=== PATIENT | female | born 1935 | race Caucasian/White ===

== ENCOUNTER → 2017-08-22 | Outpatient (REF) | payer OTHER, MEDICAID ==
[~2017-08-22] MED LIST: /ADVA50050; /TIOT18INH; CARD120T3; CARDIZEM CD; DUONSOL; LASI40TA; PRED20TA; ROBITUSSIN
[2017-08-23 09:54] LABS: CALCIUM LEVEL 9.1 MG/DL (8.8-10.2); GLOMERULAR FILTRATION RATE 56.8 (>32); POTASSIUM SERUM 4.8 MEQ/L (3.5-5.1)
== END ==
LOC: M LAB REF 16:05
PROVIDERS: ATTEND Internal Medicine Cardiovascular Disease
DX: J44.9 Chronic obstructive pulmonary disease, unspecified (principal); S76.211A Strain of adductor muscle, fascia and tendon of right thigh, initial encounter; X58.XXXA Exposure to other specified factors, initial encounter; Y92.89 Other specified places as the place of occurrence of the external cause; Y93.89 Activity, other specified; Y99.8 Other external cause status
CPT/HCPCS: 80048; G0463

== ENCOUNTER → 2017-10-18 | Outpatient (REF) | payer OTHER, MEDICAID | LOC: M SFHCCLAY 15:36 | DX: R35.0 Frequency of micturition (principal) | CPT/HCPCS: 87086 ==

== ENCOUNTER → 2017-11-06 | Outpatient (CLI) | payer OTHER, MEDICAID | LOC: M CLY 13:41 | DX: M16.12 Unilateral primary osteoarthritis, left hip (principal); M25.752 Osteophyte, left hip; M25.852 Other specified joint disorders, left hip; I10 Essential (primary) hypertension | CPT/HCPCS: 73502; 80048 ==

== ENCOUNTER → 2017-11-06 | Outpatient (REF) | payer OTHER, MEDICAID ==
[2017-11-06 18:24] LABS: ANION GAP 5 MEQ/L (8-16); BLOOD UREA NITROGEN 20 MG/DL (7-18); CALCIUM LEVEL 9.1 MG/DL (8.8-10.2); CARBON DIOXIDE LEVEL 36 MEQ/L (21-32); CHLORIDE LEVEL 98 MEQ/L (98-107); CREATININE FOR GFR 1.02 MG/DL (0.55-1.30); GLOMERULAR FILTRATION RATE 55.5 (>32); GLUCOSE, FASTING 131 MG/DL (70-100); SODIUM LEVEL 139 MEQ/L (136-145)
== END ==
LOC: M LABDRAWC 16:59
DX: I10 Essential (primary) hypertension (principal)
CPT/HCPCS: 80048

== ENCOUNTER → 2018-01-24 | Outpatient (REF) | payer OTHER, MEDICAID ==
[2018-01-24 18:37] LABS: ANION GAP 4 MEQ/L (8-16); BLOOD UREA NITROGEN 18 MG/DL (7-18); CALCIUM LEVEL 8.9 MG/DL (8.8-10.2); CARBON DIOXIDE LEVEL 38 MEQ/L (21-32); CHLORIDE LEVEL 99 MEQ/L (98-107); CREATININE FOR GFR 1.09 MG/DL (0.55-1.30); GLOMERULAR FILTRATION RATE 51.4 (>32); GLUCOSE, FASTING 101 MG/DL (70-100); POTASSIUM SERUM 4.3 MEQ/L (3.5-5.1); SODIUM LEVEL 141 MEQ/L (136-145)
== END ==
LOC: M LABDRWCV 17:37
DX: R60.9 Edema, unspecified (principal); I42.9 Cardiomyopathy, unspecified; N18.9 Chronic kidney disease, unspecified
CPT/HCPCS: 80048

== ENCOUNTER → 2018-02-20 | Outpatient (REF) | payer OTHER, MEDICAID ==
[2018-02-21 12:13] LABS: BASO # 0.1 10^3/uL (0.0-0.2); BASO % 0.4 % (0.0-1.0); EOS # 0.1 10^3/uL (0.0-0.50); EOS % 0.5 % (0.0-3.0); HEMATOCRIT 46.1 % (36.0-47.0); HEMOGLOBIN 14.7 g/dl (12.0-15.5); IMMATURE GRANULOCYTE % 0.6 % (0-3.0); LYMPH # 1.2 10^3/uL (1.5-4.5); LYMPH % 6.5 % (24.0-44.0); MEAN CORPUSCULAR HGB CONC 31.9 g/dl (32.0-36.5); MEAN CORPUSCULAR VOLUME 94.1 fl (80.0-96.0); MONO # 0.8 10^3/uL (0.0-0.8); MONO % 4.3 % (0.0-5.0); NEUTROPHILS # 16.4 10^3/uL (1.8-7.7); NEUTROPHILS % 87.7 % (36.0-66.0); PLATELET COUNT, AUTOMATED 251 10^3/uL (150-450); RED CELL DISTRIBUTION WIDTH 14.6 % (11.5-14.5); WHITE BLOOD COUNT 18.7 10^3/uL (4.0-10.0)
[2018-02-21 12:56] LABS: ALBUMIN/GLOBULIN RATIO 0.77 (1.00-1.93); ALKALINE PHOSPHATASE 76 U/L (45-117); ALT/SGPT 25 U/L (12-78); ANION GAP 9 MEQ/L (8-16); AST/SGOT 16 U/L (7-37); BILIRUBIN,TOTAL 0.4 MG/DL (0.2-1.0); BLOOD UREA NITROGEN 35 MG/DL (7-18); CALCIUM LEVEL 9.3 MG/DL (8.8-10.2); CARBON DIOXIDE LEVEL 40 MEQ/L (21-32); CHLORIDE LEVEL 89 MEQ/L (98-107); CHOLESTEROL LEVEL 179 MG/DL (<200); CHOLESTEROL RISK RATIO 2.934 (<5); CREATININE FOR GFR 1.36 MG/DL (0.55-1.30); DIGOXIN LEVEL 1.4 NG/ML (0.5-2.0); GLOMERULAR FILTRATION RATE 39.8 (>32); GLUCOSE, FASTING 176 MG/DL (70-100); HDL CHOLESTEROL 61 MG/DL (>40); LDL CHOLESTEROL 90.4 MG/DL (<100); NON-HDL-C 118 MG/DL; POTASSIUM SERUM 3.7 MEQ/L (3.5-5.1); SODIUM LEVEL 138 MEQ/L (136-145); TOTAL PROTEIN 6.9 GM/DL (6.4-8.2); TRIGLYCERIDES LEVEL 138 MG/DL (<150)
== END ==
LOC: M SFHCCLAY 14:21
DX: I10 Essential (primary) hypertension (principal); M16.12 Unilateral primary osteoarthritis, left hip; Z79.899 Other long term (current) drug therapy
CPT/HCPCS: 80162

== ENCOUNTER → 2018-03-11 | Outpatient (REF) | payer OTHER, MEDICAID ==
[2018-03-11 17:07] LABS: ANION GAP 9 MEQ/L (8-16); BLOOD UREA NITROGEN 21 MG/DL (7-18); CALCIUM LEVEL 9.7 MG/DL (8.8-10.2); CARBON DIOXIDE LEVEL 39 MEQ/L (21-32); CHLORIDE LEVEL 90 MEQ/L (98-107); CREATININE FOR GFR 1.28 MG/DL (0.55-1.30); GLOMERULAR FILTRATION RATE 42.7 (>32); GLUCOSE, FASTING 175 MG/DL (70-100); SODIUM LEVEL 138 MEQ/L (136-145)
[2018-03-11 18:18] LABS: BASO # 0.1 10^3/uL (0.0-0.2); BASO % 0.4 % (0.0-1.0); EOS # 0.1 10^3/uL (0.0-0.50); EOS % 0.8 % (0.0-3.0); HEMATOCRIT 44.2 % (36.0-47.0); HEMOGLOBIN 13.7 g/dl (12.0-15.5); IMMATURE GRANULOCYTE % 0.6 % (0-3.0); LYMPH # 2.2 10^3/uL (1.5-4.5); LYMPH % 13.8 % (24.0-44.0); MEAN CORPUSCULAR VOLUME 96.9 fl (80.0-96.0); MONO # 0.6 10^3/uL (0.0-0.8); NEUTROPHILS # 12.5 10^3/uL (1.8-7.7); NEUTROPHILS % 80.4 % (36.0-66.0); PLATELET COUNT, AUTOMATED 258 10^3/uL (150-450); RED BLOOD COUNT 4.56 10^6/uL (4.00-5.40); RED CELL DISTRIBUTION WIDTH 14.6 % (11.5-14.5); WHITE BLOOD COUNT 15.5 10^3/uL (4.0-10.0)
== END ==
LOC: M SFHCCAPE 10:48
DX: D72.829 Elevated white blood cell count, unspecified (principal); I27.9 Pulmonary heart disease, unspecified
CPT/HCPCS: 80048

== ENCOUNTER → 2018-03-26 | Outpatient (REF) | payer OTHER, MEDICAID ==
[2018-03-26 19:51] LABS: ANION GAP 5 MEQ/L (8-16); BLOOD UREA NITROGEN 13 MG/DL (7-18); CALCIUM LEVEL 8.9 MG/DL (8.8-10.2); CARBON DIOXIDE LEVEL 42 MEQ/L (21-32); CHLORIDE LEVEL 94 MEQ/L (98-107); CREATININE FOR GFR 1.14 MG/DL (0.55-1.30); GLOMERULAR FILTRATION RATE 48.8 (>32); GLUCOSE, FASTING 114 MG/DL (70-100); POTASSIUM SERUM 3.6 MEQ/L (3.5-5.1); SODIUM LEVEL 141 MEQ/L (136-145)
== END ==
LOC: M SFHCCLAY 10:56
DX: R60.0 Localized edema (principal)
CPT/HCPCS: 80048

== ENCOUNTER → 2018-08-19 | Outpatient (REF) | payer OTHER, MEDICAID ==
[2018-08-20 12:30] LABS: ALBUMIN 3.2 GM/DL (3.2-5.2); ALKALINE PHOSPHATASE 85 U/L (45-117); ALT/SGPT 34 U/L (12-78); ANION GAP 5 MEQ/L (8-16); AST/SGOT 21 U/L (7-37); BILIRUBIN,TOTAL 0.3 MG/DL (0.2-1.0); BLOOD UREA NITROGEN 21 MG/DL (7-18); CALCIUM LEVEL 9.6 MG/DL (8.8-10.2); CARBON DIOXIDE LEVEL 38 MEQ/L (21-32); CHLORIDE LEVEL 94 MEQ/L (98-107); CREATININE FOR GFR 1.21 MG/DL (0.55-1.30); DIGOXIN LEVEL 1.1 NG/ML (0.5-2.0); GLOMERULAR FILTRATION RATE 45.5 (>32); GLUCOSE, FASTING 171 MG/DL (70-100); POTASSIUM SERUM 4.8 MEQ/L (3.5-5.1); SODIUM LEVEL 137 MEQ/L (136-145); TOTAL PROTEIN 7.2 GM/DL (6.4-8.2)
== END ==
LOC: M SFHCCLAY 15:09
DX: R60.0 Localized edema (principal); I27.9 Pulmonary heart disease, unspecified; Z79.899 Other long term (current) drug therapy; Z23 Encounter for immunization
CPT/HCPCS: 80162

== ENCOUNTER 2018-09-01 17:15 | Inpatient (IN) | payer OTHER, MEDICAID ==
[~2018-09-01 17:15] MED LIST changes: -/ADVA50050; -/TIOT18INH; -CARD120T3; -CARDIZEM CD; -DUONSOL; +ETOMIDATE INJ 20MG/10ML VIAL; -LASI40TA; -PRED20TA; -ROBITUSSIN; +SUCCINYLCHOLINE 100 MG/5 ML SYRINGE (J0330)
[2018-09-01] MEDS: ETOMIDATE INJ 20MG/10ML VIAL IV (17:35)
[2018-09-01] MEDS: SUCCINYLCHOLINE INJ 200 MG/10 ML VIAL (J0330) IV (17:35)
[2018-09-01 17:50] LABS: BASO # 0.1 10^3/uL (0.0-0.2); BASO % 0.2 % (0.0-1.0); HEMATOCRIT 49.2 % (36.0-47.0); HEMOGLOBIN 14.7 g/dl (12.0-15.5); IMMATURE GRANULOCYTE % 0.7 % (0-3.0); LYMPH # 0.4 10^3/uL (1.5-4.5); LYMPH % 1.7 % (24.0-44.0); MEAN CORPUSCULAR HEMOGLOBIN 29.2 pg (27.0-33.0); MEAN CORPUSCULAR HGB CONC 29.9 g/dl (32.0-36.5); MEAN CORPUSCULAR VOLUME 97.8 fl (80.0-96.0); MONO % 3.9 % (0.0-5.0); NEUTROPHILS # 24.3 10^3/uL (1.8-7.7); NEUTROPHILS % 93.5 % (36.0-66.0); PLATELET COUNT, AUTOMATED 242 10^3/uL (150-450); RED BLOOD COUNT 5.03 10^6/uL (4.00-5.40); RED CELL DISTRIBUTION WIDTH 15.9 % (11.5-14.5)
[2018-09-01] MEDS: PROPOFOL 1,000 MG in APPROPRIATE DILUENT 1 EA IV (17:52)
[2018-09-01] MEDS: NS 1,000 ML IV ×2 (17:52→18:25)
[2018-09-01] MEDS ORDERED: MIDAZOLAM INJ 5 MG/ML VIAL (J2250) As Ordered (17:55)
[2018-09-01] MEDS: MIDAZOLAM INJ 5 MG/ML VIAL (J2250) IM (18:00)
[2018-09-01 18:11] LABS: ABG BASE EXCESS 12.7 (-2.0-2.0); ABG HCO3 46.9 MEQ/L (22.0-26.0); ABG PARTIAL PRESSURE O2 338.5 mmHg (75.0-100.0); ABG STANDARD HCO3 36.7 MEQ/L (22.0-26.0); ABG TOTAL CO2 50.8 MEQ/L (23.0-31.0)
[2018-09-01 18:13] LABS: ABG PARTIAL PRESSURE CO2 127.3 mmHg (35.0-45.0); ABG pH (ARTERIAL) 7.184 UNITS (7.350-7.450)
[2018-09-01 18:18] LABS: LACTIC ACID SEPSIS PROTOCOL 1.2 MMOL/L (0.4-2.0)
[2018-09-01] MEDS: dexameTHASONE 20 MG/5 ML VIAL (J1100) IV (18:20)
[2018-09-01] MEDS: MIDAZOLAM INJ 2 MG/2 ML VIAL (J2250) IV ×4 (18:35→22:20)
[2018-09-01] MEDS ORDERED: MIDAZOLAM INJ 2 MG/2 ML VIAL (J2250) As Ordered (18:35)
[2018-09-01 18:36] LABS: ANION GAP 3 MEQ/L (8-16); BLOOD UREA NITROGEN 17 MG/DL (7-18); CALCIUM LEVEL 10.3 MG/DL (8.8-10.2); CHLORIDE LEVEL 91 MEQ/L (98-107); CPK CREATINE PHOSPHOKINASE 131 U/L (26-192); CREATININE FOR GFR 1.04 MG/DL (0.55-1.30); GLOMERULAR FILTRATION RATE 54.1 (>32); GLUCOSE, FASTING 230 MG/DL (70-100); MB/CK RELATIVE INDEX 15.95 (< OR =4); NT-PRO BNP 2839 PG/ML (<450); POTASSIUM SERUM 4.5 MEQ/L (3.5-5.1); SODIUM LEVEL 140 MEQ/L (136-145); THYROID STIMULATING HORMONE 0.214 uIU/ML (0.358-3.740); TROPONIN I 0.35 NG/ML (< 0.10)
[2018-09-01] MEDS: PIPERACILLIN/TAZOBACTAM SOD 3.375 GM in D5W MINI-BAG PLUS 50 ML IV (18:46)
[2018-09-01 18:47] LABS: CARBON DIOXIDE LEVEL 46 MEQ/L (21-32)
[2018-09-01] MEDS: IPRATROPIUM 0.5MG/ALBUTEROL 2.5MG INH SOL UD 3ML (DUONEB)(J7620) NEB ×5 (18:52→23:20)
[2018-09-01 19:22] LABS: ABG BASE EXCESS 8.2 (-2.0-2.0); ABG O2 SATURATION 98.8 % (95.0-99.0); ABG PARTIAL PRESSURE O2 130.5 mmHg (75.0-100.0); ABG TOTAL CO2 40.5 MEQ/L (23.0-31.0); ABG pH (ARTERIAL) 7.287 UNITS (7.350-7.450)
[2018-09-01 19:26] LABS: ABG PARTIAL PRESSURE CO2 81.5 mmHg (35.0-45.0)
[2018-09-01] MEDS: D5W/0.45% SODIUM CHLORIDE 1,000 ML IV (19:39)
[2018-09-01] MEDS: AZITHROMYCIN INJ 500 MG, VIAL MATE ADAPTER 1 EACH in D5W 250 ML IV (21:36)
[2018-09-01] MEDS: HEPARIN SOD (PORCINE) 5000 UNITS/ML VIAL SC (21:36)
[2018-09-01] MEDS: methylPREDNISolone INJ 125 MG/2 ML VIAL (J2930) IV (21:36)
[2018-09-01] MEDS: cefTRIAXone SOD 1 GM in D5W MINI-BAG PLUS 50 ML IV (21:37)
[2018-09-01 22:56] LABS: ABG BASE EXCESS -1.7 (-2.0-2.0); ABG HCO3 23.2 MEQ/L (22.0-26.0); ABG PARTIAL PRESSURE O2 122.2 mmHg (75.0-100.0); ABG STANDARD HCO3 23.1 MEQ/L (22.0-26.0); ABG TOTAL CO2 24.5 MEQ/L (23.0-31.0); ABG pH (ARTERIAL) 7.382 UNITS (7.350-7.450)
[2018-09-02] MEDS: MIDAZOLAM INJ 2 MG/2 ML VIAL (J2250) IV ×6 (00:07→20:32)
[2018-09-02] MEDS: CHLORHEXIDINE ORAL RINSE 0.12%/15ML 120ML BOTTLE MT (00:08)
[2018-09-02] MEDS: IPRATROPIUM 0.5MG/ALBUTEROL 2.5MG INH SOL UD 3ML (DUONEB)(J7620) NEB ×5 (04:12→20:00)
[2018-09-02] MEDS: methylPREDNISolone INJ 125 MG/2 ML VIAL (J2930) IV ×3 (04:52→20:13)
[2018-09-02] MEDS: D5W/0.45% SODIUM CHLORIDE 1,000 ML IV ×4 (04:52→20:13)
[2018-09-02] MEDS: PROPOFOL 1,000 MG in APPROPRIATE DILUENT 1 EA IV ×3 (06:13→20:16)
[2018-09-02] MEDS: HEPARIN SOD (PORCINE) 5000 UNITS/ML VIAL SC ×3 (06:14→21:30)
[2018-09-02 06:16] LABS: BASO % 0.1 % (0.0-1.0); HEMATOCRIT 40.8 % (36.0-47.0); HEMOGLOBIN 12.7 g/dl (12.0-15.5); IMMATURE GRANULOCYTE % 0.4 % (0-3.0); LYMPH # 0.3 10^3/uL (1.5-4.5); LYMPH % 1.7 % (24.0-44.0); MEAN CORPUSCULAR HEMOGLOBIN 28.6 pg (27.0-33.0); MEAN CORPUSCULAR HGB CONC 31.1 g/dl (32.0-36.5); MEAN CORPUSCULAR VOLUME 91.9 fl (80.0-96.0); MONO # 0.2 10^3/uL (0.0-0.8); MONO % 1.3 % (0.0-5.0); NEUTROPHILS % 96.5 % (36.0-66.0); PLATELET COUNT, AUTOMATED 180 10^3/uL (150-450); RED BLOOD COUNT 4.44 10^6/uL (4.00-5.40); RED CELL DISTRIBUTION WIDTH 15.9 % (11.5-14.5); WHITE BLOOD COUNT 16.6 10^3/uL (4.0-10.0)
[2018-09-02 06:19] LABS: ABG BASE EXCESS 6.6 (-2.0-2.0); ABG HCO3 32.5 MEQ/L (22.0-26.0); ABG O2 SATURATION 97.7 % (95.0-99.0); ABG PARTIAL PRESSURE CO2 51.9 mmHg (35.0-45.0); ABG PARTIAL PRESSURE O2 90.1 mmHg (75.0-100.0); ABG STANDARD HCO3 30.5 MEQ/L (22.0-26.0); ABG TOTAL CO2 34.1 MEQ/L (23.0-31.0); ABG pH (ARTERIAL) 7.415 UNITS (7.350-7.450)
[2018-09-02 06:32] LABS: ALKALINE PHOSPHATASE 74 U/L (45-117); ALT/SGPT 52 U/L (12-78); ANION GAP 6 MEQ/L (8-16); AST/SGOT 28 U/L (7-37); BLOOD UREA NITROGEN 24 MG/DL (7-18); CALCIUM LEVEL 9.4 MG/DL (8.8-10.2); CARBON DIOXIDE LEVEL 36 MEQ/L (21-32); CHLORIDE LEVEL 94 MEQ/L (98-107); CPK CREATINE PHOSPHOKINASE 78 U/L (26-192); CREATININE FOR GFR 1.35 MG/DL (0.55-1.30); GLOMERULAR FILTRATION RATE 40.1 (>32); GLUCOSE, FASTING 297 MG/DL (70-100); LDH LACTATE DEHYDROGENASE 235 U/L (84-246); PHOSPHORUS LEVEL 1.1 MG/DL (2.5-4.9); POTASSIUM SERUM 3.8 MEQ/L (3.5-5.1); SODIUM LEVEL 136 MEQ/L (136-145)
[2018-09-02 06:33] LABS: ALBUMIN 2.4 GM/DL (3.2-5.2); ALBUMIN/GLOBULIN RATIO 0.57 (1.00-1.93); BILIRUBIN,TOTAL 0.3 MG/DL (0.2-1.0); CHOLESTEROL LEVEL 144 MG/DL (< 200); TOTAL PROTEIN 6.6 GM/DL (6.4-8.2); TRIGLYCERIDES LEVEL 63 MG/DL (<150)
[2018-09-02 06:45] LABS: ADD MANUAL DIFFER NO; DIFF SLIDE NUMBER 122; POSITIVE DIFF POS FLAG
[2018-09-02] MEDS: DIGOXIN 0.125 MG TAB PO (09:00)
[2018-09-02] MEDS: CHLORHEXIDINE GLUCONATE 0.12 % 15ML UDC (PERIDEX ORAL RINSE) MT ×2 (09:37→20:14)
[2018-09-02] MEDS ORDERED: DEXTROSE 50% 50 ML SYRINGE IV (09:45)
[2018-09-02] MEDS ORDERED: GLUCOSE 4 GM CHEW TABLET PO (09:45)
[2018-09-02] MEDS ORDERED: GLUCAGON FOR INJ 1 MG VIAL (J1610) SC (09:45)
[2018-09-02 09:47] LABS: MB/CK RELATIVE INDEX 10.38 (< OR =4); NT-PRO BNP 3834 PG/ML (<450)
[2018-09-02 12:12] LABS: ABG BASE EXCESS 8.7 (-2.0-2.0); ABG HCO3 35.3 MEQ/L (22.0-26.0); ABG O2 SATURATION 96.3 % (95.0-99.0); ABG PARTIAL PRESSURE CO2 57.4 mmHg (35.0-45.0); ABG PARTIAL PRESSURE O2 78.4 mmHg (75.0-100.0); ABG STANDARD HCO3 32.5 MEQ/L (22.0-26.0); ABG TOTAL CO2 37.1 MEQ/L (23.0-31.0); ABG pH (ARTERIAL) 7.407 UNITS (7.350-7.450)
[2018-09-02 12:16] LABS: BEDSIDE GLUCOSE 342 MG/DL (83-110)
[2018-09-02] MEDS: HumaLOG INSULIN (NovoLOG) PER UNIT SC ×2 (12:17→18:10)
[2018-09-02] MEDS: MORPHINE 4 MG/ML 1ML VIAL/SYRINGE (J2270) IV (14:06)
[2018-09-02] MEDS ORDERED: SODIUM CHLORIDE 0.9% INJ 10 ML SYR IV (14:15)
[2018-09-02] MEDS ORDERED: SLF 3 ML SYR IV (14:15)
[2018-09-02 14:27] LABS: ANION GAP 7 MEQ/L (8-16); BLOOD UREA NITROGEN 24 MG/DL (7-18); CALCIUM LEVEL 8.8 MG/DL (8.8-10.2); CARBON DIOXIDE LEVEL 35 MEQ/L (21-32); CHLORIDE LEVEL 94 MEQ/L (98-107); CREATININE FOR GFR 1.36 MG/DL (0.55-1.30); GLOMERULAR FILTRATION RATE 39.7 (>32); GLUCOSE, FASTING 340 MG/DL (70-100); POTASSIUM SERUM 3.8 MEQ/L (3.5-5.1); SODIUM LEVEL 136 MEQ/L (136-145)
[2018-09-02 14:58] LABS: CPK CREATINE PHOSPHOKINASE 60 U/L (26-192); MB/CK RELATIVE INDEX 7.67 (< OR =4); TROPONIN I 0.62 NG/ML (< 0.10)
[2018-09-02 16:15] LABS: ABG BASE EXCESS 7.2 (-2.0-2.0); ABG HCO3 33.5 MEQ/L (22.0-26.0); ABG O2 SATURATION 97.3 % (95.0-99.0); ABG PARTIAL PRESSURE CO2 55.4 mmHg (35.0-45.0); ABG TOTAL CO2 35.2 MEQ/L (23.0-31.0)
[2018-09-02 18:03] LABS: BEDSIDE GLUCOSE 383 MG/DL (83-110)
[2018-09-02] MEDS: ASPIRIN 325 MG TAB NG (18:09)
[2018-09-02] MEDS: PANTOPRAZOLE 40MG INJ (PROTONIX) (C9113) IV (20:12)
[2018-09-02] MEDS: AZITHROMYCIN INJ 500 MG, VIAL MATE ADAPTER 1 EACH in D5W 250 ML IV (20:13)
[2018-09-02] MEDS: cefTRIAXone SOD 1 GM in D5W MINI-BAG PLUS 50 ML IV (21:29)
[2018-09-02] MEDS: SLF 3 ML SYR IV (21:30)
[2018-09-02] MEDS: SODIUM CHLORIDE 0.9% INJ 10 ML SYR IV (21:30)
[2018-09-02 23:58] LABS: BEDSIDE GLUCOSE 356 MG/DL (83-110)
[2018-09-03] MEDS: HumaLOG INSULIN (NovoLOG) PER UNIT SC ×5 (00:01→23:16)
[2018-09-03] MEDS: PROPOFOL 1,000 MG in APPROPRIATE DILUENT 1 EA IV ×4 (00:02→23:17)
[2018-09-03] MEDS: MIDAZOLAM INJ 2 MG/2 ML VIAL (J2250) IV ×5 (00:02→06:34)
[2018-09-03] MEDS: IPRATROPIUM 0.5MG/ALBUTEROL 2.5MG INH SOL UD 3ML (DUONEB)(J7620) NEB ×7 (00:05→23:40)
[2018-09-03] MEDS: D5W/0.45% SODIUM CHLORIDE 1,000 ML IV ×2 (02:00→05:20)
[2018-09-03 05:12] LABS: BEDSIDE GLUCOSE 421 MG/DL (83-110)
[2018-09-03] MEDS: methylPREDNISolone INJ 125 MG/2 ML VIAL (J2930) IV ×3 (05:14→20:14)
[2018-09-03] MEDS: HEPARIN SOD (PORCINE) 5000 UNITS/ML VIAL SC ×3 (05:18→21:05)
[2018-09-03] MEDS: SODIUM CHLORIDE 0.9% INJ 10 ML SYR IV ×3 (05:19→21:05)
[2018-09-03] MEDS: SLF 3 ML SYR IV ×3 (05:19→21:05)
[2018-09-03 05:20] LABS: BASO % 0.1 % (0.0-1.0); HEMATOCRIT 36.9 % (36.0-47.0); HEMOGLOBIN 11.5 g/dl (12.0-15.5); IMMATURE GRANULOCYTE % 0.9 % (0-3.0); LYMPH # 0.3 10^3/uL (1.5-4.5); LYMPH % 1.9 % (24.0-44.0); MEAN CORPUSCULAR HEMOGLOBIN 28.8 pg (27.0-33.0); MEAN CORPUSCULAR HGB CONC 31.2 g/dl (32.0-36.5); MEAN CORPUSCULAR VOLUME 92.3 fl (80.0-96.0); MONO # 0.5 10^3/uL (0.0-0.8); MONO % 2.9 % (0.0-5.0); NEUTROPHILS # 15.3 10^3/uL (1.8-7.7); NEUTROPHILS % 94.2 % (36.0-66.0); PLATELET COUNT, AUTOMATED 166 10^3/uL (150-450); WHITE BLOOD COUNT 16.2 10^3/uL (4.0-10.0)
[2018-09-03 05:48] LABS: ABG BASE EXCESS 1.7 (-2.0-2.0); ABG HCO3 28.4 MEQ/L (22.0-26.0); ABG O2 SATURATION 96.8 % (95.0-99.0); ABG PARTIAL PRESSURE CO2 53.9 mmHg (35.0-45.0); ABG PARTIAL PRESSURE O2 86.2 mmHg (75.0-100.0); ABG TOTAL CO2 30.1 MEQ/L (23.0-31.0)
[2018-09-03 05:52] LABS: ALBUMIN 2.2 GM/DL (3.2-5.2); ALBUMIN/GLOBULIN RATIO 0.71 (1.00-1.93); ALKALINE PHOSPHATASE 73 U/L (45-117); ALT/SGPT 41 U/L (12-78); ANION GAP 6 MEQ/L (8-16); AST/SGOT 14 U/L (7-37); BILIRUBIN,TOTAL 0.1 MG/DL (0.2-1.0); BLOOD UREA NITROGEN 26 MG/DL (7-18); CALCIUM LEVEL 8.2 MG/DL (8.8-10.2); CARBON DIOXIDE LEVEL 34 MEQ/L (21-32); CHLORIDE LEVEL 97 MEQ/L (98-107); CHOLESTEROL LEVEL 129 MG/DL (< 200); CPK CREATINE PHOSPHOKINASE 36 U/L (26-192); CREATININE FOR GFR 1.15 MG/DL (0.55-1.30); GLOMERULAR FILTRATION RATE 48.2 (>32); GLUCOSE, FASTING 434 MG/DL (70-100); LDH LACTATE DEHYDROGENASE 183 U/L (84-246); PHOSPHORUS LEVEL 1.4 MG/DL (2.5-4.9); SODIUM LEVEL 137 MEQ/L (136-145); TOTAL PROTEIN 5.3 GM/DL (6.4-8.2); TRIGLYCERIDES LEVEL 79 MG/DL (<150)
[2018-09-03] MEDS ORDERED: ASPIRIN 81 MG ENTERIC TAB PO (09:00)
[2018-09-03] MEDS: CHLORHEXIDINE GLUCONATE 0.12 % 15ML UDC (PERIDEX ORAL RINSE) MT ×2 (09:15→21:04)
[2018-09-03] MEDS: ASPIRIN 81 MG CHEW TABLET NG (09:15)
[2018-09-03] MEDS: FUROSEMIDE 20 MG/2 ML VIAL (J1940) IV ×2 (09:15→17:22)
[2018-09-03 11:19] LABS: ABG BASE EXCESS 7.2 (-2.0-2.0); ABG HCO3 34.8 MEQ/L (22.0-26.0); ABG O2 SATURATION 96.1 % (95.0-99.0); ABG PARTIAL PRESSURE O2 76.7 mmHg (75.0-100.0); ABG TOTAL CO2 36.8 MEQ/L (23.0-31.0); ABG pH (ARTERIAL) 7.353 UNITS (7.350-7.450)
[2018-09-03 11:20] LABS: ABG PARTIAL PRESSURE CO2 64.1 mmHg (35.0-45.0)
[2018-09-03 11:31] LABS: BEDSIDE GLUCOSE 290 MG/DL (83-110)
[2018-09-03 17:16] LABS: BEDSIDE GLUCOSE 212 MG/DL (83-110)
[2018-09-03] MEDS: PANTOPRAZOLE 40MG INJ (PROTONIX) (C9113) IV (20:14)
[2018-09-03] MEDS: cefTRIAXone SOD 1 GM in D5W MINI-BAG PLUS 50 ML IV (20:14)
[2018-09-03 23:16] LABS: BEDSIDE GLUCOSE 234 MG/DL (83-110)
[2018-09-04] MEDS: IPRATROPIUM 0.5MG/ALBUTEROL 2.5MG INH SOL UD 3ML (DUONEB)(J7620) NEB ×6 (02:27→23:35)
[2018-09-04 04:11] LABS: BASO % 0.2 % (0.0-1.0); HEMATOCRIT 38.7 % (36.0-47.0); HEMOGLOBIN 12.1 g/dl (12.0-15.5); IMMATURE GRANULOCYTE % 1.6 % (0-3.0); LYMPH # 0.3 10^3/uL (1.5-4.5); LYMPH % 2.3 % (24.0-44.0); MEAN CORPUSCULAR HEMOGLOBIN 28.7 pg (27.0-33.0); MEAN CORPUSCULAR HGB CONC 31.3 g/dl (32.0-36.5); MEAN CORPUSCULAR VOLUME 91.9 fl (80.0-96.0); MONO # 0.4 10^3/uL (0.0-0.8); MONO % 2.4 % (0.0-5.0); NEUTROPHILS # 14.1 10^3/uL (1.8-7.7); NEUTROPHILS % 93.5 % (36.0-66.0); PLATELET COUNT, AUTOMATED 181 10^3/uL (150-450); RED BLOOD COUNT 4.21 10^6/uL (4.00-5.40); RED CELL DISTRIBUTION WIDTH 16.7 % (11.5-14.5); WHITE BLOOD COUNT 15.1 10^3/uL (4.0-10.0)
[2018-09-04 04:40] LABS: ALBUMIN 2.4 GM/DL (3.2-5.2); ALKALINE PHOSPHATASE 83 U/L (45-117); ALT/SGPT 62 U/L (12-78); ANION GAP 5 MEQ/L (8-16); AST/SGOT 26 U/L (7-37); BILIRUBIN,TOTAL 0.2 MG/DL (0.2-1.0); BLOOD UREA NITROGEN 37 MG/DL (7-18); CALCIUM LEVEL 8.4 MG/DL (8.8-10.2); CARBON DIOXIDE LEVEL 36 MEQ/L (21-32); CHLORIDE LEVEL 98 MEQ/L (98-107); CHOLESTEROL LEVEL 149 MG/DL (< 200); CPK CREATINE PHOSPHOKINASE 28 U/L (26-192); CREATININE FOR GFR 1.23 MG/DL (0.55-1.30); GLOMERULAR FILTRATION RATE 44.6 (>32); GLUCOSE, FASTING 245 MG/DL (70-100); LDH LACTATE DEHYDROGENASE 206 U/L (84-246); PHOSPHORUS LEVEL 2.3 MG/DL (2.5-4.9); POTASSIUM SERUM 4.4 MEQ/L (3.5-5.1); SODIUM LEVEL 139 MEQ/L (136-145); TOTAL PROTEIN 6.4 GM/DL (6.4-8.2); TRIGLYCERIDES LEVEL 126 MG/DL (<150)
[2018-09-04] MEDS: PROPOFOL 1,000 MG in APPROPRIATE DILUENT 1 EA IV ×3 (05:05→16:13)
[2018-09-04] MEDS: methylPREDNISolone INJ 125 MG/2 ML VIAL (J2930) IV (05:05)
[2018-09-04] MEDS: HEPARIN SOD (PORCINE) 5000 UNITS/ML VIAL SC ×3 (05:06→21:05)
[2018-09-04] MEDS: HumaLOG INSULIN (NovoLOG) PER UNIT SC ×3 (05:07→17:57)
[2018-09-04] MEDS: SODIUM CHLORIDE 0.9% INJ 10 ML SYR IV ×3 (05:07→21:05)
[2018-09-04] MEDS: SLF 3 ML SYR IV ×3 (05:07→21:05)
[2018-09-04 06:04] LABS: ABG BASE EXCESS 8.8 (-2.0-2.0); ABG HCO3 34.4 MEQ/L (22.0-26.0); ABG O2 SATURATION 97.4 % (95.0-99.0); ABG PARTIAL PRESSURE CO2 51.5 mmHg (35.0-45.0); ABG STANDARD HCO3 32.5 MEQ/L (22.0-26.0); ABG TOTAL CO2 35.9 MEQ/L (23.0-31.0); ABG pH (ARTERIAL) 7.442 UNITS (7.350-7.450)
[2018-09-04] MEDS: ASPIRIN 81 MG CHEW TABLET NG (08:56)
[2018-09-04] MEDS: FUROSEMIDE 20 MG/2 ML VIAL (J1940) IV ×2 (08:56→16:18)
[2018-09-04] MEDS: CHLORHEXIDINE GLUCONATE 0.12 % 15ML UDC (PERIDEX ORAL RINSE) MT ×2 (08:56→21:05)
[2018-09-04] MEDS: BISACODYL 10 MG SUPP PR (09:02)
[2018-09-04] MEDS: POLYVINYL ALCOHOL OPHTH SOLN 15 ML(LIQUITEARS) OU ×4 (10:59→21:04)
[2018-09-04 12:07] LABS: BEDSIDE GLUCOSE 201 MG/DL (83-110)
[2018-09-04 17:55] LABS: BEDSIDE GLUCOSE 222 MG/DL (83-110)
[2018-09-04] MEDS: methylPREDNISolone INJ 40 MG/1 ML VIAL (J2920) IV (17:57)
[2018-09-04] MEDS: PANTOPRAZOLE 40MG INJ (PROTONIX) (C9113) IV (21:04)
[2018-09-04] MEDS: cefTRIAXone SOD 1 GM in D5W MINI-BAG PLUS 50 ML IV (21:05)
[2018-09-04 23:24] LABS: BEDSIDE GLUCOSE 258 MG/DL (83-110)
[2018-09-05] MEDS: IPRATROPIUM 0.5MG/ALBUTEROL 2.5MG INH SOL UD 3ML (DUONEB)(J7620) NEB ×6 (04:09→22:50)
[2018-09-05 04:36] LABS: BASO # 0.1 10^3/uL (0.0-0.2); BASO % 0.4 % (0.0-1.0); EOS % 0.2 % (0.0-3.0); HEMATOCRIT 38.8 % (36.0-47.0); LYMPH # 0.4 10^3/uL (1.5-4.5); LYMPH % 3.4 % (24.0-44.0); MEAN CORPUSCULAR HEMOGLOBIN 28.6 pg (27.0-33.0); MEAN CORPUSCULAR HGB CONC 30.9 g/dl (32.0-36.5); MEAN CORPUSCULAR VOLUME 92.6 fl (80.0-96.0); MONO # 0.5 10^3/uL (0.0-0.8); NEUTROPHILS # 11.7 10^3/uL (1.8-7.7); PLATELET COUNT, AUTOMATED 189 10^3/uL (150-450); RED BLOOD COUNT 4.19 10^6/uL (4.00-5.40); RED CELL DISTRIBUTION WIDTH 16.9 % (11.5-14.5); WHITE BLOOD COUNT 13.1 10^3/uL (4.0-10.0)
[2018-09-05 05:08] LABS: ALBUMIN 2.4 GM/DL (3.2-5.2); ALBUMIN/GLOBULIN RATIO 0.62 (1.00-1.93); ALKALINE PHOSPHATASE 84 U/L (45-117); ALT/SGPT 102 U/L (12-78); ANION GAP 3 MEQ/L (8-16); AST/SGOT 41 U/L (7-37); BILIRUBIN,TOTAL 0.2 MG/DL (0.2-1.0); BLOOD UREA NITROGEN 51 MG/DL (7-18); CALCIUM LEVEL 8.3 MG/DL (8.8-10.2); CARBON DIOXIDE LEVEL 40 MEQ/L (21-32); CHLORIDE LEVEL 97 MEQ/L (98-107); CHOLESTEROL LEVEL 158 MG/DL (< 200); CPK CREATINE PHOSPHOKINASE 31 U/L (26-192); CREATININE FOR GFR 1.24 MG/DL (0.55-1.30); GLOMERULAR FILTRATION RATE 44.2 (>32); GLUCOSE, FASTING 240 MG/DL (70-100); LDH LACTATE DEHYDROGENASE 230 U/L (84-246); PHOSPHORUS LEVEL 3.1 MG/DL (2.5-4.9); POTASSIUM SERUM 4.6 MEQ/L (3.5-5.1); SODIUM LEVEL 140 MEQ/L (136-145); TOTAL PROTEIN 6.3 GM/DL (6.4-8.2); TRIGLYCERIDES LEVEL 154 MG/DL (<150)
[2018-09-05] MEDS: methylPREDNISolone INJ 40 MG/1 ML VIAL (J2920) IV ×2 (05:21→17:20)
[2018-09-05] MEDS: HEPARIN SOD (PORCINE) 5000 UNITS/ML VIAL SC ×3 (05:21→21:08)
[2018-09-05] MEDS: HumaLOG INSULIN (NovoLOG) PER UNIT SC ×2 (05:21)
[2018-09-05] MEDS: SODIUM CHLORIDE 0.9% INJ 10 ML SYR IV ×2 (05:22→12:55)
[2018-09-05] MEDS: SLF 3 ML SYR IV ×3 (05:22→21:09)
[2018-09-05 06:17] LABS: ABG BASE EXCESS 13.8 (-2.0-2.0); ABG HCO3 41.2 MEQ/L (22.0-26.0); ABG O2 SATURATION 97.2 % (95.0-99.0); ABG PARTIAL PRESSURE O2 91.9 mmHg (75.0-100.0); ABG STANDARD HCO3 37.6 MEQ/L (22.0-26.0); ABG TOTAL CO2 43.2 MEQ/L (23.0-31.0); ABG pH (ARTERIAL) 7.411 UNITS (7.350-7.450)
[2018-09-05 06:19] LABS: ABG PARTIAL PRESSURE CO2 73.2 mmHg (35.0-45.0)
[2018-09-05] MEDS: CHLORHEXIDINE GLUCONATE 0.12 % 15ML UDC (PERIDEX ORAL RINSE) MT (09:13)
[2018-09-05] MEDS: FUROSEMIDE 20 MG/2 ML VIAL (J1940) IV ×2 (09:13→17:21)
[2018-09-05] MEDS: ASPIRIN 81 MG CHEW TABLET NG (09:13)
[2018-09-05] MEDS: POLYVINYL ALCOHOL OPHTH SOLN 15 ML(LIQUITEARS) OU ×4 (09:14→21:09)
[2018-09-05 11:38] LABS: ABG BASE EXCESS 14.3 (-2.0-2.0); ABG O2 SATURATION 96.6 % (95.0-99.0); ABG PARTIAL PRESSURE O2 84.4 mmHg (75.0-100.0); ABG STANDARD HCO3 38.1 MEQ/L (22.0-26.0); ABG pH (ARTERIAL) 7.414 UNITS (7.350-7.450)
[2018-09-05 11:42] LABS: ABG PARTIAL PRESSURE CO2 67.1 mmHg (35.0-45.0)
[2018-09-05] MEDS: PANTOPRAZOLE 40MG INJ (PROTONIX) (C9113) IV (21:08)
[2018-09-05] MEDS: cefTRIAXone SOD 1 GM in D5W MINI-BAG PLUS 50 ML IV (21:08)
[2018-09-06 05:11] LABS: BASO # 0.1 10^3/uL (0.0-0.2); BASO % 0.5 % (0.0-1.0); EOS % 0.3 % (0.0-3.0); HEMATOCRIT 38.8 % (36.0-47.0); LYMPH # 0.5 10^3/uL (1.5-4.5); LYMPH % 5.4 % (24.0-44.0); MEAN CORPUSCULAR HEMOGLOBIN 28.6 pg (27.0-33.0); MEAN CORPUSCULAR HGB CONC 30.9 g/dl (32.0-36.5); MEAN CORPUSCULAR VOLUME 92.6 fl (80.0-96.0); MONO # 0.5 10^3/uL (0.0-0.8); MONO % 4.5 % (0.0-5.0); NEUTROPHILS # 8.4 10^3/uL (1.8-7.7); NEUTROPHILS % 84.3 % (36.0-66.0); PLATELET COUNT, AUTOMATED 174 10^3/uL (150-450); RED BLOOD COUNT 4.19 10^6/uL (4.00-5.40); RED CELL DISTRIBUTION WIDTH 16.7 % (11.5-14.5)
[2018-09-06 05:20] LABS: ALBUMIN 2.3 GM/DL (3.2-5.2); ALBUMIN/GLOBULIN RATIO 0.61 (1.00-1.93); ALKALINE PHOSPHATASE 73 U/L (45-117); ALT/SGPT 112 U/L (12-78); ANION GAP 3 MEQ/L (8-16); AST/SGOT 30 U/L (7-37); BILIRUBIN,TOTAL 0.2 MG/DL (0.2-1.0); BLOOD UREA NITROGEN 48 MG/DL (7-18); CALCIUM LEVEL 8.1 MG/DL (8.8-10.2); CARBON DIOXIDE LEVEL 41 MEQ/L (21-32); CHLORIDE LEVEL 96 MEQ/L (98-107); CHOLESTEROL LEVEL 174 MG/DL (< 200); CPK CREATINE PHOSPHOKINASE 44 U/L (26-192); CREATININE FOR GFR 0.98 MG/DL (0.55-1.30); GLUCOSE, FASTING 238 MG/DL (70-100); LDH LACTATE DEHYDROGENASE 239 U/L (84-246); PHOSPHORUS LEVEL 3.3 MG/DL (2.5-4.9); POTASSIUM SERUM 4.5 MEQ/L (3.5-5.1); SODIUM LEVEL 140 MEQ/L (136-145); TOTAL PROTEIN 6.1 GM/DL (6.4-8.2); TRIGLYCERIDES LEVEL 135 MG/DL (<150)
[2018-09-06] MEDS: IPRATROPIUM 0.5MG/ALBUTEROL 2.5MG INH SOL UD 3ML (DUONEB)(J7620) NEB ×5 (05:26→20:00)
[2018-09-06] MEDS: SLF 3 ML SYR IV ×3 (05:52→21:28)
[2018-09-06] MEDS: HEPARIN SOD (PORCINE) 5000 UNITS/ML VIAL SC ×3 (05:52→21:27)
[2018-09-06] MEDS: methylPREDNISolone INJ 40 MG/1 ML VIAL (J2920) IV (05:52)
[2018-09-06 06:04] LABS: ABG BASE EXCESS 16.6 (-2.0-2.0); ABG HCO3 44.3 MEQ/L (22.0-26.0); ABG O2 SATURATION 97.6 % (95.0-99.0); ABG STANDARD HCO3 40.6 MEQ/L (22.0-26.0); ABG TOTAL CO2 46.4 MEQ/L (23.0-31.0)
[2018-09-06 06:06] LABS: ABG PARTIAL PRESSURE CO2 68.3 mmHg (35.0-45.0)
[2018-09-06] MEDS: TIOTROPIUM INHALER/CAPSULE (SPIRIVA) INH (08:00)
[2018-09-06] MEDS: ASPIRIN 81 MG CHEW TABLET NG (08:39)
[2018-09-06] MEDS: FUROSEMIDE 20 MG/2 ML VIAL (J1940) IV ×2 (08:40→17:10)
[2018-09-06] MEDS: POLYVINYL ALCOHOL OPHTH SOLN 15 ML(LIQUITEARS) OU ×4 (08:40→21:28)
[2018-09-06 14:58] LABS: ESTIMATED AVERAGE GLUCOSE 186 MG/DL (60-110); HEMOGLOBIN A1c 8.1 %
[2018-09-06 17:05] LABS: BEDSIDE GLUCOSE 196 MG/DL (83-110)
[2018-09-06] MEDS: HumaLOG INSULIN (NovoLOG) PER UNIT SC ×2 (17:09→21:00)
[2018-09-06] MEDS: FORMOTEROL FUMARATE 20 MCG/2 ML INHALATION SOLUTION (PERFOROMIST) INH (20:09)
[2018-09-06] MEDS: BUDESONIDE 0.5 MG/2 ML INHALATION SUSPENSION INH (20:09)
[2018-09-06] MEDS: ATORVASTATIN 20 MG TAB PO (21:00)
[2018-09-06 21:02] LABS: BEDSIDE GLUCOSE 171 MG/DL (83-110)
[2018-09-06] MEDS: cefTRIAXone SOD 1 GM in D5W MINI-BAG PLUS 50 ML IV (21:27)
[2018-09-06] MEDS: PANTOPRAZOLE 40MG INJ (PROTONIX) (C9113) IV (21:27)
[2018-09-07] MEDS: IPRATROPIUM 0.5MG/ALBUTEROL 2.5MG INH SOL UD 3ML (DUONEB)(J7620) NEB ×5 (00:01→23:11)
[2018-09-07 05:05] LABS: HEMATOCRIT 40.2 % (36.0-47.0); HEMOGLOBIN 12.1 g/dl (12.0-15.5); MEAN CORPUSCULAR HEMOGLOBIN 28.3 pg (27.0-33.0); MEAN CORPUSCULAR HGB CONC 30.1 g/dl (32.0-36.5); MEAN CORPUSCULAR VOLUME 93.9 fl (80.0-96.0); PLATELET COUNT, AUTOMATED 159 10^3/uL (150-450); RED BLOOD COUNT 4.28 10^6/uL (4.00-5.40); RED CELL DISTRIBUTION WIDTH 16.4 % (11.5-14.5); WHITE BLOOD COUNT 10.9 10^3/uL (4.0-10.0)
[2018-09-07 05:08] LABS: ANION GAP 3 MEQ/L (8-16); BLOOD UREA NITROGEN 41 MG/DL (7-18); CALCIUM LEVEL 8.4 MG/DL (8.8-10.2); CARBON DIOXIDE LEVEL 42 MEQ/L (21-32); CHLORIDE LEVEL 96 MEQ/L (98-107); CREATININE FOR GFR 0.89 MG/DL (0.55-1.30); GLOMERULAR FILTRATION RATE > 60.0 (>32); GLUCOSE, FASTING 180 MG/DL (70-100); MAGNESIUM LEVEL 2.5 MG/DL (1.8-2.4); POTASSIUM SERUM 4.4 MEQ/L (3.5-5.1); SODIUM LEVEL 141 MEQ/L (136-145)
[2018-09-07] MEDS: HEPARIN SOD (PORCINE) 5000 UNITS/ML VIAL SC ×3 (05:28→22:30)
[2018-09-07] MEDS: SLF 3 ML SYR IV ×3 (05:28→22:30)
[2018-09-07] MEDS: HumaLOG INSULIN (NovoLOG) PER UNIT SC ×4 (07:43→21:00)
[2018-09-07] MEDS: TIOTROPIUM INHALER/CAPSULE (SPIRIVA) INH (09:16)
[2018-09-07] MEDS: BUDESONIDE 0.5 MG/2 ML INHALATION SUSPENSION INH ×2 (09:16→20:07)
[2018-09-07] MEDS: FORMOTEROL FUMARATE 20 MCG/2 ML INHALATION SOLUTION (PERFOROMIST) INH ×2 (09:16→20:07)
[2018-09-07] MEDS: ASPIRIN 81 MG CHEW TABLET NG (09:43)
[2018-09-07] MEDS: POLYVINYL ALCOHOL OPHTH SOLN 15 ML(LIQUITEARS) OU ×4 (09:45→20:26)
[2018-09-07] MEDS: methylPREDNISolone INJ 40 MG/1 ML VIAL (J2920) IV (09:45)
[2018-09-07] MEDS: FUROSEMIDE 20 MG/2 ML VIAL (J1940) IV ×2 (09:45→16:51)
[2018-09-07 11:55] LABS: BEDSIDE GLUCOSE 169 MG/DL (83-110)
[2018-09-07 16:47] LABS: BEDSIDE GLUCOSE 222 MG/DL (83-110)
[2018-09-07 20:06] LABS: BEDSIDE GLUCOSE 238 MG/DL (83-110)
[2018-09-07] MEDS: ATORVASTATIN 20 MG TAB PO (20:25)
[2018-09-07] MEDS: cefTRIAXone SOD 1 GM in D5W MINI-BAG PLUS 50 ML IV (20:26)
[2018-09-07] MEDS ORDERED: PANTOPRAZOLE 40MG TAB (PROTONIX) PO (21:00)
[2018-09-08 04:17] LABS: HEMATOCRIT 41.2 % (36.0-47.0); HEMOGLOBIN 12.8 g/dl (12.0-15.5); MEAN CORPUSCULAR HEMOGLOBIN 28.8 pg (27.0-33.0); MEAN CORPUSCULAR HGB CONC 31.1 g/dl (32.0-36.5); MEAN CORPUSCULAR VOLUME 92.8 fl (80.0-96.0); PLATELET COUNT, AUTOMATED 154 10^3/uL (150-450); RED BLOOD COUNT 4.44 10^6/uL (4.00-5.40)
[2018-09-08 04:38] LABS: ANION GAP 3 MEQ/L (8-16); BLOOD UREA NITROGEN 33 MG/DL (7-18); CALCIUM LEVEL 8.2 MG/DL (8.8-10.2); CARBON DIOXIDE LEVEL 41 MEQ/L (21-32); CHLORIDE LEVEL 93 MEQ/L (98-107); CREATININE FOR GFR 0.76 MG/DL (0.55-1.30); GLOMERULAR FILTRATION RATE > 60.0 (>32); GLUCOSE, FASTING 152 MG/DL (70-100); MAGNESIUM LEVEL 2.3 MG/DL (1.8-2.4); POTASSIUM SERUM 4.1 MEQ/L (3.5-5.1); SODIUM LEVEL 137 MEQ/L (136-145)
[2018-09-08] MEDS: HEPARIN SOD (PORCINE) 5000 UNITS/ML VIAL SC ×3 (05:02→21:10)
[2018-09-08] MEDS: SLF 3 ML SYR IV ×3 (05:03→21:09)
[2018-09-08] MEDS: TIOTROPIUM INHALER/CAPSULE (SPIRIVA) INH (07:19)
[2018-09-08] MEDS: FORMOTEROL FUMARATE 20 MCG/2 ML INHALATION SOLUTION (PERFOROMIST) INH ×2 (07:20→20:24)
[2018-09-08] MEDS: BUDESONIDE 0.5 MG/2 ML INHALATION SUSPENSION INH ×2 (07:20→20:24)
[2018-09-08] MEDS: ASPIRIN 81 MG CHEW TABLET NG (08:22)
[2018-09-08] MEDS: FUROSEMIDE 20 MG/2 ML VIAL (J1940) IV ×2 (08:22→17:12)
[2018-09-08] MEDS: HumaLOG INSULIN (NovoLOG) PER UNIT SC ×4 (08:22→21:00)
[2018-09-08] MEDS: predniSONE 20 MG TAB PO (08:23)
[2018-09-08] MEDS: PANTOPRAZOLE 40MG TAB (PROTONIX) PO (08:23)
[2018-09-08] MEDS: POLYVINYL ALCOHOL OPHTH SOLN 15 ML(LIQUITEARS) OU ×4 (08:24→21:09)
[2018-09-08 12:03] LABS: BEDSIDE GLUCOSE 138 MG/DL (83-110)
[2018-09-08 16:47] LABS: BEDSIDE GLUCOSE 214 MG/DL (83-110)
[2018-09-08 21:07] LABS: BEDSIDE GLUCOSE 156 MG/DL (83-110)
[2018-09-08] MEDS: ATORVASTATIN 20 MG TAB PO (21:09)
[2018-09-09 04:34] LABS: HEMATOCRIT 41.7 % (36.0-47.0); MEAN CORPUSCULAR HEMOGLOBIN 28.7 pg (27.0-33.0); MEAN CORPUSCULAR HGB CONC 31.2 g/dl (32.0-36.5); MEAN CORPUSCULAR VOLUME 92.1 fl (80.0-96.0); PLATELET COUNT, AUTOMATED 151 10^3/uL (150-450); RED BLOOD COUNT 4.53 10^6/uL (4.00-5.40); RED CELL DISTRIBUTION WIDTH 15.9 % (11.5-14.5); WHITE BLOOD COUNT 12.2 10^3/uL (4.0-10.0)
[2018-09-09 04:52] LABS: ANION GAP 3 MEQ/L (8-16); BLOOD UREA NITROGEN 29 MG/DL (7-18); CALCIUM LEVEL 8.1 MG/DL (8.8-10.2); CARBON DIOXIDE LEVEL 40 MEQ/L (21-32); CHLORIDE LEVEL 97 MEQ/L (98-107); CREATININE FOR GFR 0.79 MG/DL (0.55-1.30); GLOMERULAR FILTRATION RATE > 60.0 (>32); GLUCOSE, FASTING 124 MG/DL (70-100); POTASSIUM SERUM 3.9 MEQ/L (3.5-5.1); SODIUM LEVEL 140 MEQ/L (136-145)
[2018-09-09] MEDS: HEPARIN SOD (PORCINE) 5000 UNITS/ML VIAL SC ×3 (06:24→20:52)
[2018-09-09] MEDS: SLF 3 ML SYR IV ×3 (06:25→20:54)
[2018-09-09] MEDS: TIOTROPIUM INHALER/CAPSULE (SPIRIVA) INH (07:53)
[2018-09-09] MEDS: FORMOTEROL FUMARATE 20 MCG/2 ML INHALATION SOLUTION (PERFOROMIST) INH ×2 (07:53→19:40)
[2018-09-09] MEDS: BUDESONIDE 0.5 MG/2 ML INHALATION SUSPENSION INH ×2 (07:53→19:40)
[2018-09-09] MEDS: FUROSEMIDE 20 MG/2 ML VIAL (J1940) IV ×2 (08:29→17:29)
[2018-09-09] MEDS: ASPIRIN 81 MG CHEW TABLET NG (08:29)
[2018-09-09] MEDS: PANTOPRAZOLE 40MG TAB (PROTONIX) PO (08:29)
[2018-09-09] MEDS: POLYVINYL ALCOHOL OPHTH SOLN 15 ML(LIQUITEARS) OU ×4 (08:30→21:00)
[2018-09-09] MEDS: HumaLOG INSULIN (NovoLOG) PER UNIT SC ×4 (08:30→20:43)
[2018-09-09] MEDS: predniSONE 20 MG TAB PO (08:30)
[2018-09-09 16:24] LABS: BEDSIDE GLUCOSE 250 MG/DL (83-110)
[2018-09-09 20:00] LABS: BEDSIDE GLUCOSE 122 MG/DL (83-110)
[2018-09-09 20:02] LABS: BEDSIDE GLUCOSE 164 MG/DL (83-110)
[2018-09-09] MEDS: ATORVASTATIN 20 MG TAB PO (20:52)
[2018-09-09] MEDS: LEVEMIR (INSULIN DETEMIR) 1 UNITS/0.01ML SC (20:53)
[2018-09-10] MEDS: HEPARIN SOD (PORCINE) 5000 UNITS/ML VIAL SC ×3 (05:32→21:27)
[2018-09-10] MEDS: SLF 3 ML SYR IV ×3 (05:32→21:28)
[2018-09-10 05:54] LABS: HEMATOCRIT 39.5 % (36.0-47.0); HEMOGLOBIN 12.3 g/dl (12.0-15.5); MEAN CORPUSCULAR HEMOGLOBIN 28.3 pg (27.0-33.0); MEAN CORPUSCULAR HGB CONC 31.1 g/dl (32.0-36.5); MEAN CORPUSCULAR VOLUME 90.8 fl (80.0-96.0); PLATELET COUNT, AUTOMATED 149 10^3/uL (150-450); RED BLOOD COUNT 4.35 10^6/uL (4.00-5.40); RED CELL DISTRIBUTION WIDTH 15.9 % (11.5-14.5); WHITE BLOOD COUNT 12.2 10^3/uL (4.0-10.0)
[2018-09-10 06:18] LABS: ANION GAP 1 MEQ/L (8-16); BLOOD UREA NITROGEN 25 MG/DL (7-18); CALCIUM LEVEL 8.5 MG/DL (8.8-10.2); CARBON DIOXIDE LEVEL 42 MEQ/L (21-32); CHLORIDE LEVEL 97 MEQ/L (98-107); CREATININE FOR GFR 0.79 MG/DL (0.55-1.30); GLOMERULAR FILTRATION RATE > 60.0 (>32); GLUCOSE, FASTING 84 MG/DL (70-100); POTASSIUM SERUM 3.7 MEQ/L (3.5-5.1); SODIUM LEVEL 140 MEQ/L (136-145)
[2018-09-10] MEDS: BUDESONIDE 0.5 MG/2 ML INHALATION SUSPENSION INH ×2 (07:09→20:57)
[2018-09-10] MEDS: FORMOTEROL FUMARATE 20 MCG/2 ML INHALATION SOLUTION (PERFOROMIST) INH ×2 (07:09→20:57)
[2018-09-10] MEDS: TIOTROPIUM INHALER/CAPSULE (SPIRIVA) INH (07:09)
[2018-09-10] MEDS: HumaLOG INSULIN (NovoLOG) PER UNIT SC ×4 (07:30→19:53)
[2018-09-10] MEDS: FUROSEMIDE 20 MG/2 ML VIAL (J1940) IV ×2 (08:34→16:28)
[2018-09-10] MEDS: predniSONE 10 MG TAB PO (08:34)
[2018-09-10] MEDS: ASPIRIN 81 MG CHEW TABLET NG (08:34)
[2018-09-10] MEDS: PANTOPRAZOLE 40MG TAB (PROTONIX) PO (08:34)
[2018-09-10] MEDS: POLYVINYL ALCOHOL OPHTH SOLN 15 ML(LIQUITEARS) OU ×4 (08:35→20:28)
[2018-09-10 12:06] LABS: BEDSIDE GLUCOSE 159 MG/DL (83-110)
[2018-09-10 16:41] LABS: BEDSIDE GLUCOSE 182 MG/DL (83-110)
[2018-09-10 19:49] LABS: BEDSIDE GLUCOSE 173 MG/DL (83-110)
[2018-09-10] MEDS: LEVEMIR (INSULIN DETEMIR) 1 UNITS/0.01ML SC (20:28)
[2018-09-10] MEDS: ATORVASTATIN 20 MG TAB PO (20:28)
[2018-09-10] MEDS: SPIRONOLACTONE 25 MG TAB PO (20:29)
[2018-09-11] MEDS: HEPARIN SOD (PORCINE) 5000 UNITS/ML VIAL SC ×3 (06:03→22:29)
[2018-09-11] MEDS: SLF 3 ML SYR IV ×3 (06:03→22:30)
[2018-09-11 06:28] LABS: HEMATOCRIT 40.9 % (36.0-47.0); HEMOGLOBIN 12.8 g/dl (12.0-15.5); MEAN CORPUSCULAR HEMOGLOBIN 28.4 pg (27.0-33.0); MEAN CORPUSCULAR HGB CONC 31.3 g/dl (32.0-36.5); MEAN CORPUSCULAR VOLUME 90.9 fl (80.0-96.0); PLATELET COUNT, AUTOMATED 151 10^3/uL (150-450); RED CELL DISTRIBUTION WIDTH 15.9 % (11.5-14.5); WHITE BLOOD COUNT 12.6 10^3/uL (4.0-10.0)
[2018-09-11 06:48] LABS: ANION GAP 3 MEQ/L (8-16); BLOOD UREA NITROGEN 24 MG/DL (7-18); CALCIUM LEVEL 8.3 MG/DL (8.8-10.2); CARBON DIOXIDE LEVEL 41 MEQ/L (21-32); CHLORIDE LEVEL 96 MEQ/L (98-107); GLOMERULAR FILTRATION RATE > 60.0 (>32); GLUCOSE, FASTING 76 MG/DL (70-100); POTASSIUM SERUM 3.6 MEQ/L (3.5-5.1); SODIUM LEVEL 140 MEQ/L (136-145)
[2018-09-11] MEDS: BUDESONIDE 0.5 MG/2 ML INHALATION SUSPENSION INH ×2 (07:38→22:11)
[2018-09-11] MEDS: FORMOTEROL FUMARATE 20 MCG/2 ML INHALATION SOLUTION (PERFOROMIST) INH ×2 (07:38→22:11)
[2018-09-11] MEDS: TIOTROPIUM INHALER/CAPSULE (SPIRIVA) INH (07:39)
[2018-09-11] MEDS: HumaLOG INSULIN (NovoLOG) PER UNIT SC ×4 (07:40→22:29)
[2018-09-11] MEDS: POLYVINYL ALCOHOL OPHTH SOLN 15 ML(LIQUITEARS) OU ×4 (08:33→22:30)
[2018-09-11] MEDS: PANTOPRAZOLE 40MG TAB (PROTONIX) PO (08:33)
[2018-09-11] MEDS: ASPIRIN 81 MG CHEW TABLET NG (08:33)
[2018-09-11] MEDS: predniSONE 10 MG TAB PO (08:34)
[2018-09-11] MEDS: SPIRONOLACTONE 25 MG TAB PO (08:34)
[2018-09-11] MEDS: FUROSEMIDE 20 MG/2 ML VIAL (J1940) IV ×2 (08:34→17:50)
[2018-09-11 11:21] LABS: BEDSIDE GLUCOSE 148 MG/DL (83-110)
[2018-09-11 16:57] LABS: BEDSIDE GLUCOSE 227 MG/DL (83-110)
[2018-09-11 21:04] LABS: BEDSIDE GLUCOSE 218 MG/DL (83-110)
[2018-09-11] MEDS: LEVEMIR (INSULIN DETEMIR) 1 UNITS/0.01ML SC (22:29)
[2018-09-11] MEDS: ATORVASTATIN 20 MG TAB PO (22:30)
[2018-09-12] MEDS: SLF 3 ML SYR IV ×3 (06:04→22:22)
[2018-09-12] MEDS: HEPARIN SOD (PORCINE) 5000 UNITS/ML VIAL SC ×3 (06:04→22:22)
[2018-09-12 06:14] LABS: HEMOGLOBIN 13.1 g/dl (12.0-15.5); MEAN CORPUSCULAR HEMOGLOBIN 28.5 pg (27.0-33.0); MEAN CORPUSCULAR HGB CONC 30.5 g/dl (32.0-36.5); MEAN CORPUSCULAR VOLUME 93.5 fl (80.0-96.0); PLATELET COUNT, AUTOMATED 157 10^3/uL (150-450); RED CELL DISTRIBUTION WIDTH 16.1 % (11.5-14.5); WHITE BLOOD COUNT 13.5 10^3/uL (4.0-10.0)
[2018-09-12 06:37] LABS: ANION GAP 0 MEQ/L (8-16); BLOOD UREA NITROGEN 23 MG/DL (7-18); CALCIUM LEVEL 8.3 MG/DL (8.8-10.2); CARBON DIOXIDE LEVEL 43 MEQ/L (21-32); CHLORIDE LEVEL 97 MEQ/L (98-107); CREATININE FOR GFR 0.91 MG/DL (0.55-1.30); GLOMERULAR FILTRATION RATE > 60.0 (>32); GLUCOSE, FASTING 84 MG/DL (70-100); POTASSIUM SERUM 4.2 MEQ/L (3.5-5.1); SODIUM LEVEL 140 MEQ/L (136-145)
[2018-09-12] MEDS: HumaLOG INSULIN (NovoLOG) PER UNIT SC ×2 (07:30→12:39)
[2018-09-12] MEDS: BUDESONIDE 0.5 MG/2 ML INHALATION SUSPENSION INH ×2 (08:41→19:17)
[2018-09-12] MEDS: TIOTROPIUM INHALER/CAPSULE (SPIRIVA) INH (08:41)
[2018-09-12] MEDS: FORMOTEROL FUMARATE 20 MCG/2 ML INHALATION SOLUTION (PERFOROMIST) INH ×2 (08:41→19:17)
[2018-09-12] MEDS: ASPIRIN 81 MG CHEW TABLET NG (10:22)
[2018-09-12] MEDS: FUROSEMIDE 20 MG/2 ML VIAL (J1940) IV (10:22)
[2018-09-12] MEDS: predniSONE 20 MG TAB PO (10:23)
[2018-09-12] MEDS: SPIRONOLACTONE 25 MG TAB PO (10:23)
[2018-09-12] MEDS: POLYVINYL ALCOHOL OPHTH SOLN 15 ML(LIQUITEARS) OU ×4 (10:23→22:22)
[2018-09-12] MEDS: PANTOPRAZOLE 40MG TAB (PROTONIX) PO (10:23)
[2018-09-12 12:00] LABS: BEDSIDE GLUCOSE 153 MG/DL (83-110)
[2018-09-12] MEDS: FUROSEMIDE 40 MG TAB PO (16:24)
[2018-09-12 16:27] LABS: BEDSIDE GLUCOSE 157 MG/DL (83-110)
[2018-09-12 21:23] LABS: BEDSIDE GLUCOSE 233 MG/DL (83-110)
[2018-09-12] MEDS: ATORVASTATIN 20 MG TAB PO (22:21)
[2018-09-12] MEDS: LEVEMIR (INSULIN DETEMIR) 1 UNITS/0.01ML SC (22:21)
[2018-09-13] MEDS: HEPARIN SOD (PORCINE) 5000 UNITS/ML VIAL SC ×3 (05:43→22:01)
[2018-09-13] MEDS: SLF 3 ML SYR IV ×3 (05:45→22:02)
[2018-09-13 05:47] LABS: HEMATOCRIT 41.2 % (36.0-47.0); HEMOGLOBIN 12.7 g/dl (12.0-15.5); MEAN CORPUSCULAR HEMOGLOBIN 28.8 pg (27.0-33.0); MEAN CORPUSCULAR HGB CONC 30.8 g/dl (32.0-36.5); MEAN CORPUSCULAR VOLUME 93.4 fl (80.0-96.0); PLATELET COUNT, AUTOMATED 155 10^3/uL (150-450); RED BLOOD COUNT 4.41 10^6/uL (4.00-5.40); RED CELL DISTRIBUTION WIDTH 16.1 % (11.5-14.5); WHITE BLOOD COUNT 12.3 10^3/uL (4.0-10.0)
[2018-09-13 06:07] LABS: ANION GAP 1 MEQ/L (8-16); BLOOD UREA NITROGEN 22 MG/DL (7-18); CALCIUM LEVEL 8.4 MG/DL (8.8-10.2); CARBON DIOXIDE LEVEL 41 MEQ/L (21-32); CHLORIDE LEVEL 98 MEQ/L (98-107); CREATININE FOR GFR 0.93 MG/DL (0.55-1.30); GLOMERULAR FILTRATION RATE > 60.0 (>32); GLUCOSE, FASTING 79 MG/DL (70-100); SODIUM LEVEL 140 MEQ/L (136-145)
[2018-09-13] MEDS: BUDESONIDE 0.5 MG/2 ML INHALATION SUSPENSION INH ×2 (06:59→19:47)
[2018-09-13] MEDS: FORMOTEROL FUMARATE 20 MCG/2 ML INHALATION SOLUTION (PERFOROMIST) INH ×2 (07:00→19:47)
[2018-09-13] MEDS: TIOTROPIUM INHALER/CAPSULE (SPIRIVA) INH (07:00)
[2018-09-13] MEDS: PANTOPRAZOLE 40MG TAB (PROTONIX) PO (10:30)
[2018-09-13] MEDS: SPIRONOLACTONE 25 MG TAB PO (10:30)
[2018-09-13] MEDS: FUROSEMIDE 40 MG TAB PO ×2 (10:30→17:37)
[2018-09-13] MEDS: predniSONE 20 MG TAB PO (10:30)
[2018-09-13] MEDS: ASPIRIN 81 MG CHEW TABLET NG (10:30)
[2018-09-13] MEDS: POLYVINYL ALCOHOL OPHTH SOLN 15 ML(LIQUITEARS) OU ×4 (10:31→22:02)
[2018-09-13 11:43] LABS: BEDSIDE GLUCOSE 118 MG/DL (83-110)
[2018-09-13 16:46] LABS: BEDSIDE GLUCOSE 205 MG/DL (83-110)
[2018-09-13 20:36] LABS: BEDSIDE GLUCOSE 277 MG/DL (83-110)
[2018-09-13] MEDS: ATORVASTATIN 20 MG TAB PO (22:01)
[2018-09-13] MEDS: LEVEMIR (INSULIN DETEMIR) 1 UNITS/0.01ML SC (22:02)
[2018-09-14] MEDS: HEPARIN SOD (PORCINE) 5000 UNITS/ML VIAL SC ×3 (05:35→21:42)
[2018-09-14] MEDS: SLF 3 ML SYR IV ×3 (05:35→21:43)
[2018-09-14 06:55] LABS: HEMATOCRIT 44.8 % (36.0-47.0); HEMOGLOBIN 14.1 g/dl (12.0-15.5); MEAN CORPUSCULAR HEMOGLOBIN 28.8 pg (27.0-33.0); MEAN CORPUSCULAR HGB CONC 31.5 g/dl (32.0-36.5); MEAN CORPUSCULAR VOLUME 91.4 fl (80.0-96.0); PLATELET COUNT, AUTOMATED 189 10^3/uL (150-450); RED CELL DISTRIBUTION WIDTH 16.3 % (11.5-14.5); WHITE BLOOD COUNT 14.1 10^3/uL (4.0-10.0)
[2018-09-14 07:22] LABS: ANION GAP 4 MEQ/L (8-16); BLOOD UREA NITROGEN 21 MG/DL (7-18); CARBON DIOXIDE LEVEL 40 MEQ/L (21-32); CHLORIDE LEVEL 98 MEQ/L (98-107); CREATININE FOR GFR 0.94 MG/DL (0.55-1.30); GLOMERULAR FILTRATION RATE > 60.0 (>32); GLUCOSE, FASTING 86 MG/DL (70-100); POTASSIUM SERUM 4.5 MEQ/L (3.5-5.1); SODIUM LEVEL 142 MEQ/L (136-145)
[2018-09-14] MEDS: TIOTROPIUM INHALER/CAPSULE (SPIRIVA) INH (07:59)
[2018-09-14] MEDS: FORMOTEROL FUMARATE 20 MCG/2 ML INHALATION SOLUTION (PERFOROMIST) INH ×2 (07:59→20:08)
[2018-09-14] MEDS: BUDESONIDE 0.5 MG/2 ML INHALATION SUSPENSION INH ×2 (07:59→20:08)
[2018-09-14] MEDS: POLYVINYL ALCOHOL OPHTH SOLN 15 ML(LIQUITEARS) OU ×4 (09:00→21:43)
[2018-09-14] MEDS: SPIRONOLACTONE 25 MG TAB PO (09:13)
[2018-09-14] MEDS: FUROSEMIDE 40 MG TAB PO ×2 (09:14→16:38)
[2018-09-14] MEDS: predniSONE 20 MG TAB PO (09:14)
[2018-09-14] MEDS: ASPIRIN 81 MG CHEW TABLET NG (09:14)
[2018-09-14] MEDS: PANTOPRAZOLE 40MG TAB (PROTONIX) PO (09:14)
[2018-09-14 11:35] LABS: BEDSIDE GLUCOSE 120 MG/DL (83-110)
[2018-09-14 16:42] LABS: BEDSIDE GLUCOSE 255 MG/DL (83-110)
[2018-09-14 20:36] LABS: BEDSIDE GLUCOSE 199 MG/DL (83-110)
[2018-09-14] MEDS: ATORVASTATIN 20 MG TAB PO (21:42)
[2018-09-14] MEDS: LEVEMIR (INSULIN DETEMIR) 1 UNITS/0.01ML SC (21:43)
[2018-09-15] MEDS: SLF 3 ML SYR IV ×3 (05:14→21:34)
[2018-09-15] MEDS: HEPARIN SOD (PORCINE) 5000 UNITS/ML VIAL SC ×3 (05:14→21:32)
[2018-09-15] MEDS: BUDESONIDE 0.5 MG/2 ML INHALATION SUSPENSION INH ×2 (07:42→20:00)
[2018-09-15] MEDS: FORMOTEROL FUMARATE 20 MCG/2 ML INHALATION SOLUTION (PERFOROMIST) INH ×2 (07:42→20:00)
[2018-09-15] MEDS: TIOTROPIUM INHALER/CAPSULE (SPIRIVA) INH (07:42)
[2018-09-15] MEDS: predniSONE 20 MG TAB PO (09:36)
[2018-09-15] MEDS: ASPIRIN 81 MG CHEW TABLET NG (09:36)
[2018-09-15] MEDS: PANTOPRAZOLE 40MG TAB (PROTONIX) PO (09:39)
[2018-09-15] MEDS: SPIRONOLACTONE 25 MG TAB PO (09:39)
[2018-09-15] MEDS: FUROSEMIDE 40 MG TAB PO ×2 (09:39→18:00)
[2018-09-15] MEDS: POLYVINYL ALCOHOL OPHTH SOLN 15 ML(LIQUITEARS) OU ×4 (09:40→21:33)
[2018-09-15 19:39] LABS: BEDSIDE GLUCOSE 202 MG/DL (83-110)
[2018-09-15] MEDS: ATORVASTATIN 20 MG TAB PO (21:31)
[2018-09-15] MEDS: LEVEMIR (INSULIN DETEMIR) 1 UNITS/0.01ML SC (21:32)
[2018-09-15] MEDS: BISACODYL 10 MG SUPP PR (21:34)
[2018-09-16] MEDS: HEPARIN SOD (PORCINE) 5000 UNITS/ML VIAL SC ×3 (05:17→21:25)
[2018-09-16] MEDS: SLF 3 ML SYR IV ×3 (05:17→21:26)
[2018-09-16] MEDS: FORMOTEROL FUMARATE 20 MCG/2 ML INHALATION SOLUTION (PERFOROMIST) INH ×2 (08:10→20:00)
[2018-09-16] MEDS: TIOTROPIUM INHALER/CAPSULE (SPIRIVA) INH (08:10)
[2018-09-16] MEDS: BUDESONIDE 0.5 MG/2 ML INHALATION SUSPENSION INH ×2 (08:11→20:00)
[2018-09-16] MEDS: PANTOPRAZOLE 40MG TAB (PROTONIX) PO (08:55)
[2018-09-16] MEDS: ASPIRIN 81 MG CHEW TABLET NG (08:55)
[2018-09-16] MEDS: SPIRONOLACTONE 25 MG TAB PO (08:55)
[2018-09-16] MEDS: predniSONE 20 MG TAB PO (08:56)
[2018-09-16] MEDS: FUROSEMIDE 40 MG TAB PO ×2 (08:56→17:38)
[2018-09-16] MEDS: POLYVINYL ALCOHOL OPHTH SOLN 15 ML(LIQUITEARS) OU ×4 (08:56→20:38)
[2018-09-16] MEDS: guaiFENesin ER 600 MG TAB PO ×2 (12:52→20:38)
[2018-09-16] MEDS: LEVEMIR (INSULIN DETEMIR) 1 UNITS/0.01ML SC (20:37)
[2018-09-16] MEDS: ATORVASTATIN 20 MG TAB PO (20:38)
[2018-09-16 21:44] LABS: BEDSIDE GLUCOSE 234 MG/DL (83-110)
[2018-09-16 21:44] LABS: BEDSIDE GLUCOSE 140 MG/DL (83-110)
[2018-09-16 21:45] LABS: BEDSIDE GLUCOSE 207 MG/DL (83-110)
[2018-09-17] MEDS: SLF 3 ML SYR IV (05:29)
[2018-09-17] MEDS: HEPARIN SOD (PORCINE) 5000 UNITS/ML VIAL SC (05:29)
[2018-09-17 06:07] LABS: BEDSIDE GLUCOSE 91 MG/DL (83-110)
[2018-09-17] MEDS: TIOTROPIUM INHALER/CAPSULE (SPIRIVA) INH (07:20)
[2018-09-17] MEDS: BUDESONIDE 0.5 MG/2 ML INHALATION SUSPENSION INH (07:20)
[2018-09-17] MEDS: FORMOTEROL FUMARATE 20 MCG/2 ML INHALATION SOLUTION (PERFOROMIST) INH (07:20)
[2018-09-17] MEDS: predniSONE 5 MG TAB PO (09:00)
[2018-09-17] MEDS: SPIRONOLACTONE 25 MG TAB PO (09:49)
[2018-09-17] MEDS: FUROSEMIDE 40 MG TAB PO (09:50)
[2018-09-17] MEDS: guaiFENesin ER 600 MG TAB PO (09:50)
[2018-09-17] MEDS: PANTOPRAZOLE 40MG TAB (PROTONIX) PO (09:51)
[2018-09-17] MEDS: ASPIRIN 81 MG CHEW TABLET NG (09:51)
[2018-09-17] MEDS: POLYVINYL ALCOHOL OPHTH SOLN 15 ML(LIQUITEARS) OU (09:52)
== END 2018-09-17 11:50 | DRG 207 ==
LOC: M MSPAV 09-09 14:00 → M ED 17:15 → M ED INP 19:14 → M ICU 20:18
PROC: 06HM33Z Insertion of Infusion Device into Right Femoral Vein, Percutaneous Approach (ICD-10-PCS; 2018-09-01)
PROC: 0BH17EZ Insertion of Endotracheal Airway into Trachea, Via Natural or Artificial Opening (ICD-10-PCS; 2018-09-01)
PROC: 5A1955Z Respiratory Ventilation, Greater than 96 Consecutive Hours (ICD-10-PCS; principal; 2018-09-02)
DX: J96.21 Acute and chronic respiratory failure with hypoxia (principal); G93.40 Encephalopathy, unspecified; I50.32 Chronic diastolic (congestive) heart failure; J44.0 Chronic obstructive pulmonary disease with (acute) lower respiratory infection; J96.22 Acute and chronic respiratory failure with hypercapnia; I11.0 Hypertensive heart disease with heart failure; E09.65 Drug or chemical induced diabetes mellitus with hyperglycemia; N28.9 Disorder of kidney and ureter, unspecified; I87.2 Venous insufficiency (chronic) (peripheral); Z66 Do not resuscitate; J20.1 Acute bronchitis due to Hemophilus influenzae; I50.812 Chronic right heart failure; Z79.899 Other long term (current) drug therapy; Z79.52 Long term (current) use of systemic steroids; Z79.82 Long term (current) use of aspirin; Z99.81 Dependence on supplemental oxygen

== ENCOUNTER 2018-12-15 15:58 | Inpatient (IN) | payer MEDICAID, MEDICARE, OTHER ==
[~2018-12-15] VITALS: Ht 160 cm; Wt 72.5 kg
[~2018-12-15 15:58] MED LIST changes: +ADVA1AER2; +ALBU83IN INH; +ASPI81TA85 PO; +ATOR1TAB21 PO; +Artificial Tears Op Drops OU; +BISA10SU PR; +BREO1INH3 INH; +BUDE0.5S6 INH; +BUME1TAB3 PO; +CARD120T3; +CARDIZEM CD; +CART120C PO; +DEXT50IN6 IV; +DIGO0.12 PO; +DUONSOL; -ETOMIDATE INJ 20MG/10ML VIAL; +FURO40TA2 PO; +GLUC1INJ21 SC; +GLUC4CHW19 PO; +INCR1INH INH; +INSUDET SC; +IPRA0.00 NEB; +LASI40TA; +MUCI600T37 PO; +PANT40TA3 PO; +PATIENT COMMENTS; +PERF20NE2 INH; +PRED10TA2 PO; +PRED20TA; +PRED5TA PO; +ROBITUSSIN; +SPIR-10 PO; +SPIR1CAP; -SUCCINYLCHOLINE 100 MG/5 ML SYRINGE (J0330); +TIOT18INH INH; +VENTAER INH
[2018-12-15] MEDS ORDERED: ALBU83IN INH (16:15)
[2018-12-15] MEDS ORDERED: PRED10TA2 PO (16:15)
[2018-12-15] MEDS ORDERED: BUME1TAB3 PO (16:15)
[2018-12-15] MEDS ORDERED: methylPREDNISolone INJ 125 MG/2 ML VIAL (J2930) IV ONE (16:30)
[2018-12-15 16:33] LABS: BASO % 0.3 % (0.0-1.0); EOS % 0.2 % (0.0-3.0); HEMATOCRIT 47.7 % (36.0-47.0); HEMOGLOBIN 14.6 g/dl (12.0-15.5); LYMPH # 0.6 10^3/uL (1.5-4.5); LYMPH % 6.4 % (24.0-44.0); MEAN CORPUSCULAR HEMOGLOBIN 28.9 pg (27.0-33.0); MEAN CORPUSCULAR HGB CONC 30.6 g/dl (32.0-36.5); MEAN CORPUSCULAR VOLUME 94.5 fl (80.0-96.0); MONO # 0.4 10^3/uL (0.0-0.8); MONO % 3.9 % (0.0-5.0); NEUTROPHILS # 8.8 10^3/uL (1.8-7.7); NEUTROPHILS % 88.6 % (36.0-66.0); PLATELET COUNT, AUTOMATED 211 10^3/uL (150-450); RED BLOOD COUNT 5.05 10^6/uL (4.00-5.40); WHITE BLOOD COUNT 9.9 10^3/uL (4.0-10.0)
[2018-12-15] MEDS: IPRATROPIUM 0.5MG/ALBUTEROL 2.5MG INH SOL UD 3ML (DUONEB)(J7620) NEB PRN ×3 (16:55→18:08)
--- NOTE | 2018-12-15 16:58 | REP ---
Chest one-view HISTORY: Dyspnea Comparison: 09/09/2018 A small area of atelectasis or infiltrate is present in the right upper lobe. The left lung is clear. The heart is normal in size. The pulmonary vasculature is normal in appearance. Impression: Right upper lobe atelectasis or infiltrate. Electronically Signed by Gregory Tran MD 12/15/2018 04:49 P
[2018-12-15 17:12] LABS: ABG BASE EXCESS 12.9 (-2.0-2.0); ABG HCO3 42.6 MEQ/L (22.0-26.0); ABG O2 SATURATION 94.9 % (95.0-99.0); ABG PARTIAL PRESSURE O2 76.8 mmHg (75.0-100.0); ABG STANDARD HCO3 36.7 MEQ/L (22.0-26.0); ABG TOTAL CO2 45.1 MEQ/L (23.0-31.0); ABG pH (ARTERIAL) 7.347 UNITS (7.350-7.450)
[2018-12-15 17:13] LABS: CALCIUM LEVEL 9.5 MG/DL (8.8-10.2); CREATININE FOR GFR 1.07 MG/DL (0.55-1.30); GLOMERULAR FILTRATION RATE 52.4 (>32); MB/CK RELATIVE INDEX 5.96 (< OR =4); POTASSIUM SERUM 4.1 MEQ/L (3.5-5.1); THYROID STIMULATING HORMONE 0.628 uIU/ML (0.358-3.740); TROPONIN I 0.05 NG/ML (< 0.10)
[2018-12-15 17:16] LABS: ABG PARTIAL PRESSURE CO2 79.5 mmHg (35.0-45.0)
[2018-12-15] MEDS ORDERED: VITATAB11 PO (18:04)
[2018-12-15] MEDS ORDERED: MUCI600T31 PO (18:04)
[2018-12-15] MEDS ORDERED: IPRA0.00 INH (18:04)
[2018-12-15] MEDS ORDERED: ARTI99.0 OU (18:04)
[2018-12-15] MEDS ORDERED: CALC600T31 PO (18:04)
[2018-12-15] MEDS ORDERED: [UNRECOGNIZED DRUG - CODE] PO (18:04)
[2018-12-15] MEDS ORDERED: TYLE325T5 PO (18:04)
[2018-12-15] MEDS ORDERED: PANT40TA3 PO (18:04)
[2018-12-15] MEDS ORDERED: ATOR40TA75 PO (18:04)
[2018-12-15 18:10] LABS: INFLUENZA A AMPLIFICATION NEGATIVE (NEGATIVE); INFLUENZA B AMPLIFICATION NEGATIVE (NEGATIVE)
--- NOTE | 2018-12-15 18:12 | REPVR ---
EXAM: CT Chest Without Contrast EXAM DATE/TIME: 12/15/2018 5:24 PM CLINICAL HISTORY: 83 years old, female; Signs and symptoms; Shortness of breath; Additional info: ? Rul infiltrate TECHNIQUE: Axial computed tomography images of the chest without intravenous contrast. All CT scans at this facility use at least one of these dose optimization techniques: automated exposure control; mA and/or kV adjustment per patient size (includes targeted exams where dose is matched to clinical indication); or iterative reconstruction. Coronal and sagittal reformatted images were created and reviewed. MIP reconstructed images were created and reviewed. COMPARISON: CR PORTABLE CHEST X-RAY 12/15/2018 4:31 PM FINDINGS: Lungs: There is a small area of interstitial and alveolar infiltrate following the right major fissure. This may represent acute pneumonic infiltrate or scarring. There is atelectasis or scarring at the left lung base. Pleural space: There is no evidence of pneumothorax. There is no evidence of pleural effusion. Heart: The heart is normal in size. There is a small amount of pericardial effusion. Aorta: There is calcification of the aorta. Lymph nodes: There is no evidence of mediastinal or hilar lymphadenopathy. Bones/joints: There is prominent kyphosis of the thoracic spine. There is a moderate compression of T5 and T6 with loss of one third of vertebral height at each level. Soft tissues: Unremarkable. Liver: There are 3 small cysts at the falciform ligament ranging in size from 5 mm to 2.5 CM. There is small cyst right lobe of the liver. IMPRESSION: 1. There is a small area of interstitial and alveolar infiltrate following the major fissure. This may be the result of pneumonia or scarring. Electronically signed by: Clinton Nugent On 12/15/2018 18:12:05 PM
[2018-12-15] MEDS ORDERED: AZITHROMYCIN INJ 500 MG, VIAL MATE ADAPTER 1 EACH in D5W 250 ML IV ONE (19:00)
[2018-12-15] MEDS ORDERED: cefTRIAXone SOD 2 GM in D5W MINI-BAG PLUS 50 ML IV ONE (19:00)
[2018-12-15] MEDS ORDERED: ACETAMINOPHEN 325 MG TAB PO PRN (20:30)
[2018-12-15] MEDS ORDERED: IPRATROPIUM 0.5MG/ALBUTEROL 2.5MG INH SOL UD 3ML (DUONEB)(J7620) NEB PRN (20:30)
[2018-12-15] MEDS ORDERED: POLYVINYL ALCOHOL OPHTH SOLN 15 ML(LIQUITEARS) OU PRN (20:30)
[2018-12-15 21:00] VITALS: BP 176/84
[2018-12-15] MEDS: ATORVASTATIN 20 MG TAB PO SCH (21:00)
[2018-12-15] MEDS: DOXYCYCLINE HYCLATE 100 MG in D5W MINI-BAG PLUS 100 ML IV SCH (22:00)
[2018-12-15] MEDS ORDERED: guaiFENesin 200 MG TAB PO PRN (22:15)
[2018-12-15 23:59] VITALS: BP 164/92
[2018-12-16] VITALS (11 sets, daily range): BP systolic 128–188; BP diastolic 66–73; O2SAT 88–96
[2018-12-16] MEDS: IPRATROPIUM 0.5MG/ALBUTEROL 2.5MG INH SOL UD 3ML (DUONEB)(J7620) NEB SCH ×4 (02:35→18:28)
[2018-12-16 05:15] LABS: HEMATOCRIT 43.8 % (36.0-47.0); HEMOGLOBIN 13.3 g/dl (12.0-15.5); MEAN CORPUSCULAR HEMOGLOBIN 28.8 pg (27.0-33.0); MEAN CORPUSCULAR HGB CONC 30.4 g/dl (32.0-36.5); MEAN CORPUSCULAR VOLUME 94.8 fl (80.0-96.0); PLATELET COUNT, AUTOMATED 189 10^3/uL (150-450); RED BLOOD COUNT 4.62 10^6/uL (4.00-5.40); WHITE BLOOD COUNT 7.3 10^3/uL (4.0-10.0)
[2018-12-16 05:39] LABS: CREATININE FOR GFR 1.05 MG/DL (0.55-1.30); GLOMERULAR FILTRATION RATE 53.5 (>32); POTASSIUM SERUM 4.3 MEQ/L (3.5-5.1)
[2018-12-16] MEDS: methylPREDNISolone INJ 125 MG/2 ML VIAL (J2930) IV SCH ×2 (06:23→17:39)
--- NOTE | 2018-12-16 07:22 | HPE ---
DATE OF ADMISSION: 12/15/2018 CHIEF COMPLAINT: Community acquired pneumonia right upper lobe. SECONDARY DIAGNOSES: 1. Exacerbation of chronic obstructive pulmonary disease (COPD) secondary to pneumonia. 2. Hypertension. 3. Hyperlipidemia. 4. Chronic respiratory failure requiring chronic supplemental oxygen and chronic steroid therapy. PRIMARY CARE PROVIDER: Dr. Onel Cisse HISTORY OF PRESENT ILLNESS: Jocelyne Silva is a patient of Dr. Cisse. She was recently seen at the office 12/09/2018 and was in actually good health and feeling well. She then was probably exposed to some viral infection which was going through the family and presented to the emergency room with right upper lobe pneumonia and acute on chronic respiratory failure. She is being admitted for further therapy. She has a history of severe COPD. She was hospitalized at [facility] 09/01/2018-09/17/2018. She had respiratory failure requiring intubation. She had hypercarbic respiratory failure and was intubated and followed by Dr. Campa of the pulmonary group (sees Dr. Leo as an outpatient). Was extubated without significant difficulty. She grew H. Influenza on her sputum. She was treated with appropriate antibiotics. PAST MEDICAL HISTORY: Significant for severe end stage COPD requiring chronic steroids and supplemental oxygen, past history of atrial fibrillation converted to sinus rhythm, cor pulmonale, hyperlipidemia, hypertension. CODE STATUS: She has DO NOT RESUSCITATE (DNR) status, but indicates that she would want a trial of intubation and mechanical ventilation as well as noninvasive ventilation if necessary (This is a change from her 09/06/2018 medical orders for life-sustaining treatment (MOLST) form and will need her MOLST form taken care of during this admission. MEDICATIONS: - prednisone 10 mg daily - Cardizem CD 120 mg daily - Bumex 2 mg daily - Lipitor 40 mg daily - Protonix 40 mg daily - Breo Ellipta 200/45 one inhalation daily - Incruse Ellipta 62.5 one inhalation daily - Spironolactone 25 mg daily - albuterol as needed - aspirin 81 mg daily - DuoNeb every 4 hours - Mucinex as needed - oxygen 2 liters nasal cannula ALLERGIES: None known. REVIEW OF SYSTEMS: No hemoptysis, epistaxis, rectal bleeding, palpitations or chest pain. FAMILY HISTORY: Father of cancer, had some tropical liver infection. Mother probably of a myocardial infarction (ME). SURGICAL HISTORY: Left carpal tunnel in 2007. SOCIAL HISTORY: Quit smoking in the last few years. Has an attentive daughter who lives with her. PHYSICAL EXAMINATION: Vital signs per ER flow sheet. General Appearance: She is alert, conversant, and having some mild labored respiration. Able to speak full sentences. Pupils equally round and react to light. Pharynx benign. Neck with no masses. Lungs: Decreased breath sounds, expiratory wheezes. Heart: Regular rhythm, tachycardic, no murmur. Abdomen: Soft. Nontender no masses. 1+ peripheral edema. No clubbing or cyanosis. Moves arms and legs with equal strength. LABS: White count 9.9, hemoglobin 14, platelets 211. Sodium 138, potassium 4.1, BUN 24, creatinine 1.0, glucose 172. Troponin is flat. BNP 757 (this is relatively low for her; it was 3800 in August). AB.37/79/76/95%. Flu screen is negative. IMPRESSION: 1. Right upper lobe pneumonia community acquired. She will be admitted to a progressive care unit (PCU) bed. She will receive Rocephin 2 grams IV daily and doxycycline 100 mg twice a day. Respiratory panel has been ordered. If it proves to be viral in etiology, the antibiotics can be discontinued. 2. COPD exacerbation secondary to pneumonia. Nebulized bronchodilators and supplemental oxygen has been ordered. 3. Hyperlipidemia. Continue atorvastatin. 4. Hypertension. Continue current antihypertensives. 5. History of paroxysmal atrial fibrillation. She is in sinus rhythm on telemetry. 6. Cor pulmonale. Continue her Spironolactone. BNP is relatively low. We can continue her Bumex 2 mg daily. Daily lab work has been ordered. 7. Change in advanced directives. Current MOLST form on 09/07/2019 does not reflect her current expressed wishes which are to be DNR, but would want intubation or trial of noninvasive ventilation is necessary.
[2018-12-16] MEDS: BUMETANIDE 1 MG TAB PO SCH (09:09)
[2018-12-16] MEDS: VITAMIN B COMPLEX/VIT C CAP PO SCH (09:09)
--- NOTE | 2018-12-16 09:09 | IPNPDOC ---
Subjective Date Seen The patient was seen on 12/16/18. Subjective Chief Complaint/HPI Denies c/o. States breathing is slowly improving. + for human metapnovirus on respiratory panel. Home oxygen use is 2LNC at baseline. Pulmonary: Reports: Dyspnea, Cough Cardiovascular: Reports: Edema (states is chronic); Denies: Chest Pain, Palpitations, Orthopnea, Paroxysmal Noc. Dyspnea, Lt Headedness Gastrointestinal: Denies: Nausea, Vomiting, Abdominal Pain, Diarrhea, Cons tipation Objective Physical Examination General Exam: Positive: Alert, No Acute Distress ENT Exam: Positive: Atraumatic, Mucous membr. moist/pink, Pharynx Normal Neck Exam: Positive: Supple; Negative: JVD, thyromegaly Chest Exam: Positive: Diminished Heart Exam: Positive: Rate Normal, Regular Rhythm, Normal S1, Normal S2; Negative: Murmurs, Rubs Telemetry: Positive: No significant arrhythmia Extremity Exam: Positive: Edema (bilateral with maria alejandra discoloration), Normal pulses Skin Exam: Positive: Nl turgor and temperature; Negative: Breakdown Assessment /Plan Problems (1) Human metapneumovirus (hMPV) pneumonia Status: Acute Problem Text: Day #2 Ceftriaxone. slowly weaning down on oxygen needs. Continue with Solumedrol 40 mg IV bid. Will order PT eval for mobility. (2) Hypertension Status: Chronic (3) End stage COPD Status: Chronic (4) Chronic steroid use Status: Chronic (5) Type 2 diabetes mellitus Status: Chronic Plan/VTE VTE Prophylaxis Ordered?: Yes (Lovenox) VS, I&O, 24H, Fishbone Vital Signs/I&O Vital Signs Date Time Temp Pulse Resp B/P (MAP) Pulse Ox O2 Delivery O2 Flow Rate FiO2 12/16/18 08:00 97.4 96 19 147/73 (97) 95 4.0 12/16/18 01:00 Nasal Cannula I&O- Last 24 Hours up to 6 AM 12/16/18 06:00 Intake Total 120 ml Balance 120 ml Laboratory Data 24H LABS Laboratory Tests 2 12/15/18 16:25: Immature Granulocyte % (Auto) 0.6, White Blood Count 9.9, Red Blood Count 5.05, Hemoglobin 14.6, Hematocrit 47.7H, Mean Corpuscular Volume 94.5, Mean Corpuscular Hemoglobin 28.9, Mean Corpuscular Hemoglobin Concent 30.6L, Red Cell Distribution Width 14.7H, Platelet Count 211, Neutrophils (%) (Auto) 88.6H, Lymphocytes (%) (Auto) 6.4L, Monocytes (%) (Auto) 3.9, Eosinophils (%) (Auto) 0.2, Basophils (%) (Auto) 0.3, Neutrophils # (Auto) 8.8H, Lymphocytes # (Auto) 0.6L, Monocytes # (Auto) 0.4, Eosinophils # (Auto) 0.0, Basophils # (Auto) 0.0, Nucleated Red Blood Cells % (auto) 0.0, Anion Gap 4L, Glomerular Filtration Rate 52.4, Lactic Acid Level 1.7, Blood Urea Nitrogen 24H, Creatinine 1.07, Sodium Level 138, Potassium Level 4.1, Chloride Level 93L, Carbon Dioxide Level 41H, Calcium Level 9.5, Total Creatine Kinase 109, Creatine Kinase MB 6.0H, Creatine Kinase MB Relative Index 5.96H, Troponin I 0.05, YS-Nwt-N-Type Natriuretic Peptide 757H, Thyroid Stimulating Hormone (TSH) 0.628 12/15/18 17:04: Blood Gas Bicarbonate Standard 36.7H, Arterial Blood pH 7.347L, Arterial Blood Partial Pressure CO2 79.5*H, Arterial Blood Partial Pressure O2 76.8, Arterial Blood Total CO2 45.1H, Arterial Blood HCO3 42.6H, Arterial Blood Base Excess 12.9H, Arterial Blood Oxygen Saturation 94.9L 12/15/18 17:24: Influenza Type A (RT-PCR) NEGATIVE, Influenza Type B (RT-PCR) NEGATIVE 12/16/18 05:01: Nucleated Red Blood Cells % (auto) 0.0, Anion Gap 0L, Glomerular Filtration Rate 53.5, Blood Urea Nitrogen 25H, Creatinine 1.05, Sodium Level 136, Potassium Level 4.3, Chloride Level 94L, Carbon Dioxide Level 42H, Calcium Level 9.0 CBC/BMP Laboratory Tests 12/15/18 16:25 Red Blood Count 5.05, Mean Corpuscular Volume 94.5, Mean Corpuscular Hemoglobin 28.9, Mean Corpuscular Hemoglobin Concent 30.6 L, Red Cell Distribution Width 14.7 H, Neutrophils (%) (Auto) 88.6 H, Lymphocytes (%) (Auto) 6.4 L, Monocytes (%) (Auto) 3.9, Eosinophils (%) (Auto) 0.2, Basophils (%) (Auto) 0.3, Neutrophils # (Auto) 8.8 H, Lymphocytes # (Auto) 0.6 L, Monocytes # (Auto) 0.4, Eosinophils # (Auto) 0.0, Basophils # (Auto) 0.0, Calcium Level 9.5, Total Creatine Kinase 109 12/16/18 05:01 Red Blood Count 4.62, Mean Corpuscular Volume 94.8, Mean Corpuscular Hemoglobin 28.8, Mean Corpuscular Hemoglobin Concent 30.4 L, Red Cell Distribution Width 14.4, Calcium Level 9.0 Microbiology Microbiology 12/15/18 Blood Culture, Received Pending 12/15/18 Blood Culture, Received Pending 12/15/18 Gram Stain - Final, Resulted 12/15/18 Sputum Culture, Resulted Pending 12/15/18 Respiratory Virus Panel (PCR) ([facility]) - Final, Complete Human Metapneumovirus Zabrina Abbott [facility] Dec 16, 2018 09:09
[2018-12-16] MEDS: SPIRONOLACTONE 25 MG TAB PO SCH (09:10)
[2018-12-16] MEDS: ASPIRIN 81 MG ENTERIC TAB PO SCH (09:10)
[2018-12-16] MEDS: PANTOPRAZOLE 40MG TAB (PROTONIX) PO SCH (09:10)
[2018-12-16] MEDS: ENOXAPARIN 40 MG/0.4 ML SYRINGE (J1650) SC SCH (09:13)
[2018-12-16] MEDS: DOXYCYCLINE HYCLATE 100 MG in D5W MINI-BAG PLUS 100 ML IV SCH ×2 (09:39→22:01)
[2018-12-16] MEDS ORDERED: SLF 3 ML SYR IV PRN (09:45)
[2018-12-16] MEDS: SLF 3 ML SYR IV SCH ×2 (14:47→22:00)
--- NOTE | 2018-12-16 15:30 | ECGEPIP ---
Stationary ECG Study [facility] - ED Test Date: 2018-12-15 Pat Name: CLAIR LR Department: Room: [place] [address] Gender: F Personal Financial Representative: JOSIAH : 1935 Requested By: Pablito Orlando Order Number: [id number] Reading MD: Pablito Becerra Measurements Intervals [place] Rate: 106 P: 63 IA: 173 QRS: -45 QRSD: 85 T: 77 QT: 329 QTc: 438 Interpretive Statements SINUS TACHYCARDIA WITH OCCASIONAL VENTRICULAR PREMATURE COMPLEXES LEFT ANTERIOR FASCICULAR BLOCK INFERIOR MYOCARDIAL INFARCTION, PROBABLY OLD POOR R WAVE PROGRESSION SIMILAR TO 09/02/18 Electronically Signed On 12-16-2018 15:29:55 EDT by Pablito Becerra
[2018-12-16] MEDS ORDERED: cefTRIAXone SOD 2 GM in D5W MINI-BAG PLUS 50 ML IV SCH (21:00)
[2018-12-16] MEDS: ATORVASTATIN 20 MG TAB PO SCH (21:23)
[2018-12-17] VITALS (32 sets, daily range): BP systolic 128–224; BP diastolic 64–110; O2SAT 88–97
[2018-12-17] MEDS: IPRATROPIUM 0.5MG/ALBUTEROL 2.5MG INH SOL UD 3ML (DUONEB)(J7620) NEB SCH ×6 (00:23→23:27)
[2018-12-17] MEDS: methylPREDNISolone INJ 125 MG/2 ML VIAL (J2930) IV SCH ×2 (05:05→17:28)
[2018-12-17] MEDS: SLF 3 ML SYR IV SCH ×3 (05:05→20:58)
[2018-12-17 05:24] LABS: HEMATOCRIT 43.1 % (36.0-47.0); HEMOGLOBIN 13.3 g/dl (12.0-15.5); MEAN CORPUSCULAR HEMOGLOBIN 29.2 pg (27.0-33.0); MEAN CORPUSCULAR HGB CONC 30.9 g/dl (32.0-36.5); MEAN CORPUSCULAR VOLUME 94.5 fl (80.0-96.0); PLATELET COUNT, AUTOMATED 199 10^3/uL (150-450); RED BLOOD COUNT 4.56 10^6/uL (4.00-5.40); WHITE BLOOD COUNT 13.6 10^3/uL (4.0-10.0)
[2018-12-17 05:43] LABS: CALCIUM LEVEL 8.7 MG/DL (8.8-10.2); CREATININE FOR GFR 1.16 MG/DL (0.55-1.30); GLOMERULAR FILTRATION RATE 47.7 (>32)
[2018-12-17] MEDS: VITAMIN B COMPLEX/VIT C CAP PO SCH (09:12)
[2018-12-17] MEDS: BUMETANIDE 1 MG TAB PO SCH (09:13)
[2018-12-17] MEDS: ASPIRIN 81 MG ENTERIC TAB PO SCH (09:13)
[2018-12-17] MEDS: PANTOPRAZOLE 40MG TAB (PROTONIX) PO SCH (09:14)
[2018-12-17] MEDS: ENOXAPARIN 40 MG/0.4 ML SYRINGE (J1650) SC SCH (09:14)
[2018-12-17] MEDS: SPIRONOLACTONE 25 MG TAB PO SCH (09:14)
[2018-12-17] MEDS: DOXYCYCLINE HYCLATE 100 MG in D5W MINI-BAG PLUS 100 ML IV SCH ×2 (09:15→21:00)
--- NOTE | 2018-12-17 10:03 | IPNPDOC ---
Subjective Date Seen The patient was seen on 12/17/18. Subjective Chief Complaint/HPI Patient lying in bed as I entered the room. Nursing staff was attempting to restart her IV. Patient reports to be feeling about the same Constitutional: Denies: Chills, Fever Pulmonary: Reports: Dyspnea, Cough Cardiovascular: Denies: Chest Pain, Palpitations, Orthopnea, Edema Gastrointestinal: Denies: Nausea, Vomiting, Abdominal Pain Psych: Reports: Mood Normal Objective Physical Examination General Exam: Positive: Alert, No Acute Distress ENT Exam: Positive: Atraumatic, Mucous membr. moist/pink, Pharynx Normal Neck Exam: Positive: Supple; Negative: JVD, thyromegaly Chest Exam: Positive: Diminished Heart Exam: Positive: Rate Normal, Regular Rhythm, Normal S1, Normal S2; Negative: Murmurs, Rubs Telemetry: Positive: No significant arrhythmia Extremity Exam: Positive: Edema (bilateral with maria alejandra discoloration), Normal pulses Skin Exam: Positive: Nl turgor and temperature; Negative: Breakdown Assessment /Plan Problems (1) Diastolic congestive heart failure Status: Chronic Problem Text: on HD bumet 2, radu 25 QD 03/2018 TTE c grade 1 kody/mild HHN/no VHD/severe PHTN-Linus (2) Pulmonary hypertension Status: Chronic Problem Text: severe, poor px (3) COPD with exacerbation Status: Acute Problem Text: D3 doxy (previous 3D also ceftriaxone-last dose 12/17)-favor viral PN Patient reports to be feeling about the same. Continue with IV solumedrol 40 mg bid. Continue with nebs as scheduled. Will add Spiriva to daily regimen. Patient remains afebriled. WBC 13.6, most likely related to steroids Day #2 Ceftriaxone. slowly weaning down on oxygen needs. Continue with Solumedrol 40 mg IV bid. Will order PT eval for mobility. (4) End stage COPD Status: Chronic Problem Text: chronically 2L NC at home (5) Human metapneumovirus (hMPV) pneumonia Status: Acute (6) Chronic steroid use Status: Chronic (7) Type 2 diabetes mellitus Status: Chronic (8) Physical deconditioning Status: Chronic Problem Text: 12/17 not safe per PT Plan/VTE VTE Prophylaxis Ordered?: Yes (Lovenox) VS, I&O, 24H, Fishbone Vital Signs/I&O Vital Signs Date Time Temp Pulse Resp B/P (MAP) Pulse Ox O2 Delivery O2 Flow Rate FiO2 12/17/18 09:13 110 138/80 12/17/18 08:00 97.9 24 88 5.0 12/17/18 06:00 Nasal Cannula 12/16/18 17:00 90 I&O- Last 24 Hours up to 6 AM 12/17/18 06:00 Intake Total 1450 ml Output Total 0 ml Balance 1450 ml Laboratory Data 24H LABS Laboratory Tests 2 12/17/18 04:55: Nucleated Red Blood Cells % (auto) 0.0, Anion Gap 5L, Glomerular Filtration Rate 47.7, Blood Urea Nitrogen 33H, Creatinine 1.16, Sodium Level 138, Potassium Level 4.0, Chloride Level 95L, Carbon Dioxide Level 38H, Calcium Level 8.7L CBC/BMP Laboratory Tests 12/17/18 04:55 Red Blood Count 4.56, Mean Corpuscular Volume 94.5, Mean Corpuscular Hemoglobin 29.2, Mean Corpuscular Hemoglobin Concent 30.9 L, Red Cell Distribution Width 14.5, Calcium Level 8.7 L Microbiology Microbiology 12/15/18 Blood Culture - Preliminary, Resulted No growth after 24 hours . All specim... 12/15/18 Blood Culture - Preliminary, Resulted 12/15/18 Gram Stain - Final, Resulted 12/15/18 Sputum Culture, Resulted Pending 12/15/18 Respiratory Virus Panel (PCR) ([facility]) - Final, Complete Human Metapneumovirus ELDA RODRIGEZ Dec 17, 2018 10:03 Baltazar Panda M.D. Dec 17, 2018 16:30
[2018-12-17] MEDS: TIOTROPIUM INHALER/CAPSULE (SPIRIVA) INH SCH (18:16)
[2018-12-17] MEDS: ATORVASTATIN 20 MG TAB PO SCH ×2 (20:58→21:00)
[2018-12-17] MEDS ORDERED: FUROSEMIDE 40 MG/4 ML VIAL (J1940) As Ordered ONE ×2 (21:35→21:36)
[2018-12-17] MEDS ORDERED: methylPREDNISolone INJ 40 MG/1 ML VIAL (J2920) As Ordered ONE (21:36)
[2018-12-17 21:42] LABS: ABG BASE EXCESS 15.7 (-2.0-2.0); ABG HCO3 51.2 MEQ/L (22.0-26.0); ABG O2 SATURATION 98.5 % (95.0-99.0); ABG PARTIAL PRESSURE O2 144.6 mmHg (75.0-100.0); ABG STANDARD HCO3 39.8 MEQ/L (22.0-26.0); ABG TOTAL CO2 55.5 MEQ/L (23.0-31.0)
[2018-12-17 21:44] LABS: ABG PARTIAL PRESSURE CO2 140.7 mmHg (35.0-45.0); ABG pH (ARTERIAL) 7.179 UNITS (7.350-7.450)
[2018-12-17] MEDS ORDERED: FUROSEMIDE 40 MG/4 ML VIAL (J1940) IV ONE (21:45)
[2018-12-17] MEDS ORDERED: ALBUTEROL SULFATE 2.5 MG/0.5 ML INH NEB SOLN NEB PRN (22:15)
[2018-12-17] MEDS ORDERED: methylPREDNISolone INJ 125 MG/2 ML VIAL (J2930) IV ONE (22:15)
--- NOTE | 2018-12-17 22:19 | REPVR ---
EXAM: XR Chest, 1 View EXAM DATE/TIME: 12/17/2018 9:49 PM CLINICAL HISTORY: 83 years old, female; Signs and symptoms; Shortness of breath; Additional info: SOB TECHNIQUE: Imaging protocol: XR of the chest, 1 view. COMPARISON: CR PORTABLE CHEST X-RAY 12/15/2018 4:31 PM FINDINGS: Lungs: Discoid atelectasis is noted in the left lung base. Pleural space: There is no evidence of pneumothorax. Heart/Mediastinum: There is mild cardiomegaly. Vasculature: There is mild prominence of the vascular markings which maybe the result of mild increased volume or mild congestive changes. The aorta is tortuous and sclerotic. Bones/joints: Osteopenia is present. There is a healed fracture of the left humerus. IMPRESSION: 1. Mild cardiomegaly. 2. Mild increased vascularity. 3. Mild left basilar atelectasis. Electronically signed by: Clinton Nugent On 12/17/2018 22:18:51 PM
[2018-12-17 23:52] LABS: ABG BASE EXCESS 12.1 (-2.0-2.0); ABG HCO3 42.6 MEQ/L (22.0-26.0); ABG O2 SATURATION 93.4 % (95.0-99.0); ABG PARTIAL PRESSURE O2 70.7 mmHg (75.0-100.0); ABG STANDARD HCO3 35.8 MEQ/L (22.0-26.0); ABG TOTAL CO2 45.3 MEQ/L (23.0-31.0); ABG pH (ARTERIAL) 7.306 UNITS (7.350-7.450)
[2018-12-17 23:53] LABS: ABG PARTIAL PRESSURE CO2 87.4 mmHg (35.0-45.0)
[2018-12-18] VITALS (15 sets, daily range): BP systolic 125–160; BP diastolic 52–94; O2SAT 93
--- NOTE | 2018-12-18 00:29 | IPNPDOC ---
Text Note Date of Service The patient was seen on 12/18/18. NOTE A rapid assessment team call was placed at 2130. I arrived to the patient's room in the progressive care unit to find that the patient had been placed on a nonrebreather mask. History obtained from nursing staff who was already in the room stated that the patient has a history of COPD, CHF and was admitted with community-acquired pneumonia. Throughout the evening patient's oxygen saturations have been decreasing. Patient had sustained O2 saturations around 70% with the lowest being 68%. Patient was placed on a nonrebreather mask and Dr. Panda, [facility] attending, was paged. The rapid assessment team was called to the bedside to evaluate the patient. An arterial blood gas, 40 mg of Lasix, 120 mg Solu-Medrol was ordered by Dr. Panda. A chest x-ray and EKG was al so ordered. At this time it was decided that the patient should be moved to the intensive care unit and be placed on BiPAP. I called Dr. Leo, battery container finishing hand/unloading checker and spoke with her on the phone. I gave her the history. She agreed that the patient was suitable for BiPAP and said she will placed the orders and contact nursing staff in the intensive care unit. Patient was transferred to the intensive care unit. Physical exam: Patient was alert to verbal stimulus and would make eye contact and shake her head yes or no to answer questions. Patient was tachycardic with no murmurs heard. Patient had very poor air movement on respiratory examination. There was slight end expiratory wheezes well. Patient had edema in her right upper extremity as well as her bilateral lower extremities. Assessment/plan: Patient was moved to the intensive care unit and was placed on BiPAP. Rapid assessment team call was finished and patient was placed in the care of the intensive care unit nursing staff with orders from Dr. Leo for BiPAP. VS,Fishbone, I+O VS, Fishbone, I+O Laboratory Tests 12/17/18 04:55 Red Blood Count 4.56, Mean Corpuscular Volume 94.5, Mean Corpuscular Hemoglobin 29.2, Mean Corpuscular Hemoglobin Concent 30.9 L, Red Cell Distribution Width 14.5, Calcium Level 8.7 L Vital Signs Date Time Temp Pulse Resp B/P (MAP) Pulse Ox O2 Delivery O2 Flow Rate FiO2 12/17/18 23:00 110 23 144/83 (103) 88 30 12/17/18 22:30 99.1 12/17/18 22:27 Non-Rebreather 12/17/18 21:00 5.0 I&O- Last 24 Hours up to 6 AM 12/18/18 06:00 Intake Total 660 ml Output Total 200 ml Balance 460 ml GME ATTESTATION GME ATTESTATION My faculty preceptor for this patient encounter was physically present during the encounter and was fully available. All aspects of the patient interview, examination, medical decision making process, and medical care plan development were reviewed and approved by the faculty preceptor. The faculty preceptor is aware and concurs with the plan as stated in the body of this note and will at test to such by his/her cosignature. DAKOTA MSITH DO Dec 18, 2018 00:29 LESLY MURPHY MD Dec 19, 2018 06:06
[2018-12-18] MEDS ORDERED: methylPREDNISolone INJ 125 MG/2 ML VIAL (J2930) IV SCH ×2 (01:00→06:00)
[2018-12-18] MEDS: IPRATROPIUM 0.5MG/ALBUTEROL 2.5MG INH SOL UD 3ML (DUONEB)(J7620) NEB SCH ×6 (02:51→23:40)
[2018-12-18 04:50] LABS: HEMATOCRIT 44.4 % (36.0-47.0); HEMOGLOBIN 13.5 g/dl (12.0-15.5); MEAN CORPUSCULAR HEMOGLOBIN 28.8 pg (27.0-33.0); MEAN CORPUSCULAR HGB CONC 30.4 g/dl (32.0-36.5); MEAN CORPUSCULAR VOLUME 94.7 fl (80.0-96.0); PLATELET COUNT, AUTOMATED 192 10^3/uL (150-450); RED BLOOD COUNT 4.69 10^6/uL (4.00-5.40); WHITE BLOOD COUNT 12.1 10^3/uL (4.0-10.0)
[2018-12-18 05:13] LABS: CALCIUM LEVEL 9.1 MG/DL (8.8-10.2); CREATININE FOR GFR 1.49 MG/DL (0.55-1.30); GLOMERULAR FILTRATION RATE 35.8 (>32); POTASSIUM SERUM 3.9 MEQ/L (3.5-5.1)
[2018-12-18] MEDS: SLF 3 ML SYR IV SCH ×3 (06:04→20:34)
[2018-12-18] MEDS: TIOTROPIUM INHALER/CAPSULE (SPIRIVA) INH SCH (07:47)
[2018-12-18] MEDS: BUDESONIDE 0.5 MG/2 ML INHALATION SUSPENSION INH SCH ×2 (08:00→20:22)
[2018-12-18] MEDS: FORMOTEROL FUMARATE 20 MCG/2 ML INHALATION SOLUTION (PERFOROMIST) INH SCH ×2 (08:00→20:22)
[2018-12-18] MEDS: ENOXAPARIN 40 MG/0.4 ML SYRINGE (J1650) SC SCH (08:55)
[2018-12-18] MEDS: BUMETANIDE 1 MG TAB PO SCH (08:55)
[2018-12-18] MEDS: PANTOPRAZOLE 40MG TAB (PROTONIX) PO SCH (08:56)
[2018-12-18] MEDS: SPIRONOLACTONE 25 MG TAB PO SCH (08:56)
[2018-12-18] MEDS: ASPIRIN 81 MG ENTERIC TAB PO SCH (08:56)
[2018-12-18] MEDS: VITAMIN B COMPLEX/VIT C CAP PO SCH (08:56)
[2018-12-18] MEDS: DOXYCYCLINE HYCLATE 100 MG in D5W MINI-BAG PLUS 100 ML IV SCH (09:52)
--- NOTE | 2018-12-18 11:33 | CCN ---
DATE: 12/18/2018 NOTE: I was asked by Dr. Panda to emergently evaluate Ms. Silva for acute on chronic hypercapnic and hypoxemic respiratory failure. HISTORY OF PRESENT ILLNESS: Ms. 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 She is on chronic prednisone though it is not for her COPD but rather at one point was used because of the beginnings of appetite decrease related to work of breathing. She had a prolonged hospitalization in August and eventually went to [facility] for rehabilitation and was discharged in early October. She reportedly did reasonably well until recently when she developed a upper respiratory infection that was found to be human metapneumovirus. There was also a question of right upper lobe infiltrate versus scar. She was initially started on doxycycline. There was also a brief period of time that she was on ceftriaxone. Last evening, her saturations began to drop and she was eventually placed on a nonrebreather mask. She appeared to have more respiratory distress and an arterial blood gas was done, which showed acute on chronic hypercapnic respiratory failure and she was transferred to the intensive care unit (ICU) for noninvasive mechanical ventilation. She did well on the NIMV overnight and is alert and awake this morning. She has a strong cough but has difficulty expectorating it. This morning, with the mask removed, she is able to speak in short word sentences, which is how she speaks in the clinic. She is also using accessory muscles, which is again what she uses as an outpatient. She sits in the tripod position, again what she was doing as an outpatient. She feels she is increased from baseline but not significantly different in her level of shortness of breath. No chest pain. No abdominal discomfort or nausea. She would like to try eating, but states that even chewing makes her short of breath and it has been that way for a period of time, so she wants any food pureed or soft. ALLERGIES: No known drug allergies. MEDICATIONS: On admission: - Tylenol 650 mg by mouth four times a day as needed - albuterol nebulization twice a day - DuoNeb twice a day - artificial tears - aspirin 81 mg by mouth daily - atorvastatin 40 mg by mouth at night - vitamin B complex one by mouth daily - bumetanide one tablet by mouth daily - calcium 600 mg by mouth daily - diltiazem 120 mg by mouth daily - Breo 200/25 one puff daily - Mucinex 600 mg by mouth twice a day - Incruse one puff daily - pantoprazole 40 mg by mouth daily - prednisone 10 mg by mouth daily - spironolactone 25 mg by mouth daily - Valerian 1000 mg by mouth as needed PAST MEDICAL HISTORY: 1. COPD, very severe with hypercapnia and hypoxemia, felt secondary to emphysema. A. Spirometry 11/28/2016 showed very severe airflow obstruction with an FEV1 of 0.47 liters (24%) and an FVC of 1.29 (49%). FEV1/FVC ratio decreased at 36%. 2. Chronic hypercapnic and hypoxemic respiratory failure. 3. History of congestive heart failure (CHF). 4. Anxiety. 5. History of atrial fibrillation. 6. History of intubation in August 2018 secondary to H influenza. 7. Hypertension. 8. Cor pulmonale. 9. Dyslipidemia. 10. High risk medication usage, chronic prednisone. 11. Status post left carpal tunnel surgery in 2007. 12. History of tobacco usage. SOCIAL HISTORY: Jocelyne lives with her daughter. She is a former smoker. FAMILY HISTORY: Her father of cancer and had a tropical liver infection. Mother of a myocardial infarction. REVIEW OF SYSTEMS: As per history of present illness. Remainder of pertinent review of systems negative, including no hemoptysis or fevers. PHYSICAL EXAMINATION: GENERAL: Jocelyne is sitting upright in bed in moderate but chronic respiratory distress with significant supraclavicular accessory muscle usage and can only speak short word sentences, again baseline for her. VITAL SIGNS: Temperature 98.1 with a maximum temperature (t-max) of 99.1, pulse 106, respiratory rate 21, blood pressure 148/63, SpO2 of 94% on a bilevel device of 16/8 with an FiO2 of 0.4. HEENT: Anicteric. Pupils equal, round, and reactive to light and accommodation. Nares are patent bilaterally. Moist mucosa. Oropharynx is clear. No lesions. Moist mucosa. NECK: Supple without jugular venous distention (JVD) in the sitting position. Without thyromegaly or masses. Trachea is midline. Hypertrophy of the supraclavicular muscles. LYMPHATICS: Without cervical or supraclavicular lymphadenopathy. CHEST: Increased AP diameter. LUNGS: Symmetric but limited excursion. Markedly diminished air entry. No wheeze or rhonchi on tidal excursion. Scattered end expiratory wheezes. Prolonged expiratory phase. Supraclavicular accessory muscle usage. No retractions. She does prefer the tripod position. CARDIOVASCULAR: Distant. Tachycradic. Regular rhythm. No murmur, rub or gallop appreciated. ABDOMEN: Positive bowel sounds, soft, nondistended. No hepatosplenomegaly or masses appreciated. EXTREMITIES: Notable for significant bilateral lower extremity edema (again similar to what is seen as an outpatient). Without clubbing, cyanosis. Palpable pedal pulses bilaterally. NEUROLOGIC: Awake, alert and oriented times three. LABORATORY DATA: CBC shows a hemoglobin of 13.5, hematocrit 44.1 platelet count 192,000. White blood cell count 12,100. Chemistries showed a sodium of 138, potassium 3.9, chloride 94, bicarbonate 41, anion gap 3, BUN 43, creatinine 1.5, glucose 209, calcium 9.1, BNP 906. Arterial blood gas from last evening was 7.18/141/145 with a measured saturation of 99% and a base excess of 15.7. A repeat about 1-1/2 hours later on bilevel of 16/6 with an FiO2 of 0.3 was 7.31/87/71 with a measured saturation of 93% and a base excess of 12.1. Yesterday's input and output were 660 in and 200 out, making her positive 460. Weight is 83 kg. I reviewed her chest x-ray, as well as report from last evening. That x-ray showed mildly enlarged cardiac silhouette with enlarged pulmonary vascular shadows. No acute infiltrates. There is evidence of hyperinflation. There are chronic changes. No consolidated regions. I reviewed her chest CT scan, as well as report from 12/15/2018. That CT showed an enlarged cardiac silhouette, as well as enlarged pulmonary vascular shadows. No mediastinal or hilar adenopathy. There is bilateral diffuse emphysematous changes. There are scattered regions of scar and a small region of opacity in the right upper lobe. IMPRESSION: 1. Acute on chronic hypercapnic and hypoxemic respiratory failure. The acute portion is secondary to a viral infection in the setting of underlying chronic obstructive pulmonary disease (COPD) that is very severe and predominantly secondary to emphysema. 2. Human metapneumovirus positive. 3. Chronic obstructive pulmonary disease (COPD), very severe with an FEV1 of 24% over 1 year ago. 4. Chronic hypercapnic and hypoxemic respiratory failure. 5. Cor pulmonale. 6. History of congestive heart failure (CHF). 7. History of atrial fibrillation. 8. High risk medication usage with chronic prednisone. This was not started for lung purposes but rather secondary to appetite suppression. RECOMMENDATIONS: 1. Recommend continuing bilevel therapy with naps and nocturnally, likely during her hospital stay given her current viral illness. 2. I will ask respiratory to see if they can assist with her cough, though it is going to be difficult for her given her end stage lung disease. 3. We will continue her current medications. She may benefit from nebulized long-acting bronchodilator and inhaled corticosteroid, which she has tried in the past. I also would keep her on the LAMA, although I am not certain how well she can take that. 4. Continue on bronchodilators. 5. Continue on systemic corticosteroids, but would decrease the dosage to 40 mg IV every 8 hours and more rapidly decrease her dosage as this is not likely to significantly alter processes. I am not certain how much of this is an exacerbation. She is not breathing any differently than she does as an outpatient. 6. Jocelyne had previously been a do not resuscitate and do not intubate and she understands that she had been on an external ventilator last night and does not want to be intubated. Her Medical Orders for Life Sustaining Treatment (MOLST) form was updated to reflect that she is a DO NOT RESUSCITATE, DO NOT INTUBATE. Critical care time was 35 minutes, not including procedure time. ADEEL
--- NOTE | 2018-12-18 11:58 | IPNPDOC ---
Subjective Date Seen The patient was seen on 12/18/18. Subjective Chief Complaint/HPI Patient sleeping in bed when I entered the room this morning. RAT called to floor yesterday night around 2300. Patient was transferred to ICU. She is currently on BiPAP. Per nursing patient has been doing well. O2 94%. Pulmonary following along . Constitutional: Denies: Chills, Fever Pulmonary: Reports: Dyspnea; Denies: Cough, Pleuritic Chest Pain Cardiovascular: Denies: Chest Pain, Palpitations, Orthopnea, Edema Gastrointestinal: Denies: Nausea, Vomiting Psych: Reports: Mood Normal Objective Physical Examination General Exam: Positive: Alert, No Acute Distress ENT Exam: Positive: Atraumatic, Mucous membr. moist/pink, Pharynx Normal Neck Exam: Positive: Supple; Negative: JVD, thyromegaly Chest Exam: Positive: Diminished Heart Exam: Positive: Rate Normal, Regular Rhythm, Normal S1, Normal S2; Negative: Murmurs, Rubs Telemetry: Positive: No significant arrhythmia, Other Telemetry: (PEr nursing, patient with short periods of a-fib converts back to NSR) Extremity Exam: Positive: Edema (bilateral with maria alejandra discoloration), Normal pulses Skin Exam: Positive: Nl turgor and temperature; Negative: Breakdown Assessment /Plan Assessment 12/18 -- Agree with note as above. Discussed with Dr. Leo. Changed antibiotics to Levaquin secondary to moderate growth of Pseudomonas. -- CDT Problems (1) COPD with exacerbation Status: Acute Problem Text: 12/18/18: D#4 of Doxycyline. Patient in ICU. Pulmonary following. D3 doxy (previous 3D also ceftriaxone-last dose 12/17)-favor viral PN Patient reports to be feeling about the same. Continue with IV solumedrol 40 mg bid. Continue with nebs as scheduled. Will add Spiriva to daily regimen. Patient remains afebriled. WBC 13.6, most likely related to steroids Day #2 Ceftriaxone. slowly weaning down on oxygen needs. Continue with Solumedrol 40 mg IV bid. Will order PT eval for mobility. (2) Diastolic congestive heart failure Status: Chronic Problem Text: 12/18/18: Patient received a dose of Lasix last night. Remains on Bumex 2 mg daily, Geovanni 25mg q day. She appeared well compensated on exam this morning on HD bumet 2, geovanni 25 QD 03/2018 TTE c grade 1 kody/mild HHN/no VHD/severe PHTN-Linus (3) Pulmonary hypertension Status: Chronic Problem Text: severe, poor px (4) End stage COPD Status: Chronic Problem Text: chronically 2L NC at home (5) Human metapneumovirus (hMPV) pneumonia Status: Acute (6) Chronic steroid use Status: Chronic (7) Type 2 diabetes mellitus Status: Chronic Problem Text: 12/18/18: BG 174 (8) Physical deconditioning Status: Chronic Problem Text: 12/17 not safe per PT Plan/VTE VTE Prophylaxis Ordered?: Yes (Lovenox) VS, I&O, 24H, Fishbone Vital Signs/I&O Vital Signs Date Time Temp Pulse Resp B/P (MAP) Pulse Ox O2 Delivery O2 Flow Rate FiO2 12/18/18 04:00 98.1 100 21 126/94 (105) 94 35 12/18/18 02:51 BIPAP/CPAP 12/17/18 21:00 5.0 I&O- Last 24 Hours up to 6 AM 12/18/18 06:00 Intake Total 660 ml Output Total 1000 ml Balance -340 ml Laboratory Data 24H LABS Laboratory Tests 2 12/17/18 21:33: Bedside Glucose (Misc Panel) 174H 12/17/18 21:34: Blood Gas Bicarbonate Standard 39.8H, Arterial Blood pH 7.179*L, Arterial Blood Partial Pressure CO2 140.7*H, Arterial Blood Partial Pressure O2 144.6H, Arterial Blood Total CO2 55.5H, Arterial Blood HCO3 51.2H, Arterial Blood Base E xcess 15.7H, Arterial Blood Oxygen Saturation 98.5 12/17/18 23:45: Blood Gas Bicarbonate Standard 35.8H, Arterial Blood pH 7.306L, Arterial Blood Partial Pressure CO2 87.4*H, Arterial Blood Partial Pressure O2 70.7L, Arterial Blood Total CO2 45.3H, Arterial Blood HCO3 42.6H, Arterial Blood Base Excess 12.1H, Arterial Blood Oxygen Saturation 93.4L 12/18/18 04:20: Nucleated Red Blood Cells % (auto) 0.0, Anion Gap 3L, Glomerular Filtration Rate 35.8, Blood Urea Nitrogen 43H, Creatinine 1.49H, Sodium Level 138, Potassium Level 3.9, Chloride Level 94L, Carbon Dioxide Level 41H, Calcium Level 9.1, BR-Npc-E-Type Natriuretic Peptide 906H CBC/BMP Laboratory Tests 12/18/18 04:20 Red Blood Count 4.69, Mean Corpuscular Volume 94.7, Mean Corpuscular Hemoglobin 28.8, Mean Corpuscular Hemoglobin Concent 30.4 L, Red Cell Distribution Width 14.4, Calcium Level 9.1 Microbiology Microbiology 12/15/18 Blood Culture - Preliminary, Resulted No Growth after 48 hours. All Specime... 12/15/18 Blood Culture - Preliminary, Resulted 12/15/18 Gram Stain - Final, Resulted 12/15/18 Sputum Culture, Resulted Pending 12/15/18 Respiratory Virus Panel (PCR) ([facility]) - Final, Complete Human Metapneumovirus ELDA RODRIGEZ Dec 18, 2018 07:17 JEEVAN COTTON DO Dec 18, 2018 22:53
[2018-12-18] MEDS: methylPREDNISolone INJ 125 MG/2 ML VIAL (J2930) IV SCH ×2 (15:04→20:34)
[2018-12-18] MEDS: LevoFLOXacin 750 MG TABLET PO SCH (18:27)
[2018-12-18] MEDS: ATORVASTATIN 20 MG TAB PO SCH (20:34)
[2018-12-19] VITALS (17 sets, daily range): BP systolic 133–192; BP diastolic 63–118; O2SAT 91–97
--- NOTE | 2018-12-19 00:55 | ECGEPIP ---
Stationary ECG Study 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
[2018-12-19] MEDS: IPRATROPIUM 0.5MG/ALBUTEROL 2.5MG INH SOL UD 3ML (DUONEB)(J7620) NEB SCH ×5 (04:01→19:24)
[2018-12-19 05:07] LABS: HEMATOCRIT 42.7 % (36.0-47.0); MEAN CORPUSCULAR HEMOGLOBIN 28.8 pg (27.0-33.0); MEAN CORPUSCULAR HGB CONC 30.4 g/dl (32.0-36.5); MEAN CORPUSCULAR VOLUME 94.7 fl (80.0-96.0); PLATELET COUNT, AUTOMATED 169 10^3/uL (150-450); RED BLOOD COUNT 4.51 10^6/uL (4.00-5.40); WHITE BLOOD COUNT 12.9 10^3/uL (4.0-10.0)
[2018-12-19 05:22] LABS: CREATININE FOR GFR 1.09 MG/DL (0.55-1.30); GLOMERULAR FILTRATION RATE 51.3 (>32); POTASSIUM SERUM 4.1 MEQ/L (3.5-5.1)
[2018-12-19] MEDS: SLF 3 ML SYR IV SCH ×3 (06:00→21:22)
[2018-12-19] MEDS: methylPREDNISolone INJ 125 MG/2 ML VIAL (J2930) IV SCH (06:00)
[2018-12-19] MEDS: TIOTROPIUM INHALER/CAPSULE (SPIRIVA) INH SCH (08:00)
[2018-12-19] MEDS: VITAMIN B COMPLEX/VIT C CAP PO SCH (08:28)
[2018-12-19] MEDS: ASPIRIN 81 MG ENTERIC TAB PO SCH (08:29)
[2018-12-19] MEDS: PANTOPRAZOLE 40MG TAB (PROTONIX) PO SCH (08:29)
[2018-12-19] MEDS: ENOXAPARIN 40 MG/0.4 ML SYRINGE (J1650) SC SCH (08:29)
[2018-12-19] MEDS: SPIRONOLACTONE 25 MG TAB PO SCH (08:29)
[2018-12-19] MEDS: FORMOTEROL FUMARATE 20 MCG/2 ML INHALATION SOLUTION (PERFOROMIST) INH SCH ×2 (09:09→19:24)
[2018-12-19] MEDS: BUDESONIDE 0.5 MG/2 ML INHALATION SUSPENSION INH SCH ×2 (09:09→19:24)
[2018-12-19] MEDS: BUMETANIDE 1 MG TAB PO SCH (12:38)
--- NOTE | 2018-12-19 14:48 | IPNPDOC ---
Subjective Date Seen The patient was seen on 12/19/18. Subjective Chief Complaint/HPI Patient reports to be feeling about the same. She is alert and pleasant. No acute events overnight Constitutional: Denies: Chills, Fever Pulmonary: Reports: Dyspnea, Cough; Denies: Pleuritic Chest Pain Cardiovascular: Denies: Chest Pain, Orthopnea, Edema Gastrointestinal: Denies: Nausea, Vomiting, Abdominal Pain Psych: Reports: Mood Normal Objective Physical Examination General Exam: Positive: Alert, No Acute Distress ENT Exam: Positive: Atraumatic, Mucous membr. moist/pink, Pharynx Normal Neck Exam: Positive: Supple; Negative: JVD, thyromegaly Chest Exam: Positive: Diminished, Other (on NC this morning. BiPAP overnight ); Negative: Rales Heart Exam: Positive: Rate Normal, Regular Rhythm, Normal S1, Normal S2; Negative: Murmurs, Rubs Telemetry: Positive: No significant arrhythmia Extremity Exam: Positive: Edema (trace), Normal pulses Skin Exam: Positive: Nl turgor and temperature; Negative: Breakdown Assessment /Plan Problems (1) Atrial fibrillation Status: Acute Problem Text: 12/19 new onset AF RVR-on HC dilt CD 120 QD, increased to BID given RVR to 120- 130 QHS, + apix and check TTE 12/15 TSH 0.6 (2) COPD with exacerbation Status: Acute Problem Text: D1 levo 750 IV q48H (prior to this D4 doxy) 12/15 BCX1/2 Acinetobacter sp 12/15 SCX heavy P. aeruginosa . (3) Diastolic congestive heart failure Status: Chronic Problem Text: Patient appears well compensated on HD bumet 2, radu 25 QD 03/2018 TTE c grade 1 kody/mild HHN/no VHD/severe PHTN-Linus (4) Pulmonary hypertension Status: Chronic Problem Text: severe, poor px (5) End stage COPD Status: Chronic Problem Text: chronically 2L NC at home (6) Human metapneumovirus (hMPV) pneumonia Status: Acute (7) Chronic steroid use Status: Chronic (8) Type 2 diabetes mellitus Status: Chronic Problem Text: 12/19/18: BG 167 12/18/18: BG 174 (9) Physical deconditioning Status: Chronic Problem Text: 12/17 not safe per PT Plan/VTE VTE Prophylaxis Ordered?: Yes (Lovenox) VS, I&O, 24H, Fishbone Vital Signs/I&O Vital Signs Date Time Temp Pulse Resp B/P (MAP) Pulse Ox O2 Delivery O2 Flow Rate FiO2 12/19/18 04:01 97 BIPAP/CPAP 3.0 12/19/18 04:00 35 12/19/18 04:00 97.3 93 20 143/70 (94) I&O- Last 24 Hours up to 6 AM 12/19/18 06:00 Intake Total 1120 ml Output Total 1760 ml Balance -640 ml Laboratory Data 24H LABS Laboratory Tests 2 12/19/18 04:33: Nucleated Red Blood Cells % (auto) 0.0, Anion Gap 4L, Glomerular Filtration Rate 51.3, Blood Urea Nitrogen 39H, Creatinine 1.09, Sodium Level 140, Potassium Level 4.1, Chloride Level 95L, Carbon Dioxide Level 41H, Calcium Level 9.0 CBC/BMP Laboratory Tests 12/19/18 04:33 Red Blood Count 4.51, Mean Corpuscular Volume 94.7, Mean Corpuscular Hemoglobin 28.8, Mean Corpuscular Hemoglobin Concent 30.4 L, Red Cell Distribution Width 14.7 H, Calcium Level 9.0 Microbiology Microbiology 12/15/18 Blood Culture - Preliminary, Resulted No Growth after 72 hours. All specime... 12/15/18 Blood Culture - Preliminary, Resulted 12/15/18 Gram Stain - Final, Complete 12/15/18 Sputum Culture - Final, Complete Pseudomonas Aeruginosa 12/15/18 Respiratory Virus Panel (PCR) ([facility]) - Final, Complete Human Metapneumovirus ELDA RODRIGEZ Dec 19, 2018 06:51 Baltazar Panda M.D. Dec 19, 2018 14:48
[2018-12-19] MEDS: methylPREDNISolone INJ 40 MG/1 ML VIAL (J2920) IV SCH (18:44)
[2018-12-19] MEDS: ATORVASTATIN 20 MG TAB PO SCH (21:21)
[2018-12-19] MEDS: APIXABAN 5 MG TAB (ELIQUIS) PO SCH (21:22)
[2018-12-20] VITALS (19 sets, daily range): BP systolic 117–160; BP diastolic 62–121; O2SAT 92–98
[2018-12-20] MEDS: IPRATROPIUM 0.5MG/ALBUTEROL 2.5MG INH SOL UD 3ML (DUONEB)(J7620) NEB SCH ×6 (02:51→20:00)
[2018-12-20 04:42] LABS: HEMATOCRIT 43.7 % (36.0-47.0); HEMOGLOBIN 13.3 g/dl (12.0-15.5); MEAN CORPUSCULAR HEMOGLOBIN 28.7 pg (27.0-33.0); MEAN CORPUSCULAR HGB CONC 30.4 g/dl (32.0-36.5); MEAN CORPUSCULAR VOLUME 94.4 fl (80.0-96.0); PLATELET COUNT, AUTOMATED 170 10^3/uL (150-450); RED BLOOD COUNT 4.63 10^6/uL (4.00-5.40); WHITE BLOOD COUNT 8.9 10^3/uL (4.0-10.0)
[2018-12-20 05:15] LABS: CALCIUM LEVEL 9.5 MG/DL (8.8-10.2); CREATININE FOR GFR 1.05 MG/DL (0.55-1.30); GLOMERULAR FILTRATION RATE 53.5 (>32)
[2018-12-20] MEDS: methylPREDNISolone INJ 40 MG/1 ML VIAL (J2920) IV SCH ×2 (06:14→17:32)
[2018-12-20] MEDS: SLF 3 ML SYR IV SCH ×3 (06:15→20:54)
--- NOTE | 2018-12-20 07:28 | IPNPDOC ---
Subjective Date Seen The patient was seen on 12/20/18. Subjective Chief Complaint/HPI Patient lying in bed reading a book as I entered the room. She reports to be feeling at her baseline. Constitutional: Denies: Chills, Fever Pulmonary: Reports: Dyspnea, Cough; Denies: Pleuritic Chest Pain Cardiovascular: Denies: Chest Pain, Palpitations, Orthopnea, Edema Gastrointestinal: Denies: Nausea, Vomiting, Abdominal Pain Psych: Reports: Mood Normal Objective Physical Examination General Exam: Positive: Alert, No Acute Distress ENT Exam: Positive: Atraumatic, Mucous membr. moist/pink, Pharynx Normal Neck Exam: Positive: Supple; Negative: JVD, thyromegaly Chest Exam: Positive: Diminished; Negative: Rales, Rhonchi, Wheezing Heart Exam: Positive: Rate Normal, Regular Rhythm, Normal S1, Normal S2; Negative: Murmurs, Rubs Telemetry: Positive: No significant arrhythmia Extremity Exam: Positive: Normal pulses; Negative: Edema Skin Exam: Positive: Nl turgor and temperature; Negative: Breakdown Psych Exam: Positive: Mood NL Assessment /Plan Problems (1) Atrial fibrillation Status: Acute Problem Text: 12/20/18: Patient in NSR, regular rate - she seems to have converted on the increased dose of diltiazem. ECHO ordered yesterday and still pending. Pulmonary reports that she has a h/o PAF. This seems to be a new dx to our service, but they report that they have it documented in the past. 12/19 new onset AF RVR-on HC dilt CD 120 QD, increased to BID given RVR to 120- 130 QHS, + apix and check TTE 12/15 TSH 0.6 (2) COPD with exacerbation Status: Acute Problem Text: 12/20/18: Patient reports to be feeling at her baseline. She re scarlet on 5L NC, only on 2L bleed in when on pressure support, Levaquin 750mg q 48hs D1 levo 750 IV q48H (prior to this D4 doxy) 12/15 BCX1/2 Acinetobacter sp 12/15 SCX heavy P. aeruginosa . (3) Diastolic congestive heart failure Status: Chronic Problem Text: 12/20/18: Patient appears well compensated on exam this morning Patient appears well compensated on HD bumet 2, radu 25 QD 03/2018 TTE c grade 1 kody/mild HHN/no VHD/severe PHTN-Linus (4) Pulmonary hypertension Status: Chronic Problem Text: severe, poor px (5) End stage COPD Status: Chronic Problem Text: chronically 2L NC at home (6) Human metapneumovirus (hMPV) pneumonia Status: Acute Response to Treatment: Improving (7) Chronic steroid use Status: Chronic (8) Type 2 diabetes mellitus Status: Chronic Problem Text: 12/19/18: BG 167 12/18/18: BG 174 (9) Physical deconditioning Status: Chronic Problem Text: 12/17 not safe per PT Plan/VTE VTE Prophylaxis Ordered?: Yes (Lovenox) Plan Family Medicine Attending Note: I saw and examined Ms. Silva, discussed with Elda Rodrigez DNP. Agree with her note as documented. She is end-stage COPD and has a very poor prognosis. I discussed this with her today; we have had this discussion in the past. She understands, but chooses to keep a positive mental attitude. Her goal is to if possible return to a level of both physical and respiratory function were she can return home. 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) VS, I&O, 24H, Fishbone Vital Signs/I&O Vital Signs Date Time Temp Pulse Resp B/P (MAP) Pulse Ox O2 Delivery O2 Flow Rate FiO2 12/20/18 06:00 79 22 160/74 (102) 95 5.0 12/20/18 04:00 97.4 12/20/18 04:00 BIPAP/CPAP 12/19/18 04:00 35 I&O- Last 24 Hours up to 6 AM 12/20/18 06:00 Intake Total 1090 ml Output Total 1825 ml Balance -735 ml Laboratory Data 24H LABS Laboratory Tests 2 12/20/18 04:13: Nucleated Red Blood Cells % (auto) 0.0, Anion Gap 0L, Glomerular Filtration Rate 53.5, Blood Urea Nitrogen 45H, Creatinine 1.05, Sodium Level 141, Potassium Level 4.0, Chloride Level 96L, Carbon Dioxide Level 45H, Calcium Level 9.5 CBC/BMP Laboratory Tests 12/20/18 04:13 Red Blood Count 4.63, Mean Corpuscular Volume 94.4, Mean Corpuscular Hemoglobin 28.7, Mean Corpuscular Hemoglobin Concent 30.4 L, Red Cell Distribution Width 14.7 H, Calcium Level 9.5 Microbiology Microbiology 12/15/18 Blood Culture - Preliminary, Resulted No Growth after 72 hours. All specime... 12/15/18 Blood Culture - Preliminary, Resulted Acinetobacter Species 12/15/18 Gram Stain - Final, Complete 12/15/18 Sputum Culture - Final, Complete Pseudomonas Aeruginosa 12/15/18 Respiratory Virus Panel (PCR) ([facility]) - Final, Complete Human Metapneumovirus ELDA RODRIGEZ Dec 20, 2018 7:28 am Ian Grace MD Dec 20, 2018 8:07 pm
[2018-12-20] MEDS: FORMOTEROL FUMARATE 20 MCG/2 ML INHALATION SOLUTION (PERFOROMIST) INH SCH ×2 (07:48→20:40)
[2018-12-20] MEDS: BUDESONIDE 0.5 MG/2 ML INHALATION SUSPENSION INH SCH ×2 (07:48→20:40)
[2018-12-20] MEDS: TIOTROPIUM INHALER/CAPSULE (SPIRIVA) INH SCH (07:48)
[2018-12-20] MEDS: BUMETANIDE 1 MG TAB PO SCH (08:38)
[2018-12-20] MEDS: ASPIRIN 81 MG ENTERIC TAB PO SCH (08:39)
[2018-12-20] MEDS: SPIRONOLACTONE 25 MG TAB PO SCH (08:39)
[2018-12-20] MEDS: VITAMIN B COMPLEX/VIT C CAP PO SCH (08:39)
[2018-12-20] MEDS: PANTOPRAZOLE 40MG TAB (PROTONIX) PO SCH (08:39)
[2018-12-20] MEDS: APIXABAN 5 MG TAB (ELIQUIS) PO SCH ×2 (08:39→20:51)
[2018-12-20] MEDS: LevoFLOXacin 750 MG TABLET PO SCH (17:32)
[2018-12-20] MEDS: ATORVASTATIN 20 MG TAB PO SCH (20:52)
[2018-12-21] VITALS (13 sets, daily range): BP systolic 124–183; BP diastolic 57–82; O2SAT 89–98
[2018-12-21] MEDS: IPRATROPIUM 0.5MG/ALBUTEROL 2.5MG INH SOL UD 3ML (DUONEB)(J7620) NEB SCH ×6 (00:06→21:42)
[2018-12-21 04:37] LABS: HEMATOCRIT 43.7 % (36.0-47.0); HEMOGLOBIN 13.3 g/dl (12.0-15.5); MEAN CORPUSCULAR HEMOGLOBIN 28.5 pg (27.0-33.0); MEAN CORPUSCULAR HGB CONC 30.4 g/dl (32.0-36.5); MEAN CORPUSCULAR VOLUME 93.8 fl (80.0-96.0); PLATELET COUNT, AUTOMATED 168 10^3/uL (150-450); RED BLOOD COUNT 4.66 10^6/uL (4.00-5.40); WHITE BLOOD COUNT 8.1 10^3/uL (4.0-10.0)
[2018-12-21 05:18] LABS: CALCIUM LEVEL 9.3 MG/DL (8.8-10.2); CREATININE FOR GFR 1.08 MG/DL (0.55-1.30); GLOMERULAR FILTRATION RATE 51.8 (>32)
[2018-12-21] MEDS: SLF 3 ML SYR IV SCH ×3 (06:07→20:09)
[2018-12-21] MEDS: methylPREDNISolone INJ 40 MG/1 ML VIAL (J2920) IV SCH ×2 (06:07→18:12)
[2018-12-21] MEDS: BUDESONIDE 0.5 MG/2 ML INHALATION SUSPENSION INH SCH ×2 (07:21→21:42)
[2018-12-21] MEDS: FORMOTEROL FUMARATE 20 MCG/2 ML INHALATION SOLUTION (PERFOROMIST) INH SCH ×2 (07:21→21:42)
[2018-12-21] MEDS: TIOTROPIUM INHALER/CAPSULE (SPIRIVA) INH SCH (07:22)
[2018-12-21 08:46] LABS: ABG BASE EXCESS 20.3 (-2.0-2.0); ABG HCO3 50.7 MEQ/L (22.0-26.0); ABG O2 SATURATION 87.1 % (95.0-99.0); ABG PARTIAL PRESSURE O2 52.4 mmHg (75.0-100.0); ABG STANDARD HCO3 44.6 MEQ/L (22.0-26.0); ABG TOTAL CO2 53.3 MEQ/L (23.0-31.0); ABG pH (ARTERIAL) 7.393 UNITS (7.350-7.450)
[2018-12-21 09:08] LABS: ABG PARTIAL PRESSURE CO2 85.1 mmHg (35.0-45.0)
[2018-12-21] MEDS: VITAMIN B COMPLEX/VIT C CAP PO SCH (09:48)
[2018-12-21] MEDS: SPIRONOLACTONE 25 MG TAB PO SCH (09:48)
[2018-12-21] MEDS: BUMETANIDE 1 MG TAB PO SCH (09:48)
[2018-12-21] MEDS: PANTOPRAZOLE 40MG TAB (PROTONIX) PO SCH (09:49)
[2018-12-21] MEDS: APIXABAN 5 MG TAB (ELIQUIS) PO SCH ×2 (09:49→20:07)
[2018-12-21] MEDS: ASPIRIN 81 MG ENTERIC TAB PO SCH (09:49)
--- NOTE | 2018-12-21 13:32 | ECHO ---
DATE OF PROCEDURE: 12/20/2018 REFER ING PROVIDER: Dr. Jaime Mccormick PATIENT LOCATION: Room 3205. REASON FOR ECHOCARDIOGRAM: Arrhythmia. 2D MEASUREMENTS: IVS: 1.1 cm LV: 4.2 cm LVPW: 1.1 cm LA: 3.3 cm Aorta: 3.4 cm IVC: 2.2 cm DOPPLER MEASUREMENTS: Peak velocity across the aortic valve: 1.7 m/s Peak velocity across the LVOT: 0.71 m/s Mitral E: 0.78 Mitral A: 0.8 Ratio 1.0 Tricuspid valve velocity: 2.7 ms/s 2D COMMENTS: 1. Normal left ventricular size, wall thickness, and normal left global ventricular function. The estimated global left ventricular systolic ejection fraction is 60-65%. 2. Normal left atrium. Normal right atrium and right ventricle. 3. The atrial septum appeared to be normal without evidence of defect or shunt. 4. Normal aortic root. 5. No pericardial effusion seen. 6. Mildly calcified aortic valve. Leaflet excursion appeared to be normal. Mildly calcified mitral annulus with normal mitral valve and leaflet motion. Normal tricuspid valve. The pulmonic valve and proximal pulmonary artery branches were not well visualized. 7. The inferior vena cava was mildly enlarged. Central venous pressure might be indicated. DOPPLER: It detects mild tricuspid regurgitation. The calculated pulmonary artery systolic pressure is 30-40 mmHg. Abnormal relaxation pattern was noted across the mitral valve leaflets as well as the mitral valve annulus consistent with some features of grade 1 left ventricular diastolic dysfunction. IMPRESSION: 1. Normal global left ventricular systolic function. There are features of left ventricular diastolic dysfunction manifested by abnormal relaxation, grade 1. 2. Aortic valve sclerosis with stenosis but no aortic regurgitation. 3. Mitral annulus calcification. No evidence of mitral stenosis or mitral regurgitation. 4. Mild tricuspid regurgitation with mild pulmonary hypertension. 5. The inferior vena cava was mildly enlarged, central venous pressure might be indicated. MTDD
--- NOTE | 2018-12-21 16:47 | IPNPDOC ---
Subjective Date Seen The patient was seen on 12/21/18. Subjective Chief Complaint/HPI No acute events overnight. Patient unsure if she is feeling better today, doesn't know if she is any more or less short of breath and is mildly dyspneic with casual conversation on 2L nasal cannula. Denies any pain. Objective Physical Examination General Exam: Positive: Alert, No Acute Distress ENT Exam: Positive: Atraumatic, Mucous membr. moist/pink, Pharynx Normal Neck Exam: Positive: Supple; Negative: JVD, thyromegaly Chest Exam: Positive: Clear to auscultation, Normal air movement (Accessory muscle use, increased work of breathing.), Rhonchi, Diminished; Negative: Rales, Wheezing Heart Exam: Positive: Rate Normal, Regular Rhythm, Normal S1, Normal S2; Negative: Murmurs, Rubs Telemetry: Positive: No significant arrhythmia Extremity Exam: Positive: Normal pulses; Negative: Edema Skin Exam: Positive: Nl turgor and temperature; Negative: Breakdown Psych Exam: Positive: Mood NL Assessment /Plan Problems (1) COPD with exacerbation Status: Acute Problem Text: 12/21- No ABG's have been ordered in several days, new ABG showing she a normal pH with decreased PO2, we had her put on her CPAP and after a short amount of time she was doing much better. Even with the CPAP mask she still would desaturate somewhat but looked more comfortable and had easier work of breathing. We will transfer her back to PCU as she is otherwise stable and no longer requiring bilevel therapy. While she is stable right now, there is concern about how compliant she will be with her CPAP at home to prevent her from needing to come back to the hospital. 12/20/18: Patient reports to be feeling at her baseline. She remains on 5L NC, only on 2L bleed in when on pressure support, Levaquin 750mg q 48hs D1 levo 750 IV q48H (prior to this D4 doxy) 12/15 BCX1/2 Acinetobacter sp 12/15 SCX heavy P. aeruginosa . (2) Atrial fibrillation Status: Acute Problem Text: 12/21- Rate controlled, on eliquis. Echo still pending. 12/20/18: Patient in NSR, regular rate - she seems to have converted on the increased dose of diltiazem. ECHO ordered yesterday and still pending. Pulmonary reports that she has a h/o PAF. This seems to be a new dx to our service, but they report that they have it documented in the past. 12/19 new onset AF RVR-on HC dilt CD 120 QD, increased to BID given RVR to 120- 130 QHS, + apix and check TTE 12/15 TSH 0.6 (3) Diastolic congestive heart failure Status: Chronic Problem Text: 12/21- Patient not showing signs of fluid overload at this time. She has been net negative the last several days. 12/20/18: Patient appears well compensated on exam this morning Patient appears well compensated on HD bumet 2, radu 25 QD 03/2018 TTE c grade 1 kody/mild HHN/no VHD/severe PHTN-Linus (4) Pulmonary hypertension Status: Chronic Problem Text: severe, poor px (5) End stage COPD Status: Chronic Problem Text: chronically 2L NC at home (6) Human metapneumovirus (hMPV) pneumonia Status: Acute Response to Treatment: Improving (7) Chronic steroid use Status: Chronic Response to Treatment: Stable (8) Type 2 diabetes mellitus Status: Chronic Problem Text: 12/19/18: BG 167 12/18/18: BG 174 (9) Physical deconditioning Status: Chronic Problem Text: 12/17 not safe per PT Plan/VTE VTE Prophylaxis Ordered?: Yes (Lovenox) Plan Anticipated Discharge: Home VS, I&O, 24H, Fishbone Vital Signs/I&O Vital Signs Date Time Temp Pulse Resp B/P (MAP) Pulse Ox O2 Delivery O2 Flow Rate FiO2 12/21/18 12:00 89 Nasal Cannula 2.0 12/21/18 12:00 96.8 91 20 157/70 (99) 12/19/18 04:00 35 I&O- Last 24 Hours up to 6 AM 12/21/18 06:00 Intake Total 1020 ml Output Total 1875 ml Balance -855 ml Laboratory Data 24H LABS Laboratory Tests 2 12/21/18 04:01: Nucleated Red Blood Cells % (auto) 0.0, Anion Gap 1L, Glomerular Filtration Rate 51.8, Blood Urea Nitrogen 51H, Creatinine 1.08, Sodium Level 143, Potassium Level 4.0, Chloride Level 94L, Carbon Dioxide Level 48H, Calcium Level 9.3 12/21/18 08:26: Blood Gas Bicarbonate Standard 44.6H, Arterial Blood pH 7.393, Arterial Blood Partial Pressure CO2 85.1*H, Arterial Blood Partial Pressure O2 52.4L, Arterial Blood Total CO2 53.3H, Arterial Blood HCO3 50.7H, Arterial Blood Base Excess 20.3H, Arterial Blood Oxygen Saturation 87.1L CBC/BMP Laboratory Tests 12/21/18 04:01 Red Blood Count 4.66, Mean Corpuscular Volume 93.8, Mean Corpuscular Hemoglobin 28.5, Mean Corpuscular Hemoglobin Concent 30.4 L, Red Cell Distribution Width 14.5, Calcium Level 9.3 Microbiology Microbiology 12/15/18 Blood Culture - Final, Complete NO GROWTH AFTER 5 DAYS 12/15/18 Blood Culture - Final, Complete Acinetobacter Species 12/15/18 Gram Stain - Final, Complete 12/15/18 Sputum Culture - Final, Complete Pseudomonas Aeruginosa 12/15/18 Respiratory Virus Panel (PCR) ([facility]) - Final, Complete Human Metapneumovirus GME ATTESTATION GME ATTESTATION My faculty preceptor for this patient encounter was physically present during the encounter and was fully available. All aspects of the patient interview, examination, medical decision making process, and medical care plan development were reviewed and approved by the faculty preceptor. The faculty preceptor is aware and concurs with the plan as stated in the body of this note and will attest to such by his/her cosignature. ATTENDING NOTE patient's saturation with cpap in place was mid 80's, as she was talking to us. when she relaxed her clenched right hand and stopped talking, sats improved to 90-91%. Denies dyspnea. Likes the moleskin that nurses put on her nasal bridge to relieve mask discomfort. to pcu if approved by Pulmonary service. ILA WADE DO Dec 21, 2018 16:47 Ila Garvey MD Dec 22, 2018 08:44
[2018-12-21] MEDS: ATORVASTATIN 20 MG TAB PO SCH (20:08)
[2018-12-22] VITALS (24 sets, daily range): BP systolic 120–176; BP diastolic 58–83; O2SAT 85–98
[2018-12-22] MEDS: IPRATROPIUM 0.5MG/ALBUTEROL 2.5MG INH SOL UD 3ML (DUONEB)(J7620) NEB SCH ×6 (01:20→20:00)
[2018-12-22 05:11] LABS: HEMATOCRIT 45.9 % (36.0-47.0); HEMOGLOBIN 13.7 g/dl (12.0-15.5); MEAN CORPUSCULAR HEMOGLOBIN 28.6 pg (27.0-33.0); MEAN CORPUSCULAR HGB CONC 29.8 g/dl (32.0-36.5); MEAN CORPUSCULAR VOLUME 95.8 fl (80.0-96.0); PLATELET COUNT, AUTOMATED 162 10^3/uL (150-450); RED BLOOD COUNT 4.79 10^6/uL (4.00-5.40); WHITE BLOOD COUNT 7.8 10^3/uL (4.0-10.0)
[2018-12-22 05:50] LABS: BLOOD UREA NITROGEN 47 MG/DL (7-18); CALCIUM LEVEL 9.3 MG/DL (8.8-10.2); CARBON DIOXIDE LEVEL 52 MEQ/L (21-32); CHLORIDE LEVEL 90 MEQ/L (98-107); CREATININE FOR GFR 1.12 MG/DL (0.55-1.30); GLOMERULAR FILTRATION RATE 49.7 (>32); GLUCOSE, FASTING 250 MG/DL (70-100); POTASSIUM SERUM 4.3 MEQ/L (3.5-5.1); SODIUM LEVEL 141 MEQ/L (136-145)
[2018-12-22] MEDS: methylPREDNISolone INJ 40 MG/1 ML VIAL (J2920) IV SCH (06:18)
[2018-12-22] MEDS: SLF 3 ML SYR IV SCH ×3 (06:18→20:03)
[2018-12-22] MEDS: BUDESONIDE 0.5 MG/2 ML INHALATION SUSPENSION INH SCH ×2 (07:17→20:50)
[2018-12-22] MEDS: TIOTROPIUM INHALER/CAPSULE (SPIRIVA) INH SCH (07:17)
[2018-12-22] MEDS: FORMOTEROL FUMARATE 20 MCG/2 ML INHALATION SOLUTION (PERFOROMIST) INH SCH ×2 (07:17→20:50)
[2018-12-22] MEDS: BUMETANIDE 1 MG TAB PO SCH (08:17)
[2018-12-22] MEDS: VITAMIN B COMPLEX/VIT C CAP PO SCH (08:17)
[2018-12-22] MEDS: ASPIRIN 81 MG ENTERIC TAB PO SCH (08:17)
[2018-12-22] MEDS: PANTOPRAZOLE 40MG TAB (PROTONIX) PO SCH (08:17)
[2018-12-22] MEDS: SPIRONOLACTONE 25 MG TAB PO SCH (08:18)
[2018-12-22] MEDS: APIXABAN 5 MG TAB (ELIQUIS) PO SCH ×2 (08:18→21:00)
--- NOTE | 2018-12-22 12:01 | IPNPDOC ---
Subjective Date Seen The patient was seen on 12/22/18. Subjective Chief Complaint/HPI says she doesn't have cpap at home and doesn't want one! Constitutional: Denies: Chills ENT: Denies: Head Aches Pulmonary: Denies: Pleuritic Chest Pain Cardiovascular: Denies: Chest Pain, Palpitations Gastrointestinal: Denies: Nausea, Abdominal Pain Hematologic: Denies: Bruising, Bleeding Excessively, Petecchia Musculoskeletal: Denies: Neck Pain Neurological: Denies: Weakness Psych: Reports: Mood Normal Objective Physical Examination General Exam: Positive: Alert, No Acute Distress Eye Exam: Positive: PERRLA; Negative: Ptosis ENT Exam: Positive: Atraumatic, Mucous membr. moist/pink, Pharynx Normal Neck Exam: Positive: Supple; Negative: JVD, thyromegaly Chest Exam: Positive: Clear to auscultation, Normal air movement (Accessory muscle use, increased work of breathing.), Rhonchi (mild rhonchi, breaths when snoozing with use of accessory muscles. has trouble speaking in complete sentence due to dyspnea), Diminished; Negative: Rales, Wheezing Heart Exam: Positive: Rate Normal, Regular Rhythm, Normal S1, Normal S2; Negative: Murmurs, Rubs Telemetry: Positive: No significant arrhythmia Abdomen Exam: Positive: Normal bowel sounds Extremity Exam: Positive: Normal pulses; Negative: Edema Skin Exam: Positive: Nl turgor and temperature; Negative: Breakdown Psych Exam: Positive: Mood NL Assessment /Plan Problems (1) COPD with exacerbation Status: Acute Problem Text: 12/22: chronic, resistant to fairly obvious need for cpap. 12/21- No ABG's have been ordered in several days, new ABG showing she a normal pH with decreased PO2, we had her put on her CPAP and after a short amount of time she was doing much better. Even with the CPAP mask she still would desaturate somewhat but looked more comfortable and had easier work of breathing. We will transfer her back to PCU as she is otherwise stable and no longer requiring bilevel therapy. While she is stable right now, there is concern about how compliant she will be with her CPAP at home to prevent her from needing to come back to the hospital. 12/20/18: Patient reports to be feeling at her baseline. She remains on 5L NC, only on 2L bleed in when on pressure support, Levaquin 750mg q 48hs D1 levo 750 IV q48H (prior to this D4 doxy) 12/15 BCX1/2 Acinetobacter sp 12/15 SCX heavy P. aeruginosa . (2) Atrial fibrillation Status: Acute Response to Treatment: Stable Problem Specific Plan: Monitor Clinically Problem Text: 12/21- Rate controlled, on eliquis. Echo still pending. 12/20/18: Patient in NSR, regular rate - she seems to have converted on the increased dose of diltiazem. ECHO ordered yesterday and still pending. Pulmonary reports that she has a h/o PAF. This seems to be a new dx to our service, but they report that they have it documented in the past. 12/19 new onset AF RVR-on HC dilt CD 120 QD, increased to BID given RVR to 120- 130 QHS, + apix and check TTE 12/15 TSH 0.6 (3) Diastolic congestive heart failure Status: Chronic Response to Treatment: Stable Problem Text: 12/21- Patient not showing signs of fluid overload at this time. She has been net negative the last several days. 12/20/18: Patient appears well compensated on exam this morning Patient appears well compensated on HD bumet 2, radu 25 QD 03/2018 TTE c grade 1 kody/mild HHN/no VHD/severe PHTN-Linus (4) Pulmonary hypertension Status: Chronic Response to Treatment: Stable Problem Text: severe, poor px (5) End stage COPD Status: Chronic Problem Text: 12/22: breaths more easily with cpap on. likely needs this for any hope of maintaining out of hospital chronically 2L NC at home (6) Human metapneumovirus (hMPV) pneumonia Status: Acute Response to Treatment: Improving (7) Chronic steroid use Status: Chronic Response to Treatment: Stable Problem Text: Dr. Campa changed to po pred today. methylprednisolone stopped. (8) Type 2 diabetes mellitus Status: Chronic Problem Text: 12/19/18: BG 167 12/18/18: BG 174 (9) Physical deconditioning Status: Chronic Problem Text: 12/17 not safe per PT Plan/VTE VTE Prophylaxis Ordered?: Yes (Lovenox) Plan Anticipated Discharge: Home VS, I&O, 24H, Fishbone Vital Signs/I&O Vital Signs Date Time Temp Pulse Resp B/P (MAP) Pulse Ox O2 Delivery O2 Flow Rate FiO2 12/22/18 08:18 71 146/67 12/22/18 08:00 2.0 12/22/18 08:00 98.2 24 97 12/22/18 05:06 BIPAP/CPAP 12/21/18 16:00 35 I&O- Last 24 Hours up to 6 AM 12/22/18 06:00 Intake Total 500 ml Output Total 2335 ml Balance -1835 ml Laboratory Data 24H LABS Laboratory Tests 2 12/22/18 04:43: Nucleated Red Blood Cells % (auto) 0.0, Anion Gap , Glomerular Filtration Rate 49.7, Blood Urea Nitrogen 47H, Creatinine 1.12, Sodium Level 141, Potassium Level 4.3, Chloride Level 90L, Carbon Dioxide Level 52H, Calcium Level 9.3 CBC/BMP Laboratory Tests 12/22/18 04:43 Red Blood Count 4.79, Mean Corpuscular Volume 95.8, Mean Corpuscular Hemoglobin 28.6, Mean Corpuscular Hemoglobin Concent 29.8 L, Red Cell Distribution Width 14.5, Calcium Level 9.3 Microbiology Microbiology 12/15/18 Blood Culture - Final, Complete NO GROWTH AFTER 5 DAYS 12/15/18 Blood Culture - Final, Complete Acinetobacter Species 12/15/18 Gram Stain - Final, Complete 12/15/18 Sputum Culture - Final, Complete Pseudomonas Aeruginosa 12/15/18 Respiratory Virus Panel (PCR) ([facility]) - Final, Complete Human Metapneumovirus Jaime Garvey MD Dec 22, 2018 12:01
[2018-12-22] MEDS: LevoFLOXacin 750 MG TABLET PO SCH (18:16)
[2018-12-22] MEDS: ATORVASTATIN 20 MG TAB PO SCH (20:03)
--- NOTE | 2018-12-22 20:46 | IPN ---
DATE: 12/22/2018 I again attended Jocelyne Silva. She is awake, alert. She stays off the pressure ventilation during the day. She is able to eat this morning. T-max overnight 98.2. Blood pressure 120 to 140. Heart rate generally in the 60s. Respiratory rate 14 and in the 20s without accessory muscle use. White blood cell count 7.8, hemoglobin 13.7, platelet count 162,000. Sodium 141, potassium 4.3, chloride 90, CO2 52, BUN 47, creatinine 1.12, glucose 250. She is able to eat a regular diet now. She feels short of breath with any activity, but that is her baseline. She remains a DO NOT RESUSCITATE, DO NOT INTUBATE. PHYSICAL EXAMINATION: She is awake, alert and appropriate. Dyspneic with any activity. Pupils reactive. Sclerae clear. Chest shows kyphosis with goal decreased breath sound intension. Reduced hyperresonance to percussion, but no focal wheeze, rhonchus, crackles or rubs this morning. Cardiac exam: Distance, but regular. Peripheral pulses diminished, but palpable. Trace edema. Abdomen: Obese, soft, nontender, normoactive bowel sounds. No convincing organomegaly or masses. Extremities show no cyanosis or clubbing. Neurologic: She is awake, alert and cooperative. Psychiatric: Normal mood and affect. IMPRESSION: 1. Acute on chronic respiratory failure, both hypoxemic and hypercapnic. 2. End-stage restricted lung disease. 3. DO NOT RESUSCITATE , DO NOT INTUBATE status. 4. Pulmonary hypertension. 5. Sleep apnea. RECOMMENDATIONS: At this point, will continue her current regimen. She is generally noncompliant with compression therapy as an outpatient. With that being the case, should she desire to go on hospice that would not be in appropriate. For now, would continue to wean her medications to dose in oral regimen. She remains on low dose methylprednisolone and will probably change that to prednisone today, maybe tomorrow since she got her morning dose already. Will increase out of bed as able. Further recommendations will be made in the progress record as new information becomes available. <<2:10>> if new information becomes available.
[2018-12-23] VITALS (29 sets, daily range): BP systolic 131–163; BP diastolic 57–89; O2SAT 78–99
[2018-12-23] MEDS: IPRATROPIUM 0.5MG/ALBUTEROL 2.5MG INH SOL UD 3ML (DUONEB)(J7620) NEB SCH ×6 (04:15→20:00)
[2018-12-23] MEDS: SLF 3 ML SYR IV SCH ×3 (06:00→21:14)
[2018-12-23] MEDS: FORMOTEROL FUMARATE 20 MCG/2 ML INHALATION SOLUTION (PERFOROMIST) INH SCH ×2 (07:03→20:48)
[2018-12-23] MEDS: BUDESONIDE 0.5 MG/2 ML INHALATION SUSPENSION INH SCH ×2 (07:03→20:47)
[2018-12-23] MEDS: TIOTROPIUM INHALER/CAPSULE (SPIRIVA) INH SCH (07:03)
--- NOTE | 2018-12-23 07:36 | IPNPDOC ---
Subjective Date Seen The patient was seen on 12/23/18. Subjective Chief Complaint/HPI SOB, hypoxia Events since last encounter Using Bipap during sleep and naps. Patient states she feels at baseline. Constitutional: Denies: Chills, Fever, Night Sweats Pulmonary: Reports: Dyspnea, Cough Cardiovascular: Denies: Chest Pain, Palpitations, Orthopnea, Paroxysmal Noc. Dyspnea, Lt Headedness Gastrointestinal: Denies: Nausea, Vomiting, Abdominal Pain, Diarrhea, Constip ation Psych: Reports: Mood Normal; Denies: Depression, Memory Issues Objective Physical Examination General Exam: Positive: Alert, No Acute Distress Eye Exam: Positive: PERRLA; Negative: Ptosis ENT Exam: Positive: Atraumatic, Mucous membr. moist/pink, Pharynx Normal Neck Exam: Positive: Supple; Negative: JVD, thyromegaly Chest Exam: Positive: Clear to auscultation, Diminished; Negative: Rales, Rhonchi, Wheezing Heart Exam: Positive: Rate Normal, Regular Rhythm, Normal S1, Normal S2; Negative: Murmurs, Rubs Telemetry: Positive: No significant arrhythmia Abdomen Exam: Positive: Normal bowel sounds Extremity Exam: Positive: Normal pulses; Negative: Edema Skin Exam: Positive: Nl turgor and temperature; Negative: Breakdown Psych Exam: Positive: Mood NL Assessment /Plan Problems (1) COPD with exacerbation Status: Acute Problem Text: 12/23/18: on 2 LNC which is baseline use at home. Will start OOB and PT. Patient non-compliant with CPAP at home. DIscussed importance of use of CPAP at home, states will utiliza it. Will have PFS touch base with daughter to review CPAP use. 12/22: chronic, resistant to fairly obvious need for cpap. 12/21- No ABG's have been ordered in several days, new ABG showing she a normal pH with decreased PO2, we had her put on her CPAP and after a short amount of time she was doing much better. Even with the CPAP mask she still would desaturate somewhat but looked more comfortable and had easier work of breathing. We will transfer her back to PCU as she is otherwise stable and no longer requiring bilevel therapy. While she is stable right now, there is concern about how compliant she will be with her CPAP at home to prevent her from needing to come back to the hospital. 12/20/18: Patient reports to be feeling at her baseline. She remains on 5L NC, only on 2L bleed in when on pressure support, Levaquin 750mg q 48hs D1 levo 750 IV q48H (prior to this D4 doxy) 12/15 BCX1/2 Acinetobacter sp 12/15 SCX heavy P. aeruginosa . (2) Atrial fibrillation Status: Acute Response to Treatment: Stable Problem Specific Plan: Monitor Clinically Problem Text: 12/21- Rate controlled, on eliquis. Echo still pending. 12/20/18: Patient in NSR, regular rate - she seems to have converted on the increased dose of diltiazem. ECHO ordered yesterday and still pending. Pulmonary reports that she has a h/o PAF. This seems to be a new dx to our service, but they report that they have it documented in the past. 12/19 new onset AF RVR-on HC dilt CD 120 QD, increased to BID given RVR to 120- 130 QHS, + apix and check TTE 12/15 TSH 0.6 (3) Diastolic congestive heart failure Status: Chronic Response to Treatment: Stable Problem Text: 12/21- Patient not showing signs of fluid overload at this time. She has been net negative the last several days. 12/20/18: Patient appears well compensated on exam this morning Patient appears well compensated on HD bumet 2, radu 25 QD 03/2018 TTE c grade 1 kody/mild HHN/no VHD/severe PHTN-Linus (4) Pulmonary hypertension Status: Chronic Response to Treatment: Stable Problem Text: severe, poor px (5) End stage COPD Status: Chronic Problem Text: 12/22: breaths more easily with cpap on. likely needs this for any hope of maintaining out of hospital chronically 2L NC at home (6) Human metapneumovirus (hMPV) pneumonia Status: Acute Response to Treatment: Improving (7) Chronic steroid use Status: Chronic Response to Treatment: Stable Problem Text: Dr. Campa changed to po pred today. methylprednisolone stopped. (8) Type 2 diabetes mellitus Status: Chronic Problem Text: 12/19/18: BG 167 12/18/18: BG 174 (9) Physical deconditioning Status: Chronic Problem Text: : will start PT. 12/17 not safe per PT Plan/VTE VTE Prophylaxis Ordered?: Yes (Lovenox) Plan Anticipated Discharge: Home VS, I&O, 24H, Fishbone Vital Signs/I&O Vital Signs Date Time Temp Pulse Resp B/P (MAP) Pulse Ox O2 Delivery O2 Flow Rate FiO2 12/23/18 07:09 91 Nasal Cannula 2.0 12/23/18 07:06 87 16 12/23/18 04:00 96.9 149/65 (93) 12/21/18 16:00 35 I&O- Last 24 Hours up to 6 AM 12/23/18 06:00 Intake Total 780 ml Output Total 1985 ml Balance -1205 ml Laboratory Data Microbiology Microbiology 12/15/18 Blood Culture - Final, Complete NO GROWTH AFTER 5 DAYS 12/15/18 Blood Culture - Final, Complete Acinetobacter Species 12/15/18 Gram Stain - Final, Complete 12/15/18 Sputum Culture - Final, Complete Pseudomonas Aeruginosa 12/15/18 Respiratory Virus Panel (PCR) ([facility]) - Final, Complete Human Metapneumovirus Zabrina Abbott Dec 23, 2018 07:36
[2018-12-23] MEDS: PANTOPRAZOLE 40MG TAB (PROTONIX) PO SCH (08:55)
[2018-12-23] MEDS: VITAMIN B COMPLEX/VIT C CAP PO SCH (08:55)
[2018-12-23] MEDS: BUMETANIDE 1 MG TAB PO SCH (08:56)
[2018-12-23] MEDS: predniSONE 20 MG TAB PO SCH (08:57)
[2018-12-23] MEDS: APIXABAN 5 MG TAB (ELIQUIS) PO SCH ×2 (08:57→21:14)
[2018-12-23] MEDS: SPIRONOLACTONE 25 MG TAB PO SCH (08:57)
[2018-12-23] MEDS: ASPIRIN 81 MG ENTERIC TAB PO SCH (08:57)
[2018-12-23] MEDS: ATORVASTATIN 20 MG TAB PO SCH (21:14)
[2018-12-24] VITALS (11 sets, daily range): BP systolic 125–151; BP diastolic 58–84; O2SAT 88–93
[2018-12-24] MEDS: IPRATROPIUM 0.5MG/ALBUTEROL 2.5MG INH SOL UD 3ML (DUONEB)(J7620) NEB SCH ×6 (00:23→20:00)
[2018-12-24 04:57] LABS: BASO # 0.1 10^3/uL (0.0-0.2); BASO % 0.3 % (0.0-1.0); EOS % 0.2 % (0.0-3.0); HEMATOCRIT 48.2 % (36.0-47.0); HEMOGLOBIN 14.9 g/dl (12.0-15.5); LYMPH # 1.5 10^3/uL (1.5-4.5); LYMPH % 7.7 % (24.0-44.0); MEAN CORPUSCULAR HGB CONC 30.9 g/dl (32.0-36.5); MONO % 5.3 % (0.0-5.0); NEUTROPHILS # 16.3 10^3/uL (1.8-7.7); NEUTROPHILS % 85.7 % (36.0-66.0); PLATELET COUNT, AUTOMATED 167 10^3/uL (150-450); RED BLOOD COUNT 5.13 10^6/uL (4.00-5.40)
[2018-12-24] MEDS: SLF 3 ML SYR IV SCH ×3 (05:38→20:22)
[2018-12-24 06:17] LABS: CALCIUM LEVEL 9.5 MG/DL (8.8-10.2); CREATININE FOR GFR 1.17 MG/DL (0.55-1.30); GLOMERULAR FILTRATION RATE 47.3 (>32); POTASSIUM SERUM 3.5 MEQ/L (3.5-5.1)
[2018-12-24] MEDS: BUDESONIDE 0.5 MG/2 ML INHALATION SUSPENSION INH SCH ×2 (07:27→22:06)
[2018-12-24] MEDS: TIOTROPIUM INHALER/CAPSULE (SPIRIVA) INH SCH (07:27)
[2018-12-24] MEDS: FORMOTEROL FUMARATE 20 MCG/2 ML INHALATION SOLUTION (PERFOROMIST) INH SCH ×2 (07:27→22:06)
--- NOTE | 2018-12-24 09:08 | IPNPDOC ---
Subjective Date Seen The patient was seen on 12/24/18. Subjective Chief Complaint/HPI hypoxia/COPD Events since last encounter Continues to use Bipap at sleep hours and naps. Does desaturate with movement and eating which appears to be patient's baseline. Pulmonary: Reports: Dyspnea, Cough Cardiovascular: Denies: Chest Pain, Palpitations Gastrointestinal: Reports: Constipation; Denies: Nausea, Vomiting, Abdominal Pain, Diarrhea Objective Physical Examination General Exam: Positive: Alert, No Acute Distress Eye Exam: Positive: PERRLA; Negative: Ptosis ENT Exam: Positive: Atraumatic, Mucous membr. moist/pink, Pharynx Normal Neck Exam: Positive: Supple; Negative: JVD, thyromegaly Chest Exam: Positive: Clear to auscultation, Diminished; Negative: Rales, Rhonchi, Wheezing Heart Exam: Positive: Rate Normal, Regular Rhythm, Normal S1, Normal S2; Negative: Murmurs, Rubs Telemetry: Positive: No significant arrhythmia Abdomen Exam: Positive: Normal bowel sounds Extremity Exam: Positive: Normal pulses; Negative: Edema Skin Exam: Positive: Nl turgor and temperature; Negative: Breakdown Psych Exam: Positive: Mood NL Assessment /Plan Problems (1) COPD with exacerbation Status: Acute Problem Text: 12/24/18: poor exertional tolerance. Patient at end stage COPD. continues to wish treatment and try Bipap. 12/23/18: on 2 LNC which is baseline use at home. Will start OOB and PT. Patient non-compliant with CPAP at home. DIscussed importance of use of CPAP at home, states will utiliza it. Will have PFS touch base with daughter to review CPAP use. 12/22: chronic, resistant to fairly obvious need for cpap. 12/21- No ABG's have been ordered in several days, new ABG showing she a normal pH with decreased PO2, we had her put on her CPAP and after a short amount of time she was doing much better. Even with the CPAP mask she still would desaturate somewhat but looked more comfortable and had easier work of breathing. We will transfer her back to PCU as she is otherwise stable and no longer requiring bilevel therapy. While she is stable right now, there is concern about how compliant she will be with her CPAP at home to prevent her from needing to come back to the hospital. 12/20/18: Patient reports to be feeling at her baseline. She remains on 5L NC, only on 2L bleed in when on pressure support, Levaquin 750mg q 48hs D1 levo 750 IV q48H (prior to this D4 doxy) 12/15 BCX1/2 Acinetobacter sp 12/15 SCX heavy P. aeruginosa . (2) Atrial fibrillation Status: Acute Response to Treatment: Stable Problem Specific Plan: Monitor Clinically Problem Text: 12/24/18: NSR 12/21- Rate controlled, on eliquis. Echo still pending. 12/20/18: Patient in NSR, regular rate - she seems to have converted on the increased dose of diltiazem. ECHO ordered yesterday and still pending. Pulmonary reports that she has a h/o PAF. This seems to be a new dx to our service, but they report that they have it documented in the past. 12/19 new onset AF RVR-on HC dilt CD 120 QD, increased to BID given RVR to 120- 130 QHS, + apix and check TTE 12/15 TSH 0.6 (3) Diastolic congestive heart failure Status: Chronic Response to Treatment: Stable Problem Text: 12/21- Patient not showing signs of fluid overload at this time. She has been net negative the last several days. 12/20/18: Patient appears well compensated on exam this morning Patient appears well compensated on HD bumet 2, radu 25 QD 03/2018 TTE c grade 1 kody/mild HHN/no VHD/severe PHTN-Linus (4) Pulmonary hypertension Status: Chronic Response to Treatment: Stable Problem Text: severe, poor px (5) End stage COPD Status: Chronic Problem Text: 12/22: breaths more easily with cpap on. likely needs this for any hope of maintaining out of hospital chronically 2L NC at home (6) Human metapneumovirus (hMPV) pneumonia Status: Acute Response to Treatment: Improving (7) Chronic steroid use Status: Chronic Response to Treatment: Stable Problem Text: Dr. Campa changed to po pred today. methylprednisolone stopped. (8) Type 2 diabetes mellitus Status: Chronic Problem Text: 12/19/18: BG 167 12/18/18: BG 174 (9) Physical deconditioning Status: Chronic Problem Text: : will start PT. 12/17 not safe per PT Plan/VTE VTE Prophylaxis Ordered?: Yes (Lovenox) Plan Anticipated Discharge: Home VS, I&O, 24H, [facility] Vital Signs/I&O Vital Signs Date Time Temp Pulse Resp B/P (MAP) Pulse Ox O2 Delivery O2 Flow Rate FiO2 12/24/18 06:00 93 Nasal Cannula 2.0 12/24/18 04:00 97.6 86 22 125/58 (80) 12/21/18 16:00 35 I&O- Last 24 Hours up to 6 AM 12/24/18 06:00 Intake Total 1310 ml Output Total 2005 ml Balance -695 ml Laboratory Data 24H LABS Laboratory Tests 2 12/24/18 04:37: Immature Granulocyte % (Auto) 0.8, White Blood Count 19.0H, Red Blood Count 5.13, Hemoglobin 14.9, Hematocrit 48.2H, Mean Corpuscular Volume 94.0, Mean Corpuscular Hemoglobin 29.0, Mean Corpuscular Hemoglobin Concent 30.9L, Red Cell Distribution Width 14.5, Platelet Count 167, Neutrophils (%) (Auto) 85.7H, Lymphocytes (%) (Auto) 7.7L, Monocytes (%) (Auto) 5.3H, Eosinophils (%) (Auto) 0.2, Basophils (%) (Auto) 0.3, Neutrophils # (Auto) 16.3H, Lymphocytes # (Auto) 1.5, Monocytes # (Auto) 1.0H, Eosinophils # (Auto) 0.0, Basophils # (Auto) 0.1, Nucleated Red Blood Cells % (auto) 0.0, Anion Gap 1L, Glomerular Filtration Rate 47.3, Blood Urea Nitrogen 50H, Creatinine 1.17, Sodium Level 140, Potassium Level 3.5, Chloride Level 89L, Carbon Dioxide Level 50H, Calcium Level 9.5 CBC/BMP Laboratory Tests 12/24/18 04:37 Red Blood Count 5.13, Mean Corpuscular Volume 94.0, Mean Corpuscular Hemoglobin 29.0, Mean Corpuscular Hemoglobin Concent 30.9 L, Red Cell Distribution Width 14.5, Neutrophils (%) (Auto) 85.7 H, Lymphocytes (%) (Auto) 7.7 L, Monocytes (%) (Auto) 5.3 H, Eosinophils (%) (Auto) 0.2, Basophils (%) (Auto) 0.3, Neutrophils # (Auto) 16.3 H, Lymphocytes # (Auto) 1.5, Monocytes # (Auto) 1.0 H, Eosinophils # (Auto) 0.0, Basophils # (Auto) 0.1, Calcium Level 9.5 Microbiology Microbiology 12/15/18 Blood Culture - Final, Complete NO GROWTH AFTER 5 DAYS 12/15/18 Blood Culture - Final, Complete Acinetobacter Species 12/15/18 Gram Stain - Final, Complete 12/15/18 Sputum Culture - Final, Complete Pseudomonas Aeruginosa 12/15/18 Respiratory Virus Panel (PCR) ([facility]) - Final, Complete Human Metapneumovirus Zabrina Abbott [facility] Dec 24, 2018 09:08
[2018-12-24] MEDS ORDERED: BISACODYL 10 MG SUPP PR PRN (09:15)
[2018-12-24] MEDS: BUMETANIDE 1 MG TAB PO SCH (09:16)
[2018-12-24] MEDS: VITAMIN B COMPLEX/VIT C CAP PO SCH (09:16)
[2018-12-24] MEDS: ASPIRIN 81 MG ENTERIC TAB PO SCH (09:16)
[2018-12-24] MEDS: PANTOPRAZOLE 40MG TAB (PROTONIX) PO SCH (09:16)
[2018-12-24] MEDS: SPIRONOLACTONE 25 MG TAB PO SCH (09:16)
[2018-12-24] MEDS: APIXABAN 5 MG TAB (ELIQUIS) PO SCH ×2 (09:17→20:22)
[2018-12-24] MEDS: predniSONE 20 MG TAB PO SCH (09:17)
[2018-12-24] MEDS: DOCUSATE SODIUM 100 MG CAP PO SCH ×2 (09:20→20:22)
[2018-12-24] MEDS: MIRALAX *UNIT DOSE* 17GM PACKET PO SCH (09:20)
[2018-12-24] MEDS: LevoFLOXacin 750 MG TABLET PO SCH (19:40)
[2018-12-24] MEDS: ATORVASTATIN 20 MG TAB PO SCH (20:22)
[2018-12-25] VITALS (20 sets, daily range): BP systolic 101–165; BP diastolic 54–89; O2SAT 85–95
[2018-12-25] MEDS: IPRATROPIUM 0.5MG/ALBUTEROL 2.5MG INH SOL UD 3ML (DUONEB)(J7620) NEB SCH ×7 (01:06→23:57)
[2018-12-25] MEDS: SLF 3 ML SYR IV SCH ×3 (06:00→22:00)
[2018-12-25 06:38] LABS: BASO % 0.2 % (0.0-1.0); EOS # 0.1 10^3/uL (0.0-0.50); EOS % 0.6 % (0.0-3.0); HEMATOCRIT 46.3 % (36.0-47.0); HEMOGLOBIN 14.1 g/dl (12.0-15.5); LYMPH # 1.5 10^3/uL (1.5-4.5); LYMPH % 8.2 % (24.0-44.0); MEAN CORPUSCULAR HEMOGLOBIN 28.5 pg (27.0-33.0); MEAN CORPUSCULAR HGB CONC 30.5 g/dl (32.0-36.5); MEAN CORPUSCULAR VOLUME 93.7 fl (80.0-96.0); MONO # 0.8 10^3/uL (0.0-0.8); MONO % 4.5 % (0.0-5.0); NEUTROPHILS # 15.3 10^3/uL (1.8-7.7); NEUTROPHILS % 85.2 % (36.0-66.0); PLATELET COUNT, AUTOMATED 165 10^3/uL (150-450); RED BLOOD COUNT 4.94 10^6/uL (4.00-5.40); WHITE BLOOD COUNT 17.9 10^3/uL (4.0-10.0)
[2018-12-25 07:16] LABS: CALCIUM LEVEL 9.6 MG/DL (8.8-10.2); CREATININE FOR GFR 1.18 MG/DL (0.55-1.30); GLOMERULAR FILTRATION RATE 46.8 (>32); POTASSIUM SERUM 3.8 MEQ/L (3.5-5.1)
[2018-12-25] MEDS: FORMOTEROL FUMARATE 20 MCG/2 ML INHALATION SOLUTION (PERFOROMIST) INH SCH ×2 (08:34→21:31)
[2018-12-25] MEDS: TIOTROPIUM INHALER/CAPSULE (SPIRIVA) INH SCH (08:37)
[2018-12-25] MEDS: BUDESONIDE 0.5 MG/2 ML INHALATION SUSPENSION INH SCH ×2 (08:37→21:31)
[2018-12-25] MEDS: MIRALAX *UNIT DOSE* 17GM PACKET PO SCH ×2 (09:00→09:22)
[2018-12-25] MEDS: ASPIRIN 81 MG ENTERIC TAB PO SCH (09:21)
[2018-12-25] MEDS: APIXABAN 5 MG TAB (ELIQUIS) PO SCH ×2 (09:21→20:27)
[2018-12-25] MEDS: VITAMIN B COMPLEX/VIT C CAP PO SCH (09:21)
[2018-12-25] MEDS: BUMETANIDE 1 MG TAB PO SCH (09:21)
[2018-12-25] MEDS: DOCUSATE SODIUM 100 MG CAP PO SCH ×2 (09:21→20:28)
[2018-12-25] MEDS: PANTOPRAZOLE 40MG TAB (PROTONIX) PO SCH (09:21)
[2018-12-25] MEDS: SPIRONOLACTONE 25 MG TAB PO SCH (09:21)
[2018-12-25] MEDS: predniSONE 20 MG TAB PO SCH (09:22)
--- NOTE | 2018-12-25 10:10 | REP ---
Portable chest x-ray: Single view. History: Pneumonia. Comparison study: December 17, 2018. Findings: The patient is again noted be leaned somewhat to the right. Oxygen delivery tubing and EKG monitoring electrodes are seen. There is an area of linear fibrosis in the right base versus plate-like atelectasis. No infiltrate is seen. Heart size is borderline unchanged. The aorta is calcific and tortuous. There is a fracture in the surgical neck of the left humerus again noted. Impression: Right base discoid atelectasis. Borderline heart size. No acute changes. Electronically Signed by Paul Woodson MD 12/25/2018 03:52 P
--- NOTE | 2018-12-25 10:34 | IPNPDOC ---
Subjective Date Seen The patient was seen on 12/25/18. Subjective Chief Complaint/HPI SOB, hypoxia Constitutional: Denies: Chills, Fever, Night Sweats Pulmonary: Reports: Dyspnea, Cough Cardiovascular: Denies: Chest Pain, Palpitations, Orthopnea, Paroxysmal Noc. Dyspnea, Lt Headedness Objective Physical Examination General Exam: Positive: Alert, No Acute Distress Eye Exam: Positive: PERRLA; Negative: Ptosis ENT Exam: Positive: Atraumatic, Mucous membr. moist/pink, Pharynx Normal Neck Exam: Positive: Supple; Negative: JVD, thyromegaly Chest Exam: Positive: Clear to auscultation, Diminished; Negative: Rales, Rhonchi, Wheezing Heart Exam: Positive: Rate Normal, Regular Rhythm, Normal S1, Normal S2; Negative: Murmurs, Rubs Telemetry: Positive: No significant arrhythmia Abdomen Exam: Positive: Normal bowel sounds Extremity Exam: Positive: Normal pulses; Negative: Edema Skin Exam: Positive: Nl turgor and temperature; Negative: Breakdown Psych Exam: Positive: Mood NL Assessment /Plan Problems (1) COPD with exacerbation Status: Acute Problem Text: 12/25/18: work toward rehab. PFS working on table top bipap. Will need noc ox and ABG 48 hrs prior to DC date. Jair discussion held with patient regarding prognosis and exertion tolerance. Patient wishes to proceed with PT and rehab. 12/24/18: poor exertional tolerance. Patient at end stage COPD. continues to wish treatment and try Bipap. 12/23/18: on 2 LNC which is baseline use at home. Will start OOB and PT. Patient non-compliant with CPAP at home. DIscussed importance of use of CPAP at home, states will utiliza it. Will have PFS touch base with daughter to review CPAP use. 12/22: chronic, resistant to fairly obvious need for cpap. 12/21- No ABG's have been ordered in several days, new ABG showing she a normal pH with decreased PO2, we had her put on her CPAP and after a short amount of time she was doing much better. Even with the CPAP mask she still would desaturate somewhat but looked more comfortable and had easier work of breathing. We will transfer her back to PCU as she is otherwise stable and no longer requiring bilevel therapy. While she is stable right now, there is concern about how compliant she will be with her CPAP at home to prevent her from needing to come back to the hospital. 12/20/18: Patient reports to be feeling at her baseline. She remains on 5L NC, only on 2L bleed in when on pressure support, Levaquin 750mg q 48hs D1 levo 750 IV q48H (prior to this D4 doxy) 12/15 BCX1/2 Acinetobacter sp 12/15 SCX heavy P. aeruginosa . (2) Atrial fibrillation Status: Acute Response to Treatment: Stable Problem Specific Plan: Monitor Clinically Problem Text: 12/24/18: NSR 12/21- Rate controlled, on eliquis. Echo still pending. 12/20/18: Patient in NSR, regular rate - she seems to have converted on the increased dose of diltiazem. ECHO ordered yesterday and still pending. Pulmonary reports that she has a h/o PAF. This seems to be a new dx to our service, but they report that they have it documented in the past. 12/19 new onset AF RVR-on HC dilt CD 120 QD, increased to BID given RVR to 120- 130 QHS, + apix and check TTE 12/15 TSH 0.6 (3) Diastolic congestive heart failure Status: Chronic Response to Treatment: Stable Problem Text: 12/21- Patient not showing signs of fluid overload at this time. She has been net negative the last several days. 12/20/18: Patient appears well compensated on exam this morning Patient appears well compensated on HD bumet 2, radu 25 QD 03/2018 TTE c grade 1 kody/mild HHN/no VHD/severe PHTN-Linus (4) Pulmonary hypertension Status: Chronic Response to Treatment: Stable Problem Text: severe, poor px (5) End stage COPD Status: Chronic Problem Text: 12/22: breaths more easily with cpap on. likely needs this for any hope of maintaining out of hospital chronically 2L NC at home (6) Human metapneumovirus (hMPV) pneumonia Status: Acute Response to Treatment: Improving (7) Chronic steroid use Status: Chronic Response to Treatment: Stable Problem Text: Dr. Campa changed to po pred today. methylprednisolone stopped. (8) Type 2 diabetes mellitus Status: Chronic Problem Text: 12/19/18: BG 167 12/18/18: BG 174 (9) Physical deconditioning Status: Chronic Problem Text: : will start PT. 12/17 not safe per PT Plan/VTE VTE Prophylaxis Ordered?: Yes (Lovenox) Plan Anticipated Discharge: Home VS, I&O, 24H, [facility] Vital Signs/I&O Vital Signs Date Time Temp Pulse Resp B/P (MAP) Pulse Ox O2 Delivery O2 Flow Rate FiO2 12/25/18 09:21 68 135/63 12/25/18 08:00 98.3 18 91 2.0 12/24/18 06:00 Nasal Cannula 12/21/18 16:00 35 I&O- Last 24 Hours up to 6 AM 12/25/18 06:00 Intake Total 1280 ml Output Total 1350 ml Balance -70 ml Laboratory Data 24H LABS Laboratory Tests 2 12/25/18 06:12: Immature Granulocyte % (Auto) 1.3, White Blood Count 17.9H, Red Blood Count 4.94, Hemoglobin 14.1, Hematocrit 46.3, Mean Corpuscular Volume 93.7, Mean Co rpuscular Hemoglobin 28.5, Mean Corpuscular Hemoglobin Concent 30.5L, Red Cell Distribution Width 14.5, Platelet Count 165, Neutrophils (%) (Auto) 85.2H, Lymphocytes (%) (Auto) 8.2L, Monocytes (%) (Auto) 4.5, Eosinophils (%) (Auto) 0.6, Basophils (%) (Auto) 0.2, Neutrophils # (Auto) 15.3H, Lymphocytes # (Auto) 1.5, Monocytes # (Auto) 0.8, Eosinophils # (Auto) 0.1, Basophils # (Auto) 0.0, Nucleated Red Blood Cells % (auto) 0.0, Anion Gap 4L, Glomerular Filtration Rate 46.8, Blood Urea Nitrogen 47H, Creatinine 1.18, Sodium Level 140, Potassium Level 3.8, Chloride Level 88L, Carbon Dioxide Level 48H, Calcium Level 9.6 CBC/BMP Laboratory Tests 12/25/18 06:12 Red Blood Count 4.94, Mean Corpuscular Volume 93.7, Mean Corpuscular Hemoglobin 28.5, Mean Corpuscular Hemoglobin Concent 30.5 L, Red Cell Distribution Width 14.5, Neutrophils (%) (Auto) 85.2 H, Lymphocytes (%) (Auto) 8.2 L, Monocytes (%) (Auto) 4.5, Eosinophils (%) (Auto) 0.6, Basophils (%) (Auto) 0.2, Neutrophils # (Auto) 15.3 H, Lymphocytes # (Auto) 1.5, Monocytes # (Auto) 0.8, Eosinophils # (Auto) 0.1, Basophils # (Auto) 0.0, Calcium Level 9.6 Microbiology Microbiology 12/15/18 Blood Culture - Final, Complete NO GROWTH AFTER 5 DAYS 12/15/18 Blood Culture - Final, Complete Acinetobacter Species 12/15/18 Gram Stain - Final, Complete 12/15/18 Sputum Culture - Final, Complete Pseudomonas Aeruginosa 12/15/18 Respiratory Virus Panel (PCR) ([facility]) - Final, Complete Human Metapneumovirus Zabrina Abbott [employer] Dec 25, 2018 10:33
[2018-12-25] MEDS: ATORVASTATIN 20 MG TAB PO SCH (20:27)
[2018-12-26] VITALS (24 sets, daily range): BP systolic 140–162; BP diastolic 75–94; O2SAT 85–97
[2018-12-26] MEDS: IPRATROPIUM 0.5MG/ALBUTEROL 2.5MG INH SOL UD 3ML (DUONEB)(J7620) NEB SCH ×6 (03:44→23:29)
[2018-12-26] MEDS: SLF 3 ML SYR IV SCH ×3 (06:00→21:10)
[2018-12-26 06:07] LABS: BASO % 0.2 % (0.0-1.0); EOS # 0.1 10^3/uL (0.0-0.50); EOS % 0.8 % (0.0-3.0); HEMATOCRIT 47.7 % (36.0-47.0); HEMOGLOBIN 14.5 g/dl (12.0-15.5); LYMPH # 1.2 10^3/uL (1.5-4.5); LYMPH % 7.2 % (24.0-44.0); MEAN CORPUSCULAR HEMOGLOBIN 28.9 pg (27.0-33.0); MEAN CORPUSCULAR HGB CONC 30.4 g/dl (32.0-36.5); MEAN CORPUSCULAR VOLUME 95.2 fl (80.0-96.0); MONO # 0.7 10^3/uL (0.0-0.8); NEUTROPHILS # 14.5 10^3/uL (1.8-7.7); NEUTROPHILS % 86.4 % (36.0-66.0); PLATELET COUNT, AUTOMATED 152 10^3/uL (150-450); RED BLOOD COUNT 5.01 10^6/uL (4.00-5.40); WHITE BLOOD COUNT 16.7 10^3/uL (4.0-10.0)
[2018-12-26 06:43] LABS: CALCIUM LEVEL 9.3 MG/DL (8.8-10.2); CREATININE FOR GFR 1.07 MG/DL (0.55-1.30); GLOMERULAR FILTRATION RATE 52.4 (>32); POTASSIUM SERUM 3.6 MEQ/L (3.5-5.1)
[2018-12-26] MEDS: BUDESONIDE 0.5 MG/2 ML INHALATION SUSPENSION INH SCH ×2 (07:14→20:50)
[2018-12-26] MEDS: TIOTROPIUM INHALER/CAPSULE (SPIRIVA) INH SCH (07:14)
[2018-12-26] MEDS: FORMOTEROL FUMARATE 20 MCG/2 ML INHALATION SOLUTION (PERFOROMIST) INH SCH ×2 (07:14→20:50)
[2018-12-26] MEDS: BUMETANIDE 1 MG TAB PO SCH (08:33)
[2018-12-26] MEDS: ASPIRIN 81 MG ENTERIC TAB PO SCH (08:33)
[2018-12-26] MEDS: DOCUSATE SODIUM 100 MG CAP PO SCH ×2 (08:33→21:09)
[2018-12-26] MEDS: APIXABAN 5 MG TAB (ELIQUIS) PO SCH ×2 (08:33→21:09)
[2018-12-26] MEDS: PANTOPRAZOLE 40MG TAB (PROTONIX) PO SCH (08:33)
[2018-12-26] MEDS: SPIRONOLACTONE 25 MG TAB PO SCH (08:33)
[2018-12-26] MEDS: VITAMIN B COMPLEX/VIT C CAP PO SCH (08:33)
[2018-12-26] MEDS: predniSONE 20 MG TAB PO SCH (08:34)
[2018-12-26] MEDS: MIRALAX *UNIT DOSE* 17GM PACKET PO SCH (08:34)
--- NOTE | 2018-12-26 09:44 | IPNPDOC ---
Subjective Date Seen The patient was seen on 12/26/18. Subjective Chief Complaint/HPI hypoxia Events since last encounter Continues to have poor exertion capacity with PT and nursing. Discussion held with patient regarding poor progression and wishes for treatment with end stage COPD. Patient requesting to go home and kept comfortable. Wishes to proceed with Bipap at times of sleep and baseline oxygen at home. Pulmonary: Reports: Dyspnea, Cough Cardiovascular: Reports: Orthopnea; Denies: Chest Pain, Palpitations Gastrointestinal: Denies: Nausea, Vomiting, Abdominal Pain, Diarrhea, Constipation Objective Physical Examination General Exam: Positive: Alert, No Acute Distress Eye Exam: Positive: PERRLA ENT Exam: Positive: Atraumatic, Mucous membr. moist/pink, Pharynx Normal Neck Exam: Positive: Supple Chest Exam: Positive: Clear to auscultation, Diminished Heart Exam: Positive: Rate Normal, Regular Rhythm, Normal S1, Normal S2 Telemetry: Positive: No significant arrhythmia Abdomen Exam: Positive: Normal bowel sounds Extremity Exam: Positive: Normal pulses Skin Exam: Positive: Nl turgor and temperature Psych Exam: Positive: Mood NL Assessment /Plan Problems (1) COPD with exacerbation Status: Acute Problem Text: 12/26/18: PFS to schedule family meeting with attending physician and palliative care social worker delinquency prevention for progression to home. Patient wishes to stop PT due to discomfort and dyspnea. 12/25/18: work toward rehab. PFS working on table top bipap. Will need noc ox and ABG 48 hrs prior to DC date. Jair discussion held with patient regarding prognosis and exertion tolerance. Patient wishes to proceed with PT and rehab. 12/24/18: poor exertional tolerance. Patient at end stage COPD. continues to wish treatment and try Bipap. 12/23/18: on 2 LNC which is baseline use at home. Will start OOB and PT. Patient non-compliant with CPAP at home. DIscussed importance of use of CPAP at home, states will utiliza it. Will have PFS touch base with daughter to review CPAP use. 12/22: chronic, resistant to fairly obvious need for cpap. 12/21- No ABG's have been ordered in several days, new ABG showing she a normal pH with decreased PO2, we had her put on her CPAP and after a short amount of time she was doing much better. Even with the CPAP mask she still would rajeev aturate somewhat but looked more comfortable and had easier work of breathing. We will transfer her back to PCU as she is otherwise stable and no longer requiring bilevel therapy. While she is stable right now, there is concern about how compliant she will be with her CPAP at home to prevent her from needing to come back to the hospital. 12/20/18: Patient reports to be feeling at her baseline. She remains on 5L NC, only on 2L bleed in when on pressure support, Levaquin 750mg q 48hs D1 levo 750 IV q48H (prior to this D4 doxy) 12/15 BCX1/2 Acinetobacter sp 12/15 SCX heavy P. aeruginosa . (2) Atrial fibrillation Status: Acute Response to Treatment: Stable Problem Specific Plan: Monitor Clinically Problem Text: 12/24/18: NSR 12/21- Rate controlled, on eliquis. Echo still pending. 12/20/18: Patient in NSR, regular rate - she seems to have converted on the increased dose of diltiazem. ECHO ordered yesterday and still pending. Pulmonary reports that she has a h/o PAF. This seems to be a new dx to our service, but they report that they have it documented in the past. 12/19 new onset AF RVR-on HC dilt CD 120 QD, increased to BID given RVR to 120- 130 QHS, + apix and check TTE 12/15 TSH 0.6 (3) Diastolic congestive heart failure Status: Chronic Response to Treatment: Stable Problem Text: 12/21- Patient not showing signs of fluid overload at this time. She has been net negative the last several days. 12/20/18: Patient appears well compensated on exam this morning Patient appears well compensated on HD bumet 2, radu 25 QD 03/2018 TTE c grade 1 kody/mild HHN/no VHD/severe PHTN-Linus (4) Pulmonary hypertension Status: Chronic Response to Treatment: Stable Problem Text: severe, poor px (5) End stage COPD Status: Chronic Problem Text: 12/22: breaths more easily with cpap on. likely needs this for any hope of maintaining out of hospital chronically 2L NC at home (6) Human metapneumovirus (hMPV) pneumonia Status: Acute Response to Treatment: Improving (7) Chronic steroid use Status: Chronic Response to Treatment: Stable Problem Text: Dr. Campa changed to po pred today. methylprednisolone stopped. (8) Type 2 diabetes mellitus Status: Chronic Problem Text: 12/19/18: BG 167 12/18/18: BG 174 (9) Physical deconditioning Status: Chronic Problem Text: : will start PT. 12/17 not safe per PT Plan/VTE VTE Prophylaxis Ordered?: Yes (Lovenox) Plan Anticipated Discharge: Home VS, I&O, 24H, [facility] Vital Signs/I&O Vital Signs Date Time Temp Pulse Resp B/P (MAP) Pulse Ox O2 Delivery O2 Flow Rate FiO2 12/26/18 08:33 80 159/81 12/26/18 08:00 97.4 22 97 12/26/18 05:00 BIPAP/CPAP 2.0 12/21/18 16:00 35 I&O- Last 24 Hours up to 6 AM 12/26/18 06:00 Intake Total 510 ml Output Total 1725 ml Balance -1215 ml Laboratory Data 24H LABS Laboratory Tests 2 12/26/18 05:39: Immature Granulocyte % (Auto) 1.4, White Blood Count 16.7H, Red Blood Count 5.01, Hemoglobin 14.5, Hematocrit 47.7H, Mean Corpuscular Volume 95.2, Mean Corpuscular Hemoglobin 28.9, Mean Corpuscular Hemoglobin Concent 30.4L, Red Cell Distribution Width 14.6H, Platelet Count 152, Neutrophils (%) (Auto) 86.4H, Lymphocytes (%) (Auto) 7.2L, Monocytes (%) (Auto) 4.0, Eosinophils (%) (Auto) 0.8, Basophils (%) (Auto) 0.2, Neutrophils # (Auto) 14.5H, Lymphocytes # (Auto) 1.2L, Monocytes # (Auto) 0.7, Eosinophils # (Auto) 0.1, Basophils # (Auto) 0.0, Nucleated Red Blood Cells % (auto) 0.0, Anion Gap 6L, Glomerular Filtration Rate 52.4, Blood Urea Nitrogen 44H, Creatinine 1.07, Sodium Level 141, Potassium Level 3.6, Chloride Level 90L, Carbon Dioxide Level 45H, Calcium Level 9.3 CBC/BMP Laboratory Tests 12/26/18 05:39 Red Blood Count 5.01, Mean Corpuscular Volume 95.2, Mean Corpuscular Hemoglobin 28.9, Mean Corpuscular Hemoglobin Concent 30.4 L, Red Cell Distribution Width 14.6 H, Neutrophils (%) (Auto) 86.4 H, Lymphocytes (%) (Auto) 7.2 L, Monocytes (%) (Auto) 4.0, Eosinophils (%) (Auto) 0.8, Basophils (%) (Auto) 0.2, Neutrophils # (Auto) 14.5 H, Lymphocytes # (Auto) 1.2 L, Monocytes # (Auto) 0.7, Eosinophils # (Auto) 0.1, Basophils # (Auto) 0.0, Calcium Level 9.3 Zabrina Abbott [employer] Dec 26, 2018 09:44
[2018-12-26] MEDS: LevoFLOXacin 750 MG TABLET PO SCH (17:21)
[2018-12-26] MEDS: ATORVASTATIN 20 MG TAB PO SCH (21:10)
[2018-12-27] VITALS (24 sets, daily range): BP systolic 137–151; BP diastolic 68–87; O2SAT 84–96
[2018-12-27] MEDS: IPRATROPIUM 0.5MG/ALBUTEROL 2.5MG INH SOL UD 3ML (DUONEB)(J7620) NEB SCH ×6 (02:57→23:37)
[2018-12-27] MEDS: SLF 3 ML SYR IV SCH ×3 (04:42→22:07)
[2018-12-27 05:07] LABS: ABG BASE EXCESS 17.5 (-2.0-2.0); ABG HCO3 45.7 MEQ/L (22.0-26.0); ABG O2 SATURATION 93.6 % (95.0-99.0); ABG PARTIAL PRESSURE O2 66.3 mmHg (75.0-100.0); ABG STANDARD HCO3 41.5 MEQ/L (22.0-26.0); ABG TOTAL CO2 47.8 MEQ/L (23.0-31.0); ABG pH (ARTERIAL) 7.441 UNITS (7.350-7.450)
[2018-12-27 05:09] LABS: ABG PARTIAL PRESSURE CO2 68.6 mmHg (35.0-45.0)
[2018-12-27 05:49] LABS: BASO % 0.2 % (0.0-1.0); EOS # 0.1 10^3/uL (0.0-0.50); EOS % 0.9 % (0.0-3.0); HEMATOCRIT 45.5 % (36.0-47.0); LYMPH # 1.3 10^3/uL (1.5-4.5); LYMPH % 8.3 % (24.0-44.0); MEAN CORPUSCULAR HEMOGLOBIN 28.6 pg (27.0-33.0); MEAN CORPUSCULAR HGB CONC 30.8 g/dl (32.0-36.5); MONO # 0.8 10^3/uL (0.0-0.8); MONO % 5.1 % (0.0-5.0); NEUTROPHILS # 13.5 10^3/uL (1.8-7.7); NEUTROPHILS % 84.2 % (36.0-66.0); PLATELET COUNT, AUTOMATED 170 10^3/uL (150-450); RED BLOOD COUNT 4.89 10^6/uL (4.00-5.40)
[2018-12-27 06:38] LABS: CALCIUM LEVEL 9.4 MG/DL (8.8-10.2); CREATININE FOR GFR 1.02 MG/DL (0.55-1.30); GLOMERULAR FILTRATION RATE 55.4 (>32); POTASSIUM SERUM 3.8 MEQ/L (3.5-5.1)
[2018-12-27] MEDS: BUDESONIDE 0.5 MG/2 ML INHALATION SUSPENSION INH SCH ×2 (07:42→20:06)
[2018-12-27] MEDS: FORMOTEROL FUMARATE 20 MCG/2 ML INHALATION SOLUTION (PERFOROMIST) INH SCH ×2 (07:42→20:06)
[2018-12-27] MEDS: TIOTROPIUM INHALER/CAPSULE (SPIRIVA) INH SCH (07:42)
[2018-12-27] MEDS: MIRALAX *UNIT DOSE* 17GM PACKET PO SCH (09:00)
[2018-12-27] MEDS: BUMETANIDE 1 MG TAB PO SCH (09:27)
[2018-12-27] MEDS: DOCUSATE SODIUM 100 MG CAP PO SCH ×2 (09:27→22:06)
[2018-12-27] MEDS: VITAMIN B COMPLEX/VIT C CAP PO SCH (09:28)
[2018-12-27] MEDS: predniSONE 20 MG TAB PO SCH (09:28)
[2018-12-27] MEDS: ASPIRIN 81 MG ENTERIC TAB PO SCH (09:28)
[2018-12-27] MEDS: APIXABAN 5 MG TAB (ELIQUIS) PO SCH ×2 (09:28→22:06)
[2018-12-27] MEDS: PANTOPRAZOLE 40MG TAB (PROTONIX) PO SCH (09:28)
[2018-12-27] MEDS: SPIRONOLACTONE 25 MG TAB PO SCH (09:28)
--- NOTE | 2018-12-27 11:02 | IPNPDOC ---
Subjective Date Seen The patient was seen on 12/27/18. Subjective Chief Complaint/HPI Still with Dysnea but better than on admission. Has chronic baseline MULTANI. Very limited mobility at home - ambulates with walker, but not often or far. HAs 24 hour care at home. On chronic O2 Constitutional: Denies: Chills, Fever Pulmonary: Reports: Dyspnea; Denies: Cough Cardiovascular: Denies: Chest Pain, Palpitations Gastrointestinal: Denies: Nausea, Vomiting, Abdominal Pain, Diarrhea, Constipation Objective Physical Examination General Exam: Positive: Alert, Mild Distress (Pursed lipped breathing - appears slightly dyspneaic) Chest Exam: Positive: Clear to auscultation, Diminished Heart Exam: Positive: Rate Normal, Regular Rhythm, Normal S1, Normal S2 Telemetry: Positive: No significant arrhythmia Abdomen Exam: Positive: Normal bowel sounds, Soft; Negative: Tenderness Extremity Exam: Negative: Edema Psych Exam: Positive: Mood NL Assessment /Plan Problems (1) COPD with exacerbation Status: Acute Problem Text: 12/27/18 - Tala is not really sure what her baseline resp status is, but it sounds like she has chronic dyspnea at baseline and very limited mobility due to Dyspnea. Family meeting today to discuss possible home with Hospice potentially 12/26/18: PFS to schedule family meeting with attending physician and palliative care socially responsible investment adviser for progression to home. Patient wishes to stop PT due to discomfort and dyspnea. 12/25/18: work toward rehab. PFS working on table top bipap. Will need noc ox and ABG 48 hrs prior to DC date. Jair discussion held with patient regarding prognosis and exertion tolerance. Patient wishes to proceed with PT and rehab. 12/24/18: poor exertional tolerance. Patient at end stage COPD. continues to wish treatment and try Bipap. 12/23/18: on 2 LNC which is baseline use at home. Will start OOB and PT. Patient non-compliant with CPAP at home. DIscussed importance of use of CPAP at home, states will utiliza it. Will have PFS touch base with daughter to review CPAP use. 12/22: chronic, resistant to fairly obvious need for cpap. 12/21- No ABG's have been ordered in several days, new ABG showing she a normal pH with decreased PO2, we had her put on her CPAP and after a short amount of time she was doing much better. Even with the CPAP mask she still would desaturate somewhat but looked more comfortable and had easier work of breathing. We will transfer her back to PCU as she is otherwise stable and no longer requiring bilevel therapy. While she is stable right now, there is concern about how compliant she will be with her CPAP at home to prevent her from needing to come back to the hospital. 12/20/18: Patient reports to be feeling at her baseline. She remains on 5L NC, only on 2L bleed in when on pressure support, Levaquin 750mg q 48hs D1 levo 750 IV q48H (prior to this D4 doxy) 12/15 BCX1/2 Acinetobacter sp 12/15 SCX heavy P. aeruginosa . (2) End stage COPD Status: Chronic Problem Text: 12/27 - On Chronic BIPAP at hs as well as NC during the day Cont Spiriva and Pulmicort 12/22: breaths more easily with cpap on. likely needs this for any hope of maintaining out of hospital chronically 2L NC at home (3) Atrial fibrillation Status: Acute Response to Treatment: Stable Problem Specific Plan: Monitor Clinically Problem Text: 12/27 - NSR currently with rate controlled on Diltiazem Cont Eliquis 12/24/18: NSR 12/21- Rate controlled, on eliquis. Echo still pending. 12/20/18: Patient in NSR, regular rate - she seems to have converted on the increased dose of diltiazem. ECHO ordered yesterday and still pending. Pulmonary reports that she has a h/o PAF. This seems to be a new dx to our service, but they report that they have it documented in the past. 12/19 new onset AF RVR-on HC dilt CD 120 QD, increased to BID given RVR to 120- 130 QHS, + apix and check TTE 12/15 TSH 0.6 (4) Diastolic congestive heart failure Status: Chronic Response to Treatment: Stable Problem Text: 12/27 - compensated on Bumex and Aldactone 12/21- Patient not showing signs of fluid overload at this time. She has been net negative the last several days. 12/20/18: Patient appears well compensated on exam this morning Patient appears well compensated on HD bumet 2, radu 25 QD 03/2018 TTE c grade 1 kody/mild HHN/no VHD/severe PHTN-Linus (5) Pulmonary hypertension Status: Chronic Response to Treatment: Stable Problem Text: severe, poor px (6) Human metapneumovirus (hMPV) pneumonia Status: Acute Response to Treatment: Improving (7) Chronic steroid use Status: Chronic Response to Treatment: Stable Problem Text: Dr. Campa changed to po pred today. methylprednisolone stopped. (8) Type 2 diabetes mellitus Status: Chronic Problem Text: 12/19/18: BG 167 12/18/18: BG 174 (9) Physical deconditioning Status: Chronic Problem Text: : will start PT. 12/17 not safe per PT Plan/VTE VTE Prophylaxis Ordered?: Yes (Lovenox) Plan Anticipated Discharge: Home Disposition See above VS, I&O, 24H, Fishbone Vital Signs/I&O Vital Signs Date Time Temp Pulse Resp B/P (MAP) Pulse Ox O2 Delivery O2 Flow Rate FiO2 12/27/18 09:31 2.0 12/27/18 09:28 80 150/79 12/27/18 08:00 97.9 18 99 12/27/18 06:45 Nasal Cannula 12/21/18 16:00 35 I&O- Last 24 Hours up to 6 AM 12/27/18 06:00 Intake Total 1020 ml Output Total 1900 ml Balance -880 ml Laboratory Data 24H LABS Laboratory Tests 2 12/27/18 05:00: Blood Gas Bicarbonate Standard 41.5H, Arterial Blood pH 7.441, Arterial Blood Partial Pressure CO2 68.6*H, Arterial Blood Partial Pressure O2 66.3L, Arterial Blood Total CO2 47.8H, Arterial Blood HCO3 45.7H, Arterial Blood Base Excess 17.5H, Arterial Blood Oxygen Saturation 93.6L 12/27/18 05:03: Immature Granulocyte % (Auto) 1.3, White Blood Count 16.0H, Red Blood Count 4.89, Hemoglobin 14.0, Hematocrit 45.5, Mean Corpuscular Volume 93.0, Mean Co rpuscular Hemoglobin 28.6, Mean Corpuscular Hemoglobin Concent 30.8L, Red Cell Distribution Width 14.4, Platelet Count 170, Neutrophils (%) (Auto) 84.2H, Lymphocytes (%) (Auto) 8.3L, Monocytes (%) (Auto) 5.1H, Eosinophils (%) (Auto) 0.9, Basophils (%) (Auto) 0.2, Neutrophils # (Auto) 13.5H, Lymphocytes # (Auto) 1.3L, Monocytes # (Auto) 0.8, Eosinophils # (Auto) 0.1, Basophils # (Auto) 0.0, Nucleated Red Blood Cells % (auto) 0.0, Anion Gap 0L, Glomerular Filtration Rate 55.4, Blood Urea Nitrogen 47H, Creatinine 1.02, Sodium Level 140, Potassium Level 3.8, Chloride Level 90L, Carbon Dioxide Level 50H, Calcium Level 9.4 CBC/BMP Laboratory Tests 12/27/18 05:03 Red Blood Count 4.89, Mean Corpuscular Volume 93.0, Mean Corpuscular Hemoglobin 28.6, Mean Corpuscular Hemoglobin Concent 30.8 L, Red Cell Distribution Width 14.4, Neutrophils (%) (Auto) 84.2 H, Lymphocytes (%) (Auto) 8.3 L, Monocytes (%) (Auto) 5.1 H, Eosinophils (%) (Auto) 0.9, Basophils (%) (Auto) 0.2, Neutrophils # (Auto) 13.5 H, Lymphocytes # (Auto) 1.3 L, Monocytes # (Auto) 0.8, Eosinophils # (Auto) 0.1, Basophils # (Auto) 0.0, Calcium Level 9.4 CASSIDY RAHMAN PA-C Dec 27, 2018 11:01
[2018-12-27] MEDS: ATORVASTATIN 20 MG TAB PO SCH (22:06)
[2018-12-28] VITALS (26 sets, daily range): BP systolic 124–140; BP diastolic 65–82; O2SAT 90–98
[2018-12-28] MEDS: IPRATROPIUM 0.5MG/ALBUTEROL 2.5MG INH SOL UD 3ML (DUONEB)(J7620) NEB SCH ×6 (03:32→23:40)
[2018-12-28 05:51] LABS: BASO # 0.1 10^3/uL (0.0-0.2); BASO % 0.4 % (0.0-1.0); EOS # 0.1 10^3/uL (0.0-0.50); EOS % 0.5 % (0.0-3.0); HEMOGLOBIN 14.5 g/dl (12.0-15.5); LYMPH # 1.4 10^3/uL (1.5-4.5); LYMPH % 8.3 % (24.0-44.0); MEAN CORPUSCULAR HEMOGLOBIN 29.1 pg (27.0-33.0); MEAN CORPUSCULAR HGB CONC 30.9 g/dl (32.0-36.5); MEAN CORPUSCULAR VOLUME 94.2 fl (80.0-96.0); MONO # 0.8 10^3/uL (0.0-0.8); MONO % 4.8 % (0.0-5.0); NEUTROPHILS # 13.8 10^3/uL (1.8-7.7); PLATELET COUNT, AUTOMATED 166 10^3/uL (150-450); RED BLOOD COUNT 4.99 10^6/uL (4.00-5.40); WHITE BLOOD COUNT 16.3 10^3/uL (4.0-10.0)
[2018-12-28] MEDS: SLF 3 ML SYR IV SCH ×3 (06:00→21:43)
[2018-12-28 06:50] LABS: CALCIUM LEVEL 9.4 MG/DL (8.8-10.2); CREATININE FOR GFR 1.13 MG/DL (0.55-1.30); GLOMERULAR FILTRATION RATE 49.2 (>32); POTASSIUM SERUM 3.6 MEQ/L (3.5-5.1)
[2018-12-28] MEDS: BUDESONIDE 0.5 MG/2 ML INHALATION SUSPENSION INH SCH ×2 (07:26→19:58)
[2018-12-28] MEDS: FORMOTEROL FUMARATE 20 MCG/2 ML INHALATION SOLUTION (PERFOROMIST) INH SCH ×2 (07:26→19:58)
[2018-12-28] MEDS: TIOTROPIUM INHALER/CAPSULE (SPIRIVA) INH SCH (07:27)
[2018-12-28] MEDS: MIRALAX *UNIT DOSE* 17GM PACKET PO SCH (09:00)
[2018-12-28] MEDS: DOCUSATE SODIUM 100 MG CAP PO SCH ×2 (09:56→21:44)
[2018-12-28] MEDS: BUMETANIDE 1 MG TAB PO SCH (09:56)
[2018-12-28] MEDS: VITAMIN B COMPLEX/VIT C CAP PO SCH (09:56)
[2018-12-28] MEDS: PANTOPRAZOLE 40MG TAB (PROTONIX) PO SCH (09:57)
[2018-12-28] MEDS: predniSONE 20 MG TAB PO SCH (09:57)
[2018-12-28] MEDS: ASPIRIN 81 MG ENTERIC TAB PO SCH (09:57)
[2018-12-28] MEDS: APIXABAN 5 MG TAB (ELIQUIS) PO SCH ×2 (09:57→21:44)
[2018-12-28] MEDS: SPIRONOLACTONE 25 MG TAB PO SCH (09:57)
--- NOTE | 2018-12-28 13:59 | IPNPDOC ---
Subjective Date Seen The patient was seen on 12/28/18. Subjective Chief Complaint/HPI No acute events overnight. Patient is not complaining of any worsening dyspnea at this time. Objective Physical Examination General Exam: Positive: Alert, Mild Distress (Pursed lipped breathing - appears slightly dyspneaic) Chest Exam: Positive: Clear to auscultation, Diminished Heart Exam: Positive: Rate Normal, Regular Rhythm, Normal S1, Normal S2 Telemetry: Positive: No significant arrhythmia Abdomen Exam: Positive: Normal bowel sounds, Soft; Negative: Tenderness Extremity Exam: Negative: Edema Psych Exam: Positive: Mood NL Assessment /Plan Problems (1) COPD with exacerbation Status: Acute Problem Text: 12/28/18- Patient is comfortable from a respiratory status sta ndpoint, staff thinks she may even be doing a little better. She will continue to work with PT. 12/27/18 - Patient is not really sure what her baseline resp status is, but it sounds like she has chronic dyspnea at baseline and very limited mobility due to Dyspnea. Family meeting today to discuss possible home with Hospice potentially 12/26/18: PFS to schedule family meeting with attending physician and palliative care social work associate for progression to home. Patient wishes to stop PT due to discomfort and dyspnea. 12/25/18: work toward rehab. PFS working on table top bipap. Will need noc ox and ABG 48 hrs prior to DC date. Jair discussion held with patient regarding prognosis and exertion tolerance. Patient wishes to proceed with PT and rehab. 12/24/18: poor exertional tolerance. Patient at end stage COPD. continues to wish treatment and try Bipap. 12/23/18: on 2 LNC which is baseline use at home. Will start OOB and PT. Patient non-compliant with CPAP at home. DIscussed importance of use of CPAP at home, states will utiliza it. Will have PFS touch base with daughter to review CPAP use. 12/22: chronic, resistant to fairly obvious need for cpap. 12/21- No ABG's have been ordered in several days, new ABG showing she a normal pH with decreased PO2, we had her put on her CPAP and after a short amount of time she was doing much better. Even with the CPAP mask she still would de saturate somewhat but looked more comfortable and had easier work of breathing. We will transfer her back to PCU as she is otherwise stable and no longer requiring bilevel therapy. While she is stable right now, there is concern about how compliant she will be with her CPAP at home to prevent her from needing to come back to the hospital. 12/20/18: Patient reports to be feeling at her baseline. She remains on 5L NC, only on 2L bleed in when on pressure support, Levaquin 750mg q 48hs D1 levo 750 IV q48H (prior to this D4 doxy) 12/15 BCX1/2 Acinetobacter sp 12/15 SCX heavy P. aeruginosa . (2) End stage COPD Status: Chronic Problem Text: 12/28- Continues with Bipap use for sleep/naps. 12/27 - On Chronic BIPAP at hs as well as NC during the day Cont Spiriva and Pulmicort 12/22: breaths more easily with cpap on. likely needs this for any hope of maintaining out of hospital chronically 2L NC at home (3) Atrial fibrillation Status: Acute Response to Treatment: Stable Problem Specific Plan: Monitor Clinically Problem Text: 12/27 - NSR currently with rate controlled on Diltiazem Cont Eliquis 12/24/18: NSR 12/21- Rate controlled, on eliquis. Echo still pending. 12/20/18: Patient in NSR, regular rate - she seems to have converted on the increased dose of diltiazem. ECHO ordered yesterday and still pending. Pulmonary reports that she has a h/o PAF. This seems to be a new dx to our service, but they report that they have it documented in the past. 12/19 new onset AF RVR-on HC dilt CD 120 QD, increased to BID given RVR to 120- 130 QHS, + apix and check TTE 12/15 TSH 0.6 (4) Diastolic congestive heart failure Status: Chronic Response to Treatment: Stable Problem Text: 12/27 - compensated on Bumex and Aldactone 12/21- Patient not showing signs of fluid overload at this time. She has been net negative the last several days. 12/20/18: Patient appears well compensated on exam this morning Patient appears well compensated on HD bumet 2, radu 25 QD 03/2018 TTE c grade 1 kody/mild HHN/no VHD/severe PHTN-Linus (5) Pulmonary hypertension Status: Chronic Response to Treatment: Stable Problem Text: severe, poor px (6) Human metapneumovirus (hMPV) pneumonia Status: Acute Response to Treatment: Improving (7) Chronic steroid use Status: Chronic Response to Treatment: Stable Problem Text: Dr. Campa changed to po pred today. methylprednisolone stopped. (8) Type 2 diabetes mellitus Status: Chronic Problem Text: 12/19/18: BG 167 12/18/18: BG 174 (9) Physical deconditioning Status: Chronic Problem Text: : will start PT. 12/17 not safe per PT Plan/VTE VTE Prophylaxis Ordered?: Yes (Lovenox) Plan Anticipated Discharge: Home VS, I&O, 24H, Fishbone Vital Signs/I&O Vital Signs Date Time Temp Pulse Resp B/P (MAP) Pulse Ox O2 Delivery O2 Flow Rate FiO2 12/28/18 12:00 96.2 95 18 133/72 (92) 96 2.0 12/28/18 07:34 BIPAP/CPAP I&O- Last 24 Hours up to 6 AM 12/28/18 06:00 Intake Total 600 ml Output Total 425 ml Balance 175 ml Laboratory Data 24H LABS Laboratory Tests 2 12/28/18 05:31: Immature Granulocyte % (Auto) 1.0, White Blood Count 16.3H, Red Blood Count 4.99, Hemoglobin 14.5, Hematocrit 47.0, Mean Corpuscular Volume 94.2, Mean Corpuscular Hemoglobin 29.1, Mean Corpuscular Hemoglobin Concent 30.9L, Red Cell Distribution Width 14.2, Platelet Count 166, Neutrophils (%) (Auto) 85.0H, Lymphocytes (%) (Auto) 8.3L, Monocytes (%) (Auto) 4.8, Eosinophils (%) (Auto) 0.5, Basophils (%) (Auto) 0.4, Neutrophils # (Auto) 13.8H, Lymphocytes # (Auto) 1.4L, Monocytes # (Auto) 0.8, Eosinophils # (Auto) 0.1, Basophils # (Auto) 0.1, Nucleated Red Blood Cells % (auto) 0.0, Anion Gap 1L, Glomerular Filtration Rate 49.2, Blood Urea Nitrogen 56H, Creatinine 1.13, Sodium Level 136, Potassium Level 3.6, Chloride Level 89L, Carbon Dioxide Level 46H, Calcium Level 9.4 CBC/BMP Laboratory Tests 12/28/18 05:31 Red Blood Count 4.99, Mean Corpuscular Volume 94.2, Mean Corpuscular Hemoglobin 29.1, Mean Corpuscular Hemoglobin Concent 30.9 L, Red Cell Distribution Width 14.2, Neutrophils (%) (Auto) 85.0 H, Lymphocytes (%) (Auto) 8.3 L, Monocytes (%) (Auto) 4.8, Eosinophils (%) (Auto) 0.5, Basophils (%) (Auto) 0.4, Neutrophils # (Auto) 13.8 H, Lymphocytes # (Auto) 1.4 L, Monocytes # (Auto) 0.8, Eosinophils # (Auto) 0.1, Basophils # (Auto) 0.1, Calcium Level 9.4 GME ATTESTATION GME ATTESTATION My faculty preceptor for this patient encounter was physically present during the encounter and was fully available. All aspects of the patient interview, examination, medical decision making process, and medical care plan development were reviewed and approved by the faculty preceptor. The faculty preceptor is aware and concurs with the plan as stated in the body of this note and will attest to such by his/her cosignature. GME ATTESTATION GME ATTESTATION My faculty preceptor for this patient encounter was physically present during the encounter and was fully available. All aspects of the patient interview, examination, medical decision making process, and medical care plan development were reviewed and approved by the faculty preceptor. The faculty preceptor is aware and concurs with the plan as stated in the body of this note and will attest to such by his/her cosignature. ILA WADE DO Dec 28, 2018 13:59
[2018-12-28] MEDS: ATORVASTATIN 20 MG TAB PO SCH (21:44)
[2018-12-29] VITALS (25 sets, daily range): BP systolic 121–152; BP diastolic 66–81; O2SAT 91–100
[2018-12-29] MEDS: IPRATROPIUM 0.5MG/ALBUTEROL 2.5MG INH SOL UD 3ML (DUONEB)(J7620) NEB SCH ×5 (04:23→19:51)
[2018-12-29] MEDS: SLF 3 ML SYR IV SCH ×3 (05:19→21:20)
[2018-12-29 06:02] LABS: BASO # 0.1 10^3/uL (0.0-0.2); BASO % 0.3 % (0.0-1.0); EOS # 0.1 10^3/uL (0.0-0.50); EOS % 0.6 % (0.0-3.0); HEMATOCRIT 45.5 % (36.0-47.0); LYMPH # 1.4 10^3/uL (1.5-4.5); LYMPH % 7.7 % (24.0-44.0); MEAN CORPUSCULAR HEMOGLOBIN 28.9 pg (27.0-33.0); MEAN CORPUSCULAR HGB CONC 30.8 g/dl (32.0-36.5); MEAN CORPUSCULAR VOLUME 93.8 fl (80.0-96.0); MONO # 0.9 10^3/uL (0.0-0.8); MONO % 5.3 % (0.0-5.0); NEUTROPHILS # 15.2 10^3/uL (1.8-7.7); PLATELET COUNT, AUTOMATED 180 10^3/uL (150-450); RED BLOOD COUNT 4.85 10^6/uL (4.00-5.40); WHITE BLOOD COUNT 17.8 10^3/uL (4.0-10.0)
[2018-12-29 06:55] LABS: CALCIUM LEVEL 9.1 MG/DL (8.8-10.2); CREATININE FOR GFR 1.01 MG/DL (0.55-1.30); POTASSIUM SERUM 3.6 MEQ/L (3.5-5.1)
[2018-12-29] MEDS: FORMOTEROL FUMARATE 20 MCG/2 ML INHALATION SOLUTION (PERFOROMIST) INH SCH ×2 (08:48→19:51)
[2018-12-29] MEDS: BUDESONIDE 0.5 MG/2 ML INHALATION SUSPENSION INH SCH ×2 (08:48→19:51)
[2018-12-29] MEDS: TIOTROPIUM INHALER/CAPSULE (SPIRIVA) INH SCH (08:48)
[2018-12-29] MEDS: SPIRONOLACTONE 25 MG TAB PO SCH (09:24)
[2018-12-29] MEDS: PANTOPRAZOLE 40MG TAB (PROTONIX) PO SCH (09:25)
[2018-12-29] MEDS: ASPIRIN 81 MG ENTERIC TAB PO SCH (09:25)
[2018-12-29] MEDS: BUMETANIDE 1 MG TAB PO SCH (09:25)
[2018-12-29] MEDS: predniSONE 20 MG TAB PO SCH (09:26)
[2018-12-29] MEDS: VITAMIN B COMPLEX/VIT C CAP PO SCH (09:26)
[2018-12-29] MEDS: DOCUSATE SODIUM 100 MG CAP PO SCH ×2 (09:26→21:06)
[2018-12-29] MEDS: MIRALAX *UNIT DOSE* 17GM PACKET PO SCH (09:26)
[2018-12-29] MEDS: APIXABAN 5 MG TAB (ELIQUIS) PO SCH ×2 (09:26→21:07)
[2018-12-29] MEDS: ATORVASTATIN 20 MG TAB PO SCH (21:06)
--- NOTE | 2018-12-29 22:01 | IPNPDOC ---
Subjective Date Seen The patient was seen on 12/29/18. Subjective Chief Complaint/HPI Patient seen with daughter at bedside. Patient states she is feeling fairly well, especially as she is eating better. Daughter thinks that she has been improving. She is still short of breath while speaking. She is anxious, keeping a fan directed at herself, and feels as though there is not enough air to breathe if her door is closed. General: Reports: Fatigue, Malaise Constitutional: Denies: Chills, Fever Pulmonary: Reports: Dyspnea, Cough Cardiovascular: Denies: Chest Pain Gastrointestinal: Denies: Nausea, Vomiting, Diarrhea, Constipation Neurological: Reports: Weakness Psych: Reports: Anxiety Objective Physical Examination General Exam: Positive: Alert, Mild Distress (Pursed lipped breathing - appears slightly dyspneaic) Chest Exam: Positive: Clear to auscultation, Diminished (markedly) Heart Exam: Positive: Rate Normal, Regular Rhythm, Normal S1, Normal S2 Telemetry: Positive: No significant arrhythmia Abdomen Exam: Positive: Normal bowel sounds, Soft; Negative: Tenderness Extremity Exam: Negative: Edema Psych Exam: Positive: Mood NL Assessment /Plan Problems (1) COPD with exacerbation Status: Acute Problem Text: 12/29 -- Though respiratory status improved, she is tachypneic at baseline. Her dyspnea significantly limits her activity. I encouraged her to try sitting upright for brief periods unsupported, or try adding brief periods of any movement while she is in bed. 12/28/18- Patient is comfortable from a respiratory status standpoint, staff thinks she may even be doing a little better. She will continue to work with PT. 12/27/18 - Patient is not really sure what her baseline resp status is, but it sounds like she has chronic dyspnea at baseline and very limited mobility due to Dyspnea. Family meeting today to discuss possible home with Hospice potentially 12/26/18: PFS to schedule family meeting with attending physician and palliative care rn social work for progression to home. Patient wishes to stop PT due to discomfort and dyspnea. 12/25/18: work toward rehab. PFS working on table top bipap. Will need noc ox and ABG 48 hrs prior to DC date. Jair discussion held with patient regarding prognosis and exertion tolerance. Patient wishes to proceed with PT and rehab. 12/24/18: poor exertional tolerance. Patient at end stage COPD. continues to wish treatment and try Bipap. 12/23/18: on 2 LNC which is baseline use at home. Will start OOB and PT. Patient non-compliant with CPAP at home. DIscussed importance of use of CPAP at home, states will utiliza it. Will have PFS touch base with daughter to review CPAP use. 12/22: chronic, resistant to fairly obvious need for cpap. 12/21- No ABG's have been ordered in several days, new ABG showing she a normal pH with decreased PO2, we had her put on her CPAP and after a short amount of time she was doing much better. Even with the CPAP mask she still would desaturate somewhat but looked more comfortable and had easier work of breathing. We will transfer her back to PCU as she is otherwise stable and no longer requiring bilevel therapy. While she is stable right now, there is concern about how compliant she will be with her CPAP at home to prevent her from needing to come back to the hospital. 12/20/18: Patient reports to be feeling at her baseline. She remains on 5L NC, only on 2L bleed in when on pressure support, Levaquin 750mg q 48hs D1 levo 750 IV q48H (prior to this D4 doxy) 12/15 BCX1/2 Acinetobacter sp 12/15 SCX heavy P. aeruginosa . (2) End stage COPD Status: Chronic Problem Text: 12/28- Continues with Bipap use for sleep/naps. 12/27 - On Chronic BIPAP at hs as well as NC during the day Cont Spiriva and Pulmicort 12/22: breaths more easily with cpap on. likely needs this for any hope of maintaining out of hospital chronically 2L NC at home (3) Atrial fibrillation Status: Acute Response to Treatment: Stable Problem Specific Plan: Monitor Clinically Problem Text: 12/27 - NSR currently with rate controlled on Diltiazem Cont Eliquis 12/24/18: NSR 12/21- Rate controlled, on eliquis. Echo still pending. 12/20/18: Patient in NSR, regular rate - she seems to have converted on the increased dose of diltiazem. ECHO ordered yesterday and still pending. Pulmonary reports that she has a h/o PAF. This seems to be a new dx to our service, but they report that they have it documented in the past. 12/19 new onset AF RVR-on HC dilt CD 120 QD, increased to BID given RVR to 120- 130 QHS, + apix and check TTE 12/15 TSH 0.6 (4) Diastolic congestive heart failure Status: Chronic Response to Treatment: Stable Problem Text: 12/27 - compensated on Bumex and Aldactone 12/21- Patient not showing signs of fluid overload at this time. She has been net negative the last several days. 12/20/18: Patient appears well compensated on exam this morning Patient appears well compensated on HD bumet 2, radu 25 QD 03/2018 TTE c grade 1 kody/mild HHN/no VHD/severe PHTN-Linus (5) Pulmonary hypertension Status: Chronic Response to Treatment: Stable Problem Text: severe, poor px (6) Human metapneumovirus (hMPV) pneumonia Status: Acute Response to Treatment: Improving (7) Chronic steroid use Status: Chronic Response to Treatment: Stable Problem Text: Dr. Campa changed to po pred today. methylprednisolone stopped. (8) Type 2 diabetes mellitus Status: Chronic Problem Text: 12/19/18: BG 167 12/18/18: BG 174 (9) Physical deconditioning Status: Chronic Problem Text: : will start PT. 12/17 not safe per PT Plan/VTE VTE Prophylaxis Ordered?: Yes (Lovenox) Plan Anticipated Discharge: Home VS, I&O, 24H, [facility] Vital Signs/I&O Vital Signs Date Time Temp Pulse Resp B/P (MAP) Pulse Ox O2 Delivery O2 Flow Rate FiO2 12/29/18 21:06 100 148/70 12/29/18 20:00 97.9 24 93 2.0 12/29/18 19:51 Nasal Cannula I&O- Last 24 Hours up to 6 AM 12/29/18 06:00 Intake Total 1060 ml Output Total 2125 ml Balance -1065 ml Laboratory Data 24H LABS Laboratory Tests 2 12/29/18 05:45: Immature Granulocyte % (Auto) 1.1, White Blood Count 17.8H, Red Blood Count 4.85, Hemoglobin 14.0, Hematocrit 45.5, Mean Corpuscular Volume 93.8, Mean Corpuscular Hemoglobin 28.9, Mean Corpuscular Hemoglobin Concent 30.8L, Red Cell Distribution Width 14.0, Platelet Count 180, Neutrophils (%) (Auto) 85.0H, Lymphocytes (%) (Auto) 7.7L, Monocytes (%) (Auto) 5.3H, Eosinophils (%) (Auto) 0.6, Basophils (%) (Auto) 0.3, Neutrophils # (Auto) 15.2H, Lymphocytes # (Auto) 1.4L, Monocytes # (Auto) 0.9H, Eosinophils # (Auto) 0.1, Basophils # (Auto) 0.1, Nucleated Red Blood Cells % (auto) 0.0, Anion Gap 1L, Glomerular Filtration Rate 56.0, Blood Urea Nitrogen 54H, Creatinine 1.01, Sodium Level 138, Potassium Level 3.6, Chloride Level 90L, Carbon Dioxide Level 47H, Calcium Level 9.1 CBC/BMP Laboratory Tests 12/29/18 05:45 Red Blood Count 4.85, Mean Corpuscular Volume 93.8, Mean Corpuscular Hemoglobin 28.9, Mean Corpuscular Hemoglobin Concent 30.8 L, Red Cell Distribution Width 14.0, Neutrophils (%) (Auto) 85.0 H, Lymphocytes (%) (Auto) 7.7 L, Monocytes (%) (Auto) 5.3 H, Eosinophils (%) (Auto) 0.6, Basophils (%) (Auto) 0.3, Neutrophils # (Auto) 15.2 H, Lymphocytes # (Auto) 1.4 L, Monocytes # (Auto) 0.9 H, Eosinophils # (Auto) 0.1, Basophils # (Auto) 0.1, Calcium Level 9.1 JEEVAN COTTON DO Dec 29, 2018 22:01
[2018-12-30] VITALS (24 sets, daily range): BP systolic 122–160; BP diastolic 65–86; O2SAT 88–96
[2018-12-30] MEDS: IPRATROPIUM 0.5MG/ALBUTEROL 2.5MG INH SOL UD 3ML (DUONEB)(J7620) NEB SCH ×6 (00:31→15:14)
[2018-12-30] MEDS: SLF 3 ML SYR IV SCH ×3 (05:17→22:00)
[2018-12-30 05:45] LABS: BASO % 0.2 % (0.0-1.0); EOS % 0.2 % (0.0-3.0); HEMATOCRIT 45.2 % (36.0-47.0); LYMPH % 5.7 % (24.0-44.0); MEAN CORPUSCULAR HEMOGLOBIN 28.7 pg (27.0-33.0); MEAN CORPUSCULAR VOLUME 92.6 fl (80.0-96.0); MONO # 0.6 10^3/uL (0.0-0.8); MONO % 3.4 % (0.0-5.0); NEUTROPHILS # 15.4 10^3/uL (1.8-7.7); NEUTROPHILS % 89.8 % (36.0-66.0); PLATELET COUNT, AUTOMATED 180 10^3/uL (150-450); RED BLOOD COUNT 4.88 10^6/uL (4.00-5.40); WHITE BLOOD COUNT 17.2 10^3/uL (4.0-10.0)
[2018-12-30 06:29] LABS: CALCIUM LEVEL 8.9 MG/DL (8.8-10.2); CREATININE FOR GFR 1.14 MG/DL (0.55-1.30); GLOMERULAR FILTRATION RATE 48.7 (>32); POTASSIUM SERUM 3.7 MEQ/L (3.5-5.1)
[2018-12-30] MEDS: BUDESONIDE 0.5 MG/2 ML INHALATION SUSPENSION INH SCH ×2 (07:08→19:28)
[2018-12-30] MEDS: TIOTROPIUM INHALER/CAPSULE (SPIRIVA) INH SCH (07:08)
[2018-12-30] MEDS: FORMOTEROL FUMARATE 20 MCG/2 ML INHALATION SOLUTION (PERFOROMIST) INH SCH ×2 (07:08→19:28)
[2018-12-30] MEDS: ASPIRIN 81 MG ENTERIC TAB PO SCH (09:09)
[2018-12-30] MEDS: predniSONE 20 MG TAB PO SCH (09:09)
[2018-12-30] MEDS: VITAMIN B COMPLEX/VIT C CAP PO SCH (09:09)
[2018-12-30] MEDS: MIRALAX *UNIT DOSE* 17GM PACKET PO SCH (09:09)
[2018-12-30] MEDS: APIXABAN 5 MG TAB (ELIQUIS) PO SCH ×2 (09:10→20:03)
[2018-12-30] MEDS: PANTOPRAZOLE 40MG TAB (PROTONIX) PO SCH (09:10)
[2018-12-30] MEDS: DOCUSATE SODIUM 100 MG CAP PO SCH ×2 (09:10→20:03)
[2018-12-30] MEDS: SPIRONOLACTONE 25 MG TAB PO SCH (09:10)
[2018-12-30] MEDS: BUMETANIDE 1 MG TAB PO SCH (09:10)
--- NOTE | 2018-12-30 11:55 | IPNPDOC ---
Subjective Date Seen The patient was seen on 12/30/18. Subjective Chief Complaint/HPI Pt this morning with Bipap on. RT at bedside. Pt reports breathing better today than yest. She has intemittent cough. No new concerns. General: Reports: Fatigue Constitutional: Denies: Chills, Fever Pulmonary: Reports: Dyspnea, Cough Cardiovascular: Denies: Chest Pain, Palpitations Gastrointestinal: Denies: Nausea, Vomiting, Abdominal Pain, Diarrhea Genitourinary: Denies: Dysuria Musculoskeletal: Denies: Neck Pain Neurological: Denies: Weakness Psych: Reports: Mood Normal Objective Physical Examination General Exam: Positive: Alert, No Acute Distress ENT Exam: Positive: Mucous membr. moist/pink Chest Exam: Positive: Diminished (markedly) Heart Exam: Positive: Rate Normal, Regular Rhythm, Normal S1, Normal S2 Telemetry: Positive: No significant arrhythmia Abdomen Exam: Positive: Normal bowel sounds, Soft; Negative: Tenderness Extremity Exam: Negative: Edema Neuro Exam: Positive: Normal Speech Psych Exam: Positive: Mood NL Assessment /Plan Problems (1) COPD with exacerbation Status: Acute Problem Text: 12/30 Resp status slowly making improvements. Along with PT stressed importance of exercising even wihtout PT present. 12/29 -- Though respiratory status improved, she is tachypneic at baseline. Her dyspnea significantly limits her activity. I encouraged her to try sitting upright for brief periods unsupported, or try adding brief periods of any movement while she is in bed. 12/28/18- Patient is comfortable from a respiratory status standpoint, staff thinks she may even be doing a little better. She will continue to work with PT. 12/27/18 - Patient is not really sure what her baseline resp status is, but it sounds like she has chronic dyspnea at baseline and very limited mobility due to Dyspnea. Family meeting today to discuss possible home with Hospice potentially 12/26/18: PFS to schedule family meeting with attending physician and palliative care social worker delinquency prevention for progression to home. Patient wishes to stop PT due to discomfort and dyspnea. 12/25/18: work toward rehab. PFS working on table top bipap. Will need noc ox and ABG 48 hrs prior to DC date. Jair discussion held with patient regarding prognosis and exertion tolerance. Patient wishes to proceed with PT and rehab. 12/24/18: poor exertional tolerance. Patient at end stage COPD. continues to wish treatment and try Bipap. 12/23/18: on 2 LNC which is baseline use at home. Will start OOB and PT. Patient non-compliant with CPAP at home. DIscussed importance of use of CPAP at home, states will utiliza it. Will have PFS touch base with daughter to review CPAP use. 12/22: chronic, resistant to fairly obvious need for cpap. 12/21- No ABG's have been ordered in several days, new ABG showing she a normal pH with decreased PO2, we had her put on her CPAP and after a short amount of time she was doing much better. Even with the CPAP mask she still would desaturate somewhat but looked more comfortable and had easier work of cayden athing. We will transfer her back to PCU as she is otherwise stable and no longer requiring bilevel therapy. While she is stable right now, there is concern about how compliant she will be with her CPAP at home to prevent her from needing to come back to the hospital. 12/20/18: Patient reports to be feeling at her baseline. She remains on 5L NC, only on 2L bleed in when on pressure support, Levaquin 750mg q 48hs D1 levo 750 IV q48H (prior to this D4 doxy) 12/15 BCX1/2 Acinetobacter sp 12/15 SCX heavy P. aeruginosa . (2) End stage COPD Status: Chronic Problem Text: 12/30 BIPAP except with meals. 12/28- Continues with Bipap use for sleep/naps. 12/27 - On Chronic BIPAP at hs as well as NC during the day Cont Spiriva and Pulmicort 12/22: breaths more easily with cpap on. likely needs this for any hope of maintaining out of hospital chronically 2L NC at home (3) Atrial fibrillation Status: Acute Response to Treatment: Stable Problem Specific Plan: Monitor Clinically Problem Text: 12/27 - NSR currently with rate controlled on Diltiazem Cont Eliquis 12/24/18: NSR 12/21- Rate controlled, on eliquis. Echo still pending. 12/20/18: Patient in NSR, regular rate - she seems to have converted on the incr eased dose of diltiazem. ECHO ordered yesterday and still pending. Pulmonary reports that she has a h/o PAF. This seems to be a new dx to our service, but they report that they have it documented in the past. 12/19 new onset AF RVR-on HC dilt CD 120 QD, increased to BID given RVR to 120- 130 QHS, + apix and check TTE 12/15 TSH 0.6 (4) Diastolic congestive heart failure Status: Chronic Response to Treatment: Stable Problem Text: 12/27 - compensated on Bumex and Aldactone 12/21- Patient not showing signs of fluid overload at this time. She has been net negative the last several days. 12/20/18: Patient appears well compensated on exam this morning Patient appears well compensated on HD bumet 2, radu 25 QD 03/2018 TTE c grade 1 kody/mild HHN/no VHD/severe PHTN-Linus (5) Pulmonary hypertension Status: Chronic Response to Treatment: Stable Problem Text: severe, poor px (6) Human metapneumovirus (hMPV) pneumonia Status: Acute Response to Treatment: Improving (7) Chronic steroid use Status: Chronic Response to Treatment: Stable Problem Text: 12/30 Pred 10 po daily HD, currently on 40 mg daily, will change to 30 mg daily today. 12/23 Dr. Campa changed to po pred today. methylprednisolone stopped. (8) Type 2 diabetes mellitus Status: Chronic Problem Text: 12/19/18: BG 167 12/18/18: BG 174 (9) Physical deconditioning Status: Chronic Problem Text: 12/30 PT to cont to work with pt, PFS working with pt on d/c planning. 12/23/149: will start PT. 12/17 not safe per PT Plan/VTE VTE Prophylaxis Ordered?: Yes (Lovenox) Plan Anticipated Discharge: Home VS, I&O, 24H, [facility] Vital Signs/I&O Vital Signs Date Time Temp Pulse Resp B/P (MAP) Pulse Ox O2 Delivery O2 Flow Rate FiO2 12/30/18 09:10 85 122/80 12/30/18 08:00 98.3 18 96 12/30/18 06:00 BIPAP/CPAP 2.0 I&O- Last 24 Hours up to 6 AM 12/30/18 06:00 Intake Total 740 ml Output Total 1600 ml Balance -860 ml Laboratory Data 24H LABS Laboratory Tests 2 12/30/18 05:28: Immature Granulocyte % (Auto) 0.7, White Blood Count 17.2H, Red Blood Count 4.88, Hemoglobin 14.0, Hematocrit 45.2, Mean Corpuscular Volume 92.6, Mean Corpuscular Hemoglobin 28.7, Mean Corpuscular Hemoglobin Concent 31.0L, Red Cell Distribution Width 13.9, Platelet Count 180, Neutrophils (%) (Auto) 89.8H, Lymphocytes (%) (Auto) 5.7L, Monocytes (%) (Auto) 3.4, Eosinophils (%) (Auto) 0.2, Basophils (%) (Auto) 0.2, Neutrophils # (Auto) 15.4H, Lymphocytes # (Auto) 1.0L, Monocytes # (Auto) 0.6, Eosinophils # (Auto) 0.0, Basophils # (Auto) 0.0, Nucleated Red Blood Cells % (auto) 0.0, Anion Gap 5L, Glomerular Filtration Rate 48.7, Blood Urea Nitrogen 51H, Creatinine 1.14, Sodium Level 138, Potassium Level 3.7, Chloride Level 89L, Carbon Dioxide Level 44H, Calcium Level 8.9 CBC/BMP Laboratory Tests 12/30/18 05:28 Red Blood Count 4.88, Mean Corpuscular Volume 92.6, Mean Corpuscular Hemoglobin 28.7, Mean Corpuscular Hemoglobin Concent 31.0 L, Red Cell Distribution Width 13.9, Neutrophils (%) (Auto) 89.8 H, Lymphocytes (%) (Auto) 5.7 L, Monocytes (%) (Auto) 3.4, Eosinophils (%) (Auto) 0.2, Basophils (%) (Auto) 0.2, Neutrophils # (Auto) 15.4 H, Lymphocytes # (Auto) 1.0 L, Monocytes # (Auto) 0.6, Eosinophils # (Auto) 0.0, Basophils # (Auto) 0.0, Calcium Level 8.9 ALEX BERNAL PA-C Dec 30, 2018 11:55
[2018-12-30] MEDS: ATORVASTATIN 20 MG TAB PO SCH (20:03)
[2018-12-31] VITALS (25 sets, daily range): BP systolic 115–138; BP diastolic 70–78; O2SAT 90–98
[2018-12-31] MEDS: IPRATROPIUM 0.5MG/ALBUTEROL 2.5MG INH SOL UD 3ML (DUONEB)(J7620) NEB SCH ×7 (04:35→23:21)
[2018-12-31 05:53] LABS: BASO % 0.1 % (0.0-1.0); EOS # 0.1 10^3/uL (0.0-0.50); EOS % 0.3 % (0.0-3.0); HEMATOCRIT 46.7 % (36.0-47.0); HEMOGLOBIN 14.4 g/dl (12.0-15.5); LYMPH # 1.1 10^3/uL (1.5-4.5); LYMPH % 6.9 % (24.0-44.0); MEAN CORPUSCULAR HEMOGLOBIN 28.9 pg (27.0-33.0); MEAN CORPUSCULAR HGB CONC 30.8 g/dl (32.0-36.5); MEAN CORPUSCULAR VOLUME 93.6 fl (80.0-96.0); MONO # 0.7 10^3/uL (0.0-0.8); MONO % 4.1 % (0.0-5.0); NEUTROPHILS # 14.2 10^3/uL (1.8-7.7); NEUTROPHILS % 87.9 % (36.0-66.0); PLATELET COUNT, AUTOMATED 175 10^3/uL (150-450); RED BLOOD COUNT 4.99 10^6/uL (4.00-5.40); WHITE BLOOD COUNT 16.2 10^3/uL (4.0-10.0)
[2018-12-31] MEDS: SLF 3 ML SYR IV SCH ×3 (06:00→21:45)
[2018-12-31 06:33] LABS: CALCIUM LEVEL 9.5 MG/DL (8.8-10.2); CREATININE FOR GFR 1.05 MG/DL (0.55-1.30); GLOMERULAR FILTRATION RATE 53.5 (>32)
[2018-12-31] MEDS: TIOTROPIUM INHALER/CAPSULE (SPIRIVA) INH SCH (07:11)
[2018-12-31] MEDS: BUDESONIDE 0.5 MG/2 ML INHALATION SUSPENSION INH SCH ×2 (07:11→20:21)
[2018-12-31] MEDS: FORMOTEROL FUMARATE 20 MCG/2 ML INHALATION SOLUTION (PERFOROMIST) INH SCH ×2 (07:11→20:21)
[2018-12-31] MEDS: VITAMIN B COMPLEX/VIT C CAP PO SCH (08:28)
[2018-12-31] MEDS: BUMETANIDE 1 MG TAB PO SCH (08:28)
[2018-12-31] MEDS: SPIRONOLACTONE 25 MG TAB PO SCH (08:29)
[2018-12-31] MEDS: ASPIRIN 81 MG ENTERIC TAB PO SCH (08:29)
[2018-12-31] MEDS: PANTOPRAZOLE 40MG TAB (PROTONIX) PO SCH (08:29)
[2018-12-31] MEDS: APIXABAN 5 MG TAB (ELIQUIS) PO SCH ×2 (08:29→21:44)
[2018-12-31] MEDS: DOCUSATE SODIUM 100 MG CAP PO SCH ×2 (08:29→21:44)
[2018-12-31] MEDS: MIRALAX *UNIT DOSE* 17GM PACKET PO SCH (08:29)
[2018-12-31] MEDS: predniSONE 10 MG TAB PO SCH (08:29)
--- NOTE | 2018-12-31 09:26 | IPNPDOC ---
Subjective Date Seen The patient was seen on 12/31/18. Subjective Chief Complaint/HPI No new complaints Constitutional: Denies: Chills, Fever Pulmonary: Reports: Dyspnea; Denies: Cough Cardiovascular: Denies: Chest Pain, Palpitations Gastrointestinal: Denies: Nausea, Vomiting, Abdominal Pain, Diarrhea, Constipation Objective Physical Examination General Exam: Positive: Alert, No Acute Distress (Looks dyspneic chronically with purse lipped breathing with minimal exertion) ENT Exam: Positive: Mucous membr. moist/pink Chest Exam: Positive: Diminished (markedly) Heart Exam: Positive: Rate Normal, Regular Rhythm, Normal S1, Normal S2 Telemetry: Positive: No significant arrhythmia, Sinus (with PACs) Abdomen Exam: Positive: Normal bowel sounds, Soft; Negative: Tenderness Extremity Exam: Negative: Edema Neuro Exam: Positive: Normal Speech Psych Exam: Positive: Mood NL Assessment /Plan Problems (1) Chronic respiratory failure with hypoxia and hypercapnia Status: Chronic Response to Treatment: Stable Problem Text: Now on BIPAP - requires this when sleeping which is most of the day. Will ask pulm to revisit to determine if settings are stable - this will help PFS with plans for subacute rehab (2) COPD with exacerbation Status: Acute Problem Text: 12/31 - Cont Prednisone 30 QD Performist, SPiriva, Pulmicort, nebs Chronic BIPAP when sleeping 12/30 Resp status slowly making improvements. Along with PT stressed importance of exercising even wihtout PT present. 12/29 -- Though respiratory status improved, she is tachypneic at baseline. Her dyspnea significantly limits her activity. I encouraged her to try sitting upright for brief periods unsupported, or try adding brief periods of any movement while she is in bed. 12/28/18- Patient is comfortable from a respiratory status standpoint, staff thinks she may even be doing a little better. She will continue to work with PT. 12/27/18 - Patient is not really sure what her baseline resp status is, but it sounds like she has chronic dyspnea at baseline and very limited mobility due to Dyspnea. Family meeting today to discuss possible home with Hospice potentially 12/26/18: PFS to schedule family meeting with attending physician and palliative care director social welfare for progression to home. Patient wishes to stop PT due to discomfort and dyspnea. 12/25/18: work toward rehab. PFS working on table top bipap. Will need noc ox and ABG 48 hrs prior to DC date. Jair discussion held with patient regarding prognosis and exertion tolerance. Patient wishes to proceed with PT and rehab. 12/24/18: poor exertional tolerance. Patient at end stage COPD. continues to wish treatment and try Bipap. 12/23/18: on 2 LNC which is baseline use at home. Will start OOB and PT. Patient non-compliant with CPAP at home. DIscussed importance of use of CPAP at home, states will utiliza it. Will have PFS touch base with daughter to review CPAP use. 12/22: chronic, resistant to fairly obvious need for cpap. 12/21- No ABG's have been ordered in several days, new ABG showing she a normal pH with decreased PO2, we had her put on her CPAP and after a short amount of time she was doing much better. Even with the CPAP mask she still would desaturate somewhat but looked more comfortable and had easier work of breathing. We will transfer her back to PCU as she is otherwise stable and no longer requiring bilevel therapy. While she is stable right now, there is concern about how compliant she will be with her CPAP at home to prevent her from needing to come back to the hospital. 12/20/18: Patient reports to be feeling at her baseline. She remains on 5L NC, only on 2L bleed in when on pressure support, Levaquin 750mg q 48hs D1 levo 750 IV q48H (prior to this D4 doxy) 12/15 BCX1/2 Acinetobacter sp 12/15 SCX heavy P. aeruginosa . (3) End stage COPD Status: Chronic Problem Text: 12/30 BIPAP except with meals. 12/28- Continues with Bipap use for sleep/naps. 12/27 - On Chronic BIPAP at hs as well as NC during the day Cont Spiriva and Pulmicort 12/22: breaths more easily with cpap on. likely needs this for any hope of maintaining out of hospital chronically 2L NC at home (4) Atrial fibrillation Status: Acute Response to Treatment: Stable Problem Specific Plan: Monitor Clinically Problem Text: a4/2 - remains SR with PACs on Diltiazem On Eliquis 12/27 - NSR currently with rate controlled on Diltiazem Cont Eliquis 12/24/18: NSR 12/21- Rate controlled, on eliquis. Echo still pending. 12/20/18: Patient in NSR, regular rate - she seems to have converted on the increased dose of diltiazem. ECHO ordered yesterday and still pending. Pulmonary reports that she has a h/o PAF. This seems to be a new dx to our service, but they report that they have it documented in the past. 12/19 new onset AF RVR-on HC dilt CD 120 QD, increased to BID given RVR to 120- 130 QHS, + apix and check TTE 12/15 TSH 0.6 (5) Diastolic congestive heart failure Status: Chronic Response to Treatment: Stable Problem Text: 12/31 - compensated on Bumex and Aldactone 12/21- Patient not showing signs of fluid overload at this time. She has been net negative the last several days. 12/20/18: Patient appears well compensated on exam this morning Patient appears well compensated on HD bumet 2, radu 25 QD 03/2018 TTE c grade 1 kody/mild HHN/no VHD/severe PHTN-Linus (6) Pulmonary hypertension Status: Chronic Response to Treatment: Stable Problem Text: severe, poor px (7) Human metapneumovirus (hMPV) pneumonia Status: Acute Response to Treatment: Improving (8) Chronic steroid use Status: Chronic Response to Treatment: Stable Problem Text: 12/31 Pred 10 po daily HD, currently on 30 mg daily 12/23 Dr. Campa changed to po pred today. methylprednisolone stopped. (9) Type 2 diabetes mellitus Status: Chronic Problem Text: 12/19/18: BG 167 12/18/18: BG 174 (10) Physical deconditioning Status: Chronic Problem Text: 12/30 PT to cont to work with pt, PFS working with pt on d/c planning. : will start PT. 12/17 not safe per PT Plan/VTE VTE Prophylaxis Ordered?: Yes (Lovenox) Plan Anticipated Discharge: Home Disposition Plan for SNF today - On BIPAP therefore may limit options - see above - will ask pulm to help determine BIPAP settings and plan for care home use VS, I&O, 24H, [facility] Vital Signs/I&O Vital Signs Date Time Temp Pulse Resp B/P (MAP) Pulse Ox O2 Delivery O2 Flow Rate FiO2 12/31/18 08:33 2.0 12/31/18 08:29 89 130/70 12/31/18 08:27 97.0 18 95 12/31/18 07:00 Nasal Cannula I&O- Last 24 Hours up to 6 AM 12/31/18 06:00 Intake Total 360 ml Output Total 825 ml Balance -465 ml Laboratory Data 24H LABS Laboratory Tests 2 12/31/18 04:27: Immature Granulocyte % (Auto) 0.7, White Blood Count 16.2H, Red Blood Count 4.99, Hemoglobin 14.4, Hematocrit 46.7, Mean Corpuscular Volume 93.6, Mean Corpuscular Hemoglobin 28.9, Mean Corpuscular Hemoglobin Concent 30.8L, Red Cell Distribution Width 14.1, Platelet Count 175, Neutrophils (%) (Auto) 87.9H, Lymphocytes (%) (Auto) 6.9L, Monocytes (%) (Auto) 4.1, Eosinophils (%) (Auto) 0.3, Basophils (%) (Auto) 0.1, Neutrophils # (Auto) 14.2H, Lymphocytes # (Auto) 1.1L, Monocytes # (Auto) 0.7, Eosinophils # (Auto) 0.1, Basophils # (Auto) 0.0, Nucleated Red Blood Cells % (auto) 0.0, Anion Gap 13, Glomerular Filtration Rate 53.5, Blood Urea Nitrogen 48H, Creatinine 1.05, Sodium Level 138, Potassium Level 4.0, Chloride Level 89L, Carbon Dioxide Level 36H, Calcium Level 9.5 CBC/BMP Laboratory Tests 12/31/18 04:27 Red Blood Count 4.99, Mean Corpuscular Volume 93.6, Mean Corpuscular Hemoglobin 28.9, Mean Corpuscular Hemoglobin Concent 30.8 L, Red Cell Distribution Width 1 4.1, Neutrophils (%) (Auto) 87.9 H, Lymphocytes (%) (Auto) 6.9 L, Monocytes (%) (Auto) 4.1, Eosinophils (%) (Auto) 0.3, Basophils (%) (Auto) 0.1, Neutrophils # (Auto) 14.2 H, Lymphocytes # (Auto) 1.1 L, Monocytes # (Auto) 0.7, Eosinophils # (Auto) 0.1, Basophils # (Auto) 0.0, Calcium Level 9.5 CASSIDY RAHMAN PA-C Dec 31, 2018 09:26
--- NOTE | 2018-12-31 17:11 | DSES ---
DATE OF ADMISSION: 12/15/2018 DATE OF DISCHARGE: DATE OF PRISON FACILITY (SNF): 12/31/2018 BRIEF HISTORY AND PHYSICAL: The patient is an 83-year-old patient of Dr. Cabezas who was recently seen in the office on 12/09/2018, feeling well, but probably exposed to a viral infection that had been going through the family. She presented to the emergency room with shortness of breath, hypoxemia, right upper lobe pneumonia, and acute respiratory failure. PAST MEDICAL HISTORY: Significant for: 1. Severe chronic obstructive pulmonary disease (COPD), oxygen dependent with chronic respiratory failure. 2. Chronic hypoxemic respiratory failure, on chronic steroids. 3. Past history of atrial fibrillation, converted to sinus rhythm. 4. Cor pulmonale. 5. Hyperlipidemia. 6. Hypertension. PERTINENT LABORATORY DATA ON ADMISSION: White count 9.9, hemoglobin 14, platelets 211,000. Sodium 138, potassium 4.1, BUN 24, creatinine 1.0, glucose 172, troponin flat, BNP 757 which is relatively low for her. ABG shows a pH of 7.37, pCO2 of 79, pO2 of 76, 95% on room air. Flu screen was negative. HOSPITAL COURSE: 1. The patient was admitted for a right upper lobe community-acquired pneumonia, started on IV Rocephin and doxycycline. Respiratory panel showed human metapneumovirus and therefore supportive care was provided with treatment of chronic obstructive pulmonary disease (COPD) exacerbation as well using nebulized bronchodilators and IV Solu-Medrol. She required emergent pulmonary consultation for acute on chronic hypercapnic and hypoxemic respiratory failure on 12/18/2018, and at that point, she was placed on bilevel positive airway pressure (BiPAP). Her medical orders for life-sustaining treatment (MOLST) was updated to reflect that she is a DO NOT RESUSCITATE and a DO NOT INTUBATE. She has had slow gradual improvement of her respiratory status with less dyspnea, still on BiPAP when sleeping. She has become slightly more alert and physical therapy is working with her on increasing her activity, but she does require the BiPAP whenever she sleeps or naps. Pulmonary will be asked to revisit to take a look at her BiPAP settings and help us to assure that this is going to be her standard management so as to help facilitate transfer to subacute rehabilitation on the BiPAP. In the meantime, her prednisone dose has been cut down to 30 mg a day. Her home dose is 10 mg a day and we will gradually titrate down to that. She remains on formoterol, Pulmicort and Spiriva as well as an albuterol as needed. She grew Pseudomonas in her sputum and was treated with initially Rocephin and doxycycline on admission but switched to Levaquin. It should be noted there was some discussion about long-term plans regarding her severe COPD and limited ability to ambulate and likelihood of readmission for acute on chronic respiratory failure in the future. There was a family meeting that occurred at this point. Although she is a DO NOT RESUSCITATE (DNR)/DO NOT INTUBATE (DNI), she does not want to be treated and sent to the hospital if she were to become acutely ill again, but she has agreed to continue to follow with palliative care as an outpatient and this should be arranged upon discharge from the longterm. She will follow with the palliative care nurse practitioner as an outpatient. She is not planning to go on hospice as of yet. 2. Atrial fibrillation. Rate remains stable on diltiazem and Eliquis. She seemed to have converted to sinus on the diltiazem and has remained essentially in sinus at this point, but was rapid before the diltiazem was started. She did have an echocardiogram on 12/19/2018 showed normal left ventricular size, wall thickness and global ventricular function, ejection fraction (EF) was 60% to 65%, normal left atrium, atrial septum appears normal without evidence of defect or shunt, normal aortic root, no pericardial effusion, mildly calcific aortic valve, mildly calcified mitral annulus with normal mitral valve and leaflet motion, normal tricuspid valve with the pulmonic valve and proximal pulmonary artery branches not well visualized, inferior vena cava was mildly enlarged, central venous pressure might be indicated. 3. Diastolic congestive heart failure. She is on a Bumex and Aldactone and is compensated on this. 4. Physical deconditioning. She continues with physical therapy and will be made shelter facility (SNF) for subacute rehabilitation at this time. DISPOSITION: She is stable for shelter facility (SNF) status to continue with subacute rehabilitation. DISCHARGE DIAGNOSES: 1. Acute on chronic hypoxemic and hypercapnic respiratory failure. 2. Community-acquired pneumonia. 3. Human metapneumovirus pneumonia. 4. Severe end-stage chronic obstructive pulmonary disease (COPD), oxygen dependent with chronic hypoxia and hypercapnia requiring bilevel positive airway pressure (BiPAP) with sleep and naps. 5. Atrial fibrillation. 6. Diastolic congestive heart failure. 7. Pulmonary hypertension. 8. Chronic steroid use. 9. Diabetes mellitus, type 2. 10. Physical deconditioning.
[2018-12-31] MEDS: ATORVASTATIN 20 MG TAB PO SCH (21:45)
[2019-01-01] VITALS (8 sets, daily range): BP systolic 124–138; BP diastolic 58–72; O2SAT 89–94
[2019-01-01] MEDS: IPRATROPIUM 0.5MG/ALBUTEROL 2.5MG INH SOL UD 3ML (DUONEB)(J7620) NEB SCH ×6 (03:53→23:32)
[2019-01-01] MEDS: SLF 3 ML SYR IV SCH (05:07)
[2019-01-01] MEDS: FORMOTEROL FUMARATE 20 MCG/2 ML INHALATION SOLUTION (PERFOROMIST) INH SCH ×2 (06:59→19:58)
[2019-01-01] MEDS: TIOTROPIUM INHALER/CAPSULE (SPIRIVA) INH SCH (06:59)
[2019-01-01] MEDS: BUDESONIDE 0.5 MG/2 ML INHALATION SUSPENSION INH SCH ×2 (06:59→19:59)
[2019-01-01] MEDS: MIRALAX *UNIT DOSE* 17GM PACKET PO SCH (09:23)
[2019-01-01] MEDS: VITAMIN B COMPLEX/VIT C CAP PO SCH (09:23)
[2019-01-01] MEDS: BUMETANIDE 1 MG TAB PO SCH (09:23)
[2019-01-01] MEDS: predniSONE 10 MG TAB PO SCH (09:23)
[2019-01-01] MEDS: APIXABAN 5 MG TAB (ELIQUIS) PO SCH ×2 (09:24→20:05)
[2019-01-01] MEDS: PANTOPRAZOLE 40MG TAB (PROTONIX) PO SCH (09:24)
[2019-01-01] MEDS: DOCUSATE SODIUM 100 MG CAP PO SCH ×2 (09:24→20:04)
[2019-01-01] MEDS: ASPIRIN 81 MG ENTERIC TAB PO SCH (09:24)
[2019-01-01] MEDS: SPIRONOLACTONE 25 MG TAB PO SCH (09:24)
[2019-01-01] MEDS: ATORVASTATIN 20 MG TAB PO SCH (20:05)
[2019-01-02] MEDS: IPRATROPIUM 0.5MG/ALBUTEROL 2.5MG INH SOL UD 3ML (DUONEB)(J7620) NEB SCH ×5 (03:26→20:00)
[2019-01-02 06:00] VITALS: BP 142/79
[2019-01-02] MEDS: BUDESONIDE 0.5 MG/2 ML INHALATION SUSPENSION INH SCH ×2 (07:31→18:21)
[2019-01-02] MEDS: FORMOTEROL FUMARATE 20 MCG/2 ML INHALATION SOLUTION (PERFOROMIST) INH SCH ×2 (07:31→18:21)
[2019-01-02] MEDS: TIOTROPIUM INHALER/CAPSULE (SPIRIVA) INH SCH (07:31)
[2019-01-02] MEDS: VITAMIN B COMPLEX/VIT C CAP PO SCH (08:57)
[2019-01-02] MEDS: BUMETANIDE 1 MG TAB PO SCH (08:58)
[2019-01-02] MEDS: PANTOPRAZOLE 40MG TAB (PROTONIX) PO SCH (08:58)
[2019-01-02] MEDS: SPIRONOLACTONE 25 MG TAB PO SCH (08:58)
[2019-01-02] MEDS: APIXABAN 5 MG TAB (ELIQUIS) PO SCH ×2 (08:58→22:38)
[2019-01-02] MEDS: predniSONE 10 MG TAB PO SCH (08:58)
[2019-01-02] MEDS: MIRALAX *UNIT DOSE* 17GM PACKET PO SCH (08:59)
[2019-01-02] MEDS: ASPIRIN 81 MG ENTERIC TAB PO SCH (08:59)
[2019-01-02] MEDS: DOCUSATE SODIUM 100 MG CAP PO SCH ×2 (08:59→22:38)
--- NOTE | 2019-01-02 11:35 | CCN ---
DATE OF SERVICE: 01/02/2019 Jocelyne Silva is a patient that had been seen earlier during this admission, however we were asked to offer an opinion on the patient's BiPAP as she is awaiting transfer for rehabilitation. She has been on BiPAP and she states that she feels it is helping. However, the question is she has not formally been tested for sleep apnea and therefore would not qualify to be able to be sent tangela with the BiPAP. She does have a history of acute on chronic respiratory failure as well as end stage lung disease and chronic obstructive pulmonary disease (COPD). She was recently treated for right upper lobe pneumonia, community acquired pneumonia, but is not off antibiotics. According to her medicine progress notes her prednisone is being titrated down. She is currently on Pulmicort, Perforomist, DuoNebs and Spiriva for her breathing. The patient states that her breathing has been good. She states she is doing much better than she was when she initially came in. She denies any recent fevers or chills. She denies any current shortness of breath. She is on chronic supplemental oxygen at 2 liters. She states that she has been wearing BiPAP since it was initiated here in the hospital. She denies ever having worn CPAP or BiPAP at home. She states she has not been worked up for sleep apnea as far as she can recall. PHYSICAL EXAMINATION: VITALS: Temperature is 96.7, pulse 98, respiratory rate 18, blood pressure 120/74, pulse oximetry is 94% on 2 liters. GENERAL: Patient is alert and oriented. She is sitting up in a chair. She speaks in complete sentences. HEENT: Head is normocephalic, atraumatic. Moist mucous membranes. NECK: Supple. No cervical lymphadenopathy. No jugular venous distention (JVD). Trachea is midline. CARDIAC: Regular rate and rhythm, S1 and S2. PULMONARY: The patient has diminished breath sounds in all worrell. She does have prolongation of expiratory phase. No dullness to percussion. ABDOMEN: Positive bowel sounds. Soft, nontender. No rebound or guarding. EXTREMITIES: No clubbing, cyanosis, or edema. ASSESSMENT/PLAN: 1. Chronic respiratory failure/end stage lung disease/chronic obstructive pulmonary disease (COPD). The patient has been on BiPAP 16/03 during this admission. She is in the process of being evaluated for transfer to a rehabilitation facility. She would not qualify for continued BiPAP without an outpatient sleep study, which she has not yet had. The plan therefore will be to stop the BiPAP and leave her on her normal supplemental oxygen for sleep. Plan is to check an ABG in the morning. If the ABG is unremarkable, then once the patient is discharged from rehab then she can be considered for outpatient sleep study if she still wishes for that workup. I have discussed this with the floor nurses as well as with Makenna Emerson from the medicine team. Dr. Jimenez and I will be off call this afternoon. Therefore we will sign the patient out to Dr. Griffith who will be the oncoming medical records specialist for any further BiPAP issues.
[2019-01-02 12:13] LABS: ABG BASE EXCESS 1.1 (-2.0-2.0); ABG HCO3 24.7 MEQ/L (22.0-26.0); ABG PARTIAL PRESSURE CO2 36.1 mmHg (35.0-45.0); ABG PARTIAL PRESSURE O2 136.5 mmHg (75.0-100.0); ABG STANDARD HCO3 25.5 MEQ/L (22.0-26.0); ABG TOTAL CO2 25.8 MEQ/L (23.0-31.0); ABG pH (ARTERIAL) 7.453 UNITS (7.350-7.450)
[2019-01-02] MEDS: ATORVASTATIN 20 MG TAB PO SCH (22:38)
[2019-01-03] MEDS: IPRATROPIUM 0.5MG/ALBUTEROL 2.5MG INH SOL UD 3ML (DUONEB)(J7620) NEB SCH ×7 (00:27→23:45)
[2019-01-03 05:48] LABS: ABG BASE EXCESS 16.7 (-2.0-2.0); ABG HCO3 46.7 MEQ/L (22.0-26.0); ABG O2 SATURATION 97.8 % (95.0-99.0); ABG PARTIAL PRESSURE O2 108.4 mmHg (75.0-100.0); ABG STANDARD HCO3 40.8 MEQ/L (22.0-26.0); ABG TOTAL CO2 49.3 MEQ/L (23.0-31.0); ABG pH (ARTERIAL) 7.361 UNITS (7.350-7.450)
[2019-01-03 05:49] LABS: ABG PARTIAL PRESSURE CO2 84.3 mmHg (35.0-45.0)
[2019-01-03 06:00] VITALS: BP 120/69
[2019-01-03] MEDS: FORMOTEROL FUMARATE 20 MCG/2 ML INHALATION SOLUTION (PERFOROMIST) INH SCH ×2 (07:43→20:41)
[2019-01-03] MEDS: BUDESONIDE 0.5 MG/2 ML INHALATION SUSPENSION INH SCH ×2 (07:43→20:41)
[2019-01-03] MEDS: TIOTROPIUM INHALER/CAPSULE (SPIRIVA) INH SCH (07:44)
[2019-01-03] MEDS: SPIRONOLACTONE 25 MG TAB PO SCH (08:55)
[2019-01-03] MEDS: ASPIRIN 81 MG ENTERIC TAB PO SCH (08:55)
[2019-01-03] MEDS: DOCUSATE SODIUM 100 MG CAP PO SCH ×2 (08:55→21:03)
[2019-01-03] MEDS: VITAMIN B COMPLEX/VIT C CAP PO SCH (08:56)
[2019-01-03] MEDS: MIRALAX *UNIT DOSE* 17GM PACKET PO SCH (08:56)
[2019-01-03] MEDS: APIXABAN 5 MG TAB (ELIQUIS) PO SCH ×2 (08:56→21:03)
[2019-01-03] MEDS: PANTOPRAZOLE 40MG TAB (PROTONIX) PO SCH (08:56)
[2019-01-03] MEDS: BUMETANIDE 1 MG TAB PO SCH (08:56)
[2019-01-03] MEDS: predniSONE 10 MG TAB PO SCH (08:57)
--- NOTE | 2019-01-03 10:45 | IPN ---
DATE: 01/03/2019 The patient was seen and examined this morning during rounds. She was off of BiPAP overnight and she had a repeat arterial blood gas (ABG) drawn this morning. The patient reports that her breathing has been doing well at baseline at this time. She does have occasional cough but it has much improved. She denies any significant wheezing or chest pain. She denies any shortness of breath or dyspnea on exertion. However, she has not been very mobile. She did transfer out of bed into the chair yesterday and felt that she tolerated that well. She denies any abdominal pain. No nausea or vomiting. She reports her lower extremity edema has also been improving since her admission. PHYSICAL EXAMINATION: Temperature is 96.9, pulse 90, respiration and 20, blood pressure 120/69, O2 sat 97% on 2 liters nasal cannula. GENERAL: The patient is awake, alert and oriented. She is lying in bed. Answers questions appropriately. She does have some pursed-lip breathing. HEENT: Normocephalic, atraumatic. Moist mucous membranes. NECK: Supple. No cervical adenopathy. Trachea is midline. CARDIAC: Regular rate and rhythm. Normal S1, S2. Unable to appreciate any murmurs. PULMONARY: Diminished breath sounds bilaterally with prolonged expiration. No wheezes or rhonchi. Some crackles at the bases. ABDOMEN: Soft, nontender, positive bowel sounds. No rebound or guarding. EXTREMITIES: Some evidence of chronic venostasis changes and trace edema bilaterally. LABORATORY DATA: There was no CBC or chemistry drawn today and ABG was drawn which showed a pH 7.361, pCO2 84.3, pO2 108.4. 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 The patient's acute COPD exacerbation was likely in the setting of human Metapneumovirus. She did have sputum which grew Pseudomonas likely colonized at this point. Her CT chest did not show any focal opacities or infiltrates to suggest pneumonia. There was some evidence of a mild interstitial infiltrate along the right major fissure, which may be scarring or possibly secondary to her viral illness. There was significant emphysema throughout the lungs as well as some atelectasis in the bases. The patient was placed on BiPAP for her acute on chronic hypercarbic respiratory failure in the setting of end-stage COPD. She was trialed off of BiPAP overnight and noted to have a worsening hypercarbia on her ABG. She is compensated, however, given the increasing carbon dioxide and her end-stage COPD, the patient will need noninvasive positive pressure ventilation at night going forward. -Will continue with nasal cannula supplementation with a goal O2 sat of 88-92%. -The patient is on prednisone taper. Will decrease from 30 to 20 mg today and eventually taper to her home dose of 10 mg daily. Continue with her home medications including home inhalers and nebulizers. The patient also has a history of cor pulmonale likely in the setting of her severe end-stage lung disease and she is on chronic diuretics and does note improvement in her lower extremity edema. Will continue with home meds and continue to monitor her ins and outs and her weight. The patient's sputum culture did grow Pseudomonas likely colonization. Will follow her up as an outpatient to discuss need for possible inhaled tobramycin. The patient can followup with pulmonary associates as an outpatient once she is discharged to her subacute rehab. CODE STATUS: DO NOT RESUSCITATE, DO NOT INTUBATE. MTDD
[2019-01-03] MEDS: ATORVASTATIN 20 MG TAB PO SCH (21:03)
[2019-01-04] MEDS: IPRATROPIUM 0.5MG/ALBUTEROL 2.5MG INH SOL UD 3ML (DUONEB)(J7620) NEB SCH ×6 (03:22→23:58)
[2019-01-04 06:00] VITALS: BP 130/73
[2019-01-04] MEDS: FORMOTEROL FUMARATE 20 MCG/2 ML INHALATION SOLUTION (PERFOROMIST) INH SCH ×2 (07:28→18:13)
[2019-01-04] MEDS: TIOTROPIUM INHALER/CAPSULE (SPIRIVA) INH SCH (07:28)
[2019-01-04] MEDS: BUDESONIDE 0.5 MG/2 ML INHALATION SUSPENSION INH SCH ×2 (07:28→18:12)
[2019-01-04] MEDS: PANTOPRAZOLE 40MG TAB (PROTONIX) PO SCH (08:33)
[2019-01-04] MEDS: ASPIRIN 81 MG ENTERIC TAB PO SCH (08:33)
[2019-01-04] MEDS: VITAMIN B COMPLEX/VIT C CAP PO SCH (08:33)
[2019-01-04] MEDS: SPIRONOLACTONE 25 MG TAB PO SCH (08:33)
[2019-01-04] MEDS: APIXABAN 5 MG TAB (ELIQUIS) PO SCH ×2 (08:33→20:56)
[2019-01-04] MEDS: DOCUSATE SODIUM 100 MG CAP PO SCH ×2 (08:34→20:56)
[2019-01-04] MEDS: MIRALAX *UNIT DOSE* 17GM PACKET PO SCH (08:35)
[2019-01-04] MEDS: predniSONE 20 MG TAB PO SCH (08:35)
[2019-01-04] MEDS: BUMETANIDE 1 MG TAB PO SCH (08:35)
[2019-01-04] MEDS: ATORVASTATIN 20 MG TAB PO SCH (20:56)
[2019-01-04 22:00] VITALS: BP 122/72
[2019-01-05] MEDS: IPRATROPIUM 0.5MG/ALBUTEROL 2.5MG INH SOL UD 3ML (DUONEB)(J7620) NEB SCH ×6 (04:00→23:56)
[2019-01-05 06:00] VITALS: BP 126/71
[2019-01-05] MEDS: FORMOTEROL FUMARATE 20 MCG/2 ML INHALATION SOLUTION (PERFOROMIST) INH SCH ×2 (07:33→19:26)
[2019-01-05] MEDS: TIOTROPIUM INHALER/CAPSULE (SPIRIVA) INH SCH (07:33)
[2019-01-05] MEDS: BUDESONIDE 0.5 MG/2 ML INHALATION SUSPENSION INH SCH ×2 (07:33→19:26)
[2019-01-05] MEDS: APIXABAN 5 MG TAB (ELIQUIS) PO SCH ×2 (08:22→21:35)
[2019-01-05] MEDS: MIRALAX *UNIT DOSE* 17GM PACKET PO SCH (08:22)
[2019-01-05] MEDS: SPIRONOLACTONE 25 MG TAB PO SCH (08:22)
[2019-01-05] MEDS: predniSONE 20 MG TAB PO SCH (08:22)
[2019-01-05] MEDS: DOCUSATE SODIUM 100 MG CAP PO SCH ×2 (08:22→21:35)
[2019-01-05] MEDS: VITAMIN B COMPLEX/VIT C CAP PO SCH (08:22)
[2019-01-05] MEDS: ASPIRIN 81 MG ENTERIC TAB PO SCH (08:22)
[2019-01-05] MEDS: PANTOPRAZOLE 40MG TAB (PROTONIX) PO SCH (08:22)
[2019-01-05] MEDS: BUMETANIDE 1 MG TAB PO SCH (08:22)
[2019-01-05] MEDS: ATORVASTATIN 20 MG TAB PO SCH (21:35)
[2019-01-06] MEDS: IPRATROPIUM 0.5MG/ALBUTEROL 2.5MG INH SOL UD 3ML (DUONEB)(J7620) NEB SCH ×5 (03:22→20:00)
[2019-01-06 06:00] VITALS: BP 135/70
[2019-01-06] MEDS: FORMOTEROL FUMARATE 20 MCG/2 ML INHALATION SOLUTION (PERFOROMIST) INH SCH ×2 (07:12→20:00)
[2019-01-06] MEDS: BUDESONIDE 0.5 MG/2 ML INHALATION SUSPENSION INH SCH ×2 (07:12→20:00)
[2019-01-06] MEDS: TIOTROPIUM INHALER/CAPSULE (SPIRIVA) INH SCH (07:12)
[2019-01-06] MEDS: BUMETANIDE 1 MG TAB PO SCH (08:38)
[2019-01-06] MEDS: APIXABAN 5 MG TAB (ELIQUIS) PO SCH ×2 (08:38→21:21)
[2019-01-06] MEDS: SPIRONOLACTONE 25 MG TAB PO SCH (08:38)
[2019-01-06] MEDS: ASPIRIN 81 MG ENTERIC TAB PO SCH (08:38)
[2019-01-06] MEDS: MIRALAX *UNIT DOSE* 17GM PACKET PO SCH (08:38)
[2019-01-06] MEDS: predniSONE 20 MG TAB PO SCH (08:38)
[2019-01-06] MEDS: VITAMIN B COMPLEX/VIT C CAP PO SCH (08:38)
[2019-01-06] MEDS: PANTOPRAZOLE 40MG TAB (PROTONIX) PO SCH (08:38)
[2019-01-06] MEDS: DOCUSATE SODIUM 100 MG CAP PO SCH ×2 (08:38→21:21)
[2019-01-06] MEDS: ATORVASTATIN 20 MG TAB PO SCH (21:20)
[2019-01-06 22:00] VITALS: BP 109/64
[2019-01-07] MEDS: IPRATROPIUM 0.5MG/ALBUTEROL 2.5MG INH SOL UD 3ML (DUONEB)(J7620) NEB SCH ×6 (00:33→20:00)
[2019-01-07 06:00] VITALS: BP 112/62
[2019-01-07] MEDS: BUDESONIDE 0.5 MG/2 ML INHALATION SUSPENSION INH SCH ×2 (07:48→20:54)
[2019-01-07] MEDS: TIOTROPIUM INHALER/CAPSULE (SPIRIVA) INH SCH (07:48)
[2019-01-07] MEDS: FORMOTEROL FUMARATE 20 MCG/2 ML INHALATION SOLUTION (PERFOROMIST) INH SCH ×2 (07:48→20:54)
[2019-01-07] MEDS: predniSONE 20 MG TAB PO SCH (09:56)
[2019-01-07] MEDS: DOCUSATE SODIUM 100 MG CAP PO SCH ×2 (09:56→20:56)
[2019-01-07] MEDS: ASPIRIN 81 MG ENTERIC TAB PO SCH (09:56)
[2019-01-07] MEDS: APIXABAN 5 MG TAB (ELIQUIS) PO SCH ×2 (09:56→20:57)
[2019-01-07] MEDS: PANTOPRAZOLE 40MG TAB (PROTONIX) PO SCH (09:57)
[2019-01-07] MEDS: BUMETANIDE 1 MG TAB PO SCH (09:58)
[2019-01-07] MEDS: MIRALAX *UNIT DOSE* 17GM PACKET PO SCH (09:58)
[2019-01-07] MEDS: VITAMIN B COMPLEX/VIT C CAP PO SCH (09:58)
[2019-01-07] MEDS: SPIRONOLACTONE 25 MG TAB PO SCH (09:59)
--- NOTE | 2019-01-07 11:18 | IPNPDOC ---
Subjective Date Seen The patient was seen on 01/07/19. Subjective Chief Complaint/HPI Pt reports no new concerns. PFS and nursing working with Pulm to coordinate d/c to rehab following an overnight in the sleep lab. PT cont to work with the pt, currently 2 assist. General: Denies: Fatigue Constitutional: Denies: Chills, Fever Pulmonary: Reports: Dyspnea, Cough Cardiovascular: Denies: Chest Pain, Palpitations Gastrointestinal: Denies: Nausea, Vomiting Neurological: Reports: Weakness Psych: Reports: Mood Normal Objective Physical Examination General Exam: Positive: Alert, Mild Distress (Pursed lipped breathing - appears slightly dyspneic, pt has just moved from bed to commode when I entered the room.) ENT Exam: Positive: Mucous membr. moist/pink Chest Exam: Positive: Clear to auscultation, Diminished Heart Exam: Positive: Rate Normal, Regular Rhythm, Normal S1, Normal S2 Telemetry: Positive: No significant arrhythmia Abdomen Exam: Positive: Normal bowel sounds, Soft; Negative: Tenderness Extremity Exam: Negative: Edema Neuro Exam: Positive: Normal Speech Psych Exam: Positive: Mood NL Assessment /Plan Problems (1) Chronic respiratory failure with hypoxia and hypercapnia Status: Chronic Response to Treatment: Stable Problem Text: 01/07 Will need sleep lab prior to d/c to rehab, PFS and nursing aware and working to coordinate. 12/31 Now on BIPAP - requires this when sleeping which is most of the day. Will ask pulm to revisit to determine if settings are stable - this will help PFS with plans for subacute rehab (2) COPD with exacerbation Status: Acute Problem Text: 01/04 pred decreased from 30 mg daily to 20 mg daily -takes 10 mg daily at baseline. 12/31 - Cont Prednisone 30 QD Performist, Roseline, Pulmicort, nebs Chronic BIPAP when sleeping 12/30 Resp status slowly making improvements. Along with PT stressed importance of exercising even wihtout PT present. 12/29 -- Though respiratory status improved, she is tachypneic at baseline. Her dyspnea significantly limits her activity. I encouraged her to try sitting upright for brief periods unsupported, or try adding brief periods of any movement while she is in bed. 12/28/18- Patient is comfortable from a respiratory status standpoint, staff thinks she may even be doing a little better. She will continue to work with PT. 12/27/18 - Patient is not really sure what her baseline resp status is, but it sounds like she has chronic dyspnea at baseline and very limited mobility due to Dyspnea. Family meeting today to discuss possible home with Hospice potentially 12/26/18: PFS to schedule family meeting with attending physician and palliative care manager social responsibility for progression to home. Patient wishes to stop PT due to discomfort and dyspnea. 12/25/18: work toward rehab. PFS working on table top bipap. Will need noc ox and ABG 48 hrs prior to DC date. Jair discussion held with patient regarding prognosis and exertion tolerance. Patient wishes to proceed with PT and rehab. 12/24/18: poor exertional tolerance. Patient at end stage COPD. continues to wish treatment and try Bipap. 12/23/18: on 2 LNC which is baseline use at home. Will start OOB and PT. Patient non-compliant with CPAP at home. DIscussed importance of use of CPAP at home, states will utiliza it. Will have PFS touch base with daughter to review CPAP use. 12/22: chronic, resistant to fairly obvious need for cpap. 12/21- No ABG's have been ordered in several days, new ABG showing she a normal pH with decreased PO2, we had her put on her CPAP and after a short amount of time she was doing much better. Even with the CPAP mask she still would desaturate somewhat but looked more comfortable and had easier work of breathing. We will transfer her back to PCU as she is otherwise stable and no longer requiring bilevel therapy. While she is stable right now, there is concern about how compliant she will be with her CPAP at home to prevent her from needing to come back to the hospital. 12/20/18: Patient reports to be feeling at her baseline. She remains on 5L NC, only on 2L bleed in when on pressure support, Levaquin 750mg q 48hs D1 levo 750 IV q48H (prior to this D4 doxy) 12/15 BCX1/2 Acinetobacter sp 12/15 SCX heavy P. aeruginosa . (3) End stage COPD Status: Chronic Problem Text: 12/30 BIPAP except with meals. 12/28- Continues with Bipap use for sleep/naps. 12/27 - On Chronic BIPAP at hs as well as NC during the day Cont Spiriva and Pulmicort 12/22: breaths more easily with cpap on. likely needs this for any hope of maintaining out of hospital chronically 2L NC at home (4) Atrial fibrillation Status: Acute Response to Treatment: Stable Problem Specific Plan: Monitor Clinically Problem Text: 12/31 - remains SR with PACs on Diltiazem On Eliquis 12/27 - NSR currently with rate controlled on Diltiazem Cont Eliquis 12/24/18: NSR 12/21- Rate controlled, on eliquis. Echo still pending. 12/20/18: Patient in NSR, regular rate - she seems to have converted on the increased dose of diltiazem. ECHO ordered yesterday and still pending. Pulmonary reports that she has a h/o PAF. This seems to be a new dx to our service, but they report that they have it documented in the past. 12/19 new onset AF RVR-on HC dilt CD 120 QD, increased to BID given RVR to 120- 130 QHS, + apix and check TTE 12/15 TSH 0.6 (5) Diastolic congestive heart failure Status: Chronic Response to Treatment: Stable Problem Text: 01/07 appears compensated 12/31 - compensated on Bumex and Aldactone 12/21- Patient not showing signs of fluid overload at this time. She has been net negative the last several days. 12/20/18: Patient appears well compensated on exam this morning Patient appears well compensated on HD bumet 2, radu 25 QD 03/2018 TTE c grade 1 kody/mild HHN/no VHD/severe PHTN-Linus (6) Pulmonary hypertension Status: Chronic Response to Treatment: Stable Problem Text: severe, poor px (7) Human metapneumovirus (hMPV) pneumonia Status: Acute Response to Treatment: Improving (8) Chronic steroid use Status: Chronic Response to Treatment: Stable Problem Text: 12/31 Pred 10 po daily HD, currently on 30 mg daily 12/23 Dr. Campa changed to po pred today. methylprednisolone stopped. (9) Type 2 diabetes mellitus Status: Chronic Problem Text: 12/19/18: BG 167 12/18/18: BG 174 (10) Physical deconditioning Status: Chronic Problem Text: 12/30 PT to cont to work with pt, PFS working with pt on d/c planning. : will start PT. 12/17 not safe per PT Plan/VTE VTE Prophylaxis Ordered?: Yes (Lovenox) Plan Anticipated Discharge: Home VS, I&O, 24H, Fishbone Vital Signs/I&O Vital Signs Date Time Temp Pulse Resp B/P (MAP) Pulse Ox O2 Delivery O2 Flow Rate FiO2 01/07/19 09:57 87 130/64 01/07/19 06:00 97.4 18 95 01/06/19 22:00 2.0 01/01/19 05:00 BIPAP/CPAP I&O- Last 24 Hours up to 6 AM 01/07/19 06:00 Intake Total 780 ml Balance 780 ml ALEX BERNAL PA-C Jan 07, 2019 11:17
[2019-01-07] MEDS: ATORVASTATIN 20 MG TAB PO SCH (20:56)
[2019-01-08] MEDS: IPRATROPIUM 0.5MG/ALBUTEROL 2.5MG INH SOL UD 3ML (DUONEB)(J7620) NEB SCH ×7 (03:55→23:23)
[2019-01-08 06:00] VITALS: BP 137/67
[2019-01-08] MEDS: FORMOTEROL FUMARATE 20 MCG/2 ML INHALATION SOLUTION (PERFOROMIST) INH SCH ×2 (07:42→19:25)
[2019-01-08] MEDS: BUDESONIDE 0.5 MG/2 ML INHALATION SUSPENSION INH SCH ×2 (07:43→19:25)
[2019-01-08] MEDS: TIOTROPIUM INHALER/CAPSULE (SPIRIVA) INH SCH (07:43)
[2019-01-08] MEDS: DOCUSATE SODIUM 100 MG CAP PO SCH ×2 (10:28→21:50)
[2019-01-08] MEDS: VITAMIN B COMPLEX/VIT C CAP PO SCH (10:28)
[2019-01-08] MEDS: ASPIRIN 81 MG ENTERIC TAB PO SCH (10:28)
[2019-01-08] MEDS: MIRALAX *UNIT DOSE* 17GM PACKET PO SCH (10:28)
[2019-01-08] MEDS: PANTOPRAZOLE 40MG TAB (PROTONIX) PO SCH (10:28)
[2019-01-08] MEDS: SPIRONOLACTONE 25 MG TAB PO SCH (10:29)
[2019-01-08] MEDS: APIXABAN 5 MG TAB (ELIQUIS) PO SCH ×2 (10:29→21:50)
[2019-01-08] MEDS: BUMETANIDE 1 MG TAB PO SCH (10:29)
[2019-01-08] MEDS: predniSONE 20 MG TAB PO SCH (10:29)
[2019-01-08] MEDS: ATORVASTATIN 20 MG TAB PO SCH (21:50)
[2019-01-09] MEDS: IPRATROPIUM 0.5MG/ALBUTEROL 2.5MG INH SOL UD 3ML (DUONEB)(J7620) NEB SCH ×3 (04:22→11:22)
[2019-01-09] MEDS: BUDESONIDE 0.5 MG/2 ML INHALATION SUSPENSION INH SCH (07:33)
[2019-01-09] MEDS: TIOTROPIUM INHALER/CAPSULE (SPIRIVA) INH SCH (07:33)
[2019-01-09] MEDS: FORMOTEROL FUMARATE 20 MCG/2 ML INHALATION SOLUTION (PERFOROMIST) INH SCH (07:33)
[2019-01-09] MEDS: DOCUSATE SODIUM 100 MG CAP PO SCH (09:21)
[2019-01-09] MEDS: ASPIRIN 81 MG ENTERIC TAB PO SCH (09:21)
[2019-01-09] MEDS: APIXABAN 5 MG TAB (ELIQUIS) PO SCH (09:21)
[2019-01-09] MEDS: BUMETANIDE 1 MG TAB PO SCH (09:21)
[2019-01-09] MEDS: predniSONE 20 MG TAB PO SCH (09:21)
[2019-01-09] MEDS: PANTOPRAZOLE 40MG TAB (PROTONIX) PO SCH (09:21)
[2019-01-09] MEDS: VITAMIN B COMPLEX/VIT C CAP PO SCH (09:21)
[2019-01-09] MEDS: SPIRONOLACTONE 25 MG TAB PO SCH (09:21)
[2019-01-09 09:24] VITALS: BP 136/72
[2019-01-09] MEDS: MIRALAX *UNIT DOSE* 17GM PACKET PO SCH (09:24)
[2019-01-09] MEDS ORDERED: TIOT18INH INH (09:41)
[2019-01-09] MEDS ORDERED: ELIQ5TAB PO (09:41)
[2019-01-09] MEDS ORDERED: IPRA0.00 NEB (09:41)
[2019-01-09] MEDS ORDERED: PERF20NE2 INH (09:41)
[2019-01-09] MEDS ORDERED: ALB2.5NEB NEB (09:41)
[2019-01-09] MEDS ORDERED: BUDE0.5S6 INH (09:41)
[2019-01-09] MEDS ORDERED: PEG1POW PO (09:41)
[2019-01-09] MEDS ORDERED: COLA100C5 PO (09:41)
[2019-01-09] MEDS ORDERED: BUME1TAB3 PO (09:41)
== END 2019-01-09 12:06 | DRG 193 ==
LOC: M ED 15:58 → M ED INP 19:06 → M PCU 20:43 → M ICU 12-17 21:55 → M PCU 12-24 15:06 → M MSPAV 01-01 14:40
PROVIDERS: ADMIT Family Medicine; ATTEND Family Medicine
DX: J12.3 Human metapneumovirus pneumonia (principal); J96.21 Acute and chronic respiratory failure with hypoxia; J96.22 Acute and chronic respiratory failure with hypercapnia; J44.0 Chronic obstructive pulmonary disease with (acute) lower respiratory infection; J44.1 Chronic obstructive pulmonary disease with (acute) exacerbation; I50.32 Chronic diastolic (congestive) heart failure; I11.0 Hypertensive heart disease with heart failure; F41.9 Anxiety disorder, unspecified; E78.5 Hyperlipidemia, unspecified; I48.0 Paroxysmal atrial fibrillation; E11.9 Type 2 diabetes mellitus without complications; I27.29 Other secondary pulmonary hypertension; Z66 Do not resuscitate; Z99.81 Dependence on supplemental oxygen; Z79.52 Long term (current) use of systemic steroids; Z79.82 Long term (current) use of aspirin; Z79.899 Other long term (current) drug therapy; Z87.891 Personal history of nicotine dependence

== ENCOUNTER → 2019-03-24 | Outpatient (REF) | payer MEDICARE, MEDICAID ==
[~2019-03-24] MED LIST changes: +ACET-683 PO; +ALB2.5NEB NEB; +ARTI99.0 OU; +ATOR40TA75 PO; +B-COTAB10 PO; +CALC500T44 PO; +CALC600T31 PO; +COLA100C5 PO; +DOCU100C17 PO; +ELIQ5TAB PO; +IPRA0.00 INH; +MEDREC COMMENT; +MIRA3350 PO; +MUCI600T31 PO; +OMEP20CA4 PO; +PEG1POW PO; +TYLE325T5 PO; +VITATAB11 PO; +[UNRECOGNIZED DRUG - CODE] PO
[2019-03-24 17:30] LABS: BASO % 0.3 % (0.0-1.0); EOS # 0.1 10^3/uL (0.0-0.50); EOS % 0.7 % (0.0-3.0); HEMATOCRIT 41.8 % (36.0-47.0); HEMOGLOBIN 12.9 g/dl (12.0-15.5); LYMPH # 1.2 10^3/uL (1.5-4.5); LYMPH % 7.8 % (24.0-44.0); MEAN CORPUSCULAR HEMOGLOBIN 29.3 pg (27.0-33.0); MEAN CORPUSCULAR HGB CONC 30.9 g/dl (32.0-36.5); MONO # 0.7 10^3/uL (0.0-0.8); MONO % 4.9 % (0.0-5.0); NEUTROPHILS # 12.5 10^3/uL (1.8-7.7); NEUTROPHILS % 85.5 % (36.0-66.0); PLATELET COUNT, AUTOMATED 266 10^3/uL (150-450); WHITE BLOOD COUNT 14.7 10^3/uL (4.0-10.0)
[2019-03-24 17:35] LABS: ALBUMIN 3.2 GM/DL (3.2-5.2); BILIRUBIN,TOTAL 0.2 MG/DL (0.2-1.0); CALCIUM LEVEL 9.1 MG/DL (8.8-10.2); CREATININE FOR GFR 1.01 MG/DL (0.55-1.30); POTASSIUM SERUM 4.2 MEQ/L (3.5-5.1); TOTAL PROTEIN 6.4 GM/DL (6.4-8.2)
[2019-03-24 18:33] LABS: HEMOGLOBIN A1c 7.7 %
== END ==
LOC: M SFHCCLAY 11:20
PROVIDERS: ATTEND Family Medicine
DX: R60.0 Localized edema (principal); E11.9 Type 2 diabetes mellitus without complications; Z79.01 Long term (current) use of anticoagulants
CPT/HCPCS: 80053; 83036; 85025; G0463

== ENCOUNTER 2019-04-20 14:11 | Inpatient (IN) | payer MEDICARE, MEDICAID ==
[~2019-04-20] VITALS: Ht 160 cm; Wt 79.5 kg
[~2019-04-20 14:11] MED LIST changes: -ACET-683 PO; -B-COTAB10 PO; -CALC500T44 PO; -DOCU100C17 PO; -MEDREC COMMENT; -MIRA3350 PO; -OMEP20CA4 PO
[2019-04-20 14:53] LABS: BASO % 0.1 % (0.0-1.0); EOS % 0.1 % (0.0-3.0); HEMATOCRIT 41.7 % (36.0-47.0); HEMOGLOBIN 12.5 g/dl (12.0-15.5); LYMPH # 0.4 10^3/uL (1.5-4.5); LYMPH % 2.9 % (24.0-44.0); MEAN CORPUSCULAR HEMOGLOBIN 28.8 pg (27.0-33.0); MEAN CORPUSCULAR VOLUME 96.1 fl (80.0-96.0); MONO # 0.8 10^3/uL (0.0-0.8); MONO % 5.1 % (0.0-5.0); NEUTROPHILS # 13.7 10^3/uL (1.8-7.7); NEUTROPHILS % 91.3 % (36.0-66.0); PLATELET COUNT, AUTOMATED 229 10^3/uL (150-450); RED BLOOD COUNT 4.34 10^6/uL (4.00-5.40)
[2019-04-20] MEDS ORDERED: ALBUTEROL SULFATE 2.5 MG/0.5 ML INH NEB SOLN INH ONE (15:00)
[2019-04-20] MEDS ORDERED: dexameTHASONE 20 MG/5 ML VIAL (J1100) IV ONE (15:00)
[2019-04-20] MEDS ORDERED: IPRATROPIUM 0.5MG/ALBUTEROL 2.5MG INH SOL UD 3ML (DUONEB)(J7620) NEB ONE (15:00)
[2019-04-20 15:25] LABS: INR 1.31; PARTIAL THROMBOPLASTIN TIME 26.9 SECONDS (25.0-38.4)
[2019-04-20 15:26] LABS: BILIRUBIN,DIRECT 0.1 MG/DL (0.0-0.2); BILIRUBIN,TOTAL 0.3 MG/DL (0.2-1.0); CALCIUM LEVEL 9.1 MG/DL (8.8-10.2); CK-MB VALUE MASS 5.7 NG/ML (<3.6); CREATININE FOR GFR 1.09 MG/DL (0.55-1.30); GLOMERULAR FILTRATION RATE 51.3 (>32); MB/CK RELATIVE INDEX 9.19 (< OR =4); POTASSIUM SERUM 5.2 MEQ/L (3.5-5.1); TOTAL PROTEIN 6.9 GM/DL (6.4-8.2); TROPONIN I 0.03 NG/ML (< 0.10)
[2019-04-20 15:28] LABS: C REACTIVE PROTEIN QUANTITATIV 6.36 MG/DL (0.00-0.30); CK-MB VALUE MASS 5.4 NG/ML (<3.6); MB/CK RELATIVE INDEX 9.15 (< OR =4); TROPONIN I 0.03 NG/ML (< 0.10)
[2019-04-20] MEDS ORDERED: MEROPENEM INJ 1 GM in APPROPRIATE DILUENT 1 EA IV ONE (16:45)
[2019-04-20] MEDS ORDERED: INCR1INH INH (17:09)
[2019-04-20] MEDS ORDERED: TIOT18INH INH (17:09)
[2019-04-20] MEDS ORDERED: ACET-683 PO (17:09)
[2019-04-20] MEDS ORDERED: ELIQ5TAB PO (17:09)
[2019-04-20] MEDS ORDERED: BUME1TAB3 PO (17:09)
[2019-04-20] MEDS ORDERED: B-COTAB10 PO (17:09)
[2019-04-20] MEDS ORDERED: OMEP20CA4 PO (17:09)
[2019-04-20] MEDS ORDERED: CALC500T44 PO (17:09)
[2019-04-20] MEDS ORDERED: BREO1INH3 INH (17:09)
[2019-04-20] MEDS ORDERED: MUCI600T31 PO (17:11)
[2019-04-20] MEDS ORDERED: IPRA0.00 INH (17:11)
[2019-04-20] MEDS ORDERED: DOCU100C17 PO (17:12)
[2019-04-20] MEDS ORDERED: MIRA3350 PO (17:12)
[2019-04-20] MEDS ORDERED: MEDREC COMMENT (17:14)
[2019-04-20] MEDS ORDERED: guaiFENesin ER 600 MG TAB PO PRN (18:15)
[2019-04-20] MEDS ORDERED: IPRATROPIUM 0.5MG/ALBUTEROL 2.5MG INH SOL UD 3ML (DUONEB)(J7620) NEB PRN (18:15)
[2019-04-20] MEDS ORDERED: POLYVINYL ALCOHOL OPHTH SOLN 15 ML(LIQUITEARS) OU PRN (18:15)
[2019-04-20] MEDS ORDERED: DEXTROSE 50% 50 ML SYRINGE IV PRN (18:15)
[2019-04-20] MEDS ORDERED: GLUCOSE 4 GM CHEW TABLET PO PRN (18:15)
[2019-04-20] MEDS ORDERED: GLUCAGON FOR INJ 1 MG VIAL (J1610) SC PRN (18:15)
[2019-04-20] MEDS ORDERED: MIRALAX *UNIT DOSE* 17GM PACKET PO PRN (18:15)
[2019-04-20] MEDS ORDERED: ACETAMINOPHEN 500 MG TAB PO PRN (18:15)
[2019-04-20] MEDS ORDERED: FUROSEMIDE 40 MG/4 ML VIAL (J1940) IV ONE (19:00)
--- NOTE | 2019-04-20 19:58 | ECGEPIP ---
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
[2019-04-20] MEDS: IPRATROPIUM 0.5MG/ALBUTEROL 2.5MG INH SOL UD 3ML (DUONEB)(J7620) NEB SCH (20:00)
[2019-04-20] MEDS ORDERED: CEFTAROLINE FOSAMIL 400 MG in D5W MINI-BAG PLUS 50 ML IV SCH (21:00)
[2019-04-20] MEDS: HumaLOG INSULIN (NovoLOG) PER UNIT SC SCH (21:00)
[2019-04-20 21:31] VITALS: BP 161/77
[2019-04-20 22:00] VITALS: BP 153/76
[2019-04-20 23:00] VITALS: BP 137/80
[2019-04-20] MEDS: APIXABAN 5 MG TAB (ELIQUIS) PO SCH (23:04)
[2019-04-20] MEDS: ATORVASTATIN 20 MG TAB PO SCH (23:04)
[2019-04-20] MEDS: methylPREDNISolone INJ 125 MG/2 ML VIAL (J2930) IV SCH (23:07)
[2019-04-20] MEDS: CEFTAROLINE FOSAMIL 400 MG in D5W MINI-BAG PLUS 50 ML IV SCH (23:54)
[2019-04-21] VITALS (17 sets, daily range): BP systolic 115–159; BP diastolic 56–91
[2019-04-21] MEDS: IPRATROPIUM 0.5MG/ALBUTEROL 2.5MG INH SOL UD 3ML (DUONEB)(J7620) NEB SCH ×4 (02:07→20:08)
[2019-04-21 04:43] LABS: HEMATOCRIT 40.3 % (36.0-47.0); HEMOGLOBIN 12.3 g/dl (12.0-15.5); MEAN CORPUSCULAR HGB CONC 30.5 g/dl (32.0-36.5); PLATELET COUNT, AUTOMATED 202 10^3/uL (150-450); RED BLOOD COUNT 4.24 10^6/uL (4.00-5.40); WHITE BLOOD COUNT 10.8 10^3/uL (4.0-10.0)
[2019-04-21 04:48] LABS: CALCIUM LEVEL 8.9 MG/DL (8.8-10.2); CREATININE FOR GFR 0.98 MG/DL (0.55-1.30); POTASSIUM SERUM 4.7 MEQ/L (3.5-5.1)
[2019-04-21 05:52] LABS: ABG BASE EXCESS 16.3 (-2.0-2.0); ABG HCO3 45.3 MEQ/L (22.0-26.0); ABG O2 SATURATION 93.1 % (95.0-99.0); ABG PARTIAL PRESSURE O2 69.4 mmHg (75.0-100.0); ABG STANDARD HCO3 40.1 MEQ/L (22.0-26.0); ABG TOTAL CO2 47.7 MEQ/L (23.0-31.0); ABG pH (ARTERIAL) 7.375 UNITS (7.350-7.450)
[2019-04-21 05:53] LABS: ABG PARTIAL PRESSURE CO2 79.2 mmHg (35.0-45.0)
--- NOTE | 2019-04-21 07:15 | REP ---
CHEST, SINGLE VIEW: COMPARISON: 12/25/2018 as well as other prior exams. Scattered fibrotic scarring which appears relatively stable bilaterally. No definite acute infiltrate is seen. There is chronic blunting of the right costophrenic angle. The heart does not appear to be significantly enlarged. The mediastinal silhouette is unchanged. IMPRESSION: Stable chronic findings without evidence of acute infiltrate. Electronically Signed by Cayetano Okeefe MD 04/21/2019 09:13 A
[2019-04-21] MEDS: methylPREDNISolone INJ 125 MG/2 ML VIAL (J2930) IV SCH ×2 (08:28→21:17)
[2019-04-21] MEDS: HumaLOG INSULIN (NovoLOG) PER UNIT SC SCH ×4 (08:28→21:00)
--- NOTE | 2019-04-21 08:28 | IPNPDOC ---
Subjective Date Seen The patient was seen on 04/21/19. Subjective Chief Complaint/HPI acute on chronic respiratory failure with hypercapnia. Events since last encounter Admitted overnight with respiratory failure. Bipap continued overnight. There is some concern by nursing staff about tubing for oxygen bleed in, malfunctioning. Sats maintained in mid 94% range overnight. ABG this am with Normal PH and hypercapnia. New orders entered to keep sats 88-92%. reviewed with nursing staff. patient states symptoms improved since last night. Slept well with addition of Bipap. Received Lasix 40 mg IV x 1 with 1+ liter of fluid diuresed. Constitutional: Denies: Chills, Fever, Night Sweats Pulmonary: Reports: Dyspnea, Cough Cardiovascular: Denies: Chest Pain, Palpitations, Orthopnea, Paroxysmal Noc. Dyspnea, Lt Headedness Gastrointestinal: Denies: Nausea, Vomiting, Abdominal Pain, Diarrhea, Constipation Genitourinary: Denies: Dysuria, Frequency, Incontinence, Retention Psych: Reports: Mood Normal; Denies: Depression, Memory Issues Objective Physical Examination General Exam: Positive: Alert, Cooperative, No Acute Distress Neck Exam: Positive: Supple; Negative: JVD, thyromegaly Chest Exam: Positive: Diminished Heart Exam: Positive: Rate Normal, Regular Rhythm, Normal S1, Normal S2; Negative: Murmurs, Rubs Telemetry: Positive: No significant arrhythmia Abdomen Exam: Positive: Normal bowel sounds, Soft; Negative: Tenderness Extremity Exam: Positive: Edema (2+ BLE) Skin Exam: Positive: Other skin issue (ecchymosis to BUE. Erythema to RIGHT forearm under iV sire, mildly swollen, non-tender normal radial pulse) Psych Exam: Positive: Mental status NL Assessment /Plan Problems (1) Chronic respiratory failure with hypoxia and hypercapnia Status: Acute Problem Text: D2 meropenem 04/20 BCX2 P 04/20 SCX P Continue Bipap at hours of sleep including naps. ABG reviewed this am. Keep sats 88-92%. Sputum cx pending. Received meropenem x 1 dose and currently on Ceftaroline as ordered by ED providers. Hx of pseudomonas in sputum. 11/2018 SCX heavy Pseudomonas (2) Diastolic congestive heart failure Status: Chronic Problem Text: acute on chronic. Diuresed well with Lasix overnight. will order another dose of Lasix 40 mg IV, monitor I/O and daily weights. (3) Type 2 diabetes mellitus Status: Chronic Problem Text: RISS per protocol. (4) Pulmonary hypertension Status: Chronic (5) Atrial fibrillation Status: Chronic Problem Text: home dosing eliquis continued. Plan/VTE VTE Prophylaxis Ordered?: Yes VS, I&O, 24H, Fishbone Vital Signs/I&O Vital Signs Date Time Temp Pulse Resp B/P (MAP) Pulse Ox O2 Delivery O2 Flow Rate FiO2 04/21/19 07:23 90 14 04/21/19 07:00 115/56 (75) 93 5.0 04/21/19 04:00 97.5 04/20/19 18:17 NIPPV (BIPAP/CPAP) I&O- Last 24 Hours up to 6 AM 04/21/19 06:00 Intake Total 340 ml Output Total 1775 ml Balance -1435 ml Laboratory Data 24H LABS Laboratory Tests 2 04/20/19 14:41: Total Creatine Kinase 59, Creatine Kinase MB 5.4H, Creatine Kinase MB Relative Index 9.15H, Troponin I 0.03, C-Reactive Protein, Quantitative 6.36H, EC-Lqz-D-Type Natriuretic Peptide 939H 04/20/19 14:42: Total Creatine Kinase 62, Creatine Kinase MB 5.7H, Creatine Kinase MB Relative Index 9.19H, Troponin I 0.03, Immature Granulocyte % (Auto) 0.5, White Blood Count 15.0H, Red Blood Count 4.34, Hemoglobin 12.5, Hematocrit 41.7, Mean Corpuscular Volume 96.1H, Mean Corpuscular Hemoglobin 28.8, Mean Corpuscular Hemoglobin Concent 30.0L, Red Cell Distribution Width 14.8H, Platelet Count 229, Neutrophils (%) (Auto) 91.3H, Lymphocytes (%) (Auto) 2.9L, Monocytes (%) (Auto) 5.1H, Eosinophils (%) (Auto) 0.1, Basophils (%) (Auto) 0.1, Neutrophils # (Auto) 13.7H, Lymphocytes # (Auto) 0.4L, Monocytes # (Auto) 0.8, Eosinophils # (Auto) 0.0, Basophils # (Auto) 0.0, Nucleated Red Blood Cells % (auto) 0.0, Prothrombin Time 16.0H, Prothromb Time International Ratio 1.31, Activated Partial Thromboplast Time 26.9, Anion Gap 3L, Glomerular Filtration Rate 51.3, Calcium Level 9.1, Aspartate Amino Transf (AST/SGOT) 26, Alanine Aminotransferase (ALT/SGPT) 66, Alkaline Phosphatase 140H, Total Bilirubin 0.3, Direct Bilirubin 0.1, Total Protein 6.9, Albumin 3.0L, Albumin/Globulin Ratio 0.77L 04/20/19 15:09: POC pH (Misc Panel) 7.245*L, POC Base Excess (Misc Panel) 13.0H, POC Saturated Percent O2 (Misc) 95, POC pO2 (Misc Panel) 95.0, POC pCO2 (Misc Panel) 92.2*H, POC HCO3 (Misc Panel) 40.0H, POC Total CO2 (Misc Panel) 43.0H 04/20/19 22:40: Bedside Glucose (Misc Panel) 197H 04/21/19 04:02: Nucleated Red Blood Cells % (auto) 0.0, Anion Gap 2L, Glomerular Filtration Rate 58.0, Blood Urea Nitrogen 21H, Creatinine 0.98, Sodium Level 139, Potassium Level 4.7, Chloride Level 93L, Carbon Dioxide Level 44H, Calcium Level 8.9 04/21/19 05:38: Blood Gas Bicarbonate Standard 40.1H, Arterial Blood pH 7.375, Arterial Blood Partial Pressure CO2 79.2*H, Arterial Blood Partial Pressure O2 69.4L, Arterial Blood Total CO2 47.7H, Arterial Blood HCO3 45.3H, Arterial Blood Base Excess 16.3H, Arterial Blood Oxygen Saturation 93.1L CBC/BMP Laboratory Tests 04/20/19 14:42 Red Blood Count 4.34, Mean Corpuscular Volume 96.1 H, Mean Corpuscular Hemoglobin 28.8, Mean Corpuscular Hemoglobin Concent 30.0 L, Red Cell Distribution Width 14.8 H, Neutrophils (%) (Auto) 91.3 H, Lymphocytes (%) (Auto) 2.9 L, Monocytes (%) (Auto) 5.1 H, Eosinophils (%) (Auto) 0.1, Basophils (%) (Auto) 0.1, Neutrophils # (Auto) 13.7 H, Lymphocytes # (Auto) 0.4 L, Monocytes # (Auto) 0.8, Eosinophils # (Auto) 0.0, Basophils # (Auto) 0.0 04/21/19 04:02 Red Blood Count 4.24, Mean Corpuscular Volume 95.0, Mean Corpuscular Hemoglobin 29.0, Mean Corpuscular Hemoglobin Concent 30.5 L, Red Cell Distribution Width 14.7 H, Calcium Level 8.9 Microbiology Microbiology 04/20/19 Blood Culture, Received Pending 04/20/19 Blood Culture, Received Pending 04/20/19 Gram Stain - Final, Resulted 04/20/19 Sputum Culture, Resulted Pending Zabrina Abbott Apr 21, 2019 08:28 Baltazar Panda M.D. Apr 21, 2019 16:16
[2019-04-21] MEDS: SPIRONOLACTONE 25 MG TAB PO SCH (08:29)
[2019-04-21] MEDS: ASPIRIN 81 MG ENTERIC TAB PO SCH (08:29)
[2019-04-21] MEDS: APIXABAN 5 MG TAB (ELIQUIS) PO SCH ×2 (08:29→21:16)
[2019-04-21] MEDS: OMEPRAZOLE 20 MG CAP PO SCH (08:29)
[2019-04-21] MEDS ORDERED: FUROSEMIDE 40 MG/4 ML VIAL (J1940) IV ONE (09:00)
--- NOTE | 2019-04-21 10:02 | HPE ---
DATE OF ADMISSION: 04/20/2019 PRIMARY CARE PROVIDER: Dr. Onel Cisse BUTTON SPINDLER: Dr. Leo CHIEF COMPLAINT: Acute on chronic respiratory failure. The patient is being admitted in respiratory failure. She is currently not very arousable, but nursing staff tells me that just a short while ago she was answering questions and cooperating and they think that she is just very fatigued. She has a history of severe chronic obstructive pulmonary disease (COPD) and is followed by Dr. Leo at the [facility]. She has very severe COPD with hypercapnia secondary to severe emphysema. I do not have any recent spirometric data to quantitate this but by Dr. Leo's description from 03/13/2018 office visit her respiratory situation is "very severe." She has a DO NOT INTUBATE status. She has atrial fibrillation and is followed by Dr. Barriga for this. She had an echocardiogram done in November 2018, ejection fraction was 60 to 65%. Left atrium only 33 mm. Mild pulmonary hypertension noted. OTHER PAST MEDICAL HISTORY: 1. Hypertension. 2. Hyperlipidemia. 3. Cor pulmonale. 4. Right upper lobe community-acquired pneumonia in December 2018. Respiratory panel showed human metapneumovirus. She has a history of type 2 diabetes, probably from steroids. CODE STATUS: DO NOT RESUSCITATE, DO NOT INTUBATE. A copy of that was scanned into the record in November 2018. SOCIAL HISTORY: Quit smoking within the last few years. No alcohol intake. Retired. Unmarried. ALLERGIES: None. REVIEW OF SYSTEMS: Should note that she was in [facility] in [place] from 01/09/2019 to 03/19/2019. She has been in [facility] in August 2018 for generalized weakness and chronic respiratory failure as well. The rest of the review of systems was unobtainable as the patient is sleeping and not arousable. MEDICATIONS: - prednisone 10 mg daily - omeprazole 20 mg daily - Eliquis 5 mg twice a day - spironolactone 25 mg daily - diltiazem XT 120 mg daily - Bumex 2 mg daily - Lipitor 40 mg daily - aspirin 81 mg daily - budesonide nebulized daily - DuoNeb nebulized every 4 hours - Spiriva once a day - formoterol 20 mcg nebulized twice a day - Mucinex as needed - calcium with vitamin D - oxygen at 2 to 3 liters nasal cannula with noninvasive ventilatory support at night for 3 to 6 hours - albuterol 1.25 mg nebulized as needed PHYSICAL EXAMINATION: VITAL SIGNS: Per flow sheet. GENERAL APPEARANCE: Elderly, lying in bed. She has a BiPAP mask on. She is not responding to questions or any verbal stimulation, but nursing staff told me that just a short while previously she was following commands and answering questions. HEENT: Unremarkable except for Cushingoid appearance. LUNGS: Decreased breath sounds diffusely. HEART: Regular rhythm. ABDOMEN: Soft, nontender. No masses. EXTREMITIES: Trace peripheral edema. NEUROLOGIC: Not testable. LABORATORIES: White count 15,000, hemoglobin 12.5, platelets 229. Sodium 137, potassium 5.2, BUN 19, creatinine 1.0, glucose 236, hemoglobin A1/c in March 2019 was 7.7. ABG today was 7.24/95/95. Chest x-ray has not been interpreted yet, although it was done 4 hours ago, it looked clear, just an AP film. IMPRESSION: 1. Acute on chronic respiratory failure. The patient is being admitted to the intensive care unit (ICU). Consult pulmonary. I do not think that she needs to be seen tonight unless her condition deteriorates further. She is DO NOT RESUSCITATE, DO NOT INTUBATE. Communicated with Dr. Jimenez about this. Empiric steroids have been ordered. Chest x-ray is clear. I am going to put her on empiric antibiotics despite this because she has had bacterial growth on sputum samples on the last three admissions, including pseudomonas Acinetobacter, and H influenzae with staphylococcus. At this point, I am just putting her on ceftaroline depending results of repeat sputum culture. 2. Diabetes. Sliding scale insulin coverage ordered. 3. Hypertension. Continue diltiazem. 4. Hyperlipidemia. Continue atorvastatin. 5. Cor pulmonale. I am going to give her a dose of intravenous Lasix and I think that we can decide on her diuresis needs in the morning.
[2019-04-21] MEDS: CEFTAROLINE FOSAMIL 400 MG in D5W MINI-BAG PLUS 50 ML IV SCH (11:51)
[2019-04-21] MEDS: MEROPENEM INJ 1 GM in APPROPRIATE DILUENT 1 EA IV SCH (17:38)
[2019-04-21] MEDS: ATORVASTATIN 20 MG TAB PO SCH (21:16)
[2019-04-22] MEDS: IPRATROPIUM 0.5MG/ALBUTEROL 2.5MG INH SOL UD 3ML (DUONEB)(J7620) NEB SCH ×4 (03:13→19:48)
[2019-04-22] MEDS: MEROPENEM INJ 1 GM in APPROPRIATE DILUENT 1 EA IV SCH ×2 (05:10→17:09)
[2019-04-22 05:30] VITALS: BP 166/80
[2019-04-22 06:50] LABS: HEMATOCRIT 41.1 % (36.0-47.0); HEMOGLOBIN 12.6 g/dl (12.0-15.5); MEAN CORPUSCULAR HEMOGLOBIN 29.5 pg (27.0-33.0); MEAN CORPUSCULAR HGB CONC 30.7 g/dl (32.0-36.5); MEAN CORPUSCULAR VOLUME 96.3 fl (80.0-96.0); PLATELET COUNT, AUTOMATED 217 10^3/uL (150-450); RED BLOOD COUNT 4.27 10^6/uL (4.00-5.40); WHITE BLOOD COUNT 12.1 10^3/uL (4.0-10.0)
[2019-04-22 07:07] LABS: BLOOD UREA NITROGEN 35 MG/DL (7-18); CALCIUM LEVEL 9.4 MG/DL (8.8-10.2); CARBON DIOXIDE LEVEL 45 MEQ/L (21-32); CHLORIDE LEVEL 93 MEQ/L (98-107); CREATININE FOR GFR 1.09 MG/DL (0.55-1.30); GLOMERULAR FILTRATION RATE 51.3 (>32); GLUCOSE, FASTING 229 MG/DL (70-100); POTASSIUM SERUM 4.3 MEQ/L (3.5-5.1); SODIUM LEVEL 137 MEQ/L (136-145)
[2019-04-22] MEDS: OMEPRAZOLE 20 MG CAP PO SCH (08:31)
[2019-04-22] MEDS: HumaLOG INSULIN (NovoLOG) PER UNIT SC SCH ×4 (08:31→20:49)
[2019-04-22] MEDS: ASPIRIN 81 MG ENTERIC TAB PO SCH (08:31)
[2019-04-22] MEDS: SPIRONOLACTONE 25 MG TAB PO SCH (08:31)
[2019-04-22] MEDS: APIXABAN 5 MG TAB (ELIQUIS) PO SCH ×2 (08:31→20:48)
[2019-04-22] MEDS: methylPREDNISolone INJ 125 MG/2 ML VIAL (J2930) IV SCH ×2 (08:31→20:49)
--- NOTE | 2019-04-22 12:51 | IPNPDOC ---
Subjective Date Seen The patient was seen on 04/22/19. Subjective Chief Complaint/HPI COPD Events since last encounter Patient notes breathing is at baseline. Using 2 LNC during day and Table top bipap at sleep hours. Admits to continuing weakness. Constitutional: Denies: Chills, Fever, Night Sweats Pulmonary: Reports: Dyspnea, Cough Cardiovascular: Denies: Chest Pain, Palpitations, Orthopnea, Paroxysmal Noc. Dyspnea, Lt Headedness Genitourinary: Denies: Dysuria, Frequency, Incontinence, Retention Psych: Reports: Mood Normal; Denies: Depression, Memory Issues Objective Physical Examination General Exam: Positive: Alert, Cooperative, No Acute Distress Neck Exam: Positive: Supple; Negative: JVD, thyromegaly Chest Exam: Positive: Diminished Heart Exam: Positive: Rate Normal, Regular Rhythm, Normal S1, Normal S2; Negative: Murmurs, Rubs Telemetry: Positive: No significant arrhythmia Abdomen Exam: Positive: Normal bowel sounds, Soft; Negative: Tenderness Extremity Exam: Positive: Edema (2+ BLE) Skin Exam: Positive: Other skin issue (ecchymosis to BUE. Erythema to RIGHT forearm under iV sire, mildly swollen, non-tender normal radial pulse) Psych Exam: Positive: Mental status NL Assessment /Plan Problems (1) Chronic respiratory failure with hypoxia and hypercapnia Status: Acute Problem Text: D3 meropenem 04/22/19: + for H. influenza. Failed PT for safety going home. 04/20 BCX2 P 04/20 SCX P Continue Bipap at hours of sleep including naps. ABG reviewed this am. Keep sats 88-92%. Sputum cx pending. Received meropenem x 1 dose and currently on Ceftaroline as ordered by ED providers. Hx of pseudomonas in sputum. 11/2018 SCX heavy Pseudomonas (2) Diastolic congestive heart failure Status: Chronic Problem Text: 04/22/19: diuresed another 2L. WIll monitor I/O today on Spironolactone. acute on chronic. Diuresed well with Lasix overnight. will order another dose of Lasix 40 mg IV, monitor I/O and daily weights. (3) Type 2 diabetes mellitus Status: Chronic Problem Text: RISS per protocol. (4) Pulmonary hypertension Status: Chronic (5) Atrial fibrillation Status: Chronic Problem Text: home dosing eliquis continued. Plan/VTE VTE Prophylaxis Ordered?: Yes VS, I&O, 24H, Fishbone Vital Signs/I&O Vital Signs Date Time Temp Pulse Resp B/P (MAP) Pulse Ox O2 Delivery O2 Flow Rate FiO2 04/22/19 09:00 2.0 04/22/19 08:36 116 170/90 04/22/19 05:30 97.6 20 94 04/20/19 18:17 NIPPV (BIPAP/CPAP) l I&O- Last 24 Hours up to 6 AM 04/22/19 05:59 Intake Total 1110 ml Output Total 1955 ml Balance -845 ml Laboratory Data 24H LABS Laboratory Tests 2 04/21/19 17:06: Bedside Glucose (Misc Panel) 237H 04/21/19 20:34: Bedside Glucose (Misc Panel) 229H 04/22/19 06:09: Nucleated Red Blood Cells % (auto) 0.0, Anion Gap , Glomerular Filtration Rate 51.3, Blood Urea Nitrogen 35#H, Creatinine 1.09, Sodium Level 137, Potassium Level 4.3, Chloride Level 93L, Carbon Dioxide Level 45H, Calcium Level 9.4 04/22/19 12:05: Bedside Glucose (Misc Panel) 157H CBC/BMP Laboratory Tests 04/22/19 06:09 Red Blood Count 4.27, Mean Corpuscular Volume 96.3 H, Mean Corpuscular Hemoglobin 29.5, Mean Corpuscular Hemoglobin Concent 30.7 L, Red Cell D istribution Width 14.7 H, Calcium Level 9.4 Microbiology Microbiology 04/20/19 Blood Culture - Preliminary, Resulted No growth after 24 hours . All specim... 04/20/19 Blood Culture - Preliminary, Resulted No growth after 24 hours . All specim... 04/20/19 Gram Stain - Final, Complete 04/20/19 Sputum Culture - Final, Complete Haemophilus Influenzae Zabrina Abbott [employer] Apr 22, 2019 12:51
[2019-04-22 14:00] VITALS: BP 145/71
[2019-04-22 20:00] VITALS: BP 136/85
[2019-04-22] MEDS: ATORVASTATIN 20 MG TAB PO SCH (20:49)
[2019-04-23] MEDS: MEROPENEM INJ 1 GM in APPROPRIATE DILUENT 1 EA IV SCH (05:22)
[2019-04-23 06:21] VITALS: BP 142/74
[2019-04-23 06:46] LABS: HEMOGLOBIN 12.5 g/dl (12.0-15.5); MEAN CORPUSCULAR HEMOGLOBIN 29.3 pg (27.0-33.0); MEAN CORPUSCULAR HGB CONC 29.8 g/dl (32.0-36.5); MEAN CORPUSCULAR VOLUME 98.4 fl (80.0-96.0); PLATELET COUNT, AUTOMATED 210 10^3/uL (150-450); RED BLOOD COUNT 4.27 10^6/uL (4.00-5.40); WHITE BLOOD COUNT 11.7 10^3/uL (4.0-10.0)
[2019-04-23 07:07] LABS: CALCIUM LEVEL 9.1 MG/DL (8.8-10.2); CREATININE FOR GFR 1.11 MG/DL (0.55-1.30); GLOMERULAR FILTRATION RATE 50.2 (>32); POTASSIUM SERUM 4.6 MEQ/L (3.5-5.1)
[2019-04-23] MEDS: SPIRONOLACTONE 25 MG TAB PO SCH (08:10)
[2019-04-23] MEDS: ASPIRIN 81 MG ENTERIC TAB PO SCH (08:10)
[2019-04-23] MEDS: APIXABAN 5 MG TAB (ELIQUIS) PO SCH ×2 (08:10→20:06)
[2019-04-23] MEDS: methylPREDNISolone INJ 125 MG/2 ML VIAL (J2930) IV SCH ×2 (08:10→20:06)
[2019-04-23] MEDS: OMEPRAZOLE 20 MG CAP PO SCH (08:10)
[2019-04-23] MEDS: HumaLOG INSULIN (NovoLOG) PER UNIT SC SCH ×4 (08:11→20:07)
[2019-04-23] MEDS: IPRATROPIUM 0.5MG/ALBUTEROL 2.5MG INH SOL UD 3ML (DUONEB)(J7620) NEB SCH ×3 (08:35→21:01)
[2019-04-23 14:00] VITALS: BP 122/78
[2019-04-23] MEDS ORDERED: cefTRIAXone SOD 2 GM in D5W MINI-BAG PLUS 50 ML IV SCH (17:00)
--- NOTE | 2019-04-23 17:03 | IPN ---
DATE: 04/23/2019 Jocelyne is seen on [facility]. She is a little less short of breath. Her sputum grew out Haemophilus influenza, so we are narrowing the antibiotic spectrum. Her legs are weak, and daughter would like her to be considered for rehabilitation. PHYSICAL EXAMINATION: 122/78, saturation 93% on 2 liters. GENERAL APPEARANCE: She shows cushingoid changes. LUNGS: Expiratory wheezes. Better than last time I examined her. HEART: Regular rate and rhythm. ABDOMEN: Soft and nontender. Peripheral 1+ edema. LABORATORY DATA: White count 11.7, on steroids. Hemoglobin stable. Electrolytes unremarkable. BUN elevated (probably from the steroids). IMPRESSION: 1. Exacerbation of chronic obstructive pulmonary disease (COPD) with hypercapnia and respiratory secondary to Haemophilus (H) influenza. I stopped her meropenem and put her on ceftriaxone 2 grams daily for a more narrow antibiotic spectrum. Continue bilevel positive airway pressure (BiPAP). 2. Congestive heart failure (CHF), preserved ejection fraction. Continue diuresis. She still has peripheral edema, and I think she has more diuresis to go. 3 Diabetes. Sliding scale per protocol. 4. Atrial fibrillation. Continue Eliquis.
[2019-04-23] MEDS: ATORVASTATIN 20 MG TAB PO SCH (20:06)
[2019-04-23 22:00] VITALS: BP 138/72
[2019-04-24] MEDS: IPRATROPIUM 0.5MG/ALBUTEROL 2.5MG INH SOL UD 3ML (DUONEB)(J7620) NEB SCH ×4 (00:43→21:13)
[2019-04-24 06:00] VITALS: BP 134/71
[2019-04-24] MEDS: HumaLOG INSULIN (NovoLOG) PER UNIT SC SCH ×4 (08:12→21:00)
[2019-04-24] MEDS: ASPIRIN 81 MG ENTERIC TAB PO SCH (08:13)
[2019-04-24] MEDS: APIXABAN 5 MG TAB (ELIQUIS) PO SCH ×2 (08:13→20:45)
[2019-04-24] MEDS: SPIRONOLACTONE 25 MG TAB PO SCH (08:13)
[2019-04-24] MEDS: OMEPRAZOLE 20 MG CAP PO SCH (08:13)
[2019-04-24] MEDS: methylPREDNISolone INJ 125 MG/2 ML VIAL (J2930) IV SCH ×2 (08:13→20:45)
--- NOTE | 2019-04-24 11:30 | IPNPDOC ---
Subjective Date Seen The patient was seen on 04/24/19. Subjective Chief Complaint/HPI respiratory failure Constitutional: Reports: Weakness; Denies: Chills, Fever Pulmonary: Reports: Dyspnea, Cough Cardiovascular: Denies: Chest Pain, Palpitations, Orthopnea, Paroxysmal Noc. Dyspnea, Lt Headedness Gastrointestinal: Denies: Nausea, Vomiting, Abdominal Pain, Diarrhea, Constipation Genitourinary: Denies: Dysuria, Frequency, Incontinence, Retention Objective Physical Examination General Exam: Positive: Alert, Cooperative, No Acute Distress Neck Exam: Positive: Supple; Negative: JVD, thyromegaly Chest Exam: Positive: Diminished Heart Exam: Positive: Rate Normal, Regular Rhythm, Normal S1, Normal S2; Negative: Murmurs, Rubs Abdomen Exam: Positive: Normal bowel sounds, Soft; Negative: Tenderness Extremity Exam: Positive: Edema (2+ BLE) Skin Exam: Positive: Other skin issue (ecchymosis to BUE. Erythema to RIGHT f orearm under iV sire, mildly swollen, non-tender normal radial pulse) Psych Exam: Positive: Mental status NL Assessment /Plan Problems (1) Chronic respiratory failure with hypoxia and hypercapnia Status: Acute Problem Text: : transition po abx for H. Influenza. working on rehab/PTfor DC home vs rehab. 04/22/19: + for H. influenza. Failed PT for safety going home. 04/20 BCX2 P 04/20 SCX P Continue Bipap at hours of sleep including naps. ABG reviewed this am. Keep sats 88-92%. Sputum cx pending. Received meropenem x 1 dose and currently on Ceftaroline as ordered by ED providers. Hx of pseudomonas in sputum. 11/2018 SCX heavy Pseudomonas (2) Diastolic congestive heart failure Status: Chronic Problem Text: 04/22/19: diuresed another 2L. WIll monitor I/O today on Spironolactone. acute on chronic. Diuresed well with Lasix overnight. will order another dose of Lasix 40 mg IV, monitor I/O and daily weights. (3) Type 2 diabetes mellitus Status: Chronic Problem Text: RISS per protocol. (4) Pulmonary hypertension Status: Chronic (5) Atrial fibrillation Status: Chronic Problem Text: home dosing eliquis continued. Plan/VTE VTE Prophylaxis Ordered?: Yes VS, I&O, 24H, Fishbone Vital Signs/I&O Vital Signs Date Time Temp Pulse Resp B/P (MAP) Pulse Ox O2 Delivery O2 Flow Rate FiO2 04/24/19 08:18 2.0 04/24/19 08:13 84 134/71 04/24/19 06:00 97.9 18 95 04/20/19 18:17 NIPPV (BIPAP/CPAP) I&O- Last 24 Hours up to 6 AM 04/24/19 06:00 Intake Total 760 ml Balance 760 ml Laboratory Data 24H LABS Laboratory Tests 2 04/23/19 11:45: Bedside Glucose (Misc Panel) 197H 04/23/19 17:31: Bedside Glucose (Misc Panel) 296H 04/23/19 20:00: Bedside Glucose (Misc Panel) 261H 04/24/19 05:58: Bedside Glucose (Misc Panel) 232H Microbiology Microbiology 04/20/19 Blood Culture - Preliminary, Resulted No Growth after 72 hours. All specime... 04/20/19 Blood Culture - Preliminary, Resulted No Growth after 72 hours. All specime... 04/20/19 Gram Stain - Final, Complete 04/20/19 Sputum Culture - Final, Complete Haemophilus Influenzae Zabrina Abbott [facility] Apr 24, 2019 11:30
[2019-04-24 12:08] LABS: BASO % 0.3 % (0.0-1.0); HEMATOCRIT 39.7 % (36.0-47.0); LYMPH # 0.3 10^3/uL (1.5-4.5); LYMPH % 2.2 % (24.0-44.0); MEAN CORPUSCULAR HEMOGLOBIN 29.8 pg (27.0-33.0); MEAN CORPUSCULAR HGB CONC 30.2 g/dl (32.0-36.5); MEAN CORPUSCULAR VOLUME 98.5 fl (80.0-96.0); MONO # 0.7 10^3/uL (0.0-0.8); NEUTROPHILS # 12.7 10^3/uL (1.8-7.7); NEUTROPHILS % 91.3 % (36.0-66.0); PLATELET COUNT, AUTOMATED 207 10^3/uL (150-450); RED BLOOD COUNT 4.03 10^6/uL (4.00-5.40); WHITE BLOOD COUNT 13.9 10^3/uL (4.0-10.0)
[2019-04-24] MEDS: AUGMENTIN 875 MG TAB PO SCH ×2 (12:14→20:45)
[2019-04-24 12:44] LABS: ALBUMIN 2.8 GM/DL (3.2-5.2); BILIRUBIN,TOTAL 0.2 MG/DL (0.2-1.0); CALCIUM LEVEL 9.7 MG/DL (8.8-10.2); CREATININE FOR GFR 1.1 MG/DL (0.55-1.30); GLOMERULAR FILTRATION RATE 50.7 (>32); POTASSIUM SERUM 5.5 MEQ/L (3.5-5.1); TOTAL PROTEIN 6.3 GM/DL (6.4-8.2)
[2019-04-24 14:00] VITALS: BP 161/133
[2019-04-24 14:05] VITALS: BP 144/60
[2019-04-24 14:07] VITALS: BP 161/133
[2019-04-24] MEDS: ATORVASTATIN 20 MG TAB PO SCH (20:45)
[2019-04-24 22:03] VITALS: BP 146/63
[2019-04-25] MEDS: IPRATROPIUM 0.5MG/ALBUTEROL 2.5MG INH SOL UD 3ML (DUONEB)(J7620) NEB SCH ×4 (00:07→18:11)
[2019-04-25 06:49] VITALS: BP 148/65
[2019-04-25] MEDS: AUGMENTIN 875 MG TAB PO SCH ×2 (08:12→20:06)
[2019-04-25] MEDS: SPIRONOLACTONE 25 MG TAB PO SCH (08:12)
[2019-04-25] MEDS: methylPREDNISolone INJ 125 MG/2 ML VIAL (J2930) IV SCH ×2 (08:12→08:15)
[2019-04-25] MEDS: HumaLOG INSULIN (NovoLOG) PER UNIT SC SCH ×4 (08:12→20:07)
[2019-04-25] MEDS: APIXABAN 5 MG TAB (ELIQUIS) PO SCH ×2 (08:13→20:06)
[2019-04-25] MEDS: ASPIRIN 81 MG ENTERIC TAB PO SCH (08:13)
[2019-04-25] MEDS: OMEPRAZOLE 20 MG CAP PO SCH (08:13)
[2019-04-25] MEDS: ATORVASTATIN 20 MG TAB PO SCH (20:06)
--- NOTE | 2019-04-25 23:26 | DSES ---
DATE OF ADMISSION: 04/20/2019 DATE OF SHELTER FACILITY SUMMARY: 04/25/2019 DATE OF DISCHARGE: This is an 83-year-old female patient who follows with Dr. Cisse in the outpatient setting who has a history of chronic respiratory failure who presented to [facility] in acute respiratory failure. She was seen by pulmonary, started on empiric antibiotics as well as Solu-Medrol. During her hospitalization, she has remained medically stable. Her antibiotics have been transitioned over to orals. Her intravenous (IV) steroids have been transitioned to orals as well. She had a sputum culture that was positive for Haemophilus influenzae. She is now on Augmentin, tolerating Duo-Nebs. Her respiratory status continues to improve. She is working with physical therapy, although is agreeable to rehabilitation and we anticipate that she will be able to transition there is the coming days. DISCHARGE DIAGNOSES: 1. Acute on chronic respiratory failure with hypoxia and hypercapnia. 2. Diastolic congestive heart failure. 3. Type 2 diabetes mellitus. 4. Pulmonary hypertension. 5. Chronic atrial fibrillation. Discharge medications and plan will be summarized at time of discharge from the hospital. edited: 04/29/2019 0743 tkf MTDD
[2019-04-26] MEDS: IPRATROPIUM 0.5MG/ALBUTEROL 2.5MG INH SOL UD 3ML (DUONEB)(J7620) NEB SCH ×4 (01:16→20:08)
[2019-04-26 06:00] VITALS: BP 148/68
[2019-04-26] MEDS: HumaLOG INSULIN (NovoLOG) PER UNIT SC SCH ×4 (08:11→20:42)
[2019-04-26] MEDS: AUGMENTIN 875 MG TAB PO SCH ×2 (08:12→20:42)
[2019-04-26] MEDS: predniSONE 10 MG TAB PO SCH (08:12)
[2019-04-26] MEDS: SPIRONOLACTONE 25 MG TAB PO SCH (08:12)
[2019-04-26] MEDS: APIXABAN 5 MG TAB (ELIQUIS) PO SCH ×2 (08:12→20:42)
[2019-04-26] MEDS: ASPIRIN 81 MG ENTERIC TAB PO SCH (08:12)
[2019-04-26] MEDS: OMEPRAZOLE 20 MG CAP PO SCH (08:12)
[2019-04-26] MEDS: ATORVASTATIN 20 MG TAB PO SCH (20:42)
[2019-04-27] MEDS: IPRATROPIUM 0.5MG/ALBUTEROL 2.5MG INH SOL UD 3ML (DUONEB)(J7620) NEB SCH ×4 (02:00→20:04)
[2019-04-27 06:00] VITALS: BP 144/68
[2019-04-27] MEDS: predniSONE 10 MG TAB PO SCH (08:17)
[2019-04-27] MEDS: SPIRONOLACTONE 25 MG TAB PO SCH (08:17)
[2019-04-27] MEDS: AUGMENTIN 875 MG TAB PO SCH ×2 (08:18→21:41)
[2019-04-27] MEDS: APIXABAN 5 MG TAB (ELIQUIS) PO SCH ×2 (08:18→21:41)
[2019-04-27] MEDS: ASPIRIN 81 MG ENTERIC TAB PO SCH (08:18)
[2019-04-27] MEDS: OMEPRAZOLE 20 MG CAP PO SCH (08:18)
[2019-04-27] MEDS: HumaLOG INSULIN (NovoLOG) PER UNIT SC SCH ×4 (08:19→21:00)
[2019-04-27] MEDS: ATORVASTATIN 20 MG TAB PO SCH (21:40)
[2019-04-28] MEDS: IPRATROPIUM 0.5MG/ALBUTEROL 2.5MG INH SOL UD 3ML (DUONEB)(J7620) NEB SCH ×4 (01:31→19:58)
[2019-04-28 06:00] VITALS: BP 160/86
[2019-04-28] MEDS: OMEPRAZOLE 20 MG CAP PO SCH (08:07)
[2019-04-28] MEDS: ASPIRIN 81 MG ENTERIC TAB PO SCH (08:08)
[2019-04-28] MEDS: AUGMENTIN 875 MG TAB PO SCH ×2 (08:08→21:02)
[2019-04-28] MEDS: predniSONE 10 MG TAB PO SCH (08:08)
[2019-04-28] MEDS: APIXABAN 5 MG TAB (ELIQUIS) PO SCH ×2 (08:08→21:02)
[2019-04-28] MEDS: SPIRONOLACTONE 25 MG TAB PO SCH (08:08)
[2019-04-28] MEDS: HumaLOG INSULIN (NovoLOG) PER UNIT SC SCH ×4 (08:09→20:45)
[2019-04-28] MEDS ORDERED: NS 1,000 ML IV SCH (09:45)
[2019-04-28 11:02] LABS: CALCIUM LEVEL 8.5 MG/DL (8.8-10.2); CREATININE FOR GFR 1.02 MG/DL (0.55-1.30); GLOMERULAR FILTRATION RATE 55.4 (>32); POTASSIUM SERUM 4.3 MEQ/L (3.5-5.1)
--- NOTE | 2019-04-28 11:40 | IPNPDOC ---
Subjective Date Seen The patient was seen on 04/28/19. Subjective Chief Complaint/HPI says she feels ok Pulmonary: Denies: Pleuritic Chest Pain Cardiovascular: Denies: Chest Pain, Orthopnea Gastrointestinal: Denies: Nausea, Abdominal Pain Psych: Reports: Mood Normal Objective Physical Examination General Exam: Positive: Alert, Cooperative, No Acute Distress Neck Exam: Positive: Supple; Negative: JVD, thyromegaly Chest Exam: Positive: Diminished Heart Exam: Positive: Rate Normal, Regular Rhythm, Normal S1, Normal S2; Negative: Murmurs, Rubs Abdomen Exam: Positive: Normal bowel sounds, Soft; Negative: Tenderness Extremity Exam: Positive: Edema (2+ BLE. also puffy hands) Skin Exam: Positive: Other skin issue (ecchymosis to BUE. Erythema to RIGHT forearm under iV sire, mildly swollen, non-tender normal radial pulse) Psych Exam: Positive: Mental status NL Assessment /Plan Problems (1) Chronic respiratory failure with hypoxia and hypercapnia Status: Acute Problem Text: 04/28/19 May be candidate for CPAP or BiPAP chronically. : transition po abx for H. Influenza. working on rehab/PTfor DC home vs rehab. 04/22/19: + for H. influenza. Failed PT for safety going home. 04/20 BCX2 P 04/20 SCX P Continue Bipap at hours of sleep including naps. ABG reviewed this am. Keep sats 88-92%. Sputum cx pending. Received meropenem x 1 dose and currently on Ceftaroline as ordered by ED providers. Hx of pseudomonas in sputum. 11/2018 SCX heavy Pseudomonas (2) Diastolic congestive heart failure Status: Chronic Problem Text: 04/22/19: diuresed another 2L. WIll monitor I/O today on Spironolactone. acute on chronic. Diuresed well with Lasix overnight. will order another dose of Lasix 40 mg IV, monitor I/O and daily weights. (3) Type 2 diabetes mellitus Status: Chronic Problem Text: RISS per protocol. (4) Pulmonary hypertension Status: Chronic (5) Atrial fibrillation Status: Chronic Problem Text: home dosing eliquis continued. (6) Renal azotemia Status: Chronic Response to Treatment: Improving Problem Text: BUN had been climbing steadily when she was changed to ALC status. PO intake has improved in the last day or so and her BUN is improved as well. Associated hyperkalemia has also apparently resolved. Will hydrate for 24 hours then d/c IV. Plan/VTE VTE Prophylaxis Ordered?: Yes VS, I&O, 24H, Fishbone Vital Signs/I&O Vital Signs Date Time Temp Pulse Resp B/P (MAP) Pulse Ox O2 Delivery O2 Flow Rate FiO2 04/28/19 08:08 87 160/86 04/28/19 06:00 97.8 20 92 2.0 I&O- Last 24 Hours up to 6 AM 04/28/19 05:59 Intake Total 1160 ml Output Total 600 ml Balance 560 ml Laboratory Data 24H LABS Laboratory Tests 2 04/27/19 16:38: Bedside Glucose (Misc Panel) 276H 04/27/19 19:39: Bedside Glucose (Misc Panel) 113H 04/28/19 05:57: Bedside Glucose (Misc Panel) 118H 04/28/19 10:13: Anion Gap 0L, Glomerular Filtration Rate 55.4, Blood Urea Nitrogen 30H, Creatinine 1.02, Sodium Level 140, Potassium Level 4.3, Chloride Level 99, Carbon Dioxide Level 41H, Calcium Level 8.5L CBC/BMP Laboratory Tests 04/28/19 10:13 Calcium Level 8.5 L Microbiology Microbiology 04/20/19 Blood Culture - Final, Complete NO GROWTH AFTER 5 DAYS 04/20/19 Blood Culture - Final, Complete NO GROWTH AFTER 5 DAYS 04/20/19 Gram Stain - Final, Complete 04/20/19 Sputum Culture - Final, Complete Haemophilus Influenzae Jaime Garvey MD Apr 28, 2019 11:40
[2019-04-28 14:36] VITALS: BP 158/88
[2019-04-28] MEDS: ATORVASTATIN 20 MG TAB PO SCH (21:02)
[2019-04-29] MEDS: IPRATROPIUM 0.5MG/ALBUTEROL 2.5MG INH SOL UD 3ML (DUONEB)(J7620) NEB SCH ×2 (00:40→07:40)
[2019-04-29 05:52] LABS: HEMATOCRIT 35.8 % (36.0-47.0); HEMOGLOBIN 10.9 g/dl (12.0-15.5); MEAN CORPUSCULAR HEMOGLOBIN 29.7 pg (27.0-33.0); MEAN CORPUSCULAR HGB CONC 30.4 g/dl (32.0-36.5); MEAN CORPUSCULAR VOLUME 97.5 fl (80.0-96.0); PLATELET COUNT, AUTOMATED 152 10^3/uL (150-450); RED BLOOD COUNT 3.67 10^6/uL (4.00-5.40); WHITE BLOOD COUNT 15.9 10^3/uL (4.0-10.0)
[2019-04-29 06:00] VITALS: BP 152/84
[2019-04-29 06:21] LABS: BLOOD UREA NITROGEN 28 MG/DL (7-18); CARBON DIOXIDE LEVEL 39 MEQ/L (21-32); CHLORIDE LEVEL 102 MEQ/L (98-107); GLOMERULAR FILTRATION RATE > 60.0 (>32); GLUCOSE, FASTING 157 MG/DL (70-100); MAGNESIUM LEVEL 2.5 MG/DL (1.8-2.4); POTASSIUM SERUM 4.6 MEQ/L (3.5-5.1); SODIUM LEVEL 141 MEQ/L (136-145)
[2019-04-29 08:05] VITALS: BP 152/84
[2019-04-29] MEDS: predniSONE 10 MG TAB PO SCH (08:05)
[2019-04-29] MEDS: HumaLOG INSULIN (NovoLOG) PER UNIT SC SCH (08:05)
[2019-04-29] MEDS: APIXABAN 5 MG TAB (ELIQUIS) PO SCH (08:05)
[2019-04-29] MEDS: AUGMENTIN 875 MG TAB PO SCH (08:05)
[2019-04-29] MEDS: OMEPRAZOLE 20 MG CAP PO SCH (08:05)
[2019-04-29] MEDS: ASPIRIN 81 MG ENTERIC TAB PO SCH (08:05)
[2019-04-29 09:20] LABS: HEMOGLOBIN A1c 8.6 %
[2019-04-29] MEDS ORDERED: PRED10TA2 PO (10:13)
[2019-04-29] MEDS ORDERED: AMOX875T2 PO (10:13)
--- NOTE | 2019-04-29 15:00 | DSES ---
DATE OF ADMISSION: 04/20/2019 DATE OF DISCHARGE: 04/29/2019 REASON FOR ADMISSION: The patient was admitted from the emergency department. She is usually seen by Dr. Cisse in [place]. The patient lives in [place]. She was admitted with respiratory failure. She had had an infection with metapneumovirus in December of 2018. She is a DO NOT RESUSCITATE order in place. She is a former smoker having quit a few years ago. She was in [facility] for rehab in August of 2018. History of atrial fibrillation followed by Dr. Barriga. Echocardiography with a normal ejection fraction, mild pulmonary hypertension. She was diagnosed with acute on chronic respiratory failure. A pulmonary consult was obtained, placed on steroids, antibiotics. No pneumonia was identified. She had some Lasix, gradually improved. Routine Lasix was stopped. She had been on bumetanide as an outpatient. She became somewhat azotemic and potassium increased, rechecked members and overnight hydration partially corrected her azotemia. She is now showing an elevated white count but has no fever, cough, dyspnea or dysuria. No flank pain. No abdominal pain. Seems to be ready to move on to [facility] for rehabilitation. She is showing a white count of 15.9 at discharge, hemoglobin of 10.9 with BUN 28, creatinine 0.70, potassium 4.6, hemoglobin A1c was 8.6. She has had manifested glucoses over 200 since admission and has been on sliding scale coverage. DISCHARGE MEDICATIONS: Will include: - amoxicillin clavulanic acid 875 twice a day for five more days - prednisone 30 mg for 3 days, 20 mg for 3 days and then 10 mg a day - acetaminophen 1000 mg every 6 hours as needed - apixaban 5 mg twice a day - atorvastatin 40 mg daily - calcium carbonate 500-200 daily - diltiazem 120 mg daily - docusate sodium 100 mg by mouth twice a day - Breo 200-25 one inhalation daily - ipratropium albuterol sulfate nebs one every 4 hours as needed - umeclidinium bromide/INCRUSE Ellipta one inhalation daily - vitamin B complex - spironolactone 25 mg daily - omeprazole 20 mg daily - polyvinyl alcohol eye drops - MiraLAX as needed for constipation - Mucinex 600 by mouth twice a day as needed for cough Her loop diuretic has been held for the moment although it could be restarted if she shows increasing evidence of edema. She does have peripheral edema consistent with cor pulmonale. DISCHARGE DIAGNOSES: Chronic obstructive pulmonary disease (COPD) exacerbation with resultant hypercarbic respiratory failure, currently saturating at 96% on 2 liters. Consider nocturnal oximetry monitoring to confirm that she can safely remain without ventilatory support while sleeping, possible candidate for CPAP. Cor pulmonale with confirmed evidence of pulmonary artery hypertension on echo. Diabetes mellitus type 2. Hypertension. Will remain on diltiazem for now. Hypercholesterolemia on atorvastatin. She will be transferred to [facility] where she will be under the care of Dr. Cisse.
[2019-05-05] MEDS ORDERED: predniSONE 10 MG TAB PO SCH (09:00)
== END 2019-04-29 12:10 | DRG 291 ==
LOC: M ED 14:11 → M ED INP 18:13 → M ICU 21:32 → M MS4PR 04-21 16:17 → UNDODISIN 04-23 12:15 → M MS5PR 04-23 16:30
PROVIDERS: ADMIT Family Medicine; ATTEND Family Medicine
DX: I11.0 Hypertensive heart disease with heart failure (principal); J96.22 Acute and chronic respiratory failure with hypercapnia; I50.31 Acute diastolic (congestive) heart failure; J44.1 Chronic obstructive pulmonary disease with (acute) exacerbation; Z66 Do not resuscitate; E11.9 Type 2 diabetes mellitus without complications; I27.20 Pulmonary hypertension, unspecified; I48.91 Unspecified atrial fibrillation; E78.5 Hyperlipidemia, unspecified; I27.81 Cor pulmonale (chronic); Z79.899 Other long term (current) drug therapy; Z79.52 Long term (current) use of systemic steroids; Z79.01 Long term (current) use of anticoagulants; Z88.8 Allergy status to other drugs, medicaments and biological substances; B96.3 Hemophilus influenzae [H. influenzae] as the cause of diseases classified elsewhere

== ENCOUNTER → 2019-05-05 | Outpatient (REF) ==
[~2019-05-05] MED LIST changes: +ACET-683 PO; +AMOX875T2 PO; +B-COTAB10 PO; +CALC500T44 PO; +DOCU100C17 PO; +MEDREC COMMENT; +MIRA3350 PO; +OMEP20CA4 PO
[2019-05-05 07:01] LABS: BLOOD UREA NITROGEN 17 MG/DL (7-18); CALCIUM LEVEL 8.3 MG/DL (8.8-10.2); CARBON DIOXIDE LEVEL 40 MEQ/L (21-32); CHLORIDE LEVEL 100 MEQ/L (98-107); CREATININE FOR GFR 0.57 MG/DL (0.55-1.30); GLOMERULAR FILTRATION RATE > 60.0 (>32); GLUCOSE, FASTING 81 MG/DL (70-100); POTASSIUM SERUM 3.8 MEQ/L (3.5-5.1); SODIUM LEVEL 142 MEQ/L (136-145)
== END ==
LOC: SKLAB4 10:22
PROVIDERS: ATTEND Family Medicine
DX: I50.9 Heart failure, unspecified (principal)

== ENCOUNTER → 2019-05-12 | Outpatient (REF) | payer MEDICARE, MEDICAID ==
[~2019-05-12] MED LIST changes: -ARTI99.0 OU; +ARTIDRO2 OU
== END ==
LOC: M EKG 11:51
PROVIDERS: ATTEND Family Medicine
DX: R06.09 Other forms of dyspnea (principal)

== ENCOUNTER → 2019-05-12 | Outpatient (REF) ==
[2019-05-12 08:48] LABS: BLOOD UREA NITROGEN 21 MG/DL (7-18); CALCIUM LEVEL 9.3 MG/DL (8.8-10.2); CARBON DIOXIDE LEVEL 41 MEQ/L (21-32); CHLORIDE LEVEL 100 MEQ/L (98-107); CREATININE FOR GFR 0.75 MG/DL (0.55-1.30); GLOMERULAR FILTRATION RATE > 60.0 (>32); GLUCOSE, FASTING 118 MG/DL (70-100); SODIUM LEVEL 143 MEQ/L (136-145)
[2019-05-12 11:39] LABS: HEMATOCRIT 38.1 % (36.0-47.0); HEMOGLOBIN 11.5 g/dl (12.0-15.5); MEAN CORPUSCULAR HGB CONC 30.2 g/dl (32.0-36.5); MEAN CORPUSCULAR VOLUME 96.2 fl (80.0-96.0); PLATELET COUNT, AUTOMATED 164 10^3/uL (150-450); RED BLOOD COUNT 3.96 10^6/uL (4.00-5.40)
[2019-05-12 12:02] LABS: CHOLESTEROL RISK RATIO 2.042 (<5); TROPONIN I 0.06 NG/ML (< 0.10)
--- NOTE | 2019-05-12 14:12 | REP ---
COMPARISON: 04/20/2019 REASON FOR EXAM: Hypoxia. There is a patchy opacity in the inferior right middle lobe. This is seen with conjunction with marked fibrotic changes status quo. There is cardiomegaly accentuated by technique. The technique utilized in obtaining the radiograph has magnified the cardiac silhouette and accentuated the interstitial markings. There is right costophrenic angle and cardiophrenic angle blunting at least in part of which is chronic. IMPRESSION: 1. New right upper lobe opacity abutting the major fissure. Pneumonia cannot be ruled out. 2. Chronic lung field changes as described above with chronic change. 3. Chronic right cardiophrenic and costophrenic angle blunting. Electronically Signed by Pito Hayward DO 05/12/2019 04:46 P
[2019-05-12 15:31] LABS: CK-MB VALUE MASS 2.9 NG/ML (<3.6); MB/CK RELATIVE INDEX 4.75 (< OR =4)
--- NOTE | 2019-05-13 20:30 | ECGEPIP ---
[facility] Test Date: 2019-05-12 Pat Name: CLAIR LR Department: Room: - Gender: Female [employer] Driver: LEONEL : [id number] Requested By: [facility] Order Number: [id number] Reading MD: Pratik Barriga Measurements Intervals [place] Rate: 106 P: 35 ND: 167 QRS: -31 QRSD: 90 T: 46 QT: 322 QTc: 429 Interpretive Statements SINUS TACHYCARDIA WITH OCCASIONAL VENTRICULAR PREMATURE COMPLEXES WITH OCCASIONAL SUPRAVENTRICULAR PREMATURE COMPLEXES POSSIBLE SEPTAL MYOCARDIAL INFARCTION, PROBABLY OLD INFERIOR MYOCARDIAL INFARCTION, PROBABLY OLD COMPARED TO THE LAST 4 TRACINGS IN THE SYSTEM, NO SIGNIFICANT CHANGES Electronically Signed on 05-13-2019 20:30:09 EDT by Pratik Barriga
== END ==
LOC: SKLAB4 09:17
PROVIDERS: ATTEND Family Medicine
DX: I50.9 Heart failure, unspecified (principal)

== ENCOUNTER → 2019-05-13 | Outpatient (REF) ==
[2019-05-13 08:10] LABS: HEMATOCRIT 35.5 % (36.0-47.0); HEMOGLOBIN 10.5 g/dl (12.0-15.5); MEAN CORPUSCULAR HGB CONC 29.6 g/dl (32.0-36.5); MEAN CORPUSCULAR VOLUME 98.1 fl (80.0-96.0); PLATELET COUNT, AUTOMATED 162 10^3/uL (150-450); RED BLOOD COUNT 3.62 10^6/uL (4.00-5.40); WHITE BLOOD COUNT 8.5 10^3/uL (4.0-10.0)
== END ==
LOC: SKLAB4 07:09
PROVIDERS: ATTEND Family Medicine
DX: D72.829 Elevated white blood cell count, unspecified (principal); R94.31 Abnormal electrocardiogram [ECG] [EKG]; R79.89 Other specified abnormal findings of blood chemistry

== ENCOUNTER → 2019-05-19 | Outpatient (REF) ==
[2019-05-19 09:52] LABS: BLOOD UREA NITROGEN 13 MG/DL (7-18); CALCIUM LEVEL 8.2 MG/DL (8.8-10.2); CARBON DIOXIDE LEVEL 42 MEQ/L (21-32); CHLORIDE LEVEL 98 MEQ/L (98-107); CREATININE FOR GFR 0.65 MG/DL (0.55-1.30); GLOMERULAR FILTRATION RATE > 60.0 (>32); GLUCOSE, FASTING 89 MG/DL (70-100); POTASSIUM SERUM 3.9 MEQ/L (3.5-5.1); SODIUM LEVEL 142 MEQ/L (136-145)
== END ==
LOC: SKLAB4 09:50
PROVIDERS: ATTEND Family Medicine
DX: I50.9 Heart failure, unspecified (principal)

== ENCOUNTER 2019-05-26 09:06 | Inpatient (IN) | payer MEDICARE, MEDICAID ==
[~2019-05-26] VITALS: Ht 177.8 cm; Wt 77.8 kg
[~2019-05-26 09:06] MED LIST changes: -ACET65SU PR; -AUGM500T34 PO; +DIGO0.12 PO; -DIGO0.123 PO; -DULC10SU2 PR; -ENEMENE PR; +ENOXAPARIN 30 MG/0.3 ML SYR (J1650) SC SCH; -INSUHUMDS SC; -MILKSUS3 PO; -OMEP1CAP73 PO; +OMEP20CA4 PO; -PRED20TA PO; -TORS100T PO; -TORS10TA3 PO
[2019-05-26] MEDS ORDERED: LIDOCAINE 2% 5ML JELLY UROJET TOP ONE ×2 (09:30→10:45)
[2019-05-26 09:50] LABS: ABG BASE EXCESS 21.3 (-2.0-2.0); ABG HCO3 54.6 MEQ/L (22.0-26.0); ABG O2 SATURATION 98.3 % (95.0-99.0); ABG PARTIAL PRESSURE O2 123.8 mmHg (75.0-100.0); ABG STANDARD HCO3 45.7 MEQ/L (22.0-26.0); ABG TOTAL CO2 58.9 MEQ/L (23.0-31.0)
[2019-05-26 09:55] LABS: ABG PARTIAL PRESSURE CO2 139.6 mmHg (35.0-45.0)
[2019-05-26 10:13] LABS: BASO # 0.1 10^3/uL (0.0-0.2); BASO % 0.7 % (0.0-1.0); EOS % 0.2 % (0.0-3.0); HEMATOCRIT 36.9 % (36.0-47.0); HEMOGLOBIN 10.5 g/dl (12.0-15.5); LYMPH # 1.9 10^3/uL (1.5-4.5); LYMPH % 13.1 % (24.0-44.0); MEAN CORPUSCULAR HEMOGLOBIN 28.2 pg (27.0-33.0); MEAN CORPUSCULAR HGB CONC 28.5 g/dl (32.0-36.5); MEAN CORPUSCULAR VOLUME 99.2 fl (80.0-96.0); MONO # 0.9 10^3/uL (0.0-0.8); NEUTROPHILS # 11.6 10^3/uL (1.8-7.7); NEUTROPHILS % 78.1 % (36.0-66.0); PLATELET COUNT, AUTOMATED 302 10^3/uL (150-450); RED BLOOD COUNT 3.72 10^6/uL (4.00-5.40); WHITE BLOOD COUNT 14.8 10^3/uL (4.0-10.0)
[2019-05-26] MEDS ORDERED: TORS10TA3 PO (10:13)
[2019-05-26] MEDS ORDERED: MILKSUS3 PO (10:13)
[2019-05-26] MEDS ORDERED: ACET65SU PR (10:13)
[2019-05-26] MEDS ORDERED: DULC10SU2 PR (10:13)
[2019-05-26] MEDS ORDERED: PRED10TA2 PO (10:13)
[2019-05-26] MEDS ORDERED: ENEMENE PR (10:13)
[2019-05-26] MEDS ORDERED: methylPREDNISolone INJ 125 MG/2 ML VIAL (J2930) IV ONE (10:15)
[2019-05-26] MEDS ORDERED: ALBUTEROL SULFATE 2.5 MG/0.5 ML INH NEB SOLN INH ONE (10:15)
[2019-05-26] MEDS ORDERED: IPRATROPIUM 0.5MG/ALBUTEROL 2.5MG INH SOL UD 3ML (DUONEB)(J7620) NEB ONE (10:15)
[2019-05-26] MEDS ORDERED: PIPERACILLIN/TAZOBACTAM SOD 4.5 GM in D5W MINI-BAG PLUS 50 ML IV ONE (10:45)
[2019-05-26 11:20] LABS: AMPHETAMINES LEVEL URINE NEGATIVE (NEGATIVE); BARBITURATES URINE NEGATIVE (NEGATIVE); BENZODIAZEPINES URINE NEGATIVE (NEGATIVE); CANNABINOIDS URINE NEGATIVE (NEGATIVE); COCAINE METABOLITE URINE NEGATIVE (NEGATIVE); METHADONE URINE NEGATIVE (NEGATIVE); OPIATES URINE NEGATIVE (NEGATIVE); PHENCYCLIDINE URINE NEGATIVE (NEGATIVE)
[2019-05-26 11:27] LABS: ACETAMINOPHEN LEVEL < 2.0 UG/ML (10.0-30.0); ALBUMIN 2.6 GM/DL (3.2-5.2); ALT/SGPT 62 U/L (12-78); BILIRUBIN,DIRECT < 0.1 MG/DL (0.0-0.2); BILIRUBIN,TOTAL 0.2 MG/DL (0.2-1.0); BLOOD UREA NITROGEN 15 MG/DL (7-18); CALCIUM LEVEL 8.7 MG/DL (8.8-10.2); CARBON DIOXIDE LEVEL 50 MEQ/L (21-32); CHLORIDE LEVEL 94 MEQ/L (98-107); CK-MB VALUE MASS 2.3 NG/ML (<3.6); CPK CREATINE PHOSPHOKINASE 36 U/L (26-192); CREATININE FOR GFR 0.72 MG/DL (0.55-1.30); ETHYL ALCOHOL (ETHANOL) < 0.003 % (0.000-0.010); GLOMERULAR FILTRATION RATE > 60.0 (>32); GLUCOSE, FASTING 111 MG/DL (70-100); MB/CK RELATIVE INDEX 6.39 (< OR =4); POTASSIUM SERUM 4.1 MEQ/L (3.5-5.1); SALICYLATE LEVEL < 1.7 MG/DL (5.0-30.0); SODIUM LEVEL 143 MEQ/L (136-145); THYROID STIMULATING HORMONE 0.989 uIU/ML (0.358-3.740); TOTAL PROTEIN 5.9 GM/DL (6.4-8.2); TROPONIN I 0.04 NG/ML (< 0.10)
[2019-05-26 13:30] VITALS: BP 114/57
[2019-05-26] MEDS ORDERED: ACETAMINOPHEN 650 MG SUPP PR PRN (13:45)
[2019-05-26] MEDS ORDERED: BISACODYL 10 MG SUPP PR PRN (13:45)
[2019-05-26 14:00] VITALS: BP 125/63
[2019-05-26 14:10] LABS: NT-PRO BNP 921 PG/ML (<450)
[2019-05-26 15:00] VITALS: BP 120/58
[2019-05-26] MEDS ORDERED: AZITHROMYCIN INJ 500 MG, VIAL MATE ADAPTER 1 EACH in D5W 250 ML IV SCH (15:00)
[2019-05-26] MEDS: OMEPRAZOLE 20 MG CAP PO SCH (15:07)
[2019-05-26] MEDS: FUROSEMIDE 40 MG/4 ML VIAL (J1940) IV SCH ×2 (15:07→20:00)
[2019-05-26] MEDS: predniSONE 10 MG TAB PO SCH (15:07)
[2019-05-26] MEDS: cefTRIAXone SOD 2 GM in D5W MINI-BAG PLUS 50 ML IV SCH (15:07)
[2019-05-26] MEDS: SPIRONOLACTONE 25 MG TAB PO SCH (15:08)
--- NOTE | 2019-05-26 15:24 | CR ---
PULMONARY CRITICAL CARE CONSULTATION: DATE OF VISIT: 05/26/2019 ATTENDING PHYSICIAN: Dr. Cordero REASON FOR CONSULTATION: Acute on chronic respiratory failure. HISTORY OF PRESENT ILLNESS (HPI): Ms. Silva is an 83-year-old female known to this service from multiple previous admissions. She is now at the retirement. She is a DO NOT RESUSCITATE, DO NOT INTUBATE confirmed again by her daughter at the bedside. Apparently was doing well until the last several days where she has had decreasing mental status with increasing involuntary muscle twitching. Was much more obtunded this morning. Brought to the emergency room (ER) where a pH of 7.21, pCO2 139, and pO2 of 123 was documented. She was placed on noninvasive support; pH 7.294, pCO2 of 103.4, pO2 of 86. She is now moved to the intensive care unit. Chest x-ray shows cardiomegaly, interstitial edema and small bilateral pleural effusions. No recent fever or chills reported. No acute illness. ALLERGIES: None. CURRENT MEDICATIONS (ordered here in the hospital): - Tylenol - Eliquis - Lipitor - Cardizem 120 - guaifenesin - omeprazole - chronic prednisone of 10 mg - 25 mg spironolactone - She was placed ceftriaxone, azithromycin. SOCIAL HISTORY: No recent smoking. She is currently in the [facility]. FAMILY HISTORY: Noncontributory. REVIEW OF SYSTEMS: As per the HPI, otherwise: Constitutional: Negative for any recent fevers or chills. HEENT: Unremarkable for double or blurred vision. Pulmonary: Significant for end-stage obstructive lung disease. Cardiac: Significant for cardiomegaly and congestive heart failure. Endocrine: Significant for elevated glucose. Hematologic is significant chronic anticoagulation. Dermatologic: Unremarkable for any new rashes or psoriasis. Musculoskeletal: Significant for chronic arthralgias, myalgias. Allergic/immunologic: Unremarkable. Psychiatric: Unremarkable. PHYSICAL EXAM: Currently reveals an elderly female, lying in the bed in the intensive care unit. Blood pressure 119 systolic, respiratory rate about 24 without accessory muscle use. She is currently afebrile. Heart rate in the 80s. HEENT: Shows the noninvasive mask in place. Pupils do react. Jugular venous system does appear visible at 30 degrees. Chest: Diminished but symmetric expansion. There are basilar crackles. No convincing wheeze. Occasional rhonchus clears with cough. Cardiac exam: Distant, generally regular. Peripheral pulses markedly diminished but palpable. 1+ edema. Abdomen: Obese, soft with active bowel sounds. Extremities: Without cyanosis or clubbing. There are multiple bruises consistent with her anticoagulation. Neurologically, she is awake, does answer questions but intermittently confulsed. She moves all extremities but there is involuntary muscle twitching. Blood gases as outlined above. White blood cell count 14.8, hemoglobin 10.5, platelet count 302,000, 78% segmented neutrophils, no bands. Sodium 143, potassium 4.1, chloride 94, CO2 50, BUN 15, creatinine 0.72, troponin is 0.04. ProBNP 921. IMPRESSION: 1. Acute on chronic respiratory failure both hypoxemic and hypercapnic. 2. Advanced essentially end-stage obstructive lung disease. 3. Suspect obstructive sleep apnea syndrome. 4. Congestive heart failure. 5. DO NOT RESUSCITATE, DO NOT INTUBATE status. 6. Chronic anticoagulation. RECOMMENDATIONS: At this point, her daughter confirms her DO NOT RESUSCITATE, DO NOT INTUBATE status. In general when she gets well, she usually refuses noninvasive support. Discussions have been had in the past regarding getting her a device for use in the [facility] but she has never been able to get to the lab to be tested, and we will discuss it with her again. At this point, I do not see an overall roll for antimicrobials but will check a procalcitonin. Diuresis is being managed through the primary service. At this point, she does remain critically ill. There is always a high likelihood of further compromise. Further recommendations will be made in the progress record as new information becomes available.
[2019-05-26 16:00] VITALS: BP 117/58
--- NOTE | 2019-05-26 16:55 | REP ---
Axial CT of the head without contrast Indication: Altered. On Eliquis. Comparison: None Findings: There is patient motion artifact which reduces the sensitivity of the study for detection of small lesions. Within this limitation, there is a linear focus of hyperdensity along the sulci of the right parietal cortex which raises suspicion for subarachnoid hemorrhage. There is no midline shift. Ventricles are symmetric. Basal cisterns are patent. Note is made intracranial vascular calcifications. The [place] ocular lenses are surgically absent. There is partial opacification of the inferior right mastoid air cells. There is near-complete opacification of the left sphenoid sinus. 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 Impression: Suboptimal examination secondary to patient were artifact which reduces the sensitivity for the detection of small lesions. Within this limitation, there is linear focus of hyperdensity along the right parietal brain which raises suspicion for subarachnoid hematoma. Recommend repeat CT head. Left sphenoid sinus opacification. Electronically Signed by Miko Brewer MD 05/26/2019 10:39 A
--- NOTE | 2019-05-26 16:56 | REP ---
Portable chest, 09:49 a.m., single AP view with the patient sitting: Comparison is a 09/08/2019. There is effacement right costophrenic angle that has increased compatible with an increasing right pleural effusion. Lung worrell otherwise clear. Cardiac size is normal. The patti, mediastinum, skeletal structures are unchanged. Impression: Increasing right pleural effusion. Electronically Signed by Cayetano Hall MD 05/26/2019 10:07 A
[2019-05-26 17:27] LABS: ABG BASE EXCESS 17.5 (-2.0-2.0); ABG HCO3 47.5 MEQ/L (22.0-26.0); ABG O2 SATURATION 95.9 % (95.0-99.0); ABG PARTIAL PRESSURE O2 81.2 mmHg (75.0-100.0); ABG STANDARD HCO3 41.5 MEQ/L (22.0-26.0); ABG TOTAL CO2 50.4 MEQ/L (23.0-31.0); ABG pH (ARTERIAL) 7.326 UNITS (7.350-7.450)
[2019-05-26 17:28] LABS: ABG PARTIAL PRESSURE CO2 93.1 mmHg (35.0-45.0)
[2019-05-26] MEDS ORDERED: VANCOMYCIN HCL 500 MG in D5W MINI-BAG PLUS 100 ML IV SCH (17:45)
[2019-05-26] MEDS: AZITHROMYCIN INJ 500 MG, VIAL MATE ADAPTER 1 EACH in D5W 250 ML IV SCH (18:31)
[2019-05-26] MEDS: POLYVINYL ALCOHOL OPHTH SOLN 15 ML(LIQUITEARS) OU SCH ×3 (18:31→21:04)
[2019-05-26 18:50] LABS: CK-MB VALUE MASS 1.7 NG/ML (<3.6); MB/CK RELATIVE INDEX 5.31 (< OR =4); TROPONIN I 0.03 NG/ML (< 0.10)
[2019-05-26 19:54] VITALS: BP 109/57
[2019-05-26] MEDS ORDERED: VANCOMYCIN HCL 1,000 MG, VIAL MATE ADAPTER 1 EACH in D5W 250 ML IV SCH (20:00)
--- NOTE | 2019-05-26 20:04 | REPVR ---
EXAM: CT Chest Without Contrast EXAM DATE/TIME: 05/26/2019 6:22 PM CLINICAL HISTORY: 83 years old, female; Condition or disease; Lung condition and disease; Pleural effusion; Other: ? ; Additional info: Right pleural effusion TECHNIQUE: Imaging protocol: Computed tomography images of the chest without contrast. 3D rendering: MIP reconstructed images were created and reviewed. Radiation optimization: All CT scans at this facility use at least one of these dose optimization techniques: automated exposure control; mA and/or kV adjustment per patient size (includes targeted exams where dose is matched to clinical indication); or iterative reconstruction. COMPARISON: CT Chest without contrast 12/15/2018 5:10 PM FINDINGS: Lungs: There is infiltrates in the right lower lung field consistent with atelectasis and pneumonia. There is a small area of scarring at the right lung base unchanged. Pleural space: There is a moderate right pleural effusion. The right pleural effusion has developed since November. There is a small left pleural effusion. Heart: Normal size heart. Aorta: There is calcification of the aorta which appears intact. Lymph nodes: Unremarkable. No enlarged lymph nodes. Bones/joints: There is severe kyphosis of the thoracic spine. There is moderate compression of T5 and T6 vertebra and also seen on the examination of November. Soft tissues: Unremarkable. Liver: There is scattered cysts of the liver. Gallbladder and bile ducts: There are large calcified gallstones in the dependent portion of the gallbladder. IMPRESSION: 1. There is a moderate right pleural effusion new since November. 2. There is atelectasis and pneumonic infiltrate in the right lower lobe. 3. Large calcified gallstones. Electronically signed by: Clinton Nugent On 05/26/2019 20:03:51 PM
--- NOTE | 2019-05-26 20:38 | ECGEPIP ---
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
[2019-05-26 20:50] VITALS: BP 115/56
[2019-05-26] MEDS ORDERED: VANCOMYCIN HCL 750 MG, VIAL MATE ADAPTER 1 EACH in D5W 250 ML IV SCH (21:00)
[2019-05-26] MEDS: guaiFENesin ER 600 MG TAB PO SCH (21:04)
[2019-05-26] MEDS: ATORVASTATIN 20 MG TAB PO SCH (21:04)
[2019-05-26] MEDS: APIXABAN 5 MG TAB (ELIQUIS) PO SCH (21:04)
--- NOTE | 2019-05-26 23:48 | PHACANCOPD ---
PHARMACY VANCOMYCIN DOSING Pt Demographics Demographics Patient Age:83 , Weight:79.500 , Gender: female Adjusted Body Weight Events Past 24 Hours Events Past 24 Hours: NO: Dialysis, Diuretic Therapy, Change in CrCl, Fever, Elevation in WBC, Pending Diagnostics, Pending Procedures, Other Vancomycin Vancomycin indication: RESP INFECTION Vancomycin Target Ranges: 15-20 mcg/ml Vancomycin Load Y/N: Yes Load Dose Date Time Vancomycin Load Dose: 1.75GM Date: 05/26/19 Time: 20:00 Vancomycin Dose Date: 05/27/19. Current Vancomycin Dose: [1GM IV Q24H (08:00)] Intermittent Dosing?: No Labs Labs Laboratory Tests 05/26/19 09:20 Red Blood Count 3.72 L, Mean Corpuscular Volume 99.2 H, Mean Corpuscular Hemogl obin 28.2, Mean Corpuscular Hemoglobin Concent 28.5 L, Red Cell Distribution Width 15.2 H, Neutrophils (%) (Auto) 78.1 H, Lymphocytes (%) (Auto) 13.1 L, Monocytes (%) (Auto) 6.0 H, Eosinophils (%) (Auto) 0.2, Basophils (%) (Auto) 0.7, Neutrophils # (Auto) 11.6 H, Lymphocytes # (Auto) 1.9, Monocytes # (Auto) 0.9 H, Eosinophils # (Auto) 0.0, Basophils # (Auto) 0.1 Micro Microbiology 05/26/19 Blood Culture, Received Pending 05/26/19 Blood Culture, Received Pending 05/26/19 Respiratory Virus Panel (PCR) ([facility]) - Final, Complete 05/26/19 Urine Culture, Received Pending Creatinine Clearance Date:05/26/19. Creatinine Clearance: [>60ml/min]. Assessment and Plan Maintaining Current Dose?: Yes Reason for dose change: No Dose Change Pharmacist Note Pharmacist Note Date: 05/26/19. PharmD note: VANCOMYCIN 1.75GM LD 20:00 FOLLOWED BY 1GM IV Q24H STARTING AT 8:00 05/27/19. VANCO TROUGH WHEN AT [facility] May 26, 2019 23:48
--- NOTE | 2019-05-26 23:57 | HPE ---
DATE OF ADMISSION: 05/26/2019 PRIMARY CARE PHYSICIAN: Onel Cisse MD CHIEF COMPLAINT: Confusion. HISTORY OF PRESENT ILLNESS: This is an 83-year-old female, was brought in by ambulance due to altered mental status according to the daughter for the past few days, worsening respiratory distress. The patient is confused and history could not be obtained. In the emergency room (ER), she was found to have acute hypercapnic respiratory failure with severe respiratory acidosis, pH was 7.2, CO2 of 139. She was emergently placed on BiPAP therapy. Code status was confirmed with the patient's daughter. She remains DO NOT RESUSCITATE, DO NOT INTUBATE. The patient is only awake, alert to herself. She has a longtime history of severe chronic obstructive pulmonary disease (COPD) and follows with Dr. Leo at [facility], along with hypercapnia. There has been no fever detected in the emergency room. She has a progressive pleural effusion and is currently being admitted for congestive heart failure with acute hypercapnic respiratory failure requiring BiPAP therapy. Review of systems could not be performed as the patient is confused. No other history was able to be obtained. PAST MEDICAL HISTORY: 1. Hypertension. 2. Dyslipidemia. 3. Cor pulmonale. 4. Pneumonia. 5. History of human metapneumovirus. 6. Type 2 diabetes. 7. Chronic hypercapnic respiratory failure. 8. End-stage chronic obstructive pulmonary disease (COPD). 9. Chronic hypoxic respiratory failure on supplemental oxygen. 10. Chronic renal insufficiency. 11. Arterial hypertension. 12. History of obesity. 13. Chronic lower extremity edema due to venous insufficiency and right-sided heart failure. PAST SURGICAL HISTORY: 1. Carpal tunnel repair on the left hand. SOCIAL HISTORY: Came from [facility]. Quit smoking about 9 years ago. No alcohol use. Healthcare proxy is the daughter. FAMILY HISTORY: Questionable history of heart disease in her father. HOME MEDICATIONS: - acetaminophen 1 gram every 6 hours as needed for pain, 650 every 4 hours as needed for pain or fever, acetaminophen, Eliquis 5 mg twice a day, atorvastatin 40 mg at bedtime (q.h.s.), Dulcolax 10 mg per rectum as needed, calcium with vitamin D one tab daily, diltiazem 120 mg daily, Mucinex 600 mg twice a day, Combivent every 4 hours as needed, omeprazole 20 mg daily, Artificial Tears one drop both eyes four times a day, prednisone 10 mg daily, spironolactone 25 mg daily, torsemide 10 mg daily REVIEW OF SYSTEMS: Could not be obtained. PHYSICAL EXAMINATION: Temperature 98.3, pulse 91, respiratory rate 18, blood pressure 127/61, 97% on BiPAP, 45% FiO2. GENERAL: The patient is in moderate distress. She is using respiratory accessory muscles, confused, able to state her name. Thick unable to assess jugular venous distension (JVD), thyromegaly or cervical lymphadenopathy. LUNGS: Diminished bilateral crackles and rales. HEART: S1, S2. Regular rate and rhythm. ABDOMEN: Obese, soft, nontender, nondistended. Timmons catheter in place. EXTREMITIES: 3+ pitting edema to the sacrum. LABORATORY DATA: White count 14.8, hemoglobin 10, hematocrit 36, platelet count 302. Sodium 142, potassium 4, chloride 94, bicarbonate 50, BUN 15, creatinine 0.72, glucose 111, lactic acid 0.6, calcium 8.7, total bilirubin 0.2, direct bilirubin less than 0.1, AST 26, ALT 62, alkaline phosphatase 144, ammonia 24, total CK 36, MB fraction 2.3, relative index 6.39, troponin 0.34, total protein 5.9, albumin 2.6, thyroid simulating hormone (TSH) 0.98. Urine drug screen is negative. Salicylate less than 1.7. Cloudy appearance of the urine. 1+ protein, 3+ blood. Positive nitrite. 2+ leukocyte esterase. 99 white blood cells. White count 139. White count 14.8, hemoglobin 10.5, hematocrit 36, platelet count 302. Urine and blood cultures are pending. CT of the head pending official report. Chest x-ray: Progressive right-sided pleural effusion. Official report is pending. ASSESSMENT AND PLAN: 83-year-old female presented to the emergency room with altered mental status, found to have worsening bilateral pleural effusions, right greater than left, acute hypercapnic respiratory failure. The patient will be admitted into the intensive care unit (ICU) for the following acute issues. 1. Acute hypercapnic respiratory failure, most likely secondary to congestive heart failure (CHF) exacerbation, diastolic dysfunction. The patient will be kept nothing by mouth while on BiPAP to decrease the risk of aspiration. The patient is kept on input and output, daily weights, continue with Lasix diuresis every 6 hours, 2 liter fluid restriction. The patient was not wheezing on examination, but did receive IV Solu-Medrol on admission. She was given IV Zosyn for presumed pneumonia of the right base and continued on ceftriaxone and azithromycin for now. 2. Congestive heart failure (CHF). Acute exacerbation, diastolic dysfunction with preserved ejection fraction. The patient will be kept in the intensive care unit (ICU) under telemetry. Cardiac markers will be cycled. Previous echocardiogram was done 12/21 showing ejection fraction of 60 to 65% of grade 1 diastolic dysfunction. No evidence of mitral stenosis. There is mild pulmonary hypertension and mild tricuspid regurgitation. The patient will be given Lasix 40 mg IV every 6 hours. Net negative balance of 1 liter goal daily. Strict input and output, daily weight and fluid restriction until the patient's respiratory status has significantly improved. 3. Chronic hypoxic respiratory failure due to end-stage chronic obstructive pulmonary disease (COPD) and congestive heart failure. The patient is kept on supplemental oxygen, keep saturations between 80 to 92%. Will rule out acute pneumonia. Currently on IV ceftriaxone and azithromycin for presumed pneumonia. The patient does have a slight white count, no fever or chills however. No sputum production. Blood cultures have been obtained. Will check urine, streptococcal antigen and urine Legionella antigen. The patient is covered for both gram negative infection, as well as atypicals. Will obtain methicillin-resistant Staphylococcus aureus (MRSA) screen and respiratory panel as well, as the patient has had prior history of human metapneumovirus. 4. Type 2 diabetes. Will check A1c. The patient is kept on hypoglycemic protocol, insulin sliding scale for now. No intravenous fluids. Once respiratory status has, will consider resumption of diet and if mentation has improved. 5. Acute encephalopathy, most likely secondary to hypercapnic respiratory failure secondary to congestive heart failure (CHF) exacerbation. The patient is kept nothing by mouth due to aspiration risks. Swallow evaluation will be obtained. CT of the brain had to be repeated due to question of hematoma. Repeat CT head showed no acute bleed. The patient will be monitored every 4 hours with neuro checks, telemetry in the intensive care unit (ICU). 6. Dyslipidemia. Continue on Lipitor. 7. Hypertensive heart disease. Continue on diltiazem 120 mg daily 8. Chronic obstructive pulmonary disease (COPD). No active wheezing on exam. Received IV Solu-Medrol 125 mg. Continue with DuoNeb and currently BiPAP managed by pulmonary. 9. Cor pulmonale with pulmonary artery hypertension. Continue on Lasix diuresis. MTDD
[2019-05-27] VITALS (20 sets, daily range): BP systolic 109–140; BP diastolic 55–88; O2SAT 96
[2019-05-27 00:54] LABS: CK-MB VALUE MASS 1.4 NG/ML (<3.6); CPK CREATINE PHOSPHOKINASE 25 U/L (26-192); TROPONIN I < 0.02 NG/ML (< 0.10)
[2019-05-27] MEDS: FUROSEMIDE 40 MG/4 ML VIAL (J1940) IV SCH ×4 (02:00→20:11)
[2019-05-27 05:12] LABS: HEMOGLOBIN 10.4 g/dl (12.0-15.5); MEAN CORPUSCULAR HEMOGLOBIN 28.3 pg (27.0-33.0); MEAN CORPUSCULAR HGB CONC 29.7 g/dl (32.0-36.5); MEAN CORPUSCULAR VOLUME 95.1 fl (80.0-96.0); PLATELET COUNT, AUTOMATED 276 10^3/uL (150-450); RED BLOOD COUNT 3.68 10^6/uL (4.00-5.40); WHITE BLOOD COUNT 12.9 10^3/uL (4.0-10.0)
[2019-05-27 06:04] LABS: ALBUMIN 2.5 GM/DL (3.2-5.2); ALT/SGPT 59 U/L (12-78); BILIRUBIN,TOTAL 0.2 MG/DL (0.2-1.0); BLOOD UREA NITROGEN 23 MG/DL (7-18); CALCIUM LEVEL 8.7 MG/DL (8.8-10.2); CARBON DIOXIDE LEVEL 46 MEQ/L (21-32); CHLORIDE LEVEL 93 MEQ/L (98-107); CK-MB VALUE MASS 1.1 NG/ML (<3.6); CPK CREATINE PHOSPHOKINASE 28 U/L (26-192); CREATININE FOR GFR 0.92 MG/DL (0.55-1.30); GLOMERULAR FILTRATION RATE > 60.0 (>32); GLUCOSE, FASTING 172 MG/DL (70-100); MB/CK RELATIVE INDEX 3.93 (< OR =4); POTASSIUM SERUM 4.4 MEQ/L (3.5-5.1); SODIUM LEVEL 139 MEQ/L (136-145); TROPONIN I 0.02 NG/ML (< 0.10)
[2019-05-27 06:10] LABS: ABG BASE EXCESS 17.2 (-2.0-2.0); ABG HCO3 44.8 MEQ/L (22.0-26.0); ABG O2 SATURATION 97.7 % (95.0-99.0); ABG PARTIAL PRESSURE CO2 72.5 mmHg (35.0-45.0); ABG PARTIAL PRESSURE O2 97.3 mmHg (75.0-100.0); ABG STANDARD HCO3 41.1 MEQ/L (22.0-26.0); ABG pH (ARTERIAL) 7.409 UNITS (7.350-7.450)
--- NOTE | 2019-05-27 07:53 | IPNPDOC ---
Date Seen The patient was seen on 05/27/19. Progress Note SUBJECTIVE: pt still confused, but much more alert. denies any chest pain,pressure,tightness. has not been out of bed. still c/o sob but improved, and requesting bipap mask to be removed. no c/o fever, chills. diuresed about [address] chest: right pleural effusion, not loculated. tele unremarkable OBJECTIVE: PHYSICAL EXAMINATION VITALS PLS SEE BELOW GENERAL: [id number] to person only. answers questions appropriately bipap mask on. neck is Thick unable to assess jugular venous distension (JVD), thyromegaly or cervical lymphadenopathy. LUNGS:Diminished bilateral crackles and rales. HEART: S1, S2. Regular rate and rhythm. ABDOMEN: Obese, soft, nontender, nondistended. Timmons catheter in place. EXTREMITIES: 3+ pitting edema to the sacrum. LABORATORY DATA, IMAGING STUDIES, MICROBIOLOGY: PENDING ASSESSMENT AND PLAN: 83-year-old female presented to the emergency room with altered mental status, found to have worsening bilateral pleural effusions, right greater than left, acute hypercapnic respiratory failure. The patient will be admitted into the intensive care unit (ICU) for the following acute issues. 1. Acute hypercapnic respiratory failure, most likely secondary to congestive heart failure (CHF) exacerbation, diastolic dysfunction. The patient will be kept nothing by mouth while on BiPAP to decrease the risk of aspiration. The patient is kept on input and output, daily weights, continue with Lasix diuresis every 6 hours, 2 liter fluid restriction. The patient was not wheezing on examination, but did receive IV Solu-Medrol on admission. She was given IV Zosyn for presumed pneumonia of the right base and continued on ceftriaxone and azithromycin for now. 2. Acute exacerbation OF chf, diastolic dysfunctionwith preserved ejection fraction. The patient will be kept in the intensive care unit (ICU) under telemetry. Cardiac markers will be cycled. Previous echocardiogram was done 12/21 showing ejection fraction of 60 to 65% of grade 1 diastolic dysfunction. No evidence of mitral stenosis. There is mild pulmonary hypertension and mild tricuspid regurgitation. The patient will be given Lasix 40 mg IV every 6 hours. Net negative balance of 1 liter goal daily. Strict input and output, daily weight and fluid restriction until the patient's respiratory status has significantly improved. 3. Chronic hypoxic respiratory failure due to end-stage chronic obstructive pulmonary disease (COPD) and congestive heart failure. The patient is kept on supplemental oxygen, keep saturations between 80 to 92%. Will rule out acute pneumonia. Currently on IV ceftriaxone and azithromycin for presumed pneumonia. The patient does have a slight white count, no fever or chills however. No sputum production. Blood cultures have been obtained. Will check urine, streptococcal antigen and urine Legionella antigen. The patient is covered for both gram negative infection, as well as atypicals. Will obtain methicillin-resistant Staphylococcus aureus (MRSA) screen and respiratory panel as well, as the patient has had prior history of human metapneumovirus. 4. Type 2 diabetes. Will check A1c. The patient is kept on hypoglycemic protocol, insulin sliding scale for now. No intravenous fluids. Once respiratory status has, will consider resumption of diet and if mentation has improved. 5. Acute encephalopathy, most likely secondary to hypercapnic respiratory failure secondary to congestive heart failure (CHF) exacerbation, uti present on admission, and probable pneumonia. The patient is kept nothing by mouth due to aspiration risks. Swallow evaluation will be obtained. CT of the brain had to be repeated due to question of hematoma. Repeat CT head showed no acute bleed. The patient will be monitored every 4 hours with neuro checks, telemetry in the intensive care unit (ICU). 6. Dyslipidemia. Continue on Lipitor. 7. Hypertensive heart disease. Continue on diltiazem 120 mg daily 8. Chronic obstructive pulmonary disease (COPD). No active wheezing on exam. Received IV Solu-Medrol 125 mg. Continue with DuoNeb and currently BiPAP managed by pulmonary. 9. Cor pulmonale with pulmonary artery hypertension. Continue on Lasix diuresis. 10. UTI present on admission on ceftriaxone VS, I&O, 24H, Fishbone Vital Signs/I&O Vital Signs Date Time Temp Pulse Resp B/P (MAP) Pulse Ox O2 Delivery O2 Flow Rate FiO2 05/27/19 07:31 96 BIPAP/CPAP 40 05/27/19 03:01 83 113/60 (77) 05/27/19 00:26 97.1 18 05/26/19 09:08 3.0 I&O- Last 24 Hours up to 6 AM 05/27/19 06:00 Intake Total 1065 ml Output Total 1525 ml Balance -460 ml Laboratory Data 24H LABS Laboratory Tests 2 05/26/19 09:20: Immature Granulocyte % (Auto) 1.9, White Blood Count 14.8H, Red Blood Count 3.72L, Hemoglobin 10.5L, Hematocrit 36.9, Mean Corpuscular Volume 99.2H, Mean Corpuscular Hemoglobin 28.2, Mean Corpuscular Hemoglobin Concent 28.5L, Red Cell Distribution Width 15.2H, Platelet Count 302, Neutrophils (%) (Auto) 78.1H, Lymphocytes (%) (Auto) 13.1L, Monocytes (%) (Auto) 6.0H, Eosinophils (%) (Auto) 0.2, Basophils (%) (Auto) 0.7, Neutrophils # (Auto) 11.6H, Lymphocytes # (Auto) 1.9, Monocytes # (Auto) 0.9H, Eosinophils # (Auto) 0.0, Basophils # (Auto) 0.1, Nucleated Red Blood Cells % (auto) 0.2H, Anion Gap , Glomerular Filtration Rate > 60.0, Calcium Level 8.7L, Aspartate Amino Transf (AST/SGOT) 26, Alanine Aminotransferase (ALT/SGPT) 62, Alkaline Phosphatase 144H, Total Bilirubin 0.2, Direct Bilirubin < 0.1, Ammonia 24, Total Creatine Kinase 36, Creatine Kinase MB 2.3, Creatine Kinase MB Relative Index 6.39H, Troponin I 0.04, ED-Mhl-D-Type Natriuretic Peptide 921H, Total Protein 5.9L, Albumin 2.6L, Albumin/Globulin Ratio 0.79L, Thyroid Stimulating Hormone (TSH) 0.989, Salicylates Level < 1.7L, Acetaminophen Level < 2.0L, Ethyl Alcohol Level < 0.003 05/26/19 09:29: Blood Gas Bicarbonate Standard 45.7H, Arterial Blood pH 7.210*L, Arterial Blood Partial Pressure CO2 139.6*H, Arterial Blood Partial Pressure O2 123.8H, Arterial Blood Total CO2 58.9H, Arterial Blood HCO3 54.6H, Arterial Blood Base Excess 21.3H, Arterial Blood Oxygen Saturation 98.3 05/26/19 09:43: Lactic Acid Level 0.6 05/26/19 10:29: Bedside Glucose (Misc Panel) 117H 05/26/19 10:40: Urine Color YELLOW, Urine Appearance CLOUDYH, Urine pH 5.0, Urine Specific [place] 1.014, Urine Protein 1+H, Urine Glucose (UA) NEGATIVE, Urine Ketones NEGATIVE, Urine Blood 3+H, Urine Nitrite POSITIVEH, Urine Bilirubin NEGATIVE, Urine Urobilinogen 0.2, Urine Leukocyte Esterase 2+H, Urine WBC (Auto) 139H, Urine RBC (Auto) 99H, Urine Hyaline Casts (Auto) 0, Urine Bacteria (Auto) 1+H, Urine Squamous Epithelial Cells 8, Urine Sperm (Auto) , Urine Amphetamines Screen NEGATIVE, Urine Benzodiazepines Screen NEGATIVE, Urine Opiates Screen NEGATIVE, Urine Methadone Screen NEGATIVE, Urine Barbiturates Screen NEGATIVE, Urine Phencyclidine Screen NEGATIVE, Urine Cocaine Metabolite Screen NEGATIVE, Urine Cannabinoids Screen NEGATIVE 05/26/19 11:44: POC pH (Misc Panel) 7.294L, POC Base Excess (Misc Panel) 24.0H, POC Saturated Percent O2 (Misc) 94L, POC pO2 (Misc Panel) 86.0, POC pCO2 (Misc Panel) 103.4*H, POC HCO3 (Misc Panel) 50.1H, POC Total CO2 (Misc Panel) > 50.0H 05/26/19 15:10: Methicillin-Resist S.aureus DNA PCR POSITIVEH 05/26/19 17:19: Blood Gas Bicarbonate Standard 41.5H, Arterial Blood pH 7.326L, Arterial Blood Partial Pressure CO2 93.1*H, Arterial Blood Partial Pressure O2 81.2, Arterial Blood Total CO2 50.4H, Arterial Blood HCO3 47.5H, Arterial Blood Base Excess 17.5H, Arterial Blood Oxygen Saturation 95.9 05/26/19 17:54: Total Creatine Kinase 32, Creatine Kinase MB 1.7, Creatine Kinase MB Relative Index 5.31H, Troponin I 0.03# 05/26/19 18:26: 05/27/19 00:02: Total Creatine Kinase 25L, Creatine Kinase MB 1.4, Creatine Kinase MB Relative Index 5.60H, Troponin I < 0.02# 05/27/19 04:50: Total Creatine Kinase 28, Creatine Kinase MB 1.1, Creatine Kinase MB Relative Index 3.93, Troponin I 0.02, Nucleated Red Blood Cells % (auto) 0.2H, Anion Gap 0L, Glomerular Filtration Rate > 60.0, Blood Urea Nitrogen 23#H, Creatinine 0.92, Sodium Level 139, Potassium Level 4.4, Chloride Level 93L, Carbon Dioxide Level 46H, Calcium Level 8.7L, Aspartate Amino Transf (AST/SGOT) 26, Alanine Aminotransferase (ALT/SGPT) 59, Alkaline Phosphatase 132H, Total Bilirubin 0.2, Total Protein 6.0L, Albumin 2.5L, Albumin/Globulin Ratio 0.71L 05/27/19 05:53: Blood Gas Bicarbonate Standard 41.1H, Arterial Blood pH 7.409, Arterial Blood Partial Pressure CO2 72.5*H, Arterial Blood Partial Pressure O2 97.3, Arterial Blood Total CO2 47.0H, Arterial Blood HCO3 44.8H, Arterial Blood Base Excess 17.2H, Arterial Blood Oxygen Saturation 97.7 CBC/BMP Laboratory Tests 05/26/19 09:20 Red Blood Count 3.72 L, Mean Corpuscular Volume 99.2 H, Mean Corpuscular Hemoglobin 28.2, Mean Corpuscular Hemoglobin Concent 28.5 L, Red Cell Distribution Width 15.2 H, Neutrophils (%) (Auto) 78.1 H, Lymphocytes (%) (Auto) 13.1 L, Monocytes (%) (Auto) 6.0 H, Eosinophils (%) (Auto) 0.2, Basophils (%) (Auto) 0.7, Neutrophils # (Auto) 11.6 H, Lymphocytes # (Auto) 1.9, Monocytes # (Auto) 0.9 H, Eosinophils # (Auto) 0.0, Basophils # (Auto) 0.1 05/27/19 04:50 Red Blood Count 3.68 L, Mean Corpuscular Volume 95.1, Mean Corpuscular Hemoglobin 28.3, Mean Corpuscular Hemoglobin Concent 29.7 L, Red Cell Distribution Width 15.2 H, Calcium Level 8.7 L, Aspartate Amino Transf (AST/SGOT) 26, Alanine Aminotransferase (ALT/SGPT) 59, Total Creatine Kinase 28, Alkaline Phosphatase 132 H, Total Bilirubin 0.2, Total Protein 6.0 L, Albumin 2.5 L Microbiology Microbiology 05/26/19 Blood Culture, Received Pending 05/26/19 Blood Culture, Received Pending 05/26/19 Respiratory Virus Panel (PCR) ([facility]) - Final, Complete 05/26/19 Urine Culture, Received Pending AZEEM QUISPE MD May 27, 2019 07:53
[2019-05-27] MEDS ORDERED: VANCOMYCIN HCL 1,000 MG, VIAL MATE ADAPTER 1 EACH in D5W 250 ML IV SCH (08:00)
--- NOTE | 2019-05-27 08:56 | REP ---
Portable chest, and 06:00 a.m., single AP view with the patient sitting: Comparison is 05/26/2019. The right pleural effusion is unchanged. There is effacement of the left costophrenic angle. This could represent a left pleural effusion, left lower lobe infiltrate, or artifact from portable positioning. Lung worrell otherwise clear and unchanged. Cardiac size is normal. The patti, mediastinum, skeletal structures are unchanged. Impression: The right pleural effusion is unchanged. New left pleural effusion/ left left lower lobe infiltrate versus artifact from portable positioning. Electronically Signed by Cayetano Hall MD 05/27/2019 08:47 A
[2019-05-27] MEDS: APIXABAN 5 MG TAB (ELIQUIS) PO SCH ×2 (09:21→20:12)
[2019-05-27] MEDS: OMEPRAZOLE 20 MG CAP PO SCH (09:22)
[2019-05-27] MEDS: predniSONE 10 MG TAB PO SCH (09:22)
[2019-05-27] MEDS: SPIRONOLACTONE 25 MG TAB PO SCH (09:22)
[2019-05-27] MEDS: guaiFENesin ER 600 MG TAB PO SCH ×2 (09:22→20:12)
[2019-05-27] MEDS: POLYVINYL ALCOHOL OPHTH SOLN 15 ML(LIQUITEARS) OU SCH ×4 (09:23→20:10)
--- NOTE | 2019-05-27 10:31 | IPN ---
DATE: 05/27/2019 I again attended Jocelyne Silva here in the intensive care unit. Patient was examined and chart was reviewed. From a mental status standpoint she is back to her baseline. She is awake, alert and appropriate and follows all commands. Maximum temperature overnight 97.7, blood pressure 109 to 120's. Heart rate generally in the 80's to 90's and respiratory rate 18 to 20 without accessory muscle use. Midnight to midnight in and outs, 1065 in with 1125 out. White blood cell count 12.9, hemoglobin 10.4, platelet count 276,000, sodium 139, potassium 4.4, chloride 93, C02 46, BUN 23, creatinine 0.92. Glucose 172. Chest x-ray shows no new findings, more consistent with volume overload. On exam, she has non-invasive mask replacement. She is awake, alert and follows all commands. She moves all extremities. Pupils are active. Sclera is clear. Trachea is midline. Chest shows diminished but symmetric expansion, a little more diminished at the bases. There are some opening crackles. No other focal adventitious breath sounds are identified. Heart exam generally regular but distant. Peripheral pulses are diminished but palpable trace edema. Abdomen is obese, soft with active bowel sounds. No masses. Neurologic, she is awake, alert and appropriate. She follows all command. Psychiatric normal mood and affect. IMPRESSION: 1. Acute on chronic respiratory failure with hypoxemic and hypercapnic. 2. Suspected LIZETH, never able to get the lab. 3. Heart failure. 4. Advanced obstructive lung disease. 5. DO NOT RESUSCITATE DO NOT INTUBATE status. RECOMMENDATIONS: At this point we will again wean her non-invasive support. My suspicion is that she will do well. Intermittently she is required naps and again we will see if she is interested in getting to the lab to be titrated but historically has refused. At this point we will proceed as outlined above. She has an extremely high likelihood for recurrent hospitalizations as long as her and the daughter wish to continue intermittent support. Further recommendations will be made in the progress records.
[2019-05-27] MEDS: cefTRIAXone SOD 2 GM in D5W MINI-BAG PLUS 50 ML IV SCH (14:51)
[2019-05-27] MEDS: AZITHROMYCIN INJ 500 MG, VIAL MATE ADAPTER 1 EACH in D5W 250 ML IV SCH (17:32)
[2019-05-27] MEDS: ATORVASTATIN 20 MG TAB PO SCH (20:11)
[2019-05-28] VITALS (12 sets, daily range): BP systolic 110–146; BP diastolic 56–68
[2019-05-28] MEDS: FUROSEMIDE 40 MG/4 ML VIAL (J1940) IV SCH ×4 (01:05→20:05)
[2019-05-28 07:10] LABS: HEMATOCRIT 34.4 % (36.0-47.0); HEMOGLOBIN 10.4 g/dl (12.0-15.5); MEAN CORPUSCULAR HEMOGLOBIN 28.3 pg (27.0-33.0); MEAN CORPUSCULAR HGB CONC 30.2 g/dl (32.0-36.5); MEAN CORPUSCULAR VOLUME 93.7 fl (80.0-96.0); PLATELET COUNT, AUTOMATED 294 10^3/uL (150-450); RED BLOOD COUNT 3.67 10^6/uL (4.00-5.40); WHITE BLOOD COUNT 13.6 10^3/uL (4.0-10.0)
[2019-05-28 07:47] LABS: BLOOD UREA NITROGEN 24 MG/DL (7-18); CALCIUM LEVEL 9.1 MG/DL (8.8-10.2); CARBON DIOXIDE LEVEL 54 MEQ/L (21-32); CHLORIDE LEVEL 91 MEQ/L (98-107); CREATININE FOR GFR 1.01 MG/DL (0.55-1.30); GLUCOSE, FASTING 99 MG/DL (70-100); POTASSIUM SERUM 3.3 MEQ/L (3.5-5.1); SODIUM LEVEL 140 MEQ/L (136-145); VANCOMYCIN LEVEL TROUGH 12.6 UG/ML (10.0-20.0)
[2019-05-28] MEDS: guaiFENesin ER 600 MG TAB PO SCH ×2 (09:19→22:06)
[2019-05-28] MEDS: predniSONE 10 MG TAB PO SCH (09:19)
[2019-05-28] MEDS: LevoFLOXacin IV 500 MG in APPROPRIATE DILUENT 1 EA IV SCH (09:19)
[2019-05-28] MEDS: OMEPRAZOLE 20 MG CAP PO SCH (09:19)
[2019-05-28] MEDS: APIXABAN 5 MG TAB (ELIQUIS) PO SCH (09:19)
[2019-05-28] MEDS: SPIRONOLACTONE 25 MG TAB PO SCH (09:19)
[2019-05-28] MEDS: POLYVINYL ALCOHOL OPHTH SOLN 15 ML(LIQUITEARS) OU SCH ×4 (09:20→22:07)
--- NOTE | 2019-05-28 10:24 | IPN ---
DATE OF VISIT: 05/28/2019 I again attended Jocelyne Silva. She is maintained off of BiPAP this morning. She feels her respiratory status is at her baseline. Some intermittent sputum production. She is on nasal cannula. She continues to be diuresed by the primary service and is negative 2 liters for yesterday. Chest x-ray does show some improvement. White blood cell count 13.6, hemoglobin 10.4 and platelet count 294,000. Sodium 140, potassium 3.3, chloride 91, CO2 54, BUN 24, creatinine 1.01. On exam, she is awake, alert and appropriate. Her baseline is with dyspnea with exertion. HEENT: Otherwise normocephalic, atraumatic. Pupils react. Neck supple. Trachea is midline. Chest: Markedly diminished, but symmetric expansion. There are some rhonchi that do not clear completely with cough. There are basilar crackles. No rubs or egophony. Cardiac Exam: Generally regular. Peripheral pulses diminished, but palpable. Trace edema. Abdomen obese, soft, with active bowel sounds. No convincing organomegaly or masses. Extremities: Without cyanosis or clubbing. Neurologically, she is awake, alert and appropriate. IMPRESSION: 1. Acute on chronic respiratory failure with hypoxemia and hypercapnic. 2. Congestive heart failure. 3. Suspected underlying obstructive sleep apnea syndrome. 4. Essentially end stage obstructive lung disease. RECOMMENDATIONS: At this point, she is being diuresed by the primary service. Care should be taken as her bicarbonate is being driven up and she will have no choice but to retain more carbon dioxide. She has been able to reset her pH, but care with her diuretics is paramount. Historically, she has never made it to the lab for formal sleep study as generally when the time comes she changes her mind. She generally does wear the noninvasive device when she is here. For now, will try her off and see how she does. We will use it for shortness of breath if needed. At this point, we will sign off. She follows with Dr. Leo in the office and should be seen several weeks after discharge. Please do not hesitate to contact us with issues with which we can be of assistance.
[2019-05-28] MEDS ORDERED: POTASSIUM CHLORIDE 10 MEQ SR TABLET PO ONE (10:45)
--- NOTE | 2019-05-28 12:05 | REP ---
Portable chest, 07:44 a.m., single AP view with the patient sitting: Comparison is 05/27/2019. The right pleural effusion is unchanged. There is no left pleural effusion. The finding on the comparison study was likely artifact. Lung worrell otherwise clear. Cardiac size is normal. The patti, mediastinum, skeletal structures are unchanged. Impression: The right pleural effusion is unchanged. There is no left pleural effusion. Electronically Signed by Cayetano Hall MD 05/28/2019 07:50 A
--- NOTE | 2019-05-28 15:37 | IPNPDOC ---
Date Seen The patient was seen on 05/28/19. Progress Note SUBJECTIVE: confused per RN overnight, but cooperative. stable on table top. still c/o sob, but no cough, fever, or chills. cxr: persistent rll effusion diuresed well . no c/o lightheadedness or dizziness. OBJECTIVE: PHYSICAL EXAMINATION VITALS PLS SEE BELOW GENERAL: aaoX1 to person only. mask with dentures neck is Thick unable to assess jugular venous distension (JVD), thyromegaly or cervical lymphadenopathy. LUNGS:Diminished right base HEART: S1, S2. Regular rate and rhythm. ABDOMEN: Obese, soft, nontender, nondistended. Timmons catheter in place. EXTREMITIES: +edema LABORATORY DATA, IMAGING STUDIES, MICROBIOLOGY: PENDING ASSESSMENT AND PLAN: 83-year-old female presented to the emergency room with altered mental status, found to have worsening bilateral pleural effusions, right greater than left, acute hypercapnic respiratory failure. The patient will be admitted into the intensive care unit (ICU) for the following acute issues. Acute hypercapnic respiratory failure, resolved secondary to congestive heart failure (CHF) exacerbation, diastolic dysfunction. on input and output, daily weights, continue with Lasix diuresis every 6 hours, 2 liter fluid restriction. The patient was not wheezing on examination, but did receive IV Solu-Medrol on admission. She was given IV Zosyn for presumed pneumonia of the right base and s/p ceftriaxone and azithromycin. now on levaquin for UTI Acute exacerbation OF chf, diastolic dysfunction with preserved ejection fraction. on telemetry. Previous echocardiogram was done 12/21 showing ejection fraction of 60 to 65% of grade 1 diastolic dysfunction. No evidence of mitral stenosis. There is mild pulmonary hypertension and mild tricuspid regurgitation. The patient will be given Lasix 40 mg IV every 6 hours. Net negative balance of 1 liter goal daily. Strict input and output, daily weight and fluid restriction until the patient's respiratory status has significantly improved. Chronic hypoxic respiratory failure due to end-stage chronic obstructive pulmonary disease (COPD) and congestive heart failure. The patient is kept on supplemental oxygen, keep saturations between 80 to 92%. Type 2 diabetes. on hypoglycemic protocol, insulin sliding scale for now. resumed on home meds and consistent carbs diet Acute encephalopathy,improved secondary to hypercapnic respiratory failure secondary to congestive heart failure (CHF) exacerbation, uti present on admission. CT head negative Dyslipidemia. on Lipitor. Hypertensive heart disease. on diltiazem 120 mg daily Chronic obstructive pulmonary disease (COPD). No active wheezing on exam. Received IV Solu-Medrol 125 mg. Continue with DuoNeb and table top Cor pulmonale with pulmonary artery hypertension. on Lasix diuresis. UTI present on admission s/p ceftriaxone on levaquin disposition: transferred to [facility] VS, I&O, 24H, Fishbone Vital Signs/I&O Vital Signs Date Time Temp Pulse Resp B/P (MAP) Pulse Ox O2 Delivery O2 Flow Rate FiO2 05/28/19 14:00 98.2 88 18 112/67 (82) 95 2.0 05/28/19 00:00 45 05/27/19 07:31 BIPAP/CPAP I&O- Last 24 Hours up to 6 AM 05/28/19 06:00 Intake Total 1400 ml Output Total 3925 ml Balance -2525 ml Laboratory Data 24H LABS Laboratory Tests 2 05/28/19 01:03: Bedside Glucose (Misc Panel) 122H 05/28/19 07:00: Nucleated Red Blood Cells % (auto) 0.0, Anion Gap , Glomerular Filtration Rate 56.0, Blood Urea Nitrogen 24H, Creatinine 1.01, Sodium Level 140, Potassium Level 3.3#L, Chloride Level 91L, Carbon Dioxide Level 54H, Calcium Level 9.1, Vancomycin Level Trough 12.6 CBC/BMP Laboratory Tests 05/28/19 07:00 Red Blood Count 3.67 L, Mean Corpuscular Volume 93.7, Mean Corpuscular He moglobin 28.3, Mean Corpuscular Hemoglobin Concent 30.2 L, Red Cell Distribution Width 15.3 H, Calcium Level 9.1 Microbiology Microbiology 05/26/19 Blood Culture - Preliminary, Resulted No Growth after 48 hours. All Specime... 05/26/19 Blood Culture - Preliminary, Resulted No Growth after 48 hours. All Specime... 05/26/19 Respiratory Virus Panel (PCR) ([facility]) - Final, Complete 05/26/19 Urine Culture - Preliminary, Resulted E.coli Esbl AZEEM QUISPE MD May 28, 2019 15:37
[2019-05-28 15:41] LABS: LDH LACTATE DEHYDROGENASE 247 U/L (84-246)
[2019-05-28] MEDS ORDERED: DEXTROSE 50% 50 ML SYRINGE IV PRN (15:45)
[2019-05-28] MEDS ORDERED: GLUCOSE 4 GM CHEW TABLET PO PRN (15:45)
[2019-05-28] MEDS ORDERED: GLUCAGON FOR INJ 1 MG VIAL (J1610) SC PRN (15:45)
[2019-05-28] MEDS: HumaLOG INSULIN (NovoLOG) PER UNIT SC SCH ×2 (17:33→21:00)
[2019-05-28] MEDS: ATORVASTATIN 20 MG TAB PO SCH (22:04)
[2019-05-28] MEDS: POTASSIUM CHLORIDE 10 MEQ SR TABLET PO SCH (22:06)
[2019-05-29] MEDS: FUROSEMIDE 40 MG/4 ML VIAL (J1940) IV SCH ×4 (02:05→21:21)
[2019-05-29 06:00] VITALS: BP 130/71
[2019-05-29 06:17] LABS: HEMATOCRIT 35.2 % (36.0-47.0); HEMOGLOBIN 10.4 g/dl (12.0-15.5); MEAN CORPUSCULAR HEMOGLOBIN 27.2 pg (27.0-33.0); MEAN CORPUSCULAR HGB CONC 29.5 g/dl (32.0-36.5); MEAN CORPUSCULAR VOLUME 92.1 fl (80.0-96.0); PLATELET COUNT, AUTOMATED 300 10^3/uL (150-450); RED BLOOD COUNT 3.82 10^6/uL (4.00-5.40)
[2019-05-29 07:10] LABS: BLOOD UREA NITROGEN 19 MG/DL (7-18); CALCIUM LEVEL 9.1 MG/DL (8.8-10.2); CARBON DIOXIDE LEVEL 47 MEQ/L (21-32); CHLORIDE LEVEL 96 MEQ/L (98-107); CREATININE FOR GFR 0.89 MG/DL (0.55-1.30); GLOMERULAR FILTRATION RATE > 60.0 (>32); GLUCOSE, FASTING 98 MG/DL (70-100); POTASSIUM SERUM 3.9 MEQ/L (3.5-5.1); SODIUM LEVEL 143 MEQ/L (136-145)
[2019-05-29] MEDS: HumaLOG INSULIN (NovoLOG) PER UNIT SC SCH ×4 (07:30→21:00)
[2019-05-29] MEDS: LevoFLOXacin IV 500 MG in APPROPRIATE DILUENT 1 EA IV SCH (08:47)
[2019-05-29] MEDS: POTASSIUM CHLORIDE 10 MEQ SR TABLET PO SCH ×2 (08:48→21:22)
[2019-05-29] MEDS: SPIRONOLACTONE 25 MG TAB PO SCH (08:49)
[2019-05-29] MEDS: guaiFENesin ER 600 MG TAB PO SCH ×2 (08:49→21:22)
[2019-05-29] MEDS: OMEPRAZOLE 20 MG CAP PO SCH (08:49)
[2019-05-29] MEDS: predniSONE 10 MG TAB PO SCH (08:50)
[2019-05-29] MEDS: POLYVINYL ALCOHOL OPHTH SOLN 15 ML(LIQUITEARS) OU SCH ×4 (08:51→21:22)
[2019-05-29] MEDS: ADVAIR HFA 230/21MCG INHALER INH SCH ×2 (09:00→20:40)
[2019-05-29] MEDS: IPRATROPIUM 0.5MG/ALBUTEROL 2.5MG INH SOL UD 3ML (DUONEB)(J7620) NEB SCH ×3 (11:29→20:00)
--- NOTE | 2019-05-29 11:35 | IPN ---
DATE: 05/29/2019 I saw Jocelyne corea on the medical/surgical unit. The patient was examined and the chart was reviewed. I reviewed her laboratories and her vital signs. These are all in the EMR. She is awake, alert and appropriate. She has intermittent cough with some pale yellow sputum at times. We ordered her nebulizers, as well as her inhalers. PHYSICAL EXAMINATION: She is awake, alert and appropriate. Denies any dyspnea. Pupils react. Sclerae clear. Trachea is in the midline. Lungs are diminished but symmetric expansion. Some fine crackles at the bases. End expiratory squeak only with forced maneuver. No convincing rhonchi. Cardiac exam is distant but regular. Peripheral pulses palpable with trace edema at best. Abdomen is obese, benign. Extremities with no cyanosis or clubbing. Neurologically, awake, alert and appropriate. Psychiatric, normal mood and affect. IMPRESSION: 1. Acute on chronic respiratory failure, both hypoxemic and hypercapnic. 2. Obstructive sleep apnea. 3. End stage obstructive lung disease. 4. DO NOT RESUSCITATE, DO NOT INTUBATE status. 5. Congestive heart failure (CHF). RECOMMENDATIONS: At this point, we restarted her pulmonary medications. She has essentially remained off of noninvasive support. Historically, [facility] If at any point she reconsiders and wishes to be treated in the outpatient setting, we can try to get her into the sleep lab. At this point, we will sign off her case here in the hospital but are available for any questions that pertain to her pulmonary or sleep status.
[2019-05-29 14:00] VITALS: BP 112/62
[2019-05-29 14:25] VITALS: BP 130/84
[2019-05-29 14:29] LABS: BODY FLUID CULTURE Not Indicated (.); LEGIONELLA ANTIGEN URINE Negative (Negative); ORGANISM ID Not indicated. (.); SPECIMEN SOURCE Urine (.); URINE STREP PNEUMONIAE ANTIGEN Negative (Negative)
--- NOTE | 2019-05-29 16:51 | IPNPDOC ---
Date Seen The patient was seen on 05/29/19. Progress Note SUBJECTIVE: breathing better with improved sob, cooperative with tabletop per RN, but most likely will be noncompliant once returns to SNF. denies fever, chills, but scant sputum production when she coughs, and says, "thick white sticky stuff" comes out. Improved PND, still with 2 pillow orthopnea, and LE is better b/l. denies dizziness, lightheadedness, but has not ambulated much despite improvement in respiratory status. no other issues per RN. still gets confused at night, but re-directable and orients without needing a sitter. OBJECTIVE: PHYSICAL EXAMINATION VITALS PLS SEE BELOW GENERAL: aaoX1 to person only. no conversational dyspnea,speaks in full sentences,no thyromegaly or cervical lymphadenopathy. thick neck LUNGS:Diminished right base. improved aeration. AE better in left lung. HEART: S1, S2. Regular rate and rhythm. ABDOMEN: Obese, soft, nontender, nondistended. Timmons catheter in place. EXTREMITIES: trace b/l edema. LABORATORY DATA, IMAGING STUDIES, MICROBIOLOGY: PENDING ASSESSMENT AND PLAN: 83-year-old female presented to the emergency room with altered mental status, found to have worsening bilateral pleural effusions, right greater than left, acute hypercapnic respiratory failure. The patient was admitted into the intensive care unit (ICU) for the following acute issues. Acute hypercapnic respiratory failure, resolved secondary to congestive heart failure (CHF) exacerbation, diastolic dysfunction. on strict input and output, daily weights, Lasix diuresis every 6 hours, 2 liter fluid restriction. The patient was not wheezing on examination, but did receive IV Solu-Medrol on admission. She was given IV Zosyn for presumed pneumonia of the right base and s/p ceftriaxone and azithromycin. now on levaquin for UTI. Acute exacerbation OF chf, diastolic dysfunction with preserved ejection fraction. on telemetry. Previous echocardiogram was done 12/21 showing ejection fraction of 60 to 65% of grade 1 diastolic dysfunction. No evidence of mitral stenosis. There is mild pulmonary hypertension and mild tricuspid regurgitation. on Lasix 40mg IV every 6 hours. Net negative balance of 1 liter goal daily. Strict input and output, daily weight and 2 fluid restriction . improved, and off bipap. net negative 3.6 liters since admission. Persistent right pleural effusion, unchanged despite diuresis thoracentesis planned for tomorrow . needed ac held for 48hrs. consent obtained from pt's daughter. pleural fluid analysis ordered. on levaquin for UTI. no sputum sample. afebrile, with persistent leukocytosis may need to change abx depending on pleural fluid culture or empirically if pt worsens clinically. Chronic hypoxic respiratory failure due to end-stage chronic obstructive pulmonary disease (COPD) and congestive heart failure. The patient is kept on supplemental oxygen, keep saturations between 80 to 92%. Type 2 diabetes. on hypoglycemic protocol, insulin sliding scale for now. resumed on home meds and consistent carbs diet Acute encephalopathy,improved secondary to hypercapnic respiratory failure secondary to congestive heart failure (CHF) exacerbation, uti present on admission. CT head negative Dyslipidemia. on Lipitor. Hypertensive heart disease. on diltiazem 120 mg daily Chronic obstructive pulmonary disease (COPD). No active wheezing on exam. Received IV Solu-Medrol 125 mg. Continue with DuoNeb and table top Cor pulmonale with pulmonary artery hypertension. on Lasix diuresis. UTI present on admission s/p ceftriaxone on levaquin disposition:stable on medsurg floor. on tabletop. VS, I&O, 24H, [facility] Vital Signs/I&O Vital Signs Date Time Temp Pulse Resp B/P (MAP) Pulse Ox O2 Delivery O2 Flow Rate FiO2 05/29/19 14:25 130/84 (99) 05/29/19 14:00 96.9 91 20 95 2.0 05/28/19 00:00 45 05/27/19 07:31 BIPAP/CPAP I&O- Last 24 Hours up to 6 AM 05/29/19 06:00 Intake Total 1060 ml Output Total 2650 ml Balance -1590 ml Laboratory Data 24H LABS Laboratory Tests 2 05/28/19 21:55: Bedside Glucose (Misc Panel) 151H 05/29/19 05:42: Nucleated Red Blood Cells % (auto) 0.0, Anion Gap 0L, Glomerular Filtration Rate > 60.0, Blood Urea Nitrogen 19H, Creatinine 0.89, Sodium Level 143, Potassium Level 3.9, Chloride Level 96L, Carbon Dioxide Level 47H, Calcium Level 9.1 05/29/19 06:15: Bedside Glucose (Misc Panel) 100 05/29/19 11:43: Bedside Glucose (Misc Panel) 142H CBC/BMP Laboratory Tests 05/29/19 05:42 Red Blood Count 3.82 L, Mean Corpuscular Volume 92.1, Mean Corpuscular Hemoglobin 27.2, Mean Corpuscular Hemoglobin Concent 29.5 L, Red Cell Distribution Width 15.4 H, Calcium Level 9.1 Microbiology Microbiology 05/26/19 Blood Culture - Preliminary, Resulted No Growth after 72 hours. All specime... 05/26/19 Blood Culture - Preliminary, Resulted No Growth after 72 hours. All specime... 05/26/19 Respiratory Virus Panel (PCR) ([facility]) - Final, Complete 05/26/19 Urine Culture - Final, Complete E.coli Esbl AZEEM QUISPE MD May 29, 2019 16:47
[2019-05-29] MEDS: ATORVASTATIN 20 MG TAB PO SCH (21:22)
[2019-05-29 22:00] VITALS: BP 137/64
[2019-05-30] MEDS: FUROSEMIDE 40 MG/4 ML VIAL (J1940) IV SCH ×3 (02:16→14:14)
[2019-05-30] MEDS: IPRATROPIUM 0.5MG/ALBUTEROL 2.5MG INH SOL UD 3ML (DUONEB)(J7620) NEB SCH ×7 (03:35→22:34)
[2019-05-30 06:00] VITALS: BP 131/71
[2019-05-30 06:29] LABS: HEMATOCRIT 35.9 % (36.0-47.0); HEMOGLOBIN 10.8 g/dl (12.0-15.5); MEAN CORPUSCULAR HEMOGLOBIN 27.6 pg (27.0-33.0); MEAN CORPUSCULAR HGB CONC 30.1 g/dl (32.0-36.5); MEAN CORPUSCULAR VOLUME 91.6 fl (80.0-96.0); PLATELET COUNT, AUTOMATED 297 10^3/uL (150-450); RED BLOOD COUNT 3.92 10^6/uL (4.00-5.40); WHITE BLOOD COUNT 16.1 10^3/uL (4.0-10.0)
[2019-05-30 06:58] LABS: CALCIUM LEVEL 8.9 MG/DL (8.8-10.2); CREATININE FOR GFR 1.05 MG/DL (0.55-1.30); GLOMERULAR FILTRATION RATE 53.5 (>32); POTASSIUM SERUM 4.8 MEQ/L (3.5-5.1)
[2019-05-30] MEDS: ADVAIR HFA 230/21MCG INHALER INH SCH ×2 (07:56→19:55)
[2019-05-30] MEDS: POTASSIUM CHLORIDE 10 MEQ SR TABLET PO SCH ×2 (08:27→20:21)
[2019-05-30] MEDS: LevoFLOXacin IV 500 MG in APPROPRIATE DILUENT 1 EA IV SCH (08:27)
[2019-05-30] MEDS: OMEPRAZOLE 20 MG CAP PO SCH (08:28)
[2019-05-30] MEDS: guaiFENesin ER 600 MG TAB PO SCH ×2 (08:28→20:22)
[2019-05-30] MEDS: predniSONE 10 MG TAB PO SCH (08:28)
[2019-05-30] MEDS: SPIRONOLACTONE 25 MG TAB PO SCH (08:28)
[2019-05-30] MEDS: POLYVINYL ALCOHOL OPHTH SOLN 15 ML(LIQUITEARS) OU SCH ×4 (08:30→20:22)
[2019-05-30] MEDS: HumaLOG INSULIN (NovoLOG) PER UNIT SC SCH ×4 (08:30→21:00)
[2019-05-30 13:25] LABS: PH BODY FLUID 7.671 UNITS (NOT ESTABLISHED); SOURCE, BODY FLUID pH PLEURAL
[2019-05-30 13:33] LABS: APPEARANCE, BODY FLUID CLOUDY (CLEAR); PLEURAL FL COLOR YELLOW (COLORLESS); SOURCE, BODY FLUID PLEURAL
--- NOTE | 2019-05-30 13:35 | REP ---
Chest three views including a single PA and two lateral views post thoracentesis: Comparison is a 2018. The right pleural effusion has significantly decreased in size. There is no pneumothorax. There is atelectasis in the left lower lobe. The upper lobes are clear. Cardiac size is normal and unchanged. The patti, mediastinum, skeletal structures are unremarkable. Impression: No pneumothorax. The right pleural effusion has decreased in size. Electronically Signed by Cayetano Hall MD 05/30/2019 01:27 P
[2019-05-30 14:00] VITALS: BP 138/75
[2019-05-30 14:01] LABS: AMYLASE, BODY FLUID 28 U/L (NOT ESTABLISHED); CHOLESTEROL, BODY FLUID < 50 MG/DL (NOT ESTABLISHED); LDH, BODY FLUID 104 U/L (NOT ESTABLISHED); SOURCE, BODY FLUID ALBUMIN PLEURAL; SOURCE, BODY FLUID AMYLASE PLEURAL; SOURCE, BODY FLUID CHOL PLEURAL; SOURCE, BODY FLUID GLUCOSE PLEURAL; SOURCE, BODY FLUID LDH PLEURAL; SOURCE, BODY FLUID TOT PROTEIN PLEURAL; SOURCE, BODY FLUID TRIG PLEURAL; TOTAL PROTEIN, BODY FLUID 2.2 G/DL (NOT ESTABLISHED); TRIGLYCERIDE, BODY FLUID 12 MG/DL (NOT ESTABLISHED)
[2019-05-30 14:30] VITALS: BP 149/96
[2019-05-30 15:00] VITALS: BP 132/69
[2019-05-30] MEDS ORDERED: ONDANSETRON 4MG/2ML VIAL (J2405) IV PRN (15:15)
--- NOTE | 2019-05-30 16:07 | REP ---
ULTRASOUND-GUIDED RIGHT THORACENTESIS The risks and benefits of the procedure were explained to the patient and informed consent was obtained. The right pleural effusion was localized using ultrasound guidance. The skin was prepped and draped in a sterile fashion. 1% lidocaine was used as a local anesthetic. Using ultrasound guidance and 8-Yi multi side-hole catheter was inserted using trocar technique. 80 ml of yellow fluid was withdrawn and sent to the lab for analysis. The patient tolerated the procedure well and there were no immediate complications. Reviewed by SHER Ham 05/30/2019 03:50 P Electronically Signed by Paul Woodson MD 05/30/2019 03:58 P
--- NOTE | 2019-05-30 18:36 | IPNPDOC ---
Subjective Date Seen The patient was seen on 05/30/19. Subjective Chief Complaint/HPI Subjective: Patient states her breathing is ok today. She is conversive and cooperative, is aware of planned thoracentesis today. No overnight events noted. General: Denies: Chills, Night Sweats, Fatigue, Malaise Constitutional: Denies: Chills, Fever, Weakness Eyes: Denies: Vision change ENT: Denies: Sinus Congestion Pulmonary: Denies: Dyspnea, Cough, Pleuritic Chest Pain Cardiovascular: Denies: Chest Pain, Palpitations Gastrointestinal: Denies: Nausea, Vomiting, Abdominal Pain Genitourinary: Denies: Dysuria Endocrine: Denies: Polyuria Musculoskeletal: Denies: Neck Pain Neurological: Denies: Weakness, Numbness Psych: Reports: Mood Normal; Denies: Anxiety, Depression Objective Physical Examination Other physical findings GEN: Thin, cachectic female, NAD, resting in bed comfortably HEENT: EOMI, MM dry Cardio: S1/s2 present, RRR, no m/r/g Lungs: poor respiratory effort, good air entry on left side, significantly decreased air entry on right with decreased breath sounds to scapula. Abd: s, nt, nd, bs present Ext: trace b/l edema : key in place Neuro: altert and oriented Assessment /Plan Assessment 83 y/o F admitted from [place] for AMS and acute on chronic hypercapnic and hypoxic respiratory failure in the setting of worsening b/l pleural effusions (R>L) and HFpEF exacerbation, admitted to ICU and now downgraded medical floors. Plan/VTE VTE Prophylaxis Ordered?: Yes Plan Advance Directives: DNR Acute on Chronic Hypercapnic and hypoxic respiratory failure due to end stage COPD/CHF. -Doing well off of BIPAP, continue O2 via NC, keep sats between 88-92% and BIPAP at night -Pulmonary and critical care evaluation by Dr. Campa appreciated. -Continue Duonebs q4 hours standing. ID -currently on IV Levaquin for UTI and possible RLL PNA -Patient does have persistent Leukocytosis, possible concern for infected pleur al fluid although patient would likely be clinically more septic. Will f/u Pleural fluid drainage studies and cultures and adjust antibiotics accordingly. Acute HFpEF exacerbation with diastolic dysfunction, cor pulmonale with pulm HTN. -Strict I&O, 2L fluid restriction, daily weights -Decrease Lasix from IV 40mg q6 to 40mg IV daily as she is developing significant contraction alkalosis and is net negative 6L during admission and monitor clinically. -Continue Spironolactone 25mg daily, Lipitor, Diltiazem 120mg daily. Eliquis held for thoracentesis, restart tomorrow. Persistent Right sided pleural effusion, unchanged despite diuresis -IR to do Thoracentesis today. Pleural fluid studies and cultures ordered. -may need to change abx depending on pleural fluid culture or empirically if pt worsens clinically. Type 2 diabetes. on hypoglycemic protocol, insulin sliding scale for now. r esumed on home meds and consistent carbs diet Acute encephalopathy,improved secondary to hypercapnic respiratory failure secondary to congestive heart failure (CHF) exacerbation, uti present on admission. CT head negative Dyslipidemia on Lipitor. Hypertensive heart disease. on diltiazem 120 mg daily UTI present on admission s/p ceftriaxone on levaquin disposition:stable on medsur floor. VS, I&O, 24H, Fishbone Vital Signs/I&O Vital Signs Date Time Temp Pulse Resp B/P (MAP) Pulse Ox O2 Delivery O2 Flow Rate FiO2 05/30/19 15:00 98.1 89 20 132/69 (90) 94 2.0 05/28/19 00:00 45 05/27/19 07:31 BIPAP/CPAP I&O- Last 24 Hours up to 6 AM 05/30/19 06:00 Intake Total 1330 ml Output Total 2650 ml Balance -1320 ml Laboratory Data 24H LABS Laboratory Tests 2 05/30/19 06:15: Nucleated Red Blood Cells % (auto) 0.0, Anion Gap 2L, Glomerular Filtration Rate 53.5, Blood Urea Nitrogen 24H, Creatinine 1.05, Sodium Level 139, Potassium Level 4.8#, Chloride Level 95L, Carbon Dioxide Level 42H, Calcium Level 8.9 05/30/19 11:23: Body Fluid pH 7.671, Body Fluid pH Source PLEURAL, Body Fluid WBC (Auto) 1779H, Body Fluid RBC (Auto) 4, Body Fluid Mononuclear Cells % Auto 96.8H, Fluid Polymorphonuclear Cell % Auto 3.2H, Body Fluid Glucose Source PLEURAL, Body Fluid Glucose 188, Body Fluid Protein Source PLEURAL, Body Fluid Total Protein 2.2, Body Fluid Albumin Source PLEURAL, Body Fluid Albumin 1.2, Body Fluid LDH Source PLEURAL, Body Fluid Lactate Dehydrogenase 104, Body Fluid Amylase Source PLEURAL, Body Fluid Amylase 28, Body Fluid Cholesterol < 50, Body Fluid Cholesterol Source PLEURAL, Body Fluid Triglyceride Source PLEURAL, Body Fluid Triglycerides 12, Pleural Fluid Source PLEURAL, Pleural Fluid Color YELLOW, Pleural Fluid Appearance CLOUDY CBC/BMP Laboratory Tests 05/30/19 06:15 Red Blood Count 3.92 L, Mean Corpuscular Volume 91.6, Mean Corpuscular Hemoglobin 27.6, Mean Corpuscular Hemoglobin Concent 30.1 L, Red Cell Distribution Width 15.7 H, Calcium Level 8.9 Microbiology Microbiology 05/26/19 Blood Culture - Preliminary, Resulted No Growth after 72 hours. All specime... 05/26/19 Blood Culture - Preliminary, Resulted No Growth after 72 hours. All specime... 05/30/19 Acid Fast Stain, Received Pending 05/30/19 Mycobacterial Culture, Received Pending 05/30/19 Fungal Smear, Received Pending 05/30/19 Fungal Culture, Received Pending 05/30/19 Body Fluid Culture, Received Pending 05/26/19 Respiratory Virus Panel (PCR) ([facility]) - Final, Complete 05/26/19 Urine Culture - Final, Complete E.coli Esbl KYLEE CALVO MD May 30, 2019 18:36
[2019-05-30] MEDS: ATORVASTATIN 20 MG TAB PO SCH (20:22)
[2019-05-30 22:00] VITALS: BP 132/60
[2019-05-31] MEDS: IPRATROPIUM 0.5MG/ALBUTEROL 2.5MG INH SOL UD 3ML (DUONEB)(J7620) NEB SCH ×6 (03:02→23:24)
[2019-05-31 06:00] VITALS: BP 131/69
[2019-05-31] MEDS: ADVAIR HFA 230/21MCG INHALER INH SCH ×2 (07:47→19:43)
[2019-05-31] MEDS: OMEPRAZOLE 20 MG CAP PO SCH (08:38)
[2019-05-31] MEDS: guaiFENesin ER 600 MG TAB PO SCH ×2 (08:38→21:10)
[2019-05-31] MEDS: predniSONE 10 MG TAB PO SCH (08:39)
[2019-05-31] MEDS: HumaLOG INSULIN (NovoLOG) PER UNIT SC SCH ×4 (08:39→21:00)
[2019-05-31] MEDS: LevoFLOXacin IV 500 MG in APPROPRIATE DILUENT 1 EA IV SCH (08:39)
[2019-05-31] MEDS: POTASSIUM CHLORIDE 10 MEQ SR TABLET PO SCH ×2 (08:39→21:10)
[2019-05-31] MEDS: SPIRONOLACTONE 25 MG TAB PO SCH (08:39)
[2019-05-31] MEDS: POLYVINYL ALCOHOL OPHTH SOLN 15 ML(LIQUITEARS) OU SCH ×4 (08:40→21:12)
[2019-05-31] MEDS: FUROSEMIDE 40 MG/4 ML VIAL (J1940) IV SCH (08:40)
--- NOTE | 2019-05-31 08:58 | IPN ---
DATE: 05/31/2019 Jocelyne is seen while rounding for the hospitalist. She had a thoracentesis yesterday, the results are pending. They took off 80 mL of fluid. She has a persisting leukocytosis. She is currently on Levaquin for ESBL E. Coli in the urine. I am not sure that is going to provide adequate pulmonary coverage as she has a positive methicillin-resistant Staphylococcus aureus (MRSA) screen. She feels less short of breath and does not express any pain currently from the thoracentesis/pleural biopsy site. PHYSICAL EXAMINATION: Afebrile. 131/69. Pulse 100. Respiratory rate 20. 95% saturation on 2 liters. General Appearance: Resting comfortably, in no distress. HEENT: Unremarkable. No jugular venous distention (JVD). Lungs: Decreased breath sounds, clear to the apices bilaterally. Right thoracentesis has no crepitance. Trace peripheral edema. LABS: She had no lab work ordered for today. IMPRESSION: 1. Acute on chronic hypercapnic respiratory failure on end stage chronic obstructive pulmonary disease and heart failure with preserved ejection fraction. She is well saturated. She is clinically stable. She is getting DuoNebs every 4 hours. Pulmonary was seeing her previously, but signed off. 2. Leukocytosis. This is persisting. Unfortunately, no labs ordered for today. She is currently on IV Levaquin, which I do not think will be sufficient for her pulmonary process as her MRSA screen is positive. I will add Ceftaroline to her regimen. 3. Pleural effusion status post thoracentesis. Results should be back as far as culture and gram stain tomorrow. 4. Diabetes. On sliding scale insulin. 5. Hypertensive heart disease. Continue current diltiazem. 6. EBSL E. Coli urinary tract infection. She is on her fourth day of Levaquin. I would discontinue this tomorrow after five days of therapy.
[2019-05-31] MEDS: CEFTAROLINE FOSAMIL 400 MG in D5W MINI-BAG PLUS 50 ML IV SCH ×2 (11:24→23:43)
[2019-05-31 14:00] VITALS: BP 131/63
[2019-05-31] MEDS: ATORVASTATIN 20 MG TAB PO SCH (21:10)
[2019-05-31] MEDS: APIXABAN 5 MG TAB (ELIQUIS) PO SCH (21:10)
[2019-05-31 22:00] VITALS: BP 114/68
[2019-06-01] MEDS: IPRATROPIUM 0.5MG/ALBUTEROL 2.5MG INH SOL UD 3ML (DUONEB)(J7620) NEB SCH ×6 (02:40→22:41)
[2019-06-01 06:00] VITALS: BP 110/68
[2019-06-01 06:35] LABS: BASO # 0.1 10^3/uL (0.0-0.2); BASO % 0.3 % (0.0-1.0); EOS # 0.2 10^3/uL (0.0-0.50); EOS % 0.8 % (0.0-3.0); HEMATOCRIT 34.8 % (36.0-47.0); HEMOGLOBIN 10.2 g/dl (12.0-15.5); LYMPH # 1.5 10^3/uL (1.5-4.5); LYMPH % 7.9 % (24.0-44.0); MEAN CORPUSCULAR HEMOGLOBIN 27.6 pg (27.0-33.0); MEAN CORPUSCULAR HGB CONC 29.3 g/dl (32.0-36.5); MEAN CORPUSCULAR VOLUME 94.1 fl (80.0-96.0); MONO # 0.9 10^3/uL (0.0-0.8); MONO % 4.5 % (0.0-5.0); NEUTROPHILS # 16.3 10^3/uL (1.8-7.7); NEUTROPHILS % 85.7 % (36.0-66.0); PLATELET COUNT, AUTOMATED 251 10^3/uL (150-450)
[2019-06-01 07:08] LABS: BLOOD UREA NITROGEN 24 MG/DL (7-18); CALCIUM LEVEL 9.4 MG/DL (8.8-10.2); CARBON DIOXIDE LEVEL 40 MEQ/L (21-32); CHLORIDE LEVEL 101 MEQ/L (98-107); GLOMERULAR FILTRATION RATE 56.6 (>32); GLUCOSE, FASTING 89 MG/DL (70-100); SODIUM LEVEL 140 MEQ/L (136-145)
[2019-06-01] MEDS: HumaLOG INSULIN (NovoLOG) PER UNIT SC SCH ×4 (07:30→21:00)
[2019-06-01] MEDS: ADVAIR HFA 230/21MCG INHALER INH SCH ×2 (07:45→20:05)
[2019-06-01] MEDS: LevoFLOXacin IV 500 MG in APPROPRIATE DILUENT 1 EA IV SCH (09:00)
[2019-06-01] MEDS: POTASSIUM CHLORIDE 10 MEQ SR TABLET PO SCH ×2 (09:00→21:51)
[2019-06-01] MEDS: OMEPRAZOLE 20 MG CAP PO SCH (09:00)
[2019-06-01] MEDS: SPIRONOLACTONE 25 MG TAB PO SCH (09:01)
[2019-06-01] MEDS: guaiFENesin ER 600 MG TAB PO SCH ×2 (09:03→21:51)
[2019-06-01] MEDS: predniSONE 10 MG TAB PO SCH (09:03)
[2019-06-01] MEDS: POLYVINYL ALCOHOL OPHTH SOLN 15 ML(LIQUITEARS) OU SCH ×4 (09:03→21:52)
[2019-06-01] MEDS: FUROSEMIDE 40 MG/4 ML VIAL (J1940) IV SCH (09:03)
[2019-06-01] MEDS: APIXABAN 5 MG TAB (ELIQUIS) PO SCH ×2 (09:03→21:51)
[2019-06-01 09:06] VITALS: O2SAT 91
[2019-06-01] MEDS: CEFTAROLINE FOSAMIL 400 MG in D5W MINI-BAG PLUS 50 ML IV SCH ×2 (10:47→21:52)
--- NOTE | 2019-06-01 11:52 | REP ---
Clinical: Follow up pneumonia. Technique: AP and lateral. Comparison: 05/30/2019. Findings: Mediastinum and cardiac silhouette are stable. Lung worrell demonstrate diffuse chronic interstitial changes. Superimposed bilateral atelectasis and possible small right pleural effusion is suspected. Skeletal structures demonstrate osteopenia and degenerative changes. Impression: Chronic changes with suspected superimposed bilateral atelectasis and small right pleural effusion. Electronically Signed by Ray Corrigan MD 06/01/2019 11:44 A
[2019-06-01 14:00] VITALS: BP 131/58
--- NOTE | 2019-06-01 19:38 | IPNPDOC ---
Text Note Date of Service The patient was seen on 06/01/19. NOTE Subjective: Patient complains of mild shortness of breath. No acute events overnight. Patient denies fever, chills, nausea, vomiting, palpitations, diarrhea Objective: GENERAL: NAD HEENT: PERRLA, EOMI LUNGS: Diminished lung sounds at the base, no wheezes HEART: S1, S2. Regular rate and rhythm ABDOMEN: Obese, soft, nontender, nondistended. Timmons catheter in place EXTREMITIES: trace b/l edema. Neuro: Nonfocal, cranial nerves from 2 through 12 intact A/p 83 y/o F admitted from [place] for AMS and acute on chronic hypercapnic and hypoxic respiratory failure in the setting of worsening b/l pleural effusions (R>L) and HFpEF exacerbation, admitted to ICU and now downgraded medical floors. Due to persistent right lower lobe effusion thoracocentesis was done, await pleural fluid culture. Acute hypercapnic respiratory failure, resolved Most likely secondary to CHF exacerbation superimposed with pneumonia Patient received multiple antibiotic treatment including azithromycin, Zosyn, ceftriaxone, Levaquin for presumed pneumonia Out of bed, encourage to ambulate Chest x-ray Acute exacerbation of chf, Diastolic CHF with ejection fraction of 60-65% on echo I's and O's Continue diuresis Persistent right pleural effusion Thoracocentesis was done Lites criteria suggests transudate Chronic hypoxic respiratory failure due to end-stage chronic obstructive pulmonary disease (COPD) superimposed with acute congestive heart failure. Prognosis guarded Type 2 diabetes. Insulin sliding scale Diabetes diet Acute encephalopathy Resolved secondary to hypercapnic respiratory Dyslipidemia. on Lipitor Hypertensive heart disease on diltiazem 120 mg daily Chronic obstructive pulmonary disease (COPD). Continue steroids, inhalers Cor pulmonale with pulmonary artery hypertension. Follow-up with senior sas programmer UTI present on admission ESBL positive culture Continue Levaquin VS,Fishbone, I+O VS, Fishbone, I+O Laboratory Tests 06/01/19 06:16 Red Blood Count 3.70 L, Mean Corpuscular Volume 94.1, Mean Corpuscular Hemoglobin 27.6, Mean Corpuscular Hemoglobin Concent 29.3 L, Red Cell Distribution Width 15.8 H, Neutrophils (%) (Auto) 85.7 H, Lymphocytes (%) (Auto) 7.9 L, Monocytes (%) (Auto) 4.5, Eosinophils (%) (Auto) 0.8, Basophils (%) (Auto) 0.3, Neutrophils # (Auto) 16.3 H, Lymphocytes # (Auto) 1.5, Monocytes # (Auto) 0.9 H, Eosinophils # (Auto) 0.2, Basophils # (Auto) 0.1, Calcium Level 9.4 Vital Signs Date Time Temp Pulse Resp B/P (MAP) Pulse Ox O2 Delivery O2 Flow Rate FiO2 06/01/19 17:13 98.9 06/01/19 14:00 102 18 131/58 (82) 91 2.0 06/01/19 09:06 Nasal Cannula 05/28/19 00:00 45 I&O- Last 24 Hours up to 6 AM 06/01/19 06:00 Intake Total 836 ml Output Total 1350 ml Balance -514 ml ESSIE ARZOLA DO Jun 01, 2019 19:38
[2019-06-01 21:01] LABS: BLOOD UREA NITROGEN 25 MG/DL (7-18); CALCIUM LEVEL 9.2 MG/DL (8.8-10.2); CARBON DIOXIDE LEVEL 38 MEQ/L (21-32); CHLORIDE LEVEL 99 MEQ/L (98-107); CREATININE FOR GFR 1.07 MG/DL (0.55-1.30); GLOMERULAR FILTRATION RATE 52.4 (>32); GLUCOSE, FASTING 134 MG/DL (70-100); SODIUM LEVEL 136 MEQ/L (136-145)
[2019-06-01] MEDS: ATORVASTATIN 20 MG TAB PO SCH (21:52)
[2019-06-01 22:00] VITALS: BP 128/73; O2SAT 93
[2019-06-02 02:02] LABS: BLOOD UREA NITROGEN 24 MG/DL (7-18); CALCIUM LEVEL 9.3 MG/DL (8.8-10.2); CARBON DIOXIDE LEVEL 40 MEQ/L (21-32); CHLORIDE LEVEL 99 MEQ/L (98-107); CREATININE FOR GFR 1.02 MG/DL (0.55-1.30); GLOMERULAR FILTRATION RATE 55.4 (>32); GLUCOSE, FASTING 113 MG/DL (70-100); POTASSIUM SERUM 4.6 MEQ/L (3.5-5.1); SODIUM LEVEL 137 MEQ/L (136-145)
[2019-06-02] MEDS: IPRATROPIUM 0.5MG/ALBUTEROL 2.5MG INH SOL UD 3ML (DUONEB)(J7620) NEB SCH ×6 (03:58→23:38)
[2019-06-02 06:00] VITALS: BP 137/78
[2019-06-02] MEDS: ADVAIR HFA 230/21MCG INHALER INH SCH ×2 (07:06→21:00)
[2019-06-02 07:07] LABS: BASO # 0.1 10^3/uL (0.0-0.2); BASO % 0.3 % (0.0-1.0); EOS # 0.1 10^3/uL (0.0-0.5); EOS % 0.4 % (0.0-3.0); HEMATOCRIT 32.5 % (36.0-47.0); LYMPH # 1.5 10^3/uL (1.5-5.0); LYMPH % 7.9 % (24.0-44.0); MEAN CORPUSCULAR HEMOGLOBIN 28.4 pg (27.0-33.0); MEAN CORPUSCULAR HGB CONC 30.8 g/dl (32.0-36.5); MEAN CORPUSCULAR VOLUME 92.3 fl (80.0-96.0); MONO % 5.5 % (0.0-5.0); NEUTROPHILS # 15.9 10^3/uL (1.5-8.5); NEUTROPHILS % 85.3 % (36.0-66.0); PLATELET COUNT, AUTOMATED 247 10^3/uL (150-450); RED BLOOD COUNT 3.52 10^6/uL (4.00-5.40); WHITE BLOOD COUNT 18.6 10^3/uL (4.0-10.0)
[2019-06-02 07:24] LABS: BLOOD UREA NITROGEN 24 MG/DL (7-18); CALCIUM LEVEL 8.9 MG/DL (8.8-10.2); CARBON DIOXIDE LEVEL 37 MEQ/L (21-32); CHLORIDE LEVEL 99 MEQ/L (98-107); CREATININE FOR GFR 0.95 MG/DL (0.55-1.30); GLOMERULAR FILTRATION RATE > 60.0 (>32); GLUCOSE, FASTING 84 MG/DL (70-100); POTASSIUM SERUM 4.3 MEQ/L (3.5-5.1); SODIUM LEVEL 139 MEQ/L (136-145)
[2019-06-02] MEDS: HumaLOG INSULIN (NovoLOG) PER UNIT SC SCH ×4 (07:30→21:00)
[2019-06-02] MEDS: POTASSIUM CHLORIDE 10 MEQ SR TABLET PO SCH ×2 (08:36→22:03)
[2019-06-02] MEDS: FUROSEMIDE 40 MG/4 ML VIAL (J1940) IV SCH (08:36)
[2019-06-02 08:39] VITALS: BP 152/76
[2019-06-02] MEDS: OMEPRAZOLE 20 MG CAP PO SCH (08:39)
[2019-06-02] MEDS: POLYVINYL ALCOHOL OPHTH SOLN 15 ML(LIQUITEARS) OU SCH ×4 (08:39→22:03)
[2019-06-02] MEDS: predniSONE 10 MG TAB PO SCH (08:39)
[2019-06-02] MEDS: guaiFENesin ER 600 MG TAB PO SCH ×2 (08:39→22:04)
[2019-06-02] MEDS: APIXABAN 5 MG TAB (ELIQUIS) PO SCH ×2 (08:39→22:04)
[2019-06-02] MEDS: SPIRONOLACTONE 25 MG TAB PO SCH (08:39)
[2019-06-02 09:15] VITALS: O2SAT 93
[2019-06-02] MEDS: CEFTAROLINE FOSAMIL 400 MG in D5W MINI-BAG PLUS 50 ML IV SCH ×2 (10:15→22:04)
[2019-06-02 11:33] VITALS: O2SAT 98
--- NOTE | 2019-06-02 12:01 | IPN ---
DATE: 06/02/2019 Jocelyne is seen [facility]. She feels that she is closer to her baseline with respiratory status but not there yet. She is on 2 liters nasal cannula and maintaining her oxygenation satisfactorily. Her pleural fluid did not prove to be an empyema. Culture is negative. Look to be a transudate. PHYSICAL EXAMINATION: 152/72, pulse 84, 95% oxygen saturation on 2 liters. GENERAL APPEARANCE: Alert, conversant. Speaks without any labored respirations. HEENT: Unremarkable. LUNGS: Few wheezes at the bases. HEART: Regular rhythm. ABDOMEN: Soft, nontender. EXTREMITIES: Trace peripheral edema. LABORATORIES: BMP unremarkable. White count is 18,000 on steroids, hemoglobin 10. IMPRESSION: 1. Acute on chronic respiratory failure, end stage chronic obstructive pulmonary disease (COPD) complicated by noncompliance as an outpatient. Continue her steroids and nebulized bronchodilator. 2. Leukocytosis. Suspect a pulmonary infection. She is on ceftaroline for this. 3. Pleural effusion, transudate. The culture is negative ruling out empyema. 4. Hypertensive heart disease, stable on current regimen. 5. Extended-Spectrum beta-Lactamases (ESBL) Escherichia (E) coli urinary tract infection (UTI). She completed 5 days of Levaquin, this was discontinued yesterday. Anticipate discharge in the next day or two. Home safety evaluation advised tomorrow.
[2019-06-02 14:00] VITALS: BP 114/77
[2019-06-02 14:11] LABS: CALCIUM LEVEL 9.1 MG/DL (8.8-10.2); CREATININE FOR GFR 1.16 MG/DL (0.55-1.30); GLOMERULAR FILTRATION RATE 47.7 (>32); POTASSIUM SERUM 4.8 MEQ/L (3.5-5.1)
[2019-06-02 20:13] LABS: CALCIUM LEVEL 9.1 MG/DL (8.8-10.2); CREATININE FOR GFR 1.12 MG/DL (0.55-1.30); GLOMERULAR FILTRATION RATE 49.7 (>32); POTASSIUM SERUM 4.8 MEQ/L (3.5-5.1)
[2019-06-02 22:00] VITALS: BP 159/84
[2019-06-02] MEDS: ATORVASTATIN 20 MG TAB PO SCH (22:03)
[2019-06-03 02:15] LABS: BLOOD UREA NITROGEN 21 MG/DL (7-18); CALCIUM LEVEL 8.5 MG/DL (8.8-10.2); CARBON DIOXIDE LEVEL 36 MEQ/L (21-32); CHLORIDE LEVEL 99 MEQ/L (98-107); CREATININE FOR GFR 0.92 MG/DL (0.55-1.30); GLOMERULAR FILTRATION RATE > 60.0 (>32); GLUCOSE, FASTING 108 MG/DL (70-100); POTASSIUM SERUM 4.6 MEQ/L (3.5-5.1); SODIUM LEVEL 137 MEQ/L (136-145)
[2019-06-03] MEDS: IPRATROPIUM 0.5MG/ALBUTEROL 2.5MG INH SOL UD 3ML (DUONEB)(J7620) NEB SCH ×3 (04:47→11:22)
[2019-06-03 06:00] VITALS: BP 139/78
[2019-06-03 07:15] LABS: BASO # 0.1 10^3/uL (0.0-0.2); BASO % 0.4 % (0.0-1.0); EOS # 0.1 10^3/uL (0.0-0.5); EOS % 0.3 % (0.0-3.0); HEMATOCRIT 33.7 % (36.0-47.0); HEMOGLOBIN 10.2 g/dl (12.0-15.5); LYMPH # 1.9 10^3/uL (1.5-5.0); LYMPH % 11.8 % (24.0-44.0); MEAN CORPUSCULAR HEMOGLOBIN 27.8 pg (27.0-33.0); MEAN CORPUSCULAR HGB CONC 30.3 g/dl (32.0-36.5); MEAN CORPUSCULAR VOLUME 91.8 fl (80.0-96.0); MONO % 6.6 % (0.0-5.0); NEUTROPHILS # 12.7 10^3/uL (1.5-8.5); NEUTROPHILS % 80.1 % (36.0-66.0); PLATELET COUNT, AUTOMATED 251 10^3/uL (150-450); RED BLOOD COUNT 3.67 10^6/uL (4.00-5.40); WHITE BLOOD COUNT 15.9 10^3/uL (4.0-10.0)
[2019-06-03] MEDS: HumaLOG INSULIN (NovoLOG) PER UNIT SC SCH ×2 (07:30→12:24)
[2019-06-03 07:42] LABS: BLOOD UREA NITROGEN 19 MG/DL (7-18); CALCIUM LEVEL 8.8 MG/DL (8.8-10.2); CARBON DIOXIDE LEVEL 36 MEQ/L (21-32); CHLORIDE LEVEL 100 MEQ/L (98-107); CREATININE FOR GFR 0.94 MG/DL (0.55-1.30); GLOMERULAR FILTRATION RATE > 60.0 (>32); GLUCOSE, FASTING 99 MG/DL (70-100); POTASSIUM SERUM 4.4 MEQ/L (3.5-5.1); SODIUM LEVEL 137 MEQ/L (136-145)
[2019-06-03 08:14] VITALS: BP 124/68
[2019-06-03] MEDS: APIXABAN 5 MG TAB (ELIQUIS) PO SCH (08:47)
[2019-06-03] MEDS: POLYVINYL ALCOHOL OPHTH SOLN 15 ML(LIQUITEARS) OU SCH ×2 (08:47→12:24)
[2019-06-03] MEDS: POTASSIUM CHLORIDE 10 MEQ SR TABLET PO SCH (08:48)
[2019-06-03] MEDS: predniSONE 10 MG TAB PO SCH (08:48)
[2019-06-03] MEDS: OMEPRAZOLE 20 MG CAP PO SCH (08:48)
[2019-06-03] MEDS: SPIRONOLACTONE 25 MG TAB PO SCH (08:48)
[2019-06-03] MEDS: guaiFENesin ER 600 MG TAB PO SCH (08:49)
[2019-06-03] MEDS: FUROSEMIDE 40 MG/4 ML VIAL (J1940) IV SCH (08:50)
[2019-06-03] MEDS: ADVAIR HFA 230/21MCG INHALER INH SCH ×2 (09:00→11:55)
[2019-06-03] MEDS ORDERED: TORS100T PO (11:03)
[2019-06-03] MEDS ORDERED: PRED20TA PO (11:08)
[2019-06-03] MEDS ORDERED: VENTAER INH (11:09)
[2019-06-03] MEDS ORDERED: INSUHUMDS SC ×4 (11:14→11:19)
[2019-06-03] MEDS: CEFTAROLINE FOSAMIL 400 MG in D5W MINI-BAG PLUS 50 ML IV SCH (11:15)
[2019-06-03] MEDS ORDERED: BREO1INH3 INH (11:28)
--- NOTE | 2019-06-03 21:25 | DS.PDOC ---
Discharge Summary General Date of Admission May 26, 2019 at 12:20 Date of Discharge 06/03/19 Primary Care Physician: Onel Cisse M.D. Attending Physician: ESSIE ARZOLA DO Discharge Summary PROCEDURES PERFORMED DURING STAY: None ADMITTING DIAGNOSES: Acute hypercapnic respiratory failure Acute exacerbation of chf, Persistent right pleural effusion Chronic hypoxic respiratory failure Type 2 diabetes. Acute encephalopathy Dyslipidemia. Hypertensive heart disease Chronic obstructive pulmonary disease (COPD) .UTI present on admission Cor pulmonale with pulmonary artery hypertension. DISCHARGE DIAGNOSES: Acute hypercapnic respiratory failure Acute exacerbation of chf, Persistent right pleural effusion Chronic hypoxic respiratory failure Type 2 diabetes. Acute encephalopathy Dyslipidemia. Hypertensive heart disease Chronic obstructive pulmonary disease (COPD) .UTI present on admission Cor pulmonale with pulmonary artery hypertension. COMPLICATIONS/CHIEF COMPLAINT: Acute And Chronic Respiratory Failure W/Hypoxia. HISTORY OF PRESENT ILLNESS: This is an 83-year-old female, was brought in by ambulance due to altered mental status according to the daughter for the past few days, worsening respiratory distress. The patient is confused and history could not be obtained. In the emergency room (ER), she was found to have acute hypercapnic respiratory failure with severe respiratory acidosis, pH was 7.2, CO2 of 139. She was emergently placed on BiPAP therapy. Code status was confirmed with the patient's daughter. She remains DO NOT RESUSCITATE, DO NOT INTUBATE. The patient is only awake, alert to herself. She has a longtime history of severe chronic obstructive pulmonary disease (COPD) and follows with Dr. Leo at [facility], along with hypercapnia. There has been no fever detected in the emergency room. She has a progressive pleural effusion and is currently being admitted for congestive heart failure with acute hypercapnic respiratory failure requiring BiPAP therapy. HOSPITAL COURSE: During hospital stay the following issues were addressed Acute hypercapnic respiratory failure, resolved Most likely secondary to CHF exacerbation superimposed with pneumonia Patient received multiple antibiotic treatment including azithromycin, Zosyn, ceftriaxone, Levaquin for presumed pneumonia Acute exacerbation of chf, Diastolic CHF with ejection fraction of 60-65% on echo Received IV Lasix Persistent right pleural effusion Thoracocentesis was done Lites criteria suggests transudate Chronic hypoxic respiratory failure due to end-stage chronic obstructive pulmonary disease (COPD) superimposed with acute congestive heart failure. Prognosis guarded Follow-up with palliative care Type 2 diabetes. Insulin sliding scale Diabetes diet Acute encephalopathy Resolved secondary to hypercapnic respiratory Dyslipidemia. on Lipitor Hypertensive heart disease on diltiazem 120 mg daily Chronic obstructive pulmonary disease (COPD). Continue steroids, inhalers Cor pulmonale with pulmonary artery hypertension. Follow-up with admitting coordinator UTI present on admission ESBL positive culture Continue Levaquin DISCHARGE MEDICATIONS: Please see below. ALLERGIES: Please see below. PHYSICAL EXAMINATION ON DISCHARGE: VITAL SIGNS: Please see below. GENERAL: NAD HEENT: PERRLA, EOMI LUNGS: Diminished lung sounds at the base, no wheezes HEART: S1, S2. Regular rate and rhythm ABDOMEN: Obese, soft, nontender, nondistended. Timmons catheter in place EXTREMITIES: trace b/l edema. Neuro: Nonfocal, cranial nerves from 2 through 12 intact LABORATORY DATA: Please see below. IMAGING: Clinical: Follow up pneumonia. Technique: AP and lateral. Comparison: 05/30/2019. Findings: Mediastinum and cardiac silhouette are stable. Lung worrell demonstrate diffuse chronic interstitial changes. Superimposed bilateral atelectasis and possible small right pleural effusion is suspected. Skeletal structures demonstrate osteopenia and degenerative changes. Impression: Chronic changes with suspected superimposed bilateral atelectasis and small right pleural effusion. PROGNOSIS: Guarded ACTIVITY: As tolerated DIET: Cardiac DISCHARGE PLAN: [facility] DISPOSITION: [facility]. DISCHARGE INSTRUCTIONS: Use inhalers as prescribed ITEMS TO FOLLOWUP ON ON OUTPATIENT: Follow-up with admitting coordinator in 1 week, PCP in 3 days Follow-up with palliative care in 1 week DISCHARGE CONDITION: Stable TIME SPENT ON DISCHARGE: Greater than 20 minutes. Vital Signs/I&Os Vital Signs Date Time Temp Pulse Resp B/P (MAP) Pulse Ox O2 Delivery O2 Flow Rate FiO2 06/03/19 10:00 2.0 06/03/19 08:14 97.7 84 16 124/68 (86) 94 06/02/19 20:32 Nasal Cannula 05/28/19 00:00 45 I&O- Last 24 Hours up to 6 AM 06/03/19 05:59 Intake Total 1150 ml Output Total 1775 ml Balance -625 ml Laboratory Data Labs 24H Laboratory Tests 2 06/03/19 01:46: Anion Gap 2L, Glomerular Filtration Rate > 60.0, Blood Urea Nitrogen 21H, Creatinine 0.92, Sodium Level 137, Potassium Level 4.6, Chloride Level 99, Carbon Dioxide Level 36H, Calcium Level 8.5L 06/03/19 06:52: Anion Gap 1L, Glomerular Filtration Rate > 60.0, Blood Urea Nitrogen 19H, Creatinine 0.94, Sodium Level 137, Potassium Level 4.4, Chloride Level 100, Carbon Dioxide Level 36H, Calcium Level 8.8, Immature Granulocyte % (Auto) 0.8, White Blood Count 15.9H, Red Blood Count 3.67L, Hemoglobin 10.2L, Hematocrit 33.7L, Mean Corpuscular Volume 91.8, Mean Corpuscular Hemoglobin 27.8, Mean Corpuscular Hemoglobin Concent 30.3L, Red Cell Distribution Width 15.9H, Platelet Count 251, Neutrophils (%) (Auto) 80.1H, Lymphocytes (%) (Auto) 11.8L, Monocytes (%) (Auto) 6.6H, Eosinophils (%) (Auto) 0.3, Basophils (%) (Auto) 0.4, Neutrophils # (Auto) 12.7H, Lymphocytes # (Auto) 1.9, Monocytes # (Auto) 1.0H, Eosinophils # (Auto) 0.1, Basophils # (Auto) 0.1, Nucleated Red Blood Cells % (auto) 0.0 06/03/19 11:39: Bedside Glucose (Misc Panel) 136H CBC/BMP Laboratory Tests 06/03/19 01:46 Calcium Level 8.5 L 06/03/19 06:52 Calcium Level 8.8, Red Blood Count 3.67 L, Mean Corpuscular Volume 91.8, Mean Corpuscular Hemoglobin 27.8, Mean Corpuscular Hemoglobin Concent 30.3 L, Red Cell Distribution Width 15.9 H, Neutrophils (%) (Auto) 80.1 H, Lymphocytes (%) (Auto) 11.8 L, Monocytes (%) (Auto) 6.6 H, Eosinophils (%) (Auto) 0.3, Basophils (%) (Auto) 0.4, Neutrophils # (Auto) 12.7 H, Lymphocytes # (Auto) 1.9, Monocytes # (Auto) 1.0 H, Eosinophils # (Auto) 0.1, Basophils # (Auto) 0.1 FSBS Laboratory Tests Test 06/03/19 11:39 Range/Units Bedside Glucose (Misc Panel) 136 83-110 MG/DL Microbiology Microbiology 05/26/19 Blood Culture - Final, Complete NO GROWTH AFTER 5 DAYS 05/26/19 Blood Culture - Final, Complete NO GROWTH AFTER 5 DAYS 05/30/19 Acid Fast Stain, Received Pending 05/30/19 Mycobacterial Culture, Received Pending 05/30/19 Fungal Smear, Received Pending 05/30/19 Fungal Culture, Received Pending 05/30/19 Gram Stain - Final, Complete 05/30/19 Body Fluid Culture - Final, Complete 05/30/19 Anaerobic Culture - Final, Complete 05/26/19 Respiratory Virus Panel (PCR) (LAKISHA) - Final, Complete 05/26/19 Urine Culture - Final, Complete E.coli Esbl Discharge Medications Scheduled Apixaban (Eliquis) 5 Mg Tablet, 5 MG PO BID, (Reported) Atorvastatin Calcium (Atorvastatin Calcium) 40 Mg Tab, 40 MG PO QHS, (Reported) Calcium Carbonate/Vitamin D3 (Calcium 500-Vit D3 200 Tablet) 1 Each Tablet, 1 TAB PO DAILY, (Reported) Diltiazem HCl (Cartia Xt) 120 Mg Cap, 120 MG PO DAILY, (Reported) Docusate Sodium (Docusate Sodium) 100 Mg Capsule, 100 MG PO BID, (Reported) Fluticasone/Vilanterol (Breo Ellipta 200-25 Mcg INH) 1 Each Blst.w.dev, 2 PUFF INH DAILY Guaifenesin (Mucinex) 600 Mg Tab.er.12h, 600 MG PO BID, (Reported) Insulin Human Lispro (Humalog) 100 Unit/1 Ml Vial, 1 UNITS SC AC Insulin Human Lispro (Humalog) 100 Unit/1 Ml Vial, 1 UNITS SC QHS SLIDING SCALE. FOLLOW PROTOCOL Omeprazole (Omeprazole) 20 Mg Capsule.dr, 20 MG PO DAILY, (Reported) Polyvinyl Alcohol (Artificial Tears) 1.4 % [place], 1 DROP OU QID, (Reported) Prednisone (Prednisone) 10 Mg Tablet, 10 MG PO DAILY, (Reported) Prednisone (Prednisone) 20 Mg Tablet, 20 MG PO ASDIRECTED for COPD Spironolactone (Spironolactone) 25 Mg Tab, 25 MG PO DAILY, (Reported) Torsemide (Torsemide) 100 Mg Tablet, 100 MG PO DAILY Umeclidinium [place] (Incruse Ellipta) 62.5 Mcg Blst.w.dev, 1 PUFF INH DAILY, (Reported) Vitamin B Complex/Folic Acid (B-Complex Tablet) 0.4 Mg Tablet, 1 TAB PO DAILY, (Reported) Scheduled PRN Acetaminophen (Acetaminophen) 650 Mg Supp.rect, 650 MG IL Q4H PRN for PAIN / FEVER, (Reported) Albuterol Sulfate (Ventolin Hfa) 18 Gm Hfa.aer.ad, 2 PUFF INH Q4-6HP PRN for wheezing Bisacodyl (Dulcolax) 10 Mg Supp.rect, 10 MG [place] DAILY PRN for CONSTIPATION, (Reported) Ipratropium/Albuterol Sulfate (Iprat-Albut 0.5-3(2.5) mg/3 ml) 3 Ml Ampul.neb, 1 VIAL INH Q4H PRN for SHORTNESS OF BREATH, (Reported) Magnesium Hydroxide (Milk of Magnesia) 400 Mg/5 Ml Oral.susp, 800 MG PO DAILY PRN for CONSTIPATION, (Reported) Sodium Phosphate,[place]-Dibasic (Enema) 133 Ml Enema, 1 [place] DAILY PRN for CONSTIPATION, (Reported) Allergies Coded Allergies: No Known Allergies (Unverified , 12/25/18) ESSIE ARZOLA DO Jun 03, 2019 21:25
== END 2019-06-03 13:35 | DRG 291 ==
LOC: EDBD 09:06 → M ED 09:06 → EEVIPCON 12:20 → M ED INP 12:20 → M ICU 14:13 → M MSPAV 05-28 11:13
PROVIDERS: ADMIT General Practice; ATTEND Internal Medicine
PROC: 0W993ZZ Drainage of Right Pleural Cavity, Percutaneous Approach (ICD-10-PCS; principal; 2019-05-30 15:00)
DX: I11.0 Hypertensive heart disease with heart failure (principal); J96.21 Acute and chronic respiratory failure with hypoxia; J96.22 Acute and chronic respiratory failure with hypercapnia; J18.9 Pneumonia, unspecified organism; N39.0 Urinary tract infection, site not specified; G93.40 Encephalopathy, unspecified; I50.33 Acute on chronic diastolic (congestive) heart failure; I27.81 Cor pulmonale (chronic); E11.9 Type 2 diabetes mellitus without complications; J44.9 Chronic obstructive pulmonary disease, unspecified; E78.5 Hyperlipidemia, unspecified; I27.20 Pulmonary hypertension, unspecified; Z66 Do not resuscitate; Z79.899 Other long term (current) drug therapy; Z87.891 Personal history of nicotine dependence; Z79.52 Long term (current) use of systemic steroids; Z79.01 Long term (current) use of anticoagulants; B96.29 Other Escherichia coli [E. coli] as the cause of diseases classified elsewhere

== ENCOUNTER → 2019-05-26 | Outpatient (REF) ==
[~2019-05-26] MED LIST changes: +ACET65SU PR; +AUGM500T34 PO; -DIGO0.12 PO; +DIGO0.123 PO; +DULC10SU2 PR; +ENEMENE PR; +INSUHUMDS SC; +MILKSUS3 PO; +OMEP1CAP73 PO; -OMEP20CA4 PO; +PRED20TA PO; +TORS100T PO; +TORS10TA3 PO
[2019-05-26 08:36] LABS: BLOOD UREA NITROGEN 15 MG/DL (7-18); CALCIUM LEVEL 8.8 MG/DL (8.8-10.2); CARBON DIOXIDE LEVEL 48 MEQ/L (21-32); CHLORIDE LEVEL 95 MEQ/L (98-107); CREATININE FOR GFR 0.75 MG/DL (0.55-1.30); GLOMERULAR FILTRATION RATE > 60.0 (>32); GLUCOSE, FASTING 107 MG/DL (70-100); POTASSIUM SERUM 4.2 MEQ/L (3.5-5.1); SODIUM LEVEL 143 MEQ/L (136-145)
== END ==
LOC: SKLAB4 10:09
PROVIDERS: ATTEND Family Medicine
DX: R60.9 Edema, unspecified (principal)

== ENCOUNTER → 2019-06-09 | Outpatient (REF) ==
[~2019-06-09] MED LIST changes: +ACET65SU PR; +AUGM500T34 PO; -DIGO0.12 PO; +DIGO0.123 PO; +DULC10SU2 PR; +ENEMENE PR; -ENOXAPARIN 30 MG/0.3 ML SYR (J1650) SC SCH; +INSUHUMDS SC; +MILKSUS3 PO; +OMEP1CAP73 PO; -OMEP20CA4 PO; +PRED20TA PO; +TORS100T PO; +TORS10TA3 PO
[2019-06-09 08:19] LABS: CALCIUM LEVEL 9.5 MG/DL (8.8-10.2); CREATININE FOR GFR 0.98 MG/DL (0.55-1.30); GLOMERULAR FILTRATION RATE 57.8 (>32); POTASSIUM SERUM 3.4 MEQ/L (3.5-5.1)
== END ==
LOC: SKLAB4 09:38
PROVIDERS: ATTEND Family Medicine
DX: I50.9 Heart failure, unspecified (principal)

== ENCOUNTER → 2019-06-13 | Outpatient (REF) ==
[2019-06-13 08:19] LABS: CALCIUM LEVEL 9.3 MG/DL (8.8-10.2); CREATININE FOR GFR 0.95 MG/DL (0.55-1.30); POTASSIUM SERUM 3.8 MEQ/L (3.5-5.1)
== END ==
LOC: SKLAB4 10:09
PROVIDERS: ATTEND Family Medicine
DX: E87.6 Hypokalemia (principal)

== ENCOUNTER 2019-07-26 00:03 | Emergency (ER) | payer MEDICARE, MEDICAID ==
[~2019-07-26] VITALS: Ht 162.6 cm; Wt 82.3 kg
[~2019-07-26 00:03] MED LIST changes: -AUGM500T34 PO; +DIGO0.12 PO; -DIGO0.123 PO; -OMEP1CAP73 PO; +OMEP20CA4 PO
[2019-07-26] MEDS ORDERED: TETANUS/DIPHTHERIA TOX ADSORB ADULT 0.5ML SYR/VIAL (90714) IM ONE (00:45)
[2019-07-26] MEDS ORDERED: AUGM500T34 PO (01:34)
[2019-07-26] MEDS ORDERED: AUGMENTIN 875 MG TAB PO ONE (01:45)
[2019-07-26 01:58] VITALS: BP 165/77
== END 2019-07-26 02:11 | disposition home or self-care (01) ==
LOC: M ED 00:03
DX: S91.312A Laceration without foreign body, left foot, initial encounter (principal); W22.8XXA Striking against or struck by other objects, initial encounter; Y92.89 Other specified places as the place of occurrence of the external cause; J44.9 Chronic obstructive pulmonary disease, unspecified; E11.9 Type 2 diabetes mellitus without complications; I10 Essential (primary) hypertension; Z86.718 Personal history of other venous thrombosis and embolism; Z79.899 Other long term (current) drug therapy; Z79.4 Long term (current) use of insulin; Z79.01 Long term (current) use of anticoagulants

== ENCOUNTER → 2020-06-23 | Outpatient (REF) | payer MEDICARE, MEDICAID ==
[~2020-06-23] MED LIST changes: -ARTIDRO2 OU; -ASPI81TA85 PO; +ASPI81TA86 PO; +AUGM500T34 PO; +BUDE0.5S6 PO; +CEFD1CAP8 PO; -DIGO0.12 PO; +DIGO0.123 PO; +KLOR10TA76 PO; +OMEP1CAP73 PO; -OMEP20CA4 PO; +OXYB5TAB10 PO; +PANT40TA29 PO; -PANT40TA3 PO; +PERF20NE2 PO; +POLYOPD OU
== END ==
LOC: M SFHCCLAY 16:09 → M LAB REF 16:09
PROVIDERS: ATTEND Family Medicine
DX: R53.83 Other fatigue (principal); R31.9 Hematuria, unspecified

== ENCOUNTER 2020-06-25 17:47 | Inpatient (IN) | payer MEDICARE, MEDICAID ==
[~2020-06-25] VITALS: Ht 157.5 cm; Wt 77.2 kg
[~2020-06-25 17:47] MED LIST changes: -BUDE0.5S6 PO; -CEFD1CAP8 PO; -KLOR10TA76 PO; -OXYB5TAB10 PO; -PERF20NE2 PO
[2020-06-25] MEDS ORDERED: FUROSEMIDE 40MG/4ML VIAL (J1940) IV ONE (18:15)
[2020-06-25] MEDS ORDERED: methylPREDNISolone 125MG 2ML VIAL IV ONE (18:15)
[2020-06-25] MEDS: IPRATROPIUM 0.5MG/ALBUTEROL 2.5MG INH SOL UD 3ML (DUONEB) NEB PRN (18:30)
[2020-06-25 18:32] LABS: ABG BASE EXCESS 15.4 (-2.0-2.0); ABG HCO3 46.3 MEQ/L (22.0-26.0); ABG O2 SATURATION 97.3 % (95.0-99.0); ABG PARTIAL PRESSURE O2 93.7 mmHg (75.0-100.0); ABG STANDARD HCO3 39.3 MEQ/L (22.0-26.0); ABG TOTAL CO2 49.2 MEQ/L (23.0-31.0); ABG pH (ARTERIAL) 7.299 UNITS (7.350-7.450)
[2020-06-25 18:34] LABS: ABG PARTIAL PRESSURE CO2 96.4 mmHg (35.0-45.0)
[2020-06-25 18:34] LABS: BASO % 0.1 % (0.0-1.0); HEMATOCRIT 38.6 % (36.0-47.0); HEMOGLOBIN 11.3 g/dl (12.0-15.5); LYMPH % 8.2 % (24.0-44.0); MEAN CORPUSCULAR HEMOGLOBIN 28.7 pg (27.0-33.0); MEAN CORPUSCULAR HGB CONC 29.3 g/dl (32.0-36.5); MONO # 0.5 10^3/uL (0.0-0.8); MONO % 3.7 % (0.0-5.0); NEUTROPHILS % 87.4 % (36.0-66.0); PLATELET COUNT, AUTOMATED 196 10^3/uL (150-450); RED BLOOD COUNT 3.94 10^6/uL (4.00-5.40); WHITE BLOOD COUNT 12.6 10^3/uL (4.0-10.0)
--- NOTE | 2020-06-25 18:38 | ECGEPIP ---
[facility] - ED Test Date: 2020-06-25 Pat Name: CLAIR LR Department: Room: - Gender: Female Occupational Therapy Assist: gilbert : [id number] Requested By: NATHALIE EDUARDO Order Number: [id number] Reading MD: Ryan Brock Measurements Intervals [place] Rate: 85 P: -29 MN: 185 QRS: 103 QRSD: 91 T: -14 QT: 357 QTc: 427 Interpretive Statements SINUS RHYTHM INCOMPLETE RIGHT BUNDLE BRANCH BLOCK Nonspecific ST-T wave abnormalities Based on morphology and axis changes when compared to multiple studies since 2017 I I suspect multiple misplaced leads- repeat as clinically indicated Electronically Signed on 06-25-2020 18:37:54 EDT by Ryan Brock
[2020-06-25] MEDS ORDERED: BUDE0.5S6 PO (18:43)
[2020-06-25] MEDS ORDERED: PANT40TA29 PO (18:43)
[2020-06-25] MEDS ORDERED: CEFD1CAP8 PO (18:43)
[2020-06-25] MEDS ORDERED: PERF20NE2 PO (18:43)
[2020-06-25 19:06] LABS: ALT/SGPT 39 U/L (12-78); BILIRUBIN,DIRECT < 0.1 MG/DL (0.0-0.2); BILIRUBIN,TOTAL 0.2 MG/DL (0.2-1.0); BLOOD UREA NITROGEN 21 MG/DL (7-18); CALCIUM LEVEL 9.3 MG/DL (8.8-10.2); CARBON DIOXIDE LEVEL 44 MEQ/L (21-32); CHLORIDE LEVEL 90 MEQ/L (98-107); CK-MB VALUE MASS 2.5 NG/ML (<3.6); CPK CREATINE PHOSPHOKINASE 59 U/L (26-192); GLOMERULAR FILTRATION RATE 41.6 (>32); GLUCOSE, FASTING 169 MG/DL (70-100); MB/CK RELATIVE INDEX 4.24 (< OR =4); NT-PRO BNP 859 PG/ML (<450); POTASSIUM SERUM 4.7 MEQ/L (3.5-5.1); SODIUM LEVEL 138 MEQ/L (136-145); TOTAL PROTEIN 6.9 GM/DL (6.4-8.2); TROPONIN I 0.03 NG/ML (< 0.10)
[2020-06-25] MEDS ORDERED: TORS100T PO (19:29)
[2020-06-25] MEDS ORDERED: VENTAER INH (19:30)
[2020-06-25] MEDS ORDERED: ACET-683 PO (19:30)
[2020-06-25 19:38] LABS: ABG BASE EXCESS 15.3 (-2.0-2.0); ABG HCO3 46.2 MEQ/L (22.0-26.0); ABG O2 SATURATION 94.1 % (95.0-99.0); ABG PARTIAL PRESSURE O2 72.3 mmHg (75.0-100.0); ABG STANDARD HCO3 39.1 MEQ/L (22.0-26.0); ABG TOTAL CO2 49.2 MEQ/L (23.0-31.0); ABG pH (ARTERIAL) 7.297 UNITS (7.350-7.450)
[2020-06-25 19:39] LABS: ABG PARTIAL PRESSURE CO2 96.7 mmHg (35.0-45.0)
--- NOTE | 2020-06-25 20:29 | HPEPDOC ---
[facility] Medical History & Physical Date of Admission Jun 25, 2020 Date of Service: Jun 25, 2020 Primary Care Physician: Onel Cisse MD Attending Physician: SUSAN IRVING MD History and Physical TIME OF SERVICE: 8:30 PM / CC time 30 min CHIEF COMPLAINT: Shortness of breath The majority of history is obtained from VICE PRESIDENT EDUCATION Dani Muller and the patient's daughter. HISTORY OF PRESENT ILLNESS: This 85-year-old female's daughter, Digna Silva, brought her to the hospital for evaluation because she has been having shortness of breath, O2 sats that drop as low as the 70s intermittently, lethargy and a cough that is productive of thick sputum for few days. Per d/w Dani Muller the patient was more alert and talkative on arrival. Because her CO2 was in the 90s she was put on BIPAP, but over the last hour she has became a lot more lethargic despite being on BIPAP and receiving solumedrol, Lasix and Duonebs. At the time of my visit the patient was not opening her eyes, not following commands and not talking and would only grimace or wave her hands with deep sternal rub. REVIEW OF SYSTEMS: unobtainable PAST MEDICAL/ SURGICAL HISTORY: Cor pulmonale/ HFpEF / Grade 1 DD AV sclerosis Mild TVR Group 3 ? Pulm HTN (PASP 30-40mmHg) COPD Chronic O2 dependent respiratory failure ( 2 L) A. Fib on apixaban NIDDM CKD 3 Obesity Chronic venous insufficiency SOCIAL HISTORY: Former smoker FAMILY HISTORY: Unobtainable ALLERGIES: Please see below. HOME MEDICATIONS: Please see below. PHYSICAL EXAMINATION: Vital Signs Date Time Temp Pulse Resp B/P (MAP) Pulse Ox O2 Delivery O2 Flow Rate FiO2 06/25/20 17:49 97.4 94 16 134/77 (96) 95 Room Air 06/25/20 18:09 2.0 06/25/20 18:42 40 GEN: lethargic / GCS 5 points E1, V1, M3 (flexion with sternal rub) INTEGUMENT: there is no facial plethora / she is not flushed or diaphoretic HEENT:NCAT / lips not cyanotic BIPAP in place / mucus membranes dry pink / sclera anicteric CVS: RRR/ distant heart sounds / radial pulses diminished / compression stalkings on both lower legs LUNGS: there is no nasal flaring / she is not using accessory muscles / there is decreased respiratory expansion/ lungs are hyper resonant with deminished breath sounds ABDOMEN: obese / soft & she doesn't grimace with palpation NEURO: she has asterixis and is twitching occasionally LABORATORY DATA: 06/25/20 18:06 Immature Granulocyte % (Auto) 0.6, Neutrophils (%) (Auto) 87.4H, Lymphocytes (%) (Auto) 8.2L, Monocytes (%) (Auto) 3.7, Eosinophils (%) (Auto) 0.0, Basophils (%) (Auto) 0.1, Neutrophils # (Auto) 11.0H, Lymphocytes # (Auto) 1.0L, Monocytes # (Auto) 0.5, Eosinophils # (Auto) 0.0, Basophils # (Auto) 0.0, Nucleated Red Blood Cells % (auto) 0.0, Anion Gap 4L, Glomerular Filtration Rate 41.6, Lactic Acid Level 2.7*H, Calcium Level 9.3, Total Bilirubin 0.2, Direct Bilirubin < 0.1, Aspartate Amino Transf (AST/SGOT) 24, Alanine Aminotransferase (ALT/SGPT) 39, Alkaline Phosphatase 123H, Total Creatine Kinase 59, Creatine Kinase MB 2.5, Creatine Kinase MB Relative Index 4.24H, Troponin I 0.03, XI-Kse-N-Type Natriuretic Peptide 859H, Total Protein 6.9, Albumin 3.0L, Albumin/Globulin Ratio 0.8L 06/25/20 18:16: Blood Gas Bicarbonate Standard 39.3H, Arterial Blood pH 7.299L, Arterial Blood Partial Pressure CO2 96.4*H, Arterial Blood Partial Pressure O2 93.7, Arterial Blood Total CO2 49.2H, Arterial Blood HCO3 46.3H, Arterial Blood Base Excess 15.4H, Arterial Blood Oxygen Saturation 97.3 06/25/20 19:17: Blood Gas Bicarbonate Standard 39.1H, Arterial Blood pH 7.297L, Arterial Blood Partial Pressure CO2 96.7*H, Arterial Blood Partial Pressure O2 72.3L, Arterial Blood Total CO2 49.2H, Arterial Blood HCO3 46.2H, Arterial Blood Base Excess 15.3H, Arterial Blood Oxygen Saturation 94.1L IMAGING: Chest xray "IMPRESSION: Right upper lobe pneumonia." MICROBIOLOGY: 06/25/20 Respiratory Virus Panel (PCR) (LAKISHA) - Final, Complete 06/25/20 Blood Culture, Received Pending 06/25/20 Blood Culture, Received Pending ASSESSMENT: is an 85 yr old w a hx of Cor pulmonale, Pulm HTN, COPD, O2 dependent respiratory failure, NIDDM, Afib & CKD3 who was brought in for evaluation of dyspnea, hypoxia and lethargy & will be admitted for management of metabolic encephalopathy, acute hypercapnic respiratory failure, acute COPD & Sepsis 2/2 RUL PNA. PLAN: 1 Encephalopathy likely 2/2 hypercapnea Apparently the patient became more altered despite BIPAP Because her CO2 is in the 90s and she has asterixis I suspect this is due to high CO2 We can't intubate the patient because her CODE status is DNI & the patient's daughter declined the offer to transition to OPTOMECHANICAL TECHNICIAN Plan: admit to ICU / c/w BIPAP / f/u serial VBGs / treat COPD and PNA / if she continues to have AMS despite resolution of the hypercapnea and if the ammonia is wnl, we will order a CT of the head 2 Acute hypercapnic respiratory failure ABG shows primary acute respiratory acidosis with secondary metabolic alkalosis At her baseline she is O2 dependent Based on ER notes the O2 sats were dropping as low as the 70s Plan: c/w BIPAP / treat COPD and PNA / f/u serial VBGs 3 Acute COPD Trigger is likely PNA The respiratory panel is neg According to the patient's daughter the pt has been intubated at least 2 x in the past BAP-65 Score to predict mortality in acute COPD = Class III = 2.2% risk of in hospital mortality = NIVV and or ICU care are appropriate Plan: c/w BIPAP bc pH <7.3 and PaCO2 >45 / continuous pulse oximetry / aspiration precautions / NPO while on BIPAP / Dunebs Q6H, Albuterol Q1HP/ c/w IV solumedrol w IV PPI / she is on abx for PNA 4 Sepsis 2/2 RUL PNA SIRS criteria include HR >90 / WBC >12 / RR > 20 She also has lactic acidosis NEW2S Score = 12 points = high risk = requirea frequent monitoring, ICU level of care appropriate PORT/PSI Score to predict risk of mortality in pt w CAP = 143 points = Risk class V = 27-29.2% mortality, hospital admission is appropriate Plan: initiate Sepsis protocol / trend lactic acid Zosyn and Vanc pending MRSA, sputum cx, strep pneumo, legionella and blood cx results / will hold off of fluids bc of hx of diastolic CHF unless her BP drops / Acetaminophen PRN for fever / target MAP at of least 65 to 70 / f/u Is and Os with target UOP of at least 0.5 ml/kg/H / target serum glucose 140-180 while acutely ill 5 Cor pulmonale/ HFpEF / Pulm HTN Plan: hold PO torsemide and spironolactone / c/w IV lasix 40mg Q12H while NPO 6 Paroxysmal ? 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 COPD Plan: f/u CBC DVT PROPHYLAXIS: n/a on treatment dose Lovenox bc of afib DISPOSITION: possibly home vs placement after more than 2 midnight's stay Home Medications Scheduled Apixaban (Eliquis) 5 Mg Tablet, 5 MG PO BID Atorvastatin Calcium (Atorvastatin Calcium) 40 Mg Tab, 40 MG PO QHS Budesonide (Budesonide) 0.5 Mg/2 Ml Ampul.neb, 0.5 MG PO BID Calcium Carbonate/Vitamin D3 (Calcium 500-Vit D3 200 Tablet) 1 Each Tablet, 1 TAB PO DAILY Cefdinir (Cefdinir) 300 Mg Capsule, 300 MG PO BID started 06/24/20 for 10 days Diltiazem HCl (Cartia Xt) 120 Mg Cap, 120 MG PO DAILY Docusate Sodium (Docusate Sodium) 100 Mg Capsule, 100 MG PO BID Formoterol Fumarate (Perforomist) 20 Mcg/2 Ml Vial.neb, 20 MCG PO BID Guaifenesin (Mucinex) 600 Mg Tab.er.12h, 600 MG PO BID Pantoprazole Sodium (Pantoprazole Sodium) 40 Mg Tablet.dr, 40 MG PO QAM Polyvinyl Alcohol (Artificial Tears) 1.4 % Kinjal, 1 DROP OU QID Prednisone (Prednisone) 10 Mg Tablet, 10 MG PO DAILY Spironolactone (Spironolactone) 25 Mg Tab, 25 MG PO DAILY Torsemide (Torsemide) 100 Mg Tablet, 100 MG PO DAILY Umeclidinium [place] (Incruse Ellipta) 62.5 Mcg Blst.w.dev, 1 PUFF INH DAILY Vitamin B Complex/Folic Acid (B-Complex Tablet) 0.4 Mg Tablet, 1 TAB PO DAILY Scheduled PRN Acetaminophen (Acetaminophen) 500 Mg Tablet, 500 MG PO Q4H PRN for PAIN Albuterol Sulfate (Ventolin Hfa) 18 Gm Hfa.aer.ad, 2 PUFF INH Q4-6HP PRN for wheezing Ipratropium/Albuterol Sulfate (Iprat-Albut 0.5-3(2.5) mg/3 ml) 3 Ml Ampul.neb, 1 VIAL INH Q4H PRN for SHORTNESS OF BREATH Sodium Phosphate,[place]-Dibasic (Enema) 133 Ml Enema, [address] DAILY PRN for CONSTIPATION Allergies Coded Allergies: No Known Allergies (Unverified , 12/25/18) A-FIB/CHADSVASC A-FIB History Current/History of A-Fib/PAF?: Yes Current PO Anticoag Therapy: No Age/Risk Factor Scoring CHADSVASC: CHADSVASC Response (Comments) Value Age Risk Factor Age >/= 75 years old 2 Gender Risk Factor Female 1 Hx of CHF Yes 1 Hx of HTN Yes 1 Hx of Stroke/TIA/or VTE No 0 Hx of Diabetes Yes 1 Hx of Vascular Disease No 0 Total 6 Treatment Treatment ordered: Other (lovenox bc npo) Other anticoagulant ordered: lovenox renally adjusted dose SUSAN IRVING MD Jun 25, 2020 20:29
[2020-06-25] MEDS ORDERED: ACETAMINOPHEN TAB 650MG DOSE (2X325MG) PO PRN (20:30)
[2020-06-25] MEDS ORDERED: ALBUTEROL SULFATE 2.5 MG/0.5 ML INH NEB SOLN NEB PRN (20:30)
[2020-06-25] MEDS ORDERED: MAALOX 30 ML SUSP *UDC PO PRN (20:30)
--- NOTE | 2020-06-25 20:54 | REPVR ---
PROCEDURE INFORMATION: Exam: XR Chest, 1 View Exam date and time: 06/25/2020 6:06 PM Age: 85 years old Clinical indication: Shortness of breath; Additional info: Dyspnea/cough TECHNIQUE: Imaging protocol: XR of the chest Views: 1 view. COMPARISON: CR Chest, 2 view PA, Lat 06/01/2019 11:27 AM FINDINGS: Lungs: Linear scarring in the left lung base. Subtle infiltrate in the right upper lobe. Pleural space: Unremarkable. No pleural effusion. No pneumothorax. Heart/Mediastinum: Mild cardiomegaly. Bones/joints: Unremarkable. IMPRESSION: Right upper lobe pneumonia. Electronically signed by: Chapito Kellogg On 06/25/2020 20:54:10 PM
[2020-06-25] MEDS ORDERED: ENOXAPARIN 80MG/0.8ML SYRINGE (J1650 PER 10MG) SC SCH ×2 (21:00→22:00)
[2020-06-25] MEDS ORDERED: HumaLOG INSULIN (NovoLOG) PER UNIT SC SCH (21:00)
[2020-06-25] MEDS ORDERED: APIXABAN 5 MG TAB (ELIQUIS) PO SCH (21:00)
[2020-06-25] MEDS ORDERED: GLUCAGON INJ 1MG VIAL SC PRN (22:00)
[2020-06-25] MEDS ORDERED: PIPERACILLIN/TAZOBACTAM SOD 4.5 GM in D5W MINI-BAG PLUS 100 ML IV SCH (22:00)
[2020-06-25] MEDS ORDERED: ACETAMINOPHEN 650 MG SUPP PR PRN (22:00)
[2020-06-25] MEDS ORDERED: GLUCOSE 4GM CHEW TABLET PO PRN (22:00)
[2020-06-25] MEDS ORDERED: DEXTROSE 50% 50 ML SYRINGE IV PRN (22:00)
[2020-06-25] MEDS ORDERED: ZOSYN 3.375GM VIAL (J2543) As Ordered ONE (22:04)
[2020-06-25] MEDS ORDERED: ZOSYN 4.5GM VIAL (J2543) As Ordered ONE (22:08)
[2020-06-25] MEDS ORDERED: VANCOMYCIN HCL 750 MG, VIAL MATE ADAPTER 1 EACH in D5W 250 ML IV ONE (23:00)
[2020-06-25 23:09] LABS: VENOUS BASE EXCESS 14.4 (-2.0-2.0); VENOUS HCO3 44.1 MEQ/L (23.0-27.0); VENOUS O2 SATURATION 84.3 % (60.0-80.0); VENOUS PARTIAL PRESSURE CO2 83.6 mmHg (38.0-50.0); VENOUS PARTIAL PRESSURE O2 48.8 mmHg (30.0-50.0); VENOUS STANDARD HCO3 37.9 MEQ/L; VENOUS TOTAL CO2 46.7 MEQ/L (24.0-28.0)
[2020-06-25 23:30] VITALS: BP 139/66
[2020-06-25] MEDS: FUROSEMIDE 40MG/4ML VIAL (J1940) IV SCH (23:44)
[2020-06-25] MEDS: PIPERACILLIN/TAZOBACTAM SOD 4.5 GM in D5W MINI-BAG PLUS 100 ML IV SCH (23:49)
[2020-06-26] VITALS (10 sets, daily range): BP systolic 124–142; BP diastolic 57–70
[2020-06-26] MEDS ORDERED: methylPREDNISolone 125MG 2ML VIAL IV SCH
[2020-06-26] MEDS ORDERED: VANCOMYCIN HCL 1,000 MG, VIAL MATE ADAPTER 1 EACH in D5W 250 ML IV SCH (01:00)
[2020-06-26] MEDS: IPRATROPIUM 0.5MG/ALBUTEROL 2.5MG INH SOL UD 3ML (DUONEB) NEB SCH ×4 (02:16→19:27)
[2020-06-26] MEDS ORDERED: FLUBLOK(EGG FREE)(QUAD)INFLUENZA VACC 0.5ML SYRINGE 18YRS & OLDER IM SCH (03:30)
[2020-06-26 04:40] LABS: HEMATOCRIT 39.6 % (36.0-47.0); HEMOGLOBIN 11.8 g/dl (12.0-15.5); MEAN CORPUSCULAR HEMOGLOBIN 28.7 pg (27.0-33.0); MEAN CORPUSCULAR HGB CONC 29.8 g/dl (32.0-36.5); MEAN CORPUSCULAR VOLUME 96.4 fl (80.0-96.0); PLATELET COUNT, AUTOMATED 188 10^3/uL (150-450); RED BLOOD COUNT 4.11 10^6/uL (4.00-5.40); VENOUS BASE EXCESS 17.3 (-2.0-2.0); VENOUS HCO3 45.3 MEQ/L (23.0-27.0); VENOUS O2 SATURATION 99.4 % (60.0-80.0); VENOUS PARTIAL PRESSURE O2 153.1 mmHg (30.0-50.0); VENOUS PH 7.423 UNITS (7.330-7.430); VENOUS STANDARD HCO3 41.5 MEQ/L; VENOUS TOTAL CO2 47.5 MEQ/L (24.0-28.0); WHITE BLOOD COUNT 9.6 10^3/uL (4.0-10.0)
[2020-06-26 05:03] LABS: HEMOGLOBIN A1c 6.6 %
[2020-06-26] MEDS: PIPERACILLIN/TAZOBACTAM SOD 4.5 GM in D5W MINI-BAG PLUS 100 ML IV SCH (05:45)
[2020-06-26 05:47] LABS: ALBUMIN 2.7 GM/DL (3.2-5.2); BILIRUBIN,TOTAL 0.3 MG/DL (0.2-1.0); CALCIUM LEVEL 8.6 MG/DL (8.8-10.2); CREATININE FOR GFR 1.19 MG/DL (0.55-1.30); GLOMERULAR FILTRATION RATE 46.1 (>32); MAGNESIUM LEVEL 1.9 MG/DL (1.8-2.4); TOTAL PROTEIN 6.2 GM/DL (6.4-8.2); TROPONIN I 0.02 NG/ML (< 0.10)
[2020-06-26 05:51] LABS: ABG BASE EXCESS 16.8 (-2.0-2.0); ABG O2 SATURATION 97.8 % (95.0-99.0); ABG PARTIAL PRESSURE O2 99.7 mmHg (75.0-100.0); ABG STANDARD HCO3 40.8 MEQ/L (22.0-26.0); ABG TOTAL CO2 47.2 MEQ/L (23.0-31.0); ABG pH (ARTERIAL) 7.402 UNITS (7.350-7.450)
[2020-06-26 05:54] LABS: ABG PARTIAL PRESSURE CO2 73.9 mmHg (35.0-45.0)
[2020-06-26] MEDS ORDERED: PIPERACILLIN/TAZOBACTAM SOD 4.5 GM in D5W MINI-BAG PLUS 100 ML IV SCH (06:00)
[2020-06-26] MEDS ORDERED: HumaLOG INSULIN (NovoLOG) PER UNIT SC SCH ×2 (06:00→07:30)
[2020-06-26] MEDS ORDERED: BUDESONIDE 0.5 MG/2 ML INHALATION SUSPENSION PO SCH (08:00)
[2020-06-26 08:14] LABS: ABG BASE EXCESS 15.9 (-2.0-2.0); ABG HCO3 43.6 MEQ/L (22.0-26.0); ABG O2 SATURATION 95.6 % (95.0-99.0); ABG PARTIAL PRESSURE O2 75.2 mmHg (75.0-100.0); ABG STANDARD HCO3 39.8 MEQ/L (22.0-26.0); ABG TOTAL CO2 45.7 MEQ/L (23.0-31.0); ABG pH (ARTERIAL) 7.418 UNITS (7.350-7.450)
[2020-06-26 08:19] LABS: ABG PARTIAL PRESSURE CO2 69.1 mmHg (35.0-45.0)
[2020-06-26] MEDS ORDERED: PANTOPRAZOLE 40MG TAB (PROTONIX) PO SCH (09:00)
[2020-06-26] MEDS ORDERED: predniSONE 20 MG TAB PO SCH (09:00)
[2020-06-26] MEDS ORDERED: FLEET ENEMA PR PRN (09:15)
--- NOTE | 2020-06-26 09:32 | IPNPDOC ---
Subjective Date Seen The patient was seen on 06/26/20. Patient was seen at bedside this am. AAOx3 and clinically improved from yesterday. She's taken off of BIPAP and satting 94% on 2L O2. She's still pursing her lips breathing but she says that she swallowed a piece of the cereal wrong and has been coughing since. Denies CP, SOB, abdominal discomfort, n/v/d. No acute events overnight reported by nursing ROS: all 12 points have been reviewed. See HPI for pertinent positives VITAL SIGNS: Please see below GEN: elderly female, NAD, breathing on 2L NC; no accessory muscle use HEENT: Normocephalic / atraumatic / lips acyanotic /mucus membranes dry/ sclera anicteric CVS: Heart rate irregularly irregular, boderline tachy , no m/g/r, 3+ pitting edema in b.l Lower extr, PMI nondisplaced LUNGS: No wheezing, rhonci, or rales heard ABDOMEN: abdomen is soft, non tender with palpation, NBS MSK/EXTREMITIES: range of motion intact in all 4 extremities, no joint effusions or fractures NEURO: CN 2-12 are grossly intact, no focal neuro defecits, AAOX3 SKIN: not flushed or jaundice; no clubbing, cyanosis; bruises in bilateral arms PSYCH: alert and oriented, appropriate mood and affect Subjective Chief Complaint/HPI sob Assessment /Plan Assessment is an 85 yr old w a hx of Cor pulmonale, Pulm HTN, COPD, O2 dependent respiratory failure, NIDDM, Afib & CKD3 who was brought in for evaluation of dyspnea, hypoxia and lethargy & will be admitted for management of metabolic encephalopathy, acute hypercapnic respiratory failure, acute COPD & Sepsis 2/2 RUL PNA. Plan/VTE VTE Prophylaxis Ordered?: Yes Plan #Encephalopathy likely 2/2 Acute hypercapnic respiratory failure -AAOx3 this am -Taken off of BIPAP and transitioned to 2L NC and satting well at 94%; no accessory muscle use -ABG this am -improved 7.42/69.1/75.2% #Acute COPD exacerbation likely 2/2 to PNA - respiratory panel is neg - Continue 2L NC and titrate to 88-92% and duonebs PRN - Continue moxifloxacin - Loading dose of Solumedrol given in ER; will reduce dose of Solu-Medrol - Will resume home inhaled therapy #RUL NA - possibly 2/2 aspiration; coverage for anaerobic organisms - Clinically reports improvement of her breathing - Hemodynamically stable and afebrile - Status post lactic acidosis; leukocytosis has resolved - Puree diet and bedside swallow eval since patient swallowed a cheerio wrong and is coughing as a result of it - Will resume mucinex 600mg PO BID - Will de-escalate antibiotic therapy to Moxifloxacin #Cor pulmonale/ HFpEF / Pulm HTN - Continue lasix 40MG iv bid - Will add aldactone 25mg po daily - continue cardizem 60mg PO BID # Paroxysmal Afib - EKG showed RBBB - Trop trend x2 WNL - Trop at 1400 today - pending - Continue on telemetry - Continue Cardizem 60mg IV Q12H - Continue therapeutic Lovenox # Hyperlipidemia - Continue atorvastatin 40mg po qhs #NIDDM - Bs this am is 143 - f/u accuchecks Q6H while NPO & A1C / hypoglycemia protocol / sliding scale insulin #CKD 3 - Cr 1.19 - Will continue to monitor BMP closely DVT ppx: therapeutic lovenox GI ppx: Protonix 40mg PO qd Code status: DNR/DNI IVF: none Diet: Puree diet DISPOSITION: - Will follow up cultures - Anticipate downgrade from ICU this afternoon - Will resume home BiPAP once family brings in device VS, I&O, 24H, Saurabhbone Vital Signs/I&O Vital Signs Date Time Temp Pulse Resp B/P (MAP) Pulse Ox O2 Delivery O2 Flow Rate FiO2 06/26/20 09:10 88 93 Nasal Cannula 2.0 06/26/20 08:00 98.0 19 124/57 (79) 30 I&O- Last 24 Hours up to 6 AM0 06/26/20 06:00 Intake Total 670 ml Output Total 905 ml Balance -235 ml Laboratory Data 24H LABS Laboratory Tests 2 06/25/20 18:06: Immature Granulocyte % (Auto) 0.6, Neutrophils (%) (Auto) 87.4H, Lymphocytes (%) (Auto) 8.2L, Monocytes (%) (Auto) 3.7, Eosinophils (%) (Auto) 0.0, Basophils (%) (Auto) 0.1, Neutrophils # (Auto) 11.0H, Lymphocytes # (Auto) 1.0L, Monocytes # (Auto) 0.5, Eosinophils # (Auto) 0.0, Basophils # (Auto) 0.0, Nucleated Red Blood Cells % (auto) 0.0, Anion Gap 4L, Glomerular Filtration Rate 41.6, Lactic Acid Level 2.7*H, Calcium Level 9.3, Total Bilirubin 0.2, Direct Bilirubin < 0.1, Aspartate Amino Transf (AST/SGOT) 24, Alanine Aminotransferase (ALT/SGPT) 39, Alkaline Phosphatase 123H, Total Creatine Kinase 59, Creatine Kinase MB 2.5, Creatine Kinase MB Relative Index 4.24H, Troponin I 0.03, GH-Elv-J-Type Natriuretic Peptide 859H, Total Protein 6.9, Albumin 3.0L, Albumin/Globulin Ratio 0.8L 06/25/20 18:16: Blood Gas Bicarbonate Standard 39.3H, Arterial Blood pH 7.299L, Arterial Blood Partial Pressure CO2 96.4*H, Arterial Blood Partial Pressure O2 93.7, Arterial Blood Total CO2 49.2H, Arterial Blood HCO3 46.3H, Arterial Blood Base Excess 15.4H, Arterial Blood Oxygen Saturation 97.3 06/25/20 19:17: Blood Gas Bicarbonate Standard 39.1H, Arterial Blood pH 7.297L, Arterial Blood Partial Pressure CO2 96.7*H, Arterial Blood Partial Pressure O2 72.3L, Arterial Blood Total CO2 49.2H, Arterial Blood HCO3 46.2H, Arterial Blood Base Excess 15.3H, Arterial Blood Oxygen Saturation 94.1L 06/25/20 20:39: Bedside Glucose (Misc Panel) 156H 06/25/20 23:01: Blood Gas Bicarbonate Standard 37.9, Venous Blood pH 7.340, Venous Blood Partial Pressure CO2 83.6H, Venous Blood Partial Pressure O2 48.8, Venous Blood Total Carbon Dioxide 46.7H, Venous Blood HCO3 44.1H, Venous Blood Oxygen Saturation 84.3H, Venous Blood Base Excess 14.4H, Lactic Acid Followup at 4 Hours 1.5, Ammonia < 10, Troponin I 0.03 06/25/20 23:10: Methicillin-Resist S.aureus DNA PCR NOT DETECTED 06/25/20 23:11: 06/25/20 23:22: Bedside Glucose (Misc Panel) 199H 06/26/20 04:30: Nucleated Red Blood Cells % (auto) 0.0, Blood Gas Bicarbonate Standard 41.5, Venous Blood pH 7.423, Venous Blood Partial Pressure CO2 71.0H, Venous Blood Partial Pressure O2 153.1H, Venous Blood Total Carbon Dioxide 47.5H, Venous Blood HCO3 45.3H, Venous Blood Oxygen Saturation 99.4H, Venous Blood Base Excess 17.3H, Anion Gap 1L, Glomerular Filtration Rate 46.1, Estimated Mean Plasma Glucose 143H, Hemoglobin A1c 6.6, Calcium Level 8.6L, Magnesium Level 1.9, Total Bilirubin 0.3, Aspartate Amino Transf (AST/SGOT) 17, Alanine Aminotransferase (ALT/SGPT) 32, Alkaline Phosphatase 109, Troponin I 0.02#, Total Protein 6.2L, Albumin 2.7L, Albumin/Globulin Ratio 0.8L 06/26/20 05:24: Bedside Glucose (Misc Panel) 226H 06/26/20 05:33: Blood Gas Bicarbonate Standard 40.8H, Arterial Blood pH 7.402, Arterial Blood Partial Pressure CO2 73.9*H, Arterial Blood Partial Pressure O2 99.7, Arterial Blood Total CO2 47.2H, Arterial Blood HCO3 45.0H, Arterial Blood Base Excess 16.8H, Arterial Blood Oxygen Saturation 97.8 06/26/20 08:01: Blood Gas Bicarbonate Standard 39.8H, Arterial Blood pH 7.418, Arterial Blood Partial Pressure CO2 69.1*H, Arterial Blood Partial Pressure O2 75.2, Arterial Blood Total CO2 45.7H, Arterial Blood HCO3 43.6H, Arterial Blood Base Excess 15.9H, Arterial Blood Oxygen Saturation 95.6 CBC/BMP Laboratory Tests 06/25/20 18:06 06/26/20 04:30 Microbiology Microbiology 06/25/20 Respiratory Virus Panel (PCR) (LAKISHA) - Final, Complete 06/25/20 Blood Culture, Received Pending 06/25/20 Blood Culture, Received Pending GME ATTESTATION GME ATTESTATION My faculty preceptor for this patient encounter was physically present during the encounter and was fully available. All aspects of the patient interview, examination, medical decision making process, and medical care plan development were reviewed and approved by the faculty preceptor. The faculty preceptor is aware and concurs with the plan as stated in the body of this note and will attest to such by his/her cosignature. ATTENDING NOTE I, Vijesh Koroma, have independently examined this patient and performed my own physical exam, as well as reviewed the documentation and edited where necessary. I have discussed in detail with the resident / student the findings and plan of treatment as documented by the resident / student and edited their note. I agree with their findings and treatment plan and have edited their documentation. I will continue to follow the patient during this hospital stay. Ahbinav Orozco DO Jun 26, 2020 09:32 KIRAN KOROMA MD Jun 26, 2020 16:18
[2020-06-26] MEDS: SPIRONOLACTONE 25 MG TAB PO SCH (09:48)
[2020-06-26] MEDS: PANTOPRAZOLE 40MG VIAL (C9113 PER 1) IV SCH (09:48)
[2020-06-26] MEDS: APIXABAN 5 MG TAB (ELIQUIS) PO SCH ×2 (09:49→20:51)
[2020-06-26] MEDS: guaiFENesin ER 600 MG TAB PO SCH ×2 (09:49→20:51)
--- NOTE | 2020-06-26 09:50 | ECGEPIP ---
[facility] Test Date: 2020-06-25 Pat Name: CLAIR LR Department: Room: [place] [address] Gender: Female Special Library Librarian: CAIN : 1935 Requested By: SUSAN IRVING Order Number: [id number] Reading MD: Jair Chew Measurements Intervals [place] Rate: 87 P: FL: 0 QRS: -28 QRSD: 90 T: 60 QT: 370 QTc: 447 Interpretive Statements Normal sinus rhythm with PACs Left axis deviation Nonspecific T wave abnormality [place] shift or now properly placed limb leads, vs. earlier tracing this date Tracing now comparable to 05/26/2019 Electronically Signed on 06-26-2020 9:50:16 EDT by Jair Chew
[2020-06-26] MEDS ORDERED: LevoFLOXacin 500 MG TABLET PO ONE (11:00)
[2020-06-26] MEDS: POLYVINYL ALCOHOL OPHTH SOLN 15 ML(LIQUITEARS) OU SCH ×4 (11:13→21:00)
[2020-06-26] MEDS: methylPREDNISolone 125MG 2ML VIAL IV SCH (11:14)
[2020-06-26] MEDS: FUROSEMIDE 40MG/4ML VIAL (J1940) IV SCH (11:14)
[2020-06-26] MEDS: HumaLOG INSULIN (NovoLOG) PER UNIT SC SCH ×3 (13:18→20:52)
[2020-06-26] MEDS: FORMOTEROL FUMARATE 20 MCG/2 ML INHALATION SOLUTION (PERFOROMIST) INH SCH ×2 (13:40→19:27)
[2020-06-26] MEDS: BUDESONIDE 0.5 MG/2 ML INHALATION SUSPENSION NEB SCH (19:27)
[2020-06-26] MEDS: ATORVASTATIN 20 MG TAB PO SCH (20:50)
[2020-06-27] VITALS: BP 134/66
[2020-06-27] MEDS: methylPREDNISolone 125MG 2ML VIAL IV SCH ×3 (00:21→23:30)
[2020-06-27] MEDS: FUROSEMIDE 40MG/4ML VIAL (J1940) IV SCH ×3 (00:21→23:30)
[2020-06-27] MEDS: IPRATROPIUM 0.5MG/ALBUTEROL 2.5MG INH SOL UD 3ML (DUONEB) NEB SCH ×4 (01:52→19:46)
[2020-06-27 04:00] VITALS: BP 148/80
[2020-06-27 05:42] LABS: BASO % 0.1 % (0.0-1.0); EOS % 0.1 % (0.0-3.0); HEMATOCRIT 39.2 % (36.0-47.0); HEMOGLOBIN 11.7 g/dl (12.0-15.5); LYMPH # 0.6 10^3/uL (1.5-5.0); LYMPH % 4.5 % (24.0-44.0); MEAN CORPUSCULAR HEMOGLOBIN 28.3 pg (27.0-33.0); MEAN CORPUSCULAR HGB CONC 29.8 g/dl (32.0-36.5); MEAN CORPUSCULAR VOLUME 94.9 fl (80.0-96.0); MONO # 0.2 10^3/uL (0.0-0.8); MONO % 1.9 % (0.0-5.0); NEUTROPHILS # 11.2 10^3/uL (1.5-8.5); NEUTROPHILS % 92.6 % (36.0-66.0); PLATELET COUNT, AUTOMATED 198 10^3/uL (150-450); RED BLOOD COUNT 4.13 10^6/uL (4.00-5.40); WHITE BLOOD COUNT 12.1 10^3/uL (4.0-10.0)
[2020-06-27] MEDS ORDERED: LevoFLOXacin 250 MG TABLET PO SCH (06:00)
[2020-06-27 06:14] LABS: ALBUMIN 2.7 GM/DL (3.2-5.2); BILIRUBIN,TOTAL 0.3 MG/DL (0.2-1.0); CALCIUM LEVEL 8.8 MG/DL (8.8-10.2); CREATININE FOR GFR 1.17 MG/DL (0.55-1.30); MAGNESIUM LEVEL 2.5 MG/DL (1.8-2.4); POTASSIUM SERUM 3.8 MEQ/L (3.5-5.1); TOTAL PROTEIN 6.5 GM/DL (6.4-8.2)
[2020-06-27] MEDS: FORMOTEROL FUMARATE 20 MCG/2 ML INHALATION SOLUTION (PERFOROMIST) INH SCH ×2 (07:05→19:46)
[2020-06-27] MEDS: BUDESONIDE 0.5 MG/2 ML INHALATION SUSPENSION NEB SCH ×2 (07:05→19:46)
[2020-06-27 08:00] VITALS: BP 146/71
[2020-06-27] MEDS: MOXIFLOXACIN HCL 400 MG in IV 1 EA IV SCH (08:26)
[2020-06-27] MEDS: HumaLOG INSULIN (NovoLOG) PER UNIT SC SCH ×4 (08:26→20:25)
[2020-06-27] MEDS: guaiFENesin ER 600 MG TAB PO SCH ×2 (08:26→21:23)
[2020-06-27] MEDS: PANTOPRAZOLE 40MG VIAL (C9113 PER 1) IV SCH (08:26)
[2020-06-27] MEDS: POLYVINYL ALCOHOL OPHTH SOLN 15 ML(LIQUITEARS) OU SCH ×4 (08:27→21:24)
[2020-06-27] MEDS: APIXABAN 5 MG TAB (ELIQUIS) PO SCH ×2 (08:27→21:23)
[2020-06-27] MEDS: SPIRONOLACTONE 25 MG TAB PO SCH (08:27)
--- NOTE | 2020-06-27 10:52 | IPNPDOC ---
Text Note Date of Service The patient was seen on 06/27/20. NOTE Subjective: Patient is an 85-year-old female with a PMHx of Cor Pulmonale / Diastolic CHF (Grade 1) / Pulmonary HTN, COPD, Chronic hypoxic and hypercapnic respiratory failure (2L of Oxygen during day / Trilogy Ventilatory at night), A. fib (on Eliquis), NIDDM2, CKD3, Chronic venous insufficiency and Obesity who presented to the emergency room because of shortness of breath, hypoxia and lethargy. Patient's daughter had reported that she has been expressing a productive cough for last couple of days. On arrival to emergency room, patient was found to be in hypercarbic respiratory failure, required BiPAP ventilation. Discussion with daughter during admission about CODE STATUS, had indicated that she is still DNR and DNI. Patient's family did not want to pursue with comfort measures at that time. Upon evaluation of patient on 06/26, patient was oriented to person, place and time / president, and BiPAP ventilation was discontinued. Patient was seen and examined at the bedside. Currently patient has Trilogy ventilatory place overnight. She is awake, alert and oriented to person, place and time. She denies any chest pain, shortness of breath or palpitations. Reports a mild cough. Denies any nausea, vomiting, abdominal pain, diarrhea , or urinary discomfort. Objective: Vitals (See below) General: Lying in bed, appears to be comfortable without any acute distress, AAOx3/President HEENT: NC, AT, Trilogy ventilator face mask currently on CVS: +S1S2 Lungs: Fair air entry b/l, very mild wheezing is appreciated bilaterally, no crackles or Abdomen: Soft, ND, NT Extremities: 2+ pitting edema bilaterally, - Calf tenderness Assessment and plan: s/p Acute metabolic encephalopathy - likely 2/2 acute on chronic hypercapnic respiratory failure - Currently, patient is fully alert, oriented 3/president - No focal neurologic deficits noted on exam Acute on chronic hypercapnic respiratory failure - likely 2/2 acute COPD exacerbation / RUL pneumonia / Decompensated Diastolic CHF - Chronic hypoxic and hypercapnic respiratory failure (2L of Oxygen during day / Trilogy Ventilatory at night) - Patient's ABGs have been noted; PCO2 has been trending down. Currently at baseline Acute COPD exacerbation - Patient was that her breathing is doing better - Physical reveals mild expiratory wheezing bilaterally - c/w Solumedrol; will continue to taper - c/w inhaled therapy as ordered Right upper lobe pneumonia - possibly 2/2 CAP, possibly 2/2 aspiration? - Patient has failed outpatient antibiotic therapy with Cefdinir and Doxycycline - Patient has reported a productive cough - Hemodynamically stable and afebrile - Leukocytosis initially improved; leukocytosis today's likely secondary to cortical steroid use - Respiratory panel 06/25: Negative - Blood cultures 06/25: No growth after 24 hours - Pro-calcitonin pending - CXR 06/25: Right upper lobe pneumonia. - c/w Moxifloxacin; s/p Vancomycin and Zosyn (Antibiotic day #2) - Will get speech and swallow evaluation tomorrow; continue with modified diet today Acute on Chronic Diastolic CHF (Grade 1) / Pulmonary HTN / Cor Pulmonale - Clinically patient appears to be significantly volume overloaded - Strict ins and outs, daily weights, fluid restrictions - c/w Furosemide IV and Spironolactone A. fib - c/w rate control with Diltiazem - c/w full anticoagulation with Eliquis DLP - c/w Atorvastatin NIDDM2 - c/w ISS CKD3 - Cr baseline appears to be 0.9-1.1 - Cr appears to be at baseline Chronic venous insufficiency Obesity - BMI of 32 - Complicating medical care GI prophylaxis - c/w Protonix DVT prophylaxis - c/w full anticoagulation with Eliquis Disposition: - Awaiting clinical improvement VS,Gregg, I+O VS, [place], I+O Laboratory Tests 06/27/20 05:10 Vital Signs Date Time Temp Pulse Resp B/P (MAP) Pulse Ox O2 Delivery O2 Flow Rate FiO2 06/27/20 08:27 78 146/71 06/27/20 08:00 96.7 20 97 Nasal Cannula 2.0 06/26/20 08:00 30 I&O- Last 24 Hours up to 6 AM 06/27/20 06:00 Intake Total 1060 ml Output Total 2605 ml Balance -1545 ml KIRAN KOROMA MD Jun 27, 2020 10:52
[2020-06-27 16:00] VITALS: BP 139/73
--- NOTE | 2020-06-27 19:42 | ECGEPIP ---
[facility] Test Date: 2020-06-26 Pat Name: CLAIR LR Department: Room: [place] [address] Gender: Female Senior Investment Manager: MARIPOSA : 1935 Requested By: Abhinav Orozco Order Number: [id number] Reading MD: Jair Chew Measurements Intervals [place] Rate: 101 P: 253 OR: 149 QRS: -33 QRSD: 92 T: 69 QT: 352 QTc: 457 Interpretive Statements Normal sinus rhythm with PACs and PVC Left axis deviation Nonspecific T wave abnormality No significant change when compared to prior tracing of 06/25/2020 Electronically Signed on 06-27-2020 19:42:02 EDT by Jair Chew
[2020-06-27 20:00] VITALS: BP 154/82
[2020-06-27] MEDS: ATORVASTATIN 20 MG TAB PO SCH (21:23)
[2020-06-28] VITALS: BP 130/58
[2020-06-28] MEDS: IPRATROPIUM 0.5MG/ALBUTEROL 2.5MG INH SOL UD 3ML (DUONEB) NEB SCH ×4 (02:22→20:00)
[2020-06-28 06:22] LABS: BASO % 0.1 % (0.0-1.0); HEMOGLOBIN 11.1 g/dl (12.0-15.5); LYMPH # 0.4 10^3/uL (1.5-5.0); LYMPH % 3.4 % (24.0-44.0); MEAN CORPUSCULAR HEMOGLOBIN 28.5 pg (27.0-33.0); MEAN CORPUSCULAR VOLUME 94.9 fl (80.0-96.0); MONO # 0.2 10^3/uL (0.0-0.8); MONO % 2.3 % (0.0-5.0); NEUTROPHILS # 9.9 10^3/uL (1.5-8.5); NEUTROPHILS % 93.6 % (36.0-66.0); PLATELET COUNT, AUTOMATED 194 10^3/uL (150-450); WHITE BLOOD COUNT 10.6 10^3/uL (4.0-10.0)
[2020-06-28 06:57] LABS: CALCIUM LEVEL 8.7 MG/DL (8.8-10.2); CREATININE FOR GFR 1.12 MG/DL (0.55-1.30); GLOMERULAR FILTRATION RATE 49.5 (>32); MAGNESIUM LEVEL 2.6 MG/DL (1.8-2.4); POTASSIUM SERUM 3.9 MEQ/L (3.5-5.1)
[2020-06-28] MEDS: BUDESONIDE 0.5 MG/2 ML INHALATION SUSPENSION NEB SCH ×2 (07:10→19:13)
[2020-06-28] MEDS: FORMOTEROL FUMARATE 20 MCG/2 ML INHALATION SOLUTION (PERFOROMIST) INH SCH ×2 (07:10→19:13)
[2020-06-28] MEDS: SPIRONOLACTONE 25 MG TAB PO SCH (09:00)
[2020-06-28] MEDS: TORSEMIDE 100 MG TAB PO SCH ×2 (09:00→12:28)
[2020-06-28] MEDS: MOXIFLOXACIN HCL 400 MG in IV 1 EA IV SCH (09:28)
[2020-06-28] MEDS: HumaLOG INSULIN (NovoLOG) PER UNIT SC SCH ×4 (09:28→21:00)
[2020-06-28] MEDS: predniSONE 20 MG TAB PO SCH (09:29)
[2020-06-28] MEDS: PANTOPRAZOLE 40MG VIAL (C9113 PER 1) IV SCH (09:30)
[2020-06-28] MEDS: guaiFENesin ER 600 MG TAB PO SCH ×2 (09:30→21:42)
[2020-06-28] MEDS: APIXABAN 5 MG TAB (ELIQUIS) PO SCH ×2 (09:30→21:41)
[2020-06-28] MEDS: POLYVINYL ALCOHOL OPHTH SOLN 15 ML(LIQUITEARS) OU SCH ×4 (09:30→21:42)
--- NOTE | 2020-06-28 11:26 | IPNPDOC ---
Text Note Date of Service The patient was seen on 06/28/20. NOTE Subjective: Patient is an 85-year-old female with a PMHx of Cor Pulmonale / Diastolic CHF (Grade 1) / Pulmonary HTN, COPD, Chronic hypoxic and hypercapnic respiratory failure (2L of Oxygen during day / Trilogy Ventilatory at night), A. fib (on Eliquis), NIDDM2, CKD3, Chronic venous insufficiency and Obesity who presented to the emergency room because of shortness of breath, hypoxia and lethargy. Patient's daughter had reported that she has been expressing a productive cough for last couple of days. On arrival to emergency room, patient was found to be in hypercarbic respiratory failure, required BiPAP ventilation. Discussion with daughter during admission about CODE STATUS, had indicated that she is still DNR and DNI. Patient's family did not want to pursue with comfort measures at that time. Upon evaluation of patient on 06/26, patient was oriented to person, place and time / president, and BiPAP ventilation was discontinued. Patient was seen and examined at the bedside. Currently patient appears to be comfortable, denies any chest pain, shortness of breath or palpitations. Patient has not progressed with physical therapy. Denies any nausea, vomiting, abdominal pain or diarrhea. Objective: Vitals (See below) General: Patient is fully awake, alert and oriented 3, sitting up in bed, appears to be comfortable and in no acute distress HEENT: NC, AT, this morning patient had her Trilogy ventilator facemask on CVS: +S1S2 Lungs: Fair air entry b/l, auscultation does not reveal any crackles, wheezing or rhonchi Abdomen: Soft, nondistended and nontender Extremities: 2+ pitting edema bilaterally still present bilaterally, - Calf tenderness Assessment and plan: s/p Acute metabolic encephalopathy - likely 2/2 acute on chronic hypercapnic respiratory failure - Currently, patient is fully alert, oriented 3/president - Again no focal neurologic deficits Acute on chronic hypercapnic respiratory failure - likely 2/2 acute COPD exacerbation / RUL pneumonia / Decompensated Diastolic CHF - Chronic hypoxic and hypercapnic respiratory failure (2L of Oxygen during day / Trilogy Ventilatory at night) - PCO2 was brought back down to baseline Acute COPD exacerbation - Patient was that her breathing is doing better - Physical reveals mild expiratory wheezing bilaterally - c/w inhaled therapy as ordered - Will start prednisone taper; s/p Solumedrol Right upper lobe pneumonia - possibly 2/2 CAP, possibly 2/2 aspiration pneumonia / pneumonitis? - Reports improvement of breathing - Hemodynamically stable and afebrile - Leukocytosis has continue to trend down - Respiratory panel 06/25: Negative - Blood cultures 06/25: No growth after 48 hours - Pro-calcitonin 0.08 - CXR 06/25: Right upper lobe pneumonia. - c/w Moxifloxacin; s/p Vancomycin and Zosyn (Antibiotic day #3) - Speech and swallow evaluation today; c/w modified diet based on their recommendations Acute on Chronic Diastolic CHF (Grade 1) / Pulmonary HTN / Cor Pulmonale - Clinically patient appears to be significantly volume overloaded - Strict ins and outs, daily weights, fluid restrictions - c/w Spironolactone - Will resume Torsemide; Will DC Furosemide IV A. fib - c/w rate control with Diltiazem - c/w full anticoagulation with Eliquis DLP - c/w Atorvastatin NIDDM2 - c/w ISS CKD3 - Cr baseline appears to be 0.9-1.1 - Cr appears to be at baseline Chronic venous insufficiency Obesity - BMI of 32 - Complicating medical care GI prophylaxis - c/w Protonix DVT prophylaxis - c/w full anticoagulation with Eliquis Disposition: - Awaiting clinical improvement VSGregg I+O VSGregg I+O Laboratory Tests 06/28/20 06:12 Vital Signs Date Time Temp Pulse Resp B/P (MAP) Pulse Ox O2 Delivery O2 Flow Rate FiO2 06/28/20 09:29 92 108/69 06/28/20 00:00 98.7 18 96 NIPPV (BIPAP/CPAP) 2.0 06/26/20 08:00 30 I&O- Last 24 Hours up to 6 AM 06/28/20 06:00 Intake Total 640 ml Output Total 1350 ml Balance -710 ml KIRAN KOROMA MD Jun 28, 2020 11:26
[2020-06-28 14:00] VITALS: BP 124/69
[2020-06-28] MEDS: ATORVASTATIN 20 MG TAB PO SCH (21:41)
[2020-06-28 22:00] VITALS: BP 137/70
[2020-06-29] MEDS: IPRATROPIUM 0.5MG/ALBUTEROL 2.5MG INH SOL UD 3ML (DUONEB) NEB SCH ×4 (00:14→19:58)
[2020-06-29] MEDS: MOXIFLOXACIN 400 MG TAB PO SCH (05:47)
[2020-06-29 05:56] LABS: BASO % 0.1 % (0.0-1.0); HEMATOCRIT 37.5 % (36.0-47.0); HEMOGLOBIN 11.3 g/dl (12.0-15.5); LYMPH # 0.9 10^3/uL (1.5-5.0); LYMPH % 7.6 % (24.0-44.0); MEAN CORPUSCULAR HEMOGLOBIN 28.7 pg (27.0-33.0); MEAN CORPUSCULAR HGB CONC 30.1 g/dl (32.0-36.5); MEAN CORPUSCULAR VOLUME 95.2 fl (80.0-96.0); MONO # 0.8 10^3/uL (0.0-0.8); MONO % 6.8 % (0.0-5.0); NEUTROPHILS # 10.4 10^3/uL (1.5-8.5); NEUTROPHILS % 84.9 % (36.0-66.0); PLATELET COUNT, AUTOMATED 184 10^3/uL (150-450); RED BLOOD COUNT 3.94 10^6/uL (4.00-5.40); WHITE BLOOD COUNT 12.3 10^3/uL (4.0-10.0)
[2020-06-29 06:00] VITALS: BP 139/69
[2020-06-29 06:16] LABS: CALCIUM LEVEL 8.5 MG/DL (8.8-10.2); CREATININE FOR GFR 1.12 MG/DL (0.55-1.30); GLOMERULAR FILTRATION RATE 49.5 (>32); MAGNESIUM LEVEL 2.5 MG/DL (1.8-2.4); POTASSIUM SERUM 3.7 MEQ/L (3.5-5.1)
[2020-06-29] MEDS: FORMOTEROL FUMARATE 20 MCG/2 ML INHALATION SOLUTION (PERFOROMIST) INH SCH ×2 (07:21→19:58)
[2020-06-29] MEDS: BUDESONIDE 0.5 MG/2 ML INHALATION SUSPENSION NEB SCH ×2 (07:21→19:58)
[2020-06-29] MEDS: TORSEMIDE 100 MG TAB PO SCH (08:23)
[2020-06-29] MEDS: APIXABAN 5 MG TAB (ELIQUIS) PO SCH ×2 (08:23→21:56)
[2020-06-29] MEDS: PANTOPRAZOLE 40MG VIAL (C9113 PER 1) IV SCH (08:23)
[2020-06-29] MEDS: HumaLOG INSULIN (NovoLOG) PER UNIT SC SCH ×4 (08:23→21:00)
[2020-06-29] MEDS: guaiFENesin ER 600 MG TAB PO SCH ×2 (08:23→21:56)
[2020-06-29] MEDS: SPIRONOLACTONE 25 MG TAB PO SCH (08:23)
[2020-06-29] MEDS: predniSONE 20 MG TAB PO SCH (08:23)
[2020-06-29] MEDS: POLYVINYL ALCOHOL OPHTH SOLN 15 ML(LIQUITEARS) OU SCH ×4 (08:24→21:57)
--- NOTE | 2020-06-29 10:42 | IPNPDOC ---
Date Seen The patient was seen on 06/29/20. Progress Note Hospitalist Attending Physician Dr. Cordero's Progress Note 06/29/20 dictation VS, I&O, 24H, Fishbone Vital Signs/I&O Vital Signs Date Time Temp Pulse Resp B/P (MAP) Pulse Ox O2 Delivery O2 Flow Rate FiO2 06/29/20 08:23 71 139/69 06/29/20 06:00 97.5 19 94 Nasal Cannula 2.0 06/26/20 08:00 30 I&O- Last 24 Hours up to 6 AM 06/29/20 06:00 Intake Total 1480 ml Output Total 0 ml Balance 1480 ml Laboratory Data 24H LABS Laboratory Tests 2 06/28/20 12:18: Bedside Glucose (Misc Panel) 143H 06/28/20 17:02: Bedside Glucose (Misc Panel) 182H 06/28/20 20:56: Bedside Glucose (Misc Panel) 193H 06/29/20 05:19: Immature Granulocyte % (Auto) 0.6, Neutrophils (%) (Auto) 84.9H, Lymphocytes (%) (Auto) 7.6L, Monocytes (%) (Auto) 6.8H, Eosinophils (%) (Auto) 0.0, Basophils (%) (Auto) 0.1, Neutrophils # (Auto) 10.4H, Lymphocytes # (Auto) 0.9L, Monocytes # (Auto) 0.8, Eosinophils # (Auto) 0.0, Basophils # (Auto) 0.0, Nucleated Red Blood Cells % (auto) 0.0 06/29/20 05:20: Anion Gap 5L, Glomerular Filtration Rate 49.5, Calcium Level 8.5L, Magnesium Level 2.5H CBC/BMP Laboratory Tests 06/29/20 05:19 06/29/20 05:20 Microbiology Microbiology 06/25/20 Respiratory Virus Panel (PCR) ([facility]) - Final, Complete 06/25/20 Blood Culture - Preliminary, Resulted No Growth after 72 hours. All specime... 06/25/20 Blood Culture - Preliminary, Resulted No Growth after 72 hours. All specime... AZEEM CORDERO MD Jun 29, 2020 10:42
[2020-06-29 13:11] LABS: BODY FLUID CULTURE Not indicated. (.); LEGIONELLA ANTIGEN URINE Negative (Negative); ORGANISM ID Not indicated. (.); SPECIMEN SOURCE Urine (.); URINE STREP PNEUMONIAE ANTIGEN Negative (Negative)
[2020-06-29 14:00] VITALS: BP 136/69
[2020-06-29] MEDS: ATORVASTATIN 20 MG TAB PO SCH (21:56)
[2020-06-29 22:00] VITALS: BP 124/81
[2020-06-30] MEDS: IPRATROPIUM 0.5MG/ALBUTEROL 2.5MG INH SOL UD 3ML (DUONEB) NEB SCH ×4 (01:31→20:00)
[2020-06-30 06:00] VITALS: BP 147/67
[2020-06-30] MEDS: MOXIFLOXACIN 400 MG TAB PO SCH (06:12)
[2020-06-30 07:24] LABS: CALCIUM LEVEL 7.9 MG/DL (8.8-10.2); CREATININE FOR GFR 1.01 MG/DL (0.55-1.30); GLOMERULAR FILTRATION RATE 55.7 (>32); MAGNESIUM LEVEL 2.4 MG/DL (1.8-2.4); POTASSIUM SERUM 4.2 MEQ/L (3.5-5.1)
[2020-06-30] MEDS: HumaLOG INSULIN (NovoLOG) PER UNIT SC SCH ×4 (07:30→21:00)
[2020-06-30 08:30] VITALS: O2SAT 95
[2020-06-30] MEDS: BUDESONIDE 0.5 MG/2 ML INHALATION SUSPENSION NEB SCH ×2 (08:32→20:08)
[2020-06-30] MEDS: FORMOTEROL FUMARATE 20 MCG/2 ML INHALATION SOLUTION (PERFOROMIST) INH SCH ×2 (08:32→20:07)
[2020-06-30 08:56] LABS: BASO % 0.1 % (0.0-1.0); EOS % 0.2 % (0.0-3.0); HEMATOCRIT 39.3 % (36.0-47.0); HEMOGLOBIN 11.6 g/dl (12.0-15.5); LYMPH # 1.5 10^3/uL (1.5-5.0); LYMPH % 12.2 % (24.0-44.0); MEAN CORPUSCULAR HEMOGLOBIN 28.2 pg (27.0-33.0); MEAN CORPUSCULAR HGB CONC 29.5 g/dl (32.0-36.5); MEAN CORPUSCULAR VOLUME 95.6 fl (80.0-96.0); MONO # 0.8 10^3/uL (0.0-0.8); MONO % 6.4 % (0.0-5.0); NEUTROPHILS # 9.7 10^3/uL (1.5-8.5); NEUTROPHILS % 80.4 % (36.0-66.0); PLATELET COUNT, AUTOMATED 191 10^3/uL (150-450); RED BLOOD COUNT 4.11 10^6/uL (4.00-5.40)
[2020-06-30] MEDS: PANTOPRAZOLE 40MG VIAL (C9113 PER 1) IV SCH (09:19)
[2020-06-30] MEDS: POLYVINYL ALCOHOL OPHTH SOLN 15 ML(LIQUITEARS) OU SCH ×4 (09:19→22:27)
[2020-06-30] MEDS: APIXABAN 5 MG TAB (ELIQUIS) PO SCH ×2 (09:19→22:26)
[2020-06-30] MEDS: predniSONE 20 MG TAB PO SCH (09:19)
[2020-06-30] MEDS: TORSEMIDE 100 MG TAB PO SCH (09:20)
[2020-06-30] MEDS: SPIRONOLACTONE 25 MG TAB PO SCH (09:20)
[2020-06-30] MEDS: guaiFENesin ER 600 MG TAB PO SCH ×2 (09:20→22:27)
[2020-06-30 14:00] VITALS: BP 113/64
[2020-06-30 22:00] VITALS: BP 111/66
[2020-06-30] MEDS: ATORVASTATIN 20 MG TAB PO SCH (22:26)
[2020-07-01] MEDS: IPRATROPIUM 0.5MG/ALBUTEROL 2.5MG INH SOL UD 3ML (DUONEB) NEB SCH ×4 (02:00→20:11)
[2020-07-01 05:56] LABS: BASO % 0.1 % (0.0-1.0); EOS % 0.1 % (0.0-3.0); HEMOGLOBIN 10.8 g/dl (12.0-15.5); LYMPH # 1.2 10^3/uL (1.5-5.0); LYMPH % 10.7 % (24.0-44.0); MEAN CORPUSCULAR HEMOGLOBIN 27.8 pg (27.0-33.0); MEAN CORPUSCULAR HGB CONC 29.2 g/dl (32.0-36.5); MEAN CORPUSCULAR VOLUME 95.4 fl (80.0-96.0); MONO # 0.8 10^3/uL (0.0-0.8); MONO % 6.7 % (0.0-5.0); NEUTROPHILS # 9.2 10^3/uL (1.5-8.5); NEUTROPHILS % 81.4 % (36.0-66.0); PLATELET COUNT, AUTOMATED 180 10^3/uL (150-450); RED BLOOD COUNT 3.88 10^6/uL (4.00-5.40); WHITE BLOOD COUNT 11.3 10^3/uL (4.0-10.0)
[2020-07-01 06:00] VITALS: BP 119/72
[2020-07-01] MEDS: MOXIFLOXACIN 400 MG TAB PO SCH (06:37)
[2020-07-01 06:55] LABS: BLOOD UREA NITROGEN 24 MG/DL (7-18); CALCIUM LEVEL 8.4 MG/DL (8.8-10.2); CARBON DIOXIDE LEVEL 48 MEQ/L (21-32); CHLORIDE LEVEL 97 MEQ/L (98-107); CREATININE FOR GFR 1.17 MG/DL (0.55-1.30); GLUCOSE, FASTING 141 MG/DL (70-100); MAGNESIUM LEVEL 2.4 MG/DL (1.8-2.4); POTASSIUM SERUM 3.5 MEQ/L (3.5-5.1); SODIUM LEVEL 144 MEQ/L (136-145)
[2020-07-01] MEDS: BUDESONIDE 0.5 MG/2 ML INHALATION SUSPENSION NEB SCH ×2 (07:56→20:11)
[2020-07-01] MEDS: FORMOTEROL FUMARATE 20 MCG/2 ML INHALATION SOLUTION (PERFOROMIST) INH SCH ×2 (07:56→20:11)
[2020-07-01] MEDS: PANTOPRAZOLE 40MG VIAL (C9113 PER 1) IV SCH (08:12)
[2020-07-01] MEDS: HumaLOG INSULIN (NovoLOG) PER UNIT SC SCH ×4 (08:12→21:00)
[2020-07-01] MEDS: TORSEMIDE 100 MG TAB PO SCH (08:12)
[2020-07-01] MEDS: guaiFENesin ER 600 MG TAB PO SCH ×2 (08:13→21:37)
[2020-07-01] MEDS: predniSONE 20 MG TAB PO SCH (08:13)
[2020-07-01] MEDS: SPIRONOLACTONE 25 MG TAB PO SCH (08:13)
[2020-07-01] MEDS: APIXABAN 5 MG TAB (ELIQUIS) PO SCH ×2 (08:13→21:37)
[2020-07-01] MEDS: POLYVINYL ALCOHOL OPHTH SOLN 15 ML(LIQUITEARS) OU SCH ×4 (08:13→21:38)
[2020-07-01 14:00] VITALS: BP 116/50
--- NOTE | 2020-07-01 14:34 | IPN ---
DATE: 06/29/2020 SUBJECTIVE: Patient seen and examined at the bedside. Chart has been reviewed. Patient denies any shortness of breath, chest pain, pressure, or tightness. No dizziness or lightheadedness. OBJECTIVE: PHYSICAL EXAMINATION: VITAL SIGNS: Temperature 97.5, pulse 71, respiratory rate 19, blood pressure 139/69, 94% on 2 liters nasal cannula. GENERAL: Patient is asleep, easily arousable. No jugular venous distention (JVD). No thyromegaly. No cervical lymphadenopathy. Poor dentition. LUNGS: Diminished. No wheezing, rales, or rhonchi. HEART: S1, S2, sinus rhythm. No murmurs, rubs, or gallops. ABDOMEN: Soft, nontender, nondistended. Positive bowel sounds times four quadrants. No rebound or guarding. No hepatosplenomegaly. No fluid wave. EXTREMITIES: Pitting edema 2+. HOSPITAL MEDICATIONS: Prednisone, Avelox, torsemide, prednisone taper, Humalog insulin sliding scale, Lipitor, Pulmicort, Fleet enema as needed, Protonix, diltiazem, Mucinex, artificial tears, Perforomist, Eliquis, spironolactone, Aqua Tears, hypoglycemic protocol, Tylenol as needed, milk of magnesium 30 mL as needed, Mylanta, Proventil. LABORATORY DATA: White count 12.3, hemoglobin 11, hematocrit 37, platelet count 184. Sodium 143, potassium 3.7, chloride 94, bicarbonate 44, BUN 31, creatinine 1.12, glucose 123, magnesium 2.5, calcium 8.5. IMAGING STUDY: June 25 chest x-ray: Right upper lobe pneumonia. ASSESSMENT: This is an 85-year-old female admitted on 06/25/2020 with complaint of shortness of breath, history of diastolic heart failure, grade 1, cor pulmonale, pulmonary hypertension, chronic obstructive pulmonary disease (COPD), chronic hypoxic and hypercapnic respiratory failure, on 2 liters of oxygen, on Trilogy ventilatory at night, atrial fibrillation on chronic atrial fibrillation, on Eliquis, [id number] type 2 diabetes, chronic kidney disease (CKD), stage III, and chronic venous insufficiency, obesity, body mass index (BMI) of 32.7, admitted for acute encephalopathy secondary to hypercapnia, COPD exacerbation, pneumonia, and diastolic heart failure exacerbation. CURRENT ISSUES: 1. Acute metabolic encephalopathy due to acute on chronic hypercapnic respiratory failure, resolved. 2. COPD exacerbation, improving. 3. Right upper lobe pneumonia, community acquired. 4. Acute COPD exacerbation, improving. 5. Acute on chronic diastolic grade 1 preserved systolic function with pulmonary hypertension and cor pulmonale, resolved. 6. Chronic atrial fibrillation, rate controlled, on chronic Eliquis. 7. Dyslipidemia. 8. Lpt-Ugtbnkw-onrzhbyzu diabetes. 9. Chronic kidney disease, stage III. 10. Chronic venous insufficiency. 11. Obesity, body mass index (BMI) of 32. PLAN: Patient is currently on tapering dose of prednisone and doing well without any overt wheezing, currently at baseline oxygen level. Her chronic hypercapnia is back to baseline. Patient is maintaining her oxygen level well on prednisone taper and Avelox. Patient has been diuresed and currently at baseline creatinine. Resume back on her home dose of torsemide, spironolactone. Appears to be euvolemic. She is on chronic inhalers and resume back on her home dose of Lipitor. Awaiting physical therapy (PT) clearance prior to discharge home. Glucose levels had episodes of steroid-induced hyperglycemia, currently ranging from 143-218. Will continue to monitor and adjust accordingly but will most likely be satisfactory once the steroid taper has been completed and would not need adjustment of medications. DISPOSITION Await PT clearance prior to discharge home. Continue with present management. Appears to be doing well with this. [facility]
--- NOTE | 2020-07-01 14:36 | IPN ---
DATE: 06/30/2020 SUBJECTIVE: Patient seen and examined at the bedside. Chart has been reviewed. Patient is still too weak to be discharged. Currently not safe for hospital discharge per physical therapy. She continues to be dyspneic on exertion and at rest but with clear lungs. Currently on tapered dose of prednisone, on Avelox for pneumonia and resumed back on her home dose of Demadex and spironolactone. OBJECTIVE: PHYSICAL EXAMINATION: VITAL SIGNS: Temperature 97.3, pulse 78, respiratory rate 18, blood pressure 147/67, 99% on 3 liters nasal cannula. GENERAL: Awake, alert, oriented to person, place, and time. Positive use of respiratory accessory muscles. Pursed lips. No tracheal deviation. Mild jugular venous distention (JVD). No thyromegaly. LUNGS: Diminished. Clear in the upper lobes. Some crackles at the bases. HEART: S1, S2. ABDOMEN: Obese, soft, nontender, nondistended. EXTREMITIES: Positive 1+ pitting edema. LABORATORY DATA: On June 30, white count 12, hemoglobin 11.6, hematocrit 39, platelet count 191. Sodium 141, potassium 4.2, chloride 95, bicarbonate 42, BUN 27, creatinine 1, glucose 89. Chest x-ray June 25: Right upper lobe pneumonia. ASSESSMENT: This is an 85-year-old female with the following issues: 1. Acute on chronic hypoxic hypercapnic respiratory failure. 2. Acute chronic obstructive pulmonary disease (COPD) exacerbation. 3. Community-acquired right upper lobe pneumonia. 4. Congestive heart failure, acute on chronic, decompensated congestive heart failure (CHF) exacerbation. Diastolic dysfunction, preserved systolic function. 5. Chronic atrial fibrillation. 6. Dyslipidemia. 7. Type 2 diabetes. 8. Chronic kidney disease, stage III. 9. Chronic venous insufficiency. 10. Obesity, body mass index (BMI) of 32. 11. Acute hypercapnic respiratory failure with acute metabolic encephalopathy, resolved. PLAN: Patient is currently on tapering dose of prednisone. Resume back on her torsemide and spironolactone. Avelox for her pneumonia. Currently rate controlled with the diltiazem. She is awaiting physical therapy (PT) home clearance prior to discharge home, otherwise medically stable. Will continue with all present management. Continue with strict intake and output and daily weights, fluid restriction. Monitor patient's electrolytes and supplement as needed. MTDD
[2020-07-01 20:00] VITALS: BP 162/56
[2020-07-01] MEDS: ATORVASTATIN 20 MG TAB PO SCH (21:38)
[2020-07-01] MEDS: ACETAMINOPHEN TAB 650MG DOSE (2X325MG) PO PRN (21:40)
[2020-07-02] MEDS: IPRATROPIUM 0.5MG/ALBUTEROL 2.5MG INH SOL UD 3ML (DUONEB) NEB SCH ×4 (02:00→19:14)
[2020-07-02] MEDS: MOXIFLOXACIN 400 MG TAB PO SCH (06:33)
[2020-07-02 06:35] VITALS: BP 147/57
[2020-07-02] MEDS: ACETAMINOPHEN TAB 650MG DOSE (2X325MG) PO PRN (06:35)
[2020-07-02] MEDS: HumaLOG INSULIN (NovoLOG) PER UNIT SC SCH ×4 (07:30→20:48)
[2020-07-02] MEDS: FORMOTEROL FUMARATE 20 MCG/2 ML INHALATION SOLUTION (PERFOROMIST) INH SCH ×2 (07:32→19:14)
[2020-07-02] MEDS: BUDESONIDE 0.5 MG/2 ML INHALATION SUSPENSION NEB SCH ×2 (07:32→19:14)
[2020-07-02 08:09] LABS: BASO % 0.1 % (0.0-1.0); EOS # 0.1 10^3/uL (0.0-0.5); EOS % 0.9 % (0.0-3.0); HEMATOCRIT 37.8 % (36.0-47.0); HEMOGLOBIN 11.3 g/dl (12.0-15.5); LYMPH # 1.7 10^3/uL (1.5-5.0); LYMPH % 11.8 % (24.0-44.0); MEAN CORPUSCULAR HEMOGLOBIN 28.3 pg (27.0-33.0); MEAN CORPUSCULAR HGB CONC 29.9 g/dl (32.0-36.5); MEAN CORPUSCULAR VOLUME 94.7 fl (80.0-96.0); MONO # 0.7 10^3/uL (0.0-0.8); MONO % 5.2 % (0.0-5.0); NEUTROPHILS # 11.4 10^3/uL (1.5-8.5); NEUTROPHILS % 81.3 % (36.0-66.0); PLATELET COUNT, AUTOMATED 183 10^3/uL (150-450); RED BLOOD COUNT 3.99 10^6/uL (4.00-5.40)
[2020-07-02 08:25] LABS: CALCIUM LEVEL 8.7 MG/DL (8.8-10.2); CREATININE FOR GFR 1.22 MG/DL (0.55-1.30); GLOMERULAR FILTRATION RATE 44.8 (>32); MAGNESIUM LEVEL 2.5 MG/DL (1.8-2.4); POTASSIUM SERUM 3.6 MEQ/L (3.5-5.1)
--- NOTE | 2020-07-02 09:17 | IPN ---
DATE: 07/01/2020 SUBJECTIVE: Patient seen and examined at the bedside. Chart has been reviewed. Patient continues to have dyspnea on exertion, which is normal for her. No recurrent episodes of fever, chills, cough, shortness of breath aside from her baseline. She still has dyspnea on exertion, requiring 2-person assistance with going from supine to sitting position. Patient would prefer to be discharged home, and per the daughter is able to have 24/7 care with one person; however, during the hospital stay she is requiring about two people to help her with her activities of daily living (ADLs). She denies any chest pain, pressure, or tightness, palpitations, lightheadedness, or dizziness currently. No other issues per nursing. No syncopal episodes. Patient has had difficulty with having bowel movements, improved now. OBJECTIVE: PHYSICAL EXAMINATION: VITAL SIGNS: Temperature 97.5, pulse 98, respiratory rate 17, blood pressure 119/72, 94% on 2 liters nasal cannula. GENERAL: Patient appears her stated age. She does have mild conversational dyspnea with pursed lips as well as six to seven-word dyspnea, which she says is at baseline. No jugular venous distention (JVD). No thyromegaly. LUNGS: Diminished. Clear to auscultation. Air entry is equal. HEART: S1, S2, sinus rhythm. No murmurs, rubs, or gallops. ABDOMEN: Obese, soft, nontender, nondistended. EXTREMITIES: Chronic 2+ edema. Patient has chronic ecchymosis, bilateral upper extremities and lower extremities. LABORATORY DATA: White count 11.3, hemoglobin 10, hematocrit 37, platelet count 180. Sodium 144, potassium 3.5, chloride 97, bicarbonate 48, BUN 24, creatinine 1.17, glucose 141. Respiratory panel and COVID negative. Blood cultures June 25 are no growth after 5 days. IMAGING STUDIES: On 06/25/2020: Patient has a right upper lobe pneumonia. ASSESSMENT AND PLAN: This is an 85-year-old female admitted on 06/25/2020 with complaints of worsening shortness of breath, oxygen saturation dropping down to 70s and CO2 to 90s. Patient was admitted for acute on chronic hypercapnic respiratory failure, found to have a right upper lobe pneumonia. IMPRESSION: 1. Acute metabolic encephalopathy secondary to hypercapnic respiratory failure, acute on chronic, with elevated CO2 level requiring bilevel positive airway pressure (BiPAP) therapy in the intensive care unit (ICU). Patient has since improved. Back to her baseline mentation after the CO2 narcosis has subsided. CT of the head was negative for acute intracranial abnormality. 2. Chronic obstructive pulmonary disease (COPD) exacerbation, resolved, secondary to right upper lobe pneumonia, treated with intravenous (IV) Solu- Medrol, supplemental oxygen, nebulizer treatment, and antibiotics. 3. Sepsis secondary to right upper lobe pneumonia. Patient has completed antibiotics, initially vancomycin and Zosyn, to cover for atypical/typical antibiotics. Patient's white count has decreased. She has remained afebrile but still with shortness of breath. 4. Cor pulmonale, congestive heart failure with preserved ejection fraction with moderate pulmonary hypertension. Patient had been diuresed. Currently back on her baseline torsemide 100 mg daily. Will recheck a chest x-ray but will continue all other diuretics. 5. Chronic atrial fibrillation, on anticoagulation with Eliquis. Appears to be rate controlled on her home dose of diltiazem 60 mg every 12 hours. 6. Dyslipidemia, on chronic Lipitor 40 every night. No complaints of myopathy or muscle pains and aches. 7. COPD, currently compensated on prednisone taper. DISPOSITION: Patient is still requiring 2-person assistance. Unable to be discharged home. Patient's daughter is refusing acute rehabilitation placement, but currently patient is unable to ambulate with only 1-person assistance. [facility]
[2020-07-02] MEDS: guaiFENesin ER 600 MG TAB PO SCH ×2 (09:32→20:49)
[2020-07-02] MEDS: PANTOPRAZOLE 40MG VIAL (C9113 PER 1) IV SCH (09:32)
[2020-07-02] MEDS: TORSEMIDE 100 MG TAB PO SCH (09:33)
[2020-07-02] MEDS: SPIRONOLACTONE 25 MG TAB PO SCH (09:34)
[2020-07-02] MEDS: APIXABAN 5 MG TAB (ELIQUIS) PO SCH ×2 (09:35→20:49)
[2020-07-02] MEDS: predniSONE 20 MG TAB PO SCH (09:35)
[2020-07-02] MEDS: POLYVINYL ALCOHOL OPHTH SOLN 15 ML(LIQUITEARS) OU SCH ×4 (09:45→20:49)
--- NOTE | 2020-07-02 11:14 | IPNPDOC ---
Date Seen The patient was seen on 07/02/20. Progress Note SUBJECTIVE: Patient seen and examined at the bedside. Chart has been reviewed. At baseline dyspnea, and says her breathing is "okay." c/o left alfonso bruising and pain . ice applied and right hip pain 5/10 pain scale given pain meds. still requiring 1-2 person assistance with ambulation. OBJECTIVE: PHYSICAL EXAMINATION: VITAL SIGNSsee below GENERAL: Patient appears her stated age. No jugular venous distention (JVD). No thyromegaly. LUNGS: Diminished. Clear to auscultation. Air entry is equal. HEART: S1, S2, sinus rhythm. No murmurs, rubs, or gallops. ABDOMEN: Obese, soft, nontender, nondistended. EXTREMITIES: Chronic 2+ edema. Patient has chronic ecchymosis, bilateral upper extremities and lower extremities. LABORATORY DATA: see below MICROBIOLOGY Respiratory panel and COVID negative. Blood cultures June 25 are no growth after 5 days. IMAGING STUDIES: On 06/25/2020: Patient has a right upper lobe pneumonia. ASSESSMENT AND PLAN: This is an 85-year-old female admitted on 06/25/2020 with complaints of worsening shortness of breath, oxygen saturation dropping down to 70s and CO2 to90s. Patient was admitted for acute on chronic hypercapnic respiratory failure, found to have a right upper lobe pneumonia. 1. Acute metabolic encephalopathy secondary to hypercapnic respiratory failure, acute on chronic, with elevated CO2 level requiring bilevel positive airway pr essure (BiPAP) therapy in the intensive care unit (ICU), RESOLVED 2. Chronic obstructive pulmonary disease (COPD) exacerbation, resolved 3. Sepsis secondary to right upper lobe pneumonia. 4. Cor pulmonale, congestive heart failure with preserved ejection fraction withmoderate pulmonary hypertension, RESOLVED 5. Chronic atrial fibrillation, on anticoagulation with Eliquis. 6. Dyslipidemia 7. Debility/Gait Instability Plan: pt is physically unstable to be cleared by physical therapy and requiring 2-person assistance with her ADLS. Pt is medically stable for discharge, and compliant with both Acapella device and incentive spirometry at the bedside. She is resumed on her home medications. ARU screen. Discharge to Acute Rehab if accepted. VS, I&O, 24H, Fishbone Vital Signs/I&O Vital Signs Date Time Temp Pulse Resp B/P (MAP) Pulse Ox O2 Delivery O2 Flow Rate FiO2 10/2/20 09:34 77 147/57 07/02/20 09:00 2.0 07/02/20 06:35 98.1 18 96 Nasal Cannula 06/26/20 08:00 30 I&O- Last 24 Hours up to 6 AM 07/02/20 06:00 Intake Total 960 ml Output Total 0 ml Balance 960 ml Laboratory Data 24H LABS Laboratory Tests 2 07/01/20 16:13: Bedside Glucose (Misc Panel) 247H 07/01/20 20:53: Bedside Glucose (Misc Panel) 112H 07/02/20 06:36: Immature Granulocyte % (Auto) 0.7, Neutrophils (%) (Auto) 81.3H, Lymphocytes (%) (Auto) 11.8L, Monocytes (%) (Auto) 5.2H, Eosinophils (%) (Auto) 0.9, Basophils (%) (Auto) 0.1, Neutrophils # (Auto) 11.4H, Lymphocytes # (Auto) 1.7, Monocytes # (Auto) 0.7, Eosinophils # (Auto) 0.1, Basophils # (Auto) 0.0, Nucleated Red Blood Cells % (auto) 0.0, Anion Gap 2L, Glomerular Filtration Rate 44.8, Calcium Level 8.7L, Magnesium Level 2.5H CBC/BMP Laboratory Tests 07/02/20 06:36 Microbiology Microbiology 06/25/20 Respiratory Virus Panel (PCR) ([facility]) - Final, Complete 06/25/20 Blood Culture - Final, Complete NO GROWTH AFTER 5 DAYS 06/25/20 Blood Culture - Final, Complete NO GROWTH AFTER 5 DAYS AZEEM QUISPE MD Jul 02, 2020 11:10
[2020-07-02 14:00] VITALS: BP 129/55
--- NOTE | 2020-07-02 18:05 | REPVR ---
PROCEDURE INFORMATION: Exam: XR Right Hip with Pelvis when Performed Exam date and time: 07/02/2020 5:53 PM Age: 85 years old Clinical indication: Pain and injury or trauma; Fall; Sprain or strain; Hip pain; Right hip; Additional info: Fall C/O right hip pain TECHNIQUE: Imaging protocol: XR Right hip with pelvis when performed. Views: 2 or 3 views. COMPARISON: CR HIP COMPLETE (AP/LAT) 11/06/2017 1:48 PM FINDINGS: Bones/joints: Unremarkable. No acute fracture. Soft tissues: Unremarkable. Vasculature: Atherosclerotic changes in the iliac and femoral arteries. IMPRESSION: No acute findings. Electronically signed by: Sanya Saucedo On 07/02/2020 18:05:10 PM
--- NOTE | 2020-07-02 18:06 | REPVR ---
PROCEDURE INFORMATION: Exam: XR Left Tibia and Fibula Exam date and time: 07/02/2020 5:53 PM Age: 85 years old Clinical indication: Pain and injury or trauma; Fall; Sprain or strain; Lower leg; Left; Additional info: Left leg R/O fracture S/P fall TECHNIQUE: Imaging protocol: XR Left tibia and fibula. Views: 2 views. COMPARISON: No relevant prior studies available. FINDINGS: Bones/joints: Osteoporosis. Soft tissues: Normal. Vasculature: Atherosclerotic changes in the femoropopliteal and infrapopliteal arteries. IMPRESSION: No acute findings. Electronically signed by: Sanya Saucedo On 07/02/2020 18:06:10 PM
--- NOTE | 2020-07-02 18:27 | REPVR ---
PROCEDURE INFORMATION: Exam: US Left Non-Vascular Joint or Other Extremity Structure, Limited Lower Extremity Exam date and time: 07/02/2020 6:11 PM Age: 85 years old Clinical indication: Injury or trauma; Fall; Swelling (edema); Lower leg; Left; Injury date: 07/01/20; Injury details: Fell while transporting to chair; Additional info: Left leg R/O abscess TECHNIQUE: Imaging protocol: Left US joint or other nonvascular extremity structure or structures. Real-time ultrasound with image documentation. Limited study. Exam focused on the lower extremity in the region of clinical interest. COMPARISON: No relevant prior studies available. FINDINGS: Soft tissues: Examination of the soft tissues anterior to the left tibia demonstrates a complex fluid collection measuring 6.8 x 2.2 x 7 cm consistent with a hematoma. Soft tissue edema demonstrated in the subcutaneous soft tissues. IMPRESSION: Examination of the soft tissues anterior to the left tibia demonstrates a complex fluid collection measuring 6.8 x 2.2 x 7 cm consistent with a hematoma. Soft tissue edema demonstrated in the subcutaneous soft tissues. Electronically signed by: Sanya Saucedo On 07/02/2020 18:27:31 PM
[2020-07-02 19:38] VITALS: BP 114/53
[2020-07-02] MEDS: ATORVASTATIN 20 MG TAB PO SCH (20:49)
[2020-07-03] MEDS: IPRATROPIUM 0.5MG/ALBUTEROL 2.5MG INH SOL UD 3ML (DUONEB) NEB SCH ×4 (02:00→19:30)
[2020-07-03] MEDS: MOXIFLOXACIN 400 MG TAB PO SCH (05:21)
[2020-07-03 06:22] VITALS: BP 126/56
[2020-07-03] MEDS: FORMOTEROL FUMARATE 20 MCG/2 ML INHALATION SOLUTION (PERFOROMIST) INH SCH ×2 (07:05→19:30)
[2020-07-03] MEDS: BUDESONIDE 0.5 MG/2 ML INHALATION SUSPENSION NEB SCH ×2 (07:05→19:30)
[2020-07-03 07:16] LABS: BASO % 0.2 % (0.0-1.0); EOS # 0.1 10^3/uL (0.0-0.5); EOS % 0.4 % (0.0-3.0); HEMATOCRIT 33.4 % (36.0-47.0); HEMOGLOBIN 10.1 g/dl (12.0-15.5); LYMPH # 1.6 10^3/uL (1.5-5.0); LYMPH % 12.2 % (24.0-44.0); MEAN CORPUSCULAR HEMOGLOBIN 28.5 pg (27.0-33.0); MEAN CORPUSCULAR HGB CONC 30.2 g/dl (32.0-36.5); MEAN CORPUSCULAR VOLUME 94.1 fl (80.0-96.0); MONO # 0.8 10^3/uL (0.0-0.8); MONO % 6.1 % (0.0-5.0); NEUTROPHILS # 10.7 10^3/uL (1.5-8.5); NEUTROPHILS % 80.3 % (36.0-66.0); PLATELET COUNT, AUTOMATED 183 10^3/uL (150-450); RED BLOOD COUNT 3.55 10^6/uL (4.00-5.40); WHITE BLOOD COUNT 13.3 10^3/uL (4.0-10.0)
[2020-07-03] MEDS: HumaLOG INSULIN (NovoLOG) PER UNIT SC SCH ×4 (07:30→20:10)
[2020-07-03 07:37] LABS: BLOOD UREA NITROGEN 23 MG/DL (7-18); CALCIUM LEVEL 8.9 MG/DL (8.8-10.2); CARBON DIOXIDE LEVEL 44 MEQ/L (21-32); CHLORIDE LEVEL 96 MEQ/L (98-107); CREATININE FOR GFR 0.94 MG/DL (0.55-1.30); GLOMERULAR FILTRATION RATE > 60.0 (>32); GLUCOSE, FASTING 88 MG/DL (70-100); MAGNESIUM LEVEL 2.4 MG/DL (1.8-2.4); POTASSIUM SERUM 3.6 MEQ/L (3.5-5.1); SODIUM LEVEL 143 MEQ/L (136-145)
[2020-07-03] MEDS: predniSONE 20 MG TAB PO SCH (08:58)
[2020-07-03] MEDS: guaiFENesin ER 600 MG TAB PO SCH ×2 (08:58→20:08)
[2020-07-03] MEDS: SPIRONOLACTONE 25 MG TAB PO SCH (08:58)
[2020-07-03] MEDS: PANTOPRAZOLE 40MG VIAL (C9113 PER 1) IV SCH (08:58)
[2020-07-03] MEDS: APIXABAN 5 MG TAB (ELIQUIS) PO SCH (08:59)
[2020-07-03] MEDS: TORSEMIDE 100 MG TAB PO SCH (08:59)
[2020-07-03] MEDS: POLYVINYL ALCOHOL OPHTH SOLN 15 ML(LIQUITEARS) OU SCH ×4 (08:59→20:09)
--- NOTE | 2020-07-03 09:00 | IPNPDOC ---
Date Seen The patient was seen on 07/03/20. Progress Note SUBJECTIVE: Patient seen and examined at the bedside. Chart has been reviewed. . She complains of severe discomfort rated at 6 out of 10 of the left anterior alfonso status post her fall. She has a large hematoma documented on ultrasound of the left leg. No fracture noted on x-ray. Despite ice, elevation and pain medications. Patient is very uncomfortable at this time. She is waiting to have some breakfast prior to take pain medications. She is now requiring more assistance with her ADLs but is cooperative. She otherwise denies any chest pain, pressure, tightness, shortness of breath, lightheadedness, dizziness, cough, fever or chills. OBJECTIVE: PHYSICAL EXAMINATION: VITAL SIGNS see below GENERAL: Hard of hearing. No conversational dyspnea. No use of respiratory accessory muscles Patient appears her stated age. H EENT: No JVD . Dry mucous membranes. Dentition. No cervical lymphadenopathy. No thyromegaly LUNGS: Diminished. Clear to auscultation. Air entry is equal. . No adventitious breath sounds HEART: S1, S2, sinus rhythm. No murmurs, rubs, or gallops. Nondisplaced point of maximal impulse ABDOMEN: Obese, soft, nontender, nondistended. , No rebound, guarding, no hepatosplenomegaly. No abdominal bruit EXTREMITIES: Chronic 1+ edema. Patient has chronic ecchymosis, bilateral upper extremities and lower extremities. Left alfonso with hematoma, warm to touch, purplish black in color. There is Tl, pedis, posterior tibialis pulses are intact LABORATORY DATA: see below MICROBIOLOGY Respiratory panel and COVID negative. Blood cultures June 25 are no growth after 5 days. IMAGING STUDIES: On 06/25/2020: Patient has a right upper lobe pneumonia. ASSESSMENT AND PLAN: This is an 85-year-old female admitted on 06/25/2020 with complaints of worsening shortness of breath, oxygen saturation dropping down to 70s and CO2 to90s. Patient was admitted for acute on chronic hypercapnic respiratory failure, found to have a right upper lobe pneumonia. 1. Acute metabolic encephalopathy secondary to hypercapnic respiratory failure, acute on chronic, with elevated CO2 level requiring bilevel positive airway pressure (BiPAP) therapy in the intensive care unit (ICU), RESOLVED 2. Chronic obstructive pulmonary disease (COPD) exacerbation, resolved 3. Sepsis secondary to right upper lobe pneumonia, resolved 4. Cor pulmonale, congestive heart failure with preserved ejection fraction with moderate pulmonary hypertension, RESOLVED 5. Chronic atrial fibrillation, on anticoagulation with Eliquis. 6. Dyslipidemia 7. Debility/Gait Instability 8. Left lower extremity hematoma secondary to traumatic injury Plan: The patient's encephalopathy, COPD, pneumonia, congestive heart failure are all stable. She is currently having much more difficulty ambulating secondary to a traumatic injury to her left lower extremity with a significant hematoma over the left anterior alfonso limiting her ambulation secondary to pain. She hasn't been able to ambulate as much as she wants due to pain and debility. Despite working with physical therapy and taking advantage of her pain medications. She still continues to be limited with her ADLs and requiring 1-2 person assistance. She is continued on all her home medications with holding parameters, especially for her A. fib rate control medication as well as for blood pressure at this time weren't able to discharge her due to significant debility exacerbated by a new left anterior alfonso hematoma. We will need to monitor for any type of infection of the hematoma. Monitor for fevers and clinical improvement. Apply ice to the affected area and continue to elevate. Pain medications and bowel regimen. Await ARU acceptance. If patient is appropriate for half-way placement. She will be changed to [facility] status VS, I&O, 24H, Gregg Vital Signs/I&O Vital Signs Date Time Temp Pulse Resp B/P (MAP) Pulse Ox O2 Delivery O2 Flow Rate FiO2 07/03/20 06:22 97.4 69 18 126/56 (79) 99 Nasal Cannula 2.0 I&O- Last 24 Hours up to 6 AM 07/03/20 06:00 Intake Total 1160 ml Balance 1160 ml Laboratory Data 24H LABS Laboratory Tests 2 07/02/20 11:42: Bedside Glucose (Misc Panel) 200H 07/02/20 19:49: Bedside Glucose (Misc Panel) 267H 07/03/20 06:23: Immature Granulocyte % (Auto) 0.8, Neutrophils (%) (Auto) 80.3H, Lymphocytes (%) (Auto) 12.2L, Monocytes (%) (Auto) 6.1H, Eosinophils (%) (Auto) 0.4, Basophils (%) (Auto) 0.2, Neutrophils # (Auto) 10.7H, Lymphocytes # (Auto) 1.6, Monocytes # (Auto) 0.8, Eosinophils # (Auto) 0.1, Basophils # (Auto) 0.0, Nucleated Red Blood Cells % (auto) 0.0, Anion Gap 3L, Glomerular Filtration Rate > 60.0, Calcium Level 8.9, Magnesium Level 2.4 CBC/BMP Laboratory Tests 07/03/20 06:23 Microbiology Microbiology 06/25/20 Respiratory Virus Panel (PCR) ([facility]) - Final, Complete 06/25/20 Blood Culture - Final, Complete NO GROWTH AFTER 5 DAYS 06/25/20 Blood Culture - Final, Complete NO GROWTH AFTER 5 DAYS AZEEM QUISPE MD Jul 03, 2020 09:00
[2020-07-03 14:00] VITALS: BP 122/56
[2020-07-03 20:00] VITALS: BP 134/59
[2020-07-03] MEDS: ATORVASTATIN 20 MG TAB PO SCH (20:08)
[2020-07-03] MEDS: ACETAMINOPHEN TAB 650MG DOSE (2X325MG) PO PRN (20:09)
[2020-07-04] MEDS: IPRATROPIUM 0.5MG/ALBUTEROL 2.5MG INH SOL UD 3ML (DUONEB) NEB SCH ×4 (01:40→19:13)
[2020-07-04] MEDS: MOXIFLOXACIN 400 MG TAB PO SCH (05:29)
[2020-07-04 06:23] VITALS: BP 132/60
[2020-07-04 07:01] LABS: BASO % 0.2 % (0.0-1.0); EOS # 0.1 10^3/uL (0.0-0.5); EOS % 0.8 % (0.0-3.0); HEMATOCRIT 33.1 % (36.0-47.0); LYMPH # 1.7 10^3/uL (1.5-5.0); LYMPH % 14.5 % (24.0-44.0); MEAN CORPUSCULAR HEMOGLOBIN 28.3 pg (27.0-33.0); MEAN CORPUSCULAR HGB CONC 30.2 g/dl (32.0-36.5); MEAN CORPUSCULAR VOLUME 93.8 fl (80.0-96.0); MONO # 0.8 10^3/uL (0.0-0.8); MONO % 6.9 % (0.0-5.0); NEUTROPHILS # 8.8 10^3/uL (1.5-8.5); NEUTROPHILS % 76.9 % (36.0-66.0); PLATELET COUNT, AUTOMATED 182 10^3/uL (150-450); RED BLOOD COUNT 3.53 10^6/uL (4.00-5.40); WHITE BLOOD COUNT 11.4 10^3/uL (4.0-10.0)
[2020-07-04 07:14] LABS: CALCIUM LEVEL 8.5 MG/DL (8.8-10.2); CREATININE FOR GFR 1.08 MG/DL (0.55-1.30); GLOMERULAR FILTRATION RATE 51.6 (>32); MAGNESIUM LEVEL 2.3 MG/DL (1.8-2.4); POTASSIUM SERUM 3.4 MEQ/L (3.5-5.1)
[2020-07-04] MEDS: FORMOTEROL FUMARATE 20 MCG/2 ML INHALATION SOLUTION (PERFOROMIST) INH SCH ×2 (07:20→19:13)
[2020-07-04] MEDS: BUDESONIDE 0.5 MG/2 ML INHALATION SUSPENSION NEB SCH ×2 (07:20→19:13)
[2020-07-04] MEDS: HumaLOG INSULIN (NovoLOG) PER UNIT SC SCH ×4 (07:30→20:42)
[2020-07-04] MEDS: PANTOPRAZOLE 40MG VIAL (C9113 PER 1) IV SCH (09:09)
[2020-07-04] MEDS: MOM 30ML SUSPENSION UDC PO PRN (09:09)
[2020-07-04] MEDS: predniSONE 20 MG TAB PO SCH (09:09)
[2020-07-04] MEDS: TORSEMIDE 100 MG TAB PO SCH (09:10)
[2020-07-04] MEDS: SPIRONOLACTONE 25 MG TAB PO SCH (09:10)
[2020-07-04] MEDS: guaiFENesin ER 600 MG TAB PO SCH ×2 (09:10→20:42)
[2020-07-04] MEDS: POLYVINYL ALCOHOL OPHTH SOLN 15 ML(LIQUITEARS) OU SCH ×4 (09:11→20:42)
--- NOTE | 2020-07-04 09:26 | IPNPDOC ---
Date Seen The patient was seen on 07/04/20. Progress Note SUBJECTIVE: Patient seen and examined at the bedside. Chart has been reviewed. Patient's anticoagulation was held yesterday due to expanding hematoma of the left alfonso. Patient says that ice does not help and current medications are adequate. Says that the pain started 10 when she is moving to waiting for breakfast this morning but has no new complaints. Patient is cooperative, denies any shortness of breath, chest pain, pressure, tightness. Per sputum production. No dysuria, urgency or frequency. Patient requires assistance with ambulation and activities of daily living at this time. Patient is being evaluated by ARU. If accepted, and approved by insurance may be discharged to acute rehabilitation unit. No other acute medical issues. Once the hematoma has improved slightly. May resume her home dose of of anticoagulation. OBJECTIVE: PHYSICAL EXAMINATION: VITAL SIGNS see below GENERAL: Hard of hearing. No conversational dyspnea. No use of respiratory accessory muscles Patient appears her stated age. . No jaundice or icterus H EENT: Face is symmetric. Tongue is midline No JVD . Dry mucous membranes. Dentition. No cervical lymphadenopathy. No thyromegaly LUNGS: Diminished. Clear to auscultation. Air entry is equal. . No adventitious breath sounds HEART: S1, S2, sinus rhythm. No murmurs, rubs, or gallops. Nondisplaced point of maximal impulse ABDOMEN: Obese, soft, nontender, nondistended. , Positive bowel sounds 4 quadrants, No rebound, guarding, no hepatosplenomegaly. No abdominal bruit EXTREMITIES: Chronic 1+ edema. Patient has chronic ecchymosis, bilateral upper extremities and lower extremities. Left alfonso hematoma, warm to touch, purplish black in color. There is dorsalis LABORATORY DATA: see below MICROBIOLOGY Respiratory panel and COVID negative. Blood cultures June 25 are no growth after 5 days. IMAGING STUDIES: On 06/25/2020: Patient has a right upper lobe pneumonia. ASSESSMENT AND PLAN: This is an 85-year-old female admitted on 06/25/2020 with complaints of worsening shortness of breath, oxygen saturation dropping down to 70s and CO2 to90s. Patient was admitted for acute on chronic hypercapnic respiratory failure, found to have a right upper lobe pneumonia. 1. Acute metabolic encephalopathy secondary to hypercapnic respiratory failure, acute on chronic, with elevated CO2 level requiring bilevel positive airway pressure (BiPAP) therapy in the intensive care unit (ICU), RESOLVED 2. Chronic obstructive pulmonary disease (COPD) exacerbation, resolved 3. Sepsis secondary to right upper lobe pneumonia, resolved 4. Cor pulmonale, congestive heart failure with preserved ejection fraction with moderate pulmonary hypertension, RESOLVED 5. Chronic atrial fibrillation, on anticoagulation with Eliquis. 6. Dyslipidemia 7. Debility/Gait Instability 8. Left lower extremity hematoma secondary to traumatic injury Plan: Patient's oral anticoagulation has been held due to hematoma of the left alfonso. This has stabilized over the past 24 hours. Continue to elevate on a pillow as well as ice compresses. Patient's oral anticoagulation may be resumed tomorrow if stable. Patient denies any pain at the moment and says that her pain control is adequate. She does not want any of her pain medications changed were awaiting [facility] to accept her. Otherwise, no other acute medical issues. She may be transferred to [facility] once a bed is available If accepted. She is resumed on all her home medications VS, I&O, 24H, Gregg Vital Signs/I&O Vital Signs Date Time Temp Pulse Resp B/P (MAP) Pulse Ox O2 Delivery O2 Flow Rate FiO2 07/04/20 09:10 71 132/60 07/04/20 06:23 98.3 20 100 Nasal Cannula 2.0 I&O- Last 24 Hours up to 6 AM 07/04/20 06:00 Intake Total 1200 ml Balance 1200 ml Laboratory Data 24H LABS Laboratory Tests 2 07/03/20 11:49: Bedside Glucose (Misc Panel) 130H 07/03/20 17:12: Bedside Glucose (Misc Panel) 265H 07/03/20 19:43: Bedside Glucose (Misc Panel) 182H 07/04/20 06:13: Immature Granulocyte % (Auto) 0.7, Neutrophils (%) (Auto) 76.9H, Lymphocytes (%) (Auto) 14.5L, Monocytes (%) (Auto) 6.9H, Eosinophils (%) (Auto) 0.8, Basophils (%) (Auto) 0.2, Neutrophils # (Auto) 8.8H, Lymphocytes # (Auto) 1.7, Monocytes # (Auto) 0.8, Eosinophils # (Auto) 0.1, Basophils # (Auto) 0.0, Nucleated Red Blood Cells % (auto) 0.0, Anion Gap 3L, Glomerular Filtration Rate 51.6, Calcium Level 8.5L, Magnesium Level 2.3 CBC/BMP Laboratory Tests 07/04/20 06:13 Microbiology Microbiology 06/25/20 Respiratory Virus Panel (PCR) ([facility]) - Final, Complete 06/25/20 Blood Culture - Final, Complete NO GROWTH AFTER 5 DAYS 06/25/20 Blood Culture - Final, Complete NO GROWTH AFTER 5 DAYS AZEEM QUISPE MD Jul 04, 2020 09:26
[2020-07-04 14:00] VITALS: BP 134/72
[2020-07-04] MEDS: ATORVASTATIN 20 MG TAB PO SCH (20:42)
[2020-07-04 22:00] VITALS: BP 131/54
[2020-07-05] MEDS: IPRATROPIUM 0.5MG/ALBUTEROL 2.5MG INH SOL UD 3ML (DUONEB) NEB SCH ×2 (01:07→08:00)
[2020-07-05] MEDS: MOXIFLOXACIN 400 MG TAB PO SCH (05:14)
[2020-07-05 05:52] VITALS: BP 129/56
[2020-07-05] MEDS: HumaLOG INSULIN (NovoLOG) PER UNIT SC SCH ×3 (07:09→17:16)
[2020-07-05] MEDS: FORMOTEROL FUMARATE 20 MCG/2 ML INHALATION SOLUTION (PERFOROMIST) INH SCH (08:06)
[2020-07-05] MEDS: BUDESONIDE 0.5 MG/2 ML INHALATION SUSPENSION NEB SCH (08:06)
[2020-07-05] MEDS: PANTOPRAZOLE 40MG VIAL (C9113 PER 1) IV SCH (09:02)
[2020-07-05 09:03] VITALS: BP 126/56
[2020-07-05] MEDS: TORSEMIDE 100 MG TAB PO SCH (09:03)
[2020-07-05] MEDS: predniSONE 20 MG TAB PO SCH (09:03)
[2020-07-05] MEDS: guaiFENesin ER 600 MG TAB PO SCH (09:03)
[2020-07-05] MEDS: POLYVINYL ALCOHOL OPHTH SOLN 15 ML(LIQUITEARS) OU SCH ×3 (09:03→17:18)
[2020-07-05] MEDS: SPIRONOLACTONE 25 MG TAB PO SCH (09:03)
--- NOTE | 2020-07-05 10:54 | DS.PDOC ---
Discharge Summary General Date of Admission Jun 25, 2020 at 20:24 Date of Discharge 07/05/20 DISCHARGED TO ACUTE REHAB UNIT Discharge Summary DISCHARGE DIAGNOSES: 1. Acute metabolic encephalopathy secondary to hypercapnic respiratory failure, acute on chronic, with elevated CO2 level requiring bilevel positive airway pressure (BiPAP) therapy in the intensive care unit (ICU), RESOLVED 2. Chronic obstructive pulmonary disease (COPD) exacerbation, resolved 3. Sepsis secondary to right upper lobe pneumonia, resolved 4. Cor pulmonale, congestive heart failure with preserved ejection fraction with moderate pulmonary hypertension, RESOLVED 5. Chronic atrial fibrillation, on anticoagulation with Eliquis. 6. Dyslipidemia 7. Debility/Gait Instability 8. Left lower extremity hematoma/anterior chest ecchymosis bilateral upper extremity ecchymosis DISCHARGE MEDICATIONS: See below HISTORY OF PRESENTING ILLNESS: This 85-year-old female's daughter, Digna Silva, brought her to the hospital for evaluation because she has been having shortness of breath, O2 sats that drop as low as the 70s intermittently, lethargy and a cough that is productive of thick sputum for few days. Per d/w Dani Muller the patient was more alert and talkative on arrival. Because her CO2 was in the 90s she was put on BIPAP, but over the last hour she has became a lot more lethargic despite being on BIPAP and receiving solumedrol, Lasix and Duonebs. At the time of my visit the patient was not opening her eyes, not following commands and not talking and would only grimace or wave her hands with deep sternal rub. HOSPITAL COURSE: s/p Acute metabolic encephalopathy due to acute on chronic hypercapnic respiratory failure -resolved with BIPAP in the ICU. -Treated with Trilogy ventilatory at night and treatment for COPD exacerbation with Solu-Medrol and antibiotics Acute on chronic hypercapnic respiratory failure -Due to acute COPD exacerbation and pneumonia -Complete a full course of antibiotics and steroid taper -Currently resolved and at baseline mentation Acute COPD exacerbation - Status post Trilogy at nighttime, complicated by acute on chronic hypercapnic respiratory failure which has resolved -Completed antibiotics for pneumonia and prednisone taper Right upper lobe pneumonia Previously on Vanco and Zosyn on admission which were De- escalated to Avelox. She has completed 7 days of antibiotics . She has remained afebrile with no white count Acute on Chronic Diastolic CHF (Grade 1) / Pulmonary HTN / Cor Pulmonale Diuresed well with IV Lasix. Currently on home dose of torsemide. She still kept on strict I's and O's, daily weights, back to baseline . A. fib -Currently rate controlled on diltiazem.we have resumed her home dose -Was had been held due to ecchymotic areas on her chest, bilateral upper extremities and left alfonso status post fall -Since a hematoma has resolved with no active signs of bleeding. Patient has been resumed on her home dose of eliquis DLP - c/w Atorvastatin NIDDM2 - c/w ISS CKD3 - Cr baseline appears to be 0.9-1.1 - Cr appears to be at baseline Chronic venous insufficiency Obesity - BMI of 32 - Complicating medical care GI prophylaxis - c/w Protonix DVT prophylaxis - c/w full anticoagulation with Eliquis Left alfonso, hematoma ,anterior chest, bilateral upper extremity ecchymosis -Ellik was held for 48 hours now resumed patient's hematoma has improved. Continue with ice and elevation of the left lower extremity monitor for any other signs of bleeding. DISCHARGE PHYSICAL EXAMINATION: VITAL SIGNS see below GENERAL: Hard of hearing. No conversational dyspnea. No use of respiratory accessory muscles Patient appears her stated age. . No jaundice or icterus H EENT: Face is symmetric. Tongue is midline No JVD . Dry mucous membranes. Dentition. No cervical lymphadenopathy. No thyromegaly LUNGS: Diminished. Clear to auscultation. Air entry is equal. . No adventitious breath sounds HEART: S1, S2, sinus rhythm. No murmurs, rubs, or gallops. Nondisplaced point of maximal impulse ABDOMEN: Obese, soft, nontender, nondistended. , Positive bowel sounds 4 quadrants, No rebound, guarding, no hepatosplenomegaly. No abdominal bruit EXTREMITIES: Chronic 1+ edema. Patient has chronic ecchymosis, bilateral upper extremities and lower extremities. Left alfonso hematoma, warm to touch, purplish black in color. There is dorsalis SKIN: ecchymoses across anterior chest b/l dorsal arms, left alfonso. DISCHARGE LABORATORY DATA: see below MICROBIOLOGY Respiratory panel and COVID negative. Blood cultures June 25 are no growth after 5 days. IMAGING STUDIES: On 06/25/2020: Patient has a right upper lobe pneumonia. PROCEDURE INFORMATION: Exam: US Left Non-Vascular Joint or Other Extremity Structure, Limited Lower Extremity Exam date and time: 07/02/2020 6:11 PM Age: 85 years old Clinical indication: Injury or trauma; Fall; Swelling (edema); Lower leg; Left; Injury date: 07/01/20; Injury details: Fell while transporting to chair; Additional info: Left leg R/O abscess TECHNIQUE: Imaging protocol: Left US joint or other nonvascular extremity structure or structures. Real-time ultrasound with image documentation. Limited study. Exam focused on the lower extremity in the region of clinical interest. COMPARISON: No relevant prior studies available. FINDINGS: Soft tissues: Examination of the soft tissues anterior to the left tibia demonstrates a complex fluid collection measuring 6.8 x 2.2 x 7 cm consistent with a hematoma. Soft tissue edema demonstrated in the subcutaneous soft tissues. IMPRESSION: Examination of the soft tissues anterior to the left tibia demonstrates a complex fluid collection measuring 6.8 x 2.2 x 7 cm consistent with a hematoma. Soft tissue edema demonstrated in the subcutaneous soft tissues. Electronically signed by: Sanya Saucedo On 07/02/2020 18:27:31 PM PROCEDURE INFORMATION: Exam: XR Right Hip with Pelvis when Performed Exam date and time: 07/02/2020 5:53 PM Age: 85 years old Clinical indication: Pain and injury or trauma; Fall; Sprain or strain; Hip pain; Right hip; Additional info: Fall C/O right hip pain TECHNIQUE: Imaging protocol: XR Right hip with pelvis when performed. Views: 2 or 3 views. COMPARISON: CR HIP COMPLETE (AP/LAT) 11/06/2017 1:48 PM FINDINGS: Bones/joints: Unremarkable. No acute fracture. Soft tissues: Unremarkable. Vasculature: Atherosclerotic changes in the iliac and femoral arteries. IMPRESSION: No acute findings. Electronically signed by: Sanya Saucedo On 07/02/2020 18:05:10 PM PROCEDURE INFORMATION: Exam: XR Right Hip with Pelvis when Performed Exam date and time: 07/02/2020 5:53 PM Age: 85 years old Clinical indication: Pain and injury or trauma; Fall; Sprain or strain; Hip pain; Right hip; Additional info: Fall C/O right hip pain TECHNIQUE: Imaging protocol: XR Right hip with pelvis when performed. Views: 2 or 3 views. COMPARISON: CR HIP COMPLETE (AP/LAT) 11/06/2017 1:48 PM FINDINGS: Bones/joints: Unremarkable. No acute fracture. Soft tissues: Unremarkable. Vasculature: Atherosclerotic changes in the iliac and femoral arteries. IMPRESSION: No acute findings. Electronically signed by: Sanya Saucedo On 07/02/2020 18:05:10 PM PROCEDURE INFORMATION: Exam: XR Left Tibia and Fibula Exam date and time: 07/02/2020 5:53 PM Age: 85 years old Clinical indication: Pain and injury or trauma; Fall; Sprain or strain; Lower leg; Left; Additional info: Left leg R/O fracture S/P fall TECHNIQUE: Imaging protocol: XR Left tibia and fibula. Views: 2 views. COMPARISON: No relevant prior studies available. FINDINGS: Bones/joints: Osteoporosis. Soft tissues: Normal. Vasculature: Atherosclerotic changes in the femoropopliteal and infrapopliteal arteries. IMPRESSION: No acute findings. Electronically signed by: Sanya Saucedo On 07/02/2020 18:06:10 PM TIME SPENT ON DISCHARGE: 30 MIN Vital Signs/I&Os Vital Signs Date Time Temp Pulse Resp B/P (MAP) Pulse Ox O2 Delivery O2 Flow Rate FiO2 07/05/20 09:03 82 126/56 07/05/20 09:00 2.0 07/05/20 08:10 16 07/05/20 05:52 97.8 96 Nasal Cannula I&O- Last 24 Hours up to 6 AM 07/05/20 06:00 Intake Total 1290 ml Balance 1290 ml Laboratory Data Labs 24H Laboratory Tests 2 07/04/20 12:23: Bedside Glucose (Misc Panel) 147H 07/04/20 16:43: Bedside Glucose (Misc Panel) 225H 07/04/20 19:51: Bedside Glucose (Misc Panel) 257H 07/05/20 06:04: Bedside Glucose (Misc Panel) 80L FSBS Laboratory Tests Test 07/04/20 12:23 07/04/20 16:43 07/04/20 19:51 07/05/20 06:04 Range/Units Bedside Glucose (Misc Panel) 147 225 257 80 83-110 MG/DL Microbiology Microbiology 06/25/20 Respiratory Virus Panel (PCR) ([facility]) - Final, Complete 06/25/20 Blood Culture - Final, Complete NO GROWTH AFTER 5 DAYS 06/25/20 Blood Culture - Final, Complete NO GROWTH AFTER 5 DAYS Discharge Medications Scheduled Apixaban (Eliquis) 5 Mg Tablet, 5 MG PO BID, (Reported) Atorvastatin Calcium (Atorvastatin Calcium) 40 Mg Tab, 40 MG PO QHS, (Reported) Budesonide (Budesonide) 0.5 Mg/2 Ml Ampul.neb, 0.5 MG PO BID, (Reported) Calcium Carbonate/Vitamin D3 (Calcium 500-Vit D3 200 Tablet) 1 Each Tablet, 1 TAB PO DAILY, (Reported) Diltiazem HCl (Cartia Xt) 120 Mg Cap, 120 MG PO DAILY, (Reported) Docusate Sodium (Docusate Sodium) 100 Mg Capsule, 100 MG PO BID, (Reported) Formoterol Fumarate (Perforomist) 20 Mcg/2 Ml Vial.neb, 20 MCG PO BID, (Reported) Guaifenesin (Mucinex) 600 Mg Tab.er.12h, 600 MG PO BID, (Reported) Pantoprazole Sodium (Pantoprazole Sodium) 40 Mg Tablet.dr, 40 MG PO QAM, (Reported) Polyvinyl Alcohol (Artificial Tears) 1.4 % [place], 1 DROP OU QID, (Reported) Prednisone (Prednisone) 10 Mg Tablet, 10 MG PO DAILY, (Reported) Spironolactone (Spironolactone) 25 Mg Tab, 25 MG PO DAILY, (Reported) Torsemide (Torsemide) 100 Mg Tablet, 100 MG PO DAILY, (Reported) Umeclidinium [place] (Incruse Ellipta) 62.5 Mcg Blst.w.dev, 1 PUFF INH DAILY, (Reported) Vitamin B Complex/Folic Acid (B-Complex Tablet) 0.4 Mg Tablet, 1 TAB PO DAILY, (Reported) Scheduled PRN Acetaminophen (Acetaminophen) 500 Mg Tablet, 500 MG PO Q4H PRN for PAIN, (Reported) Albuterol Sulfate (Ventolin Hfa) 18 Gm Hfa.aer.ad, 2 PUFF INH Q4-6HP PRN for wheezing, (Reported) Ipratropium/Albuterol Sulfate (Iprat-Albut 0.5-3(2.5) mg/3 ml) 3 Ml Ampul.neb, 1 VIAL INH Q4H PRN for SHORTNESS OF BREATH, (Reported) Sodium Phosphate,[place]-Dibasic (Enema) 133 Ml Enema, 1 [place] DAILY PRN for CONSTIPATION, (Reported) Allergies Coded Allergies: No Known Allergies (Unverified , 12/25/18) AZEEM QUISPE MD Jul 05, 2020 10:40
[2020-07-05 14:00] VITALS: BP 131/55
[2020-07-05] MEDS: MOM 30ML SUSPENSION UDC PO PRN (17:16)
[2020-07-07] MEDS ORDERED: predniSONE 10 MG TAB PO SCH (09:00)
== END 2020-07-05 18:27 | DRG 189 ==
LOC: M ED 17:47 → M ICU 20:24 → ENRESERV 20:31 → M PCU 06-26 19:08 → M MS5PR 06-27 22:46 → M PM&R 07-05 17:45 → M MS5PR 07-05 17:45
PROVIDERS: ADMIT Internal Medicine; ATTEND General Practice
DX: J96.22 Acute and chronic respiratory failure with hypercapnia (principal); G93.41 Metabolic encephalopathy; J69.0 Pneumonitis due to inhalation of food and vomit; I50.33 Acute on chronic diastolic (congestive) heart failure; E87.2 Acidosis; J44.1 Chronic obstructive pulmonary disease with (acute) exacerbation; I48.20 Chronic atrial fibrillation, unspecified; R26.89 Other abnormalities of gait and mobility; R53.81 Other malaise; I27.89 Other specified pulmonary heart diseases; J96.11 Chronic respiratory failure with hypoxia; E11.22 Type 2 diabetes mellitus with diabetic chronic kidney disease; N18.30 Chronic kidney disease, stage 3 unspecified; Z66 Do not resuscitate; E66.9 Obesity, unspecified; I87.2 Venous insufficiency (chronic) (peripheral); Z99.81 Dependence on supplemental oxygen; Z79.01 Long term (current) use of anticoagulants; Z79.52 Long term (current) use of systemic steroids; Z79.899 Other long term (current) drug therapy; Z20.828 Contact with and (suspected) exposure to other viral communicable diseases; Z68.32 Body mass index [BMI] 32.0-32.9, adult

== ENCOUNTER 2020-07-05 12:13 | Inpatient (IN) | payer MEDICARE, MEDICAID ==
[~2020-07-05] VITALS: Ht 157.5 cm; Wt 73.6 kg
[~2020-07-05 12:13] MED LIST changes: +BUDE0.5S6 PO; +CEFD1CAP8 PO; +PERF20NE2 PO
--- NOTE | 2020-07-05 15:28 | HPEPDOC ---
Administrative Services Officer Note DATE OF ADMISSION: 07-05-20 DATE OF SERVICE: 07-05-20 TIME OF ADMISSION: Please refer to physician's admission order. SOURCE OF ADMISSION INFORMATION: [facility] record and patient CHIEF COMPLAINT: pneumonia with chronic diastolic CHF. HISTORY OF PRESENT ILLNESS: 85F pmh chronic diastolic CHF, Afib on eliquis, COPD on home 02, DM, CKD3, Obestiy, pulmonary HTN who presented to [facility] ED on 06-25-20 with worsening dyspnea and lethargy with worsening cough and found to be in hypercapneic respiratory failure. She was placed on BiPAP and found to have a right upper lobe pneumonia. She was treated for sepsis with IV antibiotics and eventually switched to po antibiotics. She was placed on a prednisone taper with blood cultures, respiratory panel, and covid testing negative. She developed a left LE hematoma for which her Eliquis was held with no significant drop on Hgb/Hct. She remained weak and had difficulty progressing in her therapy sessions, was noted to still require assistance in ADls and ambulation below her prior level of function and deemed medically appropriate for discharge to ARU on 07-05-20. REVIEW OF SYSTEMS: The following is a completed review of systems and has been reviewed. Review of systems otherwise unremarkable. PAIN: Patient self reports left anterior alfonso pain EYES: No recent vision changes EARS, NOSE, & THROAT: No throat pain, or dysphagia, or rhinorrhea CARDIOVASCULAR: Denies chest pain or palpitations PULMONARY: +dyspnea on exertion (chronic), cough (chronic) GASTROINTESTINAL: Denies constipation/diarrhea GENITOURINARY: denies dysuria MUSCULOSKELETAL: generalized weakness NEUROLOGICAL:denies paresthesias HEMATOLOGICAL: +easy bruising SKIN: left anterior alfonso hematoma, scattered ecchymosis PSYCHIATRIC: Unremarkable All other review of systems found to be negative. PAST MEDICAL HISTORY: as per HPI ALLERGIES: Please see below. MEDICATIONS: Please see below. SOCIAL HISTORY: Ex-smoker, no etoh/illicit drugs DIET: low sodium, fluid restrict PHYSICAL EXAMINATION: VITAL SIGNS: Please see below. GENERAL: Pleasant and cooperative. No acute distress. HEENT: PERRL. Extraocular movements intact. Clear conjunctiva CARDIOVASCULAR: Regular rate and rhythm. No murmurs, rubs, or gallops LUNGS: Clear to auscultation bilaterally. No wheezes. scattered rhonchi ABDOMEN: Soft, nontender, nondistended. Positive bowel sounds. Normal active bowel sounds NEUROLOGICAL: Alert and oriented times three. Cranial nerves II through XII grossly intact. Sensation grossly intact EXTREMITIES: 5-\5 strength bilateral upper extremities. 5-\5 strength right lower extremity. 5-/5 strength in left lower extremity. +anasarca SKIN: scattered ecchymosis , left anterior alfonso ecchymosis, sacrum with blanchable erythema LABORATORY DATA: Please see below. IMAGING:Imaging documentation personally reviewed by record FUNCTIONAL STATUS: Premorbid: Contact guard-supervision for mobility and ADLs On Admission: Mod-Max assist for functional transfers, mobility, dressing, toileting GOALS: [id number] for ambulation household transfers, bed mobility, dressing, toileting, bathing ASSESSMENT: 85-year-old F with past medical history of chronic diastolic CHF and COPD who presents status post sepsis due to pneumonia with generalized weakness and gait impairment PLAN: 1. Rehab- PT/OT advance gait and ADLs, strengthen/stretch/maintain ROM all 4limbs, energy conservation, family training 2. Cardiac- hx of chronic diastolic CHF- fluid restrict, daily weights, c/u diuretics, medicine consulted to assist in overall management -Afib with eliquis recently held due to RLE hematoma, restarted on discharge, will monitor Hgb/Hct, c/u diltiazem -HLD c/u statin 3. Resp- hx of COPD with recent hypercapneic respiratory failure, c/u 02 goal 88-92%, nebulizer treatments -c/u steroid taper, s/p course of antibiotics for RUE pneumonia, monitor for worsening infection, Mucinex -BiPAP at night, daughter requesting to leave NC on underneath as patient tends to remove mask at night 4. GI ppx- protonix 40 BID ( increase due to steroid use) 5. DVT ppx- on eliquis for afib, monitor left anterior tibia hematoma 6. - monitor PVRs 7. Renal- hx of CKD monitor for ZAKIYA while on diuretics, will consider renal consult for fluid management 8. Pain- tylenol prn 9. Dispo- TBD POST ADMISSION PHYSICIAN EVALUATION: Medical and functional status: Description of medical status, medical assessment: As above. Rehabilitation diagnosis and current and prior cold morbid medical conditions as above. Risk of complications and plans to mitigate them as above. Description of functional status current status is as above. Prior status as above. Status compared to preadmission: There are no clinically significant differences between the patient's current status and the information described on the preadmission screening document. Treatment plan anticipated: Treatment plan is as described above. Required disciplines including physical therapy, occupational therapy, others as noted above. Intensity of services: 3 hours a day, 6 days a week. Special considerations: There are no specific special or safety considerations that would likely preclude immediate implementation of an intensive rehabilitation program or subsequently influence the plan of care ATTESTATION: Considering all the information above, it is my best judgment that this patient requires intensive rehabilitation therapy as described above and an inpatient hospital environment due to the complexity of nursing, medical, and rehabilitation needs required by the patient. Furthermore, this patient can reasonably be expected to participate in an benefit from an inpatient rehabilitation stay with an interdisciplinary team approach to the delivery of rehabilitation care under the direction and supervision of rehabilitation physician PROGNOSIS: good ESTIMATED LENGTH OF STAY:12-14 days. PROJECTED DISCHARGE DESTINATION: Home with family support and any durable medical equipment required to increase functional safety and mobility. TIME SPENT COUNSELING AND COORDINATING INITIAL CARE: Greater than 70 minutes. Vital Signs as per EMR Home Medications Scheduled Apixaban (Eliquis) 5 Mg Tablet, 5 MG PO BID, (Reported) Atorvastatin Calcium (Atorvastatin Calcium) 40 Mg Tab, 40 MG PO QHS, (Reported) Budesonide (Budesonide) 0.5 Mg/2 Ml Ampul.neb, 0.5 MG PO BID, (Reported) Calcium Carbonate/Vitamin D3 (Calcium 500-Vit D3 200 Tablet) 1 Each Tablet, 1 TAB PO DAILY, (Reported) Diltiazem HCl (Cartia Xt) 120 Mg Cap, 120 MG PO DAILY, (Reported) Docusate Sodium (Docusate Sodium) 100 Mg Capsule, 100 MG PO BID, (Reported) Formoterol Fumarate (Perforomist) 20 Mcg/2 Ml Vial.neb, 20 MCG PO BID, (Reported) Guaifenesin (Mucinex) 600 Mg Tab.er.12h, 600 MG PO BID, (Reported) Pantoprazole Sodium (Pantoprazole Sodium) 40 Mg Tablet.dr, 40 MG PO QAM, (Reported) Polyvinyl Alcohol (Artificial Tears) 1.4 % Kin[place]al, 1 DROP OU QID, (Reported) Prednisone (Prednisone) 10 Mg Tablet, 10 MG PO DAILY, (Reported) Spironolactone (Spironolactone) 25 Mg Tab, 25 MG PO DAILY, (Reported) Torsemide (Torsemide) 100 Mg Tablet, 100 MG PO DAILY, (Reported) Umeclidinium [place] (Incruse Ellipta) 62.5 Mcg Blst.w.dev, 1 PUFF INH DAILY, (Reported) Vitamin B Complex/Folic Acid (B-Complex Tablet) 0.4 Mg Tablet, 1 TAB PO DAILY, (Reported) Scheduled PRN Acetaminophen (Acetaminophen) 500 Mg Tablet, 500 MG PO Q4H PRN for PAIN, (Reported) Albuterol Sulfate (Ventolin Hfa) 18 Gm Hfa.aer.ad, 2 PUFF INH Q4-6HP PRN for wheezing, (Reported) Ipratropium/Albuterol Sulfate (Iprat-Albut 0.5-3(2.5) mg/3 ml) 3 Ml Ampul.neb, 1 VIAL INH Q4H PRN for SHORTNESS OF BREATH, (Reported) Sodium Phosphate,[place]-Dibasic (Enema) 133 Ml Enema, 1 [place] DAILY PRN for CONSTIPATION, (Reported) Allergies Coded Allergies: No Known Allergies (Unverified , 12/25/18) A-FIB/CHADSVASC A-FIB History Current/History of A-Fib/PAF?: Yes Current PO Anticoag Therapy: Yes DOMINIK STEWARD MD Jul 05, 2020 15:28
[2020-07-05] MEDS ORDERED: BISACODYL 10 MG SUPP PR PRN (15:30)
[2020-07-05] MEDS ORDERED: ALBUTEROL SULFATE 2.5 MG/0.5 ML INH NEB SOLN NEB PRN (15:30)
[2020-07-05] MEDS: POLYVINYL ALCOHOL OPHTH SOLN 15 ML(LIQUITEARS) OU SCH ×2 (16:00→21:50)
[2020-07-05] MEDS: guaiFENesin 200 MG TAB PO SCH ×2 (16:00→21:50)
[2020-07-05] MEDS: CALCIUM/VITAMIN D 500 MG TAB PO SCH ×2 (16:00→21:49)
[2020-07-05] MEDS: REMEDY PHYTOPLEX Z-GUARD PASTE 113GM TUBE (FROM STOREROOM PRODUCT) TOP SCH ×3 (16:00→23:47)
[2020-07-05 20:00] VITALS: BP 118/56
[2020-07-05] MEDS: FORMOTEROL FUMARATE 20 MCG/2 ML INHALATION SOLUTION (PERFOROMIST) INH SCH (20:43)
[2020-07-05] MEDS: BUDESONIDE 0.5 MG/2 ML INHALATION SUSPENSION INH SCH (20:43)
[2020-07-05] MEDS: ATORVASTATIN 20 MG TAB PO SCH (21:49)
[2020-07-05] MEDS: DOCUSATE SODIUM 100 MG CAP PO SCH (21:50)
[2020-07-05] MEDS: PANTOPRAZOLE 40MG TAB (PROTONIX) PO SCH (21:50)
[2020-07-05] MEDS: SENNA 8.6 MG TAB (SENOKOT) PO SCH (21:50)
[2020-07-05] MEDS: ACETAMINOPHEN TAB 650MG DOSE (2X325MG) PO PRN (21:53)
[2020-07-05] MEDS: APIXABAN 5 MG TAB (ELIQUIS) PO SCH (21:59)
[2020-07-06 05:45] VITALS: BP 142/71
[2020-07-06 06:27] LABS: BASO % 0.2 % (0.0-1.0); EOS # 0.1 10^3/uL (0.0-0.5); EOS % 0.9 % (0.0-3.0); HEMATOCRIT 36.8 % (36.0-47.0); HEMOGLOBIN 11.1 g/dl (12.0-15.5); LYMPH # 1.9 10^3/uL (1.5-5.0); LYMPH % 15.3 % (24.0-44.0); MEAN CORPUSCULAR HEMOGLOBIN 28.6 pg (27.0-33.0); MEAN CORPUSCULAR HGB CONC 30.2 g/dl (32.0-36.5); MEAN CORPUSCULAR VOLUME 94.8 fl (80.0-96.0); MONO # 0.9 10^3/uL (0.0-0.8); MONO % 6.7 % (0.0-5.0); NEUTROPHILS # 9.7 10^3/uL (1.5-8.5); PLATELET COUNT, AUTOMATED 201 10^3/uL (150-450); RED BLOOD COUNT 3.88 10^6/uL (4.00-5.40); WHITE BLOOD COUNT 12.7 10^3/uL (4.0-10.0)
[2020-07-06 06:55] LABS: ALBUMIN 2.8 GM/DL (3.2-5.2); BILIRUBIN,TOTAL 0.6 MG/DL (0.2-1.0); CALCIUM LEVEL 9.1 MG/DL (8.8-10.2); CREATININE FOR GFR 1.11 MG/DL (0.55-1.30); TOTAL PROTEIN 5.7 GM/DL (6.4-8.2)
[2020-07-06] MEDS: BUDESONIDE 0.5 MG/2 ML INHALATION SUSPENSION INH SCH ×2 (08:00→19:19)
[2020-07-06] MEDS: FORMOTEROL FUMARATE 20 MCG/2 ML INHALATION SOLUTION (PERFOROMIST) INH SCH ×2 (08:00→19:19)
[2020-07-06] MEDS: TORSEMIDE 100 MG TAB PO SCH (08:05)
[2020-07-06] MEDS: guaiFENesin 200 MG TAB PO SCH ×3 (08:06→20:52)
[2020-07-06] MEDS: VITAMIN B COMPLEX/VIT C CAP PO SCH (08:06)
[2020-07-06] MEDS: predniSONE 10 MG TAB PO SCH (08:06)
[2020-07-06] MEDS: PANTOPRAZOLE 40MG TAB (PROTONIX) PO SCH ×2 (08:06→20:52)
[2020-07-06] MEDS: APIXABAN 5 MG TAB (ELIQUIS) PO SCH ×2 (08:06→20:52)
[2020-07-06] MEDS: SPIRONOLACTONE 25 MG TAB PO SCH (08:06)
[2020-07-06] MEDS: DOCUSATE SODIUM 100 MG CAP PO SCH ×2 (08:06→20:51)
[2020-07-06] MEDS: CALCIUM/VITAMIN D 500 MG TAB PO SCH ×3 (08:06→20:52)
[2020-07-06] MEDS: POLYVINYL ALCOHOL OPHTH SOLN 15 ML(LIQUITEARS) OU SCH ×3 (08:07→20:53)
[2020-07-06] MEDS: REMEDY PHYTOPLEX Z-GUARD PASTE 113GM TUBE (FROM STOREROOM PRODUCT) TOP SCH ×3 (08:07→20:54)
--- NOTE | 2020-07-06 12:18 | IPNPDOC ---
PM&R Progress Note DATE OF SERVICE: Jul 06, 2020 Production Technologist Progress Note Subjective: Patient reproting she feels better today, denies having a cough and thinks her breathing has improved. REVIEW OF SYSTEMS: The following is a completed review of systems and has been reviewed. Review of systems otherwise unremarkable. PAIN: Patient self reports left anterior alfonso pain EYES: No recent vision changes EARS, NOSE, & THROAT: No throat pain, or dysphagia, or rhinorrhea CARDIOVASCULAR: Denies chest pain or palpitations PULMONARY: +dyspnea on exertion (chronic), cough (chronic) GASTROINTESTINAL: Denies constipation/diarrhea GENITOURINARY: denies dysuria MUSCULOSKELETAL: generalized weakness NEUROLOGICAL:denies paresthesias HEMATOLOGICAL: +easy bruising SKIN: left anterior alfonso hematoma, scattered ecchymosis PSYCHIATRIC: Unremarkable All other review of systems found to be negative. PHYSICAL EXAMINATION: VITAL SIGNS: Please see below. GENERAL: Pleasant and cooperative. No acute distress. HEENT: PERRL. Extraocular movements intact. Clear conjunctiva CARDIOVASCULAR: Regular rate and rhythm. No murmurs, rubs, or gallops LUNGS: Clear to auscultation bilaterally. No wheezes. scattered rhonchi ABDOMEN: Soft, nontender, nondistended. Positive bowel sounds. Normal active bowel sounds NEUROLOGICAL: Alert and oriented times three. Cranial nerves II through XII grossly intact. Sensation grossly intact EXTREMITIES: 5-\5 strength bilateral upper extremities. 5-\5 strength right lower extremity. 5-/5 strength in left lower extremity. +anasarca SKIN: scattered ecchymosis , left anterior alfonso ecchymosis, sacrum with blanchable erythema ASSESSMENT: 85-year-old F with past medical history of chronic diastolic CHF and COPD who presents status post sepsis due to pneumonia with generalized weakness and gait impairment PLAN: 1. Rehab- PT/OT advance gait and ADLs, strengthen/stretch/maintain ROM all 4limbs, energy conservation, family training 2. Cardiac- hx of chronic diastolic CHF- fluid restrict, daily weights, c/u diu retics, medicine consulted to assist in overall management -Afib with eliquis recently held due to LLE hematoma, restarted on discharge, will monitor Hgb/Hct, c/u diltiazem -HLD c/u statin 3. Resp- hx of COPD with recent hypercapneic respiratory failure, c/u 02 goal 88-92%, nebulizer treatments -c/u steroid taper, s/p course of antibiotics for RUE pneumonia, monitor for worsening infection, Mucinex-stable -BiPAP at night, daughter requesting to leave NC on underneath as patient tends to remove mask at night 4. GI ppx- protonix 40 BID (increase due to steroid use) 5. DVT ppx- on eliquis for afib, monitor left anterior tibia hematoma 6. - monitor PVRs 7. Renal- hx of CKD monitor for ZAKIYA while on diuretics, will consider renal consult for fluid management 8. Pain- tylenol prn 9. Dispo- TBD Allergies Coded Allergies: No Known Allergies (Unverified , 12/25/18) Vital Signs Vital Signs Date Time Temp Pulse Resp B/P (MAP) Pulse Ox O2 Delivery O2 Flow Rate FiO2 07/06/20 09:34 2.0 07/06/20 08:06 83 142/71 07/06/20 05:45 97.5 16 93 Nasal Cannula Laboratory Data CBC/BMP Laboratory Tests 07/06/20 06:04 Labs 24H Laboratory Tests 2 07/05/20 20:10: Bedside Glucose (Misc Panel) 165H 07/06/20 06:04: Immature Granulocyte % (Auto) 0.9, Neutrophils (%) (Auto) 76.0H, Lymphocytes (%) (Auto) 15.3L, Monocytes (%) (Auto) 6.7H, Eosinophils (%) (Auto) 0.9, Basophils (%) (Auto) 0.2, Neutrophils # (Auto) 9.7H, Lymphocytes # (Auto) 1.9, Monocytes # (Auto) 0.9H, Eosinophils # (Auto) 0.1, Basophils # (Auto) 0.0, Nucleated Red Blood Cells % (auto) 0.0, Anion Gap 2L, Glomerular Filtration Rate 50.0, Calcium Level 9.1, Total Bilirubin 0.6, Aspartate Amino Transf (AST/SGOT) 18, Alanine Aminotransferase (ALT/SGPT) 32, Alkaline Phosphatase 104, Total Protein 5.7L, Albumin 2.8L, Albumin/Globulin Ratio 1.0L 07/06/20 11:10: Bedside Glucose (Misc Panel) 129H Current Medications Current Medications Current Medications Medications (Trade) Dose Ordered Sig/Yanet Route PRN Reason Start Time Stop Time Status Last Admin Dose Admin Acetaminophen (Tylenol Tab) 650 mg Q4HP PRN PO fever/MILD PAIN (PS 1-4) 07/05/20 15:30 07/05/20 21:53 Albuterol Sulfate (Proventil Neb) 2.5 mg Q2HP PRN NEB SOB/WHEEZING 07/05/20 15:30 Apixaban (Eliquis) 5 mg BID PO 07/05/20 21:00 07/06/20 08:06 Artificial Tears (Akwa Tears) 2 drop TID OU 07/05/20 16:00 07/06/20 08:07 Atorvastatin Calcium (Lipitor) 40 mg QHS PO 07/05/20 21:00 07/05/20 21:49 Bisacodyl (Dulcolax Suppository) 10 mg DAILYPRN PRN [place] CONSTIPATION 07/05/20 15:30 Budesonide (Pulmicort) 0.5 mg RBID INH 07/05/20 20:00 07/06/20 08:00 Calcium/Vitamin D (Oscal D) 500 mg TID PO 07/05/20 16:00 07/06/20 08:06 Diltiazem HCl (Cardizem Cd) 120 mg DAILY PO 07/06/20 09:00 07/06/20 08:06 Docusate Sodium (Colace) 100 mg BID PO 07/05/20 21:00 07/06/20 08:06 Formoterol Fumarate (Perforomist) 20 mcg RBID INH 07/05/20 20:00 07/06/20 08:00 Guaifenesin (Robitussin Tab) 400 mg TID PO 07/05/20 16:00 07/06/20 08:06 Pantoprazole Sodium (Protonix) 40 mg BID PO 07/05/20 21:00 07/06/20 08:06 Prednisone (Deltasone) 10 mg DAILY PO 07/06/20 09:00 07/06/20 08:06 Senna (Senokot) 1 tab QHS PO 07/05/20 21:00 07/05/20 21:50 Spironolactone (Aldactone) 25 mg QAM PO 07/06/20 09:00 07/06/20 08:06 Torsemide (Demadex) 100 mg DAILY PO 07/06/20 09:00 07/06/20 08:05 Vitamin B Complex/ Vitamin C (Therapeutic B Complex w/C) 1 cap DAILY PO 07/06/20 09:00 07/06/20 08:06 DOMINIK STEWARD MD Jul 06, 2020 12:18
[2020-07-06 14:00] VITALS: BP 157/72
--- NOTE | 2020-07-06 18:48 | IPNPDOC ---
Text Note Date of Service The patient was seen on 07/06/20. NOTE Subjective: No any acute events overnight. Patient denied fever, chills, nausea, vomiting, diarrhea or dysuria Objective: GENERAL APPEARANCE: NAD HEENT: no scleral icterus, no JVD, EOMI CARDIOVASCULAR: S1S2 LUNGS: CTA ABDOMEN: soft & not tender w palpitation MUSCULOSKELETAL: no cyanosis, no swelling INTEGUMENT: no generalized palor NEUROLOGICAL: cranial nerve function from 2-12 intact intact, follows commands, speech not dysarthric Assessment and plan: 85-year-old F with past medical history of chronic diastolic CHF and COPD who presents status post sepsis due to pneumonia with generalized weakness and gait impairment Diastolic CHF Not in acute exacerbation I's and O's Cardiac diet Continue cardioprotective medications Atrial fibrillation Heart rate under control Continue oral targeted anticoagulation therapy COPD Not in acute exacerbation Continue inhalers GERD Continue Protonix CKD Continue to monitor kidney function Deconditioning Secondary to multiple comorbidities and recent hospitalization for pneumonia Continue PT/OT VS,Fishbone, I+O VS, Fishbone, I+O Laboratory Tests 07/06/20 06:04 Vital Signs Date Time Temp Pulse Resp B/P (MAP) Pulse Ox O2 Delivery O2 Flow Rate FiO2 07/06/20 14:00 99.2 92 20 157/72 (100) 89 Nasal Cannula 3.0 ESSIE ARZOLA DO Jul 06, 2020 18:48
[2020-07-06 20:00] VITALS: BP 152/78
[2020-07-06] MEDS: SENNA 8.6 MG TAB (SENOKOT) PO SCH (20:51)
[2020-07-06] MEDS: ATORVASTATIN 20 MG TAB PO SCH (20:52)
[2020-07-06] MEDS: ACETAMINOPHEN TAB 650MG DOSE (2X325MG) PO PRN (21:40)
[2020-07-07 06:19] VITALS: BP 142/70
[2020-07-07 06:25] LABS: BASO % 0.2 % (0.0-1.0); EOS # 0.2 10^3/uL (0.0-0.5); EOS % 1.4 % (0.0-3.0); HEMATOCRIT 34.5 % (36.0-47.0); HEMOGLOBIN 10.4 g/dl (12.0-15.5); LYMPH # 2.2 10^3/uL (1.5-5.0); LYMPH % 16.3 % (24.0-44.0); MEAN CORPUSCULAR HEMOGLOBIN 28.2 pg (27.0-33.0); MEAN CORPUSCULAR HGB CONC 30.1 g/dl (32.0-36.5); MEAN CORPUSCULAR VOLUME 93.5 fl (80.0-96.0); MONO # 0.8 10^3/uL (0.0-0.8); MONO % 6.3 % (0.0-5.0); NEUTROPHILS # 9.9 10^3/uL (1.5-8.5); PLATELET COUNT, AUTOMATED 184 10^3/uL (150-450); RED BLOOD COUNT 3.69 10^6/uL (4.00-5.40); WHITE BLOOD COUNT 13.2 10^3/uL (4.0-10.0)
[2020-07-07 06:46] LABS: CALCIUM LEVEL 9.7 MG/DL (8.8-10.2); CREATININE FOR GFR 1.04 MG/DL (0.55-1.30); GLOMERULAR FILTRATION RATE 53.9 (>32); POTASSIUM SERUM 3.8 MEQ/L (3.5-5.1)
[2020-07-07] MEDS: BUDESONIDE 0.5 MG/2 ML INHALATION SUSPENSION INH SCH ×2 (07:26→20:03)
[2020-07-07] MEDS: FORMOTEROL FUMARATE 20 MCG/2 ML INHALATION SOLUTION (PERFOROMIST) INH SCH ×2 (07:26→20:03)
[2020-07-07] MEDS: TORSEMIDE 100 MG TAB PO SCH (08:27)
[2020-07-07] MEDS: predniSONE 10 MG TAB PO SCH (08:27)
[2020-07-07] MEDS: VITAMIN B COMPLEX/VIT C CAP PO SCH (08:27)
[2020-07-07] MEDS: DOCUSATE SODIUM 100 MG CAP PO SCH ×2 (08:27→22:07)
[2020-07-07] MEDS: PANTOPRAZOLE 40MG TAB (PROTONIX) PO SCH ×2 (08:28→22:07)
[2020-07-07] MEDS: REMEDY PHYTOPLEX Z-GUARD PASTE 113GM TUBE (FROM STOREROOM PRODUCT) TOP SCH ×3 (08:28→22:10)
[2020-07-07] MEDS: CALCIUM/VITAMIN D 500 MG TAB PO SCH ×3 (08:28→22:08)
[2020-07-07] MEDS: APIXABAN 5 MG TAB (ELIQUIS) PO SCH ×2 (08:28→22:07)
[2020-07-07] MEDS: guaiFENesin 200 MG TAB PO SCH ×3 (08:28→22:07)
[2020-07-07] MEDS: SPIRONOLACTONE 25 MG TAB PO SCH (08:28)
[2020-07-07] MEDS: POLYVINYL ALCOHOL OPHTH SOLN 15 ML(LIQUITEARS) OU SCH ×3 (08:28→22:09)
--- NOTE | 2020-07-07 12:30 | IPNPDOC ---
PM&R Progress Note DATE OF SERVICE: Jul 07, 2020 Referral Nurse Progress Note Subjective: Patient seen this morning after having multiple desaturations in therapy, reporting she had taken the mask off overnight. She said her breathing felt much better with the bipap having been pl;kaur back on her and she was able to eat lunch comfortably. REVIEW OF SYSTEMS: The following is a completed review of systems and has been reviewed. Review of systems otherwise unremarkable. PAIN: Patient self reports left anterior alfonso pain EYES: No recent vision changes EARS, NOSE, & THROAT: No throat pain, or dysphagia, or rhinorrhea CARDIOVASCULAR: Denies chest pain or palpitations PULMONARY: +dyspnea on exertion (chronic), cough (chronic) GASTROINTESTINAL: Denies constipation/diarrhea GENITOURINARY: denies dysuria MUSCULOSKELETAL: generalized weakness NEUROLOGICAL:denies paresthesias HEMATOLOGICAL: +easy bruising SKIN: left anterior alfonso hematoma, scattered ecchymosis PSYCHIATRIC: Unremarkable All other review of systems found to be negative. PHYSICAL EXAMINATION: VITAL SIGNS: Please see below. GENERAL: Pleasant and cooperative. No acute distress. HEENT: PERRL. Extraocular movements intact. Clear conjunctiva CARDIOVASCULAR: Regular rate and rhythm. No murmurs, rubs, or gallops LUNGS: Clear to auscultation bilaterally. No wheezes. scattered rhonchi ABDOMEN: Soft, nontender, nondistended. Positive bowel sounds. Normal active bowel sounds NEUROLOGICAL: Alert and oriented times three. Cranial nerves II through XII grossly intact. Sensation grossly intact EXTREMITIES: 5-\5 strength bilateral upper extremities. 5-\5 strength right low er extremity. 5-/5 strength in left lower extremity. +anasarca SKIN: scattered ecchymosis , left anterior alfonso ecchymosis, sacrum with blanchable erythema ASSESSMENT: 85-year-old F with past medical history of chronic diastolic CHF and COPD who presents status post sepsis due to pneumonia with generalized weakness and gait impairment PLAN: 1. Rehab- PT/OT advance gait and ADLs, strengthen/stretch/maintain ROM all 4limbs, energy conservation, family training 2. Cardiac- hx of chronic diastolic CHF- fluid restrict, daily weights, c/u diuretics, medicine consulted to assist in overall management -Afib with eliquis recently held due to LLE hematoma, restarted on discharge, will monitor Hgb/Hct, c/u diltiazem -HLD c/u statin 3. Resp- hx of COPD with recent hypercapneic respiratory failure, c/u 02 goal 88-92%, nebulizer treatments -c/u steroid taper, s/p course of antibiotics for RUE pneumonia, monitor for worsening infection, Mucinex-stable -BiPAP at night, daughter requesting to leave NC on underneath as patient tends to remove mask at night- patient desaturated this morning with increased dyspnea, had asked to have Bipap removed overnight because alarm kept going off (NC was on, but patient is a mouth breather), have discussed with nursing/respiratory staff and added nursing order to check circuitry q1h over night and call respiratory if unable to correct leakage to avoid morning desaturations and fatigue- patient appears comfortable in bed now, alert, and breathing comfortably with bipap on -persistent leukocytosis likely due to steroids 4. GI ppx- protonix 40 BID (increase due to steroid use) 5. DVT ppx- on eliquis for afib, monitor left anterior tibia hematoma 6. - monitor PVRs- incontinence, will check UA 7. Renal- hx of CKD monitor for ZAKIYA while on diuretics, will consider renal consult for fluid management 8. Pain- tylenol prn 9. Dispo- TBD Allergies Coded Allergies: No Known Allergies (Unverified , 12/25/18) Vital Signs Vital Signs Date Time Temp Pulse Resp B/P (MAP) Pulse Ox O2 Delivery O2 Flow Rate FiO2 07/07/20 09:26 3.0 07/07/20 08:27 70 142/70 07/07/20 06:19 97.6 20 95 Nasal Cannula Laboratory Data CBC/BMP Laboratory Tests 07/07/20 05:59 Labs 24H Laboratory Tests 2 07/06/20 16:14: Bedside Glucose (Misc Panel) 210H 07/06/20 19:40: Bedside Glucose (Misc Panel) 155H 07/07/20 05:17: Bedside Glucose (Misc Panel) 82L 07/07/20 05:59: Immature Granulocyte % (Auto) 0.8, Neutrophils (%) (Auto) 75.0H, Lymphocytes (%) (Auto) 16.3L, Monocytes (%) (Auto) 6.3H, Eosinophils (%) (Auto) 1.4, Basophils (%) (Auto) 0.2, Neutrophils # (Auto) 9.9H, Lymphocytes # (Auto) 2.2, Monocytes # (Auto) 0.8, Eosinophils # (Auto) 0.2, Basophils # (Auto) 0.0, Nucleated Red Blood Cells % (auto) 0.0, Anion Gap 0L, Glomerular Filtration Rate 53.9, Calcium Level 9.7 Current Medications Current Medications Current Medications Medications (Trade) Dose Ordered Sig/Yanet Route PRN Reason Start Time Stop Time Status Last Admin Dose Admin Acetaminophen (Tylenol Tab) 650 mg Q4HP PRN PO fever/MILD PAIN (PS 1-4) 07/05/20 15:30 07/06/20 21:40 Albuterol Sulfate (Proventil Neb) 2.5 mg Q2HP PRN NEB SOB/WHEEZING 07/05/20 15:30 Apixaban (Eliquis) 5 mg BID PO 07/05/20 21:00 07/07/20 08:28 Artificial Tears (Akwa Tears) 2 drop TID OU 07/05/20 16:00 07/07/20 08:28 Atorvastatin Calcium (Lipitor) 40 mg QHS PO 07/05/20 21:00 07/06/20 20:52 Bisacodyl (Dulcolax Suppository) 10 mg DAILYPRN PRN [place] CONSTIPATION 07/05/20 15:30 Budesonide (Pulmicort) 0.5 mg RBID INH 07/05/20 20:00 07/07/20 07:26 Calcium/Vitamin D (Oscal D) 500 mg TID PO 07/05/20 16:00 07/07/20 08:28 Diltiazem HCl (Cardizem Cd) 120 mg DAILY PO 07/06/20 09:00 07/07/20 08:27 Docusate Sodium (Colace) 100 mg BID PO 07/05/20 21:00 07/07/20 08:27 Formoterol Fumarate (Perforomist) 20 mcg RBID INH 07/05/20 20:00 07/07/20 07:26 Guaifenesin (Robitussin Tab) 400 mg TID PO 07/05/20 16:00 07/07/20 08:28 Pantoprazole Sodium (Protonix) 40 mg BID PO 07/05/20 21:00 07/07/20 08:28 Prednisone (Deltasone) 10 mg DAILY PO 07/06/20 09:00 10/7/20 08:27 Senna (Senokot) 1 tab QHS PO 07/05/20 21:00 07/06/20 20:51 Spironolactone (Aldactone) 25 mg QAM PO 07/06/20 09:00 07/07/20 08:28 Torsemide (Demadex) 100 mg DAILY PO 07/06/20 09:00 07/07/20 08:27 Vitamin B Complex/ Vitamin C (Therapeutic B Complex w/C) 1 cap DAILY PO 07/06/20 09:00 07/07/20 08:27 DOMINIK STEWARD MD Jul 07, 2020 12:30
[2020-07-07 13:59] VITALS: BP 133/62
[2020-07-07 20:30] VITALS: BP 190/80
--- NOTE | 2020-07-07 21:50 | REPVR ---
PROCEDURE INFORMATION: Exam: XR Chest, 1 View Exam date and time: 07/07/2020 8:49 PM Age: 85 years old Clinical indication: Other: Pna TECHNIQUE: Imaging protocol: XR of the chest Views: 1 view. COMPARISON: CR PORTABLE CHEST X-RAY 06/25/2020 7:48 PM FINDINGS: Lungs: Unremarkable. No consolidation. Pleural space: Unremarkable. No pleural effusion. No pneumothorax. Heart/Mediastinum: Unremarkable. No cardiomegaly. Bones/joints: Degenerative changes of the spine and bilateral shoulder joints. IMPRESSION: No acute abnormality. Electronically signed by: Phill Torres On 07/07/2020 21:50:31 PM
[2020-07-07 22:05] VITALS: BP 140/78
[2020-07-07] MEDS: oxyBUTYnin 5 MG TAB PO SCH (22:07)
[2020-07-07] MEDS: ATORVASTATIN 20 MG TAB PO SCH (22:07)
[2020-07-07 22:08] LABS: HEMATOCRIT 35.9 % (36.0-47.0); HEMOGLOBIN 10.8 g/dl (12.0-15.5); MEAN CORPUSCULAR HEMOGLOBIN 28.1 pg (27.0-33.0); MEAN CORPUSCULAR HGB CONC 30.1 g/dl (32.0-36.5); MEAN CORPUSCULAR VOLUME 93.2 fl (80.0-96.0); PLATELET COUNT, AUTOMATED 208 10^3/uL (150-450); RED BLOOD COUNT 3.85 10^6/uL (4.00-5.40); WHITE BLOOD COUNT 15.3 10^3/uL (4.0-10.0)
[2020-07-07] MEDS: SENNA 8.6 MG TAB (SENOKOT) PO SCH (22:08)
[2020-07-07 22:25] LABS: CALCIUM LEVEL 9.6 MG/DL (8.8-10.2); CREATININE FOR GFR 1.27 MG/DL (0.55-1.30); GLOMERULAR FILTRATION RATE 42.8 (>32)
[2020-07-08 05:45] VITALS: BP 136/84
[2020-07-08] MEDS: FORMOTEROL FUMARATE 20 MCG/2 ML INHALATION SOLUTION (PERFOROMIST) INH SCH ×2 (07:23→18:31)
[2020-07-08] MEDS: BUDESONIDE 0.5 MG/2 ML INHALATION SUSPENSION INH SCH ×2 (07:23→18:31)
[2020-07-08] MEDS: APIXABAN 5 MG TAB (ELIQUIS) PO SCH ×2 (09:15→22:01)
[2020-07-08] MEDS: CALCIUM/VITAMIN D 500 MG TAB PO SCH ×3 (09:16→21:50)
[2020-07-08] MEDS: DOCUSATE SODIUM 100 MG CAP PO SCH ×2 (09:16→21:51)
[2020-07-08] MEDS: predniSONE 10 MG TAB PO SCH (09:16)
[2020-07-08] MEDS: guaiFENesin 200 MG TAB PO SCH ×3 (09:17→21:50)
[2020-07-08] MEDS: SPIRONOLACTONE 25 MG TAB PO SCH (09:17)
[2020-07-08] MEDS: PANTOPRAZOLE 40MG TAB (PROTONIX) PO SCH ×2 (09:17→21:51)
[2020-07-08] MEDS: oxyBUTYnin 5 MG TAB PO SCH ×2 (09:17→21:51)
[2020-07-08] MEDS: TORSEMIDE 100 MG TAB PO SCH (09:23)
[2020-07-08] MEDS: REMEDY PHYTOPLEX Z-GUARD PASTE 113GM TUBE (FROM STOREROOM PRODUCT) TOP SCH ×3 (09:25→21:52)
[2020-07-08] MEDS: POLYVINYL ALCOHOL OPHTH SOLN 15 ML(LIQUITEARS) OU SCH ×3 (09:26→21:58)
[2020-07-08] MEDS: VITAMIN B COMPLEX/VIT C CAP PO SCH (10:01)
[2020-07-08] MEDS ORDERED: SODIUM CHLORIDE 0.9% INJ 10 ML SYR IV PRN (13:00)
[2020-07-08 14:00] VITALS: BP 141/64
[2020-07-08] MEDS ORDERED: SODIUM CHLORIDE 0.9% INJ 10 ML SYR IV SCH (18:00)
--- NOTE | 2020-07-08 18:18 | IPNPDOC ---
PM&R Progress Note DATE OF SERVICE: Jul 08, 2020 [employer] Progress Note Subjective: Patient seen sitting in her recliner with ice on her left alfonso stating she thinks she is moving better, had more control over her urine and is apprehensive about how much work it will take to get stronger. REVIEW OF SYSTEMS: The following is a completed review of systems and has been reviewed. Review of systems otherwise unremarkable. PAIN: Patient self reports left anterior alfonso pain EYES: No recent vision changes EARS, NOSE, & THROAT: No throat pain, or dysphagia, or rhinorrhea CARDIOVASCULAR: Denies chest pain or palpitations PULMONARY: +dyspnea on exertion (chronic), cough (chronic) GASTROINTESTINAL: Denies constipation/diarrhea GENITOURINARY: denies dysuria MUSCULOSKELETAL: generalized weakness NEUROLOGICAL:denies paresthesias HEMATOLOGICAL: +easy bruising SKIN: left anterior alfonso hematoma, scattered ecchymosis PSYCHIATRIC: Unremarkable All other review of systems found to be negative. PHYSICAL EXAMINATION: VITAL SIGNS: Please see below. GENERAL: Pleasant and cooperative. No acute distress. HEENT: PERRL. Extraocular movements intact. Clear conjunctiva CARDIOVASCULAR: Regular rate and rhythm. No murmurs, rubs, or gallops LUNGS: Clear to auscultation bilaterally. No wheezes. scattered rhonchi ABDOMEN: Soft, nontender, nondistended. Positive bowel sounds. Normal active bowel sounds NEUROLOGICAL: Alert and oriented times three. Cranial nerves II through XII grossly intact. Sensation grossly intact EXTREMITIES: 5-\5 strength bilateral upper extremities. 5-\5 strength right lower extremity. 5-/5 strength in left lower extremity. +anasarca (improving) SKIN: scattered ecchymosis , left anterior alfonso ecchymosis, sacrum with blanchable erythema ASSESSMENT: 85-year-old F with past medical history of chronic diastolic CHF and COPD who presents status post sepsis due to pneumonia with generalized weakness and gait impairment PLAN: 1. Rehab- PT/OT advance gait and ADLs, strengthen/stretch/maintain ROM all 4limbs, energy conservation, family training 2. Cardiac- hx of chronic diastolic CHF- fluid restrict, daily weights, c/u diuretics, medicine consulted to assist in overall management -Afib with eliquis recently held due to LLE hematoma, restarted on discharge, will monitor Hgb/Hct, c/u diltiazem -HLD c/u statin 3. Resp- hx of COPD with recent hypercapneic respiratory failure, c/u 02 goal 88-92%, nebulizer treatments -c/u steroid taper, s/p course of antibiotics for RUE pneumonia, monitor for worsening infection, Mucinex-stable -BiPAP at night, daughter requesting to leave NC on underneath as patient tends to remove mask at night-have discussed with nursing/respiratory staff and added nursing order to check circuitry q1h over night and call respiratory if unable to correct leakage to avoid morning desaturations and fatigue- respiratory status today overall improved -persistent leukocytosis likely due to steroids 4. GI ppx- protonix 40 BID (increased due to steroid use) 5. DVT ppx- on eliquis for afib, monitor left anterior tibia hematoma (improving) 6. - monitor PVRs- incontinence improved today since starting oxybutynin, UA with 1+ LE and no bacteria, will hold off on treating until cx returns 7. Renal- hx of CKD monitor for ZAKIYA while on diuretics, renal consulted for fluid management 8. Pain- tylenol prn 9. Dispo- TBD Allergies Coded Allergies: No Known Allergies (Unverified , 12/25/18) Vital Signs Vital Signs Date Time Temp Pulse Resp B/P (MAP) Pulse Ox O2 Delivery O2 Flow Rate FiO2 07/08/20 14:00 97.9 85 18 141/64 (89) 93 NIPPV (BIPAP/CPAP) 07/08/20 09:16 2.0 Laboratory Data CBC/BMP Laboratory Tests 07/07/20 21:51 Labs 24H Laboratory Tests 2 07/07/20 21:51: Nucleated Red Blood Cells % (auto) 0.0, Anion Gap 1L, Glomerular Filtration Rate 42.8, Calcium Level 9.6, Ammonia < 10 07/08/20 06:28: Urine Color YELLOW, Urine Appearance HAZY, Urine pH 5.0, Urine Specific [place] 1.012, Urine Protein NEGATIVE, Urine Glucose (UA) NEGATIVE, Urine Ketones NEGATIVE, Urine Blood NEGATIVE, Urine Nitrite NEGATIVE, Urine Bilirubin NEGATIVE, Urine Urobilinogen 0.2, Urine Leukocyte Esterase 1+H, Urine WBC (Auto) 10H, Urine RBC (Auto) 0, Urine Hyaline Casts (Auto) 0, Urine Bacteria (Auto) NEGATIVE, Urine Squamous Epithelial Cells 0, Urine Amorphous Sediment SMALLH, Urine Mucus (Auto) SMALL, Urine Yeast-Like Cells (Auto) SMALLH, Urine Sperm (Auto) 07/08/20 13:07: AX-Frp-[id number]-Type Natriuretic Peptide 1005H Microbiology Microbiology 07/08/20 Urine Culture, Received Pending Current Medications Current Medications Current Medications Medications (Trade) Dose Ordered Sig/Yanet Route PRN Reason Start Time Stop Time Status Last Admin Dose Admin Acetaminophen (Tylenol Tab) 650 mg Q4HP PRN PO fever/MILD PAIN (PS 1-4) 07/05/20 15:30 07/06/20 21:40 Albuterol Sulfate (Proventil Neb) 2.5 mg Q2HP PRN NEB SOB/WHEEZING 07/05/20 15:30 Apixaban (Eliquis) 5 mg BID PO 07/05/20 21:00 07/08/20 09:15 Artificial Tears (Akwa Tears) 2 drop TID OU 07/05/20 16:00 07/08/20 15:48 Atorvastatin Calcium (Lipitor) 40 mg QHS PO 07/05/20 21:00 07/07/20 22:07 Bisacodyl (Dulcolax Suppository) 10 mg DAILYPRN PRN OK CONSTIPATION 07/05/20 15:30 Budesonide (Pulmicort) 0.5 mg RBID INH 07/05/20 20:00 07/08/20 07:23 Calcium/Vitamin D (Oscal D) 500 mg TID PO 07/05/20 16:00 07/08/20 15:48 Diltiazem HCl (Cardizem Cd) 120 mg DAILY PO 07/06/20 09:00 07/08/20 09:24 Docusate Sodium (Colace) 100 mg BID PO 07/05/20 21:00 07/08/20 09:16 Formoterol Fumarate (Perforomist) 20 mcg RBID INH 07/05/20 20:00 07/08/20 07:23 Guaifenesin (Robitussin Tab) 400 mg TID PO 07/05/20 16:00 07/08/20 15:48 Heparin Sodium (Heparin (Flush)) 200 units ASDIRECTED PRN IV SEE LABEL COMMENTS 07/08/20 13:00 Cancel Heparin Sodium (Heparin (Flush)) 200 units PICC IV 07/08/20 18:00 Cancel Oxybutynin Chloride (Ditropan) 5 mg BID PO 07/07/20 21:00 07/08/20 09:17 Pantoprazole Sodium (Protonix) 40 mg BID PO 07/05/20 21:00 07/08/20 09:17 Prednisone (Deltasone) 10 mg DAILY PO 07/06/20 09:00 07/08/20 09:16 Senna (Senokot) 1 tab QHS PO 07/05/20 21:00 07/06/20 20:51 Sodium Chloride (Saline Lock Flush) 10 ml ASDIRECTED PRN IV SEE LABEL COMMENTS 07/08/20 13:00 Cancel Sodium Chloride (Saline Lock Flush) 10 ml PICC IV 07/08/20 18:00 Cancel Spironolactone (Aldactone) 25 mg QAM PO 07/06/20 09:00 07/08/20 09:17 Torsemide (Demadex) 100 mg DAILY PO 07/06/20 09:00 07/08/20 09:23 Vitamin B Complex/ Vitamin C (Therapeutic B Complex w/C) 1 cap DAILY PO 07/06/20 09:00 07/08/20 10:01 DOMINIK STEWARD MD Jul 08, 2020 18:18
[2020-07-08 21:30] VITALS: BP 162/88
[2020-07-08] MEDS: SENNA 8.6 MG TAB (SENOKOT) PO SCH (21:51)
[2020-07-08] MEDS: ATORVASTATIN 20 MG TAB PO SCH (21:51)
[2020-07-09 05:55] VITALS: BP 112/54
--- NOTE | 2020-07-09 06:50 | CR ---
DATE OF CONSULTATION: 07/08/2020 REQUESTING PHYSICIAN: Dr. Sanchez CONSULTING PHYSICIAN: Dr. Rahman REASON FOR CONSULTATION: Fluid and diuretic management in this patient with chronic kidney disease (CKD), stage III. HISTORY OF PRESENT ILLNESS: Jocelyne Silva is an 85-year-old female with past medical history of chronic diastolic congestive heart failure, CKD, stage III, atrial fibrillation, on Eliquis, chronic obstructive pulmonary disease (COPD), on home oxygen, type 2 diabetes mellitus, obesity, pulmonary hypertension, and other comorbid conditions mentioned below. She was admitted to [facility] on June 26 with hypercapnic respiratory failure and right upper lobe pneumonia and sepsis and treated with intravenous (IV) antibiotics and bilevel positive airway pressure (BiPAP) and prednisone taper. Patient also developed a lower extremity hematoma, and her anticoagulation was held. She clinically improved, however, continued to require assistance with activities of daily living and was deemed medically appropriate for discharge to the acute rehabilitation unit on July 05. She is seen this morning in the rehabilitation unit, and she complains of bilateral lower extremity edema, although she notes that the leg swelling has been going down the past few days. She denies dyspnea with exertion and with her physical therapy. She was diuresed on the inpatient side and is now back on oral diuretic regimen. MEDICAL HISTORY: 1. Diastolic congestive heart failure. 2. Cor pulmonale. 3. CKD, stage III. 4. Aortic valve sclerosis. 5. Pulmonary hypertension. 6. COPD, on home oxygen. 7. Atrial fibrillation, on Eliquis. 8. Type 2 diabetes mellitus. 9. Obesity. 10. Chronic venous insufficiency. SURGICAL HISTORY: As mentioned above. SOCIAL HISTORY: Ex-smoker. FAMILY HISTORY: She denies family history of kidney failure. ALLERGIES: No known drug allergies. HOME MEDICATIONS: Reviewed and include: - Eliquis 5 mg by mouth twice a day - Lipitor 40 mg by mouth every night - budesonide 0.5 mg by mouth twice a day - calcium plus vitamin D one tablet by mouth daily - diltiazem 120 mg by mouth daily - docusate 100 mg by mouth twice a day - formoterol 20 mcg by mouth twice a day - guaifenesin 600 mg by mouth twice a day - Protonix 40 mg by mouth in the morning - spironolactone 25 mg by mouth daily - torsemide 100 mg by mouth daily - Incruse Ellipta one puff inhaled daily - vitamin B complex one tablet by mouth daily - prednisone 10 mg by mouth daily REVIEW OF SYSTEMS: CONSTITUTIONAL: Denies fevers or chills. EYES: Denies visual changes or tearing. ENT: Denies sore throat or tinnitus. CARDIAC: Has a history of atrial fibrillation with diastolic congestive heart failure. Complains of leg edema. RESPIRATORY: Has COPD and oxygen dependent. GASTROINTESTINAL: Denies nausea, vomiting, diarrhea. ENDOCRINE: Reports diabetes mellitus. MUSCULOSKELETAL: Reports debility and is requiring rehabilitation. HEMATOLOGIC: Reports long-term anticoagulant use and easy bruising. NEUROLOGIC: Denies seizure or syncope. SKIN: Reports scattered ecchymosis. Denies pruritus. Remainder of review of systems is negative or as per history of present illness (HPI). VITAL SIGNS: Temperature 97.8, pulse 60, respiratory rate 18, blood pressure 136/84, saturating 95% on continuous positive airway pressure (CPAP). Intake yesterday was not fully recorded. There were six urinary voids and two bowel movements recorded. Weight in the bed scale today is 78.8 kg. GENERAL: Patient is seen sitting in the recliner with the legs elevated. Elderly female, awake, alert, oriented, interactive, conversational in no apparent distress. Has CPAP mask in place. Extraocular muscles are intact. The oral mucosa could not be examined. Neck is supple. Jugular veins are mildly elevated. HEART: Sounds are regular. There is a systolic murmur. There is 1+ leg edema, more so in the left lower extremity. There are wrappings from the ankle to the knee. ABDOMEN: Soft and nontender. There are bowel sounds. EXTREMITIES: Show leg edema with dressings and bruising. NEUROLOGIC: She is awake, alert, interactive, and conversational. LABORATORY DATA: White count 15.3, hemoglobin 10.8, platelets 208. Sodium 138, potassium 4.0, bicarbonate 43, BUN 25, creatinine 1.2. Urine culture pending. Chest x-ray July 07 shows no pleural effusions. INPATIENT MEDICATIONS: Tylenol as needed - Eliquis 5 mg by mouth twice a day - atorvastatin 40 mg twice a day every night - Pulmicort twice a day - Os-Brian plus D 500 three times a day - diltiazem 120 mg by mouth daily - docusate 100 mg by mouth twice a day - Robitussin 400 mg by mouth three times a day - Perforomist 20 mcg inhaled twice a day - oxybutynin 5 mg by mouth twice a day - Protonix 40 mg by mouth twice a day - prednisone 10 mg by mouth daily - senna one tablet by mouth every night - spironolactone 25 mg in the morning - torsemide 100 mg by mouth daily - vitamin B complex once daily PROBLEMS: 1. Diastolic congestive heart failure. Patient appears with mild fluid overload with peripheral edema; however, she tells me that the leg swelling has been going down the past few days. Chest x-ray is negative for any pulmonary edema or pleural effusions. She was receiving intravenous (IV) diuretics while she was on the medical side of the hospital and now has been transitioned over to an oral diuretic regimen of spironolactone and torsemide and is on an 1800 mL fluid restriction. Continue current diuretic regimen and continue to monitor intake, output, and daily weights. No changes are being made to the diuretics today. 2. Chronic kidney disease (CKD), stage III. Renal function is stable at the patient's usual baseline, and she is tolerating the current combination diuretic regimen well. She still has some peripheral edema, but as per patient it has been improving. Continue torsemide and spironolactone. Would keep off of angiotensin-converting enzyme (NASIR) or angiotensin-receptor hector (ARB). 3. Hypertension. Blood pressures are well controlled with diltiazem, spironolactone, and torsemide. 4. Chronic metabolic alkalosis. It is due to her chronic obstructive pulmonary disease (COPD) and respiratory acidosis. No change is being made to the diuretics. Thank you for involving me in the care of Ms. Silva. I will be happy to follow her along with you. ADEEL
[2020-07-09 07:01] LABS: BASO % 0.2 % (0.0-1.0); EOS # 0.2 10^3/uL (0.0-0.5); EOS % 1.4 % (0.0-3.0); HEMATOCRIT 36.9 % (36.0-47.0); HEMOGLOBIN 11.3 g/dl (12.0-15.5); LYMPH # 2.7 10^3/uL (1.5-5.0); LYMPH % 17.8 % (24.0-44.0); MEAN CORPUSCULAR HEMOGLOBIN 28.6 pg (27.0-33.0); MEAN CORPUSCULAR HGB CONC 30.6 g/dl (32.0-36.5); MEAN CORPUSCULAR VOLUME 93.4 fl (80.0-96.0); MONO # 0.9 10^3/uL (0.0-0.8); MONO % 5.8 % (0.0-5.0); NEUTROPHILS # 11.1 10^3/uL (1.5-8.5); NEUTROPHILS % 74.4 % (36.0-66.0); PLATELET COUNT, AUTOMATED 212 10^3/uL (150-450); RED BLOOD COUNT 3.95 10^6/uL (4.00-5.40); WHITE BLOOD COUNT 14.9 10^3/uL (4.0-10.0)
[2020-07-09] MEDS: BUDESONIDE 0.5 MG/2 ML INHALATION SUSPENSION INH SCH ×2 (07:11→20:28)
[2020-07-09] MEDS: FORMOTEROL FUMARATE 20 MCG/2 ML INHALATION SOLUTION (PERFOROMIST) INH SCH ×2 (07:11→20:28)
[2020-07-09 07:37] LABS: CALCIUM LEVEL 9.3 MG/DL (8.8-10.2); CREATININE FOR GFR 1.39 MG/DL (0.55-1.30); GLOMERULAR FILTRATION RATE 38.5 (>32); POTASSIUM SERUM 3.4 MEQ/L (3.5-5.1)
[2020-07-09] MEDS: CALCIUM/VITAMIN D 500 MG TAB PO SCH ×3 (09:52→20:50)
[2020-07-09] MEDS: DOCUSATE SODIUM 100 MG CAP PO SCH ×2 (09:52→20:50)
[2020-07-09] MEDS: PANTOPRAZOLE 40MG TAB (PROTONIX) PO SCH ×2 (09:52→20:50)
[2020-07-09] MEDS: guaiFENesin 200 MG TAB PO SCH ×3 (09:52→20:50)
[2020-07-09] MEDS: oxyBUTYnin 5 MG TAB PO SCH ×2 (09:52→20:50)
[2020-07-09] MEDS: APIXABAN 5 MG TAB (ELIQUIS) PO SCH ×2 (09:52→20:50)
[2020-07-09] MEDS: TORSEMIDE 100 MG TAB PO SCH (09:53)
[2020-07-09] MEDS: VITAMIN B COMPLEX/VIT C CAP PO SCH (09:54)
[2020-07-09] MEDS: REMEDY PHYTOPLEX Z-GUARD PASTE 113GM TUBE (FROM STOREROOM PRODUCT) TOP SCH ×3 (09:54→20:52)
[2020-07-09] MEDS: predniSONE 10 MG TAB PO SCH (09:54)
[2020-07-09] MEDS: POLYVINYL ALCOHOL OPHTH SOLN 15 ML(LIQUITEARS) OU SCH ×3 (09:54→20:52)
[2020-07-09] MEDS: SPIRONOLACTONE 25 MG TAB PO SCH (09:57)
[2020-07-09 13:56] LABS: MAGNESIUM LEVEL 2.3 MG/DL (1.8-2.4)
[2020-07-09 14:00] VITALS: BP 134/71
[2020-07-09 20:00] VITALS: BP 116/76
[2020-07-09] MEDS: ATORVASTATIN 20 MG TAB PO SCH (20:50)
[2020-07-09] MEDS: SENNA 8.6 MG TAB (SENOKOT) PO SCH (20:50)
[2020-07-09] MEDS: ACETAMINOPHEN TAB 650MG DOSE (2X325MG) PO PRN (20:51)
[2020-07-10 06:13] VITALS: BP 133/70
[2020-07-10] MEDS: BUDESONIDE 0.5 MG/2 ML INHALATION SUSPENSION INH SCH ×2 (07:35→20:31)
[2020-07-10] MEDS: FORMOTEROL FUMARATE 20 MCG/2 ML INHALATION SOLUTION (PERFOROMIST) INH SCH ×2 (07:35→20:31)
[2020-07-10] MEDS: PANTOPRAZOLE 40MG TAB (PROTONIX) PO SCH ×2 (07:37→20:50)
[2020-07-10] MEDS: APIXABAN 5 MG TAB (ELIQUIS) PO SCH ×2 (07:37→20:50)
[2020-07-10] MEDS: POTASSIUM CHLORIDE 10 MEQ SR TABLET PO SCH (07:37)
[2020-07-10] MEDS: guaiFENesin 200 MG TAB PO SCH ×3 (07:37→20:50)
[2020-07-10 07:38] VITALS: O2SAT 96
[2020-07-10] MEDS: TORSEMIDE 100 MG TAB PO SCH (07:38)
[2020-07-10] MEDS: DOCUSATE SODIUM 100 MG CAP PO SCH ×2 (07:38→20:50)
[2020-07-10] MEDS: VITAMIN B COMPLEX/VIT C CAP PO SCH (07:38)
[2020-07-10] MEDS: predniSONE 10 MG TAB PO SCH (07:38)
[2020-07-10] MEDS: SPIRONOLACTONE 25 MG TAB PO SCH (07:38)
[2020-07-10] MEDS: CALCIUM/VITAMIN D 500 MG TAB PO SCH ×3 (07:38→20:50)
[2020-07-10] MEDS: REMEDY PHYTOPLEX Z-GUARD PASTE 113GM TUBE (FROM STOREROOM PRODUCT) TOP SCH ×3 (07:39→20:51)
[2020-07-10] MEDS: oxyBUTYnin 5 MG TAB PO SCH ×2 (07:39→20:50)
[2020-07-10] MEDS: POLYVINYL ALCOHOL OPHTH SOLN 15 ML(LIQUITEARS) OU SCH ×3 (07:40→20:51)
[2020-07-10 14:00] VITALS: BP 124/59
[2020-07-10 20:00] VITALS: BP 142/69
[2020-07-10] MEDS: SENNA 8.6 MG TAB (SENOKOT) PO SCH (20:50)
[2020-07-10] MEDS: ATORVASTATIN 20 MG TAB PO SCH (20:50)
[2020-07-10] MEDS: ACETAMINOPHEN TAB 650MG DOSE (2X325MG) PO PRN (20:51)
[2020-07-11 06:01] VITALS: BP 151/70
[2020-07-11 06:46] LABS: CALCIUM LEVEL 9.2 MG/DL (8.8-10.2); CREATININE FOR GFR 1.43 MG/DL (0.55-1.30); GLOMERULAR FILTRATION RATE 37.3 (>32); POTASSIUM SERUM 3.9 MEQ/L (3.5-5.1)
[2020-07-11] MEDS: FORMOTEROL FUMARATE 20 MCG/2 ML INHALATION SOLUTION (PERFOROMIST) INH SCH ×2 (07:52→19:52)
[2020-07-11] MEDS: BUDESONIDE 0.5 MG/2 ML INHALATION SUSPENSION INH SCH ×2 (07:52→19:52)
[2020-07-11] MEDS: DOCUSATE SODIUM 100 MG CAP PO SCH ×2 (09:00→20:22)
[2020-07-11] MEDS: CALCIUM/VITAMIN D 500 MG TAB PO SCH ×3 (09:02→20:22)
[2020-07-11] MEDS: guaiFENesin 200 MG TAB PO SCH ×3 (09:02→20:22)
[2020-07-11] MEDS: PANTOPRAZOLE 40MG TAB (PROTONIX) PO SCH ×2 (09:02→20:22)
[2020-07-11] MEDS: SPIRONOLACTONE 25 MG TAB PO SCH (09:02)
[2020-07-11] MEDS: POTASSIUM CHLORIDE 10 MEQ SR TABLET PO SCH (09:02)
[2020-07-11] MEDS: predniSONE 10 MG TAB PO SCH (09:03)
[2020-07-11] MEDS: VITAMIN B COMPLEX/VIT C CAP PO SCH (09:03)
[2020-07-11] MEDS: TORSEMIDE 100 MG TAB PO SCH (09:03)
[2020-07-11] MEDS: POLYVINYL ALCOHOL OPHTH SOLN 15 ML(LIQUITEARS) OU SCH ×3 (09:04→20:24)
[2020-07-11] MEDS: APIXABAN 5 MG TAB (ELIQUIS) PO SCH ×2 (09:04→20:22)
[2020-07-11] MEDS: oxyBUTYnin 5 MG TAB PO SCH ×2 (09:04→20:23)
[2020-07-11] MEDS: REMEDY PHYTOPLEX Z-GUARD PASTE 113GM TUBE (FROM STOREROOM PRODUCT) TOP SCH ×3 (09:04→20:24)
[2020-07-11 14:00] VITALS: BP 137/71
--- NOTE | 2020-07-11 14:52 | IPN ---
DATE: 07/09/2020. SUBJECTIVE: Jocelyne is seen and examined this morning at the bedside in the acute rehabilitation unit. She reports that physical therapy is going well. She is using BiPAP at night and denies shortness of breath with her therapy. PHYSICAL EXAMINATION: VITAL SIGNS: Temperature 97.4, pulse 76, respiratory rate 18, blood pressure 112/54, saturating 92 to 97% on BiPAP. Intake yesterday was not fully recorded. There were two voids recorded yesterday and three voids recorded today. Weight in the bed scale today is 73.9 kg. GENERAL: Patient is seen sitting in the recliner with the legs elevated. Elderly female, awake, alert, oriented x3, interactive, conversational, in no apparent distress. HEENT: Extraocular muscles are intact. Tongue is moist. NECK: Supple. Jugular veins are mildly elevated. HEART: Sounds are regular. There is +1 leg edema; more so in the left lower extremity. There are wrappings present from the ankle to the knee. SKIN: Shows scattered ecchymosis on the extremities and on the chest. ABDOMEN: Soft, obese and nontender. EXTREMITIES: Show dressings from the ankle to the knee with around 1+ edema below the dressing and pedal edema as well. NEUROLOGIC: She is awake, alert, interactive and conversational. LABORATORY DATA: White count 14.9, hemoglobin 11.3, platelets 212,000. Sodium 139, potassium 3.4, bicarbonate 42, BUN 26, creatinine 1.3. BNP 1000. INPATIENT MEDICATIONS: I started the patient on potassium chloride 20 mEq p.o. daily. The remainder of the medications are unchanged from prior. PROBLEMS: 1. Mild exacerbation of diastolic congestive heart failure: Patient is in mild fluid overload with 1+ peripheral edema. Daily weights are significantly variable and likely inaccurate. Chest x-ray was negative for any effusion or edema. She received intravenous diuretics while on the medical side of the hospital and now is on oral Torsemide and Spironolactone and 1800 cc fluid restriction. She has become mildly hypokalemic and I am adding a potassium supplement. 2. CKD Stage 3: There is a slight bump up in serum creatinine to 1.3 today, but I am keeping the patient on the same regimen of Torsemide 100 mg p.o. daily and Spironolactone 25 mg in the morning for adequate control of her volume status. Please keep her off of NASIR or ARB at this time. 3. Hypokalemia secondary to diuretic use: Potassium chloride 20 mEq p.o. daily is being added and I am checking a magnesium level. 4. Chronic metabolic alkalosis: It is in compensation of respiratory acidosis related to her longstanding COPD. 5. Hypertension: Blood pressures are well controlled with current regiment of Diltiazem plus combination diuretics. MTDD
--- NOTE | 2020-07-11 14:53 | IPN ---
DATE: 07/10/2020 SUBJECTIVE: Mrs. Silva is seen this morning on her bedside. She is sitting in the recliner chair with her legs elevated. She is quite hard of hearing and I had some difficulty communicating with her. She denies any dyspnea or chest pain. She has been on home oxygen 2 liters and continues with the same. She has no fever or chills. Her left leg is in dressing and compression stocking. Right leg has no edema. PHYSICAL EXAMINATION: VITAL SIGNS: Temperature 97.7 degree Fahrenheit, heart rate 82 per minute, respiratory rate 16 per minute, blood pressure 133/70 mmHg and oxygen saturation 96% on 2 liter oxygen. HEENT: Head atraumatic. NECK: Supple. JVD difficult to be assessed. HEART: Sounds are regular. LUNGS: Lungs with slightly diminished breath sounds. ABDOMEN: Soft and nontender. Bowel sounds are normal. EXTREMITIES: Without any edema on the right leg. She has dressing and stocking on her left leg. She has no cyanosis or clubbing. NEUROLOGIC: She is awake and quite hard of hearing. LABORATORY DATA: Patient did not have any new labs done today. Yesterday, her sodium was 139 and potassium 3.4. BUN 26 and creatinine 1.39. PROBLEMS: 1. Acute kidney injury: Patient did have slight worsening of kidney function. We will check her renal profile tomorrow. Her volume status seems clinically reasonably well compensated. She has chronic hypoxemia due to COPD and has been on home oxygen. I will consider to cut down her Torsemide dose after reviewing her labs tomorrow morning. 2. Congestive heart failure: I feel that clinically patient is very well compensated. We will see how her labs come back tomorrow and then make a decision about adjustment in her diuretic dose. 3. Hypokalemia: Her potassium was 3.4 yesterday and she did receive potassium supplement. She is also on Spironolactone. Electrolytes will be checked again tomorrow morning. 4. Atrial fibrillation: Her ventricular rate is very well controlled. Her anticoagulation is on hold due to left leg hematoma. [facility]
[2020-07-11 20:00] VITALS: BP 162/84
[2020-07-11] MEDS: SENNA 8.6 MG TAB (SENOKOT) PO SCH (20:22)
[2020-07-11] MEDS: ATORVASTATIN 20 MG TAB PO SCH (20:23)
[2020-07-11] MEDS: ACETAMINOPHEN TAB 650MG DOSE (2X325MG) PO PRN (20:23)
[2020-07-12 06:00] VITALS: BP 132/78
[2020-07-12] MEDS: FORMOTEROL FUMARATE 20 MCG/2 ML INHALATION SOLUTION (PERFOROMIST) INH SCH ×2 (06:13→20:00)
[2020-07-12] MEDS: BUDESONIDE 0.5 MG/2 ML INHALATION SUSPENSION INH SCH ×2 (06:13→20:00)
--- NOTE | 2020-07-12 08:06 | IPN ---
DATE: 07/11/2020 SUBJECTIVE: Mrs. Silva is seen this morning on her bedside. Nursing staff just finished cleaning her, and reports that patient is not feeling well today. Apparently she is more lethargic and tired. She did not want to be bothered by the nursing staff. Yesterday when I saw her, she was in the recliner chair and fully alert and able to have a conversation. Today, she is just lying with her eyes closed and did not want to talk. PHYSICAL EXAMINATION: VITAL SIGNS: Temperature 98 degree Fahrenheit, heart rate 87 per minute, respiratory rate 17 per minute, blood pressure 151/70 mmHg and oxygen saturation 90% on 3 liter oxygen. HEENT: Head atraumatic. NECK: Supple. JVD is just barely visible on the clavicle. HEART: Sounds are irregular. LUNGS: Slightly diminished breath sounds with poor inspiratory effort. ABDOMEN: Soft and nontender. EXTREMITIES: Without any cyanosis or clubbing. Left leg dressing and compression stocking is present. There is no edema on the right leg. LABORATORY DATA: Todays labs show sodium 142, potassium 3.9, BUN 26, creatinine 1.43. Glucose 85 and calcium 9.2. PROBLEMS: 1. Acute kidney injury superimposed on chronic kidney disease: No change in kidney function since July 09. Electrolytes are stable. 2. Hypokalemia: Her potassium level has corrected and does not need any further intervention at present. 3. Congestive heart failure: Her volume status clinically well compensated and current diuretics will be continued. No changes are being made today. 4. Altered mentation: She is lethargic today and just does not want to talk. I will defer any evaluation to her primary care team. ADEEL
[2020-07-12] MEDS: DOCUSATE SODIUM 100 MG CAP PO SCH ×2 (08:44→21:43)
[2020-07-12] MEDS: oxyBUTYnin 5 MG TAB PO SCH ×2 (08:44→21:43)
[2020-07-12] MEDS: APIXABAN 5 MG TAB (ELIQUIS) PO SCH ×2 (08:44→21:43)
[2020-07-12] MEDS: VITAMIN B COMPLEX/VIT C CAP PO SCH (08:44)
[2020-07-12] MEDS: TORSEMIDE 100 MG TAB PO SCH (08:44)
[2020-07-12] MEDS: CALCIUM/VITAMIN D 500 MG TAB PO SCH ×3 (08:44→21:43)
[2020-07-12] MEDS: SPIRONOLACTONE 25 MG TAB PO SCH (08:44)
[2020-07-12] MEDS: guaiFENesin 200 MG TAB PO SCH ×3 (08:44→21:43)
[2020-07-12] MEDS: predniSONE 10 MG TAB PO SCH (08:44)
[2020-07-12] MEDS: PANTOPRAZOLE 40MG TAB (PROTONIX) PO SCH ×2 (08:44→21:43)
[2020-07-12] MEDS: REMEDY PHYTOPLEX Z-GUARD PASTE 113GM TUBE (FROM STOREROOM PRODUCT) TOP SCH ×3 (08:45→21:44)
[2020-07-12] MEDS: POTASSIUM CHLORIDE 10 MEQ SR TABLET PO SCH (08:45)
[2020-07-12] MEDS: POLYVINYL ALCOHOL OPHTH SOLN 15 ML(LIQUITEARS) OU SCH ×3 (08:46→21:44)
[2020-07-12 14:00] VITALS: BP 109/60
[2020-07-12 21:30] VITALS: BP 168/78
[2020-07-12] MEDS: SENNA 8.6 MG TAB (SENOKOT) PO SCH (21:43)
[2020-07-12] MEDS: ATORVASTATIN 20 MG TAB PO SCH (21:43)
[2020-07-13 05:32] VITALS: BP 122/48
[2020-07-13 07:08] LABS: CALCIUM LEVEL 9.2 MG/DL (8.8-10.2); CREATININE FOR GFR 1.38 MG/DL (0.55-1.30); GLOMERULAR FILTRATION RATE 38.9 (>32); POTASSIUM SERUM 3.9 MEQ/L (3.5-5.1)
[2020-07-13] MEDS: VITAMIN B COMPLEX/VIT C CAP PO SCH (07:56)
[2020-07-13] MEDS: CALCIUM/VITAMIN D 500 MG TAB PO SCH ×3 (07:56→20:19)
[2020-07-13] MEDS: PANTOPRAZOLE 40MG TAB (PROTONIX) PO SCH ×2 (07:56→20:19)
[2020-07-13] MEDS: guaiFENesin 200 MG TAB PO SCH ×3 (07:56→20:19)
[2020-07-13] MEDS: oxyBUTYnin 5 MG TAB PO SCH ×2 (07:56→20:19)
[2020-07-13] MEDS: APIXABAN 5 MG TAB (ELIQUIS) PO SCH ×2 (07:57→22:01)
[2020-07-13] MEDS: POTASSIUM CHLORIDE 10 MEQ SR TABLET PO SCH (07:58)
[2020-07-13] MEDS: SPIRONOLACTONE 25 MG TAB PO SCH (07:58)
[2020-07-13] MEDS: predniSONE 10 MG TAB PO SCH (07:58)
[2020-07-13] MEDS: POLYVINYL ALCOHOL OPHTH SOLN 15 ML(LIQUITEARS) OU SCH ×3 (07:59→20:18)
[2020-07-13] MEDS: REMEDY PHYTOPLEX Z-GUARD PASTE 113GM TUBE (FROM STOREROOM PRODUCT) TOP SCH ×3 (07:59→20:20)
[2020-07-13] MEDS: TORSEMIDE 100 MG TAB PO SCH (07:59)
[2020-07-13] MEDS: DOCUSATE SODIUM 100 MG CAP PO SCH ×2 (08:00→20:19)
[2020-07-13] MEDS: FORMOTEROL FUMARATE 20 MCG/2 ML INHALATION SOLUTION (PERFOROMIST) INH SCH ×2 (08:03→20:52)
[2020-07-13] MEDS: BUDESONIDE 0.5 MG/2 ML INHALATION SUSPENSION INH SCH ×2 (08:03→20:52)
--- NOTE | 2020-07-13 08:22 | IPN ---
DATE: 07/12/2020 SUBJECTIVE: Mrs. Silva is seen this morning at her bedside. She is sitting in the recliner chair today and feels better. She has chronic dyspnea and remains on nasal cannula oxygen. She denies any fever, chills, nausea, vomiting, or abdominal pain. PHYSICAL EXAMINATION: VITAL SIGNS: Temperature is 97 degrees Fahrenheit, heart rate is 74 per minute and respiratory rate is 18 per minute. Blood pressure is 132/78 mmHg and oxygen saturation 96% on 2 liters oxygen. HEAD: Atraumatic. NECK: Supple. JVD difficult to be assessed. HEART: Heart sounds are regular. LUNGS: Diminished breath sounds and a few basilar rhonchi. ABDOMEN: Soft and nontender. Bowel sounds are normal. EXTREMITIES: Without any cyanosis or clubbing. She has no edema on her right leg and left leg has a hematoma. She is wearing compression stockings and has a dressing on her left lower leg. NEUROLOGIC: She is awake and is able to have a conversation today. LABS: She did not have any new labs today. PROBLEMS: 1. Acute kidney injury superimposed on chronic kidney disease. BMP will be checked tomorrow. Patient has no uremic symptoms. 2. Congestive heart failure, volume status is clinically well-compensated. We will continue with current diuretic regimen. 3. Anemia. Her anemia is mild and stable and does not need any urgent intervention at present. ADEEL
[2020-07-13 09:14] LABS: ALBUMIN 2.8 GM/DL (3.2-5.2); BILIRUBIN,TOTAL 0.5 MG/DL (0.2-1.0); TOTAL PROTEIN 5.8 GM/DL (6.4-8.2)
[2020-07-13 09:16] LABS: BASO % 0.3 % (0.0-1.0); EOS # 0.2 10^3/uL (0.0-0.5); EOS % 2.1 % (0.0-3.0); HEMATOCRIT 36.1 % (36.0-47.0); HEMOGLOBIN 10.6 g/dl (12.0-15.5); LYMPH # 1.7 10^3/uL (1.5-5.0); LYMPH % 14.9 % (24.0-44.0); MEAN CORPUSCULAR HEMOGLOBIN 27.7 pg (27.0-33.0); MEAN CORPUSCULAR HGB CONC 29.4 g/dl (32.0-36.5); MEAN CORPUSCULAR VOLUME 94.5 fl (80.0-96.0); MONO # 0.7 10^3/uL (0.0-0.8); MONO % 5.6 % (0.0-5.0); NEUTROPHILS # 8.9 10^3/uL (1.5-8.5); NEUTROPHILS % 76.4 % (36.0-66.0); PLATELET COUNT, AUTOMATED 193 10^3/uL (150-450); RED BLOOD COUNT 3.82 10^6/uL (4.00-5.40); WHITE BLOOD COUNT 11.6 10^3/uL (4.0-10.0)
[2020-07-13 14:00] VITALS: BP 131/68
--- NOTE | 2020-07-13 14:39 | IPNPDOC ---
PM&R Progress Note DATE OF SERVICE: Jul 13, 2020 [employer] Progress Note DATE OF ADMISSION: Jul 05, 2020 at 18:30 DATE OF SERVICE: Jul INPATIENT REHABILITATION ADMISSION DAY: #8 SUBJECTIVE: Patient is a 89-oepe-geo-lady with past medical history of chronic diastolic CHF and COPD who presents status post sepsis due to pneumonia with generalized weakness and gait impairment , contusion, left anterior tibial region with surrounding erythema, possible cellulitis and/or underlying emerging osteomyelitis. Patient noted earlier this morning for tachypneic R>30, purse lip breathing in mild distress on 2 L. Pulse oximeter noted for low 90s. Left alfonso pain and discomfort noted. She is able to follow one-step commands however with difficulty due to mild distress. Functionally, she is currently noted to require moderate assistance and handling 15 feet ability to participate up straight due to level of shortness of breath and fatigue. Patient discussed in team meeting. REVIEW OF SYSTEMS: The following is a completed review of systems and has been reviewed. Review of systems otherwise unremarkable. PAIN: Patient self reports left anterior alfonso pain EYES: No recent vision changes EARS, NOSE, & THROAT: No throat pain, or dysphagia, or rhinorrhea CARDIOVASCULAR: Denies chest pain or palpitations PULMONARY: +dyspnea on exertion (chronic), cough (chronic) GASTROINTESTINAL: Denies constipation/diarrhea GENITOURINARY: denies dysuria MUSCULOSKELETAL: generalized weakness NEUROLOGICAL:denies paresthesias HEMATOLOGICAL: +easy bruising SKIN: left anterior alfonso hematoma, scattered ecchymosis PSYCHIATRIC: Anxiety noted related to dyspnea PHYSICAL EXAMINATION: VITAL SIGNS: Please see below. GENERAL: Mild distress. HEENT: PERRL. Extraocular movements intact. Clear conjunctiva CARDIOVASCULAR: Regular rate and rhythm. LUNGS: Scattered wheezes and rhonchi ABDOMEN: Soft, nontender, obese ,positive bowel sounds. Normal active bowel sounds NEUROLOGICAL:. Cranial nerves II through XII grossly intact. Sensation grossly intact EXTREMITIES: 5-\5 strength bilateral upper extremities. 5-\5 strength right lower extremity. 5-/5 strength in left lower extremity. +anasarca (reportedly improving) SKIN: scattered ecchymosis , left anterior alfonso ecchymosis with a large mid tibial anterior swelling. Large eschar with central cratering and surrounding erythema . Flocculence tenderness, reported sacrum with blanchable erythema. ASSESSMENT: 85-year-old F with past medical history of chronic diastolic CHF and COPD who presents status post sepsis due to pneumonia with generalized weakness and gait impairment , contusion, left anterior tibial region with surrounding erythema, possible cellulitis and/or underlying emerging osteomyelitis. LABORATORY DATA: Reviewed. Please see below. MICROBIOLOGY: Please see below. IMAGING: report pending for repeat L tibial views, soft tissue noted, chest xray pending. PLAN: 1. Rehab- PT/OT advance gait and ADLs, strengthen/stretch/maintain ROM all 4limbs, energy conservation, family training 2. Cardiac- hx of chronic diastolic CHF- fluid restrict, daily weights, c/u diuretics, medicine consulted to assist in overall management, seems to be having greater respiratory challenges. -Afib with eliquis recently held due to LLE hematoma, restarted on discharge, will monitor Hgb/Hct, c/u diltiazem , holding steady -HLD c/u statin 3. Resp- hx of COPD with recent hypercapneic respiratory failure, c/u 02 goal 88-92%, nebulizer treatments , has become symptomatic, and at times requires bumping up to 3L, particularly during exertional activities. - s/p steroids, course of antibiotics for RUE pneumonia, monitor for worsening i nfection, Mucinex-stable -BiPAP at night, daughter requesting to leave NC on underneath as patient tends to remove mask at night-probably some problems with positioning, nursing, working on this. 4. GI ppx- protonix 40 BID (increased due to steroid use) 5. DVT ppx- on eliquis for afib, monitor left anterior tibia hematoma 6. - monitor PVRs- incontinence improved today since starting oxybutynin, UA with 1+ LE and no bacteria, will hold off on treating until cx returns 7. Renal- hx of CKD monitor for ZAKIYA while on diuretics, renal consulted for fluid management 8. Pain- tylenol prn requested x-ray to reassess left lower extremity hematoma, rule out underlying emerging osteomyelitis 9. Dispo- TBD TIME SPENT: Chart Review, examination, care coordination and documentation 45 mi nutes. Allergies Coded Allergies: No Known Allergies (Unverified , 12/25/18) Vital Signs Vital Signs Date Time Temp Pulse Resp B/P (MAP) Pulse Ox O2 Delivery O2 Flow Rate FiO2 07/13/20 08:00 2.0 07/13/20 07:57 80 120/50 07/13/20 05:32 97.0 20 95 Nasal Cannula Laboratory Data CBC/BMP Laboratory Tests 07/13/20 06:00 Labs 24H Laboratory Tests 2 07/13/20 06:00: Immature Granulocyte % (Auto) 0.7, Neutrophils (%) (Auto) 76.4H, Lymphocytes (%) (Auto) 14.9L, Monocytes (%) (Auto) 5.6H, Eosinophils (%) (Auto) 2.1, Basophils (%) (Auto) 0.3, Neutrophils # (Auto) 8.9H, Lymphocytes # (Auto) 1.7, Monocytes # (Auto) 0.7, Eosinophils # (Auto) 0.2, Basophils # (Auto) 0.0, Nucleated Red Blood Cells % (auto) 0.0, Anion Gap 2L, Glomerular Filtration Rate 38.9, Calcium Level 9.2, Total Bilirubin 0.5, Aspartate Amino Transf (AST/SGOT) 33, Alanine Aminotransferase (ALT/SGPT) 24, Alkaline Phosphatase 108, Total Protein 5.8L, Albumin 2.8L, Albumin/Globulin Ratio 0.9L Microbiology Microbiology 07/08/20 Urine Culture - Final, Complete Current Medications Current Medications Current Medications Medications (Trade) Dose Ordered Sig/Yanet Route PRN Reason Start Time Stop Time Status Last Admin Dose Admin Acetaminophen (Tylenol Tab) 650 mg Q4HP PRN PO fever/MILD PAIN (PS 1-4) 07/05/20 15:30 07/11/20 20:23 Albuterol Sulfate (Proventil Neb) 2.5 mg Q2HP PRN NEB SOB/WHEEZING 07/05/20 15:30 Apixaban (Eliquis) 5 mg BID PO 07/05/20 21:00 07/13/20 07:57 Artificial Tears (Akwa Tears) 2 drop TID OU 07/05/20 16:00 07/13/20 07:59 Atorvastatin Calcium (Lipitor) 40 mg QHS PO 07/05/20 21:00 07/12/20 21:43 Bisacodyl (Dulcolax Suppository) 10 mg DAILYPRN PRN [place] CONSTIPATION 07/05/20 15:30 Budesonide (Pulmicort) 0.5 mg RBID INH 07/05/20 20:00 07/13/20 08:03 Calcium/Vitamin D (Oscal D) 500 mg TID PO 07/05/20 16:00 07/13/20 07:56 Diltiazem HCl (Cardizem Cd) 120 mg DAILY PO 07/06/20 09:00 07/13/20 07:57 Docusate Sodium (Colace) 100 mg BID PO 07/05/20 21:00 07/13/20 08:00 Formoterol Fumarate (Perforomist) 20 mcg RBID INH 07/05/20 20:00 07/13/20 08:03 Guaifenesin (Robitussin Tab) 400 mg TID PO 07/05/20 16:00 07/13/20 07:56 Heparin Sodium (Heparin (Flush)) 200 units ASDIRECTED PRN IV SEE LABEL COMMENTS 07/08/20 13:00 Cancel Heparin Sodium (Heparin (Flush)) 200 units PICC IV 07/08/20 18:00 Cancel Oxybutynin Chloride (Ditropan) 5 mg BID PO 07/07/20 21:00 07/13/20 07:56 Pantoprazole Sodium (Protonix) 40 mg BID PO 07/05/20 21:00 07/13/20 07:56 Potassium Chloride (Micro-K Extencaps) 20 meq DAILY PO 07/10/20 09:00 07/13/20 07:58 Prednisone (Deltasone) 10 mg DAILY PO 07/06/20 09:00 07/13/20 07:58 Senna (Senokot) 1 tab QHS PO 07/05/20 21:00 07/12/20 21:43 Sodium Chloride (Saline Lock Flush) 10 ml ASDIRECTED PRN IV SEE LABEL COMMENTS 07/08/20 13:00 Cancel Sodium Chloride (Saline Lock Flush) 10 ml PICC IV 07/08/20 18:00 Cancel Spironolactone (Aldactone) 25 mg QAM PO 07/06/20 09:00 07/13/20 07:58 Torsemide (Demadex) 100 mg DAILY PO 07/06/20 09:00 07/13/20 07:59 Vitamin B Complex/ Vitamin C (Therapeutic B Complex w/C) 1 cap DAILY PO 07/06/20 09:00 07/13/20 07:56 KVNG MUNOZ MD Jul 13, 2020 14:39
[2020-07-13 20:00] VITALS: BP 123/72
[2020-07-13] MEDS: SENNA 8.6 MG TAB (SENOKOT) PO SCH (20:19)
[2020-07-13] MEDS: ATORVASTATIN 20 MG TAB PO SCH (20:19)
[2020-07-14 05:40] VITALS: BP 151/73
[2020-07-14] MEDS: FORMOTEROL FUMARATE 20 MCG/2 ML INHALATION SOLUTION (PERFOROMIST) INH SCH ×2 (08:06→19:39)
[2020-07-14] MEDS: BUDESONIDE 0.5 MG/2 ML INHALATION SUSPENSION INH SCH ×2 (08:06→19:39)
[2020-07-14] MEDS: TORSEMIDE 100 MG TAB PO SCH (09:15)
[2020-07-14] MEDS: PANTOPRAZOLE 40MG TAB (PROTONIX) PO SCH ×2 (09:15→20:22)
[2020-07-14] MEDS: guaiFENesin 200 MG TAB PO SCH ×3 (09:16→20:23)
[2020-07-14] MEDS: CALCIUM/VITAMIN D 500 MG TAB PO SCH ×3 (09:16→20:22)
[2020-07-14] MEDS: VITAMIN B COMPLEX/VIT C CAP PO SCH (09:16)
[2020-07-14] MEDS: APIXABAN 5 MG TAB (ELIQUIS) PO SCH ×2 (09:16→20:23)
[2020-07-14] MEDS: oxyBUTYnin 5 MG TAB PO SCH ×2 (09:16→20:22)
[2020-07-14] MEDS: predniSONE 10 MG TAB PO SCH (09:16)
[2020-07-14] MEDS: DOCUSATE SODIUM 100 MG CAP PO SCH ×2 (09:16→20:22)
[2020-07-14] MEDS: SPIRONOLACTONE 25 MG TAB PO SCH (09:16)
[2020-07-14] MEDS: POTASSIUM CHLORIDE 10 MEQ SR TABLET PO SCH (09:17)
[2020-07-14] MEDS: REMEDY PHYTOPLEX Z-GUARD PASTE 113GM TUBE (FROM STOREROOM PRODUCT) TOP SCH ×3 (09:17→20:24)
[2020-07-14] MEDS: POLYVINYL ALCOHOL OPHTH SOLN 15 ML(LIQUITEARS) OU SCH ×3 (09:17→20:23)
[2020-07-14 14:00] VITALS: BP 140/70
[2020-07-14 20:00] VITALS: BP 146/71
[2020-07-14] MEDS: SENNA 8.6 MG TAB (SENOKOT) PO SCH (20:22)
[2020-07-14] MEDS: ATORVASTATIN 20 MG TAB PO SCH (20:23)
[2020-07-15 06:08] VITALS: BP 129/78
[2020-07-15] MEDS: FORMOTEROL FUMARATE 20 MCG/2 ML INHALATION SOLUTION (PERFOROMIST) INH SCH ×2 (07:30→19:39)
[2020-07-15] MEDS: BUDESONIDE 0.5 MG/2 ML INHALATION SUSPENSION INH SCH ×2 (07:30→19:39)
--- NOTE | 2020-07-15 08:35 | IPN ---
DATE: 07/14/2020 Mrs. Silva is seen this morning on her bedside. She is currently sitting in the recliner chair. She is using oxygen via nasal cannula but reports no shortness of breath. She denies any nausea or vomiting. Nursing staff reports that she has been trying to do her rehabilitation; however, she can only do limited things. PHYSICAL EXAMINATION: Temperature 97.9 degrees Fahrenheit, heart rate 66 per minute, and respiratory rate 18 per minute, blood pressure 150/72 mm of mercury, and oxygen saturation 93% on 2 liters oxygen. Head is atraumatic. Neck is supple and jugular venous distention difficult to be assessed. She is using oxygen via nasal cannula. Heart sounds are regular, and lungs have few basilar rhonchi. Abdomen soft and nontender, and bowel sounds are normal. Extremities without any cyanosis or clubbing. Left lower leg has dressing, and right leg has no edema. Neurologically, she is awake and alert and without a focal deficit. She did not have any new labs today. Yesterday her BUN was 25 and creatinine 1.38. Her potassium level was normal at 3.9. Hemoglobin 10.6 and hematocrit 36. I could not see her yesterday, as she was in radiology when I was rounding. PROBLEMS: 1. Acute renal failure superimposed on chronic kidney disease. Patient has no change in kidney function, and electrolytes are stable. This is probably her baseline function. 2. Congestive heart failure. AT present her volume status seems well compensated. We will continue with current diuretic regimen, and no changes are being made today. 3. Anemia. Her anemia is stable and does not need any urgent intervention. 4. Chronic obstructive pulmonary disease (COPD). This is chronic, as she has been on home oxygen. Her volume status seems well compensated. 5. Generalized weakness and deconditioning. She still remains quite weak and deconditioned and will continue with rehabilitation. ADEEL
--- NOTE | 2020-07-15 08:54 | IPNPDOC ---
Text Note Date of Service The patient was seen on 07/13/20. NOTE Subjective: No any acute events overnight. Patient denied fever, chills, nausea, vomiting, diarrhea or dysuria Objective: GENERAL APPEARANCE: NAD HEENT: no scleral icterus, no JVD, EOMI CARDIOVASCULAR: S1S2 LUNGS: CTA ABDOMEN: soft & not tender w palpitation Assessment and plan: 85-year-old F with PMHx HFpEF, COPD presented s/p sepsis due to pneumonia with generalized weakness and gait impairment #HFpEF - compensated Not in acute exacerbation I's and O's Cardiac diet Continue cardioprotective medications #Atrial fibrillation Heart rate under control Continue oral targeted anticoagulation therapy - Eliquis #COPD/chronic hypoxic respiratory failure - continue supplemental oxygen Not in acute exacerbation Continue inhalers #GERD Continue Protonix #ZAKIYA/CKD - at baseline - follow as per nephrology - assistance appreciated #Deconditioning Secondary to multiple comorbidities and recent hospitalization for pneumonia Continue PT/OT - follow as per primary team - PMR - assistance appreciated #DVT prophylaxis - on Eliquis for afib VS,Fishbone, I+O VS, Fishbone, I+O Vital Signs Date Time Temp Pulse Resp B/P (MAP) Pulse Ox O2 Delivery O2 Flow Rate FiO2 07/15/20 06:08 98.6 81 19 129/78 (95) 91 Nasal Cannula 3.0 I&O- Last 24 Hours up to 6 AM 07/15/20 06:00 Intake Total 880 ml Balance 880 ml ESAN TRUJILLO MD Jul 15, 2020 08:54
[2020-07-15] MEDS: guaiFENesin 200 MG TAB PO SCH ×3 (09:03→20:17)
[2020-07-15] MEDS: CALCIUM/VITAMIN D 500 MG TAB PO SCH ×3 (09:03→20:17)
[2020-07-15] MEDS: VITAMIN B COMPLEX/VIT C CAP PO SCH (09:04)
[2020-07-15] MEDS: TORSEMIDE 100 MG TAB PO SCH (09:04)
[2020-07-15] MEDS: PANTOPRAZOLE 40MG TAB (PROTONIX) PO SCH ×2 (09:04→20:17)
[2020-07-15] MEDS: SPIRONOLACTONE 25 MG TAB PO SCH (09:04)
[2020-07-15] MEDS: POTASSIUM CHLORIDE 10 MEQ SR TABLET PO SCH (09:04)
[2020-07-15] MEDS: oxyBUTYnin 5 MG TAB PO SCH ×2 (09:05→20:17)
[2020-07-15] MEDS: predniSONE 10 MG TAB PO SCH (09:05)
[2020-07-15] MEDS: APIXABAN 5 MG TAB (ELIQUIS) PO SCH ×2 (09:05→20:17)
[2020-07-15] MEDS: DOCUSATE SODIUM 100 MG CAP PO SCH ×2 (09:06→20:17)
[2020-07-15] MEDS: REMEDY PHYTOPLEX Z-GUARD PASTE 113GM TUBE (FROM STOREROOM PRODUCT) TOP SCH ×3 (09:06→20:18)
[2020-07-15] MEDS: POLYVINYL ALCOHOL OPHTH SOLN 15 ML(LIQUITEARS) OU SCH ×3 (09:06→20:18)
--- NOTE | 2020-07-15 12:35 | IPNPDOC ---
PM&R Progress Note DATE OF SERVICE: Jul 15, 2020 [employer] Progress Note DATE OF ADMISSION: Jul 05, 2020 at 18:30 DATE OF SERVICE: Jul INPATIENT REHABILITATION ADMISSION DAY: #10 SUBJECTIVE: Patient is a 25-mcmh-fpz-lady with past medical history of chronic diastolic CHF and COPD who presents status post sepsis due to pneumonia with generalized weakness and gait impairment , contusion, left anterior tibial region with surrounding erythema, possible cellulitis and/or underlying emerging osteomyelitis. Patient has had challenges with ongoing respiratory issues, dyspnea, tachypnea, requiring careful balance for oxygen supplementation. Overall avoidance of hyper Retention. Dressing changes initiated for the wound on the left alfonso, which has now dried out his less red, interim radial graphic studies did not reveal evidence of osteomyelitis and the pain seems to be improving. She seems to be confused and needs, frequent reeducation on the importance of the BiPAP mask at night to help improve overnight oxygenation to give her better start of the day. She is able to follow one-step commands however with difficulty due to mild distress. Functionally, she is currently noted to require moderate assistance ambulating 15 feet with some limited ability to participate varying with level of shortness of breath and fatigue. REVIEW OF SYSTEMS: The following is a completed review of systems and has been reviewed. Review of systems otherwise unremarkable. PAIN: Patient self reports left anterior alfonso pain , improvement EYES: No recent vision changes EARS, NOSE, & THROAT: No throat pain, or dysphagia, or rhinorrhea CARDIOVASCULAR: Denies chest pain or palpitations PULMONARY: +dyspnea on exertion (chronic), cough (chronic) GASTROINTESTINAL: Denies constipation/diarrhea GENITOURINARY: denies dysuria MUSCULOSKELETAL: generalized weakness NEUROLOGICAL:denies paresthesias HEMATOLOGICAL: +easy bruising SKIN: left anterior alfonso hematoma, scattered ecchymosis PSYCHIATRIC: Anxiety noted related to dyspnea PHYSICAL EXAMINATION: VITAL SIGNS: Please see below. GENERAL: Mild distress, Dr. Duckworth lip breathing this morning. Masculinized features noted. HEENT: PERRL. Extraocular movements intact. Clear conjunctiva CARDIOVASCULAR: Regular rate and rhythm. LUNGS: Scattered wheezes and less rhonchi ABDOMEN: Soft, nontender, obese ,positive bowel sounds. Normal active bowel sounds NEUROLOGICAL:. Cranial nerves II through XII grossly intact. Sensation grossly intact EXTREMITIES: 5-\5 strength bilateral upper extremities. 5-\5 strength right lower extremity. 5-/5 strength in bilateral lower extremities. SKIN: scattered ecchymosis , left anterior alfonso ecchymosis with a large mid tibial anterior swelling. Large eschar with less central cratering . No open areas and reduced erythema . Reported sacrum with blanchable erythema. ASSESSMENT: 85-year-old F with past medical history of chronic diastolic CHF and COPD who presents status post sepsis due to pneumonia with generalized weakness and gait impairment , contusion left anterior tibial region , improving with conservative care, decreased concern for cellulitis and/or underlying osteomyelitis. LABORATORY DATA: Reviewed. Please see below. White count is improving fasting blood sugar tight control at 82 MICROBIOLOGY: Please see below. IMAGING: see below PLAN: 1. Rehab- PT/OT advance gait and ADLs, strengthen/stretch/maintain ROM all 4limbs, energy conservation, family training, close monitoring of oxygen demand during exertional activities 2. Cardiac- hx of chronic diastolic CHF- fluid restrict, daily weights, c/u diuretics, medicine consulted to assist in overall management. -Afib with eliquis recently held due to LLE hematoma, restarted on discharge, will monitor Hgb/Hct, c/u diltiazem , holding steady -HLD c/u statin 3. Resp- hx of COPD with recent hypercapneic respiratory failure, c/u 02 goal 88-92%, nebulizer treatments , has become symptomatic, and at times requires bumping up to 3L, particularly during exertional activities. - s/p steroids, course of antibiotics for RUE pneumonia, monitor for worsening infection, Mucinex-stable -BiPAP at night, daughter requesting to leave NC on underneath as patient tends to remove mask at night-probably some problems with positioning, nursing, working on this. Needs frequent reeducation. 4. GI ppx- protonix 40 BID (increased due to steroid use) 5. DVT ppx- on eliquis for afib, monitor left anterior tibia hematoma 6. - monitor PVRs- incontinence improved since starting oxybutynin 7. Renal- hx of CKD monitor for ZAKIYA while on diuretics, renal consulted for fluid management , discussed case they apparently are pleased with progress. Feels she is at her baseline 8. Pain- tylenol prn requested x-ray to reassess left lower extremity hematoma, rule out underlying emerging osteomyelitis 9. Dispo- TBD TIME SPENT: Chart Review, examination, care coordination and documentation 45 minutes. Allergies Coded Allergies: No Known Allergies (Unverified , 12/25/18) Vital Signs Vital Signs Date Time Temp Pulse Resp B/P (MAP) Pulse Ox O2 Delivery O2 Flow Rate FiO2 07/15/20 09:05 78 124/64 07/15/20 09:00 2.0 07/15/20 06:08 98.6 19 91 Nasal Cannula Microbiology Microbiology 07/08/20 Urine Culture - Final, Complete Current Medications Current Medications Current Medications Medications (Trade) Dose Ordered Sig/Yanet Route PRN Reason Start Time Stop Time Status Last Admin Dose Admin Acetaminophen (Tylenol Tab) 650 mg Q4HP PRN PO fever/MILD PAIN (PS 1-4) 07/05/20 15:30 07/11/20 20:23 Albuterol Sulfate (Proventil Neb) 2.5 mg Q2HP PRN NEB SOB/WHEEZING 07/05/20 15:30 Apixaban (Eliquis) 5 mg BID PO 07/05/20 21:00 07/15/20 09:05 Artificial Tears (Akwa Tears) 2 drop TID OU 07/05/20 16:00 07/15/20 09:06 Atorvastatin Calcium (Lipitor) 40 mg QHS PO 07/05/20 21:00 07/14/20 20:23 Bisacodyl (Dulcolax Suppository) 10 mg DAILYPRN PRN [place] CONSTIPATION 07/05/20 15:30 Budesonide (Pulmicort) 0.5 mg RBID INH 07/05/20 20:00 07/15/20 07:30 Calcium/Vitamin D (Oscal D) 500 mg TID PO 07/05/20 16:00 07/15/20 09:03 Diltiazem HCl (Cardizem Cd) 120 mg DAILY PO 07/06/20 09:00 07/15/20 09:05 Docusate Sodium (Colace) 100 mg BID PO 07/05/20 21:00 07/15/20 09:06 Formoterol Fumarate (Perforomist) 20 mcg RBID INH 07/05/20 20:00 07/15/20 07:30 Guaifenesin (Robitussin Tab) 400 mg TID PO 07/05/20 16:00 07/15/20 09:03 Heparin Sodium (Heparin (Flush)) 200 units ASDIRECTED PRN IV SEE LABEL COMMENTS 07/08/20 13:00 Cancel Heparin Sodium (Heparin (Flush)) 200 units PICC IV 07/08/20 18:00 Cancel Oxybutynin Chloride (Ditropan) 5 mg BID PO 07/07/20 21:00 07/15/20 09:05 Pantoprazole Sodium (Protonix) 40 mg BID PO 07/05/20 21:00 07/15/20 09:04 Potassium Chloride (Micro-K Extencaps) 20 meq DAILY PO 07/10/20 09:00 07/15/20 09:04 Prednisone (Deltasone) 10 mg DAILY PO 07/06/20 09:00 07/15/20 09:05 Senna (Senokot) 1 tab QHS PO 07/05/20 21:00 07/14/20 20:22 Sodium Chloride (Saline Lock Flush) 10 ml ASDIRECTED PRN IV SEE LABEL COMMENTS 07/08/20 13:00 Cancel Sodium Chloride (Saline Lock Flush) 10 ml PICC IV 07/08/20 18:00 Cancel Spironolactone (Aldactone) 25 mg QAM PO 07/06/20 09:00 07/15/20 09:04 Torsemide (Demadex) 100 mg DAILY PO 07/06/20 09:00 07/15/20 09:04 Vitamin B Complex/ Vitamin C (Therapeutic B Complex w/C) 1 cap DAILY PO 07/06/20 09:00 07/15/20 09:04 KVNG MUNOZ MD Jul 15, 2020 12:35
[2020-07-15 14:00] VITALS: BP 142/73
[2020-07-15 20:00] VITALS: BP 140/73
[2020-07-15] MEDS: SENNA 8.6 MG TAB (SENOKOT) PO SCH (20:17)
[2020-07-15] MEDS: ATORVASTATIN 20 MG TAB PO SCH (20:17)
[2020-07-16 05:49] VITALS: BP 168/71
[2020-07-16] MEDS: FORMOTEROL FUMARATE 20 MCG/2 ML INHALATION SOLUTION (PERFOROMIST) INH SCH ×2 (07:22→20:06)
[2020-07-16] MEDS: BUDESONIDE 0.5 MG/2 ML INHALATION SUSPENSION INH SCH ×2 (07:22→20:06)
[2020-07-16] MEDS: REMEDY PHYTOPLEX Z-GUARD PASTE 113GM TUBE (FROM STOREROOM PRODUCT) TOP SCH ×3 (09:00→20:18)
[2020-07-16] MEDS: VITAMIN B COMPLEX/VIT C CAP PO SCH (09:00)
--- NOTE | 2020-07-16 09:13 | REP ---
LEFT TIBIA/FIBULA RADIOGRAPHS: 07/13/20. CLINICAL: Open wound. TECHNIQUE: AP and lateral views of the left tibia/fibula. FINDINGS: Age related osteopenia is suggested. No acute or healed injury identified. No periosteal reaction. No obvious subcutaneous emphysema or foreign body. IMPRESSION: 1. Anterior swelling. 2. Underlying osseous structures appear intact without evidence for injury or osteomyelitis by radiographic evaluation. [facility]
[2020-07-16] MEDS: DOCUSATE SODIUM 100 MG CAP PO SCH ×2 (09:57→20:17)
[2020-07-16] MEDS: oxyBUTYnin 5 MG TAB PO SCH ×2 (09:58→20:17)
[2020-07-16] MEDS: guaiFENesin 200 MG TAB PO SCH ×3 (09:58→20:16)
[2020-07-16] MEDS: SPIRONOLACTONE 25 MG TAB PO SCH (09:58)
[2020-07-16] MEDS: PANTOPRAZOLE 40MG TAB (PROTONIX) PO SCH ×2 (09:59→20:17)
[2020-07-16] MEDS: TORSEMIDE 100 MG TAB PO SCH (09:59)
[2020-07-16] MEDS: predniSONE 10 MG TAB PO SCH (09:59)
[2020-07-16] MEDS: POTASSIUM CHLORIDE 10 MEQ SR TABLET PO SCH (10:00)
[2020-07-16] MEDS: APIXABAN 5 MG TAB (ELIQUIS) PO SCH ×2 (10:01→20:39)
[2020-07-16] MEDS: CALCIUM/VITAMIN D 500 MG TAB PO SCH ×3 (10:01→20:17)
[2020-07-16] MEDS: POLYVINYL ALCOHOL OPHTH SOLN 15 ML(LIQUITEARS) OU SCH ×3 (10:02→20:17)
[2020-07-16] MEDS: ACETAMINOPHEN TAB 650MG DOSE (2X325MG) PO PRN (13:49)
[2020-07-16 14:00] VITALS: BP 139/68
[2020-07-16] MEDS: SENNA 8.6 MG TAB (SENOKOT) PO SCH (20:17)
[2020-07-16] MEDS: ATORVASTATIN 20 MG TAB PO SCH (20:17)
[2020-07-16 20:30] VITALS: BP 149/74
[2020-07-17 05:01] VITALS: BP 145/79
[2020-07-17] MEDS: FORMOTEROL FUMARATE 20 MCG/2 ML INHALATION SOLUTION (PERFOROMIST) INH SCH ×2 (07:20→19:32)
[2020-07-17] MEDS: BUDESONIDE 0.5 MG/2 ML INHALATION SUSPENSION INH SCH ×2 (07:20→19:32)
[2020-07-17 07:25] LABS: HEMATOCRIT 36.7 % (36.0-47.0); HEMOGLOBIN 10.7 g/dl (12.0-15.5); MEAN CORPUSCULAR HEMOGLOBIN 28.1 pg (27.0-33.0); MEAN CORPUSCULAR HGB CONC 29.2 g/dl (32.0-36.5); MEAN CORPUSCULAR VOLUME 96.3 fl (80.0-96.0); PLATELET COUNT, AUTOMATED 199 10^3/uL (150-450); RED BLOOD COUNT 3.81 10^6/uL (4.00-5.40); WHITE BLOOD COUNT 10.3 10^3/uL (4.0-10.0)
[2020-07-17 07:38] LABS: ALBUMIN 2.8 GM/DL (3.2-5.2); CALCIUM LEVEL 8.4 MG/DL (8.8-10.2); CREATININE FOR GFR 1.24 MG/DL (0.55-1.30); PHOSPHORUS LEVEL 3.3 MG/DL (2.5-4.9); POTASSIUM SERUM 3.7 MEQ/L (3.5-5.1)
[2020-07-17] MEDS: PANTOPRAZOLE 40MG TAB (PROTONIX) PO SCH ×2 (08:46→21:08)
[2020-07-17] MEDS: guaiFENesin 200 MG TAB PO SCH ×3 (08:47→21:07)
[2020-07-17] MEDS: predniSONE 10 MG TAB PO SCH (08:48)
[2020-07-17] MEDS: VITAMIN B COMPLEX/VIT C CAP PO SCH (08:48)
[2020-07-17] MEDS: TORSEMIDE 100 MG TAB PO SCH (08:48)
[2020-07-17] MEDS: POTASSIUM CHLORIDE 10 MEQ SR TABLET PO SCH (08:48)
[2020-07-17] MEDS: DOCUSATE SODIUM 100 MG CAP PO SCH ×2 (08:48→21:42)
[2020-07-17] MEDS: oxyBUTYnin 5 MG TAB PO SCH ×2 (08:48→21:08)
[2020-07-17] MEDS: CALCIUM/VITAMIN D 500 MG TAB PO SCH ×3 (08:48→21:07)
[2020-07-17] MEDS: SPIRONOLACTONE 25 MG TAB PO SCH (08:48)
[2020-07-17] MEDS: APIXABAN 5 MG TAB (ELIQUIS) PO SCH ×2 (08:48→21:07)
[2020-07-17] MEDS: POLYVINYL ALCOHOL OPHTH SOLN 15 ML(LIQUITEARS) OU SCH ×3 (08:49→21:08)
[2020-07-17] MEDS: REMEDY PHYTOPLEX Z-GUARD PASTE 113GM TUBE (FROM STOREROOM PRODUCT) TOP SCH ×3 (08:49→21:09)
[2020-07-17 14:00] VITALS: BP 141/65
[2020-07-17] MEDS: SENNA 8.6 MG TAB (SENOKOT) PO SCH (21:08)
[2020-07-17] MEDS: ATORVASTATIN 20 MG TAB PO SCH (21:08)
[2020-07-17 21:15] VITALS: BP 168/77
[2020-07-18 05:18] VITALS: BP 120/60
[2020-07-18] MEDS: VITAMIN B COMPLEX/VIT C CAP PO SCH (07:24)
[2020-07-18] MEDS: TORSEMIDE 100 MG TAB PO SCH (07:25)
[2020-07-18] MEDS: POTASSIUM CHLORIDE 10 MEQ SR TABLET PO SCH (07:26)
[2020-07-18] MEDS: DOCUSATE SODIUM 100 MG CAP PO SCH ×2 (07:27→20:56)
[2020-07-18] MEDS: oxyBUTYnin 5 MG TAB PO SCH ×2 (07:27→20:56)
[2020-07-18] MEDS: predniSONE 10 MG TAB PO SCH (07:27)
[2020-07-18] MEDS: PANTOPRAZOLE 40MG TAB (PROTONIX) PO SCH ×2 (07:27→20:56)
[2020-07-18] MEDS: APIXABAN 5 MG TAB (ELIQUIS) PO SCH ×2 (07:28→20:56)
[2020-07-18] MEDS: SPIRONOLACTONE 25 MG TAB PO SCH (07:28)
[2020-07-18] MEDS: CALCIUM/VITAMIN D 500 MG TAB PO SCH ×3 (07:28→20:56)
[2020-07-18] MEDS: guaiFENesin 200 MG TAB PO SCH ×3 (07:28→20:56)
[2020-07-18] MEDS: REMEDY PHYTOPLEX Z-GUARD PASTE 113GM TUBE (FROM STOREROOM PRODUCT) TOP SCH ×3 (07:29→20:57)
[2020-07-18] MEDS: POLYVINYL ALCOHOL OPHTH SOLN 15 ML(LIQUITEARS) OU SCH ×3 (07:29→20:57)
[2020-07-18] MEDS: FORMOTEROL FUMARATE 20 MCG/2 ML INHALATION SOLUTION (PERFOROMIST) INH SCH ×2 (07:44→20:14)
[2020-07-18] MEDS: BUDESONIDE 0.5 MG/2 ML INHALATION SUSPENSION INH SCH ×2 (07:45→20:14)
[2020-07-18 14:00] VITALS: BP 129/60
[2020-07-18 20:00] VITALS: BP 143/69
[2020-07-18] MEDS: SENNA 8.6 MG TAB (SENOKOT) PO SCH (20:56)
[2020-07-18] MEDS: ATORVASTATIN 20 MG TAB PO SCH (20:56)
[2020-07-18] MEDS: ACETAMINOPHEN TAB 650MG DOSE (2X325MG) PO PRN (20:58)
[2020-07-19 06:00] VITALS: BP 146/71
--- NOTE | 2020-07-19 07:19 | IPN ---
NEPHROLOGY PROGRESS NOTE DATE: 07/16/2020 SUBJECTIVE: Ms. Silva seen this morning at her bedside. She is sitting in a recliner chair at the time of my visit. She is feeling better and stronger. She denies any nausea or vomiting. Her dyspnea is chronic and unchanged and she remains on 2 liters of oxygen. She is participating with rehab and making some progress. She did not have any new labs done for the last couple of days. PHYSICAL EXAMINATION: She is awake and alert and without any acute distress at the time of my visit. She is getting ready to get up and go for her rehab session. Blood pressure 168/70 mmHg and heart rate 80 per minute. Temperature 98.4 degrees Fahrenheit and oxygen saturation 93% on 2 liters of oxygen. Head: Atraumatic. Neck: Neck veins difficult to be assessed. Heart: Sounds are regular. Lungs: With scattered rhonchi. Abdomen: Soft and nontender and bowel sounds are normal. Extremities: Without any cyanosis or clubbing. Neurologically: She is at her baseline mentation. LABORATORY DATA: Her last labs were done on July 13 when BUN was 25 and creatinine 1.38. PROBLEMS/PLAN: 1. Acute kidney injury superimposed on chronic kidney disease: Kidney function has been essentially stable. We will check her renal profile tomorrow. Electrolytes were stable at the time of last lab work. 2. Congestive heart failure: Clinically her volume status is well compensated and will continue with current diuretic regimen. 3. Anemia: Her anemia is stable and no intervention is needed at this point. 4. Hypertension: Blood pressure at times somewhat high, but mostly reasonably well controlled. She has been on high dose diuretics and diltiazem. No changes are being made today. [facility]
[2020-07-19] MEDS: BUDESONIDE 0.5 MG/2 ML INHALATION SUSPENSION INH SCH ×2 (07:21→20:32)
[2020-07-19] MEDS: FORMOTEROL FUMARATE 20 MCG/2 ML INHALATION SOLUTION (PERFOROMIST) INH SCH ×2 (07:21→20:33)
--- NOTE | 2020-07-19 07:22 | IPN ---
DATE: 07/17/2020 SUBJECTIVE: Patient was seen and examined today morning in the rehab unit. She was sitting in the sofa. She reports mild shortness of breath and left lower extremity swelling. Otherwise, she is hemodynamically stable and her renal function is stable. OBJECTIVE: VITAL SIGNS: Temperature 96.6 degrees Fahrenheit, blood pressure 141/65, pulse 73, respiratory rate 18, saturating 95% on nasal cannula at 3 liters. INTAKE AND OUTPUT: Urine output is not recorded. She has incontinent voids. She had five voids yesterday and two voids so far today since overnight. Weight in the bed scale is stable at 75.4 kg. PHYSICAL EXAMINATION: GENERAL: Patient is awake, alert and oriented x3, sitting up in the sofa in no apparent distress. HEAD AND NECK: Extraocular muscles intact. Pupils equally round and reactive to light. Mucous membranes are dry. Tongue looks dry. Neck is supple. She has mildly elevated JVD. CARDIOVASCULAR: S1, S2, regular rate. Trace edema of the right lower extremity and 2+ edema of the left lower extremity. RESPIRATORY: Mildly decreased breath sounds at the bases, otherwise no active rales or rhonchi. ABDOMEN: Soft, positive bowel sounds, nontender. No organomegaly. MUSCULOSKELETAL: She has a hematoma and left lower extremity edema. No significant edema of the right lower extremity. TOE STRIPPER: No focal deficit. Power is 5/5 in bilateral upper extremities. LABORATORY REVIEW: CBC showed WBC 10.3, hemoglobin 10.7, platelets 199,000. BMP showed sodium 142, potassium 3.7, chloride 98, bicarb 41, BUN 21, creatinine 1.24. Albumin 2.8. CURRENT INPATIENT MEDICATIONS: Patient's medications were all reviewed by myself. She continues to be on high dose of diuretics including Torsemide 100 mg p.o. daily and Spironolactone 25 mg p.o. daily. No other significant change in the medications today. ASSESSMENT AND PLAN: 1. Acute renal failure superimposed on chronic kidney disease: Patient's renal function is improving. She is tolerating the higher dose of diuretics. Creatinine is 1.2, which is optimal at this time. Okay to continue current regimen. 2. Chronic diastolic congestive heart failure: Volume status is optimal. She only has edema on the left extremity, which has hematoma as well. Continue current dose of Torsemide and Spironolactone. 3. COPD and pneumonia: Patient is status post antibiotics. White cell count is improving. She continues to be on prednisone 10 mg p.o. daily. 4. Atrial fibrillation: Heart rate is controlled with current therapy, she is anticoagulated with Eliquis. [facility]
[2020-07-19] MEDS: CALCIUM/VITAMIN D 500 MG TAB PO SCH ×3 (09:17→20:17)
[2020-07-19] MEDS: DOCUSATE SODIUM 100 MG CAP PO SCH ×2 (09:17→20:17)
[2020-07-19] MEDS: predniSONE 10 MG TAB PO SCH (09:17)
[2020-07-19] MEDS: oxyBUTYnin 5 MG TAB PO SCH ×2 (09:18→20:17)
[2020-07-19] MEDS: APIXABAN 5 MG TAB (ELIQUIS) PO SCH ×2 (09:18→20:17)
[2020-07-19] MEDS: VITAMIN B COMPLEX/VIT C CAP PO SCH (09:18)
[2020-07-19] MEDS: TORSEMIDE 100 MG TAB PO SCH (09:18)
[2020-07-19] MEDS: POTASSIUM CHLORIDE 10 MEQ SR TABLET PO SCH (09:19)
[2020-07-19] MEDS: guaiFENesin 200 MG TAB PO SCH ×3 (09:19→20:17)
[2020-07-19] MEDS: PANTOPRAZOLE 40MG TAB (PROTONIX) PO SCH ×2 (09:19→20:17)
[2020-07-19] MEDS: SPIRONOLACTONE 25 MG TAB PO SCH (09:19)
[2020-07-19] MEDS: POLYVINYL ALCOHOL OPHTH SOLN 15 ML(LIQUITEARS) OU SCH ×3 (09:20→20:19)
[2020-07-19] MEDS: REMEDY PHYTOPLEX Z-GUARD PASTE 113GM TUBE (FROM STOREROOM PRODUCT) TOP SCH ×3 (09:20→20:18)
--- NOTE | 2020-07-19 14:51 | IPNPDOC ---
PM&R Progress Note DATE OF SERVICE: Jul 19, 2020 [employer] Progress Note DATE OF ADMISSION: Jul 05, 2020 at 18:30 Date of service: Jul 19, 2020 INPATIENT REHABILITATION ADMISSION DAY: #14 Patient continues with daily dyspnea, lethargy, fatigue, slow progress in therapy activities due to decreased endurance and exercise tolerance. The area of the left foreleg broke open and began to ooze bloody drainage, surrounding areas not as red or inflamed as before. Appreciate nephrologys input and the progress made with progressive diuretics, fluid volume management, output monitoring. Fasting blood sugars noted to be low despite continuing course of low-dose [id number]. Family training held today decided we will postpone discharge for another day to see if we can improve her nutritional status and monitor wound. Fasting blood sugars up a little higher and watch the wound to make sure there is no evolving infection. FUNCTIONAL STATUS: She requires maximal assistance to go from supine to sit, minimal assistance for rolling, this week has had difficulty to participate due to level of shortness of breath and fatigue, continues work on basic strengthening activities. REVIEW OF SYSTEMS: The following is a completed review of systems and has been reviewed. Review of systems otherwise unremarkable. PAIN: Patient self reports left anterior alfonso pain and draining wound EYES: No recent vision changes EARS, NOSE, & THROAT: No throat pain, or dysphagia, or rhinorrhea CARDIOVASCULAR: Denies chest pain or palpitations PULMONARY: +dyspnea on exertion (chronic), cough (chronic) GASTROINTESTINAL: Denies constipation/diarrhea GENITOURINARY: Denies dysuria MUSCULOSKELETAL: generalized weakness NEUROLOGICAL:denies paresthesias HEMATOLOGICAL: +easy bruising SKIN: left anterior alfonso hematoma. PSYCHIATRIC: Anxiety noted related to dyspnea All other review of systems found to be negative. PHYSICAL EXAMINATION: VITAL SIGNS: Please see below. GENERAL: Mild distress. HEENT: PERRL. Extraocular movements intact. CARDIOVASCULAR: Regular rate and rhythm. LUNGS: Scattered crackles, wheezes, no rhonchi ABDOMEN: Soft, nontender, obese ,positive bowel sounds. Normal active bowel sounds NEUROLOGICAL:. Cranial nerves II through XII grossly intact. Sensation grossly intact EXTREMITIES: 5-\5 strength bilateral upper extremities. 5-\5 strength right lower extremity. 5-/5 strength in left lower extremity. SKIN: scattered ecchymosis , left anterior alfonso ecchymosis with a large mid tibial anterior swelling now starting to drain on the lower aspect. Flocculence tenderness, reported sacrum with blanchable erythema. LABORATORY: Creatinine 1.24, yesterday albumin 2.8 ASSESSMENT: 85-year-old F with PLAN: 1. Rehab- PT/OT advance gait and ADLs, strengthen/stretch/maintain ROM all 4limbs, energy conservation, family training 2. Cardiac- hx of chronic diastolic CHF- fluid restrict, daily weights, c/u diuretics, medicine consulted to assist in overall management, seems to be having greater respiratory challenges. -Afib with eliquis recently held due to LLE hematoma, restarted on discharge, will monitor Hgb/Hct, c/u diltiazem , holding steady. Anemic Hb10.7 -HLD c/u statin 3. Resp- hx of COPD with recent hypercapneic respiratory failure, c/u 02 goal 88-92%, nebulizer treatments , has become symptomatic, and at times requires bumping up to 3L, particularly during exertional activities. - s/p steroids, course of antibiotics for RUE pneumonia, monitor for worsening infection, Mucinex-stable -BiPAP at night, daughter requesting to leave NC on underneath as patient tends to remove mask at night-probably some problems with positioning, nursing, working on this. 4. GI ppx- protonix 40 BID (increased due to steroid use), poor PO intake add ensure 5. DVT ppx- on eliquis for afib, monitor left anterior tibia hematoma 6. - monitor PVRs- incontinence today since starting oxybutynin, UA with 1+ LE and no bacteria, will hold off on treating until cx returns 7. Renal- hx of CKD monitor for ZAKIYA while on diuretics, renal consulted for fluid management 8. Pain- tylenol prn 9. Dispo-home with daughter, who is primary caregiver and already begun family training Allergies Coded Allergies: No Known Allergies (Unverified , 12/25/18) Vital Signs Vital Signs Date Time Temp Pulse Resp B/P (MAP) Pulse Ox O2 Delivery O2 Flow Rate FiO2 07/19/20 09:37 2.0 07/19/20 09:18 83 146/71 07/19/20 06:00 97.6 18 91 Nasal Cannula Current Medications Current Medications Current Medications Medications (Trade) Dose Ordered Sig/Yanet Route PRN Reason Start Time Stop Time Status Last Admin Dose Admin Acetaminophen (Tylenol Tab) 650 mg Q4HP PRN PO fever/MILD PAIN (PS 1-4) 07/05/20 15:30 07/18/20 20:58 Albuterol Sulfate (Proventil Neb) 2.5 mg Q2HP PRN NEB SOB/WHEEZING 07/05/20 15:30 Apixaban (Eliquis) 5 mg BID PO 07/05/20 21:00 07/19/20 09:18 Artificial Tears (Akwa Tears) 2 drop TID OU 07/05/20 16:00 07/19/20 09:20 Atorvastatin Calcium (Lipitor) 40 mg QHS PO 07/05/20 21:00 07/18/20 20:56 Bisacodyl (Dulcolax Suppository) 10 mg DAILYPRN PRN [place] CONSTIPATION 07/05/20 15:30 Budesonide (Pulmicort) 0.5 mg RBID INH 07/05/20 20:00 07/19/20 07:21 Calcium/Vitamin D (Oscal D) 500 mg TID PO 07/05/20 16:00 07/19/20 09:17 Diltiazem HCl (Cardizem Cd) 120 mg DAILY PO 07/06/20 09:00 07/19/20 09:18 Docusate Sodium (Colace) 100 mg BID PO 07/05/20 21:00 07/19/20 09:17 Formoterol Fumarate (Perforomist) 20 mcg RBID INH 07/05/20 20:00 07/19/20 07:21 Guaifenesin (Robitussin Tab) 400 mg TID PO 07/05/20 16:00 07/19/20 09:19 Heparin Sodium (Heparin (Flush)) 200 units ASDIRECTED PRN IV SEE LABEL COMMENTS 07/08/20 13:00 Cancel Heparin Sodium (Heparin (Flush)) 200 units PICC IV 07/08/20 18:00 Cancel Miscellaneous (Unresolved Clarification Entry) SEE LABEL COMMENTS DAILY XX 07/18/20 09:00 07/19/20 07:40 DC Oxybutynin Chloride (Ditropan) 5 mg BID PO 07/07/20 21:00 07/19/20 09:18 Pantoprazole Sodium (Protonix) 40 mg BID PO 07/05/20 21:00 07/19/20 09:19 Potassium Chloride (Micro-K Extencaps) 20 meq DAILY PO 07/10/20 09:00 07/19/20 09:19 Prednisone (Deltasone) 10 mg DAILY PO 07/06/20 09:00 07/19/20 09:17 Senna (Senokot) 1 tab QHS PO 07/05/20 21:00 07/18/20 20:56 Sodium Chloride (Saline Lock Flush) 10 ml ASDIRECTED PRN IV SEE LABEL COMMENTS 07/08/20 13:00 Cancel Sodium Chloride (Saline Lock Flush) 10 ml PICC IV 07/08/20 18:00 Cancel Spironolactone (Aldactone) 25 mg QAM PO 07/06/20 09:00 07/19/20 09:19 Torsemide (Demadex) 100 mg DAILY PO 07/06/20 09:00 07/19/20 09:18 Vitamin B Complex/ Vitamin C (Therapeutic B Complex w/C) 1 cap DAILY PO 07/06/20 09:00 07/19/20 09:18 KVNG MUNOZ MD Jul 19, 2020 14:51
[2020-07-19 20:00] VITALS: BP 148/72
[2020-07-19] MEDS: SENNA 8.6 MG TAB (SENOKOT) PO SCH (20:17)
[2020-07-19] MEDS: ATORVASTATIN 20 MG TAB PO SCH (20:17)
[2020-07-20 06:09] VITALS: BP 147/80
[2020-07-20] MEDS: FORMOTEROL FUMARATE 20 MCG/2 ML INHALATION SOLUTION (PERFOROMIST) INH SCH ×2 (06:19→19:21)
[2020-07-20 06:20] LABS: BASO % 0.4 % (0.0-1.0); EOS # 0.2 10^3/uL (0.0-0.5); HEMATOCRIT 37.9 % (36.0-47.0); HEMOGLOBIN 11.1 g/dl (12.0-15.5); LYMPH # 1.9 10^3/uL (1.5-5.0); LYMPH % 18.2 % (24.0-44.0); MEAN CORPUSCULAR HEMOGLOBIN 27.8 pg (27.0-33.0); MEAN CORPUSCULAR HGB CONC 29.3 g/dl (32.0-36.5); MONO # 0.6 10^3/uL (0.0-0.8); MONO % 6.3 % (0.0-5.0); NEUTROPHILS # 7.4 10^3/uL (1.5-8.5); NEUTROPHILS % 72.6 % (36.0-66.0); PLATELET COUNT, AUTOMATED 228 10^3/uL (150-450); RED BLOOD COUNT 3.99 10^6/uL (4.00-5.40); WHITE BLOOD COUNT 10.2 10^3/uL (4.0-10.0)
[2020-07-20] MEDS: BUDESONIDE 0.5 MG/2 ML INHALATION SUSPENSION INH SCH ×2 (06:20→19:21)
[2020-07-20 06:43] LABS: ALBUMIN 2.9 GM/DL (3.2-5.2); CALCIUM LEVEL 9.4 MG/DL (8.8-10.2); CREATININE FOR GFR 1.34 MG/DL (0.55-1.30); GLOMERULAR FILTRATION RATE 40.2 (>32)
[2020-07-20] MEDS: SPIRONOLACTONE 25 MG TAB PO SCH (08:35)
[2020-07-20] MEDS: VITAMIN B COMPLEX/VIT C CAP PO SCH (08:35)
[2020-07-20] MEDS: DOCUSATE SODIUM 100 MG CAP PO SCH ×2 (08:35→20:32)
[2020-07-20] MEDS: POTASSIUM CHLORIDE 10 MEQ SR TABLET PO SCH (08:35)
[2020-07-20] MEDS: guaiFENesin 200 MG TAB PO SCH ×3 (08:35→20:32)
[2020-07-20] MEDS: TORSEMIDE 100 MG TAB PO SCH (08:35)
[2020-07-20] MEDS: PANTOPRAZOLE 40MG TAB (PROTONIX) PO SCH ×2 (08:35→20:32)
[2020-07-20] MEDS: predniSONE 10 MG TAB PO SCH (08:35)
[2020-07-20] MEDS: CALCIUM/VITAMIN D 500 MG TAB PO SCH ×3 (08:35→20:32)
[2020-07-20] MEDS: APIXABAN 5 MG TAB (ELIQUIS) PO SCH ×2 (08:35→20:32)
[2020-07-20] MEDS: oxyBUTYnin 5 MG TAB PO SCH ×2 (08:35→20:32)
[2020-07-20] MEDS: POLYVINYL ALCOHOL OPHTH SOLN 15 ML(LIQUITEARS) OU SCH ×3 (08:36→20:33)
[2020-07-20] MEDS: REMEDY PHYTOPLEX Z-GUARD PASTE 113GM TUBE (FROM STOREROOM PRODUCT) TOP SCH ×3 (08:37→20:33)
[2020-07-20 14:00] VITALS: BP 117/56
--- NOTE | 2020-07-20 14:07 | IPN ---
DATE: 07/20/2020 SUBJECTIVE: The patient was seen and examined at the bedside today morning in the rehab unit. She was getting her Physical Therapy when I saw her. She reports mild shortness of breath, otherwise she is hemodynamically stable. She continues to be on the same dose of diuretics. PHYSICAL EXAMINATION: VITAL SIGNS: Temperature is 98.4 degrees Fahrenheit, blood pressure 147/80, pulse 84, respiratory rate is 17, saturating 92% on nasal cannula at 2 liters. Intake and output: Urine output is not recorded. She has incontinent voids. Weight on the bed scale is 74.2 kg which is stable. GENERAL APPEARANCE: The patient is awake, alert, oriented x3, laying in bed, in no apparent distress. HEAD AND NECK: Extraocular muscles intact. Pupils are equally round and reactive to light. Mucous membranes are moist. Neck is supple. There is no significant jugular venous distention. CARDIOVASCULAR: S1, S2, 1+ edema of the right ankle and 1+ edema of the left leg. RESPIRATORY: Decreased breath sounds at the bases because of COPD, otherwise I do not see hear any rales or rhonchi. ABDOMEN: Soft, positive bowel sounds, nontender, no organomegaly. MUSCULOSKELETAL: She has a dressing on the left leg. PASSENGER SERVICE MANAGER: No focal deficits. Strength is 5/5 in bilateral upper extremities. LABORATORY DATA: CBC showed a WBC of 10.2, hemoglobin 11.1, platelets are 228,000, BMP showed a sodium of 141, potassium 4, chloride 95, bicarbonate 43, BUN 21, creatinine 1.3. CURRENT INPATIENT MEDICATIONS: Patients medications were all reviewed by myself. She continues to be on torsemide 100 mg p.o. daily, spironolactone 25 mg p.o. daily. ASSESSMENT AND PLAN: 1. Chronic kidney disease Stage III, renal function is stable at baseline. She is tolerating a higher dose of diuretics. Creatinine has been fluctuating from 1.2 to 1.3, okay to continue current diuretic dose. 2. Chronic diastolic congestive heart failure. Volume status is optimized with current dose of spironolactone and torsemide. She can continue this dose after discharge from the hospital. 3. COPD and pneumonia. Patient continues to be on a low dose of prednisone, the pneumonia is resolved now. 4. Atrial fibrillation, heart rate is controlled with Diltiazem and she is already anticoagulated. 5. Disposition: Patient is hopefully going to be discharged from the rehab unit tomorrow morning. She is optimized to be discharged from the hospital. She will need to follow-up with the Nephrology Service within two weeks after discharge from the hospital. ADEEL
[2020-07-20 20:00] VITALS: BP 160/72
[2020-07-20] MEDS: SENNA 8.6 MG TAB (SENOKOT) PO SCH (20:32)
[2020-07-20] MEDS: ATORVASTATIN 20 MG TAB PO SCH (20:32)
[2020-07-21] MEDS: BUDESONIDE 0.5 MG/2 ML INHALATION SUSPENSION INH SCH (05:49)
[2020-07-21] MEDS: FORMOTEROL FUMARATE 20 MCG/2 ML INHALATION SOLUTION (PERFOROMIST) INH SCH (05:49)
[2020-07-21 06:00] VITALS: BP 143/67
[2020-07-21] MEDS: oxyBUTYnin 5 MG TAB PO SCH (08:35)
[2020-07-21] MEDS: DOCUSATE SODIUM 100 MG CAP PO SCH (08:35)
[2020-07-21 08:36] VITALS: BP 132/64
[2020-07-21] MEDS: VITAMIN B COMPLEX/VIT C CAP PO SCH (08:36)
[2020-07-21] MEDS: predniSONE 10 MG TAB PO SCH (08:36)
[2020-07-21] MEDS: APIXABAN 5 MG TAB (ELIQUIS) PO SCH (08:36)
[2020-07-21] MEDS: CALCIUM/VITAMIN D 500 MG TAB PO SCH (08:37)
[2020-07-21] MEDS: POTASSIUM CHLORIDE 10 MEQ SR TABLET PO SCH (08:37)
[2020-07-21] MEDS: PANTOPRAZOLE 40MG TAB (PROTONIX) PO SCH (08:37)
[2020-07-21] MEDS: SPIRONOLACTONE 25 MG TAB PO SCH (08:37)
[2020-07-21] MEDS: TORSEMIDE 100 MG TAB PO SCH (08:37)
[2020-07-21] MEDS: guaiFENesin 200 MG TAB PO SCH (08:37)
[2020-07-21] MEDS: POLYVINYL ALCOHOL OPHTH SOLN 15 ML(LIQUITEARS) OU SCH (08:38)
[2020-07-21] MEDS: REMEDY PHYTOPLEX Z-GUARD PASTE 113GM TUBE (FROM STOREROOM PRODUCT) TOP SCH (08:39)
[2020-07-21] MEDS ORDERED: KLOR10TA76 PO (09:41)
[2020-07-21] MEDS ORDERED: OXYB5TAB10 PO (09:41)
--- NOTE | 2020-07-21 18:03 | DS.PDOC ---
PM&R Discharge Summary Board [facility] Discharge Note DATE OF ADMISSION: Jul 05, 2020 at 18:30 DATE OF DISCHARGE: Jul 21, 2020 at 14:55 DISCHARGE DIAGNOSES: 1. CHF. 2., A. fib. 3., COPD, oxygen dependent. 4. Diabetes. 5. Obesity 6. Pulmonary hypertension 7. Dyspnea 8. Respiratory failure 9. Pneumonia with sepsis 10. Hematoma left lower extremity PAST MEDICAL HISTORY: As above HOSPITAL COURSE: Patient was admitted to acute rehabilitation July 05, had a juan course initially due to the cardiopulmonary challenges and was on isolation due to her pneumonia. CHF responded to fluid restriction diuretics. Left lower extremity wound management required as developed a large hematoma which eventually began to drain. Follow-up plain films did not reveal evidence of bony damage or osteomyelitis. Activities were limited by severe cardiopulmonary compromise. At times, requiring active person with breathing and reassurance due to anxiety. Hospitalists one to maintain a low 90% range to avoid hypercapnia and oxygen levels had to be titrated with respect to exercise activities, usually averaging about 1-2 L PHYSICAL EXAMINATION: GENERAL: Last distress today, smaller than looking forward to. HEENT: Extraocular movements intact. CARDIOVASCULAR: Regular rate and rhythm. LUNGS: Scattered crackles, no wheezes, no rhonchi ABDOMEN: Soft, nontender, obese ,positive bowel sounds. Normal active bowel sounds NEUROLOGICAL:. Cranial nerves II through XII grossly intact. Sensation grossly intact EXTREMITIES: 5-\5 strength bilateral upper extremities. 5-\5 strength right lower extremity. 5-/5 strength in left lower extremity. SKIN: scattered ecchymosis , left anterior alfonso ecchymosis with a large mid tibial anterior swelling no longer draining on the lower aspect. Less Flocculent or tenderness, reported sacrum with blanchable erythema. LABORATORY DATA: Please see below. ALLERGIES: See below. MEDICATIONS: See Below. DISCHARGE DISPOSITION: Home with daughter. Follow-up with primary care doctor decision regarding cardiopulmonary issues, continuing her weaning low-dose steroids and other respiratory treatments, home health and wound care Vital Signs/I&O Vital Sign - Last 24 Hours 07/20/20 07/20/20 07/21/20 07/21/20 20:00 21:00 06:00 08:36 Temp 98.8 97.5 Pulse 83 85 79 Resp 20 17 B/P (MAP) 160/72 (101) 143/67 (92) 132/64 Pulse Ox 94 90 O2 Delivery Nasal Cannula Nasal Cannula O2 Flow Rate 2.0 2.0 2.0 07/21/20 08:45 O2 Flow Rate 2.0 I&O- Last 24 Hours up to 6 AM 07/21/20 06:00 Intake Total 1090 ml Output Total 0 ml Balance 1090 ml Laboratory Data CBC/BMP Laboratory Tests 07/20/20 05:54 Labs 48H Laboratory Tests 07/20/20 05:54: White Blood Count 10.2H, Red Blood Count 3.99L, Hemoglobin 11.1L, Hematocrit 37.9, Mean Corpuscular Volume 95.0, Mean Corpuscular Hemoglobin 27.8, Mean Corpuscular Hemoglobin Concent 29.3L, Red Cell Distribution Width 15.6H, Platelet Count 228, Immature Granulocyte % (Auto) 0.5, Neutrophils (%) (Auto) 72.6H, Lymphocytes (%) (Auto) 18.2L, Monocytes (%) (Auto) 6.3H, Eosinophils (%) (Auto) 2.0, Basophils (%) (Auto) 0.4, Neutrophils # (Auto) 7.4, Lymphocytes # (Auto) 1.9, Monocytes # (Auto) 0.6, Eosinophils # (Auto) 0.2, Basophils # (Auto) 0.0, Nucleated Red Blood Cells % (auto) 0.0, Sodium Level 141, Potassium Level 4.0, Chloride Level 95L, Carbon Dioxide Level 43H, Anion Gap 3L, Blood Urea Nitrogen 21H, Creatinine 1.34H, Glomerular Filtration Rate 40.2, Fasting Glucose 91, Calcium Level 9.4, Phosphorus Level 3.0, Albumin 2.9L Medications Medications Current Medications Medications (Trade) Dose Ordered Sig/Yanet Route PRN Reason Start Time Stop Time Status Last Admin Dose Admin Acetaminophen (Tylenol Tab) 650 mg Q4HP PRN PO fever/MILD PAIN (PS 1-4) 07/05/20 15:30 07/21/20 15:55 DC 07/18/20 20:58 Albuterol Sulfate (Proventil Neb) 2.5 mg Q2HP PRN NEB SOB/WHEEZING 07/05/20 15:30 07/21/20 15:55 DC Apixaban (Eliquis) 5 mg BID PO 07/05/20 21:00 07/21/20 15:55 DC 07/21/20 08:36 Artificial Tears (Akwa Tears) 2 drop TID OU 07/05/20 16:00 07/21/20 15:55 DC 07/21/20 08:38 Atorvastatin Calcium (Lipitor) 40 mg QHS PO 07/05/20 21:00 07/21/20 15:55 DC 07/20/20 20:32 Bisacodyl (Dulcolax Suppository) 10 mg DAILYPRN PRN [place] CONSTIPATION 07/05/20 15:30 07/21/20 15:55 DC Budesonide (Pulmicort) 0.5 mg RBID INH 07/05/20 20:00 07/21/20 15:55 DC 07/21/20 05:49 Calcium/Vitamin D (Oscal D) 500 mg TID PO 07/05/20 16:00 07/21/20 15:55 DC 07/21/20 08:37 Diltiazem HCl (Cardizem Cd) 120 mg DAILY PO 07/06/20 09:00 07/21/20 15:55 DC 07/21/20 08:36 Docusate Sodium (Colace) 100 mg BID PO 07/05/20 21:00 07/21/20 15:55 DC 07/21/20 08:35 Formoterol Fumarate (Perforomist) 20 mcg RBID INH 07/05/20 20:00 07/21/20 15:55 DC 07/21/20 05:49 Guaifenesin (Robitussin Tab) 400 mg TID PO 07/05/20 16:00 07/21/20 15:55 DC 07/21/20 08:37 Heparin Sodium (Heparin (Flush)) 200 units ASDIRECTED PRN IV SEE LABEL COMMENTS 07/08/20 13:00 Cancel Heparin Sodium (Heparin (Flush)) 200 units PICC IV 07/08/20 18:00 Cancel Miscellaneous (Unresolved Clarification Entry) SEE LABEL COMMENTS DAILY XX 07/18/20 09:00 07/19/20 07:40 DC Oxybutynin Chloride (Ditropan) 5 mg BID PO 07/07/20 21:00 07/21/20 15:55 DC 07/21/20 08:35 Pantoprazole Sodium (Protonix) 40 mg BID PO 07/05/20 21:00 07/21/20 15:55 DC 07/21/20 08:37 Potassium Chloride (Micro-K Extencaps) 20 meq DAILY PO 07/10/20 09:00 07/21/20 15:55 DC 07/21/20 08:37 Prednisone (Deltasone) 10 mg DAILY PO 07/06/20 09:00 07/21/20 15:55 DC 07/21/20 08:36 Senna (Senokot) 1 tab QHS PO 07/05/20 21:00 07/21/20 15:55 DC 07/20/20 20:32 Sodium Chloride (Saline Lock Flush) 10 ml ASDIRECTED PRN IV SEE LABEL COMMENTS 07/08/20 13:00 Cancel Sodium Chloride (Saline Lock Flush) 10 ml PICC IV 07/08/20 18:00 Cancel Spironolactone (Aldactone) 25 mg QAM PO 07/06/20 09:00 07/21/20 15:55 DC 07/21/20 08:37 Torsemide (Demadex) 100 mg DAILY PO 07/06/20 09:00 07/21/20 15:55 DC 07/21/20 08:37 Vitamin B Complex/ Vitamin C (Therapeutic B Complex w/C) 1 cap DAILY PO 07/06/20 09:00 07/21/20 15:55 DC 07/21/20 08:36 Scheduled Apixaban (Eliquis) 5 Mg Tablet, 5 MG PO BID, (Reported) Atorvastatin Calcium (Atorvastatin Calcium) 40 Mg Tab, 40 MG PO QHS, (Reported) Budesonide (Budesonide) 0.5 Mg/2 Ml Ampul.neb, 0.5 MG PO BID, (Reported) Calcium Carbonate/Vitamin D3 (Calcium 500-Vit D3 200 Tablet) 1 Each Tablet, 1 TAB PO DAILY, (Reported) Diltiazem HCl (Cartia Xt) 120 Mg Cap, 120 MG PO DAILY, (Reported) Docusate Sodium (Docusate Sodium) 100 Mg Capsule, 100 MG PO BID, (Reported) Formoterol Fumarate (Perforomist) 20 Mcg/2 Ml Vial.neb, 20 MCG PO BID, (Reported) Guaifenesin (Mucinex) 600 Mg Tab.er.12h, 600 MG PO BID, (Reported) Oxybutynin Chloride (Oxybutynin Chloride) 5 Mg Tablet, 5 MG PO BID Pantoprazole Sodium (Pantoprazole Sodium) 40 Mg Tablet.dr, 40 MG PO QAM, (Reported) Polyvinyl Alcohol (Artificial Tears) 1.4 % [place], 1 DROP OU QID, (Reported) Potassium Chloride (Klor-Con M10) 10 Meq Tab.er.prt, 20 MEQ PO DAILY Prednisone (Prednisone) 10 Mg Tablet, 10 MG PO DAILY, (Reported) Spironolactone (Spironolactone) 25 Mg Tab, 25 MG PO DAILY, (Reported) Torsemide (Torsemide) 100 Mg Tablet, 100 MG PO DAILY, (Reported) Umeclidinium [place] (Incruse Ellipta) 62.5 Mcg Blst.w.dev, 1 PUFF INH DAILY, (Reported) Vitamin B Complex/Folic Acid (B-Complex Tablet) 0.4 Mg Tablet, 1 TAB PO DAILY, (Reported) Scheduled PRN Acetaminophen (Acetaminophen) 500 Mg Tablet, 500 MG PO Q4H PRN for PAIN, (Reported) Albuterol Sulfate (Ventolin Hfa) 18 Gm Hfa.aer.ad, 2 PUFF INH Q4-6HP PRN for wheezing, (Reported) Ipratropium/Albuterol Sulfate (Iprat-Albut 0.5-3(2.5) mg/3 ml) 3 Ml Ampul.neb, 1 VIAL INH Q4H PRN for SHORTNESS OF BREATH, (Reported) Allergies Coded Allergies: No Known Allergies (Unverified , 12/25/18) KVNG MUNOZ MD Jul 21, 2020 18:03
--- NOTE | 2020-07-22 13:51 | IPNPDOC ---
PM&R Progress Note DATE OF SERVICE: Jul 14, 2020 [employer] Lab Technician Progress Note DATE OF ADMISSION: Jul 05, 2020 at 18:30 INPATIENT DAY # 9 Subjective: Patient having less dyspnea and responding to interventions to improve oxygenation. She feels that she is slowly gaining strength. Left alfonso swollen, mid tibial lesion with cratering eschar. Tib-fib films taken were negative for evidence of osteomyelitis . White count 11.6 , and she remains afebrile. She is able to follow one-step commands however with difficulty due to mild distress. FUNCTIONAL STATUS: Patient relies heavily on therapist assist and presents with increased posterior lean/pushing with sit<>stand attempts. Provided extensive education and trial with leaning forward to facilitate improved buttocks clearance and LE muscle activation; improvement noted and achieves transfer with modA at end of session. Also continued work on w/c mobility for activity tolerance and endurance with tolerance of 15ft intervals. REVIEW OF SYSTEMS: The following is a completed review of systems and has been reviewed. Review of systems otherwise unremarkable. PAIN: Patient self reports left anterior alfonso pain EYES: No recent vision changes EARS, NOSE, & THROAT: No throat pain, or dysphagia, or rhinorrhea CARDIOVASCULAR: Denies chest pain or palpitations PULMONARY: +dyspnea on exertion (chronic), cough (chronic) GASTROINTESTINAL: Denies constipation/diarrhea GENITOURINARY: denies dysuria MUSCULOSKELETAL: generalized weakness NEUROLOGICAL:denies paresthesias HEMATOLOGICAL: +easy bruising SKIN: left anterior alfonso hematoma, scattered ecchymosis PSYCHIATRIC: Anxiety noted related to dyspnea All other review of systems found to be negative. PHYSICAL EXAMINATION: VITAL SIGNS: Please see below. GENERAL: Mild distress. HEENT: PERRL. Extraocular movements intact. Clear conjunctiva CARDIOVASCULAR: Regular rate and rhythm II/ SM LUNGS: Scattered rhonchi ABDOMEN: Soft, nontender, obese ,positive bowel sounds. Normal active bowel sounds NEUROLOGICAL:. Cranial nerves II through XII grossly intact. Sensation grossly intact EXTREMITIES: 5-\5 strength bilateral upper extremities. 5-\5 strength right lower extremity. 5-/5 strength in left lower extremity. +anasarca (improving) SKIN: scattered ecchymosis , left anterior alfonso ecchymosis with a large mid tibial anterior swelling. Large eschar with central cratering and surrounding erythema . Flocculence tenderness, reported sacrum with blanchable erythema. ASSESSMENT: 85-year-old F with past history of CHF, COPD, status post pneumonia with sepsis, generalized deconditioning, weakness, gait impairment, contusion, left tibial region with significant soft tissue swelling reaction and resolving hematoma. Respiratory challenges are slow and rehabilitative process, but she is making progress. No evidence of osteo-and interim studies. Inconsistently using BiPAP continuing to encourage compliance. PLAN: 1. Rehab- PT/OT advance gait and ADLs, strengthen/stretch/maintain ROM all 4lim bs, energy conservation, family training 2. Cardiac- hx of chronic diastolic CHF- fluid restrict, daily weights, c/u diuretics, medicine consulted to assist in overall management, seems to be having greater respiratory challenges. -Afib with eliquis recently held due to LLE hematoma, restarted on discharge, will monitor Hgb/Hct, c/u diltiazem , holding steady -HLD c/u statin 3. Resp- hx of COPD with recent hypercapneic respiratory failure, c/u 02 goal 88-92%, nebulizer treatments , has become symptomatic, and at times requires bumping up to 3L, particularly during exertional activities. - s/p steroids, course of antibiotics for RUE pneumonia, monitor for worsening infection, Mucinex-stable -BiPAP at night some problems with positioning, nursing, working on this. 4. GI ppx- protonix 40 BID 5. DVT ppx- on eliquis for afib, monitor left anterior tibia hematoma 6. - monitor PVRs- incontinence 7. Renal- hx of CKD monitor for ZAKIYA while on diuretics, renal consulted for fluid management 8. Pain- tylenol prn requested x-ray to reassess left lower extremity hematoma, rule out underlying emerging osteomyelitis 9. Dispo- TBD Allergies Coded Allergies: No Known Allergies (Unverified , 12/25/18) Vital Signs Vital Signs Date Time Temp Pulse Resp B/P (MAP) Pulse Ox O2 Delivery O2 Flow Rate FiO2 07/21/20 08:45 2.0 07/21/20 08:36 79 132/64 07/21/20 06:00 97.5 17 90 Nasal Cannula Current Medications Current Medications Current Medications Medications (Trade) Dose Ordered Sig/Yanet Route PRN Reason Start Time Stop Time Status Last Admin Dose Admin Acetaminophen (Tylenol Tab) 650 mg Q4HP PRN PO fever/MILD PAIN (PS 1-4) 07/05/20 15:30 07/21/20 15:55 DC 07/18/20 20:58 Albuterol Sulfate (Proventil Neb) 2.5 mg Q2HP PRN NEB SOB/WHEEZING 07/05/20 15:30 07/21/20 15:55 DC Apixaban (Eliquis) 5 mg BID PO 07/05/20 21:00 07/21/20 15:55 DC 07/21/20 08:36 Artificial Tears (Akwa Tears) 2 drop TID OU 07/05/20 16:00 07/21/20 15:55 DC 07/21/20 08:38 Atorvastatin Calcium (Lipitor) 40 mg QHS PO 07/05/20 21:00 07/21/20 15:55 DC 07/20/20 20:32 Bisacodyl (Dulcolax Suppository) 10 mg DAILYPRN PRN [place] CONSTIPATION 07/05/20 15:30 07/21/20 15:55 DC Budesonide (Pulmicort) 0.5 mg RBID INH 07/05/20 20:00 07/21/20 15:55 DC 07/21/20 05:49 Calcium/Vitamin D (Oscal D) 500 mg TID PO 07/05/20 16:00 07/21/20 15:55 DC 07/21/20 08:37 Diltiazem HCl (Cardizem Cd) 120 mg DAILY PO 07/06/20 09:00 07/21/20 15:55 DC 07/21/20 08:36 Docusate Sodium (Colace) 100 mg BID PO 07/05/20 21:00 07/21/20 15:55 DC 07/21/20 08:35 Formoterol Fumarate (Perforomist) 20 mcg RBID INH 07/05/20 20:00 07/21/20 15:55 DC 07/21/20 05:49 Guaifenesin (Robitussin Tab) 400 mg TID PO 07/05/20 16:00 07/21/20 15:55 DC 07/21/20 08:37 Heparin Sodium (Heparin (Flush)) 200 units ASDIRECTED PRN IV SEE LABEL COMMENTS 07/08/20 13:00 Cancel Heparin Sodium (Heparin (Flush)) 200 units PICC IV 07/08/20 18:00 Cancel Miscellaneous (Unresolved Clarification Entry) SEE LABEL COMMENTS DAILY XX 07/18/20 09:00 07/19/20 07:40 DC Oxybutynin Chloride (Ditropan) 5 mg BID PO 07/07/20 21:00 07/21/20 15:55 DC 07/21/20 08:35 Pantoprazole Sodium (Protonix) 40 mg BID PO 07/05/20 21:00 07/21/20 15:55 DC 07/21/20 08:37 Potassium Chloride (Micro-K Extencaps) 20 meq DAILY PO 07/10/20 09:00 07/21/20 15:55 DC 07/21/20 08:37 Prednisone (Deltasone) 10 mg DAILY PO 07/06/20 09:00 07/21/20 15:55 DC 07/21/20 08:36 Senna (Senokot) 1 tab QHS PO 07/05/20 21:00 07/21/20 15:55 DC 07/20/20 20:32 Sodium Chloride (Saline Lock Flush) 10 ml ASDIRECTED PRN IV SEE LABEL COMMENTS 07/08/20 13:00 Cancel Sodium Chloride (Saline Lock Flush) 10 ml PICC IV 07/08/20 18:00 Cancel Spironolactone (Aldactone) 25 mg QAM PO 07/06/20 09:00 07/21/20 15:55 DC 07/21/20 08:37 Torsemide (Demadex) 100 mg DAILY PO 07/06/20 09:00 07/21/20 15:55 DC 07/21/20 08:37 Vitamin B Complex/ Vitamin C (Therapeutic B Complex w/C) 1 cap DAILY PO 07/06/20 09:00 07/21/20 15:55 DC 07/21/20 08:36 KVNG MUNOZ MD Jul 22, 2020 13:50
== END 2020-07-21 14:55 | disposition home health service (06) | DRG 193 ==
LOC: M PM&R 18:30
PROVIDERS: ADMIT Physical Medicine & Rehabilitation; ATTEND Physical Medicine & Rehabilitation
DX: J18.9 Pneumonia, unspecified organism (principal); I50.33 Acute on chronic diastolic (congestive) heart failure; E87.3 Alkalosis; R53.1 Weakness; I48.91 Unspecified atrial fibrillation; J44.9 Chronic obstructive pulmonary disease, unspecified; E11.22 Type 2 diabetes mellitus with diabetic chronic kidney disease; N18.30 Chronic kidney disease, stage 3 unspecified; E66.9 Obesity, unspecified; Z66 Do not resuscitate; I27.29 Other secondary pulmonary hypertension; H91.93 Unspecified hearing loss, bilateral; E87.6 Hypokalemia; R26.89 Other abnormalities of gait and mobility; R06.09 Other forms of dyspnea; K21.9 Gastro-esophageal reflux disease without esophagitis; F41.9 Anxiety disorder, unspecified; Z74.09 Other reduced mobility; Z74.1 Need for assistance with personal care; Z99.81 Dependence on supplemental oxygen; Z79.01 Long term (current) use of anticoagulants; Z79.899 Other long term (current) drug therapy; Z68.31 Body mass index [BMI] 31.0-31.9, adult

== ENCOUNTER → 2020-07-29 | Outpatient (REF) | payer MEDICARE, MEDICAID ==
[~2020-07-29] MED LIST changes: +KLOR10TA76 PO; +OXYB5TAB10 PO
[2020-07-29 17:03] LABS: CALCIUM LEVEL 9.1 MG/DL (8.8-10.2); CREATININE FOR GFR 1.16 MG/DL (0.55-1.30); GLOMERULAR FILTRATION RATE 47.5 (>32); POTASSIUM SERUM 4.4 MEQ/L (3.5-5.1)
== END ==
LOC: M SFHCCLAY 11:44
PROVIDERS: ATTEND Family Medicine
DX: E87.6 Hypokalemia (principal)
CPT/HCPCS: 80048; G0463

== ENCOUNTER 2020-12-27 13:03 | Inpatient (IN) | payer MEDICARE, MEDICAID ==
[~2020-12-27] VITALS: Ht 157.5 cm; Wt 73.9 kg
[~2020-12-27 13:03] MED LIST changes: +DEXT4TAB2 PO; -GLUC4CHW19 PO; -PEG1POW PO; +PERF20NE2 NEB; -PERF20NE2 PO; +POLY17PO18 PO
[2020-12-27] MEDS ORDERED: FUROSEMIDE 40MG/4ML VIAL (J1940) IV ONE (13:50)
--- NOTE | 2020-12-27 14:06 | REP ---
INDICATION: DYSPNEA/COUGH COMPARISON: 07/07/2020 TECHNIQUE: Portable AP view of the chest FINDINGS: Evaluation is limited by technique, underpenetration and poor inspiratory effort. The mediastinum and cardiac silhouette are stable and within normal limits for portable technique. The lung worrell demonstrate chronic appearing changes although basilar atelectasis and possible small right pleural effusion cannot be excluded. IMPRESSION: Limited examination cannot exclude bibasilar atelectasis and possible small right pleural effusion. <Electronically signed by Ray Corrigan > 12/27/20 [id number]
[2020-12-27 14:13] LABS: VENOUS BASE EXCESS 13.1 (-2.0-2.0); VENOUS HCO3 44.7 MEQ/L (23.0-27.0); VENOUS O2 SATURATION 85.5 % (60.0-80.0); VENOUS PARTIAL PRESSURE CO2 100.1 mmHg (38.0-50.0); VENOUS PARTIAL PRESSURE O2 56.1 mmHg (30.0-50.0); VENOUS PH 7.268 UNITS (7.330-7.430); VENOUS STANDARD HCO3 36.6 MEQ/L; VENOUS TOTAL CO2 47.8 MEQ/L (24.0-28.0)
[2020-12-27 14:21] LABS: BASO % 0.1 % (0.0-1.0); HEMATOCRIT 43.4 % (36.0-47.0); HEMOGLOBIN 12.9 g/dl (12.0-15.5); LYMPH # 0.9 10^3/uL (1.5-5.0); LYMPH % 5.9 % (24.0-44.0); MEAN CORPUSCULAR HEMOGLOBIN 28.9 pg (27.0-33.0); MEAN CORPUSCULAR HGB CONC 29.7 g/dl (32.0-36.5); MEAN CORPUSCULAR VOLUME 97.1 fl (80.0-96.0); MONO # 0.3 10^3/uL (0.0-0.8); MONO % 2.2 % (2.0-8.0); NEUTROPHILS % 91.2 % (36.0-66.0); PLATELET COUNT, AUTOMATED 214 10^3/uL (150-450); RED BLOOD COUNT 4.47 10^6/uL (4.00-5.40); WHITE BLOOD COUNT 15.4 10^3/uL (4.0-10.0)
[2020-12-27 14:31] LABS: INR 1.2; PROTHROMBIN TIME 15.4 SECONDS (12.5-14.3)
[2020-12-27] MEDS: COMBIVENT RESPIMAT 100-20MCG INHALER 4GM INH SCH ×3 (14:35→14:51)
[2020-12-27 14:45] LABS: RSV AMPLIFICATION NEGATIVE (NEGATIVE)
[2020-12-27 14:50] LABS: ALBUMIN 3.2 GM/DL (3.2-5.2); ALT/SGPT 23 U/L (12-78); BILIRUBIN,DIRECT < 0.1 MG/DL (0.0-0.2); BILIRUBIN,TOTAL 0.2 MG/DL (0.2-1.0); BLOOD UREA NITROGEN 17 MG/DL (7-18); CALCIUM LEVEL 9.5 MG/DL (8.8-10.2); CARBON DIOXIDE LEVEL 43 MEQ/L (21-32); CHLORIDE LEVEL 95 MEQ/L (98-107); CPK CREATINE PHOSPHOKINASE 49 U/L (26-192); CREATININE FOR GFR 1.19 MG/DL (0.55-1.30); GLOMERULAR FILTRATION RATE 46.1 (>32); GLUCOSE, FASTING 138 MG/DL (70-100); MB/CK RELATIVE INDEX 6.12 (< OR =4); NT-PRO BNP 1519 PG/ML (<450); POTASSIUM SERUM 4.4 MEQ/L (3.5-5.1); SODIUM LEVEL 138 MEQ/L (136-145); TOTAL PROTEIN 7.1 GM/DL (6.4-8.2); TROPONIN I 0.03 NG/ML (< 0.10)
[2020-12-27] MEDS ORDERED: methylPREDNISolone 125MG 2ML VIAL IV ONE (15:15)
[2020-12-27] MEDS ORDERED: BUDESONIDE 0.5 MG/2 ML INHALATION SUSPENSION PO SCH (20:00)
[2020-12-27] MEDS ORDERED: FORMOTEROL FUMARATE 20 MCG/2 ML INHALATION SOLUTION (PERFOROMIST) NEB SCH (20:00)
[2020-12-27] MEDS ORDERED: ISOVUE-370 76% 100ML VIAL As Ordered ONE (20:01)
--- NOTE | 2020-12-27 20:06 | ECGEPIP ---
[facility] - ED Test Date: 2020-12-27 Pat Name: CLAIR LR Department: Room: - Gender: Female It Lead: MENA : 1935 Requested By: NATHALIE EDUARDO Order Number: [id number] Reading MD: Katie Hartley Measurements Intervals [place] Rate: 102 P: 83 VT: 186 QRS: -55 QRSD: 92 T: 45 QT: 346 QTc: 450 Interpretive Statements Sinus tachycardia with premature atrial complexes Incomplete right bundle branch block Left anterior fascicular block Inferior infarct , age undetermined similar 06/26/20 Electronically Signed on 12-27-2020 20:05:35 EDT by Katie Hartley
[2020-12-27] MEDS ORDERED: POTA1TAB14 PO (20:17)
[2020-12-27] MEDS ORDERED: OXYB5TAB10 PO (20:17)
[2020-12-27] MEDS ORDERED: ACETAMINOPHEN TAB 650MG DOSE (2X325MG) PO PRN (20:30)
[2020-12-27] MEDS ORDERED: POLYVINYL ALCOHOL OPHTH SOLN 15 ML(LIQUITEARS) OU PRN (20:35)
[2020-12-27] MEDS ORDERED: ALBUTEROL 90 MCG/ACT 8GM HFA INHALER INH PRN (20:35)
--- NOTE | 2020-12-27 20:39 | HPEPDOC ---
General Date of Admission Date of Service: Dec 27, 2020 Attending Physician: SUSAN IRVING MD Chief Complaint Diff Breathing. History of Present Illness Pt is accompanied with her daughter who was at bedside. This is is 85-year-old female presented to [facility] w c/o of worsened SOB for 1 day that was associated with fatigue coughing more however, she's not producing as much sputum as she usually does and fatigue. She denies any CP, abdominal pain, fever, chills, n/v/d. ROS: 12 point ROS negative except as listed in HPI PAST MEDICAL/SURGICAL HISTORY: Diastolic congestive heart failure. Cor pulmonale. CKD, stage III. Aortic valve sclerosis. Pulmonary hypertension. COPD, on home oxygen. Paroxysmal atrial fibrillation, on Eliquis. Type 2 diabetes mellitus. Obesity. Chronic venous insufficiency SOCIAL HISTORY: Ex-smoker. FAMILY HISTORY: CAD ALLERGIES: No known drug allergies. PHYSICAL EXAM VITAL SIGNS: Please see below GEN: elderly female, satting 95% on 2L NC; mild accessory muscle use HEENT: Normocephalic atraumatic lips acyanotic mucus membranes dry sclera anicteric CVS: Heart rate irregularly irregular, no m/g/r, 1+ pitting edema in b.l Lower extr, PMI nondisplaced. no crackles heard LUNGS: No wheezing, rhonci, or rales heard, no JVD appreciated ABDOMEN: abdomen is soft, non tender with palpation, NBS MSK/EXTREMITIES: range of motion intact in all 4 extremities, no joint effusions or fractures NEURO: CN 2-12 are grossly intact, no focal neuro defecits, more confused per usu per daughter SKIN: not flushed or jaundice; no clubbing, cyanosis PSYCH: alert and oriented, appropriate mood and affect IMAGING: XR chest: Limited examination cannot exclude bibasilar atelectasis and possible small right pleural effusion. CTA: IMPRESSION: 1. General hypoinflation with elevation of the right hemidiaphragm which is similar to 05/26/2019. There is thoracic kyphosis and prominent compression of T6 and to a lesser degree T5 which are similar to the prior study. 2. Slight interstitial coarsening with mild bibasilar fibro-atelectatic change with minimal scattered infiltrates, greatest in the posterolateral right upper lobe which is improved since the prior study. There is also resolution of bilateral pleural effusions with decreased adjacent atelectasis. 3. Enlarged main pulmonary artery measuring 42 mm which may be seen with pulmonary hypertension but is similar to the prior study. 4. Otherwise negative CTA chest. No pulmonary embolism is identified. ASSESSMENT AND PLAN: #Encephalopathy 2/2 Acute hypercapnic respiratory failure - will order for an ABG - VBG in ER shows PH 7.27 pco2 97 - resume bipap. PCU w/ tele #Acute COPD exacerbation (source unspecified) #leukocytosis - meets sirs criteria - may be 2/2 to PNA. will order for UA and urine culture- pending - Will cover w/ empiric abx rocephin+zithromax - will order mrsa pcr ; blood cx x2 pending - LA repeat - will order sputum cx and stain -pending - CTA ordered pending results - Continue 2L NC and titrate to 88-92% and duonebs PRN - 125mg loading steroid in ER. will order prednisone 40mg po qd - Will resume home inhaled therapy - will order for mucinex and tesslon pereles prn #Cor pulmonale/ HFpEF / Pulm HTN - does not appear to be in decompensated state -Xr chest shows possible small R Pleural effusion; no pulmonary edema -1+ bilateral lower extr; no crackles appreciated - ER gave 1x 40mg lasix - C/w home med torsemide -strict i&o; daily wt ins; 2L fluid restriction - c/w aldactone - continue cardizem 120mg po daily # Paroxysmal Afib - c/w eliquis - initial trop 0.03. trop trend x2 - f/u - Continue on telemetry # Hyperlipidemia - Continue atorvastatin 40mg po qhs #NIDDM - SSI+ FBSB acqhs+hypogylcemic protocol #CKD 3 -at baseline - Will continue to monitor BMP closely DVT ppx: eliquis code status: dnr/dni Home Medications Scheduled Apixaban (Eliquis) 5 Mg Tablet, 5 MG PO BID, (Reported) Atorvastatin Calcium (Atorvastatin Calcium) 40 Mg Tab, 40 MG PO QHS, (Reported) Budesonide (Budesonide) 0.5 Mg/2 Ml Ampul.neb, 0.5 MG PO BID, (Reported) Calcium Carbonate/Vitamin D3 (Calcium 500-Vit D3 200 Tablet) 1 Each Tablet, 1 TAB PO DAILY, (Reported) Diltiazem HCl (Cartia Xt) 120 Mg Cap, 120 MG PO DAILY, (Reported) Docusate Sodium (Docusate Sodium) 100 Mg Capsule, 100 MG PO BID, (Reported) Formoterol Fumarate (Perforomist) 20 Mcg/2 Ml Vial.neb, 1 VIAL NEB BID, (Reported) BEFORE BUDESONIDE BID Guaifenesin (Mucinex) 600 Mg Tab.er.12h, 600 MG PO BID, (Reported) Oxybutynin Chloride (Oxybutynin Chloride) 5 Mg Tablet, 5 MG PO BID, (Reported) Pantoprazole Sodium (Pantoprazole Sodium) 40 Mg Tablet.dr, 40 MG PO QAM, (Reported) Potassium Chloride (Potassium Chloride) 20 Meq Tablet.er, 20 MEQ PO DAILY, (Reported) Prednisone (Prednisone) 10 Mg Tablet, 10 MG PO DAILY, (Reported) Spironolactone (Spironolactone) 25 Mg Tab, 25 MG PO DAILY, (Reported) Torsemide (Torsemide) 100 Mg Tablet, 100 MG PO DAILY, (Reported) Umeclidinium Crum (Incruse Ellipta) 62.5 Mcg Blst.w.dev, 1 PUFF INH DAILY, (Reported) Vitamin B Complex/Folic Acid (B-Complex Tablet) 0.4 Mg Tablet, 1 TAB PO DAILY, (Reported) Scheduled PRN Acetaminophen (Acetaminophen) 500 Mg Tablet, 500 MG PO Q4H PRN for PAIN, (Reported) Albuterol Sulfate (Ventolin Hfa) 18 Gm Hfa.aer.ad, 2 PUFF INH Q4-6HP PRN for wheezing, (Reported) Ipratropium/Albuterol Sulfate (Iprat-Albut 0.5-3(2.5) mg/3 ml) 3 Ml Ampul.neb, 1 VIAL INH Q4H PRN for SHORTNESS OF BREATH, (Reported) Polyvinyl Alcohol (Artificial Tears) 1.4 % [place], 1 DROP OU QID PRN for DRY EYES, (Reported) Allergies Coded Allergies: No Known Allergies (Unverified , 12/25/18) A-FIB/CHADSVASC A-FIB History Current/History of A-Fib/PAF?: Yes Current PO Anticoag Therapy: Yes Vital Signs Vital Signs Date Time Temp Pulse Resp B/P (MAP) Pulse Ox O2 Delivery O2 Flow Rate FiO2 12/27/20 18:15 96 93 12/27/20 17:21 20 146/67 (93) Nasal Cannula 2.0 12/27/20 13:04 98.0 Laboratory Data Labs 24H Laboratory Tests 2 12/27/20 13:54: Coronavirus (COVID-19)(PCR) NEGATIVE, Influenza Type A (RT-PCR) NEGATIVE, Influenza Type B (RT-PCR) NEGATIVE, Respiratory Syncytial Virus (PCR) NEGATIVE 12/27/20 14:02: Blood Gas Bicarbonate Standard 36.6, Venous Blood pH 7.268L, Venous Blood Partial Pressure CO2 100.1H, Venous Blood Partial Pressure O2 56.1H, Venous Blood Total Carbon Dioxide 47.8H, Venous Blood HCO3 44.7H, Venous Blood Oxygen Saturation 85.5H, Venous Blood Base Excess 13.1H, Lactic Acid Level 1.2 12/27/20 14:03: Immature Granulocyte % (Auto) 0.6, Neutrophils (%) (Auto) 91.2H, Lymphocytes (%) (Auto) 5.9L, Monocytes (%) (Auto) 2.2, Eosinophils (%) (Auto) 0.0, Basophils (%) (Auto) 0.1, Neutrophils # (Auto) 14.0H, Lymphocytes # (Auto) 0.9L, Monocytes # (Auto) 0.3, Eosinophils # (Auto) 0.0, Basophils # (Auto) 0.0, Nucleated Red Blood Cells % (auto) 0.0, Prothrombin Time 15.4H, Prothromb Time International Ratio 1.20, Anion Gap 0L, Glomerular Filtration Rate 46.1, Calcium Level 9.5, Total Bilirubin 0.2, Direct Bilirubin < 0.1, Aspartate Amino Transf (AST/SGOT) 13, Alanine Aminotransferase (ALT/SGPT) 23, Alkaline Phosphatase 91, Total Creatine Kinase 49, Creatine Kinase MB 3.0, Creatine Kinase MB Relative Index 6.12H, Troponin I 0.03, GS-Zee-J-Type Natriuretic Peptide 1519H, Total Protein 7.1, Albumin 3.2, Albumin/Globulin Ratio 0.8L 12/27/20 15:06: POC pH (Misc Panel) 7.279L, POC Base Excess (Misc Panel) 18.0H, POC Saturated Percent O2 (Misc) 96, POC pO2 (Misc Panel) 96.0, POC pCO2 (Misc Panel) 95.9*H, POC HCO3 (Misc Panel) 44.9H, POC Total CO2 (Misc Panel) 48.0H 12/27/20 17:55: POC pH (Misc Panel) 7.327L, POC Base Excess (Misc Panel) 20.0H, POC Saturated Percent O2 (Misc) 97, POC pO2 (Misc Panel) 102.0, POC pCO2 (Misc Panel) 87.8*H, POC HCO3 (Misc Panel) 45.9H, POC Total CO2 (Misc Panel) 49.0H CBC/BMP Laboratory Tests 12/27/20 14:03 Microbiology Microbiology 12/27/20 Blood Culture, Received Pending 12/27/20 Blood Culture, Received Pending Plan / VTE VTE Prophylaxis Ordered?: Yes GME ATTESTATION GME ATTESTATION My faculty preceptor for this patient encounter was physically present during the encounter and was fully available. All aspects of the patient interview, examination, medical decision making process, and medical care plan development were reviewed and approved by the faculty preceptor. The faculty preceptor is aware and concurs with the plan as stated in the body of this note and will attest to such by his/her cosignature. ATTENDING NOTE Time of service 829pm is an 85 yr old w a hx of Cor pulmonale, Pulm HTN, COPD, O2 dependent respiratory failure, NIDDM, Afib, CKD3 & obesity who was brought in for evaluation of dyspnea, hypoxia and lethargy & will be admitted for management of encephalopathy 2/2 hypercapnea, acute hypercapnic respiratory failure, acute HFpEF & work-up for SIRS. Rest per 's H&P Abhinav Orozco DO Dec 27, 2020 20:39 SUSAN IRVING MD Dec 28, 2020 05:26
[2020-12-27] MEDS ORDERED: IPRATROPIUM 0.5MG/ALBUTEROL 2.5MG INH SOL UD 3ML (DUONEB) NEB PRN (20:40)
[2020-12-27] MEDS ORDERED: guaiFENesin ER 600 MG TAB PO SCH (21:00)
[2020-12-27] MEDS ORDERED: oxyBUTYnin 5 MG TAB PO SCH (21:00)
[2020-12-27] MEDS ORDERED: AZITHROMYCIN INJ 500 MG, VIAL MATE ADAPTER 1 EACH in NS 250 ML IV SCH (22:00)
[2020-12-27 22:12] LABS: ABG BASE EXCESS 10.3 (-2.0-2.0); ABG HCO3 40.6 MEQ/L (22.0-26.0); ABG O2 SATURATION 98.5 % (95.0-99.0); ABG PARTIAL PRESSURE O2 120.6 mmHg (75.0-100.0); ABG STANDARD HCO3 34.1 MEQ/L (22.0-26.0); ABG TOTAL CO2 43.3 MEQ/L (23.0-31.0); ABG pH (ARTERIAL) 7.281 UNITS (7.350-7.450)
--- NOTE | 2020-12-27 22:12 | REPVR ---
PROCEDURE INFORMATION: Exam: CT Angiography Chest With Contrast Exam date and time: 12/27/2020 9:23 PM Age: 85 years old Clinical indication: Other: Worsening hypercapnea in PT w copd R/O pe and pna TECHNIQUE: Imaging protocol: Computed tomographic angiography of the chest with contrast. 3D rendering (Not supervised by radiologist): MIP and/or 3D reconstructed images were created by the technologist. Radiation optimization: All CT scans at this facility use at least one of these dose optimization techniques: automated exposure control; mA and/or kV adjustment per patient size (includes targeted exams where dose is matched to clinical indication); or iterative reconstruction. Contrast material: ISOVUE 370; Contrast volume: 75 ml; Contrast route: INTRAVENOUS (IV); COMPARISON: CT Chest without contrast 05/26/2019 6:06 PM FINDINGS: Pulmonary arteries: The main pulmonary artery measures 42 mm. No pulmonary embolism is identified. Aorta: The ascending thoracic aorta measures 34 mm. Lungs: Slight interstitial coarsening with mild bibasilar fibro-atelectatic change and minimal scattered infiltrates, greatest in the posterolateral right upper lobe. Pleural spaces: Unremarkable. No pneumothorax. No pleural effusion. Heart: Unremarkable. No cardiomegaly. No pericardial effusion. Lymph nodes: Unremarkable. No enlarged lymph nodes. Diaphragm: General hypoinflation with elevation of the right hemidiaphragm. Liver: Probable right hepatic cyst measuring 17 mm with a Hounsfield measurement of 14. Kidneys and ureters: There is a right renal cyst measuring 12 mm with a Hounsfield measurement of -14 consistent with a simple cyst. Bones/joints: Thoracic kyphosis with prominent wedge compression of T6 and to a lesser degree T5 with mild superior endplate depression of T3 and L2. Soft tissues: Unremarkable. IMPRESSION: 1. General hypoinflation with elevation of the right hemidiaphragm which is similar to 05/26/2019. There is thoracic kyphosis and prominent compression of T6 and to a lesser degree T5 which are similar to the prior study. 2. Slight interstitial coarsening with mild bibasilar fibro-atelectatic change with minimal scattered infiltrates, greatest in the posterolateral right upper lobe which is improved since the prior study. There is also resolution of bilateral pleural effusions with decreased adjacent atelectasis. 3. Enlarged main pulmonary artery measuring 42 mm which may be seen with pulmonary hypertension but is similar to the prior study. 4. Otherwise negative CTA chest. No pulmonary embolism is identified. COMMENTS: Consistent with the [employer]'s Incidental Findings Committee white paper (J Am Jen Radiol 2018): Any incidental renal lesion less than 1 cm or classified as too small to characterize, or any incidental cystic renal lesion characterized as simple-appearing, is likely benign. No follow-up imaging is recommended for these lesions per consensus recommendations based on imaging criteria. Electronically signed by: Miguel Hermosillo On 12/27/2020 22:12:26 PM
[2020-12-27 22:13] LABS: ABG PARTIAL PRESSURE CO2 88.1 mmHg (35.0-45.0)
[2020-12-27 22:41] LABS: HEMATOCRIT 41.3 % (36.0-47.0); HEMOGLOBIN 12.2 g/dl (12.0-15.5); MEAN CORPUSCULAR HEMOGLOBIN 28.5 pg (27.0-33.0); MEAN CORPUSCULAR HGB CONC 29.5 g/dl (32.0-36.5); MEAN CORPUSCULAR VOLUME 96.5 fl (80.0-96.0); PLATELET COUNT, AUTOMATED 190 10^3/uL (150-450); RED BLOOD COUNT 4.28 10^6/uL (4.00-5.40); WHITE BLOOD COUNT 13.1 10^3/uL (4.0-10.0)
[2020-12-27 22:55] LABS: CALCIUM LEVEL 8.8 MG/DL (8.8-10.2); CREATININE FOR GFR 1.11 MG/DL (0.55-1.30); POTASSIUM SERUM 4.3 MEQ/L (3.5-5.1)
[2020-12-27 23:44] VITALS: BP 132/76
[2020-12-28] MEDS ORDERED: cefTRIAXone SOD 1 GM in D5W MINI-BAG PLUS 50 ML IV SCH ×2
[2020-12-28] MEDS: DOCUSATE SODIUM 100MG CAPSULE PO SCH ×3 (00:19→20:49)
[2020-12-28] MEDS: ATORVASTATIN 20 MG TAB PO SCH ×2 (00:19→20:49)
[2020-12-28] MEDS: BENZONATATE 100 MG CAP PO SCH ×4 (00:20→20:49)
[2020-12-28] MEDS: APIXABAN 5 MG TAB (ELIQUIS) PO SCH ×3 (00:20→20:50)
[2020-12-28] MEDS: FUROSEMIDE 40MG/4ML VIAL (J1940) IV SCH ×2 (03:27)
[2020-12-28 04:00] VITALS: BP 119/56
[2020-12-28 05:54] LABS: ABG BASE EXCESS 12.6 (-2.0-2.0); ABG HCO3 41.3 MEQ/L (22.0-26.0); ABG O2 SATURATION 94.5 % (95.0-99.0); ABG PARTIAL PRESSURE O2 71.1 mmHg (75.0-100.0); ABG STANDARD HCO3 36.3 MEQ/L (22.0-26.0); ABG TOTAL CO2 43.6 MEQ/L (23.0-31.0); ABG pH (ARTERIAL) 7.359 UNITS (7.350-7.450)
[2020-12-28 05:59] LABS: APPEARANCE, URINE CLOUDY (CLEAR); BACTERIA, URINE AUTO 1+ (NEGATIVE); BILIRUBIN, URINE AUTO NEGATIVE (NEGATIVE); BLOOD, URINE BLOOD NEGATIVE (NEGATIVE); COLOR, URINE YELLOW (YELLOW); GLUCOSE, URINE (UA) AUTO NEGATIVE (NEGATIVE); KETONE, URINE AUTO NEGATIVE (NEGATIVE); LEUKOCYTE ESTERASE, URINE AUTO 3+ (NEGATIVE); NITRITE, URINE AUTO NEGATIVE (NEGATIVE); PROTEIN, URINE AUTO NEGATIVE (NEGATIVE); RBC, URINE AUTO 6 /HPF (0-3); SPECIFIC GRAVITY URINE AUTO 1.039 (1.002-1.035); SQUAMOUS EPITHELIAL CELL UR AU 2 /HPF (0-6); UROBILINOGEN, URINE AUTO 0.2 mg/dL (0.0-2.0); WBC, URINE AUTO 97 /HPF (0-3)
[2020-12-28 06:45] LABS: HEMOGLOBIN 12.1 g/dl (12.0-15.5); MEAN CORPUSCULAR HEMOGLOBIN 28.7 pg (27.0-33.0); MEAN CORPUSCULAR HGB CONC 30.3 g/dl (32.0-36.5); PLATELET COUNT, AUTOMATED 183 10^3/uL (150-450); RED BLOOD COUNT 4.21 10^6/uL (4.00-5.40)
[2020-12-28 07:05] LABS: CALCIUM LEVEL 8.8 MG/DL (8.8-10.2); CREATININE FOR GFR 1.27 MG/DL (0.55-1.30); GLOMERULAR FILTRATION RATE 42.8 (>32); POTASSIUM SERUM 4.2 MEQ/L (3.5-5.1)
[2020-12-28 08:00] VITALS: BP 138/79
[2020-12-28] MEDS ORDERED: TORSEMIDE 100 MG TAB PO SCH (09:00)
[2020-12-28] MEDS ORDERED: predniSONE 10 MG TAB PO SCH (09:00)
[2020-12-28] MEDS: POTASSIUM CHLORIDE 10 MEQ SR TABLET PO SCH (09:02)
[2020-12-28] MEDS: predniSONE 20 MG TAB PO SCH (09:02)
[2020-12-28] MEDS: SPIRONOLACTONE 25 MG TAB PO SCH (09:02)
[2020-12-28] MEDS: PANTOPRAZOLE 40MG TAB (PROTONIX) PO SCH (09:02)
[2020-12-28] MEDS: TORSEMIDE 100 MG TAB PO SCH (10:08)
[2020-12-28 12:00] VITALS: BP 153/75
--- NOTE | 2020-12-28 14:50 | IPNPDOC ---
Date Seen The patient was seen on 12/28/20. Progress Note SUBJECTIVE: Patient was seen and examined this morning. She had reportedly been admitted for shortness of breath and fatigue. She was altered on presentation and found to be hypercarbic. She has since been continued on her home Trilogy machine settings. Her ABG did improve as did her mental status. This morning the patient herself has no complaints. There were [facility] adverse events [facility] OBJECTIVE PHYSICAL EXAMINATION: VITAL SIGNS: Please see below. GENERAL: Awake, alert, and oriented. Appears in no acute distress. Lying comfortably in bed. HEENT: Atraumatic, normocephalic. Eyes are nonicteric. Trachea is midline. Bilevel mask in place CARDIOVASCULAR: Normal S1, S2. Regular rate and rhythm. No clicks, rubs, or murmurs RESPIRATORY: Clear breath sounds bilaterally. No wheezes rhonchi or rales. Decreased breath sounds throughout ABDOMINAL: Obese. Soft, nondistended. Nontender. Normoactive bowel sounds EXTREMITIES: No edema. Full and equal pulses in bilateral upper and lower extremities NEUROLOGICAL: No focal neurological deficits PSYCHOLOGICAL: Mood and affect appear appropriate LABORATORY DATA, IMAGING STUDIES, MICROBIOLOGY: Please see below. DVT prophylaxis ordered?: Eliquis ASSESSMENT AND PLAN: Patient is a 85 year old female with a past medical history significant for HFpEF, CKD stage III, atrial fibrillation on Eliquis, COPD with chronic hypercarbic hypoxemic respiratory failure on home O2, DMII, and pulmonary hypertension who presented to the [facility] ER with her daughter for increased shortness of breath, fatigue, and altered mental status PROBLEMS: 1. Acute on chronic hypoxemic, hypercarbic respiratory failure 2/2 COPD exacerbation -Patient presented with altered mental status and increased shortness of breath. Likely secondary to COPD exacerbation. ABG demonstrated slight increase in CO2 from baseline. She was continued on her home bilevel settings. She has received IV steroids and breathing treatments. -Repeat ABG in AM demonstrated improvement. Will repeat ABG later in day -Patients daughter is bringing in patients Trilogy machine today -Continue PO prednisone. -Will change to oral Cefdinir today to complete a 5 day course 2. Altered mental status 2/2 metabolic encephalopathy 2/2 hypercarbia -Appears to have resolved. Repeat ABG demonstrated improvement in CO2. Will repeat ABG this afternoon 3. Cor pulmonale, HFpEF -Patient appears well compensated. She was started on Lasix IV however she does not appear to be decompensated. Have discontinued her IV lasix and resumed her home dosing of diuretic. Her shortness of breath appears to be more secondary to a COPD exacerbation -Will continue fluid restriction and 2g sodium diet 4. Paroxysmal Atrial Fibrillation -Continued on Eliquis -Cardizem for rate control 5. HLD -Continue atorvastatin 6. NIDDM -Sliding scale insulin coverage ACHS 7. CKD stage 3 -Patient at baseline 8. DVT prophylaxis -Eliquis DISPOSITION: Patient improving clinically. Patients daughter bringing in her Trilogy machine. Will continue PO medicines today. Likely discharge in 24-48 hours VS, I&O, 24H, Fishbone Vital Signs/I&O Vital Signs Date Time Temp Pulse Resp B/P (MAP) Pulse Ox O2 Delivery O2 Flow Rate FiO2 12/28/20 12:00 28 12/28/20 12:00 97.0 79 20 153/75 (101) 93 NIPPV (BIPAP/CPAP) 12/27/20 23:45 2.0 I&O- Last 24 Hours up to 6 AM 12/28/20 06:00 Intake Total 305 ml Output Total 425 ml Balance -120 ml Laboratory Data 24H LABS Laboratory Tests 2 12/27/20 15:06: POC pH (Misc Panel) 7.279L, POC Base Excess (Misc Panel) 18.0H, POC Saturated Percent O2 (Misc) 96, POC pO2 (Misc Panel) 96.0, POC pCO2 (Misc Panel) 95.9*H, POC HCO3 (Misc Panel) 44.9H, POC Total CO2 (Misc Panel) 48.0H 12/27/20 17:55: POC pH (Misc Panel) 7.327L, POC Base Excess (Misc Panel) 20.0H, POC Saturated Percent O2 (Misc) 97, POC pO2 (Misc Panel) 102.0, POC pCO2 (Misc Panel) 87.8*H, POC HCO3 (Misc Panel) 45.9H, POC Total CO2 (Misc Panel) 49.0H 12/27/20 21:10: Blood Gas Bicarbonate Standard 34.1H, Arterial Blood pH 7.281L, Arterial Blood Partial Pressure CO2 88.1*H, Arterial Blood Partial Pressure O2 120.6H, Arterial Blood Total CO2 43.3H, Arterial Blood HCO3 40.6H, Arterial Blood Base Excess 10.3H, Arterial Blood Oxygen Saturation 98.5 12/27/20 22:12: Nucleated Red Blood Cells % (auto) 0.0, Anion Gap 3L, Glomerular Filtration Rate 50.0, Lactic Acid Level 0.8, Calcium Level 8.8, Troponin I 0.03, Procalcitonin 0.06 12/28/20 02:30: Urine Color YELLOW, Urine Appearance CLOUDYH, Urine pH 6.0, Urine Specific [place] 1.039, Urine Protein NEGATIVE, Urine Glucose (Auto)(UA) NEGATIVE, Urine Ketones (Auto) NEGATIVE, Urine Blood NEGATIVE, Urine Nitrite NEGATIVE, Urine Bilirubin NEGATIVE, Urine Urobilinogen 0.2, Urine Leukocyte Esterase (Auto) 3+H, Urine WBC (Auto) 97H, Urine RBC (Auto) 6H, Urine Hyaline Casts (Auto) 1, Urine Bacteria (Auto) 1+H, Urine Squamous Epithelial Cells 2, Urine Sperm (Auto) , Methicillin-Resist S.aureus DNA PCR NOT DETECTED 12/28/20 05:55: Blood Gas Bicarbonate Standard 36.3H, Arterial Blood pH 7.359, Arterial Blood Partial Pressure CO2 75.0*H, Arterial Blood Partial Pressure O2 71.1L, Arterial Blood Total CO2 43.6H, Arterial Blood HCO3 41.3H, Arterial Blood Base Excess 12.6H, Arterial Blood Oxygen Saturation 94.5L 12/28/20 06:30: Nucleated Red Blood Cells % (auto) 0.0, Anion Gap 1L, Glomerular Filtration Rate 42.8, Calcium Level 8.8, Troponin I 0.02# CBC/BMP Laboratory Tests 12/27/20 22:12 12/28/20 06:30 Microbiology Microbiology 12/28/20 Urine Culture, Received Pending 12/27/20 Blood Culture, Received Pending 12/27/20 Blood Culture, Received Pending 12/27/20 Blood Culture - Preliminary, Resulted No growth after 24 hours . All specim... 12/27/20 Blood Culture - Preliminary, Resulted No growth after 24 hours . All specim... GME ATTESTATION GME ATTESTATION My faculty preceptor for this patient encounter was physically present during the encounter and was fully available. All aspects of the patient interview, examination, medical decision making process, and medical care plan development were reviewed and approved by the faculty preceptor. The faculty preceptor is aware and concurs with the plan as stated in the body of this note and will attest to such by his/her cosignature. ATTENDING NOTE Attending Attestation: Patient independently seen and examined. I have discussed in detail with the resident / student the findings and plan of treatment as documented by the resid ent / student. I agree with their findings and treatment plan and have edited their documentation. I will continue to follow the patient during this hospital stay. TANYA MAHAJAN DO Dec 28, 2020 14:50 SEAN TRUJILLO MD Dec 29, 2020 09:29
[2020-12-28 15:34] LABS: ABG BASE EXCESS 10.1 (-2.0-2.0); ABG HCO3 35.2 MEQ/L (22.0-26.0); ABG O2 SATURATION 95.6 % (95.0-99.0); ABG PARTIAL PRESSURE CO2 49.1 mmHg (35.0-45.0); ABG PARTIAL PRESSURE O2 75.1 mmHg (75.0-100.0); ABG STANDARD HCO3 33.8 MEQ/L (22.0-26.0); ABG TOTAL CO2 36.7 MEQ/L (23.0-31.0); ABG pH (ARTERIAL) 7.473 UNITS (7.350-7.450)
[2020-12-28 16:00] VITALS: BP 133/63
[2020-12-28 19:31] VITALS: BP 134/58
[2020-12-28] MEDS: CEFDINIR 300 MG CAP (OMNICEF) PO SCH (20:49)
[2020-12-28] MEDS ORDERED: DEXTROSE 50% 50 ML SYRINGE IV PRN (22:20)
[2020-12-28] MEDS ORDERED: GLUCOSE 4GM CHEW TABLET PO PRN (22:20)
[2020-12-28] MEDS ORDERED: GLUCAGON INJ 1MG VIAL SC PRN (22:20)
[2020-12-29] VITALS (7 sets, daily range): BP systolic 126–171; BP diastolic 71–108; O2SAT 95
[2020-12-29 07:23] LABS: HEMATOCRIT 41.4 % (36.0-47.0); HEMOGLOBIN 12.5 g/dl (12.0-15.5); MEAN CORPUSCULAR HEMOGLOBIN 28.9 pg (27.0-33.0); MEAN CORPUSCULAR HGB CONC 30.2 g/dl (32.0-36.5); MEAN CORPUSCULAR VOLUME 95.6 fl (80.0-96.0); PLATELET COUNT, AUTOMATED 225 10^3/uL (150-450); RED BLOOD COUNT 4.33 10^6/uL (4.00-5.40); WHITE BLOOD COUNT 14.9 10^3/uL (4.0-10.0)
[2020-12-29] MEDS: HumaLOG INSULIN (NovoLOG) PER UNIT SC SCH ×3 (07:30→17:56)
[2020-12-29 07:44] LABS: BLOOD UREA NITROGEN 31 MG/DL (7-18); CALCIUM LEVEL 9.5 MG/DL (8.8-10.2); CARBON DIOXIDE LEVEL 43 MEQ/L (21-32); CHLORIDE LEVEL 96 MEQ/L (98-107); GLOMERULAR FILTRATION RATE 38.2 (>32); GLUCOSE, FASTING 99 MG/DL (70-100); POTASSIUM SERUM 3.9 MEQ/L (3.5-5.1); SODIUM LEVEL 138 MEQ/L (136-145)
[2020-12-29] MEDS: predniSONE 20 MG TAB PO SCH (07:56)
[2020-12-29] MEDS: SPIRONOLACTONE 25 MG TAB PO SCH (07:56)
[2020-12-29] MEDS: APIXABAN 5 MG TAB (ELIQUIS) PO SCH ×2 (07:57→21:06)
[2020-12-29] MEDS: TORSEMIDE 100 MG TAB PO SCH (07:57)
[2020-12-29] MEDS: CEFDINIR 300 MG CAP (OMNICEF) PO SCH ×2 (07:57→21:07)
[2020-12-29] MEDS: PANTOPRAZOLE 40MG TAB (PROTONIX) PO SCH (07:58)
[2020-12-29] MEDS: BENZONATATE 100 MG CAP PO SCH ×3 (07:58→21:07)
[2020-12-29] MEDS: DOCUSATE SODIUM 100MG CAPSULE PO SCH ×2 (07:58→21:00)
[2020-12-29] MEDS: POTASSIUM CHLORIDE 10 MEQ SR TABLET PO SCH (07:59)
--- NOTE | 2020-12-29 11:32 | IPNPDOC ---
Date Seen The patient was seen on 12/29/20. Progress Note SUBJECTIVE: Patient was seen and examined this morning. She currently has no new complaints. She was unable to work with PT yesterday due to requiring bilevel. Plan to work with PT today OBJECTIVE PHYSICAL EXAMINATION: VITAL SIGNS: Please see below. GENERAL: Awake, alert, and oriented. Appears in no acute distress. Lying comfortably in bed. HEENT: Atraumatic, normocephalic. Eyes are nonicteric. Trachea is midline. Bilevel mask in place CARDIOVASCULAR: Normal S1, S2. Regular rate and rhythm. No clicks, rubs, or murmurs RESPIRATORY: Clear breath sounds bilaterally. No wheezes rhonchi or rales. Decreased breath sounds throughout ABDOMINAL: Obese. Soft, nondistended. Nontender. Normoactive bowel sounds EXTREMITIES: No edema. Full and equal pulses in bilateral upper and lower extrem ities NEUROLOGICAL: No focal neurological deficits PSYCHOLOGICAL: Mood and affect appear appropriate LABORATORY DATA, IMAGING STUDIES, MICROBIOLOGY: Please see below. 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 Acute on chronic hypoxemic, hypercarbic respiratory failure 2/2 COPD exacerbation -Resolved. ABG from yesterday demonstrated improvement. Mentation has improved as well. Likely 2/2 COPD exacerbation -Will continue PO prednisone for 5 day course -Will continue Cefdinir PO for 5 days 2. Altered mental status 2/2 metabolic encephalopathy 2/2 hypercarbia -Resolved with bilevel and treatment of COPD exacerbation 3. Elevation in Cr. -Elevated Cr today. Not meeting ZAKIYA criteria currently. She did receive IV lasix yesterday. Will order a U/A, urine urea and urine cr. Renal U/S ordered as well -Will follow-up BMP in the AM 4. Cor pulmonale, HFpEF -Patient appears euvolemic. Will continue her home medications -Will continue fluid restriction and 2g sodium diet 5. Paroxysmal Atrial Fibrillation -Continued on Eliquis -Cardizem for rate control 6. HLD -Continue atorvastatin 7. NIDDM -Sliding scale insulin coverage ACHS 8. CKD stage 3 -Patient at baseline 9. DVT prophylaxis -Eliquis DISPOSITION: Patient improving clincially. Currently working with PT today. Slight bump in creatinine. Will trend. Likely discharge in 24-48 hours VS, I&O, 24H, Fishbone Vital Signs/I&O Vital Signs Date Time Temp Pulse Resp B/P (MAP) Pulse Ox O2 Delivery O2 Flow Rate FiO2 12/29/20 08:00 2.0 12/29/20 08:00 96.7 95 16 126/72 (90) 95 Nasal Cannula 12/28/20 12:00 28 I&O- Last 24 Hours up to 6 AM 12/29/20 06:00 Intake Total 720 ml Output Total 1395 ml Balance -675 ml Laboratory Data 24H LABS Laboratory Tests 2 12/28/20 14:59: Blood Gas Bicarbonate Standard 33.8H, Arterial Blood pH 7.473H, Arterial Blood Partial Pressure CO2 49.1H, Arterial Blood Partial Pressure O2 75.1, Arterial Blood Total CO2 36.7H, Arterial Blood HCO3 35.2H, Arterial Blood Base Excess 10.1H, Arterial Blood Oxygen Saturation 95.6 12/28/20 22:28: Bedside Glucose (Misc Panel) 188H 12/29/20 07:12: Nucleated Red Blood Cells % (auto) 0.0, Anion Gap , Glomerular Filtration Rate 38.2, Calcium Level 9.5 12/29/20 07:20: Bedside Glucose (Misc Panel) 95 CBC/BMP Laboratory Tests 12/29/20 07:12 Microbiology Microbiology 12/28/20 Urine Culture, Received Pending 12/27/20 Blood Culture - Preliminary, Resulted No growth after 24 hours . All specim... 12/27/20 Blood Culture - Preliminary, Resulted No growth after 24 hours . All specim... 12/27/20 Blood Culture - Preliminary, Resulted No growth after 24 hours . All specim... 12/27/20 Blood Culture - Preliminary, Resulted No growth after 24 hours . All specim... GME ATTESTATION GME ATTESTATION My faculty preceptor for this patient encounter was physically present during the encounter and was fully available. All aspects of the patient interview, examination, medical decision making process, and medical care plan development were reviewed and approved by the faculty preceptor. The faculty preceptor is aware and concurs with the plan as stated in the body of this note and will attest to such by his/her cosignature. ATTENDING NOTE Attending Attestation: Patient independently seen and examined. I have discussed in detail with the resident / student the findings and plan of treatment as documented by the resident / student. I agree with their findings and treatment plan and have edited their documentation. I will continue to follow the patient during this hospital stay. TANYA MAHAJAN DO Dec 29, 2020 11:32 SEAN TRUJILLO MD Dec 31, 2020 07:01
[2020-12-29 14:35] LABS: APPEARANCE, URINE CLOUDY (CLEAR); BACTERIA, URINE AUTO NEGATIVE (NEGATIVE); BILIRUBIN, URINE AUTO NEGATIVE (NEGATIVE); BLOOD, URINE BLOOD 2+ (NEGATIVE); COLOR, URINE YELLOW (YELLOW); GLUCOSE, URINE (UA) AUTO NEGATIVE (NEGATIVE); KETONE, URINE AUTO TRACE mg/dL (NEGATIVE); LEUKOCYTE ESTERASE, URINE AUTO 3+ (NEGATIVE); MUCUS, URINE SMALL (NEGATIVE); NITRITE, URINE AUTO NEGATIVE (NEGATIVE); PROTEIN, URINE AUTO 1+ mg/dL (NEGATIVE); RBC, URINE AUTO 40 /HPF (0-3); SPECIFIC GRAVITY URINE AUTO 1.011 (1.002-1.035); SQUAMOUS EPITHELIAL CELL UR AU 1 /HPF (0-6); UROBILINOGEN, URINE AUTO 0.2 mg/dL (0.0-2.0); WBC, URINE AUTO 96 /HPF (0-3)
[2020-12-29 14:55] LABS: CREATININE,RANDOM URINE 59.5 MG/DL; UREA NITROGEN RANDOM URINE 434 MG/DL
--- NOTE | 2020-12-29 15:55 | REP ---
INDICATION: ZAKIYA. COMPARISON: None. TECHNIQUE: Multiple sonographic images of the kidneys. FINDINGS: The right kidney measures 9.4 x 5.0 x 5.2 cm. The left kidney measures 9.4 x 4.2 x 5.0 cm. The kidneys are in the low normal size range. Renal cortical echogenicity is normal bilaterally. There is no hydronephrosis or hydroureter on the right or the left. There are no renal calculi. There are no solid renal masses. There is a right renal 1.6 cm cortical cyst laterally at the lower pole, have the appearance of a Bosniak type 1 cyst. Incidentally, a 2.5 cm gallbladder calculus is identified. Bladder: There is a Timmons catheter, the bladder is collapsed and cannot be further evaluated. IMPRESSION: 1.6 cm right renal cyst, having the ultrasound appearance of the Bosniak type 1 cyst. The kidneys are in the low normal size range. A 2.5 cm gallbladder calculus is incidentally identified. <Electronically signed by Cayetano Hall > 12/29/20 [id number]
[2020-12-29] MEDS: ATORVASTATIN 20 MG TAB PO SCH (21:07)
[2020-12-30 01:30] VITALS: O2SAT 94
[2020-12-30 06:00] VITALS: BP 162/86
[2020-12-30 06:38] LABS: HEMATOCRIT 41.2 % (36.0-47.0); HEMOGLOBIN 12.2 g/dl (12.0-15.5); MEAN CORPUSCULAR HEMOGLOBIN 28.5 pg (27.0-33.0); MEAN CORPUSCULAR HGB CONC 29.6 g/dl (32.0-36.5); MEAN CORPUSCULAR VOLUME 96.3 fl (80.0-96.0); PLATELET COUNT, AUTOMATED 214 10^3/uL (150-450); RED BLOOD COUNT 4.28 10^6/uL (4.00-5.40)
[2020-12-30 07:02] LABS: CREATININE FOR GFR 1.44 MG/DL (0.55-1.30)
[2020-12-30] MEDS: HumaLOG INSULIN (NovoLOG) PER UNIT SC SCH ×3 (07:30→17:41)
[2020-12-30] MEDS: BENZONATATE 100 MG CAP PO SCH ×3 (09:51→22:31)
[2020-12-30] MEDS: CEFDINIR 300 MG CAP (OMNICEF) PO SCH ×2 (09:51→22:31)
[2020-12-30] MEDS: APIXABAN 5 MG TAB (ELIQUIS) PO SCH ×2 (09:51→22:30)
[2020-12-30] MEDS: DOCUSATE SODIUM 100MG CAPSULE PO SCH ×2 (09:51→22:30)
[2020-12-30] MEDS: PANTOPRAZOLE 40MG TAB (PROTONIX) PO SCH (09:51)
[2020-12-30] MEDS: predniSONE 20 MG TAB PO SCH (09:51)
[2020-12-30] MEDS: SPIRONOLACTONE 25 MG TAB PO SCH (09:52)
[2020-12-30] MEDS: POTASSIUM CHLORIDE 10 MEQ SR TABLET PO SCH (09:52)
--- NOTE | 2020-12-30 13:08 | IPNPDOC ---
Date Seen The patient was seen on 12/30/20. Progress Note SUBJECTIVE: Patient was seen and examined this morning. She currently has no new complaints. No adverse events have been reported overnight OBJECTIVE PHYSICAL EXAMINATION: VITAL SIGNS: Please see below. GENERAL: Awake, alert, and oriented. Appears in no acute distress. Lying comfortably in bed. HEENT: Atraumatic, normocephalic. Eyes are nonicteric. Trachea is midline. Bilevel mask in place CARDIOVASCULAR: Normal S1, S2. Regular rate and rhythm. No clicks, rubs, or murmurs RESPIRATORY: Clear breath sounds bilaterally. No wheezes rhonchi or rales. Decreased breath sounds throughout ABDOMINAL: Obese. Soft, nondistended. Nontender. Normoactive bowel sounds EXTREMITIES: No edema. Full and equal pulses in bilateral upper and lower extremities NEUROLOGICAL: No focal neurological deficits PSYCHOLOGICAL: Mood and affect appear appropriate LABORATORY DATA, IMAGING STUDIES, MICROBIOLOGY: Please see below. Echocardiogram: . 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 PROBLEMS: 1. Acute on chronic hypoxemic, hypercarbic respiratory failure 2/2 COPD exacerbation -Resolved -Will continue PO prednisone for 5 day course. Currently on day 2 of 5 -Will continue Cefdinir PO for 5 days. Currently on day 2 of 5 2. Altered mental status 2/2 metabolic encephalopathy 2/2 hypercarbia -Resolved with bilevel and treatment of COPD exacerbation 3. Elevation in Cr. -Elevated Cr today. Not meeting ZAKIYA criteria currently. She did receive IV lasix yesterday. Will order a U/A, urine urea and urine cr. Renal U/S ordered as well -Appears pre-renal in etiology. Likely due to poor oral intake during her acute illness. Additionally she like has contrast induced nephropathy as she did receive a CTA in the ED on admission -Cr appears to have plateued. Will continue to trend. Will hold Demedex dose today 4. UTI -Patients U/A with culture grew proteus mirabilis. She denies any urinary complaints. She is already on cefdinir for COPD exacerbation which would adequately treat her UTI 5. Cor pulmonale, HFpEF -Patient appears euvolemic. Will continue her home medications -Will continue fluid restriction and 2g sodium diet 6. Paroxysmal Atrial Fibrillation -Continued on Eliquis -Cardizem for rate control 7. HLD -Continue atorvastatin 8. NIDDM -Sliding scale insulin coverage ACHS 9. CKD stage 3 -Patient at baseline 10. DVT prophylaxis -Eliquis DISPOSITION: Likely D/C home with services tomorrow. Patient is planned to work with PT today. Repeat BMP in the AM to ensure ZAKIYA is resolving VS, I&O, 24H, Fishbone Vital Signs/I&O Vital Signs Date Time Temp Pulse Resp B/P (MAP) Pulse Ox O2 Delivery O2 Flow Rate FiO2 12/30/20 09:51 86 162/86 12/30/20 09:00 2.0 12/30/20 06:00 97.1 17 96 Nasal Cannula 12/28/20 12:00 28 I&O- Last 24 Hours up to 6 AM 12/30/20 06:00 Intake Total 810 ml Output Total 1290 ml Balance -480 ml Laboratory Data 24H LABS Laboratory Tests 2 12/29/20 14:16: Urine Color YELLOW, Urine Appearance CLOUDYH, Urine pH 6.0, Urine Specific [place] 1.011, Urine Protein 1+H, Urine Glucose (Auto)(UA) NEGATIVE, Urine Ketones (Auto) TRACEH, Urine Blood 2+H, Urine Nitrite NEGATIVE, Urine Bilirubin NEGATIVE, Urine Urobilinogen 0.2, Urine Leukocyte Esterase (Auto) 3+H, Urine WBC (Auto) 96H, Urine RBC (Auto) 40H, Urine Hyaline Casts (Auto) 3, Urine Bacteria (Auto) NEGATIVE, Urine Squamous Epithelial Cells 1, Urine Mucus (Auto) SMALL, Urine Sperm (Auto) , Urine Random Creatinine 59.5, Urine Random Urea Nitrogen 434 12/29/20 16:35: Bedside Glucose (Misc Panel) 204H 12/29/20 20:24: Bedside Glucose (Misc Panel) 139H 12/30/20 05:59: Nucleated Red Blood Cells % (auto) 0.0, Anion Gap 1L, Glomerular Filtration Rate 37.0, Calcium Level 9.0 12/30/20 11:46: Bedside Glucose (Misc Panel) 181H CBC/BMP Laboratory Tests 12/30/20 05:59 Microbiology Microbiology 12/28/20 Urine Culture - Final, Complete Proteus Mirabilis 12/27/20 Blood Culture - Preliminary, Resulted No Growth after 48 hours. All Specime... 12/27/20 Blood Culture - Preliminary, Resulted No Growth after 48 hours. All Specime... 12/27/20 Blood Culture - Preliminary, Resulted No Growth after 48 hours. All Specime... 12/27/20 Blood Culture - Preliminary, Resulted No Growth after 48 hours. All Specime... GME ATTESTATION GME ATTESTATION My faculty preceptor for this patient encounter was physically present during the encounter and was fully available. All aspects of the patient interview, examination, medical decision making process, and medical care plan development were reviewed and approved by the faculty preceptor. The faculty preceptor is aware and concurs with the plan as stated in the body of this note and will attest to such by his/her cosignature. ATTENDING NOTE Attending Attestation: Patient independently seen and examined. I have discussed in detail with the resident / student the findings and plan of treatment as documented by the resident / student. I agree with their findings and treatment plan and have edited their documentation. I will continue to follow the patient during this hospital stay. TANYA MAHAJAN DO Dec 30, 2020 13:08 SEAN TRUJILLO MD Dec 31, 2020 07:30
[2020-12-30 14:00] VITALS: BP 114/81
[2020-12-30 22:00] VITALS: BP 134/88
[2020-12-30 22:30] VITALS: O2SAT 92
[2020-12-30] MEDS: ATORVASTATIN 20 MG TAB PO SCH (22:31)
[2020-12-30] MEDS ORDERED: MOM 30ML SUSPENSION UDC PO PRN (23:15)
[2020-12-30] MEDS: guaiFENesin ER 600 MG TAB PO SCH ×2 (23:31→23:35)
[2020-12-31] MEDS ORDERED: guaiFENesin SYRUP 200 MG/10 ML UDC PO PRN (00:10)
[2020-12-31 06:00] VITALS: BP 120/76
[2020-12-31 07:12] LABS: BASO % 0.1 % (0.0-1.0); EOS % 0.4 % (0.0-3.0); HEMOGLOBIN 11.9 g/dl (12.0-15.5); LYMPH # 1.5 10^3/uL (1.5-5.0); LYMPH % 13.4 % (24.0-44.0); MEAN CORPUSCULAR HEMOGLOBIN 28.6 pg (27.0-33.0); MEAN CORPUSCULAR HGB CONC 28.3 g/dl (32.0-36.5); MONO # 0.9 10^3/uL (0.0-0.8); MONO % 8.2 % (2.0-8.0); NEUTROPHILS # 8.8 10^3/uL (1.5-8.5); NEUTROPHILS % 77.4 % (36.0-66.0); PLATELET COUNT, AUTOMATED 183 10^3/uL (150-450); RED BLOOD COUNT 4.16 10^6/uL (4.00-5.40); WHITE BLOOD COUNT 11.3 10^3/uL (4.0-10.0)
[2020-12-31 08:08] LABS: BLOOD UREA NITROGEN 30 MG/DL (7-18); CALCIUM LEVEL 8.7 MG/DL (8.8-10.2); CARBON DIOXIDE LEVEL 45 MEQ/L (21-32); CHLORIDE LEVEL 105 MEQ/L (98-107); GLOMERULAR FILTRATION RATE 50.5 (>32); GLUCOSE, FASTING 117 MG/DL (70-100); POTASSIUM SERUM 4.4 MEQ/L (3.5-5.1); SODIUM LEVEL 147 MEQ/L (136-145)
[2020-12-31] MEDS: CEFDINIR 300 MG CAP (OMNICEF) PO SCH ×2 (09:36→21:28)
[2020-12-31 09:37] VITALS: BP 120/76
[2020-12-31] MEDS: APIXABAN 5 MG TAB (ELIQUIS) PO SCH ×2 (09:37→21:15)
[2020-12-31] MEDS: SPIRONOLACTONE 25 MG TAB PO SCH (09:37)
[2020-12-31] MEDS: BENZONATATE 100 MG CAP PO SCH ×3 (09:37→21:15)
[2020-12-31] MEDS: DOCUSATE SODIUM 100MG CAPSULE PO SCH ×2 (09:37→21:15)
[2020-12-31] MEDS: predniSONE 20 MG TAB PO SCH (09:37)
[2020-12-31] MEDS: POTASSIUM CHLORIDE 10 MEQ SR TABLET PO SCH (09:37)
[2020-12-31] MEDS: PANTOPRAZOLE 40MG TAB (PROTONIX) PO SCH (09:37)
[2020-12-31] MEDS: HumaLOG INSULIN (NovoLOG) PER UNIT SC SCH ×3 (09:45→16:52)
[2020-12-31] MEDS ORDERED: CEFD300CAP PO (11:53)
[2020-12-31] MEDS ORDERED: PRED20TA PO (11:53)
[2020-12-31 14:00] VITALS: BP 125/61
--- NOTE | 2020-12-31 14:52 | ECHO ---
DATE OF PROCEDURE: 12/30/2020 Age: 85 Gender: Female REFERRING PROVIDER: Chrissy Berman MD. PATIENT LOCATION: Room 4229. REASON FOR STUDY: Shortness of breath, pulmonary hypertension. 2D MEASUREMENTS: IVS 0.9 cm LVPW 0.9 cm LV 3.6 cm LA 2.9 cm Aorta 3.6 cm IVC 1.2 cm DOPPLER MEASUREMENT Peak velocity across the aortic valve 1.7 m/s Peak velocity across the LVOT 0.8 m/s Peak gradient across the aortic valve 11 mmHg Mean gradient across the aortic valve 6 mmHg Mitral E 1.1 Mitral A 1.0 with a ratio of 1.6 2D COMMENTS: 1. Normal left ventricular size, wall thickness, and normal global left ventricular systolic function. The estimated left ventricular systolic ejection fraction is 60 to 65%. 2. Subjectively, the left atrium appeared to be enlarged. 3. The right atrium appeared to be borderline enlarged as well as the right ventricle. The right ventricular free wall seems to be contrasting. 4. The atrial septum appeared to be normal without evidence of defect or shunt. 5. Normal aortic root. 6. No pericardial effusion seen. 7. Mildly calcified aortic valve with normal leaflet excursion. Mildly calcified mitral annulus with normal anterior mitral valve leaflet motion. Normal tricuspid valve. The pulmonic valve and proximal pulmonary artery branches were not well visualized. 8. The inferior vena cava was normal in size, central venous pressure might be normal. DOPPLER: No significant valvular abnormalities detected. Assessment of the left ventricular diastolic function appeared to be normal. IMPRESSION: 1. Normal global left ventricular systolic and diastolic function. 2. Aortic valve sclerosis with trivial aortic stenosis. No aortic regurgitation. 3. Mitral annulus calcification. Subjectively, the left atrium appeared to be mildly enlarged. MTDD
--- NOTE | 2020-12-31 16:00 | DS.PDOC ---
Discharge Summary General Date of Admission Dec 27, 2020 at 20:31 Date of Discharge 12/31/20 Attending Physician: SEAN TRUJILLO MD Discharge Summary PROCEDURES PERFORMED DURING STAY: [None]. ADMITTING DIAGNOSES: 1. Altered Mental Status 2/2 hypercarbia 2. Hypercarbic, hypoxemic respiratory failure 2/2 COPD exacerbation 3. Paroxysmal Atrial Fibrillation 4. Cor Pulmonale 5. HLD 6. DMII 7. CKDIII DISCHARGE DIAGNOSES: 1. Altered Mental Status 2/2 hypercarbia 2. Hypercarbic, hypoxemic respiratory failure 2/2 COPD exacerbation 3. Paroxysmal Atrial Fibrillation 4. Cor Pulmonale 5. HLD 6. DMII 7. Acute kidney injury in setting of chronic kidney disease stage III COMPLICATIONS/CHIEF COMPLAINT: Acute On Chronic Respiratory Failure W Hypercapnia. HISTORY OF PRESENT ILLNESS: Patient is an 85-year-old female with a past medical history significant for chronic hypoxemic hypercarbic respiratory failure on Trilogy at night, Chronic obstructive pulmonary disease on 2 L nasal cannula baseline, paroxysmal atrial fibrillation, pulmonary hypertension, diabetes mellitus type 2 and diastolic congestive heart failure presented to [facility] emergency department with a complaint of worsening fatigue and shortness of breath. The patient's daughter who is her primary caregiver had stated that the patient had developed some shortness of breath, a cough and was appearing more fatigued than her normal. Patient's daughter had stated that she normally takes 10 mg of prednisone daily and she had increased it to 20 mg daily. The patient's daughter then stated that the next date the patient did not improve, so she brought her to the emergency department. In the emergency department the patient was vitally stable. She was only requiring 2 L nasal cannula which is her baseline. She was given 40 mg of Lasix and 125 mg IV Solu-Medrol. Patient was admitted to hospitalist service for further evaluation management HOSPITAL COURSE: Arterial blood gas on admission demonstrated pH of 7.28, PCO2 of 88.1. Patient was placed on bilevel with her home Trilogy settings. Repeat blood gas demonstrated pH is 7.35, PCO2 of 75. Patient's baseline PCO2 is 60-70. Her pH was normalizing. Therefore, the patient was continued on her normal settings. On admission she was started on IV Lasix. However, the patient did not appear to be in CHF exacerbation and this was discontinued. It was felt the patient was likely in a COPD exacerbation leading to worsening hypercarbia and resulting in altered mental status. With treatment of her COPD exacerbation. Her hypercarbia improved as well as her mentation. Patient was then transferred to [facility]. The following day the patient was found to have an acute kidney injury. It is possible this was due to the Lasix. Additionally, the patient received a CTA through the ER and was felt likely that the patient may have developed contrast- induced nephropathy. Patient's Demadex was held and the creatinine was monitor which did improve. Overnight, the patient was noted to translate become more fatigued. Likely cause this wasn't the patient was not wearing her Trilogy machine when she was taking naps and sleeping. Nursing staff was instructed to ensure the patient wears her Trilogy machine when she is asleep or taking naps. Patient was screened for acute rehabilitation and was accepted. Patient was discharged to acute rehabilitation with instructions to continue her Ceftin ear and prednisone for 3 more days to complete a 5 day course. DISCHARGE MEDICATIONS: Please see below. ALLERGIES: Please see below. PHYSICAL EXAMINATION ON DISCHARGE: VITAL SIGNS: Please see below. GENERAL: Awake, alert, and oriented. Appears in no acute distress. Lying comfortably in bed. HEENT: Atraumatic, normocephalic. Eyes are nonicteric. Trachea is midline. Bilevel mask in place CARDIOVASCULAR: Normal S1, S2. Regular rate and rhythm. No clicks, rubs, or murmurs RESPIRATORY: Clear breath sounds bilaterally. No wheezes rhonchi or rales. Decreased breath sounds throughout ABDOMINAL: Obese. Soft, nondistended. Nontender. Normoactive bowel sounds EXTREMITIES: No edema. Full and equal pulses in bilateral upper and lower extremities NEUROLOGICAL: No focal neurological deficits PSYCHOLOGICAL: Mood and affect appear appropriate LABORATORY DATA: Please see below. IMAGING: INDICATION: DYSPNEA/COUGH COMPARISON: 07/07/2020 TECHNIQUE: Portable AP view of the chest FINDINGS: Evaluation is limited by technique, underpenetration and poor inspiratory effort. The mediastinum and cardiac silhouette are stable and within normal limits for portable technique. The lung worrell demonstrate chronic appearing changes although ba silar atelectasis and possible small right pleural effusion cannot be excluded. IMPRESSION: Limited examination cannot exclude bibasilar atelectasis and possible small right pleural effusion. <Electronically signed by Ray Corrigan > 12/27/20 1402 PROCEDURE INFORMATION: Exam: CT Angiography Chest With Contrast Exam date and time: 12/27/2020 9:23 PM Age: 85 years old Clinical indication: Other: Worsening hypercapnea in PT w copd R/O pe and pna TECHNIQUE: Imaging protocol: Computed tomographic angiography of the chest with contrast. 3D rendering (Not supervised by radiologist): MIP and/or 3D reconstructed images were created by the technologist. Radiation optimization: All CT scans at this facility use at least one of these dose optimization techniques: automated exposure control; mA and/or kV adjustment per patient size (includes targeted exams where dose is matched to clinical indication); or iterative reconstruction. Contrast material: ISOVUE 370; Contrast volume: 75 ml; Contrast route: INTRAVENOUS (IV); COMPARISON: CT Chest without contrast 05/26/2019 6:06 PM FINDINGS: Pulmonary arteries: The main pulmonary artery measures 42 mm. No pulmonary embolism is identified. Aorta: The ascending thoracic aorta measures 34 mm. Lungs: Slight interstitial coarsening with mild bibasilar fibro-atelectatic change and minimal scattered infiltrates, greatest in the posterolateral right upper lobe. Pleural spaces: Unremarkable. No pneumothorax. No pleural effusion. Heart: Unremarkable. No cardiomegaly. No pericardial effusion. Lymph nodes: Unremarkable. No enlarged lymph nodes. Diaphragm: General hypoinflation with elevation of the right hemidiaphragm. Liver: Probable right hepatic cyst measuring 17 mm with a Hounsfield measurement of 14. Kidneys and ureters: There is a right renal cyst measuring 12 mm with a Hounsfield measurement of -14 consistent with a simple cyst. Bones/joints: Thoracic kyphosis with prominent wedge compression of T6 and to a lesser degree T5 with mild superior endplate depression of T3 and L2. Soft tissues: Unremarkable. IMPRESSION: 1. General hypoinflation with elevation of the right hemidiaphragm which is similar to 05/26/2019. There is thoracic kyphosis and prominent compression of T6 and to a lesser degree T5 which are similar to the prior study. 2. Slight interstitial coarsening with mild bibasilar fibro-atelectatic change with minimal scattered infiltrates, greatest in the posterolateral right upper lobe which is improved since the prior study. There is also resolution of bilateral pleural effusions with decreased adjacent atelectasis. 3. Enlarged main pulmonary artery measuring 42 mm which may be seen with pulmonary hypertension but is similar to the prior study. 4. Otherwise negative CTA chest. No pulmonary embolism is identified. COMMENTS: Consistent with the [place] [employer]'s Incidental Findings Committee white paper (J Am Jen Radiol 2018): Any incidental renal lesion less than 1 cm or classified as too small to characterize, or any incidental cystic renal lesion characterized as simple-appearing, is likely benign. No follow-up imaging is recommended for these lesions per consensus recommendations based on imaging criteria. Electronically signed by: Diogenes Hermosillo On 12/27/2020 22:12:26 PM DD: DIOGENES HERMOSILLO MD 12/27/202122 DT: CATALINO 12/27/202211 DS: YAEL 12/27/202211 [~ rep ct labl] INDICATION: ZAKIYA. COMPARISON: None. TECHNIQUE: Multiple sonographic images of the kidneys. FINDINGS: The right kidney measures 9.4 x 5.0 x 5.2 cm. The left kidney measures 9.4 x 4.2 x 5.0 cm. The kidneys are in the low normal size range. Renal cortical echogenicity is normal bilaterally. There is no hydronephrosis or hydroureter on the right or the left. There are no renal calculi. There are no solid renal masses. There is a right renal 1.6 cm cortical cyst laterally at the lower pole, have the appearance of a Bosniak type 1 cyst. Incidentally, a 2.5 cm gallbladder calculus is identified. Bladder: There is a Timmons catheter, the bladder is collapsed and cannot be further evaluated. IMPRESSION: 1.6 cm right renal cyst, having the ultrasound appearance of the Bosniak type 1 cyst. The kidneys are in the low normal size range. A 2.5 cm gallbladder calculus is incidentally identified. <Electronically signed by Cayetano Hall > 12/29/20 4681 PROGNOSIS: fair ACTIVITY: [As tolerated]. DIET: Consistent Carb, 2G sodium DISCHARGE PLAN: Patient is to be discharged to acute rehabilitation unit for ongoing rehabilitation. She is to continue using her Trilogy machine for naps and at bedtime. She is continue her oral Cefdinir for 3 more days. . She is continue 40 mg prednisone for 3 more days to complete 5 days of treatment. She is then to resume her home prednisone dosing of 10 mg daily. She is to follow-up with her primary care physician after discharge from the acute rehabilitation unit. She is to follow-up with her hand button splitter, 1-2 weeks after discharge.. DISCHARGE INSTRUCTIONS: 1. Continue Cefdinir for 3 more days to complete 5 days of treatment 2. Continue 40 mg of prednisone for 3 more days to complete 5 days of treatment, then resume 10 mg prednisone daily 3. Continue Trilogy machine for naps and qhs DISCHARGE CONDITION: [Stable]. TIME SPENT ON DISCHARGE: Greater than 40 minutes. Vital Signs/I&Os Vital Signs Date Time Temp Pulse Resp B/P (MAP) Pulse Ox O2 Delivery O2 Flow Rate FiO2 12/31/20 14:00 97.6 81 16 125/61 (82) 92 Nasal Cannula 2.0 12/28/20 12:00 28 I&O- Last 24 Hours up to 6 AM 12/31/20 06:00 Intake Total 540 ml Output Total 0 ml Balance 540 ml Laboratory Data Labs 24H Laboratory Tests 2 12/30/20 16:44: Bedside Glucose (Misc Panel) 188H 12/30/20 21:04: Bedside Glucose (Misc Panel) 224H 12/31/20 06:56: Immature Granulocyte % (Auto) 0.5, Neutrophils (%) (Auto) 77.4H, Lymphocytes (%) (Auto) 13.4L, Monocytes (%) (Auto) 8.2H, Eosinophils (%) (Auto) 0.4, Basophils (%) (Auto) 0.1, Neutrophils # (Auto) 8.8H, Lymphocytes # (Auto) 1.5, Monocytes # (Auto) 0.9H, Eosinophils # (Auto) 0.0, Basophils # (Auto) 0.0, Nucleated Red Blood Cells % (auto) 0.0, Anion Gap , Glomerular Filtration Rate 50.5, Calcium Level 8.7L 12/31/20 12:23: Bedside Glucose (Misc Panel) 144H CBC/BMP Laboratory Tests 12/31/20 06:56 FSBS Laboratory Tests Test 12/30/20 16:44 12/30/20 21:04 12/31/20 12:23 Range/Units Bedside Glucose (Misc Panel) 188 224 144 83-110 MG/DL Microbiology Microbiology 12/28/20 Urine Culture - Final, Complete Proteus Mirabilis 12/27/20 Blood Culture - Preliminary, Resulted No Growth after 72 hours. All specime... 12/27/20 Blood Culture - Preliminary, Resulted No Growth after 72 hours. All specime... 12/27/20 Blood Culture - Preliminary, Resulted No Growth after 72 hours. All specime... 12/27/20 Blood Culture - Preliminary, Resulted No Growth after 72 hours. All specime... Discharge Medications Scheduled Apixaban (Eliquis) 5 Mg Tablet, 5 MG PO BID, (Reported) Atorvastatin Calcium (Atorvastatin Calcium) 40 Mg Tab, 40 MG PO QHS, (Reported) Budesonide (Budesonide) 0.5 Mg/2 Ml Ampul.neb, 0.5 MG PO BID, (Reported) Calcium Carbonate/Vitamin D3 (Calcium 500-Vit D3 200 Tablet) 1 Each Tablet, 1 TAB PO DAILY, (Reported) Cefdinir (Cefdinir) 300 Mg Capsule, 300 MG PO BID Diltiazem HCl (Cartia Xt) 120 Mg Cap, 120 MG PO DAILY, (Reported) Docusate Sodium (Docusate Sodium) 100 Mg Capsule, 100 MG PO BID, (Reported) Formoterol Fumarate (Perforomist) 20 Mcg/2 Ml Vial.neb, 1 VIAL NEB BID, (Reported) BEFORE BUDESONIDE BID Guaifenesin (Mucinex) 600 Mg Tab.er.12h, 600 MG PO BID, (Reported) Oxybutynin Chloride (Oxybutynin Chloride) 5 Mg Tablet, 5 MG PO BID, (Reported) Pantoprazole Sodium (Pantoprazole Sodium) 40 Mg Tablet.dr, 40 MG PO QAM, (Reported) Potassium Chloride (Potassium Chloride) 20 Meq Tablet.er, 20 MEQ PO DAILY, ( Reported) Prednisone (Prednisone) 10 Mg Tablet, 10 MG PO DAILY, (Reported) Prednisone (Prednisone) 20 Mg Tablet, 40 MG PO DAILY Take TWO 20mg tablets daily for THREE more days. Then resume previous 10mg daily dose Spironolactone (Spironolactone) 25 Mg Tab, 25 MG PO DAILY, (Reported) Torsemide (Torsemide) 100 Mg Tablet, 100 MG PO DAILY, (Reported) Umeclidinium [place] (Incruse Ellipta) 62.5 Mcg Blst.w.dev, 1 PUFF INH DAILY, (Reported) Vitamin B Complex/Folic Acid (B-Complex Tablet) 0.4 Mg Tablet, 1 TAB PO DAILY, (Reported) Scheduled PRN Acetaminophen (Acetaminophen) 500 Mg Tablet, 500 MG PO Q4H PRN for PAIN, (Reported) Albuterol Sulfate (Ventolin Hfa) 18 Gm Hfa.aer.ad, 2 PUFF INH Q4-6HP PRN for wheezing, (Reported) Ipratropium/Albuterol Sulfate (Iprat-Albut 0.5-3(2.5) mg/3 ml) 3 Ml Ampul.neb, 1 VIAL INH Q4H PRN for SHORTNESS OF BREATH, (Reported) Polyvinyl Alcohol (Artificial Tears) 1.4 % Kinjal, 1 DROP OU QID PRN for DRY EYES, (Reported) Allergies Coded Allergies: No Known Allergies (Unverified , 12/25/18) GME ATTESTATION GME ATTESTATION My faculty preceptor for this patient encounter was physically present during the encounter and was fully available. All aspects of the patient interview, examination, medical decision making process, and medical care plan development were reviewed and approved by the faculty preceptor. The faculty preceptor is aware and concurs with the plan as stated in the body of this note and will attest to such by his/her cosignature. ATTENDING NOTE Attending Attestation: Patient independently seen and examined. I have discussed in detail with the resident / student the findings and plan of treatment as documented by the resident / student. I agree with their findings and treatment plan and have edited their documentation. I will continue to follow the patient during this hospital stay. TANYA MAHAJAN DO Dec 31, 2020 16:00 SEAN TRUJILLO MD Jan 02, 2021 11:49
[2020-12-31] MEDS: ATORVASTATIN 20 MG TAB PO SCH (21:15)
[2020-12-31 22:00] VITALS: BP 136/80
== END 2020-12-31 22:12 | DRG 189 ==
LOC: M ED 13:03 → M ICU 20:31 → EEVIPCON 20:31 → ENRESERV 21:04 → M MSPAV 12-29 16:14
PROVIDERS: ADMIT Internal Medicine; ATTEND Internal Medicine
DX: J96.22 Acute and chronic respiratory failure with hypercapnia (principal); G93.41 Metabolic encephalopathy; J44.1 Chronic obstructive pulmonary disease with (acute) exacerbation; I50.32 Chronic diastolic (congestive) heart failure; I13.0 Hypertensive heart and chronic kidney disease with heart failure and stage 1 through stage 4 chronic kidney disease, or unspecified chronic kidney disease; N39.0 Urinary tract infection, site not specified; N17.9 Acute kidney failure, unspecified; N18.30 Chronic kidney disease, stage 3 unspecified; I35.8 Other nonrheumatic aortic valve disorders; I27.29 Other secondary pulmonary hypertension; E11.22 Type 2 diabetes mellitus with diabetic chronic kidney disease; E66.9 Obesity, unspecified; D72.829 Elevated white blood cell count, unspecified; I48.0 Paroxysmal atrial fibrillation; E78.5 Hyperlipidemia, unspecified; Z79.01 Long term (current) use of anticoagulants; Z79.899 Other long term (current) drug therapy; Z20.822 Contact with and (suspected) exposure to COVID-19; Z99.81 Dependence on supplemental oxygen; Z68.29 Body mass index [BMI] 29.0-29.9, adult; Z87.891 Personal history of nicotine dependence

== ENCOUNTER 2020-12-31 11:55 | Inpatient (IN) | payer MEDICARE, MEDICAID ==
[~2020-12-31] VITALS: Ht 157.5 cm; Wt 77.6 kg
[~2020-12-31 11:55] MED LIST changes: -CALC500T44 PO; +CEFD300CAP PO; -DEXT4TAB2 PO; +OYST500T92 PO; +POTA1TAB14 PO; +SFHGLU4TA PO
[2020-12-31] MEDS ORDERED: BISACODYL 10 MG SUPP PR PRN (17:35)
[2020-12-31] MEDS ORDERED: GLUCAGON INJ 1MG VIAL SC PRN (17:35)
[2020-12-31] MEDS ORDERED: DEXTROSE 50% 50 ML SYRINGE IV PRN (17:35)
[2020-12-31] MEDS ORDERED: GLUCOSE 4GM CHEW TABLET PO PRN (17:35)
[2020-12-31] MEDS: HumaLOG INSULIN (NovoLOG) PER UNIT SC SCH (21:00)
[2020-12-31 22:25] VITALS: BP 160/71
[2020-12-31] MEDS: oxyBUTYnin 5 MG TAB PO SCH (23:35)
[2020-12-31] MEDS: LACTOBACILLUS ACIDOPHILUS CAP (BACID) PO SCH (23:35)
[2020-12-31] MEDS: POLYVINYL ALCOHOL OPHTH SOLN 15 ML(LIQUITEARS) OU SCH (23:35)
[2020-12-31] MEDS: SENNA 8.6 MG TAB (SENOKOT) PO SCH (23:35)
[2020-12-31] MEDS: guaiFENesin 200 MG TAB PO SCH (23:35)
[2020-12-31] MEDS: SUCRALFATE 1 GM TAB PO SCH (23:36)
[2020-12-31] MEDS: REMEDY PHYTOPLEX Z-GUARD PASTE 113GM TUBE (FROM STOREROOM PRODUCT) TOP SCH (23:36)
[2021-01-01 06:16] VITALS: BP 148/69
[2021-01-01] MEDS: IPRATROPIUM 0.5MG/ALBUTEROL 2.5MG INH SOL UD 3ML (DUONEB) NEB SCH ×3 (07:38→19:31)
[2021-01-01] MEDS: SUCRALFATE 1 GM TAB PO SCH ×4 (08:21→20:28)
[2021-01-01] MEDS: APIXABAN 5 MG TAB (ELIQUIS) PO SCH ×2 (08:22→20:28)
[2021-01-01] MEDS: CEFDINIR 300 MG CAP (OMNICEF) PO SCH ×2 (08:22→20:27)
[2021-01-01] MEDS: TORSEMIDE 20 MG TAB PO SCH (08:23)
[2021-01-01] MEDS: SPIRONOLACTONE 25 MG TAB PO SCH (08:23)
[2021-01-01] MEDS: predniSONE 20 MG TAB PO SCH (08:24)
[2021-01-01] MEDS: BENZONATATE 100 MG CAP PO SCH ×3 (08:24→20:28)
[2021-01-01] MEDS: oxyBUTYnin 5 MG TAB PO SCH ×2 (08:25→21:00)
[2021-01-01] MEDS: PANTOPRAZOLE 40MG TAB (PROTONIX) PO SCH (08:25)
[2021-01-01] MEDS: POTASSIUM CHLORIDE 10 MEQ SR TABLET PO SCH (08:25)
[2021-01-01] MEDS: LACTOBACILLUS ACIDOPHILUS CAP (BACID) PO SCH ×4 (08:25→20:28)
[2021-01-01] MEDS: guaiFENesin 200 MG TAB PO SCH ×3 (08:25→20:28)
[2021-01-01] MEDS: CALCIUM/VITAMIN D 500 MG TAB PO SCH (08:25)
[2021-01-01 08:26] LABS: BASO % 0.1 % (0.0-1.0); EOS # 0.1 10^3/uL (0.0-0.5); HEMATOCRIT 38.8 % (36.0-47.0); HEMOGLOBIN 11.3 g/dl (12.0-15.5); LYMPH # 1.8 10^3/uL (1.5-5.0); LYMPH % 15.5 % (24.0-44.0); MEAN CORPUSCULAR HEMOGLOBIN 29.1 pg (27.0-33.0); MEAN CORPUSCULAR HGB CONC 29.1 g/dl (32.0-36.5); MONO # 0.6 10^3/uL (0.0-0.8); MONO % 5.1 % (2.0-8.0); NEUTROPHILS # 8.9 10^3/uL (1.5-8.5); NEUTROPHILS % 77.8 % (36.0-66.0); PLATELET COUNT, AUTOMATED 181 10^3/uL (150-450); RED BLOOD COUNT 3.88 10^6/uL (4.00-5.40); WHITE BLOOD COUNT 11.4 10^3/uL (4.0-10.0)
[2021-01-01] MEDS: DOCUSATE SODIUM 100MG CAPSULE PO SCH ×2 (08:29→20:28)
[2021-01-01] MEDS: REMEDY PHYTOPLEX Z-GUARD PASTE 113GM TUBE (FROM STOREROOM PRODUCT) TOP SCH ×3 (08:33→20:29)
[2021-01-01] MEDS: POLYVINYL ALCOHOL OPHTH SOLN 15 ML(LIQUITEARS) OU SCH ×3 (08:33→20:29)
[2021-01-01 08:47] LABS: ALBUMIN 2.5 GM/DL (3.2-5.2); ALT/SGPT 18 U/L (12-78); BILIRUBIN,TOTAL 0.3 MG/DL (0.2-1.0); BLOOD UREA NITROGEN 22 MG/DL (7-18); CALCIUM LEVEL 8.6 MG/DL (8.8-10.2); CARBON DIOXIDE LEVEL 42 MEQ/L (21-32); CHLORIDE LEVEL 104 MEQ/L (98-107); CREATININE FOR GFR 0.87 MG/DL (0.55-1.30); GLOMERULAR FILTRATION RATE > 60.0 (>32); GLUCOSE, FASTING 129 MG/DL (70-100); POTASSIUM SERUM 4.3 MEQ/L (3.5-5.1); SODIUM LEVEL 144 MEQ/L (136-145); TOTAL PROTEIN 5.4 GM/DL (6.4-8.2)
[2021-01-01] MEDS: HumaLOG INSULIN (NovoLOG) PER UNIT SC SCH ×4 (08:56→20:28)
--- NOTE | 2021-01-01 11:34 | HPEPDOC ---
Waste Elimination Note DATE OF ADMISSION: 12-31-20 DATE OF SERVICE: 01-01-21 TIME OF ADMISSION: Please refer to physician's admission order. SOURCE OF ADMISSION INFORMATION: [facility] record and patient CHIEF COMPLAINT: COPD exacerbation HISTORY OF PRESENT ILLNESS: 85F pmh chronic diastolic CHF, COPD on , Afib, pulmonary HTN, DM, CKD, Cor Pulmonale, chronic venous insufficiency presented to [facility] ED on 12-27-20 with worsening difficulty breathing and cough. CXR revealed, "Limited examination cannot exclude bibasilar atelectasis and possible small right pleural effusion" and CTA chest ruled out pulmonary emboli. She was diagnosed with a COPD exacerbation with hypercarbia respiratory failure and started on Cefdinir and oral prednisone. She was also encephaloapthic which improved with medical treatment for her respiratory illness. She was also diagnosed with a UTI, had mobility and ADL impairments and deemed medically appropriate for discharge to ARU on 12-31-20. REVIEW OF SYSTEMS: The following is a completed review of systems and has been reviewed. Review of systems otherwise unremarkable. PAIN: Patient self reports no pain EYES: No recent vision changes EARS, NOSE, & THROAT: No throat pain, or dysphagia, or rhinorrhea CARDIOVASCULAR: [Denies chest pain or palpitations PULMONARY: +short of breath (chronic), + cough (patient reporting baseline) GASTROINTESTINAL: Denies constipation/diarrhea GENITOURINARY: denies dysuria MUSCULOSKELETAL: generalized weakness NEUROLOGICAL:denies paresthesias HEMATOLOGICAL: +easy bruising SKIN: thin skin PSYCHIATRIC: Unremarkable All other review of systems found to be negative. PAST MEDICAL HISTORY: as per [facility] ALLERGIES: Please see below. MEDICATIONS: Please see below. FAMILY HISTORY: cardiac SOCIAL HISTORY: former smoker, no etoh/illicit drugs DIET: low sodium/consistent carb PHYSICAL EXAMINATION: VITAL SIGNS: Please see below. GENERAL: Pleasant and cooperative. No acute distress. mildly dyspneic, but not in distress HEENT: PERRL. Extraocular movements intact. Clear conjunctiva] CARDIOVASCULAR: Regular rate and rhythm. No murmurs, rubs, or gallops LUNGS: Clear to auscultation bilaterally. No wheezes. No rhonchi ABDOMEN: Soft, nontender, nondistended. Positive bowel sounds. Normal active bowel sounds NEUROLOGICAL: Alert and oriented times three. Cranial nerves II through XII grossly intact. Sensation grossly intact EXTREMITIES: 5-\\5 strength bilateral upper extremities. 5-\\5 strength right lower extremity. 5-/5 strength in left lower extremity. SKIN: sacrum without ulcers, scattered ecchymosis LABORATORY DATA: Please see below. IMAGING: Imaging documentation personally reviewed by record FUNCTIONAL STATUS: Premorbid: Some assistance with ADLs and ambulation On Admission: Mod-assist for functional transfers, ambulation, bed mobility, toileting GOALS: Contact guard-supervision for ambulation household distance, functional transfers, dressing, bathing, toileting ASSESSMENT:85-year-old F with past medical history of COPD and diastolic CHF who presents status post COPD exacerbation with encephalopathy PLAN: 1. Rehab- PT/OT advance mobility and ADLs, teach energy conservation, strengthen/stretch/maintain ROM all 4 limbs 2 Neuro- monitor for recurring encephalopathy 3. Cardiac- hx of diastolic CHF- fluid restrict, daily weights, torsemide (will add back lower dose than home dosing to avoid ZAKIYA and will monitor), Aldactone -Afib on eliquis and CCB -HLD- c/u statin -medicine consulted to assist in overall management 4. Resp- c/u Cefdinir and Oral prednisone for COPD exacerbation, DUonebs, acapella, 02 goal 88-92% -LIZETH on CPAP 5. Renal- CKD, monitor for ZAKIYA, if needed will consult renal for fluid management 6. GI ppx- protonix BID and sucralfate 7. DVT ppx- on eliquis 8. Endo- hx of DM c/u ISS 9. Pain- tylenol prn 10. DIspo- TBD POST ADMISSION PHYSICIAN EVALUATION: Medical and functional status: Description of medical status, medical assessment: As above. Rehabilitation diagnosis and current and prior cold morbid medical conditions as above. Risk of complications and plans to mitigate them as above. Description of functional status current status is as above. Prior status as above. Status compared to preadmission: There are no clinically significant differences between the patient's current status and the information described on the preadmission screening document. Treatment plan anticipated: Treatment plan is as described above. Required disciplines including physical therapy, occupational therapy, others as noted above. Intensity of services: 3 hours a day, 6 days a week. Special considerations: There are no specific special or safety considerations that would likely preclude immediate implementation of an intensive rehabilitation program or subsequently influence the plan of care. ATTESTATION: Considering all the information above, it is my best judgment that this patient requires intensive rehabilitation therapy as described above and an inpatient hospital environment due to the complexity of nursing, medical, and rehabilitation needs required by the patient. Furthermore, this patient can reasonably be expected to participate in an benefit from an inpatient rehabili tation stay with an interdisciplinary team approach to the delivery of rehabilitation care under the direction and supervision of rehabilitation physician. PROGNOSIS: good ESTIMATED LENGTH OF STAY:14-18 days. PROJECTED DISCHARGE DESTINATION: Home with family support and any durable medical equipment required to increase functional safety and mobility TIME SPENT COUNSELING AND COORDINATING INITIAL CARE: Greater than 70 minutes. Vital Signs Vital Sign - Last 24 Hours 12/31/20 01/01/21 01/01/21 22:25 06:16 08:24 Temp 97.0 97.1 Pulse 76 84 84 Resp 18 18 B/P (MAP) 160/71 (100) 148/69 (95) 145/69 Pulse Ox 98 94 O2 Delivery Nasal Cannula NIPPV (BIPAP/CPAP) O2 Flow Rate 2.0 2.0 Laboratory Data CBC/BMP Laboratory Tests 01/01/21 07:38 Labs 24H Laboratory Tests 2 01/01/21 07:38: Immature Granulocyte % (Auto) 0.5, Neutrophils (%) (Auto) 77.8H, Lymphocytes (%) (Auto) 15.5L, Monocytes (%) (Auto) 5.1, Eosinophils (%) (Auto) 1.0, Basophils (%) (Auto) 0.1, Neutrophils # (Auto) 8.9H, Lymphocytes # (Auto) 1.8, Monocytes # (Auto) 0.6, Eosinophils # (Auto) 0.1, Basophils # (Auto) 0.0, Nucleated Red Blood Cells % (auto) 0.0, Anion Gap , Glomerular Filtration Rate > 60.0, Calcium Level 8.6L, Total Bilirubin 0.3, Aspartate Amino Transf (AST/SGOT) 11, Alanine Aminotransferase (ALT/SGPT) 18, Alkaline Phosphatase 63, Total Protein 5.4L, Albumin 2.5L, Albumin/Globulin Ratio 0.9L Home Medications Scheduled Apixaban (Eliquis) 5 Mg Tablet, 5 MG PO BID, (Reported) Atorvastatin Calcium (Atorvastatin Calcium) 40 Mg Tab, 40 MG PO QHS, (Reported) Budesonide (Budesonide) 0.5 Mg/2 Ml Ampul.neb, 0.5 MG PO BID, (Reported) Calcium Carbonate/Vitamin D3 (Calcium 500-Vit D3 200 Tablet) 1 Each Tablet, 1 TAB PO DAILY, (Reported) Cefdinir (Cefdinir) 300 Mg Capsule, 300 MG PO BID Diltiazem HCl (Cartia Xt) 120 Mg Cap, 120 MG PO DAILY, (Reported) Docusate Sodium (Docusate Sodium) 100 Mg Capsule, 100 MG PO BID, (Reported) Formoterol Fumarate (Perforomist) 20 Mcg/2 Ml Vial.neb, 1 VIAL NEB BID, (Reported) BEFORE BUDESONIDE BID Guaifenesin (Mucinex) 600 Mg Tab.er.12h, 600 MG PO BID, (Reported) Oxybutynin Chloride (Oxybutynin Chloride) 5 Mg Tablet, 5 MG PO BID, (Reported) Pantoprazole Sodium (Pantoprazole Sodium) 40 Mg Tablet.dr, 40 MG PO QAM, (Reported) Potassium Chloride (Potassium Chloride) 20 Meq Tablet.er, 20 MEQ PO DAILY, (Reported) Prednisone (Prednisone) 10 Mg Tablet, 10 MG PO DAILY, (Reported) Prednisone (Prednisone) 20 Mg Tablet, 40 MG PO DAILY Take TWO 20mg tablets daily for THREE more days. Then resume previous 10mg daily dose Spironolactone (Spironolactone) 25 Mg Tab, 25 MG PO DAILY, (Reported) Torsemide (Torsemide) 100 Mg Tablet, 100 MG PO DAILY, (Reported) Umeclidinium [place] (Incruse Ellipta) 62.5 Mcg Blst.w.dev, 1 PUFF INH DAILY, (Reported) Vitamin B Complex/Folic Acid (B-Complex Tablet) 0.4 Mg Tablet, 1 TAB PO DAILY, (Reported) Scheduled PRN Acetaminophen (Acetaminophen) 500 Mg Tablet, 500 MG PO Q4H PRN for PAIN, (Reported) Albuterol Sulfate (Ventolin Hfa) 18 Gm Hfa.aer.ad, 2 PUFF INH Q4-6HP PRN for wheezing, (Reported) Ipratropium/Albuterol Sulfate (Iprat-Albut 0.5-3(2.5) mg/3 ml) 3 Ml Ampul.neb, 1 VIAL INH Q4H PRN for SHORTNESS OF BREATH, (Reported) Polyvinyl Alcohol (Artificial Tears) 1.4 % Kinjal, 1 DROP OU QID PRN for DRY EYES, (Reported) Allergies Coded Allergies: No Known Allergies (Unverified , 12/25/18) A-FIB/CHADSVASC A-FIB History Current/History of A-Fib/PAF?: Yes Current PO Anticoag Therapy: Yes DOMINIK STEWARD MD Jan 01, 2021 11:34
[2021-01-01 14:00] VITALS: BP 133/90
[2021-01-01 20:00] VITALS: BP 134/63
[2021-01-01] MEDS: ATORVASTATIN 20 MG TAB PO SCH (20:28)
[2021-01-01] MEDS: SENNA 8.6 MG TAB (SENOKOT) PO SCH (20:28)
[2021-01-02 06:58] VITALS: BP 158/78
[2021-01-02] MEDS: HumaLOG INSULIN (NovoLOG) PER UNIT SC SCH ×4 (07:01→21:00)
[2021-01-02] MEDS: IPRATROPIUM 0.5MG/ALBUTEROL 2.5MG INH SOL UD 3ML (DUONEB) NEB SCH ×3 (07:18→19:28)
[2021-01-02] MEDS: LACTOBACILLUS ACIDOPHILUS CAP (BACID) PO SCH ×4 (08:00→21:10)
[2021-01-02] MEDS: SPIRONOLACTONE 25 MG TAB PO SCH (08:00)
[2021-01-02] MEDS: oxyBUTYnin 5 MG TAB PO SCH ×2 (08:00→21:10)
[2021-01-02] MEDS: CEFDINIR 300 MG CAP (OMNICEF) PO SCH ×2 (08:00→21:10)
[2021-01-02] MEDS: predniSONE 20 MG TAB PO SCH (08:00)
[2021-01-02] MEDS: SUCRALFATE 1 GM TAB PO SCH ×4 (08:00→21:10)
[2021-01-02] MEDS: BENZONATATE 100 MG CAP PO SCH ×3 (08:00→21:10)
[2021-01-02] MEDS: DOCUSATE SODIUM 100MG CAPSULE PO SCH ×2 (08:01→21:10)
[2021-01-02] MEDS: PANTOPRAZOLE 40MG TAB (PROTONIX) PO SCH (08:01)
[2021-01-02] MEDS: TORSEMIDE 20 MG TAB PO SCH (08:01)
[2021-01-02] MEDS: guaiFENesin 200 MG TAB PO SCH ×3 (08:01→21:10)
[2021-01-02] MEDS: APIXABAN 5 MG TAB (ELIQUIS) PO SCH ×2 (08:01→21:10)
[2021-01-02] MEDS: CALCIUM/VITAMIN D 500 MG TAB PO SCH (08:01)
[2021-01-02] MEDS: POTASSIUM CHLORIDE 10 MEQ SR TABLET PO SCH (08:01)
[2021-01-02] MEDS: REMEDY PHYTOPLEX Z-GUARD PASTE 113GM TUBE (FROM STOREROOM PRODUCT) TOP SCH ×3 (08:02→21:13)
[2021-01-02] MEDS: POLYVINYL ALCOHOL OPHTH SOLN 15 ML(LIQUITEARS) OU SCH ×3 (08:02→21:12)
[2021-01-02 14:00] VITALS: BP 134/64
[2021-01-02 20:00] VITALS: BP 126/58
[2021-01-02] MEDS: SENNA 8.6 MG TAB (SENOKOT) PO SCH (21:10)
[2021-01-02] MEDS: ATORVASTATIN 20 MG TAB PO SCH (21:10)
[2021-01-03 05:57] VITALS: BP 169/74
[2021-01-03] MEDS: IPRATROPIUM 0.5MG/ALBUTEROL 2.5MG INH SOL UD 3ML (DUONEB) NEB SCH ×3 (07:09→19:30)
[2021-01-03] MEDS: HumaLOG INSULIN (NovoLOG) PER UNIT SC SCH ×4 (07:30→21:00)
[2021-01-03] MEDS: oxyBUTYnin 5 MG TAB PO SCH ×2 (08:31→21:46)
[2021-01-03] MEDS: CEFDINIR 300 MG CAP (OMNICEF) PO SCH ×2 (08:32→21:46)
[2021-01-03] MEDS: APIXABAN 5 MG TAB (ELIQUIS) PO SCH ×2 (08:32→21:46)
[2021-01-03] MEDS: BENZONATATE 100 MG CAP PO SCH ×3 (08:32→21:46)
[2021-01-03] MEDS: CALCIUM/VITAMIN D 500 MG TAB PO SCH (08:33)
[2021-01-03] MEDS: LACTOBACILLUS ACIDOPHILUS CAP (BACID) PO SCH ×4 (08:33→21:46)
[2021-01-03] MEDS: DOCUSATE SODIUM 100MG CAPSULE PO SCH ×2 (08:33→21:00)
[2021-01-03] MEDS: PANTOPRAZOLE 40MG TAB (PROTONIX) PO SCH (08:33)
[2021-01-03] MEDS: SUCRALFATE 1 GM TAB PO SCH ×4 (08:33→21:46)
[2021-01-03] MEDS: TORSEMIDE 20 MG TAB PO SCH (08:33)
[2021-01-03] MEDS: POTASSIUM CHLORIDE 10 MEQ SR TABLET PO SCH (08:34)
[2021-01-03] MEDS: guaiFENesin 200 MG TAB PO SCH ×3 (08:34→21:46)
[2021-01-03] MEDS: SPIRONOLACTONE 25 MG TAB PO SCH (08:35)
[2021-01-03] MEDS: predniSONE 20 MG TAB PO SCH (08:35)
[2021-01-03] MEDS: POLYVINYL ALCOHOL OPHTH SOLN 15 ML(LIQUITEARS) OU SCH ×3 (08:38→21:48)
[2021-01-03] MEDS: REMEDY PHYTOPLEX Z-GUARD PASTE 113GM TUBE (FROM STOREROOM PRODUCT) TOP SCH ×3 (08:39→21:47)
[2021-01-03 10:44] LABS: BASO % 0.1 % (0.0-1.0); EOS # 0.1 10^3/uL (0.0-0.5); EOS % 0.6 % (0.0-3.0); HEMATOCRIT 40.1 % (36.0-47.0); HEMOGLOBIN 11.9 g/dl (12.0-15.5); LYMPH # 1.9 10^3/uL (1.5-5.0); LYMPH % 11.8 % (24.0-44.0); MEAN CORPUSCULAR HGB CONC 29.7 g/dl (32.0-36.5); MEAN CORPUSCULAR VOLUME 97.6 fl (80.0-96.0); MONO # 0.8 10^3/uL (0.0-0.8); MONO % 4.7 % (2.0-8.0); NEUTROPHILS # 13.2 10^3/uL (1.5-8.5); NEUTROPHILS % 82.2 % (36.0-66.0); PLATELET COUNT, AUTOMATED 200 10^3/uL (150-450); RED BLOOD COUNT 4.11 10^6/uL (4.00-5.40); WHITE BLOOD COUNT 16.1 10^3/uL (4.0-10.0)
[2021-01-03 11:16] LABS: BLOOD UREA NITROGEN 21 MG/DL (7-18); CALCIUM LEVEL 9.2 MG/DL (8.8-10.2); CARBON DIOXIDE LEVEL 43 MEQ/L (21-32); CHLORIDE LEVEL 98 MEQ/L (98-107); CREATININE FOR GFR 0.99 MG/DL (0.55-1.30); GLUCOSE, FASTING 84 MG/DL (70-100); POTASSIUM SERUM 4.3 MEQ/L (3.5-5.1); SODIUM LEVEL 139 MEQ/L (136-145)
[2021-01-03] MEDS: ACETAMINOPHEN TAB 650MG DOSE (2X325MG) PO PRN (12:33)
[2021-01-03 14:00] VITALS: BP 127/61
[2021-01-03 20:00] VITALS: BP 150/80
[2021-01-03] MEDS: SENNA 8.6 MG TAB (SENOKOT) PO SCH (21:00)
[2021-01-03] MEDS: ATORVASTATIN 20 MG TAB PO SCH (21:46)
[2021-01-04 05:37] VITALS: BP 151/60
[2021-01-04] MEDS: HumaLOG INSULIN (NovoLOG) PER UNIT SC SCH ×4 (07:20→20:47)
[2021-01-04] MEDS: IPRATROPIUM 0.5MG/ALBUTEROL 2.5MG INH SOL UD 3ML (DUONEB) NEB SCH ×3 (08:02→20:41)
--- NOTE | 2021-01-04 08:36 | IPNPDOC ---
PM&R Progress Note DATE OF SERVICE: Jan 04, 2021 Clinical Aide Progress Note Subjective: Patient seen in her room stating her cough is better today and she is feeling better since starting therapy. REVIEW OF SYSTEMS: The following is a completed review of systems and has been reviewed. Review of systems otherwise unremarkable. PAIN: Patient self reports no pain EYES: No recent vision changes EARS, NOSE, & THROAT: No throat pain, or dysphagia, or rhinorrhea CARDIOVASCULAR: [Denies chest pain or palpitations PULMONARY: +short of breath (chronic), + cough (patient reporting baseline, improving) GASTROINTESTINAL: Denies constipation/diarrhea GENITOURINARY: denies dysuria MUSCULOSKELETAL: generalized weakness NEUROLOGICAL:denies paresthesias HEMATOLOGICAL: +easy bruising SKIN: thin skin PSYCHIATRIC: Unremarkable All other review of systems found to be negative. PHYSICAL EXAMINATION: VITAL SIGNS: Please see below. GENERAL: Pleasant and cooperative. No acute distress. mildly dyspneic, but not in distress HEENT: PERRL. Extraocular movements intact. Clear conjunctiva CARDIOVASCULAR: Regular rate and rhythm. No murmurs, rubs, or gallops LUNGS: Clear to auscultation bilaterally. No wheezes. No rhonchi ABDOMEN: Soft, nontender, nondistended. Positive bowel sounds. Normal active bowel sounds NEUROLOGICAL: Alert and oriented times three. Cranial nerves II through XII grossly intact. Sensation grossly intact EXTREMITIES: 5-\5 strength bilateral upper extremities. 5-\5 strength right lower extremity. 5-/5 strength in left lower extremity. +bilat LE edema (improving) SKIN: sacrum without ulcers, scattered ecchymosis ASSESSMENT:85-year-old F with past medical history of COPD and diastolic CHF who presents status post COPD exacerbation with encephalopathy PLAN: 1. Rehab- PT/OT advance mobility and ADLs, teach energy conservation, strengthen/stretch/maintain ROM all 4 limbs 2 Neuro- monitor for recurring encephalopathy 3. Cardiac- hx of diastolic CHF- fluid restrict, daily weights, torsemide (will add back lower dose than home dosing to avoid ZAKIYA and will monitor), Aldactone -Afib on eliquis and CCB -HLD- c/u statin -medicine consulted to assist in overall management 4. Resp- c/u Cefdinir and Oral prednisone for COPD exacerbation, melinda Casey, 02 goal 88-92% -LIZETH on CPAP 5. Renal- CKD, monitor for ZAKIYA, if needed will consult renal for fluid management 6. GI ppx- protonix BID and sucralfate 7. DVT ppx- on eliquis 8. Endo- hx of DM c/u ISS 9. Pain- tylenol prn 10. DIspo- TBD Allergies Coded Allergies: No Known Allergies (Unverified , 12/25/18) Vital Signs Vital Signs Date Time Temp Pulse Resp B/P (MAP) Pulse Ox O2 Delivery O2 Flow Rate FiO2 01/04/21 05:37 97.2 78 19 151/60 (90) 98 NIPPV (BIPAP/CPAP) 2.0 Laboratory Data CBC/BMP Laboratory Tests 01/03/21 10:22 Labs 24H Laboratory Tests 2 01/03/21 10:22: Immature Granulocyte % (Auto) 0.6, Neutrophils (%) (Auto) 82.2H, Lymphocytes (%) (Auto) 11.8L, Monocytes (%) (Auto) 4.7, Eosinophils (%) (Auto) 0.6, Basophils (%) (Auto) 0.1, Neutrophils # (Auto) 13.2H, Lymphocytes # (Auto) 1.9, Monocytes # (Auto) 0.8, Eosinophils # (Auto) 0.1, Basophils # (Auto) 0.0, Nucleated Red Blood Cells % (auto) 0.0, Anion Gap , Glomerular Filtration Rate 57.0, Calcium Level 9.2 01/03/21 12:11: Bedside Glucose (Misc Panel) 127H 01/03/21 16:58: Bedside Glucose (Misc Panel) 233H 01/03/21 20:08: Bedside Glucose (Misc Panel) 217H 01/04/21 05:11: Bedside Glucose (Misc Panel) 85 Current Medications Current Medications Current Medications Medications (Trade) Dose Ordered Sig/Yanet Route PRN Reason Start Time Stop Time Status Last Admin Dose Admin Acetaminophen (Tylenol Tab) 650 mg Q4HP PRN PO fever/MILD PAIN (PS 1-4) 12/31/20 17:35 01/03/21 12:33 Albuterol/ Ipratropium (Duoneb (Ipr 0.5mg/Alb 2.5mg)) 3 ml RTID NEB 01/01/21 08:00 01/04/21 08:02 Apixaban (Eliquis) 5 mg BID PO 01/01/21 09:00 01/03/21 21:46 Artificial Tears (Akwa Tears) 2 drop TID OU 12/31/20 21:00 01/03/21 21:48 Atorvastatin Calcium (Lipitor) 40 mg QHS PO 01/01/21 21:00 01/03/21 21:46 Benzonatate (Tessalon Perles) 100 mg TID PO 01/01/21 09:00 01/03/21 21:46 Bisacodyl (Dulcolax Suppository) 10 mg DAILYPRN PRN [place] CONSTIPATION 12/31/20 17:35 Calcium/Vitamin D (Oscal D) 500 mg DAILY PO 01/01/21 09:00 01/03/21 08:33 Cefdinir (Omnicef) 300 mg BID PO 01/01/21 09:00 01/03/21 21:01 DC 01/03/21 21:46 Dextrose (Dextrose 50%) 25 ml ASDIRECTED PRN IV SEE LABEL COMMENTS 12/31/20 17:35 Diltiazem HCl (Cardizem Cd) 120 mg DAILY PO 01/01/21 09:00 01/03/21 08:32 Docusate Sodium (Colace) 100 mg BID PO 01/01/21 09:00 01/03/21 08:33 Glucagon (Glucagon) 1 mg ASDIRECTED PRN SC SEE LABEL COMMENTS 12/31/20 17:35 Glucose (Glucose) 16 GM ASDIRECTED PRN PO SEE LABEL COMMENTS 12/31/20 17:35 Guaifenesin (Robitussin Tab) 400 mg TID PO 12/31/20 21:00 01/03/21 21:46 Insulin Human Lispro (HumaLOG INSULIN) SEE PROTOCOL TABLE AC SC 01/01/21 07:30 01/03/21 17:28 Insulin Human Lispro (HumaLOG INSULIN) SEE PROTOCOL TABLE QHS SC 12/31/20 21:00 Lactobacillus Acidophilus (Bacid) 1 ea WMHS PO 12/31/20 21:00 01/03/21 21:46 Oxybutynin Chloride (Ditropan) 5 mg BID PO 12/31/20 21:00 01/03/21 21:46 Pantoprazole Sodium (Protonix) 40 mg DAILY PO 01/01/21 09:00 01/03/21 08:33 Potassium Chloride (Micro-K Extencaps) 20 meq DAILY PO 01/01/21 09:00 01/03/21 08:34 Prednisone (Deltasone) 40 mg DAILY PO 01/01/21 09:00 01/03/21 08:35 Senna (Senokot) 1 tab QHS PO 12/31/20 21:00 01/02/21 21:10 Spironolactone (Aldactone) 25 mg QAM PO 01/01/21 09:00 01/03/21 08:35 Sucralfate (Carafate) 1 gm ACHS PO 12/31/20 21:00 01/03/21 21:46 Torsemide (Demadex) 20 mg DAILY PO 01/01/21 09:00 01/03/21 08:33 DOMINIK STEWARD MD Jan 04, 2021 08:36
[2021-01-04] MEDS: DOCUSATE SODIUM 100MG CAPSULE PO SCH ×2 (08:49→20:46)
[2021-01-04] MEDS: oxyBUTYnin 5 MG TAB PO SCH ×2 (08:49→20:46)
[2021-01-04] MEDS: LACTOBACILLUS ACIDOPHILUS CAP (BACID) PO SCH ×4 (08:49→20:46)
[2021-01-04] MEDS: PANTOPRAZOLE 40MG TAB (PROTONIX) PO SCH (08:49)
[2021-01-04] MEDS: CALCIUM/VITAMIN D 500 MG TAB PO SCH (08:49)
[2021-01-04] MEDS: APIXABAN 5 MG TAB (ELIQUIS) PO SCH ×2 (08:49→20:46)
[2021-01-04] MEDS: BENZONATATE 100 MG CAP PO SCH ×3 (08:49→20:46)
[2021-01-04] MEDS: TORSEMIDE 20 MG TAB PO SCH (08:49)
[2021-01-04] MEDS: POTASSIUM CHLORIDE 10 MEQ SR TABLET PO SCH (08:50)
[2021-01-04] MEDS: predniSONE 20 MG TAB PO SCH (08:50)
[2021-01-04] MEDS: guaiFENesin 200 MG TAB PO SCH ×3 (08:50→20:47)
[2021-01-04] MEDS: SPIRONOLACTONE 25 MG TAB PO SCH (08:50)
[2021-01-04] MEDS: REMEDY PHYTOPLEX Z-GUARD PASTE 113GM TUBE (FROM STOREROOM PRODUCT) TOP SCH ×3 (08:50→20:48)
[2021-01-04] MEDS: POLYVINYL ALCOHOL OPHTH SOLN 15 ML(LIQUITEARS) OU SCH ×3 (08:51→20:48)
[2021-01-04] MEDS: SUCRALFATE 1 GM TAB PO SCH ×4 (08:56→20:46)
[2021-01-04 14:00] VITALS: BP 142/63
[2021-01-04 20:10] VITALS: BP 146/80
[2021-01-04] MEDS: SENNA 8.6 MG TAB (SENOKOT) PO SCH (20:46)
[2021-01-04] MEDS: ATORVASTATIN 20 MG TAB PO SCH (20:46)
[2021-01-05 06:00] VITALS: BP 155/66
[2021-01-05] MEDS: IPRATROPIUM 0.5MG/ALBUTEROL 2.5MG INH SOL UD 3ML (DUONEB) NEB SCH ×3 (07:26→20:01)
[2021-01-05 08:27] LABS: BASO % 0.1 % (0.0-1.0); EOS # 0.1 10^3/uL (0.0-0.5); EOS % 0.4 % (0.0-3.0); HEMOGLOBIN 11.3 g/dl (12.0-15.5); LYMPH # 2.1 10^3/uL (1.5-5.0); LYMPH % 16.1 % (24.0-44.0); MEAN CORPUSCULAR HEMOGLOBIN 28.7 pg (27.0-33.0); MEAN CORPUSCULAR HGB CONC 29.7 g/dl (32.0-36.5); MEAN CORPUSCULAR VOLUME 96.4 fl (80.0-96.0); MONO # 0.6 10^3/uL (0.0-0.8); MONO % 4.6 % (2.0-8.0); NEUTROPHILS # 10.3 10^3/uL (1.5-8.5); NEUTROPHILS % 77.9 % (36.0-66.0); PLATELET COUNT, AUTOMATED 198 10^3/uL (150-450); RED BLOOD COUNT 3.94 10^6/uL (4.00-5.40); WHITE BLOOD COUNT 13.2 10^3/uL (4.0-10.0)
[2021-01-05 08:55] LABS: BLOOD UREA NITROGEN 20 MG/DL (7-18); CALCIUM LEVEL 9.1 MG/DL (8.8-10.2); CARBON DIOXIDE LEVEL 39 MEQ/L (21-32); CHLORIDE LEVEL 100 MEQ/L (98-107); CREATININE FOR GFR 0.94 MG/DL (0.55-1.30); GLOMERULAR FILTRATION RATE > 60.0 (>32); GLUCOSE, FASTING 114 MG/DL (70-100); POTASSIUM SERUM 4.2 MEQ/L (3.5-5.1); SODIUM LEVEL 140 MEQ/L (136-145)
[2021-01-05] MEDS: BENZONATATE 100 MG CAP PO SCH ×3 (11:16→22:22)
[2021-01-05] MEDS: POTASSIUM CHLORIDE 10 MEQ SR TABLET PO SCH (11:16)
[2021-01-05] MEDS: guaiFENesin 200 MG TAB PO SCH ×3 (11:16→22:22)
[2021-01-05] MEDS: predniSONE 20 MG TAB PO SCH (11:17)
[2021-01-05] MEDS: SPIRONOLACTONE 25 MG TAB PO SCH (11:17)
[2021-01-05] MEDS: APIXABAN 5 MG TAB (ELIQUIS) PO SCH ×2 (11:17→22:23)
[2021-01-05] MEDS: PANTOPRAZOLE 40MG TAB (PROTONIX) PO SCH (11:18)
[2021-01-05] MEDS: CALCIUM/VITAMIN D 500 MG TAB PO SCH (11:18)
[2021-01-05] MEDS: TORSEMIDE 20 MG TAB PO SCH (11:18)
[2021-01-05] MEDS: oxyBUTYnin 5 MG TAB PO SCH ×2 (11:18→22:22)
[2021-01-05] MEDS: DOCUSATE SODIUM 100MG CAPSULE PO SCH ×2 (11:18→22:23)
[2021-01-05] MEDS: HumaLOG INSULIN (NovoLOG) PER UNIT SC SCH ×4 (11:19→22:27)
[2021-01-05] MEDS: LACTOBACILLUS ACIDOPHILUS CAP (BACID) PO SCH ×4 (11:21→22:23)
[2021-01-05] MEDS: SUCRALFATE 1 GM TAB PO SCH ×4 (11:22→22:23)
[2021-01-05] MEDS: POLYVINYL ALCOHOL OPHTH SOLN 15 ML(LIQUITEARS) OU SCH ×3 (11:26→22:24)
[2021-01-05] MEDS: REMEDY PHYTOPLEX Z-GUARD PASTE 113GM TUBE (FROM STOREROOM PRODUCT) TOP SCH ×3 (11:28→22:24)
--- NOTE | 2021-01-05 12:58 | IPNPDOC ---
PM&R Progress Note DATE OF SERVICE: Jan 05, 2021 Service Delivery Analyst Progress Note Subjective: Patient seen in her room reporting she feels good today and find therapy to be hard, but is able to handle it. REVIEW OF SYSTEMS: The following is a completed review of systems and has been reviewed. Review of systems otherwise unremarkable. PAIN: Patient self reports no pain EYES: No recent vision changes EARS, NOSE, & THROAT: No throat pain, or dysphagia, or rhinorrhea CARDIOVASCULAR: [Denies chest pain or palpitations PULMONARY: +short of breath (chronic), + cough (patient reporting baseline, improving) GASTROINTESTINAL: Denies constipation/diarrhea GENITOURINARY: denies dysuria MUSCULOSKELETAL: generalized weakness NEUROLOGICAL:denies paresthesias HEMATOLOGICAL: +easy bruising SKIN: thin skin PSYCHIATRIC: Unremarkable All other review of systems found to be negative. PHYSICAL EXAMINATION: VITAL SIGNS: Please see below. GENERAL: Pleasant and cooperative. No acute distress. mildly dyspneic, but not in distress HEENT: PERRL. Extraocular movements intact. Clear conjunctiva CARDIOVASCULAR: Regular rate and rhythm. No murmurs, rubs, or gallops LUNGS: Clear to auscultation bilaterally. No wheezes. No rhonchi ABDOMEN: Soft, nontender, nondistended. Positive bowel sounds. Normal active bowel sounds NEUROLOGICAL: Alert and oriented times three. Cranial nerves II through XII grossly intact. Sensation grossly intact EXTREMITIES: 5-\5 strength bilateral upper extremities. 5-\5 strength right lower extremity. 5-/5 strength in left lower extremity. +bilat LE edema (improving) SKIN: sacrum without ulcers, scattered ecchymosis ASSESSMENT:85-year-old F with past medical history of COPD and diastolic CHF who presents status post COPD exacerbation with encephalopathy PLAN: 1. Rehab- PT/OT advance mobility and ADLs, teach energy conservation, strengthen/stretch/maintain ROM all 4 limbs 2 Neuro- monitor for recurring encephalopathy 3. Cardiac- hx of diastolic CHF- fluid restrict, daily weights, torsemide (added back lower dose than home dosing to avoid ZAKIYA and will monitor), Aldactone -Afib on eliquis and CCB -HLD- c/u statin -medicine consulted to assist in overall management 4. Resp- s/p course of Cefdinir and Oral prednisone for COPD exacerbation, melinda Casey, 02 goal 88-92% -LIZETH on CPAP 5. Renal- CKD, monitor for ZAKIYA, if needed will consult renal for fluid management 6. GI ppx- protonix BID and sucralfate 7. DVT ppx- on eliquis 8. Endo- hx of DM c/u ISS 9. Pain- tylenol prn 10. DIspo- TBD Allergies Coded Allergies: No Known Allergies (Unverified , 12/25/18) Vital Signs Vital Signs Date Time Temp Pulse Resp B/P (MAP) Pulse Ox O2 Delivery O2 Flow Rate FiO2 01/05/21 11:17 68 155/66 01/05/21 09:00 2.0 01/05/21 06:00 97.4 20 98 NIPPV (BIPAP/CPAP) Laboratory Data CBC/BMP Laboratory Tests 01/05/21 08:07 Labs 24H Laboratory Tests 2 01/04/21 16:16: Bedside Glucose (Misc Panel) 238H 01/04/21 19:42: Bedside Glucose (Misc Panel) 261H 01/05/21 05:46: Bedside Glucose (Misc Panel) 111H 01/05/21 08:07: Immature Granulocyte % (Auto) 0.9, Neutrophils (%) (Auto) 77.9H, Lymphocytes (%) (Auto) 16.1L, Monocytes (%) (Auto) 4.6, Eosinophils (%) (Auto) 0.4, Basophils (%) (Auto) 0.1, Neutrophils # (Auto) 10.3H, Lymphocytes # (Auto) 2.1, Monocytes # (Auto) 0.6, Eosinophils # (Auto) 0.1, Basophils # (Auto) 0.0, Nucleated Red Blood Cells % (auto) 0.0, Anion Gap 1L, Glomerular Filtration Rate > 60.0, Calcium Level 9.1 01/05/21 11:22: Bedside Glucose (Misc Panel) 101 Current Medications Current Medications Current Medications Medications (Trade) Dose Ordered Sig/Yanet Route PRN Reason Start Time Stop Time Status Last Admin Dose Admin Acetaminophen (Tylenol Tab) 650 mg Q4HP PRN PO fever/MILD PAIN (PS 1-4) 12/31/20 17:35 01/03/21 12:33 Albuterol/ Ipratropium (Duoneb (Ipr 0.5mg/Alb 2.5mg)) 3 ml RTID NEB 01/01/21 08:00 01/05/21 07:26 Apixaban (Eliquis) 5 mg BID PO 01/01/21 09:00 01/05/21 11:17 Artificial Tears (Akwa Tears) 2 drop TID OU 12/31/20 21:00 01/05/21 11:26 Atorvastatin Calcium (Lipitor) 40 mg QHS PO 01/01/21 21:00 01/04/21 20:46 Benzonatate (Tessalon Perles) 100 mg TID PO 01/01/21 09:00 01/05/21 11:16 Bisacodyl (Dulcolax Suppository) 10 mg DAILYPRN PRN [place] CONSTIPATION 12/31/20 17:35 Calcium/Vitamin D (Oscal D) 500 mg DAILY PO 01/01/21 09:00 01/05/21 11:18 Cefdinir (Omnicef) 300 mg BID PO 01/01/21 09:00 01/03/21 21:01 DC 01/03/21 21:46 Dextrose (Dextrose 50%) 25 ml ASDIRECTED PRN IV SEE LABEL COMMENTS 12/31/20 17:35 Diltiazem HCl (Cardizem Cd) 120 mg DAILY PO 01/01/21 09:00 01/05/21 11:17 Docusate Sodium (Colace) 100 mg BID PO 01/01/21 09:00 01/05/21 11:18 Glucagon (Glucagon) 1 mg ASDIRECTED PRN SC SEE LABEL COMMENTS 12/31/20 17:35 Glucose (Glucose) 16 GM ASDIRECTED PRN PO SEE LABEL COMMENTS 12/31/20 17:35 Guaifenesin (Robitussin Tab) 400 mg TID PO 12/31/20 21:00 01/05/21 11:16 Insulin Human Lispro (HumaLOG INSULIN) SEE PROTOCOL TABLE AC SC 01/01/21 07:30 01/05/21 11:19 Insulin Human Lispro (HumaLOG INSULIN) SEE PROTOCOL TABLE QHS SC 12/31/20 21:00 01/04/21 20:47 Lactobacillus Acidophilus (Bacid) 1 ea WMHS PO 12/31/20 21:00 01/05/21 11:21 Oxybutynin Chloride (Ditropan) 5 mg BID PO 12/31/20 21:00 01/05/21 11:18 Pantoprazole Sodium (Protonix) 40 mg DAILY PO 01/01/21 09:00 01/05/21 11:18 Potassium Chloride (Micro-K Extencaps) 20 meq DAILY PO 01/01/21 09:00 01/05/21 11:16 Prednisone (Deltasone) 40 mg DAILY PO 01/01/21 09:00 01/05/21 11:17 Senna (Senokot) 1 tab QHS PO 12/31/20 21:00 01/04/21 20:46 Spironolactone (Aldactone) 25 mg QAM PO 01/01/21 09:00 01/05/21 11:17 Sucralfate (Carafate) 1 gm ACHS PO 12/31/20 21:00 01/05/21 11:22 Torsemide (Demadex) 20 mg DAILY PO 01/01/21 09:00 01/05/21 11:18 DOMINIK STEWARD MD Jan 05, 2021 12:58
[2021-01-05 14:00] VITALS: BP 143/65
[2021-01-05 21:30] VITALS: BP 134/83
[2021-01-05] MEDS: ATORVASTATIN 20 MG TAB PO SCH (22:23)
[2021-01-05] MEDS: SENNA 8.6 MG TAB (SENOKOT) PO SCH (22:23)
[2021-01-06 06:19] VITALS: BP 159/81
[2021-01-06] MEDS: HumaLOG INSULIN (NovoLOG) PER UNIT SC SCH ×4 (07:03→20:40)
[2021-01-06] MEDS: IPRATROPIUM 0.5MG/ALBUTEROL 2.5MG INH SOL UD 3ML (DUONEB) NEB SCH ×3 (07:21→20:19)
[2021-01-06] MEDS: SUCRALFATE 1 GM TAB PO SCH ×4 (07:47→20:40)
[2021-01-06] MEDS: CALCIUM/VITAMIN D 500 MG TAB PO SCH (07:47)
[2021-01-06] MEDS: TORSEMIDE 20 MG TAB PO SCH (07:48)
[2021-01-06] MEDS: APIXABAN 5 MG TAB (ELIQUIS) PO SCH ×2 (07:49→20:40)
[2021-01-06] MEDS: BENZONATATE 100 MG CAP PO SCH ×3 (07:49→20:39)
[2021-01-06] MEDS: LACTOBACILLUS ACIDOPHILUS CAP (BACID) PO SCH ×4 (07:49→20:40)
[2021-01-06] MEDS: DOCUSATE SODIUM 100MG CAPSULE PO SCH ×2 (07:49→20:40)
[2021-01-06] MEDS: PANTOPRAZOLE 40MG TAB (PROTONIX) PO SCH (07:49)
[2021-01-06] MEDS: predniSONE 20 MG TAB PO SCH (07:53)
[2021-01-06] MEDS: POTASSIUM CHLORIDE 10 MEQ SR TABLET PO SCH (07:54)
[2021-01-06] MEDS: guaiFENesin 200 MG TAB PO SCH ×3 (07:54→20:40)
[2021-01-06] MEDS: SPIRONOLACTONE 25 MG TAB PO SCH (07:55)
[2021-01-06] MEDS: POLYVINYL ALCOHOL OPHTH SOLN 15 ML(LIQUITEARS) OU SCH ×3 (08:01→20:41)
[2021-01-06] MEDS: REMEDY PHYTOPLEX Z-GUARD PASTE 113GM TUBE (FROM STOREROOM PRODUCT) TOP SCH ×3 (08:02→20:41)
[2021-01-06] MEDS: oxyBUTYnin 5 MG TAB PO SCH ×2 (08:03→20:40)
--- NOTE | 2021-01-06 12:05 | IPNPDOC ---
PM&R Progress Note DATE OF SERVICE: Jan 06, 2021 Calibrator Barometers Progress Note Subjective: Patient seen in her room reporting she is breathing better and has no complaints. REVIEW OF SYSTEMS: The following is a completed review of systems and has been reviewed. Review of systems otherwise unremarkable. PAIN: Patient self reports no pain EYES: No recent vision changes EARS, NOSE, & THROAT: No throat pain, or dysphagia, or rhinorrhea CARDIOVASCULAR: [Denies chest pain or palpitations PULMONARY: +short of breath (chronic), + cough (patient reporting baseline, improving) GASTROINTESTINAL: Denies constipation/diarrhea GENITOURINARY: denies dysuria MUSCULOSKELETAL: generalized weakness NEUROLOGICAL:denies paresthesias HEMATOLOGICAL: +easy bruising SKIN: thin skin PSYCHIATRIC: Unremarkable All other review of systems found to be negative. PHYSICAL EXAMINATION: VITAL SIGNS: Please see below. GENERAL: Pleasant and cooperative. No acute distress. mildly dyspneic, but not in distress HEENT: PERRL. Extraocular movements intact. Clear conjunctiva CARDIOVASCULAR: Regular rate and rhythm. No murmurs, rubs, or gallops LUNGS: Clear to auscultation bilaterally. No wheezes. No rhonchi ABDOMEN: Soft, nontender, nondistended. Positive bowel sounds. Normal active bowel sounds NEUROLOGICAL: Alert and oriented times three. Cranial nerves II through XII grossly intact. Sensation grossly intact EXTREMITIES: 5-\5 strength bilateral upper extremities. 5-\5 strength right lower extremity. 5-/5 strength in left lower extremity. +bilat LE edema (improving) SKIN: sacrum without ulcers, scattered ecchymosis ASSESSMENT:85-year-old F with past medical history of COPD and diastolic CHF who presents status post COPD exacerbation with encephalopathy PLAN: 1. Rehab- PT/OT advance mobility and ADLs, teach energy conservation, strengthen/stretch/maintain ROM all 4 limbs 2 Neuro- monitor for recurring encephalopathy 3. Cardiac- hx of diastolic CHF- fluid restrict, daily weights, torsemide (will increase to 40mg daily given weight gain, legs still appear less edematous, breathing stable, c/u to monitor kidney function), c/u Aldactone -Afib on eliquis and CCB -HLD- c/u statin -medicine consulted to assist in overall management 4. Resp- s/p course of Cefdinir and Oral prednisone for COPD exacerbation, DUonebs, acapella, 02 goal 88-92% -LIZETH on CPAP 5. Renal- CKD, monitor for ZAKIYA, if needed will consult renal for fluid management 6. GI ppx- protonix BID and sucralfate 7. DVT ppx- on eliquis 8. Endo- hx of DM c/u ISS 9. Pain- tylenol prn 10. DIspo- TBD Allergies Coded Allergies: No Known Allergies (Unverified , 12/25/18) Vital Signs Vital Signs Date Time Temp Pulse Resp B/P (MAP) Pulse Ox O2 Delivery O2 Flow Rate FiO2 01/06/21 08:00 2.0 01/06/21 07:49 83 159/81 01/06/21 06:19 96.6 18 91 NIPPV (BIPAP/CPAP) Laboratory Data Labs 24H Laboratory Tests 2 01/05/21 16:30: Bedside Glucose (Misc Panel) 205H 01/05/21 22:26: Bedside Glucose (Misc Panel) 165H 01/06/21 06:00: Bedside Glucose (Misc Panel) 89 01/06/21 11:33: Bedside Glucose (Misc Panel) 162H Current Medications Current Medications Current Medications Medications (Trade) Dose Ordered Sig/Yanet Route PRN Reason Start Time Stop Time Status Last Admin Dose Admin Acetaminophen (Tylenol Tab) 650 mg Q4HP PRN PO fever/MILD PAIN (PS 1-4) 12/31/20 17:35 01/03/21 12:33 Albuterol/ Ipratropium (Duoneb (Ipr 0.5mg/Alb 2.5mg)) 3 ml RTID NEB 01/01/21 08:00 01/06/21 07:21 Apixaban (Eliquis) 5 mg BID PO 01/01/21 09:00 01/06/21 07:49 Artificial Tears (Akwa Tears) 2 drop TID OU 12/31/20 21:00 01/06/21 08:01 Atorvastatin Calcium (Lipitor) 40 mg QHS PO 01/01/21 21:00 01/05/21 22:23 Benzonatate (Tessalon Perles) 100 mg TID PO 01/01/21 09:00 01/06/21 07:49 Bisacodyl (Dulcolax Suppository) 10 mg DAILYPRN PRN [place] CONSTIPATION 12/31/20 17:35 Calcium/Vitamin D (Oscal D) 500 mg DAILY PO 01/01/21 09:00 01/06/21 07:47 Cefdinir (Omnicef) 300 mg BID PO 01/01/21 09:00 01/03/21 21:01 DC 01/03/21 21:46 Dextrose (Dextrose 50%) 25 ml ASDIRECTED PRN IV SEE LABEL COMMENTS 12/31/20 17:35 Diltiazem HCl (Cardizem Cd) 120 mg DAILY PO 01/01/21 09:00 01/06/21 07:49 Docusate Sodium (Colace) 100 mg BID PO 01/01/21 09:00 01/06/21 07:49 Glucagon (Glucagon) 1 mg ASDIRECTED PRN SC SEE LABEL COMMENTS 12/31/20 17:35 Glucose (Glucose) 16 GM ASDIRECTED PRN PO SEE LABEL COMMENTS 12/31/20 17:35 Guaifenesin (Robitussin Tab) 400 mg TID PO 12/31/20 21:00 01/06/21 07:54 Insulin Human Lispro (HumaLOG INSULIN) SEE PROTOCOL TABLE AC SC 01/01/21 07:30 01/05/21 17:25 Insulin Human Lispro (HumaLOG INSULIN) SEE PROTOCOL TABLE QHS SC 12/31/20 21:00 01/04/21 20:47 Lactobacillus Acidophilus (Bacid) 1 ea WMHS PO 12/31/20 21:00 01/06/21 07:49 Oxybutynin Chloride (Ditropan) 5 mg BID PO 12/31/20 21:00 01/06/21 08:03 Pantoprazole Sodium (Protonix) 40 mg DAILY PO 01/01/21 09:00 01/06/21 07:49 Potassium Chloride (Micro-K Extencaps) 20 meq DAILY PO 01/01/21 09:00 01/06/21 07:54 Prednisone (Deltasone) 40 mg DAILY PO 01/01/21 09:00 01/06/21 07:53 Senna (Senokot) 1 tab QHS PO 12/31/20 21:00 01/05/21 22:23 Spironolactone (Aldactone) 25 mg QAM PO 01/01/21 09:00 01/06/21 07:55 Sucralfate (Carafate) 1 gm ACHS PO 12/31/20 21:00 01/06/21 07:47 Torsemide (Demadex) 20 mg DAILY PO 01/01/21 09:00 01/06/21 07:48 DOMINIK STEWARD MD Jan 06, 2021 12:05
[2021-01-06 14:00] VITALS: BP 113/62
[2021-01-06 20:10] VITALS: BP 131/70
[2021-01-06] MEDS: ATORVASTATIN 20 MG TAB PO SCH (20:40)
[2021-01-06] MEDS: SENNA 8.6 MG TAB (SENOKOT) PO SCH (20:40)
[2021-01-07 06:35] VITALS: BP 135/76
[2021-01-07] MEDS: IPRATROPIUM 0.5MG/ALBUTEROL 2.5MG INH SOL UD 3ML (DUONEB) NEB SCH ×3 (07:20→20:32)
[2021-01-07] MEDS: HumaLOG INSULIN (NovoLOG) PER UNIT SC SCH ×4 (07:30→20:25)
[2021-01-07] MEDS: SUCRALFATE 1 GM TAB PO SCH ×4 (07:30→20:25)
[2021-01-07 08:12] LABS: BASO % 0.2 % (0.0-1.0); EOS # 0.1 10^3/uL (0.0-0.5); HEMATOCRIT 37.3 % (36.0-47.0); LYMPH # 1.9 10^3/uL (1.5-5.0); LYMPH % 14.4 % (24.0-44.0); MEAN CORPUSCULAR HEMOGLOBIN 28.5 pg (27.0-33.0); MEAN CORPUSCULAR HGB CONC 29.5 g/dl (32.0-36.5); MEAN CORPUSCULAR VOLUME 96.6 fl (80.0-96.0); MONO # 0.8 10^3/uL (0.0-0.8); MONO % 5.7 % (2.0-8.0); NEUTROPHILS # 10.3 10^3/uL (1.5-8.5); NEUTROPHILS % 77.9 % (36.0-66.0); PLATELET COUNT, AUTOMATED 214 10^3/uL (150-450); RED BLOOD COUNT 3.86 10^6/uL (4.00-5.40); WHITE BLOOD COUNT 13.2 10^3/uL (4.0-10.0)
[2021-01-07 08:30] LABS: CALCIUM LEVEL 8.9 MG/DL (8.8-10.2); CREATININE FOR GFR 1.07 MG/DL (0.55-1.30); GLOMERULAR FILTRATION RATE 52.1 (>32)
[2021-01-07] MEDS: BENZONATATE 100 MG CAP PO SCH ×3 (09:41→20:25)
[2021-01-07] MEDS: CALCIUM/VITAMIN D 500 MG TAB PO SCH (09:41)
[2021-01-07] MEDS: oxyBUTYnin 5 MG TAB PO SCH ×2 (09:41→20:25)
[2021-01-07] MEDS: guaiFENesin 200 MG TAB PO SCH ×3 (09:41→20:25)
[2021-01-07] MEDS: PANTOPRAZOLE 40MG TAB (PROTONIX) PO SCH (09:41)
[2021-01-07] MEDS: APIXABAN 5 MG TAB (ELIQUIS) PO SCH ×2 (09:41→20:25)
[2021-01-07] MEDS: DOCUSATE SODIUM 100MG CAPSULE PO SCH ×2 (09:41→20:24)
[2021-01-07] MEDS: LACTOBACILLUS ACIDOPHILUS CAP (BACID) PO SCH ×4 (09:41→20:25)
[2021-01-07] MEDS: SPIRONOLACTONE 25 MG TAB PO SCH (09:41)
[2021-01-07] MEDS: TORSEMIDE 20 MG TAB PO SCH (09:42)
[2021-01-07] MEDS: POTASSIUM CHLORIDE 10 MEQ SR TABLET PO SCH (09:43)
[2021-01-07] MEDS: predniSONE 20 MG TAB PO SCH (09:43)
[2021-01-07] MEDS: REMEDY PHYTOPLEX Z-GUARD PASTE 113GM TUBE (FROM STOREROOM PRODUCT) TOP SCH ×3 (09:44→20:26)
[2021-01-07] MEDS: POLYVINYL ALCOHOL OPHTH SOLN 15 ML(LIQUITEARS) OU SCH ×3 (09:44→20:26)
[2021-01-07 14:00] VITALS: BP 132/72
--- NOTE | 2021-01-07 14:33 | IPNPDOC ---
PM&R Progress Note Emulsion Operator Progress Note DATE OF ADMISSION: Dec 31, 2020 at 22:20 INPATIENT REHABILITATION ADMISSION DAY: # SUBJECTIVE: Patient is a -year-old with . ALLERGIES: See Below MEDICATIONS: Reviewed, see below. OBJECTIVE: VITAL SIGNS: Please see below. PHYSICAL EXAMINATION: GENERAL: [Cachectic, well developed, sitting up in bed, no acute distress]. HEENT: [Normocephalic, atraumatic]. [No facial droop]. [Poor dentition, missing teeth. PERRL, EOMI]. CARDIOVASCULAR: [S1, S2, irregular rate]. [No lower limb edema or calf tenderness]. LUNGS: [Decreased breath sounds, coarse throughout]. ABDOMEN: [Soft, nontender, nondistended. Normoactive bowel sounds throughout]. MUSCULOSKELETAL: MMT: /5 strength proximally bilateral shoulder abduction, f orward flexion and bilateral hip flexion. /5 strength bilateral elbow flexion, knee flexion, /5 bilateral elbow extension and knee extension. /5 night stocker, dorsiflexion, plantar flexion. NEUROLOGICAL: [Alert and oriented times three]. [Answers all question appropriately]. SKIN: . LABORATORY DATA: Reviewed. Please see below. MICROBIOLOGY: Please see below. IMAGING: ASSESSMENT AND PLAN: 1. . 2. . 3. . TIME SPENT: Chart Review, examination and documentation minutes. Allergies Coded Allergies: No Known Allergies (Unverified , 12/25/18) Vital Signs Vital Signs Date Time Temp Pulse Resp B/P (MAP) Pulse Ox O2 Delivery O2 Flow Rate FiO2 01/07/21 14:00 97.8 83 18 132/72 (92) 94 NIPPV (BIPAP/CPAP) 2.0 Laboratory Data CBC/BMP Laboratory Tests 01/07/21 07:12 Labs 24H Laboratory Tests 2 01/06/21 16:38: Bedside Glucose (Misc Panel) 268H 01/06/21 20:06: Bedside Glucose (Misc Panel) 170H 01/07/21 06:13: Bedside Glucose (Misc Panel) 98 01/07/21 07:12: Immature Granulocyte % (Auto) 0.8, Neutrophils (%) (Auto) 77.9H, Lymphocytes (%) (Auto) 14.4L, Monocytes (%) (Auto) 5.7, Eosinophils (%) (Auto) 1.0, Basophils (%) (Auto) 0.2, Neutrophils # (Auto) 10.3H, Lymphocytes # (Auto) 1.9, Monocytes # (Auto) 0.8, Eosinophils # (Auto) 0.1, Basophils # (Auto) 0.0, Nucleated Red Blood Cells % (auto) 0.0, Anion Gap 2L, Glomerular Filtration Rate 52.1, Calcium Level 8.9 01/07/21 11:21: Bedside Glucose (Misc Panel) 134H Current Medications Current Medications Current Medications Medications (Trade) Dose Ordered Sig/Yanet Route PRN Reason Start Time Stop Time Status Last Admin Dose Admin Acetaminophen (Tylenol Tab) 650 mg Q4HP PRN PO fever/MILD PAIN (PS 1-4) 12/31/20 17:35 01/03/21 12:33 Albuterol/ Ipratropium (Duoneb (Ipr 0.5mg/Alb 2.5mg)) 3 ml RTID NEB 01/01/21 08:00 01/07/21 13:15 Apixaban (Eliquis) 5 mg BID PO 01/01/21 09:00 01/07/21 09:41 Artificial Tears (Akwa Tears) 2 drop TID OU 12/31/20 21:00 01/07/21 09:44 Atorvastatin Calcium (Lipitor) 40 mg QHS PO 01/01/21 21:00 01/06/21 20:40 Benzonatate (Tessalon Perles) 100 mg TID PO 01/01/21 09:00 01/07/21 09:41 Bisacodyl (Dulcolax Suppository) 10 mg DAILYPRN PRN [place] CONSTIPATION 12/31/20 17:35 Calcium/Vitamin D (Oscal D) 500 mg DAILY PO 01/01/21 09:00 01/07/21 09:41 Cefdinir (Omnicef) 300 mg BID PO 01/01/21 09:00 01/03/21 21:01 DC 01/03/21 21:46 Dextrose (Dextrose 50%) 25 ml ASDIRECTED PRN IV SEE LABEL COMMENTS 12/31/20 17:35 Diltiazem HCl (Cardizem Cd) 120 mg DAILY PO 01/01/21 09:00 01/07/21 09:42 Docusate Sodium (Colace) 100 mg BID PO 01/01/21 09:00 01/07/21 09:41 Glucagon (Glucagon) 1 mg ASDIRECTED PRN SC SEE LABEL COMMENTS 12/31/20 17:35 Glucose (Glucose) 16 GM ASDIRECTED PRN PO SEE LABEL COMMENTS 12/31/20 17:35 Guaifenesin (Robitussin Tab) 400 mg TID PO 12/31/20 21:00 01/07/21 09:41 Insulin Human Lispro (HumaLOG INSULIN) SEE PROTOCOL TABLE AC SC 01/01/21 07:30 01/07/21 12:53 Insulin Human Lispro (HumaLOG INSULIN) SEE PROTOCOL TABLE QHS SC 12/31/20 21:00 01/04/21 20:47 Lactobacillus Acidophilus (Bacid) 1 ea WMHS PO 12/31/20 21:00 01/07/21 12:52 Oxybutynin Chloride (Ditropan) 5 mg BID PO 12/31/20 21:00 01/07/21 09:41 Pantoprazole Sodium (Protonix) 40 mg DAILY PO 01/01/21 09:00 01/07/21 09:41 Potassium Chloride (Micro-K Extencaps) 20 meq DAILY PO 01/01/21 09:00 01/07/21 09:43 Prednisone (Deltasone) 40 mg DAILY PO 01/01/21 09:00 01/07/21 09:43 Senna (Senokot) 1 tab QHS PO 12/31/20 21:00 01/06/21 20:40 Spironolactone (Aldactone) 25 mg QAM PO 01/01/21 09:00 01/07/21 09:41 Sucralfate (Carafate) 1 gm ACHS PO 12/31/20 21:00 01/07/21 12:52 Torsemide (Demadex) 20 mg DAILY PO 01/01/21 09:00 01/06/21 12:04 DC 01/06/21 07:48 Torsemide (Demadex) 40 mg DAILY PO 01/07/21 09:00 01/07/21 09:42 DOMINIK STEWARD MD Jan 07, 2021 14:33
[2021-01-07 16:08] VITALS: BP 132/72
[2021-01-07 20:00] VITALS: BP 161/80
[2021-01-07] MEDS: SENNA 8.6 MG TAB (SENOKOT) PO SCH (20:25)
[2021-01-07] MEDS: ATORVASTATIN 20 MG TAB PO SCH (20:25)
[2021-01-08 05:21] VITALS: BP 149/91
[2021-01-08] MEDS: HumaLOG INSULIN (NovoLOG) PER UNIT SC SCH ×4 (07:30→20:22)
[2021-01-08] MEDS: IPRATROPIUM 0.5MG/ALBUTEROL 2.5MG INH SOL UD 3ML (DUONEB) NEB SCH ×3 (07:31→19:54)
[2021-01-08] MEDS: APIXABAN 5 MG TAB (ELIQUIS) PO SCH ×2 (08:23→20:22)
[2021-01-08] MEDS: DOCUSATE SODIUM 100MG CAPSULE PO SCH ×2 (08:23→20:21)
[2021-01-08] MEDS: SUCRALFATE 1 GM TAB PO SCH ×4 (08:23→20:21)
[2021-01-08] MEDS: LACTOBACILLUS ACIDOPHILUS CAP (BACID) PO SCH ×4 (08:23→20:21)
[2021-01-08] MEDS: BENZONATATE 100 MG CAP PO SCH ×3 (08:24→20:22)
[2021-01-08] MEDS: oxyBUTYnin 5 MG TAB PO SCH ×2 (08:24→20:21)
[2021-01-08] MEDS: SPIRONOLACTONE 25 MG TAB PO SCH (08:24)
[2021-01-08] MEDS: CALCIUM/VITAMIN D 500 MG TAB PO SCH (08:24)
[2021-01-08] MEDS: PANTOPRAZOLE 40MG TAB (PROTONIX) PO SCH (08:24)
[2021-01-08] MEDS: guaiFENesin 200 MG TAB PO SCH ×3 (08:25→20:21)
[2021-01-08] MEDS: TORSEMIDE 20 MG TAB PO SCH (08:25)
[2021-01-08] MEDS: predniSONE 20 MG TAB PO SCH (08:25)
[2021-01-08] MEDS: POTASSIUM CHLORIDE 10 MEQ SR TABLET PO SCH (08:25)
[2021-01-08] MEDS: REMEDY PHYTOPLEX Z-GUARD PASTE 113GM TUBE (FROM STOREROOM PRODUCT) TOP SCH ×3 (08:26→20:22)
[2021-01-08] MEDS: POLYVINYL ALCOHOL OPHTH SOLN 15 ML(LIQUITEARS) OU SCH ×3 (08:26→20:22)
[2021-01-08 14:00] VITALS: BP 135/67
[2021-01-08 20:00] VITALS: BP 163/76
[2021-01-08] MEDS: ATORVASTATIN 20 MG TAB PO SCH (20:21)
[2021-01-08] MEDS: SENNA 8.6 MG TAB (SENOKOT) PO SCH (20:21)
[2021-01-09 05:22] VITALS: BP 137/64
[2021-01-09] MEDS: IPRATROPIUM 0.5MG/ALBUTEROL 2.5MG INH SOL UD 3ML (DUONEB) NEB SCH ×3 (07:26→20:27)
[2021-01-09 07:41] VITALS: BP 137/64
[2021-01-09] MEDS: SUCRALFATE 1 GM TAB PO SCH ×4 (07:41→20:29)
[2021-01-09] MEDS: POTASSIUM CHLORIDE 10 MEQ SR TABLET PO SCH (07:42)
[2021-01-09] MEDS: oxyBUTYnin 5 MG TAB PO SCH ×2 (07:42→20:29)
[2021-01-09] MEDS: CALCIUM/VITAMIN D 500 MG TAB PO SCH (07:42)
[2021-01-09] MEDS: APIXABAN 5 MG TAB (ELIQUIS) PO SCH ×2 (07:42→20:30)
[2021-01-09] MEDS: predniSONE 20 MG TAB PO SCH (07:43)
[2021-01-09] MEDS: DOCUSATE SODIUM 100MG CAPSULE PO SCH ×2 (07:43→20:29)
[2021-01-09] MEDS: BENZONATATE 100 MG CAP PO SCH ×3 (07:43→20:29)
[2021-01-09] MEDS: TORSEMIDE 20 MG TAB PO SCH ×2 (07:44→20:30)
[2021-01-09] MEDS: PANTOPRAZOLE 40MG TAB (PROTONIX) PO SCH (07:44)
[2021-01-09] MEDS: LACTOBACILLUS ACIDOPHILUS CAP (BACID) PO SCH ×4 (07:44→20:29)
[2021-01-09] MEDS: SPIRONOLACTONE 25 MG TAB PO SCH (07:45)
[2021-01-09] MEDS: guaiFENesin 200 MG TAB PO SCH ×3 (07:45→20:29)
[2021-01-09] MEDS: POLYVINYL ALCOHOL OPHTH SOLN 15 ML(LIQUITEARS) OU SCH ×3 (07:46→20:30)
[2021-01-09] MEDS: REMEDY PHYTOPLEX Z-GUARD PASTE 113GM TUBE (FROM STOREROOM PRODUCT) TOP SCH ×3 (07:46→20:31)
[2021-01-09] MEDS: HumaLOG INSULIN (NovoLOG) PER UNIT SC SCH ×4 (07:50→20:48)
[2021-01-09 14:00] VITALS: BP 140/62
--- NOTE | 2021-01-09 14:45 | IPNPDOC ---
Text Note Date of Service The patient was seen on 01/09/21. NOTE Subjective: Patient is an 85-year-old female with a PMHx of COPD, Paroxysmal A fib, DM2, DLP, CKD3 region presented to emergency room with confusion secondary to hypercarbia secondary COPD exacerbation on 12/27. Patient had improvement in her condition and was eventually transitioned to the acute rehabilitation unit on 12/31 PT and OT. Patient was seen and examined at the bedside. Patient is seen sitting up in bed watching television. Reports that her breathing is doing fine. Denies any chest pain, shortness of breath, palpitations, abdominal pain, diarrhea, or urinary discomfort. Objective: Vitals (See below) General: Lying in bed, comfortable, AAOx3 HEENT: NC, AT CVS: +S1S2 Lungs: Diminished airflow bilaterally, however, there does not appear to be any wheezing, crackles or rhonchi Abdomen: Soft, ND, NT Extremities: 2+ pitting edema bilaterally, - Calf tenderness Assessment and plan: Cor pulmonale, HFpEF - Currently appears to be decompensated - Low extremities reveal significant 2+ pitting edema bilaterally - Will check BMP / CMP / BNP / CXR - c/w Spironolactone - Will increase frequency of Torsemide s/p Acute on Chronic hypoxemia - Patient is currently saturating well on her baseline oxygen of 2L via NC - Physical does not reveal any wheezing - Will reduce dose of Prednisone - s/p Cefdinir - c/w inhaled therapy as ordered s/p Acute metabolic encephalopathy 2/2 hypercarbia CKD3 - Creatinine baseline of approximately 1.1-1.2 s/p UTI - Urine culture 12/28: grew proteus mirabilis Paroxysmal Atrial Fibrillation - c/w rate control with Cardizem - c/w full anticoagulation with Eliquis DLP - c/w Atorvastatin NIDDM2 - c/w ISS GERD - c/w Protonix / Carafate DVT prophylaxis - c/w full anticoagulation with Eliquis Disposition: - As per ARU VS,Saurabhbone, I+O VS, Fishbone, I+O Vital Signs Date Time Temp Pulse Resp B/P (MAP) Pulse Ox O2 Delivery O2 Flow Rate FiO2 01/09/21 07:41 69 137/64 01/09/21 05:22 97.4 19 99 NIPPV (BIPAP/CPAP) 2.0 I&O- Last 24 Hours up to 6 AM 01/09/21 05:59 Intake Total 1070 ml Balance 1070 ml KIRAN KOROMA MD Jan 09, 2021 14:45
[2021-01-09 15:12] LABS: BASO % 0.1 % (0.0-1.0); HEMATOCRIT 38.2 % (36.0-47.0); HEMOGLOBIN 11.6 g/dl (12.0-15.5); LYMPH # 0.5 10^3/uL (1.5-5.0); LYMPH % 2.8 % (24.0-44.0); MEAN CORPUSCULAR HEMOGLOBIN 28.9 pg (27.0-33.0); MEAN CORPUSCULAR HGB CONC 30.4 g/dl (32.0-36.5); MONO # 0.2 10^3/uL (0.0-0.8); MONO % 1.5 % (2.0-8.0); PLATELET COUNT, AUTOMATED 217 10^3/uL (150-450); RED BLOOD COUNT 4.02 10^6/uL (4.00-5.40); WHITE BLOOD COUNT 15.8 10^3/uL (4.0-10.0)
[2021-01-09 15:38] LABS: CALCIUM LEVEL 8.6 MG/DL (8.8-10.2); CREATININE FOR GFR 1.46 MG/DL (0.55-1.30); GLOMERULAR FILTRATION RATE 36.4 (>32); MAGNESIUM LEVEL 2.2 MG/DL (1.8-2.4); POTASSIUM SERUM 4.2 MEQ/L (3.5-5.1)
--- NOTE | 2021-01-09 15:45 | REP ---
INDICATION: LE edema. COMPARISON: 12/27/2020. TECHNIQUE: SINGLE PORTABLE AP VIEW OF THE CHEST WAS PERFORMED. FINDINGS: There is mild bibasilar fibro atelectatic change. No superimposed acute infiltrate is seen. Heart is upper limits of normal in size. The mediastinal silhouette is unchanged. IMPRESSION: NO ACUTE PULMONARY DISEASE. <Electronically signed by Cayetano Okeefe > 01/09/21 1349
[2021-01-09 20:10] VITALS: BP 142/70
[2021-01-09] MEDS: SENNA 8.6 MG TAB (SENOKOT) PO SCH (20:29)
[2021-01-09] MEDS: ATORVASTATIN 20 MG TAB PO SCH (20:30)
[2021-01-09] MEDS: ACETAMINOPHEN TAB 650MG DOSE (2X325MG) PO PRN (20:31)
[2021-01-10 06:03] VITALS: BP 128/68
[2021-01-10] MEDS: IPRATROPIUM 0.5MG/ALBUTEROL 2.5MG INH SOL UD 3ML (DUONEB) NEB SCH (07:21)
[2021-01-10] MEDS: HumaLOG INSULIN (NovoLOG) PER UNIT SC SCH ×2 (07:30→12:00)
[2021-01-10] MEDS: SUCRALFATE 1 GM TAB PO SCH ×2 (07:30→12:00)
[2021-01-10] MEDS: LACTOBACILLUS ACIDOPHILUS CAP (BACID) PO SCH ×2 (08:00→12:30)
[2021-01-10] MEDS ORDERED: predniSONE 10 MG TAB PO SCH (09:00)
[2021-01-10] MEDS: SPIRONOLACTONE 25 MG TAB PO SCH (09:35)
[2021-01-10] MEDS: guaiFENesin 200 MG TAB PO SCH (09:35)
[2021-01-10] MEDS: CALCIUM/VITAMIN D 500 MG TAB PO SCH (09:36)
[2021-01-10] MEDS: DOCUSATE SODIUM 100MG CAPSULE PO SCH (09:36)
[2021-01-10] MEDS: APIXABAN 5 MG TAB (ELIQUIS) PO SCH (09:36)
[2021-01-10] MEDS: POTASSIUM CHLORIDE 10 MEQ SR TABLET PO SCH (09:36)
[2021-01-10] MEDS: BENZONATATE 100 MG CAP PO SCH (09:36)
[2021-01-10] MEDS: oxyBUTYnin 5 MG TAB PO SCH (09:36)
[2021-01-10] MEDS: TORSEMIDE 20 MG TAB PO SCH (09:36)
[2021-01-10] MEDS: PANTOPRAZOLE 40MG TAB (PROTONIX) PO SCH (09:37)
[2021-01-10] MEDS: POLYVINYL ALCOHOL OPHTH SOLN 15 ML(LIQUITEARS) OU SCH (09:38)
[2021-01-10] MEDS: REMEDY PHYTOPLEX Z-GUARD PASTE 113GM TUBE (FROM STOREROOM PRODUCT) TOP SCH (09:38)
[2021-01-10 09:45] LABS: BASO % 0.1 % (0.0-1.0); EOS # 0.1 10^3/uL (0.0-0.5); EOS % 0.6 % (0.0-3.0); HEMATOCRIT 40.3 % (36.0-47.0); LYMPH % 9.6 % (24.0-44.0); MEAN CORPUSCULAR HEMOGLOBIN 28.5 pg (27.0-33.0); MEAN CORPUSCULAR HGB CONC 29.8 g/dl (32.0-36.5); MEAN CORPUSCULAR VOLUME 95.7 fl (80.0-96.0); MONO # 1.1 10^3/uL (0.0-0.8); MONO % 5.4 % (2.0-8.0); NEUTROPHILS # 17.5 10^3/uL (1.5-8.5); NEUTROPHILS % 83.6 % (36.0-66.0); PLATELET COUNT, AUTOMATED 237 10^3/uL (150-450); RED BLOOD COUNT 4.21 10^6/uL (4.00-5.40); WHITE BLOOD COUNT 20.9 10^3/uL (4.0-10.0)
[2021-01-10 10:30] LABS: ALBUMIN 3.1 GM/DL (3.2-5.2); BILIRUBIN,TOTAL 0.4 MG/DL (0.2-1.0); CALCIUM LEVEL 9.3 MG/DL (8.8-10.2); CREATININE FOR GFR 1.27 MG/DL (0.55-1.30); GLOMERULAR FILTRATION RATE 42.8 (>32); MAGNESIUM LEVEL 2.4 MG/DL (1.8-2.4); PHOSPHORUS LEVEL 3.1 MG/DL (2.5-4.9); POTASSIUM SERUM 3.6 MEQ/L (3.5-5.1); TOTAL PROTEIN 6.2 GM/DL (6.4-8.2)
--- NOTE | 2021-01-10 10:51 | IPNPDOC ---
Text Note Date of Service The patient was seen on 01/10/21. NOTE Rapid assessment / Max Cart: - Code was called 953 / 954 - Upon my arrival to room patient was found sitting up in recliner - It was reported that patient was taking her medications and had aspirated and started choking - Suction was set up in the room, however, patient had become pulseless and unresponsive - Patient was noted to be DNR / DNI - We have attempted to deep suction pills from her airway with minimal success - Patient was lifted back into her bed - She was given a trial on her Trilogy ventilator - Patient was not breathing on her own - Patient was in pulseless electrical activity - Patient was ultimately pronounced at 1016AM - Family was notified and will be arriving to the hospital Gregg JURADO, I+O Gregg JURADO I+O Laboratory Tests 01/09/21 15:01 01/10/21 09:18 Vital Signs Date Time Temp Pulse Resp B/P (MAP) Pulse Ox O2 Delivery O2 Flow Rate FiO2 01/10/21 07:21 Nasal Cannula 2.0 01/10/21 06:03 96.9 67 18 128/68 (88) 98 01/09/21 20:27 28 I&O- Last 24 Hours up to 6 AM 01/10/21 06:00 Intake Total 680 ml Balance 680 ml KIRAN KOROMA MD Jan 10, 2021 10:51
--- NOTE | 2021-01-10 15:29 | CCN ---
CRITICAL CARE NOTE DATE: 01/10/2021 Critical care time was 36 minutes.This excludes all procedures. SUBJECTIVE: I was called to a Code Blue to the patient's room. The patient has been known to be DO NOT RESUSCITATE. It is written in her chart. The patient was not breathing, had a palpable pulse, was placed in bed. Placed on a rhythm monitor, had an agonal pulse of 26. Because the patient was DO NOT RESUSCITATE, DO NOT INTUBATE I called the patient's daughter. The patient's daughter stressed that she wanted Trilogy, NIV. I explained to her that would not be indicated at this point in time and actually contraindicated because of her unresponsive status. She wanted me to try anyway. I told her this would be futile. Trilogy was placed on the patient for a short period of time, however, no return of spontaneous respirations. The patient had no pulse and therefore time of was determined at 10:16. According to the nursing staff, she had a choking episode and just prior, deep suctioning was performed but the patient did not respond to suctioning. We decided to continue to respect her wishes, and no resuscitation was performed based on her predetermined wishes. I discussed the case with Dr. Sanchez. Dx: 1. respiratory arrest 2. Aspiration 3. 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
--- NOTE | 2021-01-10 17:55 | PMRDS ---
NAME: CLAIR LR [facility] WT ID#: [id number] JOB: [id number] MERA: 01/10/2021 ACCT: [id number] DOCTOR: DOMINIK STEWARD MD PMR DISCHARGE SUMMARY DATE OF ADMISSION: 12/31/2020 DATE OF EXPIRATION/DISCHARGE: 01/10/2021 CHIEF COMPLAINT/DISCHARGE DIAGNOSIS: Chronic obstructive pulmonary disease (COPD) exacerbation with expiration on the rehab unit. HISTORY OF PRESENT ILLNESS: An 85-year-old female with a past medical history of chronic diastolic CHF, COPD on oxygen, atrial fibrillation, pulmonary hypertension, diabetes, CKD, Cor pulmonale, and chronic venous insufficiency presented to [facility] ED on 12/27/2020 with worsening difficulty breathing and cough. Chest x-ray revealed "limited examination, cannot exclude bibasilar atelectasis and possible small right pleural effusion" and CT chest ruled out pulmonary emboli. She was diagnosed with a COPD exacerbation with hypercarbia respiratory failure and started on cefdinir and oral prednisone. She was also encephalopathic, which improved with medical treatment for her respiratory illness. She was diagnosed with a UTI, had mobility and ADL impairments, and was deemed medically appropriate for discharge to ARU on 12/31/2020. PAST MEDICAL HISTORY: As per HPI. HOSPITAL COURSE: The patient was admitted and enrolled in a comprehensive PT and OT program. She received 24-hour nursing supervision and weekly team meetings were held to discuss her progress. The patient was maintained on diuretics for her diastolic CHF. Eliquis and a calcium channel hector for her AFib. The patient finished up a course of cefdinir and was maintained on a steroid taper for her COPD exacerbation. She was making steady functional gains in therapy when on 01/10/2021, the patient appeared to choke on her medication after which suctioning was administered and contents removed from her pharynx. The patient, however, was apneic and although had a pulse was nonresponsive. MAX cart was called. Cardiopulmonary resuscitation was not provided given the patient's DNR/DNI standing. The patient's daughter was called who requested that her Trilogy mask be placed. Dr. Jimenez placed the Trilogy mask on the patient, which did not make any improvement. The patient was considered to have on 01/10/2021 at 1016. The patient's daughter and son came to see the patient bedside and expressed sadness and understanding regarding the patient's .
== END 2021-01-10 14:00 | disposition expired | DRG 555 ==
LOC: M PM&R 22:20
PROVIDERS: ADMIT Physical Medicine & Rehabilitation; ATTEND Physical Medicine & Rehabilitation
DX: M62.81 Muscle weakness (generalized) (principal); I50.33 Acute on chronic diastolic (congestive) heart failure; J44.1 Chronic obstructive pulmonary disease with (acute) exacerbation; I13.0 Hypertensive heart and chronic kidney disease with heart failure and stage 1 through stage 4 chronic kidney disease, or unspecified chronic kidney disease; J96.11 Chronic respiratory failure with hypoxia; J96.12 Chronic respiratory failure with hypercapnia; T17.808A Unspecified foreign body in other parts of respiratory tract causing other injury, initial encounter; I48.0 Paroxysmal atrial fibrillation; I27.81 Cor pulmonale (chronic); N18.30 Chronic kidney disease, stage 3 unspecified; I87.2 Venous insufficiency (chronic) (peripheral); Z87.891 Personal history of nicotine dependence; Z79.01 Long term (current) use of anticoagulants; Z79.899 Other long term (current) drug therapy; Z66 Do not resuscitate; R53.1 Weakness; G47.33 Obstructive sleep apnea (adult) (pediatric); K21.9 Gastro-esophageal reflux disease without esophagitis; E11.9 Type 2 diabetes mellitus without complications; I46.8 Cardiac arrest due to other underlying condition